=== PATIENT | female | born 1950 | race Caucasian/White ===

== ENCOUNTER → 2018-06-08 08:56 | Outpatient (CLI) | payer MEDICARE, OTHER, SELFPAY ==
[2018-06-08 12:24] LABS: ALB/GLOB Ratio 1.1 RATIO (0.9-2.4); AST(SGOT) 19 U/L (15-37); Alanine Aminotransfer ALT/SGPT 35 U/L (13-56); Albumin, Serum 3.6 g/dL (3.2-5.0); Alkaline Phosphatase 74 U/L (45-117); Anion Gap 9 (5-15); BUN 17 mg/dL (7-18); BUN/Creat Ratio 21.9 RATIO (10-20); Calcium,Total 8.5 mg/dL (8.5-10.1); Chloride 108 mmol/L (98-107); Creatinine, Serum 0.78 mg/dL (0.55-1.02); EST Glomerular Filtration Rate 79 mL/min (>60); Est Glom Filt Rate - Afr Amer 96 mL/min (>60); Globulin 3.3 g/dL (2.2-4.2); Glucose 96 mg/dL (74-106); Potassium 3.9 mmol/L (3.5-5.1); Protein, Total 6.9 g/dL (6.4-8.2); Sodium Level 142 mmol/L (136-145); Thyroid Stim Hormone (TSH) 4.14 uIU/mL (0.358-3.74)
== END ==
PROVIDERS: Family Provider Family Medicine; PCP Family Medicine; Visit Provider Family Medicine
DX: R73.01 Impaired fasting glucose (principal); G47.30 Sleep apnea, unspecified
CPT/HCPCS: 36415; 80053; 84443

== ENCOUNTER → 2018-06-15 15:07 | Outpatient (CLI) | payer MEDICARE, OTHER, SELFPAY ==
--- NOTE | 2018-06-15 15:12 | RAD_ITS ---
STUDY: X-RAY - LEFT SHOULDER REASON FOR EXAM: Female, 68 years old. Pain. TECHNIQUE: 5 view(s) of the shoulder. COMPARISON: None. FINDINGS: There is moderate degenerative arthrosis of the glenohumeral articulation. Normal acromioclavicular joint. Normal acromion. There are surgical anchors in the humeral head. Otherwise normal femoral head and visualized proximal humerus. The soft tissue structures are unremarkable. Normal visualized pulmonary apex. RAD/Shoulder min 2 Views IMPRESSION: Degenerative arthrosis. Previous surgery. No demonstrated fracture, dislocation, or destructive osseous lesion. Electronically Signed: Nicolás Verdin MD at 3:12 EDT , Service support ,
--- NOTE | 2018-06-15 15:12 | RAD_ITS ---
STUDY: X-RAY - RIGHT KNEE REASON FOR EXAM: Female, 68 years old. Pain. TECHNIQUE: 4 view(s) of the knee, including weightbearing AP and lateral views. COMPARISON: None. FINDINGS: Normal visualized distal femur. Normal visualized proximal tibia and fibula. Normal proximal tibiofibular articulation. There is severe degenerative arthrosis of the medial femorotibial compartment with severe joint space narrowing. There is mild degenerative arthrosis of the lateral femorotibial compartment. There is mild degenerative arthrosis of the patellofemoral articulation. The soft tissue structures are unremarkable. RAD/Knee 4 or More Views IMPRESSION: Degenerative arthrosis. No demonstrated fracture, dislocation, or destructive osseous lesion. Electronically Signed: Nicolás Verdin MD at 3:10 EDT , Service support ,
== END ==
PROVIDERS: Family Provider Family Medicine; PCP Family Medicine; Visit Provider Family Medicine
DX: M25.561 Pain in right knee (principal); M25.512 Pain in left shoulder
CPT/HCPCS: 73030; 73564

== ENCOUNTER → 2018-07-13 09:55 | Outpatient (CLI) | payer MEDICARE, OTHER, SELFPAY ==
[2018-07-13 12:29] LABS: Free T3 3.4 pg/mL (2.18-3.98); T4 Free Direct 0.99 ng/dL (0.76-1.46); Thyroid Stim Hormone (TSH) 3.23 uIU/mL (0.358-3.74)
== END ==
PROVIDERS: Family Provider Family Medicine; PCP Family Medicine; Visit Provider Family Medicine
DX: R94.6 Abnormal results of thyroid function studies (principal)
CPT/HCPCS: 36415; 84439; 84443; 84481

== ENCOUNTER → 2018-07-30 08:53 | Outpatient (CLI) | payer MEDICARE, OTHER, SELFPAY | PROVIDERS: Family Provider Family Medicine; PCP Family Medicine; Visit Provider Family Medicine | DX: I47.1 Supraventricular tachycardia (principal) | CPT/HCPCS: 93306; Q9957; A4216; C8929 ==

== ENCOUNTER 2018-08-26 09:30 | Outpatient (RCR) | payer MEDICARE, OTHER, SELFPAY ==
--- NOTE | 2018-08-11 11:05 | HP.PTEVAL_ITS ---
Patient's Visit Information PARVIZ FARNSWORTH is a 68 year old F referred to Physical Therapy by Pedro Simon with a diagnosis of R knee osteoarthritis/bursitis. Date of Evaluation: 07/29/18 Physical Therapist: Vinay Tatum - Visit Plan Frequency: 1x/Week Duration: 4-6 Weeks Plan: start with US to pes anserine region, quad stretching,progressing to RLE strengthening as tolerated. - Subjective Subjective: Pt reported to PT with R knee osteoarthritis. Pt reports an insidious onset of pain over a year ago. Pain is located on the anterior medial knee along the joint line. Pain worsens with increased activity (walking, ascending/decending stairs). Pt reports a constant 5/10 pain throughout the day with an increase to a 9/10 with high levels of activity. Pain has been managed through ice, rest, and Aleve PRN with little relief. Pain has limited pt's ability to perform tasks around the house specifically anything that involves bending down, squating, or picking things up off the floor. Pain has also interfered with pt's ability to sleep. Pt reports dificulty finding sleeping postion that is comfortable for both preexisting back and current knee pain. Prior to injury, pt was fairly active and would take frequent walks with their . Pt hopes to return to prior level of function and return to taking walks with their . - Pain Right Knee Pain Intensity (Out of 10): 2 Pain Intensity Range: 5, 9 Comment: medial aspect - Objective POSTURE: Pt. has increased knee valgus positioning, increased tibial IR. Pt. has normal EMMA and normal iliac crest heights. PALPATION: Pain upon palatpion of the anterior medial knee along joint line. NEURO: Normal sensation throughout, 2+ DTR bilaterally. ROM: limited knee right knee flexion 0-100 increased pain at end ranges of motions. MMT: RLE- ankle 5/5 throughout; knee extension - 3+/5, flexion 4/5; hip- flexion 4/5, abd 4/5 ext 4/5. LLE- 4+/5 throughout. GAIT: slight antalgic gait on the right. limited right knee extension during stance phase. slight right weight shift during right leg stance phase. STAIRS: step to pattern noted throughout with use of BHR. - Goals Goal 1:: Pt. to be I with HEP. Goal Time Frame: 4-6 Weeks Goal 2:: Pt. to have incerased R knee ROM to 0-0-110deg allowing for increased tolerance to all functional mobility. Goal Time Frame: 4-6 Weeks Goal 3:: Pt. to be able to walk throughout the grocery store with 0-2/10 pain in R knee. Goal Time Frame: 4-6 Weeks Goal 4:: Pt. to negotiate steps with 1 HR with reciprocal pattern with 0-2/10 pain in R knee. Goal Time Frame: 4-6 Weeks Goal 5:: Pt. to have icnreased RLE strength increased by 1/2 grade of all effected musculature allowing for increased ability to complete all functional mobility. - Rehabilitation Potential Physical Therapy Diagnosis: Pt. has signs and symptoms consistent with R knee OA with pes anserine bursitis. Pt. would benefit from PT to reduce symptoms, increase R knee ROM and strength in order to progress back to all functional mobility as tolerated. Rehabilitation Potential: Good - Anticipated Interventions Patient/Client Instruction: Educate patient on: Condition, Plan of Care, Risk Factors, Benefits of Fitness Program For the Purpose of:: To facilitate caregiver knowledge, To improve self management, To prevent re-injury, To improve ability to perform tasks related to life management, To improve tolerance to ADL's Therapeutic Exercise to Include: Strength training, Power training, Gait and locomotor training, Passive ROM, Active ROM For the Purpose of:: To decrease pain, To increase ROM, To improve muscle performance and motor function Cryotherapy (ice pack, ice massage): Yes Ultrasound (thermal/non thermal): Yes For the Purpose of:: To decrease pain, To decrease swelling/inflammation Thank you for the opportunity to evaluate your patient. For Medicare and Medicare HMO plans, please review the plan of care and approve it. It will need to be FAXED BACK to us at [phone] for Medicare purposes. Please let me know if there are questions or concerns regarding this plan of care. Physician Signature: Date:
--- NOTE | 2018-08-26 12:42 | HP.PTDCSUM ---
HP - PT D/C Summary It has been my pleasure to treat PARVIZ FARNSWORTH under orders from Pedro Simon, for the diagnosis of R knee osteoarthritis/bursitis for a total of 5 visit(s). Discharge Date: 08/26/18 Please see the following information for a summary of their discharge status. - Subjective Subjective: pt does not feel as if they are making much progress. Pt is wanted to schedule an appointment with physician to discuss posibility of injections. Pt. reports being slightly stronger, but continues to have increased pain in R knee with all functional/standing positioning. - Pain Right Knee Pain Intensity (Out of 10): 4 - Overall Improvement % Improvement: 25 - Objective Objective/Function: ROM- 0-0-102deg increased pain at end ranges. MMT: RLE ankle 5/5 throughout. Knee- flexion 4+/5, ext 4+/5 mild increase in symptoms. Hip- flexion- 4/5 mild increase NW, abd 4+/5 NE, ext 4+/5. GAIT: Pt. is able to ambulate without AD, but does have increased symptom to 5/10 with all R stance phases of gait and stairs. Pt. has slight increase in R lateral translation during stance phase on R side. sufficient strength but limited due to pain. - Goals Goal 1:: Pt. to be I with HEP. Goal Progress: Goal Met Goal 2:: Pt. to have incerased R knee ROM to 0-0-110deg allowing for increased tolerance to all functional mobility. Goal Progress: Progressing Goal 3:: Pt. to be able to walk throughout the grocery store with 0-2/10 pain in R knee. Goal Progress: Progressing Goal 4:: Pt. to negotiate steps with 1 HR with reciprocal pattern with 0-2/10 pain in R knee. Goal Progress: Not Progressing Goal 5:: Pt. to have icnreased RLE strength increased by 1/2 grade of all effected musculature allowing for increased ability to complete all functional mobility. Goal Progress: Progressing - Plan Plan: refered to physician for injections - D/C Information Discharge Comments: Pt. reports being a little bit stronger in her hip and knee, but has not noticed much change in pain. Pt. was treated with strengthening/ROM and modalities. Pt. had some relief with modalities, but not lasting. She has slight increase in ROM and strength, but contiunes to have increased difficulty with functional mobility and walking. Pt. was curious about having injections at this point in time. I recommend that she follow up with her primary care physician at this point in time to determine best course of action. If there are questions or concerns regarding this patient's physical therapy, please feel free to call me at [phone]. Thank you for the referral of this patient. Sincerely, Vinay Tatum
== END 2018-08-26 19:00 | disposition home or self-care (01) ==
LOC: PT 09:30
PROVIDERS: Family Provider Family Medicine; PCP Family Medicine; Visit Provider Family Medicine
DX: M17.11 Unilateral primary osteoarthritis, right knee (principal); M70.51 Other bursitis of knee, right knee
CPT/HCPCS: 97035; 97110; 97162

== ENCOUNTER → 2018-11-01 09:47 | Outpatient (CLI) | payer MEDICARE, OTHER, SELFPAY ==
[2018-11-01 12:19] LABS: Hematocrit 45.3 % (37-47); Hemoglobin 14.8 g/dl (12.0-15.0); Mean Corp Hgb Conc 32.7 g/gl (32-36); Mean Corpuscular Hgb 30.6 pg (27.0-32.0); Mean Corpuscular Volume 93.6 fL (81-99); Mean Platelet Vol. 9.9 fl (6.2-12.0); Platelet Count 236 K/mm3 (150-450); RBC Distribution Width SD 47.8 fl (35.1-43.9); Red Blood Count 4.84 M/mm3 (4.2-5.4); White Blood Count 8.2 K/mm3 (4.4-11.0)
[2018-11-01 12:41] LABS: Vitamin B12 860 pg/mL (211-911); Vitamin D,25 Hydroxy 27.5 ng/mL (29.95-100.01)
[2018-11-01 12:42] LABS: Scan Indicated on CBC? Y/N NO
[2018-11-01 12:49] LABS: Anion Gap 7 (5-15); BUN 19 mg/dL (7-18); BUN/Creat Ratio 26.8 RATIO (10-20); Calcium,Total 9.3 mg/dL (8.5-10.1); Chloride 107 mmol/L (98-107); Creatinine, Serum 0.71 mg/dL (0.55-1.02); EST Glomerular Filtration Rate 88 mL/min (>60); Est Glom Filt Rate - Afr Amer 106 mL/min (>60); Free T3 2.8 pg/mL (2.18-3.98); Glucose 88 mg/dL (74-106); Iron 108 ug/dL (50-170); Potassium 4.1 mmol/L (3.5-5.1); Sodium Level 139 mmol/L (136-145); T4 Free Direct 0.94 ng/dL (0.76-1.46); Thyroid Stim Hormone (TSH) 3.59 uIU/mL (0.358-3.74)
== END ==
PROVIDERS: Family Provider Family Medicine; PCP Family Medicine; Visit Provider Family Medicine
DX: R94.6 Abnormal results of thyroid function studies (principal); R53.83 Other fatigue
CPT/HCPCS: 36415; 80048; 82306; 82607; 83540; 84439; 84443; 84481; 85027

== ENCOUNTER → 2019-02-21 08:45 | Outpatient (CLI) | payer MEDICARE, BC, SELFPAY | PROVIDERS: Family Provider Family Medicine; PCP Family Medicine; Visit Provider Family Medicine | DX: R79.89 Other specified abnormal findings of blood chemistry (principal) | CPT/HCPCS: 36415; 82306 ==

== ENCOUNTER 2019-03-11 23:36 | Emergency (ER) | payer MEDICARE, BC, SELFPAY ==
[2019-03-11 23:39] VITALS: BP 164/86; PULSE 89; RESP 18; TEMP 36.8; O2SAT 95; BMI 42.4
[2019-03-12 01:30] LABS: Hematocrit 47.2 % (37-47); Hemoglobin 16.3 g/dl (12.0-15.0); Mean Corp Hgb Conc 34.5 g/gl (32-36); Mean Corpuscular Hgb 31.5 pg (27.0-32.0); Mean Corpuscular Volume 91.1 fL (81-99); RBC Distribution Width CV 13.6 % (11.6-14.6); RBC Distribution Width SD 45.4 fl (35.1-43.9); Red Blood Count 5.18 M/mm3 (4.2-5.4); White Blood Count 11.7 K/mm3 (4.4-11.0)
[2019-03-12 01:31] LABS: Absolute Neutrophil Count 7.8 X10^3/uL (2.0-7.7); Basophil# 0.05 X10^3/uL; Basophil% 0.4 % (0-1); Eosinophil# 0.42 X10^3/uL; Eosinophils% 3.6 % (0-5); Lymphocyte % 17.1 % (19-41); Mean Platelet Vol. 9.5 fl (6.2-12.0); Monocyte# 1.34 X10^3/uL; Monocyte% 11.5 % (0-10); Neutrophil # 7.84 X10^3/uL (2.7-7.7); Neutrophil % 67.1 % (47-70); POSITIVE COUNT NO; POSITIVE DIFFERENTIAL NO; POSITIVE MORPHOLOGY NO; Platelet Count 206 K/mm3 (150-450)
[2019-03-12 01:43] LABS: Anion Gap 8 (5-15); BUN 24 mg/dL (7-18); BUN/Creat Ratio 27.6 RATIO (10-20); Calcium,Total 9.3 mg/dL (8.5-10.1); Chloride 104 mmol/L (98-107); Creatinine, Serum 0.87 mg/dL (0.55-1.02); EST Glomerular Filtration Rate 69 mL/min (>60); Est Glom Filt Rate - Afr Amer 84 mL/min (>60); Estimated Creatinine Clearance 54.18 ml/min; Glucose 113 mg/dL (74-106); Potassium 3.7 mmol/L (3.5-5.1); Sodium Level 138 mmol/L (136-145)
[2019-03-12 01:49] LABS: D-Dimer Quantitative (DVT/PE) 2.48 FEU/ug/m (0.27-0.49)
--- NOTE | 2019-03-12 02:00 | VDLE_ITS ---
Reason For Study: LLE pain Procedure LEFT Exam performed in department. GSV is normal. The study was technically difficult. PTV is compressible. The exam was diagnostic. LT PerV is compressible. A preliminary report was called and/or faxed CFV, FV, Profunda V, POP V, T/P trunk are to ED and sent to PCP Dr. Simon. DILATED & NON-COMPRESSIBLE. Image #13 is the DEIV. Gastrocnemius V is compressible. DEIV demonstrates flow with color & pulsed doppler. Interpretation Summary Acute deep vein thrombosis is noted in the left common femoral vein. Acute deep vein thrombosis is noted in the left femoral vein. Acute deep vein thrombosis is noted in the left profunda femoris vein. Acute deep vein thrombosis is noted in the left popliteal vein. Acute deep vein thrombosis is noted in the left tibio-peroneal trunk. The left posterior tibial vein, peroneal vein, and gastrocnemius vein are patent and compressible. The left great saphenous vein is patent and compressible. The distal left external iliac vein is visualized, and appears to be patent. Ordering Physician: Bam Kelly Referring Physician: Pedro Simon Performed By: Asia Walker RDCS, RVT
--- NOTE | 2019-03-12 02:02 | ED.DCSUM_ITS ---
- ER Visit Summary Date of Service: 03/12/19 Chief Complaint: Left leg pain and swelling History of Present Illness: The patient is a 69 F who presents with left leg pain and swelling. She is concerned for possible DVT. She has a history of prior DVT after surgery and she was also on oral control at the time. She complains of swelling in the left leg for about 2 weeks. She recently saw her primary care physician. She was also complaining of some cramping pain and they thought it may be related to potassium. She states her pain extends from the calf to behind the knee and up to her thigh. This is worsened in the last 2 days. No fevers. No chest pain or shortness of breath. Physical Examination: Afebrile vitals unremarkable except blood pressure 164/86 Heart regular rate No respiratory distress Patient does have left calf tenderness she has 1+ edema she has easily palpable dorsalis pedis pulses normal sensation light touch brisk capillary refill no cyanosis or pallor Test Results: Labs notable for white count 11.7, hemoglobin 16.3. D-dimer elevated at 2.48. Emergency Department Course and Treatment: Given presentation, prior history of DVT, elevated d-dimer, patient was empirically treated for DVT with subcutaneous Lovenox. We will have her return tomorrow for definitive study as ultrasound is not available overnight. At this time she has no evidence of phlegmasia alba dolens or phlegmasia cerulea dolens. She does understand return for new or worsening symptoms and was discharged home. Treatment Plan: [] Disposition: Discharge Impression: Left leg pain, possible DVT This note was generated with [employer] dictation software. It may contain incorrect words, spelling, and punctuation that were not noted in review of the chart prior to signing ED Disposition - Plan for ED Patient: Referrals: Arslan Simon MD [Primary Care Provider] -
--- NOTE | 2019-03-12 02:03 | ED.DEP ---
ED Disposition - Plan for ED Patient: Instructions: ED DVT Referrals: Arslan Simon MD [Primary Care Provider] -
[2019-03-12] MEDS: Enoxaparin 120 MG/0.8 ML Syringe SC (02:18)
[2019-03-12 02:20] VITALS: BP 159/76; PULSE 83; RESP 16; O2SAT 95
== END 2019-03-12 02:21 | disposition home or self-care (01) ==
PROVIDERS: Emergency Provider Emergency Medicine; Family Provider Family Medicine; PCP Family Medicine
DX: M79.605 Pain in left leg (principal); I10 Essential (primary) hypertension; I82.412 Acute embolism and thrombosis of left femoral vein; Z86.718 Personal history of other venous thrombosis and embolism
CPT/HCPCS: 80048; 85025; 85379; 85610; 93971; 96372; 99281; 99283; A4216

== ENCOUNTER 2019-03-12 11:02 | Emergency (ER) | payer MEDICARE, BC, SELFPAY ==
[2019-03-11 23:39] VITALS: BMI 42.4
[2019-03-12 11:03] VITALS: BP 137/79; PULSE 79; RESP 16; TEMP 36.9; O2SAT 98; BMI 42.4
--- NOTE | 2019-03-12 11:18 | ED.VISSUMM ---
- ER Visit Summary Date of Service: 03/12/19 Chief Complaint: Left leg DVT History of Present Illness: The patient is a 69 F who came in this morning for an outpatient ultrasound. She was seen last night for left leg swelling. She was given a dose of Lovenox and came back today for her ultrasound. She has a history of a DVT 18 years ago. Her swelling is been ongoing for about 6 days. No chest pain or shortness of breath Physical Examination: Vitals are reviewed. Left leg exam reveals diffuse mild swelling. There is no erythema. She has 1+ DP pulses. She has full range of motion without any significant pain. Test Results: Outpatient Doppler report was reviewed. There is DVT of the femoral vein, common femoral vein, popliteal vein and the TP trunk Emergency Department Course and Treatment: Patient will be started on Eliquis. I spoke with Dr. Mera who is on-call for her PCP. He will make the PCP aware that we will be starting anticoagulation. Treatment Plan: [] Disposition: Discharge Impression: Left leg DVT This note was generated with [employer] dictation software. It may contain incorrect words, spelling, and punctuation that were not noted in review of the chart prior to signing ED Disposition - Plan for ED Patient: Referrals: Arslan Simon MD [Primary Care Provider] -
--- NOTE | 2019-03-12 11:19 | ED.DEP ---
ED Disposition - Plan for ED Patient: Disposition: Home or Assisted Living Instructions: ED DVT Prescriptions: Apixaban [Eliquis] 5 mg PO BID #74 tab Referrals: Arslan Simon MD [Primary Care Provider] -
[2019-03-12] MEDS: APIXABAN 5 MG TABLET 10 MG PO (11:57)
== END 2019-03-12 12:18 | disposition home or self-care (01) ==
LOC: ED 11:31
PROVIDERS: Emergency Provider Emergency Medicine; Family Provider Family Medicine; PCP Family Medicine
DX: I82.412 Acute embolism and thrombosis of left femoral vein (principal); Z86.718 Personal history of other venous thrombosis and embolism
CPT/HCPCS: 99283

== ENCOUNTER → 2019-03-12 | Outpatient (CLI) | payer MEDICARE, BC, SELFPAY ==
[2019-03-11 23:39] VITALS: BMI 42.4
== END | disposition home or self-care (01) ==
PROVIDERS: Family Provider Family Medicine; PCP Family Medicine; Visit Provider Emergency Medicine
DX: R69 Illness, unspecified (principal)

== ENCOUNTER → 2019-03-31 08:15 | Outpatient (CLI) | payer MEDICARE, BC, SELFPAY ==
[2019-03-12 11:03] VITALS: BMI 42.4
[2019-03-31 10:13] LABS: Anion Gap 7 (5-15); BUN 18 mg/dL (7-18); Calcium,Total 8.9 mg/dL (8.5-10.1); Chloride 104 mmol/L (98-107); Creatinine, Serum 0.78 mg/dL (0.55-1.02); EST Glomerular Filtration Rate 78 mL/min (>60); Est Glom Filt Rate - Afr Amer 94 mL/min (>60); Glucose 107 mg/dL (74-106); Potassium 3.9 mmol/L (3.5-5.1); Sodium Level 139 mmol/L (136-145)
== END ==
PROVIDERS: Family Provider Family Medicine; PCP Family Medicine; Referring Provider Family Medicine; Visit Provider Family Medicine
DX: I10 Essential (primary) hypertension (principal)
CPT/HCPCS: 36415; 80048

== ENCOUNTER → 2019-04-26 | Outpatient (CLI) | payer MEDICARE, BC, SELFPAY ==
[2019-04-26 10:23] LABS: Anion Gap 11 (5-15); BUN 18 mg/dL (7-18); BUN/Creat Ratio 20.8 RATIO (10-20); Calcium,Total 9.2 mg/dL (8.5-10.1); Chloride 107 mmol/L (98-107); Creatinine, Serum 0.86 mg/dL (0.55-1.02); EST Glomerular Filtration Rate 70 mL/min (>60); Est Glom Filt Rate - Afr Amer 84 mL/min (>60); Glucose 118 mg/dL (74-106); Potassium 3.9 mmol/L (3.5-5.1); Sodium Level 143 mmol/L (136-145)
== END | disposition home or self-care (01) ==
LOC: MFPLAB 08:51
PROVIDERS: Family Provider Family Medicine; PCP Family Medicine; Referring Provider Family Medicine; Visit Provider Family Medicine
DX: I10 Essential (primary) hypertension (principal)
CPT/HCPCS: 36415; 80048

== ENCOUNTER → 2019-08-16 | Outpatient (CLI) | payer MEDICARE, BC, SELFPAY ==
--- NOTE | 2019-08-16 08:39 | ECHOCS_ITS ---
Reason For Study: DYSPNEA Procedure This was a 2D Doppler, Color Flow transthoracic echocardiogram. The study was technically difficult. Contrast injection was performed. Exam performed in department. Left Ventricle Normal LV size. Left ventricular systolic function is normal. The estimated ejection fraction is 60 %. Diastolic function is indeterminate. No regional wall motion abnormalities noted. Right Ventricle Normal RV size. Normal systolic function. Atria The left atrium is mildly enlarged. Normal right atrium. No doppler evidence for ASD. Mitral Valve There is no mitral annular calcification. Normal mitral valve. Trivial mitral valve insufficiency. Tricuspid Valve Normal tricuspid valve. Trivial tricuspid valve insufficiency. Unable to estimate RV systolic pressure/pulmonary artery pressure due to technically difficult study. Aortic Valve Trisinus/trileaflet aortic valve. Normal aortic valve. Pulmonic Valve The pulmonic valve is not well visualized. Trivial pulmonic valve insufficiency. Great Vessels Normal sized aortic root. Pericardium/Pleural No pericardial effusion. Epicardial fat. Medication 22 gauge I.V. with prn adaptor inserted into right arm. Diluted definity 3.0ml given slow IV push to enhance endocardial definition. MMode/2D Measurements & Calculations LVIDd: 4.5 cm IVSd: 0.86 cm Ao root diam: 3.6 cm LVIDs: 3.3 cm LVPWd: 0.92 cm RVDd: 3.7 cm FS: 28.2 % LAV(MOD-bp): 56.9 ml LVAd ap4: 32.3 cm2 SV(MOD-sp4): 65.1 ml LAV(MOD-bp) Indexed: 26.5 ml/m2 EDV(MOD-sp4): 112.7 ml LAV(MOD-sp2): 56.7 ml EDV(sp4-el): 118.6 ml LAV(MOD-sp4): 54.1 ml LVAs ap4: 17.9 cm2 ESV(MOD-sp4): 47.6 ml ESV(sp4-el): 48.9 ml EF(MOD-sp4): 57.8 % EF(sp4-el): 58.8 % SV(sp4-el): 69.7 ml LA A4 area: 19.4 cm2 LA dimension(2D): 4.1 cm RA A4 area: 13.3 cm2 Time Measurements MV dec time: 0.20 sec Doppler Measurements & Calculations MV E max arcenio: 84.2 cm/sec Lat Peak E' Arcenio: 8.1 cm/sec Med Peak E' Arcenio: 4.8 cm/sec MV A max arcenio: 130.8 cm/sec E/E' lat: 10.4 E/E' med: 17.6 MV E/A: 0.64 Ao V2 max: 162.2 cm/sec LV V1 max: 137.9 cm/sec PA V2 max: 94.2 cm/sec Ao max P.5 mmHg LV V1 max P.6 mmHg Interpretation Summary The study was technically difficult. Contrast injection was performed. Left ventricular systolic function is normal. The estimated ejection fraction is 60 %. The left atrium is mildly enlarged. Trivial mitral valve insufficiency. Trivial tricuspid valve insufficiency. Trivial pulmonic valve insufficiency. Epicardial fat. Unable to estimate RV systolic pressure/pulmonary artery pressure due to technically difficult study. Diastolic function is indeterminate. Ordering Physician: Dionicio Sneed Referring Physician: FARNAZ PECK Performed By: Sherly Velázquez, TEENA, RVT
== END | disposition home or self-care (01) ==
LOC: CVS 08:38
PROVIDERS: Family Provider Family Medicine; PCP Family Medicine; Referring Provider Internal Medicine Pulmonary Disease; Visit Provider Internal Medicine Pulmonary Disease
DX: R06.00 Dyspnea, unspecified (principal)
CPT/HCPCS: 93306; Q9957; A4216; C8929

== ENCOUNTER → 2019-09-20 | Outpatient (CLI) | payer MEDICARE, BC, SELFPAY ==
--- NOTE | 2019-09-20 10:32 | RAD_ITS ---
STUDY: X-RAY CHEST REASON FOR EXAM: Female, 69 years old. Short of breath. TECHNIQUE: 2 view chest. COMPARISON: 02/27/2016 CTA chest. FINDINGS: No evidence of pneumonia, pulmonary edema, pneumothorax or pleural effusion. Cardiac silhouette, hilar and mediastinal contours with no acute findings. Atherosclerosis of the thoracic aorta. Degenerative osseous changes with no acute osseous abnormality. Orthopedic anchors left humeral head. RAD/Chest PA and Lateral IMPRESSION: No acute findings. Electronically Signed: Luciano Mitchell, at 18:50 EDT Tel , Service support ,
[2019-09-20 12:16] LABS: Absolute Lymphocyte Count 1.62 X10^3/uL (0.83-4.51); Absolute Neutrophil Count 4.7 X10^3/uL (2.0-7.7); Basophil# 0.08 X10^3/uL; Basophil% 1.1 % (0-1); Eosinophils% 2.7 % (0-5); Hematocrit 47.3 % (37-47); Hemoglobin 15.8 g/dL (12.0-15.0); Lymphocyte # 1.62 X10^3/ul (4.0); Lymphocyte % 21.8 % (19-41); Mean Corp Hgb Conc 33.4 g/dL (32-36); Mean Corpuscular Hgb 30.7 pg (27.0-32.0); Mean Platelet Vol. 9.7 fl (6.2-12.0); Monocyte# 0.78 X10^3/uL; Monocyte% 10.5 % (0-10); NRBC Flagged by Analyzer 0 % (0-5); Neutrophil # 4.72 X10^3/uL (2.7-7.7); Neutrophil % 63.6 % (47-70); Platelet Count 260 K/mm3 (150-450); RBC Distribution Width CV 13.2 % (11.6-14.6); RBC Distribution Width SD 44.6 fl (35.1-43.9); Red Blood Count 5.14 M/mm3 (4.2-5.4); White Blood Count 7.4 K/mm3 (4.4-11.0)
[2019-09-20 12:32] LABS: AST(SGOT) 13 U/L (15-37); Alanine Aminotransfer ALT/SGPT 32 U/L (13-56); Albumin, Serum 3.7 g/dL (3.2-5.0); Alkaline Phosphatase 74 U/L (45-117); Anion Gap 6 (5-15); BUN 18 mg/dL (7-18); BUN/Creat Ratio 21.6 RATIO (10-20); CRP 3.52 mg/L (0.0-3.0); Calcium,Total 9.4 mg/dL (8.5-10.1); Chloride 105 mmol/L (98-107); Creatinine, Serum 0.83 mg/dL (0.55-1.02); EST Glomerular Filtration Rate 73 mL/min (>60); Est Glom Filt Rate - Afr Amer 88 mL/min (>60); Ferritin 111 ng/mL (8-252); Globulin 3.6 g/dL (2.2-4.2); Glucose 90 mg/dL (74-106); Hemoglobin A1c 5.6 % (4.2-6.3); Iron 84 ug/dL (50-170); Potassium 3.9 mmol/L (3.5-5.1); Protein, Total 7.3 g/dL (6.4-8.2); Rheumatoid Factor < 10.0 IU/mL (<15); Sodium Level 138 mmol/L (136-145)
[2019-09-20 12:33] LABS: Vitamin B12 464 pg/mL (211-911); Vitamin D,25 Hydroxy 40.3 ng/mL (29.95-100.01)
[2019-09-21 21:18] LABS: ANTINUCLEAR ANTIBODIES DIRECT Negative (Negative)
[2019-09-22 16:07] LABS: PROEL- A/G Ratio 1.2 (0.7-1.7); PROEL- Albumin 3.5 g/dL (2.9-4.4); PROEL- Alpha-1 Globulin 0.3 g/dL (0.0-0.4); PROEL- Alpha-2 Globulin 0.8 g/dL (0.4-1.0); PROEL- Beta Globulin 1.2 g/dL (0.7-1.3); PROEL- Gamma Globulin 0.7 g/dL (0.4-1.8); PROEL- TOTAL PROTEIN 6.5 g/dL (6.0-8.5); PROELU- Albumin, Urine 21.5 % (.); PROELU- Alpha-1-Globulin,Ur 3.8 % (.); PROELU- Alpha-2-Globulin,Ur 19.2 % (.); PROELU- Beta Globulin, Ur 33.3 % (.); PROELU- Gamma Globulin, Ur 22.2 % (.); Total Protein, Ur 4.8 mg/dL (Not Estab.)
== END | disposition home or self-care (01) ==
LOC: MTRAD 10:29
PROVIDERS: Family Provider Family Medicine; PCP Family Medicine; Referring Provider Family Medicine; Visit Provider Family Medicine
DX: R06.02 Shortness of breath (principal); R73.01 Impaired fasting glucose; R53.83 Other fatigue; R79.89 Other specified abnormal findings of blood chemistry
CPT/HCPCS: 36415; 71046; 80053; 82306; 82607; 82728; 83036; 83540; 84165; 84166; 84443; 85025; 86038; 86140; 86431

== ENCOUNTER → 2020-07-09 08:17 | Outpatient (CLI) | payer MEDICARE, BC, SELFPAY ==
[2020-07-09 09:46] LABS: Hemoglobin 15.5 g/dL (12.0-15.0); Mean Corpuscular Hgb 30.7 pg (27.0-32.0); Mean Corpuscular Volume 93.1 fL (81-99); Platelet Count 273 K/mm3 (150-450); RBC Distribution Width CV 13.6 % (11.6-14.6); RBC Distribution Width SD 46.3 fl (35.1-43.9); Red Blood Count 5.05 M/mm3 (4.2-5.4); White Blood Count 6.4 K/mm3 (4.4-11.0)
[2020-07-09 10:16] LABS: International Normalized Ratio 1.8; Partial Thromboplast Time 38.3 Seconds (24.1-36.2); Prothrombin Time (Protime)PT. 20.1 SECONDS (11.7-14.9); Vitamin D,25 Hydroxy 51.9 ng/mL
[2020-07-09 10:34] LABS: AST(SGOT) 12 U/L (15-37); Alanine Aminotransfer ALT/SGPT 33 U/L (13-56); Albumin, Serum 3.6 g/dL (3.2-5.0); Alkaline Phosphatase 71 U/L (45-117); Anion Gap 9 (5-15); BUN 17 mg/dL (7-18); BUN/Creat Ratio 21.4 RATIO (10-20); Calcium,Total 8.7 mg/dL (8.5-10.1); Chloride 105 mmol/L (98-107); Cholesterol 149 mg/dL (200); Creatinine, Serum 0.79 mg/dL (0.55-1.02); EST Glomerular Filtration Rate 77 mL/min (>60); Est Glom Filt Rate - Afr Amer 93 mL/min (>60); Globulin 3.5 g/dL (2.2-4.2); Glucose 103 mg/dL (74-106); High Density Lipoprotein 53 mg/dL; Potassium 3.4 mmol/L (3.5-5.1); Protein, Total 7.1 g/dL (6.4-8.2); Sodium Level 139 mmol/L (136-145); Thyroid Stim Hormone (TSH) 3.96 uIU/mL (0.358-3.74); Triglycerides 92 mg/dL; Very Low Density Lipoprotein 18 mg/dL (5-40)
[2020-07-10 10:27] LABS: T4 Free Direct 1.14 ng/dL (0.76-1.46)
== END ==
PROVIDERS: PCP Family Medicine; Referring Provider Family Medicine; Visit Provider Family Medicine
DX: Z01.818 Encounter for other preprocedural examination (principal); R79.89 Other specified abnormal findings of blood chemistry; R73.01 Impaired fasting glucose; I10 Essential (primary) hypertension; M85.80 Other specified disorders of bone density and structure, unspecified site; M79.89 Other specified soft tissue disorders
CPT/HCPCS: 36415; 80053; 80061; 82306; 84439; 84443; 85027; 85610; 85730

== ENCOUNTER → 2020-07-20 12:57 | Outpatient (CLI) | payer MEDICARE, BC, SELFPAY ==
--- NOTE | 2020-07-20 13:02 | CT_ITS ---
STUDY: CT SCAN LOWER EXTREMITY RIGHT REASON FOR EXAM: Female, 70 years old. Right knee varus deformity, [facility] protocol. RADIATION DOSAGE (If Supplied By Facility): CTDIvol = ( 19.41 ) mGy, DLP = ( 1186.15 ) mGycm. Individualized dose optimization techniques were used for this CT.? TECHNIQUE: Multiple axial tomographic images of the right hip, knee and ankle joints were obtained. Coronal and sagittal reconstruction was obtained as well. COMPARISON: None. FINDINGS: The right hip joint is unremarkable. No significant abnormality is seen. Marked degree of joint space narrowing with degenerative spurring seen along the medial compartment of the knee joint. There is also evidence of degenerative spur formation in the anterior aspect of the femoral condyles. Mild degree of joint space narrowing involving the patellofemoral joint. There is evidence of mild sclerotic changes at the level of the medial and lateral femoral condyles. The ankle mortise is symmetrical. No significant abnormality is seen. CT/Extremity Lower without Contra IMPRESSION: Marked degree of osteoarthritis and joint space narrowing with degenerative spur formation along the medial compartment of the knee joint. Electronically Signed: Bashir Crenshaw, at 15:03 EDT , Service support ,
== END ==
PROVIDERS: PCP Family Medicine; Referring Provider Specialist; Visit Provider Specialist
DX: M21.161 Varus deformity, not elsewhere classified, right knee (principal)
CPT/HCPCS: 73700

== ENCOUNTER 2020-08-08 09:53 | Observation (INO) | payer MEDICARE, BC, SELFPAY ==
--- NOTE | 2020-07-20 23:50 | HP.PCM_ITS ---
History and Physical History and Physical [facility] Patient Name: Bessy Tracy : 1950 From: ISMAEL AGRAWAL PA-C DATE OF SURGERY: 08/08/2020 SCHEDULED PROCEDURE: right total knee arthroplasty HISTORY OF PRESENT ILLNESS: Preoperative history and physical exam was performed on July 20, 2020. This is a 70-year-old female who has been having ongoing pain for over 4 years with no known injury. Her right knee pain has been constant, aching, sharp, stabbing, sore. She has increased pain with stairs, walking, and driving. She has difficult time with activities of daily living including bathing, housework, shopping, and leisure activities such as playing with her grandkids and walking. She feels unsafe getting down on her knees and using ladders. Patient has attempted conservative measures consisting of corticosteroid injection with initial injections helping followed by minimal relief with injections. She has tried physical therapy with no relief in symptoms. She has tried Visco supplementation injections with no relief in symptoms. She has also attempted post acute care registered nurse with no relief in symptoms. She has been on oral medications consisting of Celebrex and exercise Tylenol with no relief in symptoms. Patient denies previous surgery on the right knee. She has attempted a brace with no relief in symptoms. Patient currently denies chest pain, shortness of breath, fevers chills, recent infections. She has medical history pertinent for sleep apnea, hypertension, previous history of blood clots which occurred in 2001 after a surgery and in 2019. She has been on Coumadin. We'll obtain surgical clearance from the primary care physician Dr. Rowan. At this time he is getting clearance to stop the Coumadin 5 days before surgery and he will be bridging with Lovenox 120 mg b.i.d. Lovenox will be stopped the night prior to the surgery and then restarted postoperatively with the Coumadin. He will recommend stopping the Lovenox once the INR is greater than 2. After failing conservative measures and discussing treatment options with Dr. Dat [place], the patient does wish to proceed with right total knee arthroplasty. She also has an adhesive allergy and we will avoid using any adhesive postoperatively. She also reports having a reaction from previous surgery at [facility] with absorbable sutures. REVIEW OF SYSTEMS: ROS: Const: Denies anorexia, change in appetite, fever, hard of hearing, vision problems and weight change. CV: Denies chest pain, heart murmur, irregular heartbeat and peripheral vascular disease. Resp: Denies asthma, cough, pneumonia, sleep apnea, SOB, tuberculosis and wheezing. GI: Denies constipation, diarrhea, difficulty swallowing, heartburn, nausea, bloody stools and vomiting. : Urinary: denies incontinence. Musculo: Reports trouble walking and weakness of the legs, but denies leg swelling, limp and weakness. Skin: Reports history of shingles, but denies Raynaud's and tattoo. Neuro: Reports numbness and tingling of the left hand and tremor but denies ambulatory dysfunction, dizziness and numbness/tingling. Psych: Denies anxiety, depression, insomnia, mental illness and stress. Sarmad/Lymph: Denies anemia, bleeding/bruising tendency and past transfusion. Reviewed, no changes. PAST MEDICAL HISTORY: PMH: Problem List: Obesity, Body mass index 40+ - severely obese, Acquired genu varum, Localized, primary osteoarthritis Medical Problems: Melanoma, Vocal Chord Disfunction, Superventricular Tachycardia, Diastolic Disfuntion, Blood Clots, Sleep Apnea, Degenerative Disc Disease, Osteopenia, Basal Cell Carcinoma Accidents: None Surgical Hx: Tonsillectomy, [place] Teeth, D & C, Tubal Ligation Shoulder Arthroscopy LT - ROTATOR CUFF SURGERY - DR BETANCUR @[facility] Lumbar Micro Surgery Bulging Disc - DR SANJUANA RICKETTS @ [facility] Moh's Surgery - SKIN CA @ [facility] Moh's Surgery - FOR MELANOMA Lumpectomy - (2010) BREAST Anesthesia Complications: Vomiting, Nausea, Hypotension, Trouble Waking Up Assistive Devices: Glasses, Cpap Reviewed and updated. SOCIAL HISTORY: SH: Marital: .Occupation: Retired.Work Status: Retired.Hand Dominance: Right- handed. Personal Habits: Cigarette Use: Never Smoked Cigarettes.Alcohol: Denies use.Drug Use: Denies Use.Enjoy Exercising: Exercises 1-3 X/Week. Reviewed, no changes. VITALS: Ht: 64 Wt: 247lb Wt k.039 BMI: 42.4 BP: 122/67 Pulse: 72 Resp: 16 T: 96.5 T: 35.8C ALLERGIES: Sulfa - Rash Atenolol Adhesives Disposable Stitches - chromic gut and monocryl MEDICATIONS: Biotin 1000 mcg 1po tid, Dilt-XR 120 mg 1po qday, Warfarin Sodium 4 mg 1 by mouth every day, Furosemide 20 mg 1 by mouth every day, Magnesium 200 mg 1po qday, Calcium + D 500-1000-40 MG-Unt-mcg 1po qday, Vitamin D3 1po qday PRE-OP EXAM: General appearance:NORMAL Other: Eyes: Conjunctivae and lids: NORMAL Pupils: ERR Ears, Nose, Mouth, and Throat: NORMAL Other: Inspection of lips, teeth and gums: NORMAL Other: Neck: Examination of neck: no masses noted. Respiratory: Assessment of respiratory effort: NORMAL Other: Auscultation of lungs: clear to auscultation no wheezes, rhonchi or rales. Cardiovascular: Auscultation of heart: regular rate and rhythm, no murmurs, gallops or rubs. Exam of carotid arteries: NORMAL Other: Gastrointestinal: Exam of abdomen: soft, nontender, nondistended bowel sounds present. PHYSICAL EXAMINATION: She walks with an antalgic gait. Patient's right knee is cool to touch without erythema or signs of infection. Varus deformity appreciated. Varus deformity is partially correctable. Range of motion: Lacks 10 of full extension to 140 flexion. Sensation intact to light touch. Neurovascularly intact. IMAGING STUDIES: X-rays of the right knee reveal joint space narrowing with varus alignment, subcondylar sclerosis, osteophyte formation consistent with severe stage IV osteoarthritis. IMPRESSION: 1. Severe right knee osteoarthritis 2. Hypertension 3. Sleep apnea 4. History of blood clots 2000 and 2019: Currently on Coumadin 5. Degenerative disc disease 6. History of basal cell carcinoma PLAN: Dr. Dat Cuba did discuss and review with the patient all treatment options including surgical versus nonsurgical options. Patient does wish to proceed with the above-stated procedure. Potential risks, benefits, and complications of the procedure were discussed in detail including but not limited to , infection, nerve and blood vessel damage, persistent pain, numbness, tingling, paresthesias, blood clot, pulmonary embolism, and requirement for possible further surgery. The patient expressed full understanding and has no further questions for the doctor. Patient does agree to proceed with the above-stated procedure and has signed the surgery consent form. We discussed the current risks associated with COVID 19. This does include the risk of exposure while in the hospital. Patient was reassured local hospitals have low infection rates and are taking all necessary precautions to avoid exposure to patients. In addition, we discussed strategies that can be used to help limit exposure including those that limit the patient's time in the ho spital. Also using strategies to limit the patient's need for continued inpatient services after being discharged from the hospital. Patient was notified that we will need to comply with any screening or testing the hospital wishes to perform or that surgery may be delayed for any positive results. This dictation was created using voice recognition software. Phonetic and/or grammatical errors may exist. ___ I have re-examined the patient. There are no clinical changes since date of exam. ___ See progress notes for changes. ___ Dictated on admission Date: Time: Signature:
[2020-08-02 09:34] LABS: Magnesium 2.5 mg/dL (1.6-2.6)
[2020-08-08] VITALS (11 sets, daily range): BP systolic 116–135; BP diastolic 48–77; PULSE 68–93; RESP 16–20; TEMP 36.1–36.8; O2SAT 93–100; BMI 42.0; BMI 42.1
--- NOTE | 2020-08-08 07:08 | RAD_ITS ---
STUDY: X-RAY - RIGHT KNEE REASON FOR EXAM: Female, 70 years old. POST OP. TECHNIQUE: 2 view(s) of the knee. COMPARISON: Comparison is made with prior study dated 06/15/2018. FINDINGS: Normal visualized distal femur. Normal visualized proximal tibia and fibula. Normal proximal tibiofibular articulation. The patient is status post total knee replacement. There is good alignment. Postoperative soft tissue changes. RAD/Knee 1 or 2 Views IMPRESSION: Status post total knee replacement. There is good alignment. Postoperative soft tissue changes. Electronically Signed: Bashir Crenshaw, at 15:02 EDT , Service support ,
[2020-08-08 08:45] LABS: Prothrombin Time Fingerstick 15.2 SEC (11.9-14.4)
[2020-08-08] MEDS: Lactated Ringers 1,000 ML 999 ML IV ×2 (09:15→12:40)
[2020-08-08] MEDS: Gabapentin 600 MG Tablet PO (09:48)
[2020-08-08] MEDS: Acetaminophen 500 MG Tablet 1000 MG PO ×2 (09:49→17:29)
[2020-08-08 10:41] LABS: Bedside Glucose 79 mg/dL (70-110)
[2020-08-08] MEDS: dexAMETHasone 10 MG/ML Vial IV (10:58)
--- NOTE | 2020-08-08 12:06 | PCM.OPRPT ---
Report of Operation Date of Procedure: 08/08/20 Pre-Operative Diagnosis: Right knee primary osteoarthritis Post-Operative Diagnosis: Right knee primary osteoarthritis Surgery/Procedure Performed:: Right minimally invasive robotic assisted total knee replacement Description of Surgical Findings:: Stable knee with good patella tracking servicenow administrator: Michael Drummond Type of Anesthesia:: Spinal Anesthesiologist: Luiz Cortes Special Medications: 2 g Ancef, 1 g TXA at incision, 1 g TXA closure, 10 mg Decadron, joint cocktail (5 mg Duramorph, 30 mL of 0.5% Ropivicaine, 1000 units of epinephrine, 30 mg of Toradol) Estimated Blood Loss (mL): 30 Fluids Replaced: 1500 mL crystalloid Description of Procedure: Implants used: 1. Lyndon size 3 triathlon cruciate retaining distal femoral press-fit component 2. [place]don size 4 press-fit tritanium tibial baseplate 3. [place] X3 9mm polyethylene 4. [place] X3 32mm asymmetric patella Brief history operative indications: 70-year-old F with history of right knee osteoarthritis with radiographic findings with loss of joint space, osteophyte formation and subchondral sclerosis. Failed conservative measures as mentioned in the H&P. Discussion of total knee arthroplasty as well as risk and benefits were discussed the patient including but not limited to blood loss, DVTs, PEs, neurovascular damage, general risk of anesthesia including loss of life, and stiffness or instability were discussed with patient. Patient demonstrated understanding and was able to sign informed consent. Procedure: On the date of procedure patient's right lower extremity was marked in the preoperative area. The patient was then taken back to the operating room where the patient was placed on the table in the supine position. All bony prominences were identified a well-padded. Anesthesia assumed control of the C-spine and airway and remained controlled throughout the remainder of the procedure. A tourniquet was placed on the right upper thigh and the leg was prepped in a sterile fashion. The surgeon then scrubbed at this time .Upon reentering the room right lower extremity was draped in a standard orthopedic fashion. A timeout was then called and everyone agreed upon the side, the site, the procedure to be performed, patient's identity and antibiotics given. Esmarch bandage was used to exsanguinate the extremity and the tourniquet was placed up to 250 mmHg with the knee in flexion. A midline skin incision was made and sharp dissection was taken down through skin subcutaneous tissue and fat. The standard medial parapatellar incision was made and the patella was subluxed laterally. An Appropriate deep MCL release was done and the fat pad was resected. Our attention was then directed to the patella. The patella was everted and a flat resection was made. The knee was then flexed up in 2 femoral pins were placed inside the incision and 2 tibial pins were placed outside the incision in the medial tibia bicortically. Once this was completed the 2 checkpoints in the femur and tibia were placed. Knee was then flexed up and the bony landmarks were registered. Once this was completed knee was taken through range of motion and manually stressed allowing us to a plan for an appropriate tibial cut. The robotic arm was brought into the field sterilely and checkpoint and saw were registered. Based on the patient's deformity the tibial cut was made 2 degrees varus. At this time the tensioner was then placed in the joint and ligament tension was checked at 90 degrees and full extension. Based on the patient's ligamentous tension appropriate adjustments were made to the operative plan and ligament releases were done. Once we were happy with our operative plan with balanced flexion and extension gaps our attention was directed to the femur. The robot was brought into the field sterilely and registered. Posterior condylar cuts, anterior chamfer cuts and anterior cuts were appropriately made for a size 3 femur. When these were completed the saws were switched out in the distal femoral and posterior chamfer cuts were made. Protecting the soft tissue throughout this time. A size 4 tibial base plate was selected. the knee was flexed to 90 degrees and the soft tissues and posterior osteophytes were removed from the joint. 40 cc of the periarticular injection was injected into the posterior medial corner of the joint. The appropriate trials were then placed on the femur and tibia. A trial polyethylene was trialed to ensure proper balancing and stability of the knee. The appropriate tibial internal rotation was then marked with a bovie. Our attention was then directed to the patella. The lug holes were drilled and the patella trial was placed. Patellar tracking was checked and deemed appropriate. Once we were happy lug holes were drilled for the femur and trial components were removed. the tibia was subluxed and pinned into place and the keel was punched and drilled appropriately. Final components were verified and opened, and cement was mixed in a vacuum. Neuro Kinetics Simplex cement was used. The wound was copiously irrigated with normal saline. When the cement was ready the components were impacted into place starting with the tibia, femur and finally cementing the patella. The trial poly component was placed and the knee was placed in full extension. All excess cement was removed in the process. Once the cement had cured the tracking, alignment and balance were verified and a size 9 mm CS polyethylene component was placed. Once the final components were placed an Irrisept lavage was performed and the wound was copiously irrigated with normal saline solution and the periarticular injection was given. The wound was closed in a layer mera fashion using #1 vicryl interrupted sutures for the arthrotomy, 2-0 interrupted Vicryl suture for the subcuticular layer and martha for final skin closure. A sterile compressive dressing was then placed. The patient was then awakened from anesthesia, transferred to the [facility] and transferred to the PACU for recovery. Post op plan DVT ppx: ASA 81mg BID, thigh high compression stockings Follow up: in office in 2 weeks for wound check PT: to start POD #0 at hospital, outpatient PT should be arranged. My physician cleaner assistant was a vital part of this case. He was important in appropriate retraction during the case, and protection of soft tissues during bony cuts. His intimate knowledge of the case and my steps aided in safe and expedient completion of the procedure as well as appropriate position of the leg during the case. He was also vital in assisting with closure under my direct supervision. Due to the complexity of this case robotic arm was used to assist in the surgery to improve accuracy and clinical outcomes. - Complications No intraoperative complications - Admit VTE Documentation VTE Present on Admission: No VTE Mechan Device Prophylaxis: SCD's, Thigh High SULLY Hose VTE Pharm Prophylaxis ordered?: Yes
[2020-08-08] MEDS: Scopolamine 1mg/72hr Patch 1 PATCH TD (13:07)
[2020-08-08] MEDS: Lactated Ringers 1,000 ML 125 ML IV (13:40)
--- NOTE | 2020-08-08 14:29 | PN_ITS ---
Subjective: Ms Tracy is a 70 yo female with a PMH of OA, Diastolic Dysfunction, AIDA, Melanoma, Basal Cell Carcinoma, SVT, H/O DVT, HTN, and MO who was admitted on 08/08/2020 for an elective R TKA. She had been having pain for over 4 yrs and the pain was constant. It had gotten so severe that she was unable to do many IADL's and she has now failed conservative mgt of steroid injections, PT, Visco injections, bracing and oral medications for pain. She is on Coumadin at baseline for he h/o DVT's and to be bridged with Lovenox. She currently is feeling well. Denies any complaints including pain. Had spinal anesthesia and a nerve block. Vitals/I&O's: Vital Signs Temp Pulse Resp BP Pulse Ox 97.3 F L 78 16 122/63 H 93 08/08/20 14:03 08/08/20 14:03 08/08/20 14:03 08/08/20 14:03 08/08/20 14:03 Oxygen Flow Rate (L/min) 6 Oxygen Delivery Method Room Air Weight: 111.2 kg Body Mass Index (BMI) 42.0 Intake and Output for Last 24 Hours 08/06/20 08/07/20 08/08/20 23:59 23:59 23:59 Intake Total 2341.5 / 2341.5 Balance 2341.5 / 2341.5 General: Alert, Oriented x3, Cooperative, No apparent distress, Well developed, Well nourished, - - Obese WF sitting on BSC, appears comfortable, okay with me examining her and nsg at bedside HEENT: Atraumatic, PERRLA, EOMI, Normocephalic, EAC Clear Oral: No Gingival or Mucosal Lesions/ Ulcerations, Dry Mucosa Neck: Supple, No JVD, Negative Carotid Bruits, No Nodes, Trachea Midline, Thyroid Normal Size and Texture Lungs: Clear to auscultation, No rhonchi, No wheeze, No rales Cardiovascular: Regular rate, Regular Rhythm, Normal S1, Normal S2, No murmurs, No Ectopic Activity, No rub noted, No Gallop Abdomen: Bowel Sounds Present, Soft, Non Tender, Non-Distended, No hernias noted Extremities: No clubbing, No cyanosis, Capillary Refill Less than 3 Seconds, Edema - trace, Peripheral Pulses Normal Skin: No rashes, No breakdown Musculoskeletal: No Muscle Wasting, Arthritic Changes Neurological: Cranial nerves II-XII grossly intact, Neuro grossly intact, Muscle tone normal, Coordination normal Psych/Mental Status: Normal Affect, Appropriate, Alert and oriented to time, place, person, mood and affect Laboratory Results 08/08/20 08:44: POC PT 15.2 H, INR 1.20 08/08/20 09:10: Free T4 1.10 08/08/20 09:37: POC Glucose 79 Current Medications Acetaminophen (Tylenol) 1,000 mg PO Q8H [facility] Calcium/Vitamin D (Os-Bruno 500mg + D) 1 tablet PO DAILY@1200 CED Cholecalciferol (Vitamin D (25mcg)) 2,000 unit PO DAILY [facility] Diltiazem HCl (Cardizem Cd) 120 mg PO DAILY [facility] Enteral Nutritional Formula (Ensure Surgery) 237 ml PO TIDCM [facility] Last Admin: 08/08/20 14:08 Dose: Not Given Documented by: Famotidine (Pepcid) 20 mg PO DAILY [facility] Furosemide (Lasix) 20 mg PO DAILY [facility] Lactated Ringer's () 1,000 mls @ 125 mls/hr IV .Q8H [facility] Stop: 08/08/20 18:29 Last Admin: 08/08/20 13:40 Dose: 125 mls/hr Documented by: Lactated Ringer's () 1,000 mls @ 125 mls/hr IV .Q8H [facility] Cefazolin Sodium () 1 gm in 50 mls @ 150 mls/hr IV Q8H [facility] Stop: 08/09/20 02:49 Sodium Chloride () 250 mls @ 15 mls/hr IV .[id number] PRN PRN Reason: Saline Flush Sodium Chloride () 250 mls @ 15 mls/hr IV .[id number] PRN PRN Reason: Additional IVPB Infusion Insulin Human Lispro (Humalog Kwikpen ([facility])) 1 - 6 unit SC Q4H PRN PRN; Protocol PRN Reason: BG>/= 180, SEE PROTOCOL Ketorolac Tromethamine (Toradol (Bkc)) 15 mg IV Q6H PRN PRN PRN Reason: Pain Score 1-5/10 Magnesium Chloride (Mag64) 128 mg PO DAILY [facility] Morphine Sulfate () 2 - 4 mg IV Q2H PRN PRN PRN Reason: Pain Score 6-10/10 Ondansetron HCl (Zofran) 4 mg IV Q8H PRN PRN PRN Reason: NAUSEA Oxycodone HCl (Oxyir) 5 - 10 mg PO Q4H PRN PRN PRN Reason: Pain Score 4-10/10 Promethazine HCl (Phenergan) 12.5 mg IM Q6H PRN PRN; Protocol PRN Reason: NAUSEA/VOMITING Scopolamine HBr (Transderm-Scop) 1 patch TD Q3D [facility] Stop: 08/08/20 16:01 Last Admin: 08/08/20 13:07 Dose: 1 patch Documented by: Senna/Docusate Sodium (Senokot-S, Ana-Colace) 2 tablet PO BID [facility] Sodium Chloride () 10 - 40 ml IV UD PRN PRN Reason: SALINE FLUSH Warfarin Sodium (Jantoven) 4 mg PO DAILY@1700 [facility] STROKE Vital Signs/Narrative: Vital Signs Temp Pulse Resp BP Pulse Ox 08/08/20 14:03 97.3 F L 78 16 122/63 H 93 08/08/20 13:44 97.1 F L 81 16 121/56 H 98 08/08/20 13:30 97 F L 89 17 126/54 H 100 08/08/20 13:15 96.9 F L 83 17 126/57 H 100 08/08/20 13:00 96.9 F L 86 18 132/48 H 100 08/08/20 12:47 89 18 125/62 H 100 08/08/20 12:40 96.9 F L 93 20 H 131/58 H 99 Medical Necessity - Tobacco Use Smoking Status: Never smoker Tobacco Use: Non-smoker Assessment/Plan POD #0 R TKA -WBAT -pain meds per ortho -bowel regimen -PT/OT -mgt per Ortho H/O DVT L LE -is on chronic coumadin but has been off and bridged with Lovenox -last dose of Lovenox was yesterday am -coumadin is ordered for tomorrow -d/w Dr. Cuba re: starting lovenox and he is fine from a surgical standpoint to start in the am -will start Lovenox 110 BID tomorrow am -would recommend 2 consecutive therapeutic INR's prior to d/c of lovenox HTN -continue Cardizem -continue lasix SVT -no current issues -continue CCB Diastolic Dysfunction -control BP and HR OA -as above H/O Skin Cancer -no currently issues MO -recommend wgt loss DVT prophylaxis -start therapeutic dose lovenox in the am -OAC in am Inpatient E&M: 64947 Subs Hosp L2
[2020-08-08] MEDS: Ensure Surgery 237 ML LIQUID PO (17:30)
[2020-08-08] MEDS: Lactated Ringers 1,000 ML 75 ML IV (17:30)
[2020-08-08] MEDS: Midazolam 2 MG/2 ML Syringe 4 MG IV (17:34)
[2020-08-08] MEDS: fentaNYL 100 MCG/2 ML Ampul IV (17:34)
[2020-08-08] MEDS: Cefazolin 1 GM/50 ML BAG IV (17:38)
--- NOTE | 2020-08-08 21:00 | NURSING ---
Pt's oxygen sats were dropping into the high 80's on room air. When I checked her pulse ox she was 90%. O2 @ 2L provided. Sats currently 92%.
[2020-08-08] MEDS: oxyCODONE 5 MG Tablet PO (21:38)
[2020-08-08] MEDS: Senna/Docusate Sodium 1 Tablet 2 TABLET PO (21:38)
[2020-08-09 02:00] VITALS: BP 132/71; PULSE 73; RESP 16; TEMP 36.5; O2SAT 97
[2020-08-09] MEDS: Cefazolin 1 GM/50 ML BAG IV (02:01)
[2020-08-09 02:03] VITALS: BMI 42.1
[2020-08-09] MEDS: Acetaminophen 500 MG Tablet 1000 MG PO ×2 (02:19→09:44)
[2020-08-09] MEDS: oxyCODONE 5 MG Tablet PO ×3 (05:27→11:22)
[2020-08-09] MEDS: Enoxaparin 120 MG/0.8 ML Syringe 110 MG SC (05:29)
[2020-08-09 05:31] VITALS: BMI 42.1
[2020-08-09 05:45] VITALS: BP 106/75; PULSE 75; RESP 16; TEMP 36.6; O2SAT 96
[2020-08-09 06:18] LABS: Hemoglobin 14.1 g/dL (12.0-15.0); Mean Corp Hgb Conc 33.6 g/dL (32-36); Mean Corpuscular Hgb 31.3 pg (27.0-32.0); Mean Corpuscular Volume 93.1 fL (81-99); Mean Platelet Vol. 9.8 fl (6.2-12.0); Platelet Count 244 K/mm3 (150-450); RBC Distribution Width CV 13.6 % (11.6-14.6); RBC Distribution Width SD 46.8 fl (35.1-43.9); Red Blood Count 4.51 M/mm3 (4.2-5.4); White Blood Count 15.9 K/mm3 (4.4-11.0)
[2020-08-09 06:40] LABS: Anion Gap 5 (5-15); BUN 14 mg/dL (7-18); BUN/Creat Ratio 20.1 RATIO (10-20); Calcium,Total 9.3 mg/dL (8.5-10.1); Chloride 107 mmol/L (98-107); EST Glomerular Filtration Rate 89 mL/min (>60); Est Glom Filt Rate - Afr Amer 107 mL/min (>60); Glucose 139 mg/dL (74-106); Potassium 4.2 mmol/L (3.5-5.1); Sodium Level 140 mmol/L (136-145)
--- NOTE | 2020-08-09 07:43 | PCM.PN.HOSP ---
Reason for Visit: Follow-up on right minimally invasive robotic assisted total knee replacement/history of recurrent left lower extremity DVT, on chronic anticoagulation Subjective: Shunt was seen and examined. Working with therapy. Her pain is fairly controlled. Denied any chest pain or dizziness or shortness of breath. Discussed with orthopedic surgery PA, patient will be discharged today. Recommended continuation of Lovenox and Coumadin bridging. INR today is 1.12. Objective: Physical exam: General: Alert, Oriented x3, Cooperative, No apparent distress, Well developed, Well nourished, morbidly obese HEENT: Atraumatic, PERRLA, EOMI, Normocephalic, EAC Clear Oral: No Gingival or Mucosal Lesions/ Ulcerations, Dry Mucosa Neck: Supple, No JVD, Negative Carotid Bruits, No Nodes, Trachea Midline, Thyroid Normal Size and Texture Lungs: Clear to auscultation, No rhonchi, No wheeze, No rales Cardiovascular: Regular rate, Regular Rhythm, Normal S1, Normal S2, No murmurs, No Ectopic Activity, No rub noted, No Gallop Abdomen: Bowel Sounds Present, Soft, Non Tender, Non-Distended, No hernias noted Extremities: No clubbing, No cyanosis, Capillary Refill Less than 3 Seconds, Edema - trace, Peripheral Pulses Normal Skin: No rashes, No breakdown Musculoskeletal: Dressing over the right anterior knee, slight swelling with old blood Neurological: Cranial nerves II-XII grossly intact, Neuro grossly intact, Muscle tone normal, Coordination normal Psych/Mental Status: Normal Affect, Appropriate, Alert and oriented to time, place, person, mood and affect Vitals/I&O's: Vital Signs Temp Pulse Resp BP Pulse Ox 97.8 F 75 16 106/75 96 08/09/20 05:45 08/09/20 05:45 08/09/20 05:45 08/09/20 05:45 08/09/20 05:45 Oxygen Flow Rate (L/min) 6 Oxygen Delivery Method Room Air Weight: 111.2 kg Body Mass Index (BMI) 42.0 Intake and Output for Last 24 Hours 08/07/20 08/08/20 08/09/20 23:59 23:59 23:59 Intake Total 3391.5 / 3391.5 1468.75 / 1468.75 Output Total 400 / 400 Balance 2991.5 / 2991.5 1468.75 / 1468.75 Laboratory Results 08/08/20 08:44: POC PT 15.2 H, INR 1.20 08/08/20 09:10: Free T4 1.10 08/08/20 09:37: POC Glucose 79 08/09/20 06:05: WBC 15.9 H, RBC 4.51, Hgb 14.1, Hct 42.0, MCV 93.1, MCH 31.3, MCHC 33.6, RDW Std Deviation 46.8 H, RDW Coeff of Gallo 13.6, Plt Count 244, MPV 9.8 08/09/20 06:05: Sodium 140, Potassium 4.2, Chloride 107, Carbon Dioxide 28.0, Anion Gap 5, BUN 14, Creatinine 0.70, Estim Creat Clear Calc 46.50, Est GFR (MDRD) Af Amer 107, Est GFR (MDRD) Non-Af 89, BUN/Creatinine Ratio 20.1 H, Glucose 139 H, Calcium 9.3 Current Medications Acetaminophen (Tylenol) 1,000 mg PO Q8H [facility] Last Admin: 08/09/20 02:19 Dose: 1,000 mg Documented by: Calcium/Vitamin D (Os-Bruno 500mg + D) 1 tablet PO DAILY@1200 [facility] Cholecalciferol (Vitamin D (25mcg)) 2,000 unit PO DAILY [facility] Diltiazem HCl (Cardizem Cd) 120 mg PO DAILY [facility] Enoxaparin Sodium (Lovenox) 110 mg SC Q12@0600,1800 [facility] Last Admin: 08/09/20 05:29 Dose: 110 mg Documented by: Enteral Nutritional Formula (Ensure Surgery) 237 ml PO TIDCM [facility] Last Admin: 08/08/20 17:30 Dose: 237 ml Documented by: Famotidine (Pepcid) 20 mg PO DAILY [facility] Furosemide (Lasix) 20 mg PO DAILY [facility] Last Admin: 08/08/20 17:28 Dose: Not Given Documented by: Sodium Chloride () 250 mls @ 15 mls/hr IV .[id number] PRN PRN Reason: Saline Flush Sodium Chloride () 250 mls @ 15 mls/hr IV .[id number] PRN PRN Reason: Additional IVPB Infusion Insulin Human Lispro (Humalog Michael (Bkc)) 1 - 6 unit SC Q4H PRN PRN; Protocol PRN Reason: BG>/= 180, SEE PROTOCOL Ketorolac Tromethamine (Toradol (Bkc)) 15 mg IV Q6H PRN PRN PRN Reason: Pain Score 1-5/10 Magnesium Chloride (Mag64) 128 mg PO DAILY [facility] Morphine Sulfate () 2 - 4 mg IV Q2H PRN PRN PRN Reason: Pain Score 6-10/10 Ondansetron HCl (Zofran) 4 mg IV Q8H PRN PRN PRN Reason: NAUSEA Oxycodone HCl (Oxyir) 5 - 10 mg PO Q4H PRN PRN PRN Reason: Pain Score 4-10/10 Last Admin: 08/09/20 07:13 Dose: 5 mg Documented by: Promethazine HCl (Phenergan) 12.5 mg IM Q6H PRN PRN; Protocol PRN Reason: NAUSEA/VOMITING Senna/Docusate Sodium (Senokot-S, Ana-Colace) 2 tablet PO BID [facility] Last Admin: 08/08/20 21:38 Dose: 2 tablet Documented by: Sodium Chloride () 10 - 40 ml IV UD PRN PRN Reason: SALINE FLUSH Warfarin Sodium (Jantoven) 4 mg PO DAILY@1700 [facility] STROKE Vital Signs/Narrative: Vital Signs Temp Pulse Resp BP Pulse Ox 08/09/20 05:45 97.8 F 75 16 106/75 96 Medical Necessity - Tobacco Use Smoking Status: Never smoker Tobacco Use: Non-smoker Assessment/Plan 1. Postop day #1 status post right minimally invasive robotic total knee replacement, pain is fairly controlled, Continue on pain regimen, follow-up on orthopedic, PT and OT recommendation 2. History of recurrent left lower extremity DVT, on chronic anticoagulation Restarted on Lovenox yesterday, INR today is 1.2 Patient will need to continue with Lovenox bridging with Coumadin -she states that Dr. Rowan is going to manage her subtherapeutic INR Discussed with orthopedic surgery, patient will need prescription for more Lovenox until she sees Dr. Rowan. Patient has enough warfarin at home -not make any changes to her dose. 3. Hypertension/history of SVT/chronic diastolic CHF, all remain stable in this admission, Continue on Cardizem, Lasix, oral magnesium 4. Morbid obesity, BMI 42.1, lifestyle recommendations recommended 5. DVT prophylaxis on therapeutic Lovenox Inpatient E&M: 99823 Subs Hosp L2
--- NOTE | 2020-08-09 09:31 | PCM.PN.ORT ---
Subjective: The patient was sitting in bedside chair upon examination. Patient denies any chest pain, shortness of breath, dizziness, lightheadedness, nausea or vomiting, or calf pain. Pain is controlled on medications. No adverse overnight events. Patient just finished physical therapy. She does have soreness in the knee but therapy states she did well. Patient is currently on Lovenox and Coumadin. She has history of previous DVTs. She has been managed by her primary care physician Dr. Rowan. Dr. Rowan was covering her perioperatively with Lovenox. She does have prescription for the Lovenox but states it runs out on Thursday. She has not getting there INR checked until Thursday. She needs a prescription for the Lovenox for Thursday. Objective: Vital signs stable and afebrile. Patient is able to plantarflex and dorsiflex actively. Sensation is intact to light touch to saphenous, sural, superficial and deep peroneal, and tibial distribution. Soft dressing with Hola wrap is intact with no breakthrough drainage. Patient has adhesive allergy and was not able to use the Mepilex dressing. Negative Homans bilaterally, negative signs and symptoms of DVT. - Physical Exam Vitals/I&O's: Vital Signs Temp Pulse Resp BP Pulse Ox 97.8 F 75 16 106/75 96 08/09/20 05:45 08/09/20 05:45 08/09/20 05:45 08/09/20 05:45 08/09/20 05:45 Oxygen Flow Rate (L/min) 6 Oxygen Delivery Method Room Air Weight: 111.2 kg Body Mass Index (BMI) 42.0 Intake and Output for Last 24 Hours 08/07/20 08/08/20 08/09/20 23:59 23:59 23:59 Intake Total 3391.5 / 3391.5 1468.75 / 1468.75 Output Total 400 / 400 Balance 2991.5 / 2991.5 1468.75 / 1468.75 General: Alert, Oriented x3, Cooperative, No apparent distress Laboratory Results 08/08/20 09:10: Free T4 1.10 08/08/20 09:37: POC Glucose 79 08/09/20 06:05: WBC 15.9 H, RBC 4.51, Hgb 14.1, Hct 42.0, MCV 93.1, MCH 31.3, MCHC 33.6, RDW Std Deviation 46.8 H, RDW Coeff of Gallo 13.6, Plt Count 244, MPV 9.8 08/09/20 06:05: Sodium 140, Potassium 4.2, Chloride 107, Carbon Dioxide 28.0, Anion Gap 5, BUN 14, Creatinine 0.70, Estim Creat Clear Calc 46.50, Est GFR (MDRD) Af Amer 107, Est GFR (MDRD) Non-Af 89, BUN/Creatinine Ratio 20.1 H, Glucose 139 H, Calcium 9.3 Current Medications Acetaminophen (Tylenol) 1,000 mg PO Q8H [facility] Last Admin: 08/09/20 02:19 Dose: 1,000 mg Documented by: Calcium/Vitamin D (Os-Bruno 500mg + D) 1 tablet PO DAILY@1200 [facility] Cholecalciferol (Vitamin D (25mcg)) 2,000 unit PO DAILY [facility] Diltiazem HCl (Cardizem Cd) 120 mg PO DAILY [facility] Enoxaparin Sodium (Lovenox) 110 mg SC Q12@0600,1800 [facility] Last Admin: 08/09/20 05:29 Dose: 110 mg Documented by: Enteral Nutritional Formula (Ensure Surgery) 237 ml PO TIDCM [facility] Last Admin: 08/08/20 17:30 Dose: 237 ml Documented by: Famotidine (Pepcid) 20 mg PO DAILY [facility] Furosemide (Lasix) 20 mg PO DAILY [facility] Last Admin: 08/08/20 17:28 Dose: Not Given Documented by: Sodium Chloride () 250 mls @ 15 mls/hr IV .[id number] PRN PRN Reason: Saline Flush Sodium Chloride () 250 mls @ 15 mls/hr IV .[id number] PRN PRN Reason: Additional IVPB Infusion Insulin Human Lispro (Humalog Kwikpen ([facility])) 1 - 6 unit SC Q4H PRN PRN; Protocol PRN Reason: BG>/= 180, SEE PROTOCOL Ketorolac Tromethamine (Toradol ([facility])) 15 mg IV Q6H PRN PRN PRN Reason: Pain Score 1-5/10 Magnesium Chloride (Mag64) 128 mg PO DAILY [facility] Morphine Sulfate () 2 - 4 mg IV Q2H PRN PRN PRN Reason: Pain Score 6-10/10 Ondansetron HCl (Zofran) 4 mg IV Q8H PRN PRN PRN Reason: NAUSEA Oxycodone HCl (Oxyir) 5 - 10 mg PO Q4H PRN PRN PRN Reason: Pain Score 4-10/10 Last Admin: 08/09/20 07:13 Dose: 5 mg Documented by: Promethazine HCl (Phenergan) 12.5 mg IM Q6H PRN PRN; Protocol PRN Reason: NAUSEA/VOMITING Senna/Docusate Sodium (Senokot-S, Ana-Colace) 2 tablet PO BID [facility] Last Admin: 08/08/20 21:38 Dose: 2 tablet Documented by: Sodium Chloride () 10 - 40 ml IV UD PRN PRN Reason: SALINE FLUSH Warfarin Sodium (Jantoven) 4 mg PO DAILY@1700 [facility] Medical Necessity - Tobacco Use Smoking Status: Never smoker Tobacco Use: Non-smoker Assessment/Plan 1. S/P right total knee arthroplasty POD #1 2. Continue Pain Medications: Tylenol and oxycodone 3. DVT Prophylaxis: Patient is resuming her Coumadin and is currently being bridged with Lovenox. Patient has enough Lovenox to get through to Thursday and will need additional prescription for Thursday. She follows with her primary care physician on Thursday with INR check. If INR is greater than 2 she will be able to stop her Lovenox. 4. PT/OT: Weightbearing as tolerated 5. H & H: 14.1/42.0, asymptomatic 6. Reactive leukocytosis: Currently 15.9, afebrile. Patient did receive Decadron intraoperatively 7. Continue postoperative medical management per medicine: Case was discussed and plan will be for discharge home today 8. Encouraged Incentive Spirometry 9. Disposition: Orthopedically stable, plan will be for discharge home today. Prescriptions will be E scribed to her primary pharmacy. Patient will follow-up per postop instructions. She does have outpatient physical therapy established. Patient was instructed that she has not to get the dressing wet for the first 5 days. After 5 days she can then remove the dressing and shower with only soap and water. No ointments, salves, Neosporin, or alcohol pads on the incision for 6 weeks. She can continue with ice and elevation for the swelling. I have reviewed the [place] Automated Rx Reporting System (OARRS) report for this patient for refill pattern and other prescriber involvement as part of the appropriate surveillance for the provision of acute and chronic controlled medications. The report was requested and reviewed on the date of this entry and was considered in the prescribing process.
[2020-08-09 09:33] VITALS: BP 140/73; PULSE 67; RESP 18; TEMP 36.6; O2SAT 96
--- NOTE | 2020-08-09 09:40 | DCINST_ITS ---
Discharge Diet: No Restrictions Discharge Activity: May Not Drive May shower in (days): 4 - Okay to shower and get incision wet on August 13, 2020 Ice area for (Minutes): 20 - every hour while awake. Weight Bearing Status: Weight bearing as tolerated Elevate: Operative Extremity Additional Activity Instructions:: Wear elastic stockings for 2 weeks after your surgery. Call your doctor if your incision/area has: Continuous Slow Oozing, Sudden Increased Bleeding, Increased Pain/ Swelling, Increased Redness, Foul Smelling Discharge Call your doctor if you observe: Fever of 101 or Higher, Coldness, Increased Pain, Numbness or Tingling, Change in Color, Calf discomfort, Uncontrolled pain Change Dressing in (Days):: 1 - and daily as needed. Remove Dressing in (days):: 4 - Okay to remove dressing on August 13, 2020 Additional Instructions: Follow orthopedic postop instructions Patient will follow treatment plan that was established by Dr. Rowan with regards to her perioperative DVT prophylaxis with Lovenox and Coumadin Allergies/Adverse Reactions: Allergies adhesive Allergy (Verified 08/08/20 09:22) Rash risedronate sodium [From Actonel] Allergy (Verified 08/08/20 09:22) Swelling SORE JOINTS AND MUSCLES Sulfa (Sulfonamide Antibiotics) Allergy (Verified 08/08/20 09:22) Other DISPOSABLE STITCHES Allergy (Uncoded 08/08/20 09:22) Rash Medications to take at Discharge Diltiazem HCl [Dilt-Xr] 120 mg PO DAILY 03/12/19 Biotin 5 mg PO DAILY 07/25/20 Calcium Carb/Vitamin D3/Vit K1 [Calcium + D Soft Chewable Tab] 1 ea PO DAILY 07/25/20 Cholecalciferol (Vitamin D3) [Vitamin D3] 2,000 unit PO DAILY 07/25/20 Furosemide [Lasix] 20 mg PO DAILY 07/25/20 Magnesium Oxide [Magnesium] 400 mg PO DAILY 07/25/20 Warfarin [Coumadin] 4 mg PO DAILY 07/25/20 Enoxaparin Sodium [Lovenox] 120 mg SQ BID 08/08/20 Acetaminophen [Tylenol] 1,000 mg PO TID #100 tab 08/09/20 Enoxaparin [Lovenox] 110 mg SUBCUT Q12@0600,1800 #2 syringe 08/09/20 Oxycodone [Oxyir] 5 - 10 mg PO Q4H PRN PRN 5 Days #60 tab 08/09/20 Senna/Docusate Sodium [Senokot-S] 2 tab PO BID #10 tab 08/09/20 The following prescriptions were given: Enoxaparin [Lovenox] 110 mg SUBCUT Q12@0600,1800 #2 syringe Transmission Status: Pending to [id number] Oxycodone [Oxyir] 5 - 10 mg PO Q4H PRN PRN 5 Days #60 tab PRN Reason: Pain Score 4-10 Transmission Status: Received by [id number] Senna/Docusate Sodium [Senokot-S] 2 tab PO BID #10 tab Transmission Status: Pending to [id number] Acetaminophen [Tylenol] 1,000 mg PO TID #100 tab Transmission Status: Pending to [id number] Primary Care Physician: Arslan Simon MD [Primary Care Provider] - Test Results: Test results from this visit will be discussed in further detail at your follow- up appointment, if applicable. Please Follow Up With: Physical Therapy When: 08/13/20 @ 10:00 am Please Follow Up With: Jeramy Munoz PA-C When: 08/22/20 @ 9:30 am
[2020-08-09] MEDS: Famotidine 20 MG Tablet PO (09:42)
[2020-08-09] MEDS: 0.9% Saline Lock 10 ML Syringe IV (09:42)
[2020-08-09] MEDS: Senna/Docusate Sodium 1 Tablet 2 TABLET PO (09:42)
[2020-08-09] MEDS: Ensure Surgery 237 ML LIQUID PO (09:42)
[2020-08-09] MEDS: Magnesium Chloride 64 MG Delay Rel.Tablet 128 MG PO (09:42)
[2020-08-09] MEDS: dilTIAZem CD 120 MG Capsule PO (09:43)
[2020-08-09] MEDS: Calcium Carb/Vitamin D 1 TABLET Tablet PO (09:43)
[2020-08-09] MEDS: Ketorolac 15 MG/ML Vial IV (09:43)
--- NOTE | 2020-08-09 10:40 | CASEMGMT ---
JAIMEE ALFORD Face to Face with patient for initial transition planning/care coordination assessment. RN PRASHANTH introduced self and role at [facility]. Patient sitting in chair, alert and oriented. Patient willing to participate in assessment and is able to answer all questions appropriately. Care providers, pharmacy, and demographics verified. Patient wishes to discharge home, and is setup with outpatient therapy at [facility]. Patient states he has no further needs or concerns at this time. CM to follow for discharge planning needs that may arise. PCP: Alfred Specialists: rosa [place]; Nedra, pulmonology Preferred Pharmacy: [facility] Insurance: [employer] Cathie Prescription Benefit: yes Living Will/HPOA: yes, daughter Alejandra Dickens LNOK: Living Arrangements: Patient lives with in a 1 story home with 2 step to enter the home. Patient states she was independent prior to surgery. Transportation: DME/HHC: Patient states she has raised toilet, cane, walker, wheelchair, and Cpap at home. Patient is scheduled for outpatient therapy at [facility] for Thursday. Disposition Plan: Patient to discharge home with outpatient therapy, family support, and follow-up plans in place. Simran CHAVEZ, RN, CM
--- NOTE | 2020-08-09 12:10 | CASEMGMT ---
JAIMEE ALFORD in to completed PARIKH for with patient. RN PRASHANTH explained PARIKH for to patient, patient voiced understanding. PARIKH form signed by patient and original filed on chart. Copy of signed form provided to patient. Patient had no further questions or concerns at this time.
--- NOTE | 2020-08-09 14:29 | PHA.DC.MC ---
Pharmacy Service has performed discharge medication reconciliation and counseling for this patient. The patient was counseled on the following discharge medications and changes in medications for homegoing were reviewed. 1. LOVENOX 2. OXYCODONE 3. SENNA/DOC 4. TYLENOL The Reason for Use, instructions for use, and potential side effects were reviewed for all new medications. The patient's questions regarding all of their medications were answered. The patient was able to verbally demonstrate an understanding of their discharge medications. Home Medications Diltiazem HCl [Dilt-Xr] 120 mg PO DAILY 03/12/19 Biotin 5 mg PO DAILY 07/25/20 Calcium Carb/Vitamin D3/Vit K1 [Calcium + D Soft Chewable Tab] 1 ea PO DAILY 07/25/20 Cholecalciferol (Vitamin D3) [Vitamin D3] 2,000 unit PO DAILY 07/25/20 Furosemide [Lasix] 20 mg PO DAILY 07/25/20 Magnesium Oxide [Magnesium] 400 mg PO DAILY 07/25/20 Warfarin [Coumadin] 4 mg PO DAILY 07/25/20 Enoxaparin Sodium [Lovenox] 120 mg SQ BID 08/08/20 Acetaminophen [Tylenol] 1,000 mg PO TID #100 tab 08/09/20 Enoxaparin [Lovenox] 110 mg SUBCUT Q12@0600,1800 #2 syringe 08/09/20 Oxycodone [Oxyir] 5 - 10 mg PO Q4H PRN PRN 5 Days #60 tab 08/09/20 Senna/Docusate Sodium [Senokot-S] 2 tab PO BID #10 tab 08/09/20 The patient's discharge medication list was reviewed for discrepancies and discrepancies were resolved.
== END 2020-08-09 14:05 | disposition home or self-care (01) ==
LOC: SDC 09:53 → MS3 09:53
PROVIDERS: Anesthesiology; Admitting Provider Specialist; PCP Family Medicine; Referring Provider Specialist; Visit Provider Internal Medicine
PROC: 0SRC0JZ Replacement of Right Knee Joint with Synthetic Substitute, Open Approach (ICD-10-PCS; CPT 27447; principal; 2020-08-08 10:00)
DX: M17.11 Unilateral primary osteoarthritis, right knee (principal); Z11.59 Encounter for screening for other viral diseases; G47.33 Obstructive sleep apnea (adult) (pediatric); I11.0 Hypertensive heart disease with heart failure; E66.01 Morbid (severe) obesity due to excess calories; I47.1 Supraventricular tachycardia; Z79.01 Long term (current) use of anticoagulants; Z86.718 Personal history of other venous thrombosis and embolism; Z79.899 Other long term (current) drug therapy; Z68.41 Body mass index [BMI] 40.0-44.9, adult
CPT/HCPCS: 01400; 27447; 64448; S2900; 36415; 36416; 73560; 80048; 82962; 83735; 84439; 85027; 85610; 87081; 87635; 96361; 96365; 96366; 96375; 97110; 97116; 97162; 97166; 97530; 99218; 99251; C1776; C9803; J7120; A4216; G0378; G0463; J2405; U0003

== ENCOUNTER → 2020-08-13 11:10 | Outpatient (CLI) | payer MEDICARE, BC, SELFPAY ==
[2020-08-08 14:03] VITALS: BMI 42.0
--- NOTE | 2020-08-13 11:14 | VDLE_ITS ---
Reason For Study: Pain right leg RIGHT GSV is normal. CFV is compressible, spontaneous, phasic, competent and demonstrates normal augmentation. FV is compressible, spontaneous, phasic, competent and demonstrates normal augmentation. POP V is compressible, spontaneous, phasic, competent and demonstrates normal augmentation. T/P Trunk is compressible. PTV is compressible. RT PerV is compressible. Procedure Exam performed in department. A preliminary report was called and/or faxed to Tammy. Interpretation Summary Deep veins of the right lower extremity are patent and compressible segmentally. There is no evidence of right lower extremity deep vein thrombosis. Valvular competence appears intact within the proximal deep venous system on the right . The right great saphenous vein appears patent and compressible segmentally. Ordering Physician: Jeramy Munoz Referring Physician: Pedro Simon MD Performed By: Simran Rosario RVT
== END ==
PROVIDERS: PCP Family Medicine; Referring Provider Physician Assistant Surgical; Visit Provider Physician Assistant Surgical
DX: M79.662 Pain in left lower leg (principal)
CPT/HCPCS: 93971

== ENCOUNTER → 2020-11-01 13:49 | Outpatient (CLI) | payer MEDICARE, BC, SELFPAY ==
[2020-08-08 14:03] VITALS: BMI 42.0
[2020-11-01 15:40] LABS: Absolute Lymphocyte Count 1.74 X10^3/uL (0.83-4.51); Basophil# 0.08 X10^3/uL; Basophil% 0.9 % (0-1); Eosinophil# 0.31 X10^3/uL; Eosinophils% 3.5 % (0-5); Hematocrit 46.4 % (37-47); Hemoglobin 14.7 g/dL (12.0-15.0); Lymphocyte # 1.74 X10^3/ul (4.0); Lymphocyte % 19.4 % (19-41); Mean Corp Hgb Conc 31.7 g/dL (32-36); Mean Corpuscular Hgb 29.1 pg (27.0-32.0); Mean Corpuscular Volume 91.9 fL (81-99); Mean Platelet Vol. 9.6 fl (6.2-12.0); Monocyte# 0.78 X10^3/uL; Monocyte% 8.7 % (0-10); NRBC Flagged by Analyzer 0 % (0-5); Neutrophil # 6.04 X10^3/uL (2.7-7.7); Neutrophil % 67.2 % (47-70); Platelet Count 311 K/mm3 (150-450); RBC Distribution Width CV 13.8 % (11.6-14.6); RBC Distribution Width SD 47.4 fl (35.1-43.9); Red Blood Count 5.05 M/mm3 (4.2-5.4)
[2020-11-01 15:59] LABS: Erythrocyte Sedimentation Rate 15 mm/hr (0-30)
== END ==
PROVIDERS: PCP Family Medicine; Referring Provider Specialist; Visit Provider Specialist
DX: Z96.651 Presence of right artificial knee joint (principal)
CPT/HCPCS: 36415; 85025; 85652; 86140

== ENCOUNTER → 2020-11-05 09:55 | Outpatient (CLI) | payer MEDICARE, BC, SELFPAY ==
[2020-08-08 14:03] VITALS: BMI 42.0
[2020-11-05 12:06] LABS: Synovial Fld Mononuclear WBC % 40.4 %; Synovial Fld Polynuclear WBC # 0.087 10^3/uL; Synovial Fld Polynuclear WBC % 59.6 %
[2020-11-05 12:12] LABS: AUTO B FLUID DILUENT BKGD CT WBC <0.1 RBC <0.01 (W<.1,R<.01); Appearance /Synovial Fluid Turbid (CLEAR); Color / Synovial Fluid Red (Pale Yellow)
[2020-11-05 12:24] LABS: Lymph 26 %; Monocyte /Synovial Fluid 4 %; Neutrophil 70 % (0-25)
[2020-11-06 12:55] LABS: Pathologist Comment Reviewed
== END ==
PROVIDERS: PCP Family Medicine; Referring Provider Specialist; Visit Provider Specialist
DX: Z96.651 Presence of right artificial knee joint (principal)
CPT/HCPCS: 87015; 87070; 87075; 87101; 87116; 87205; 87206; 89050; 89051

== ENCOUNTER → 2020-11-28 15:56 | Outpatient (CLI) | payer MEDICARE, BC, SELFPAY ==
[2020-08-08 14:03] VITALS: BMI 42.0
== END ==
PROVIDERS: PCP Family Medicine; Referring Provider Family Medicine; Visit Provider Family Medicine
DX: Z20.822 Contact with and (suspected) exposure to COVID-19 (principal)
CPT/HCPCS: 87635; U0005; U0003

== ENCOUNTER → 2020-12-19 08:30 | Outpatient (CLI) | payer MEDICARE, BC, SELFPAY ==
[2020-08-08 14:03] VITALS: BMI 42.0
[2020-12-19 11:23] LABS: T4 Free Direct 1.03 ng/dL (0.76-1.46); Thyroid Stim Hormone (TSH) 4.66 uIU/mL (0.358-3.74)
== END ==
PROVIDERS: PCP Family Medicine; Referring Provider Family Medicine; Visit Provider Family Medicine
DX: R79.89 Other specified abnormal findings of blood chemistry (principal); R53.81 Other malaise
CPT/HCPCS: 36415; 84439; 84443

== ENCOUNTER → 2021-02-28 10:20 | Outpatient (CLI) | payer MEDICARE, BC, SELFPAY ==
[2020-08-08 14:03] VITALS: BMI 42.0
[2021-02-28 12:41] LABS: T4 Free Direct 1.15 ng/dL (0.76-1.46)
== END ==
PROVIDERS: PCP Family Medicine; Referring Provider Family Medicine; Visit Provider Family Medicine
DX: I10 Essential (primary) hypertension (principal); R79.89 Other specified abnormal findings of blood chemistry
CPT/HCPCS: 36415; 84439; 84443

== ENCOUNTER → 2021-08-13 09:28 | Outpatient (CLI) | payer MEDICARE, BC, SELFPAY ==
[2021-08-13 12:44] LABS: Anion Gap 6 (5-15); BUN 17 mg/dL (7-18); BUN/Creat Ratio 26.8 RATIO (10-20); Calcium,Total 8.8 mg/dL (8.5-10.1); Chloride 106 mmol/L (98-107); Cholesterol 164 mg/dL (200); Creatinine, Serum 0.64 mg/dL (0.55-1.02); EST Glomerular Filtration Rate 99 mL/min (>60); Est Glom Filt Rate - Afr Amer 119 mL/min (>60); Glucose 94 mg/dL (74-106); High Density Lipoprotein 52 mg/dL; Sodium Level 138 mmol/L (136-145); Thyroid Stim Hormone (TSH) 1.48 uIU/mL (0.358-3.74); Triglycerides 104 mg/dL; Very Low Density Lipoprotein 21 mg/dL (5-40)
== END ==
PROVIDERS: PCP Family Medicine; Referring Provider Family Medicine; Visit Provider Family Medicine
DX: I10 Essential (primary) hypertension (principal); E03.9 Hypothyroidism, unspecified
CPT/HCPCS: 36415; 80048; 80061; 84443

== ENCOUNTER 2022-01-08 14:02 | Outpatient (CLI) | payer MEDICARE, BC, SELFPAY ==
[2022-01-08 19:03] LABS: ALB/GLOB Ratio 0.9 RATIO (0.9-2.4); AST(SGOT) 19 U/L (15-37); Alanine Aminotransfer ALT/SGPT 33 U/L (13-56); Albumin, Serum 3.3 g/dL (3.2-5.0); Alkaline Phosphatase 90 U/L (45-117); Anion Gap 8 (5-15); BUN 16 mg/dL (7-18); BUN/Creat Ratio 20.5 RATIO (10-20); Calcium,Total 8.6 mg/dL (8.5-10.1); Chloride 105 mmol/L (98-107); Creatinine, Serum 0.78 mg/dL (0.55-1.02); EST Glomerular Filtration Rate 78 mL/min (>60); Est Glom Filt Rate - Afr Amer 94 mL/min (>60); Free T3 2.6 pg/mL (2.18-3.98); Globulin 3.6 g/dL (2.2-4.2); Glucose 110 mg/dL (74-106); Potassium 3.5 mmol/L (3.5-5.1); Protein, Total 6.9 g/dL (6.4-8.2); Sodium Level 139 mmol/L (136-145); T4 Free Direct 1.06 ng/dL (0.76-1.46); Thyroid Stim Hormone (TSH) 1.85 uIU/mL (0.358-3.74)
== END 2022-01-08 23:59 | disposition home or self-care (01) ==
LOC: MFPLAB 14:08
PROVIDERS: PCP Family Medicine; Referring Provider Family Medicine; Visit Provider Family Medicine
DX: R53.83 Other fatigue (principal); I10 Essential (primary) hypertension; E03.9 Hypothyroidism, unspecified
CPT/HCPCS: 36415; 80053; 82533; 84439; 84443; 84481

== ENCOUNTER 2022-03-10 08:45 | Outpatient (CLI) | payer MEDICARE, BC, SELFPAY ==
[2022-03-10 12:41] LABS: T4 Free Direct 1.18 ng/dL (0.76-1.46); Thyroid Stim Hormone (TSH) 1.48 uIU/mL (0.358-3.74)
== END 2022-03-10 23:59 | disposition home or self-care (01) ==
LOC: MFPLAB 08:47
PROVIDERS: PCP Family Medicine; Visit Provider Family Medicine
DX: E03.9 Hypothyroidism, unspecified (principal)
CPT/HCPCS: 36415; 84439; 84443

== ENCOUNTER 2022-03-14 14:57 | Observation (INO) | payer MEDICARE, BC, SELFPAY ==
[2022-03-14] VITALS (9 sets, daily range): BP systolic 125–153; BP diastolic 77–101; PULSE 72–142; RESP 15–19; TEMP 36.3–36.7; O2SAT 93–97; BMI 43.2; BMI 42.3
--- NOTE | 2022-03-14 15:35 | EKG12_ITS ---
Test Reason : CHEST PAIN Blood Pressure : / mmHG Vent. Rate : 126 BPM Atrial Rate : 126 BPM P-R Int : 160 ms QRS Dur : 108 ms QT Int : 296 ms P-R-T Axes : 016 -54 067 degrees QTc Int : 428 ms Atrial fibrillation Left anterior fascicular block Left ventricular hypertrophy with repolarization abnormality Abnormal ECG Confirmed by HU SNOWDEN, TAMARA ([id number]), slot editor SPENSER HUNTER ([id number]) on 03/18/2022 9:06:22 AM Referred By: ADELA Confirmed By:TAMARA LUI MD
--- NOTE | 2022-03-14 15:38 | EDS_ITS ---
HPI History of Present Illness Chief Complaint: Chest Pain Informant: patient Onset/Context/Timing Onset: Today Activity at onset: gradual Timing: Continuous Quality: Positive for Dull, Pressure and Tightness Location: Substernal and Left Chest Worsened By: Nothing Relieved By: Nothing Associated Symptoms: Positive for Dyspnea, Lightheadedness and Palpitations; Negative for Nausea, Vomiting, Diaphoresis, Cough, Fever and Acid Reflux Narrative Narrative: Patient presents with chest pain and shortness of breath that began today. Patient states that it began this morning when she woke up. Patient states she took a nap and then woke up around 1330 and her pain was still there. Patient states it is gradually getting worse. Patient describes it as tightness and dull. Patient also states it feels like there is a pressure in her neck. Patient states nothing makes it better nothing makes it worse. Patient admits to some shortness of breath and lightheadedness with this. Patient also feels like her heart is racing. Patient denies any nausea or vomiting. Patient denies any diaphoresis. Patient denies any cough or fever. CVD Risk Factors: Negative for Hypertension, Diabetes, Hypercholesterolemia, Family History 1' </=55 and Smoking PE Risk Factors: Positive for Prior DVT or PE and Cancer; Negative for Recent Travel/Surgery and OCP + Smoking + >/=35 PFSH [facility] Medical History (Updated 03/14/22 @ 17:[address] Abrahan Mcdermott, ) Diastolic dysfunction H/O Mohs micrographic surgery for skin cancer SVT (supraventricular tachycardia) Home Medications diltiazem HCl [DILT-XR] 120 mg PO DAILY 03/12/19 [History Last Taken 08/08/20] biotin 5 mg PO DAILY 07/25/20 [History Last Taken Unknown] cholecalciferol (vitamin D3) 2,000 unit PO DAILY 07/25/20 [History Last Taken Unknown] furosemide 20 mg PO DAILY 07/25/20 [History Last Taken Unknown] magnesium oxide 250 mg PO DAILY 07/25/20 [History Last Taken Unknown] warfarin 4 mg PO DAILY 07/25/20 [History Last Taken 08/02/20] levothyroxine [Euthyrox] 75 mcg PO DAILY 03/14/22 [History Last Taken Unknown] Allergy/AdvReac Type Severity Reaction Status Date / Time adhesive Allergy Rash Verified 09/16/20 09:22 risedronate sodium Allergy Swelling Verified 08/08/20 09:22 [From Actonel] Sulfa (Sulfonamide Allergy Other Verified 08/08/20 09:22 Antibiotics) DISPOSABLE STITCHES Allergy Rash Uncoded 08/08/20 09:22 Family History other Surgical History (Updated 03/14/22 @ 17:38 by Johana Schuster NP, SHELLFISH MEAT SEPARATOR OPERATOR-C) History of arthroplasty of left shoulder History of right knee joint replacement Hx of tubal ligation S/P lumbar microdiscectomy S/P tonsillectomy Social History (Updated 03/14/22 @ 17:39 by Johana Schuster NP, SHELL[employer] MEAT SEPARATOR OPERATOR-C) household members: spouse Smoking Status: Never smoker alcohol intake: never substance use type: does not use ROS ROS ED Constitutional Constitutional ED: Denies chills or fever(s) Eyes Eyes: Denies blurry vision or change in vision ENT ENT ED: Denies rhinorrhea or sore throat Cardiovascular Cardiovascular: Reports as per HPI, chest pain, palpitations and racing heartbeat Respiratory/Chest Respiratory/Chest: Reports dyspnea; Denies cough Gastrointestinal Gastrointestinal: Denies abdominal pain, nausea or vomiting Genitourinary Genitourinary ED: Denies dysuria or hematuria Musculoskeletal Musculoskeletal: Reports back pain and neck pain Integumentary Denies abscess or rash Neurologic Neurologic: Reports headache(s); Denies weakness Allergic/Immunologic Allergic/Immunologic ED: Denies mouth swelling or urticaria EXAM Physical Exam Const Vital Signs: 03/14/22 14:59 03/14/22 15:22 03/14/22 15:41 Temperature 97.6 F L Temperature Source Oral Pulse Rate 142 H 80 Respiratory Rate 16 Respiratory Pattern Normal Blood Pressure 153/77 H 142/85 H Blood Pressure Mean 102 104 Pulse Ox 97 97 Oxygen Delivery Method Room Air Room Air 03/14/22 15:53 03/14/22 16:34 03/14/22 17:00 Temperature 97.8 F Temperature Source Temporal Pulse Rate 76 74 Respiratory Rate 18 18 Respiratory Pattern Blood Pressure 134/80 H 125/101 H Blood Pressure Mean 98 109 Pulse Ox 93 96 Oxygen Delivery Method Room Air Room Air Room Air Positive well nourished, well developed and obese General Appearance ED: well developed and NAD Nutritional Appearance: obese HEENT normocephalic and atraumatic Eyes PERRL and EOMs intact bilaterally Neck supple and no JVD Chest Wall palpation of chest normal Resp normal respiratory effort and clear to auscultation bilaterally Effort and Inspection: Negative for respiratory distress Cardio Rate: tachycardic Rhythm: abnormal rhythm irregularly irregular GI normal to inspection, nondistended, normoactive bowel sounds, soft to palpation, non-tender and non-distended Extremity normal to inspection General Extremety ED: Negative for edema or tenderness General Extremity: Negative for edema Neuro oriented x3, CN's II-XII intact bilaterally and no sensory deficits noted Sensorium / Orientation: awake and alert Motor Exam: strength 5/5 throughout Psych mental status grossly normal Heart Score History: Moderately Suspicious ECG: Normal Age: >/= 65 years Risk Factors: No Risk Factors Troponin: </= Normal Limit Score: 3 MDM MDM MDM Narrative Medical decision making narrative: Patient was given aspirin here. EKG was obtained. On my interpretation it shows atrial fibrillation with a rate of 126. QRS interval and QTc intervals were normal. There is left axis deviation at - 54. There are no prior EKGs available for comparison. CBC shows hemoglobin of 17.1 and hematocrit of 51.4. Platelets were normal. PT was 22.9 and INR was 2.1. PTT was 43.5. D-dimer was normal. Basic metabolic profile was essentially within normal limits. High-sensitivity troponin was 3. Portable 1 view chest x-ray was obtained. On my interpretation, lung ho are clear. There is normal cardiac silhouette. Bony thorax is normal. There is no acute process noted. Radiologist also interpreted the x-ray and agrees. Patient was initially ordered a Cardizem bolus. However, prior to receiving the Cardizem her rhythm returned to a normal sinus rhythm. Patient denies any symptoms on reevaluation. Case was discussed with the hospitalist. He will admit the patient for observation. Patient understood and was agreeable with the plan. All questions were answered. Lab Data Attestation: I reviewed the patient's lab results. Labs: Laboratory Results - last 24 hr 03/14/22 03/14/22 03/14/22 15:05 15:05 15:05 WBC 9.0 RBC 5.60 H Hgb 17.1 H Hct 51.4 H MCV 91.8 MCH 30.5 MCHC 33.3 RDW Std Deviation 46.1 H RDW Coeff of Gallo 13.5 Plt Count 275 MPV 10.0 Immature Gran % (Auto) 0.600 Neut % (Auto) 62.5 Lymph % (Auto) 23.4 Major % (Auto) 9.7 Eos % (Auto) 3.0 Baso % (Auto) 0.8 Absolute Neuts (auto) 5.6 Absolute Lymphs (auto) 2.10 Nucleated RBC % 0 Differential Comment SCANNED PT 22.9 H INR 2.1 APTT 43.5 H D-Dimer Quant (PE/DVT) < 0.27 L Sodium 141 Potassium 3.4 L Chloride 109 H Carbon Dioxide 27.0 Anion Gap 5 BUN 18 Creatinine 0.77 Estim Creat Clear Calc 45.20 Est GFR (MDRD) Af Amer 96 Est GFR (MDRD) Non-Af 79 BUN/Creatinine Ratio 23.5 H Glucose 121 H Calcium 9.7 Troponin I High Sens 03/14/22 15:05 WBC RBC Hgb Hct MCV MCH MCHC RDW Std Deviation RDW Coeff of Gallo Plt Count MPV Immature Gran % (Auto) Neut % (Auto) Lymph % (Auto) Major % (Auto) Eos % (Auto) Baso % (Auto) Absolute Neuts (auto) Absolute Lymphs (auto) Nucleated RBC % Differential Comment PT INR APTT D-Dimer Quant (PE/DVT) Sodium Potassium Chloride Carbon Dioxide Anion Gap BUN Creatinine Estim Creat Clear Calc Est GFR (MDRD) Af Amer Est GFR (MDRD) Non-Af BUN/Creatinine Ratio Glucose Calcium Troponin I High Sens 3 Radiography Chest X-Ray - ED: 1 View, Read by ED Physician, Read by Radiologist and No Acute Disease Diagnostic Testing: Clinical Impression(s) from Imaging Studies Chest X-Ray 03/14/22 16:02 IMPRESSION: There are no acute findings. Electronically Signed: Wisam Kohler MD at 16:33 EDT Reading Location ID and State: [facility] / [place] , Service support , EKG Initial EKG: Attestation: I personally reviewed and interpreted this EKG as follows: Interpretation: No Acute Injury Pattern and Atrial Fibrillation (126) Prior EKG tracings: not available for review Discharge Plan Triage Chief Complaint: Chest Pain ED Provider: Abrahan Mcdermott Dx/Rx/DC Orders Clinical Impression: Paroxysmal atrial fibrillation, Chest pain Prescriptions: No Action diltiazem HCl [DILT-XR] 120 capsule,ext.rel 24h degradable 120 mg PO DAILY RF: 0 warfarin 4 MG tablet 4 mg PO DAILY RF: 0 furosemide 20 MG tablet 20 mg PO DAILY RF: 0 biotin 5 MG tablet 5 mg PO DAILY RF: 0 cholecalciferol (vitamin D3) 2,000 UNIT capsule 2,000 unit PO DAILY RF: 0 magnesium oxide 400 MG tablet 250 mg PO DAILY RF: 0 levothyroxine [Euthyrox] 75 mcg tablet 75 mcg PO DAILY RF: 0 Primary Care Provider: Arslan Simon Referrals: Arslan Simon MD [Primary Care Provider] - Disposition Disposition: Acute Care Hospital [facility]
--- NOTE | 2022-03-14 16:02 | RAD_ITS ---
STUDY: XR Chest 1 View 03/14/2022 3:59 PM REASON FOR EXAM: Female, 72 years old. pt states SOB starting this morning. Chest pain radiating to shoulders. chest pain COMPARISON: 09/20/2019 TECHNIQUE: XR Chest 1 View FINDINGS: There is no demonstrated pleural abnormality. Normal heart size. Normal mediastinum. Normal ivon. Prominent appearing increased interstitial lung markings. Normal visualized pulmonary arteries. There is atherosclerotic calcification of the aortic arch with tortuosity. There are diffuse degenerative changes of the visualized thoracic spine. There is degenerative osteoarthritis of the bilateral shoulders. There is no demonstrated abnormality of the visualized soft tissue structures of the upper abdomen. RAD/Chest 1 View (Portable) IMPRESSION: There are no acute findings. Electronically Signed: Wisam Kohler MD at 16:33 EDT ,
[2022-03-14] MEDS: Aspirin 81 MG TAB.CHEW 324 MG PO (16:04)
[2022-03-14 16:06] LABS: Absolute Neutrophil Count 5.6 X10^3/uL (2.0-7.7); Basophil# 0.07 X10^3/uL; Basophil% 0.8 % (0-1); Differential Comment SCANNED; Eosinophil# 0.27 X10^3/uL; Hematocrit 51.4 % (37-47); Hemoglobin 17.1 g/dL (12.0-15.0); Lymphocyte % 23.4 % (19-41); Mean Corp Hgb Conc 33.3 g/dL (32-36); Mean Corpuscular Hgb 30.5 pg (27.0-32.0); Mean Corpuscular Volume 91.8 fL (81-99); Monocyte# 0.87 X10^3/uL; Monocyte% 9.7 % (0-10); NRBC Flagged by Analyzer 0 % (0-5); Neutrophil # 5.61 X10^3/uL (2.7-7.7); Neutrophil % 62.5 % (47-70); Platelet Count 275 K/mm3 (150-450); RBC Distribution Width CV 13.5 % (11.6-14.6); RBC Distribution Width SD 46.1 fl (35.1-43.9)
[2022-03-14 16:19] LABS: Anion Gap 5 (5-15); BUN 18 mg/dL (7-18); BUN/Creat Ratio 23.5 RATIO (10-20); Calcium,Total 9.7 mg/dL (8.5-10.1); Chloride 109 mmol/L (98-107); Creatinine, Serum 0.77 mg/dL (0.55-1.02); EST Glomerular Filtration Rate 79 mL/min (>60); Est Glom Filt Rate - Afr Amer 96 mL/min (>60); Glucose 121 mg/dL (74-106); Potassium 3.4 mmol/L (3.5-5.1); Sodium Level 141 mmol/L (136-145)
[2022-03-14 16:28] LABS: Troponin-I HS (w/2H Reflex) 3 pg/mL (3.0-54.0)
[2022-03-14 17:06] LABS: International Normalized Ratio 2.1; Prothrombin Time (Protime)PT. 22.9 SECONDS (11.7-14.9)
[2022-03-14 17:07] LABS: Partial Thromboplast Time 43.5 Seconds (24.1-36.2)
[2022-03-14 17:17] LABS: D-Dimer Quantitative (DVT/PE) < 0.27 FEU/ug/m (0.27-0.49)
--- NOTE | 2022-03-14 17:33 | PCM.HP.STD ---
Documented by User: Johana Schuster NP, MEDICAL AUTHORIZATION SPECIALIST-C 03/14/22 17:48 HPI - General HPI Narrative PARVIZ FARNSWORTH, is a 72 F who presents to the emergency room due to chest pain with shortness of breath and palpitations. Patient states this began this afternoon while she was laying down taking a nap. She states chest pain radiated to back across to her shoulder blades and she describes heart pounding and shortness of breath. She states her symptoms lasted about an hour. She states she has had shorter episodes of the symptoms in the past. Her symptoms have since resolved. She states she was diagnosed with SVT in the past and is on Cardizem. She denies history of A. fib. Denies known underlying heart disease. 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 [facility] Medical History (Updated 03/14/22 @ 17:[address] Abrahan Mcdermott, DO) Diastolic dysfunction H/O Mohs micrographic surgery for skin cancer SVT (supraventricular tachycardia) Home Medications diltiazem HCl [DILT-XR] 120 mg PO DAILY 03/12/19 [History Last Taken 03/14/22] biotin 5 mg PO DAILY 07/25/20 [History Last Taken 03/14/22] cholecalciferol (vitamin D3) 2,000 unit PO DAILY 07/25/20 [History Last Taken 03/14/22] furosemide 20 mg PO DAILY 07/25/20 [History Last Taken 03/14/22] magnesium oxide 250 mg PO DAILY 07/25/20 [History Last Taken 03/14/22] warfarin 4 mg PO DAILY 07/25/20 [History Last Taken 03/14/22] levothyroxine [Euthyrox] 75 mcg PO DAILY 03/14/22 [History Last Taken 03/14/22] Allergy/AdvReac Type Severity Reaction Status Date / Time adhesive Allergy Rash Verified 08/08/20 09:22 risedronate sodium Allergy Swelling Verified 08/08/20 09:22 [From Actonel] Sulfa (Sulfonamide Allergy Other Verified 08/08/20 09:22 Antibiotics) DISPOSABLE STITCHES Allergy Rash Uncoded 08/08/20 09:22 Family History other other (Denies maternal and paternal cardiac history.) Surgical History (Updated 03/14/22 @ 17:38 by Johana Schuster MEDICAL AUTHORIZATION SPECIALIST, MEDICAL AUTHORIZATION SPECIALIST-C) History of arthroplasty of left shoulder History of right knee joint replacement Hx of tubal ligation S/P lumbar microdiscectomy S/P tonsillectomy Social History (Updated 03/14/22 @ 17:39 by Johana Schuster NP, MEDICAL AUTHORIZATION SPECIALIST-C) household members: spouse Smoking Status: Never smoker alcohol intake: never substance use type: does not use ROS Constitutional Constitutional: Denies change in weight, chills, fatigue, fever(s) or weakness Cardiovascular Cardiovascular: Reports chest pain and palpitations; Denies edema, lightheadedness or syncope Respiratory/Chest Respiratory/Chest: Reports shortness of breath at rest; Denies cough, productive cough or wheezing Gastrointestinal Gastrointestinal: Denies abdominal pain, constipation, diarrhea, nausea or vomiting Genitourinary Genitourinary: Denies burning urination, difficulty urinating, dysuria, hematuria, urinary frequency, urinary incontinence or urinary urgency Musculoskeletal Musculoskeletal: Denies back pain, joint pain or muscle weakness Integumentary Integumentary: Denies erythema, lesions, rash or wounds Neurologic Neurologic: Denies abnormal speech, confusion, dizziness, focal weakness, numbness, paresthesias, seizure-like activity or syncope Psychiatric Psychiatric: Denies anxiety or depression Hematologic/Lymphatic Hematologic/Lymphatic: Denies anemia, easy bleeding or easy bruising Allergic/Immunologic Allergic/Immunologic: Denies hives or asthma Vital Signs Vital Signs Vital Signs: 03/14/22 14:59 03/14/22 15:22 03/14/22 15:41 Temperature 97.6 F L Temperature Source Oral Pulse Rate 142 H 80 Respiratory Rate 16 Respiratory Pattern Normal Blood Pressure 153/77 H 142/85 H Blood Pressure Mean 102 104 Pulse Ox 97 97 Oxygen Delivery Method Room Air Room Air 03/14/22 15:53 03/14/22 16:34 Temperature Temperature Source Pulse Rate 76 Respiratory Rate 18 Respiratory Pattern Blood Pressure 134/80 H Blood Pressure Mean 98 Pulse Ox 93 Oxygen Delivery Method Room Air Room Air Weight Weight: 251 lb 8.759 oz Body Mass Index (BMI) 43.2 Physical Exam Const alert, oriented x3 and no apparent distress Orientation / Consciousness: awake, oriented to person, oriented to place and oriented to time HEENT normocephalic and moist oral mucous membranes Eyes PERRL, EOMs intact bilaterally and conjunctivae normal Neck no lymphadenopathy Resp normal respiratory effort and clear to auscultation bilaterally Cardio regular rate, regular rhythm and no murmurs Cardio Narrative: Upon exam, converted to sinus rhythm Peripheral Pulses: pulses 2+ throughout GI normal to inspection, nondistended, normoactive bowel sounds, non-tender and non-distended Extremity normal to inspection Skin no rashes or lesions noted Lesions: no lesions Rashes: no rashes Trauma: no lacerations or abrasions Neuro CN's II-XII intact bilaterally, no focal motor deficits, no sensory deficits noted and deep tendon reflexes 2+ bilaterally Psych mental status grossly normal and affect normal Results Lab / Micro Data Result Diagrams: 03/14/22 15:05 03/14/22 15:05 Labs: Laboratory Results - last 24 hr 03/14/22 15:05: WBC 9.0, RBC 5.60 H, Hgb 17.1 H, Hct 51.4 H, MCV 91.8, MCH 30.5, MCHC 33.3, RDW Std Deviation 46.1 H, RDW Coeff of Gallo 13.5, Plt Count 275, MPV 10.0, Immature Gran % (Auto) 0.600, Neut % (Auto) 62.5, Lymph % (Auto) 23.4, [place] % (Auto) 9.7, Eos % (Auto) 3.0, Baso % (Auto) 0.8, Absolute Neuts (auto) 5.6, Absolute Lymphs (auto) 2.10, Nucleated RBC % 0, Differential Comment SCANNED 03/14/22 15:05: PT 22.9 H, INR 2.1, APTT 43.5 H, D-Dimer Quant (PE/DVT) < 0.27 L 03/14/22 15:05: Sodium 141, Potassium 3.4 L, Chloride 109 H, Carbon Dioxide 27.0, Anion Gap 5, BUN 18, Creatinine 0.77, Estim Creat Clear Calc 45.20, Est GFR (MDRD) Af Amer 96, Est GFR (MDRD) Non-Af 79, BUN/Creatinine Ratio 23.5 H, Glucose 121 H, Calcium 9.7 03/14/22 15:05: Troponin I High Sens 3 Radiology Impression Chest X-Ray 03/14/22 16:02 IMPRESSION: There are no acute findings. Electronically Signed: Wisam Kohler MD at 16:33 EDT , Assessment & Plan Assessment/Plan (1) Atrial fibrillation: PLAN: 1. New onset atrial fibrillation-converted in ED without intervention. Initial troponin negative. Recent TSH normal. Check mag. On Cardizem for history of SVT and Coumadin for history of DVT. Continue current medications. May need adjustment of Cardizem dosing or addition of metoprolol pending further telemetry monitoring. Plan for stress test and echo in a.m. 2. Chest pain-likely secondary to #1. Stress test in a.m. EKG without acute ST-T changes. 3. Mild hypokalemia-replace per protocol, trend BMP. 4. History of SVT-on Cardizem. Previous 30-day event monitor. 5. 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 6. Hypertension-stable, continue current regimen. 7. Chronic diastolic dysfunction-continue home Lasix regimen. 8. Osteoarthritis-as needed pain regimen. 9. AIDA-continue home CPAP regimen. 10. Hypothyroidism-continue Synthroid regimen. Recent TSH/free T4 normal. 11. History of basal cell carcinoma and melanoma-status post Mohs surgery. DVT prophylaxis-Coumadin This patient was seen by LAVON Wayne under the supervision of Dr. Perez. Time spent examining patient, reviewing data and subsequent management of care: 16 minutes Documented by User: Dr. Jack Perez DO 03/14/22 18:34 [facility] Medical History (Updated 03/14/22 @ 17:[address] Abrahan Mcdermott DO) Diastolic dysfunction H/O Mohs micrographic surgery for skin cancer SVT (supraventricular tachycardia) Home Medications diltiazem HCl [DILT-XR] 120 mg PO DAILY 03/12/19 [History Last Taken 03/14/22] biotin 5 mg PO DAILY 07/25/20 [History Last Taken 03/14/22] cholecalciferol (vitamin D3) 2,000 unit PO DAILY 07/25/20 [History Last Taken 03/14/22] furosemide 20 mg PO DAILY 07/25/20 [History Last Taken 03/14/22] magnesium oxide 250 mg PO DAILY 07/25/20 [History Last Taken 03/14/22] warfarin 4 mg PO DAILY 07/25/20 [History Last Taken 03/14/22] levothyroxine [Euthyrox] 75 mcg PO DAILY 03/14/22 [History Last Taken 03/14/22] Allergy/AdvReac Type Severity Reaction Status Date / Time adhesive Allergy Rash Verified 08/08/20 09:22 risedronate sodium Allergy Swelling Verified 08/08/20 09:22 [From Actonel] Sulfa (Sulfonamide Allergy Other Verified 08/08/20 09:22 Antibiotics) DISPOSABLE STITCHES Allergy Rash Uncoded 08/08/20 09:22 Family History other Surgical History (Updated 03/14/22 @ 17:38 by Johana Schuster MEDICAL AUTHORIZATION SPECIALIST, MEDICAL AUTHORIZATION SPECIALIST-C) History of arthroplasty of left shoulder History of right knee joint replacement Hx of tubal ligation S/P lumbar microdiscectomy S/P tonsillectomy Social History (Updated 03/14/22 @ 17:39 by Johana Schuster MEDICAL AUTHORIZATION SPECIALIST, MEDICAL AUTHORIZATION SPECIALIST-C) household members: spouse Smoking Status: Never smoker alcohol intake: never substance use type: does not use Results Lab / Micro Data Result Diagrams: 03/14/22 15:05 03/14/22 15:05 Charges/Coding Addendum Addendum: Patient was seen and examined today independently of Johana Schuster, she came to the ER today with complaints of chest pain which started approximately 1:30 PM this afternoon when she was lying down for a nap. Patient states that she felt her heart rate was also elevated. Evaluation in the emergency room initially showed that the patient was in atrial fibrillation, before the patient could be given any medication to lower her heart rate, it was noted that the patient's heart rate had declined on its own-subsequent to this-patient converted to normal sinus rhythm. Initial EKG showed atrial fibrillation with no acute injury pattern-rate was 126. Patient states that she has had episodes before where she is felt her heart rate was irregular the last episode was several days ago. Patient has a history of an echocardiogram done in 2019 and a stress test here that was done in 2014. Patient also had an outpatient Holter monitor done in 2016 which showed episodes of SVT and PACs. On examination she appeared in good health and spirits, she does not appear to be in any distress. Vital signs as documented. Skin warm and dry and without overt rashes. Neck without JVD, thyroid appears normal, trachea is midline, neck is supple. Lungs clear, normal air movement was noted. Heart exam notable for regular rhythm, normal sounds and absence of murmurs, rubs or gallops. Abdomen unremarkable and without evidence of organomegaly, masses, or abdominal aortic enlargement, bowel sounds are present in all 4 quadrants, no abdominal tenderness was noted. Extremities nonedematous, no cyanosis was noted, no clubbing was noted. Neuro: Cranial nerves II through XII are grossly intact, no focal motor deficits were noted, sensation to light touch and pinprick is intact, motor exam 5/5 throughout. Psych: Patient is alert and oriented x3, she does not appear anxious or depressed, she does not appear agitated. Labs obtained showed a normal white blood cell count, hemoglobin was 17.1, chemistry profile showed a potassium of 3.4, D-dimer was below 0.27, INR was 2.1, and troponin was 3. Patient's chest x-ray showed no acute findings. Impression: #1 chest pain-etiology unclear, it is possible it was secondary to atrial fibrillation, patient will be placed in observation status on PCU, cardiac enzymes will be cycled, if these remain normal, patient will undergo a treadmill nuclear stress test tomorrow. Patient will also have an echocardiogram performed. Patient will be monitored on telemetry #2 paroxysmal atrial fibrillation-patient is in normal sinus rhythm at this time with a controlled heart rate, she takes time-released Cardizem at home, this will be continued, patient is also on Coumadin due to a past history of multiple VTE's, her INR today was 2.1. Echocardiogram will be performed on the patient tomorrow. #3 use of chronic [id number] will remain on her home Coumadin dosage #4 hypothyroidism-patient is on Synthroid, this will be continued #5 morbid obesity-complicates care, prognosis, and recovery #6 hypokalemia-patient takes furosemide at home, it is probably secondary to this medication, patient will be given oral potassium and BMP will be rechecked tomorrow #7 history of cardiac arrhythmias #8 essential hypertension-patient is currently on diltiazem and furosemide #9 obstructive sleep apnea-patient's will bring in her CPAP machine from home for use in the hospital I have reviewed Johana Schuster's history and physical including her medical assessment and plan of care and with the above additions endorse it. Total clinical time spent by myself addressing the patient's medical issues, reviewing the patient's medical data, and collaborating with the patient's care team: 54 minutes Visit Charges OBSV E&M: [id number] Initial observation care L3
[2022-03-14 18:01] LABS: Reflex Troponin-HS? (from REC) Y
[2022-03-14 18:30] LABS: Troponin-I HS 6 pg/mL (3.0-54.0)
[2022-03-14] MEDS: Potassium Chloride Oral Tablet 20 MEQ PO (19:45)
[2022-03-14 22:06] LABS: Troponin-I HS 8 pg/mL (3.0-54.0)
[2022-03-15 00:47] VITALS: BP 124/71; PULSE 70; RESP 18; TEMP 36.5; O2SAT 95
[2022-03-15 02:59] VITALS: PULSE 61
--- NOTE | 2022-03-15 05:55 | ECHOCS_ITS ---
Reason For Study: A. fib/flutter Procedure This was a 2D Doppler, Color Flow transthoracic echocardiogram. The study was technically difficult. Exam performed in department. Left Ventricle Normal left ventricle. The estimated ejection fraction is 55-60 %. Right Ventricle Normal right ventricle. Normal systolic function. Mitral Valve The mitral valve is structurally normal. No prolapse or stenosis seen. Trivial mitral valve insufficiency. Tricuspid Valve Normal tricuspid valve. Unable to estimate RV systolic pressure due to insufficient tricuspid regurgitant envelope. Aortic Valve Normal aortic valve. No aortic valve insufficiency. Pulmonic Valve The pulmonic valve is not well visualized. Great Vessels Normal aortic root. Pericardium/Pleural No pericardial effusion. Medication Diluted definity 2ml given slow IV push to enhance endocardial definition. MMode/2D Measurements & Calculations LVIDd: 5.4 cm IVSd: 1.3 cm Ao root diam: 3.6 cm LVIDs: 3.5 cm LVPWd: 1.00 cm RVDd: 3.1 cm FS: 35.7 % LAV(MOD-bp): 36.5 ml LVAd ap4: 27.7 cm2 LVAd ap2: 25.6 cm2 LAV(MOD-bp) Indexed: 17.1 ml/m2 LVLd ap4: 7.0 cm LVLd ap2: 6.6 cm LAV(MOD-sp2): 28.1 ml EDV(MOD-sp4): 90.0 ml EDV(MOD-sp2): 81.6 ml LAV(MOD-sp4): 41.6 ml EDV(sp4-el): 93.4 ml EDV(sp2-el): 84.2 ml LVAs ap4: 13.9 cm2 LVAs ap2: 13.4 cm2 LVLs ap4: 5.4 cm LVLs ap2: 5.4 cm ESV(MOD-sp4): 30.0 ml ESV(MOD-sp2): 26.5 ml ESV(sp4-el): 30.2 ml ESV(sp2-el): 28.3 ml EF(MOD-sp4): 66.7 % EF(MOD-sp2): 67.5 % EF(sp4-el): 67.7 % SV(MOD-sp4): 60.0 ml SV(MOD-sp2): 55.1 ml SV(sp4-el): 63.2 ml LA dimension(2D): 3.0 cm LA A4 area: 15.5 cm2 RA A4 area: 11.9 cm2 Doppler Measurements & Calculations MV E max arcenio: 49.7 cm/sec Lat Peak E' Arcenio: 4.8 cm/sec Med Peak E' Arcenio: 3.4 cm/sec MV A max arcenio: 107.4 cm/sec E/E' lat: 10.4 E/E' med: 14.5 MV E/A: 0.46 Ao V2 max: 153.2 cm/sec LV V1 max: 141.2 cm/sec PA V2 max: 97.3 cm/sec Ao max P.4 mmHg LV V1 max P.0 mmHg ECHO/Echo Complete W/ Contrast Interpretation Summary The estimated ejection fraction is 55-60 %. Normal LV systolic function No changes from previous echo 07/2019 Ordering Physician: Jack Perez Referring Physician: Pedro Simon MD Performed By: Shayla Perez RDCS
--- NOTE | 2022-03-15 05:55 | EKG12_ITS ---
Test Reason : AM EKG Blood Pressure : / mmHG Vent. Rate : 063 BPM Atrial Rate : 063 BPM P-R Int : 174 ms QRS Dur : 110 ms QT Int : 432 ms P-R-T Axes : 032 -49 -12 degrees QTc Int : 442 ms Normal sinus rhythm Left anterior fascicular block Septal OH, age undetermined, cannot be excluded Abnormal ECG Confirmed by HU SNOWDEN, TAMARA ([id number]), commercial production editor SPENSER HUNTER ([id number]) on 03/18/2022 11:18:41 AM Referred By: BRENNA Confirmed By:TAMARA LUI MD
[2022-03-15 06:27] VITALS: BP 128/76; PULSE 62; RESP 18; TEMP 36.4; O2SAT 92
[2022-03-15] MEDS: Levothyroxine 75 MCG Tablet PO (06:32)
[2022-03-15] MEDS: 0.9% Saline Lock 10 ML Syringe IV (06:47)
[2022-03-15 06:58] LABS: Anion Gap 7 (5-15); BUN 20 mg/dL (7-18); BUN/Creat Ratio 28.8 RATIO (10-20); Calcium,Total 8.5 mg/dL (8.5-10.1); Chloride 109 mmol/L (98-107); Creatinine, Serum 0.69 mg/dL (0.55-1.02); EST Glomerular Filtration Rate 89 mL/min (>60); Est Glom Filt Rate - Afr Amer 107 mL/min (>60); Glucose 107 mg/dL (74-106); Potassium 3.8 mmol/L (3.5-5.1); Sodium Level 140 mmol/L (136-145)
[2022-03-15 07:05] VITALS: PULSE 68
[2022-03-15 09:56] LABS: Hemoglobin A1c 5.6 % (3.8-5.6)
[2022-03-15 10:57] VITALS: BP 136/87; PULSE 84; RESP 18; TEMP 36.6; O2SAT 92
[2022-03-15] MEDS: Magnesium Chloride 64 MG Delay Rel.Tablet 128 MG PO (11:00)
[2022-03-15] MEDS: dilTIAZem CD 120 MG Capsule PO (11:00)
[2022-03-15] MEDS: Furosemide 20 MG Tablet PO (11:00)
--- NOTE | 2022-03-15 13:02 | PCM.DC ---
Discharge Instructions Diet Discharge Diet: Low fat / Low cholesterol Activity Discharge Activity: Return to Normal Activity Dressing / Incision Call your doctor if you observe: Shortness of breath, Dizziness, Fainting spells, Chest pain and Increased palpitations (irregular heartbeat) Follow Up Care Test Results: Test results from this visit will be discussed in further detail at your follow-up appointment, if applicable. Discharge Plan Admission Admit Date/Time: 03/14/22 17:56 Primary Reason for Your Visit: A.fib, chest pain Attending Provider: Alden Grande Primary Care Provider: Arslan Simon Discharge Orders/Prescriptions Prescriptions: New metoprolol succinate 25 mg tablet extended release 24 hr 25 mg PO DAILY Qty: 30 RF: 0 Continued diltiazem HCl [DILT-XR] 120 capsule,ext.rel 24h degradable 120 mg PO DAILY RF: 0 warfarin 4 MG tablet 4 mg PO DAILY RF: 0 furosemide 20 MG tablet 20 mg PO DAILY RF: 0 biotin 5 MG tablet 5 mg PO DAILY RF: 0 cholecalciferol (vitamin D3) 2,000 UNIT capsule 2,000 unit PO DAILY RF: 0 magnesium oxide 400 MG tablet 250 mg PO DAILY RF: 0 levothyroxine [Euthyrox] 75 mcg tablet 75 mcg PO DAILY RF: 0 Referrals / Follow Up: Arslan Simon MD [Primary Care Provider] - In 1 Week Disposition Disposition (needs filled in before D/C Order can be placed): Home, Self Care
--- NOTE | 2022-03-15 13:06 | DS.PCM_ITS ---
Documented by User: Johana Schuster NP, [employer] 03/15/22 13:40 Providers Date of Admission: 03/14/22 Date of Discharge: 03/15/22 Primary Care Physician: Dr. Arslan Simon MD Reason For Visit: CHEST PAIN Diagnosis Discharge Diagnosis (1) Atrial fibrillation: Status: Deleted Code(s): I48.91 - Unspecified atrial fibrillation Medications at Discharge Home Medications diltiazem HCl [DILT-XR] 120 mg PO DAILY 03/12/19 biotin 5 mg PO DAILY 07/25/20 cholecalciferol (vitamin D3) 2,000 unit PO DAILY 07/25/20 furosemide 20 mg PO DAILY 07/25/20 magnesium oxide 250 mg PO DAILY 07/25/20 warfarin 4 mg PO DAILY 07/25/20 levothyroxine [Euthyrox] 75 mcg PO DAILY 03/14/22 metoprolol succinate 25 mg PO DAILY #30 tab 03/15/22 Hospital Course Operations None Procedures 2-D Echocardiogram and Stress test Summary of Care Provided Hospital Course: Patient is a 72-year-old female admitted 03/14/2022 due to chest pain. 1. New onset atrial fibrillation-converted in ED without intervention. Troponin negative. Recent TSH normal. On Cardizem for history of SVT and Coumadin for history of DVT. Stress test without ischemia. Echocardiogram with EF 55 to 60%. Patient states home Cardizem was increased to 180 mg in the past by PCP and she was unable to tolerate it, she is unsure what exactly happened. She states she has had shorter episodes of palpitations and chest pain prior to this and thinks she may have been in A. fib before presenting episode. Hesitant to increase Cardizem dosing as she reports prior concern with increased dose. Initiated on metoprolol succinate 25 mg daily. Continue home Coumadin regimen. INR therapeutic. Follow-up with PCP in 1 week. 2. Chest pain-likely secondary to #1. Stress test without evidence of ischemia. 3. Mild hypokalemia-replace per protocol, resolved. 4. History of SVT-on Cardizem. Previous 30-day event monitor. 5. 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 6. Hypertension-stable, continue current regimen. 7. Chronic diastolic dysfunction-continue home Lasix regimen. 8. Osteoarthritis-as needed pain regimen. 9. AIDA-continue home CPAP regimen. 10. Hypothyroidism-continue Synthroid regimen. Recent TSH/free T4 normal. 11. History of basal cell carcinoma and melanoma-status post Mohs surgery. Physical Exam Const alert, oriented x3 and no apparent distress Orientation / Consciousness: awake, oriented to person, oriented to place and oriented to time HEENT normocephalic and moist oral mucous membranes Eyes PERRL, EOMs intact bilaterally and conjunctivae normal Neck no lymphadenopathy Resp normal respiratory effort and clear to auscultation bilaterally Cardio regular rate, regular rhythm and no murmurs Cardio Narrative: Upon exam, converted to sinus rhythm Peripheral Pulses: pulses 2+ throughout GI normal to inspection, nondistended, normoactive bowel sounds, non-tender and non-distended Extremity normal to inspection Skin no rashes or lesions noted Lesions: no lesions Rashes: no rashes Trauma: no lacerations or abrasions Neuro CN's II-XII intact bilaterally, no focal motor deficits, no sensory deficits noted and deep tendon reflexes 2+ bilaterally Psych mental status grossly normal and affect normal Patient seen and examined prior to discharge. Physical assessment as noted above. Patient is stable for discharge with follow up recommendations as noted above. This patient was seen by LAVON Wayne under the supervision of Dr. Grande. Time spent examining patient, reviewing data and subsequent management of care: 15 minutes Weight / BMI Weight Weight: 246 lb 4.101 oz Body Mass Index (BMI) 42.3 ABG / Lab / Microbiology Data Result Diagrams: 03/14/22 15:05 03/15/22 05:20 Laboratory: Laboratory Results - last 24 hr 03/14/22 15:05: WBC 9.0, RBC 5.60 H, Hgb 17.1 H, Hct 51.4 H, MCV 91.8, MCH 30.5, MCHC 33.3, RDW Std Deviation 46.1 H, RDW Coeff of Gallo 13.5, Plt Count 275, MPV 10.0, Immature Gran % (Auto) 0.600, Neut % (Auto) 62.5, Lymph % (Auto) 23.4, Dane % (Auto) 9.7, Eos % (Auto) 3.0, Baso % (Auto) 0.8, Absolute Neuts (auto) 5.6, Absolute Lymphs (auto) 2.10, Nucleated RBC % 0, Differential Comment SCANNED 04/22/22 15:05: PT 22.9 H, INR 2.1, APTT 43.5 H, D-Dimer Quant (PE/DVT) < 0.27 L 03/14/22 15:05: Sodium 141, Potassium 3.4 L, Chloride 109 H, Carbon Dioxide 27.0, Anion Gap 5, BUN 18, Creatinine 0.77, Estim Creat Clear Calc 45.20, Est GFR (MDRD) Af Amer 96, Est GFR (MDRD) Non-Af 79, BUN/Creatinine Ratio 23.5 H, Glucose 121 H, Calcium 9.7 03/14/22 15:05: Troponin I High Sens 3 03/14/22 15:52: Hemoglobin A1c 5.6 03/14/22 17:25: Troponin I High Sens 6 03/14/22 21:30: Troponin I High Sens 8 03/15/22 05:20: Sodium 140, Potassium 3.8, Chloride 109 H, Carbon Dioxide 24.0, Anion Gap 7, BUN 20 H, Creatinine 0.69, Estim Creat Clear Calc 45.20, Est GFR (MDRD) Af Amer 107, Est GFR (MDRD) Non-Af 89, BUN/Creatinine Ratio 28.8 H, Glucose 107 H, Calcium 8.5 Radiography Diagnostic Testing: Radiology Impression Chest X-Ray 03/14/22 16:02 IMPRESSION: There are no acute findings. Electronically Signed: Wisam Kohler MD at 16:33 EDT Reading Location ID and State: [facility] / [place] , Service support , D/C Instructions Discharge Diet: Low fat / Low cholesterol Call your doctor if you observe: Shortness of breath, Dizziness, Fainting spells, Chest pain and Increased palpitations (irregular heartbeat) Meaningful Use Info Meaningful Use Diagnoses (Choose all that apply): None applicable Discharge Plan Admission Admit Date/Time: 03/14/22 17:56 Primary Reason for Your Visit: A.fib, chest pain Attending Provider: Alden Grande Primary Care Provider: Arslan Simon Discharge Orders/Prescriptions Prescriptions: New metoprolol succinate 25 mg tablet extended release 24 hr 25 mg PO DAILY Qty: 30 RF: 0 Continued diltiazem HCl [DILT-XR] 120 capsule,ext.rel 24h degradable 120 mg PO DAILY RF: 0 warfarin 4 MG tablet 4 mg PO DAILY RF: 0 furosemide 20 MG tablet 20 mg PO DAILY RF: 0 biotin 5 MG tablet 5 mg PO DAILY RF: 0 cholecalciferol (vitamin D3) 2,000 UNIT capsule 2,000 unit PO DAILY RF: 0 magnesium oxide 400 MG tablet 250 mg PO DAILY RF: 0 levothyroxine [Euthyrox] 75 mcg tablet 75 mcg PO DAILY RF: 0 Referrals / Follow Up: Arslan Simon MD [Primary Care Provider] - In 1 Week Disposition Disposition (needs filled in before D/C Order can be placed): Home, Self Care Documented by User: Dr. Alden Grande MD 03/15/22 14:12 Providers Date of Admission: 03/14/22 Reason For Visit: CHEST PAIN Medications at Discharge Home Medications diltiazem HCl [DILT-XR] 120 mg PO DAILY 03/12/19 biotin 5 mg PO DAILY 07/25/20 cholecalciferol (vitamin D3) 2,000 unit PO DAILY 07/25/20 furosemide 20 mg PO DAILY 07/25/20 magnesium oxide 250 mg PO DAILY 07/25/20 warfarin 4 mg PO DAILY 07/25/20 levothyroxine [Euthyrox] 75 mcg PO DAILY 03/14/22 metoprolol succinate 25 mg PO DAILY #30 tab 03/15/22 Hospital Course Summary of Care Provided Hospital Course: This patient was seen in conjunction with [employer], Johana. I have independently interviewed and examined the patient and reviewed pertinent history, examination findings, laboratory and plan of management. I have reviewed the note and agree with the documented findings with the few additional points. In brief, patient is 72-year-old female admitted through ER for shortness of breath and chest pain. Please see H&P for details. She has history of SVT in the past and is on Cardizem. She had been evaluated with event monitor for A. fib and was negative. She also has history of recurrent DVT on chronic warfarin therapy. Her further hospital course as follows 1. New onset atrial fibrillation: Patient was converted to sinus rhythm in ED. Serial troponins negative. Recent TSH normal. Patient had treadmill nuclear stress test did not show ischemia. 2D echo was done EF 55 to 60%. Patient is on Cardizem CD 120 mg daily an effort to increase to 180 mg resulted in intolerance. Therefore started on metoprolol succinate 25 mg daily. Continue warfarin. 2. Atypical chest pain most likely due to A. fib with RVR/pounding sensation. Rest as mentioned above Multiple other comorbidities include history of SVT, recurrent DVT on warfarin, INR therapeutic. Hypertension, chronic HFpEF/diastolic heart failure, degenerative joint disease, obstructive sleep apnea on CPAP, hypothyroidism and basal cell carcinoma and melanoma status post surgery. Discharge medication reconciliation done. Discharge follow-up instructions completed. Discharge process discussed with the patient and all questions were answered to patient's satisfaction. Total time spent, exact 35 minutes on discharge meds reconciliation, examination, coordination of care with nurses and ancillary staff, review of imaging and blood test and discussion with the patient on follow-up instructions. I have discussed my assessment with [employer] and orders have been reviewed. Physical Exam Narrative Seen and examined. Patient does not have chest pain. She did well with the stress test. No acute events during the stress test. General: Alert, Oriented x3, Cooperative HEENT: Atraumatic, PERRLA, EOMI, Normocephalic Oral: No Gingival or Mucosal Lesions/ Ulcerations Neck: Supple, No JVD, Negative Carotid Bruits Lungs: Air entry diminished in bilateral lung bases. No crepitation/rhonchi Cardiovascular: Regular rate, Regular Rhythm, Normal S1, Normal S2, No murmurs Abdomen: Bowel Sounds Present, Soft, Non Tender, Non-Distended : No renal angle tenderness. No suprapubic tenderness. Extremities: No edema, Capillary Refill Less than 3 Seconds Skin: No rashes, No breakdown Musculoskeletal: No Tenderness to Palpation of Joints or Extremities Neurological: Cranial nerves II-XII grossly intact, DTR 2+/4 and Symmetrical, Neuro grossly intact Psych/Mental Status: Normal Affect, Appropriate ABG / Lab / Microbiology Data Result Diagrams: 03/14/22 15:03/15/22 05:20 Discharge Plan Admission Admit Date/Time: 03/14/22 17:56 Primary Reason for Your Visit: A.fib, chest pain Attending Provider: Alden Grande Primary Care Provider: Arslan Simon Discharge Orders/Prescriptions Prescriptions: New metoprolol succinate 25 mg tablet extended release 24 hr 25 mg PO DAILY Qty: 30 RF: 0 Continued diltiazem HCl [DILT-XR] 120 capsule,ext.rel 24h degradable 120 mg PO DAILY RF: 0 warfarin 4 MG tablet 4 mg PO DAILY RF: 0 furosemide 20 MG tablet 20 mg PO DAILY RF: 0 biotin 5 MG tablet 5 mg PO DAILY RF: 0 cholecalciferol (vitamin D3) 2,000 UNIT capsule 2,000 unit PO DAILY RF: 0 magnesium oxide 400 MG tablet 250 mg PO DAILY RF: 0 levothyroxine [Euthyrox] 75 mcg tablet 75 mcg PO DAILY RF: 0 Referrals / Follow Up: Arslan Simon MD [Primary Care Provider] - In 1 Week Disposition Disposition (needs filled in before D/C Order can be placed): Home, Self Care Charges/Coding Visit Charges OBSV E&M: 38667 Observation care discharge
--- NOTE | 2022-03-15 13:47 | STRESSREP ---
Stress Test Report Treadmill sestamibi myocardial perfusion stress test. Indication; 72-year-old female who presented to the ER with symptoms of shortness of breath and chest pain associated with palpitation and evidently symptoms have been while she was laying down taking a nap also she described heart pounding at rest. Patient had history of SVT and has been on Cardizem also patient had history of recurrent DVT and has been on chronic anticoagulation with Coumadin History of hypertension, chronic diastolic dysfunction Stress protocol: Resting EKG demonstrates. Normal sinus rhythm. Patient exercised according to standard Hernandez protocol, for a total of 5 minutes 20 seconds Her resting heart rate was 71 bpm this jaimie to a maximum heart rate of 129 bpm this value represented 86% of the maximal age-predicted heart rate. Resting blood pressure 144/73 mmHg At the end of the stress her blood pressure was 169/77 mmHg Her exercise test was terminated due to symptoms of fatigue, and the patient achieved a target heart rate Myocardial perfusion protocol. 14.5 mCi ]of Technetium 99m Sestamibi was injected at rest. Following maximal stress patient was given 44.6 mCi ]of Technetium 99m sestamibi was injected. Stress images were obtained stress and rest images were reconstructed and compared in the short axis vertical and horizontal long axis. Gated images were also obtained Perfusion SPECT analysis: Review of the images demonstrate normal uptake of sestamibi at rest, post stress images demonstrate similar uptake of sestamibi to the resting images, homogeneous tracer uptake With no evidence of reversible myocardial ischemia. Gated SPECT analysis: The gated ejection fraction is 66% Normal wall motion normal LV systolic function Conclusion: Negative treadmill sestamibi myocardial perfusion study for reversible myocardial ischemia Normal LV systolic function Recommendation; Correlate with clinical presentation and plan for follow-up with cardiology. Quincy Cortes MD,FACC,[facility]
--- NOTE | 2022-03-15 14:30 | NURSING ---
Reviewed charting with Herbert Martínez RN
== END 2022-03-15 13:05 | disposition home or self-care (01) ==
LOC: ED 18:12 → PCU 18:25
PROVIDERS: Nurse Practitioner Family; Admitting Provider Internal Medicine; Emergency Provider Emergency Medicine; PCP Family Medicine; Visit Provider Internal Medicine
DX: I48.0 Paroxysmal atrial fibrillation (principal); I11.0 Hypertensive heart disease with heart failure; I50.32 Chronic diastolic (congestive) heart failure; G47.33 Obstructive sleep apnea (adult) (pediatric); E87.6 Hypokalemia; E03.9 Hypothyroidism, unspecified; Z79.01 Long term (current) use of anticoagulants; M19.90 Unspecified osteoarthritis, unspecified site; Z79.890 Hormone replacement therapy; Z79.899 Other long term (current) drug therapy; Z86.718 Personal history of other venous thrombosis and embolism
CPT/HCPCS: 36415; 71045; 78452; 80048; 83036; 84484; 85025; 85379; 85610; 85730; 93005; 93017; 93306; 99218; 99285; A9500; Q9957; A4216; C8929; G0378

== ENCOUNTER → 2022-07-03 | Outpatient (CLI) | payer MEDICARE, BC, SELFPAY ==
[2022-07-03 12:09] LABS: Absolute Neutrophil Count 5.1 X10^3/uL (2.0-7.7); Basophil# 0.07 X10^3/uL; Basophil% 0.9 % (0-1); Eosinophil# 0.25 X10^3/uL; Eosinophils% 3.2 % (0-5); Hematocrit 48.2 % (37-47); Hemoglobin 15.9 g/dL (12.0-15.0); Lymphocyte % 20.2 % (19-41); Mean Corpuscular Hgb 30.6 pg (27.0-32.0); Mean Corpuscular Volume 92.7 fL (81-99); Monocyte# 0.83 X10^3/uL; Monocyte% 10.5 % (0-10); NRBC Flagged by Analyzer 0 % (0-5); Neutrophil # 5.13 X10^3/uL (2.7-7.7); Neutrophil % 64.8 % (47-70); Platelet Count 257 K/mm3 (150-450); RBC Distribution Width CV 13.7 % (11.6-14.6); RBC Distribution Width SD 46.7 fl (35.1-43.9); White Blood Count 7.9 K/mm3 (4.4-11.0)
[2022-07-03 12:17] LABS: Anion Gap 6 (5-15); BUN 18 mg/dL (7-18); BUN/Creat Ratio 23.3 RATIO (10-20); Chloride 108 mmol/L (98-107); Creatinine, Serum 0.77 mg/dL (0.55-1.02); EST Glomerular Filtration Rate 78 mL/min (>60); Est Glom Filt Rate - Afr Amer 95 mL/min (>60); Glucose 107 mg/dL (74-106); Potassium 3.7 mmol/L (3.5-5.1); Sodium Level 140 mmol/L (136-145)
[2022-07-08 11:32] LABS: Thyroid Stim Hormone (TSH) 1.27 uIU/mL (0.358-3.74)
== END | disposition home or self-care (01) ==
LOC: MTLAB 09:49
PROVIDERS: PCP Family Medicine; Referring Provider Specialist; Visit Provider Specialist
DX: Z01.818 Encounter for other preprocedural examination (principal); E03.9 Hypothyroidism, unspecified
CPT/HCPCS: 36415; 80048; 84443; 85025

== ENCOUNTER → 2022-08-26 | Outpatient (CLI) | payer MEDICARE, BC, SELFPAY ==
--- NOTE | 2022-08-26 07:42 | CT_ITS ---
STUDY: CT CHEST WITHOUT CONTRAST REASON FOR EXAM: Female, 72 years old. HYPOXEMIA. PLEASE COMPARE TO 02/27/16 CTA CHEST RADIATION DOSAGE (If Supplied By Facility): CTDIvol = ( 17.63 ) mGy, DLP = ( 665.08 ) mGycm TECHNIQUE: Transaxial imaging was performed without the administration of intravenous contrast material. Multiplanar coronal and sagittal images were reformatted. Individualized dose optimization techniques were used for this CT. COMPARISON: Comparison is made with prior examination 02/27/2016. FINDINGS: CHEST Stable 2 mm noncalcified nodule in the peripheral lateral aspect of the right lower lobe anteriorly as seen on axial image #82. Stable minimal linear scarring at the right lung base. Minimal degree of bronchiectasis. There is no demonstrated pleural abnormality. Normal heart and pericardium. Normal mediastinum. Normal hilar regions. Normal unenhanced pulmonary arteries. There is atherosclerotic calcification of the aortic arch. Normal osseous structures. There is no demonstrated abnormality of the visualized upper abdomen. CT/Chest without Contrast IMPRESSION: Stable examination. Electronically Signed: Bashir Crenshaw MD at 15:35 EDT ,
== END | disposition home or self-care (01) ==
LOC: CT 07:41
PROVIDERS: PCP Family Medicine; Referring Provider Internal Medicine Pulmonary Disease; Visit Provider Internal Medicine Pulmonary Disease
DX: R09.02 Hypoxemia (principal)
CPT/HCPCS: 71250

== ENCOUNTER → 2023-03-16 | Outpatient (CLI) | payer MEDICARE, BC, SELFPAY ==
[2023-03-16 17:58] LABS: Absolute Lymphocyte Count 1.94 X10^3/uL (0.83-4.51); Absolute Neutrophil Count 6.3 X10^3/uL (2.0-7.7); Basophil# 0.08 X10^3/uL; Basophil% 0.8 % (0-1); Eosinophil# 0.36 X10^3/uL; Eosinophils% 3.7 % (0-5); Hematocrit 48.7 % (37-47); Hemoglobin 16.2 g/dL (12.0-15.0); Lymphocyte # 1.94 X10^3/ul (0.83-4.51); Lymphocyte % 20.1 % (19-41); Mean Corp Hgb Conc 33.3 g/dL (32-36); Mean Corpuscular Hgb 30.8 pg (27.0-32.0); Mean Corpuscular Volume 92.6 fL (81-99); Monocyte# 0.94 X10^3/uL; Monocyte% 9.7 % (0-10); NRBC Flagged by Analyzer 0 % (0-5); Neutrophil # 6.29 X10^3/uL (2.7-7.7); Neutrophil % 65.3 % (47-70); Platelet Count 265 K/mm3 (150-450); RBC Distribution Width CV 13.4 % (11.6-14.6); RBC Distribution Width SD 45.7 fl (35.1-43.9); Red Blood Count 5.26 M/mm3 (4.2-5.4); White Blood Count 9.7 K/mm3 (4.4-11.0)
[2023-03-16 18:41] LABS: BNP,B-Type NATRIURETIC PEPTIDE 29.7 pg/mL (0-100)
[2023-03-16 18:54] LABS: ALB/GLOB Ratio 0.8 RATIO (0.9-2.4); AST(SGOT) 16 U/L (15-37); Alanine Aminotransfer ALT/SGPT 30 U/L (13-56); Albumin, Serum 3.5 g/dL (3.2-5.0); Alkaline Phosphatase 85 U/L (45-117); Anion Gap 6 (5-15); BUN 21 mg/dL (7-18); BUN/Creat Ratio 28.2 RATIO (10-20); Calcium,Total 9.4 mg/dL (8.5-10.1); Chloride 105 mmol/L (98-107); Creatinine, Serum 0.74 mg/dL (0.55-1.02); EST Glomerular Filtration Rate 82 mL/min (>60); Est Glom Filt Rate - Afr Amer 99 mL/min (>60); Free T3 2.6 pg/mL (2.18-3.98); Globulin 4.2 g/dL (2.2-4.2); Glucose 120 mg/dL (74-106); Potassium 3.7 mmol/L (3.5-5.1); Protein, Total 7.7 g/dL (6.4-8.2); Sodium Level 134 mmol/L (136-145); T4 Free Direct 1.16 ng/dL (0.76-1.46); Thyroid Stim Hormone (TSH) 1.38 uIU/mL (0.358-3.74)
== END | disposition home or self-care (01) ==
LOC: MFPLAB 14:45
PROVIDERS: PCP Family Medicine; Visit Provider Family Medicine
DX: R06.02 Shortness of breath (principal); E04.1 Nontoxic single thyroid nodule
CPT/HCPCS: 36415; 80053; 83880; 84439; 84443; 84481; 85025

== ENCOUNTER → 2023-03-18 | Outpatient (CLI) | payer MEDICARE, BC, SELFPAY ==
[2023-03-23 14:08] LABS: Erythropoietin 13.8 mIU/mL (2.6-18.5)
== END | disposition home or self-care (01) ==
LOC: MFPLAB 08:39
PROVIDERS: PCP Family Medicine; Visit Provider Family Medicine
DX: D58.2 Other hemoglobinopathies (principal)
CPT/HCPCS: 36415; 81270; 82668

== ENCOUNTER → 2023-03-19 | Outpatient (CLI) | payer MEDICARE, BC, SELFPAY ==
--- NOTE | 2023-03-19 12:08 | US_ITS ---
STUDY: THYROID ULTRASOUND REASON FOR EXAM: Female, 73 years old. Thyroid nodules. TECHNIQUE: Ultrasound evaluation of the thyroid was performed with real-time and static joseph-scale imaging. COMPARISON: None. FINDINGS: RIGHT LOBE: The right lobe of the thyroid gland measures 4.3 cm x 1.5 cm x 1.8 cm. There is a homogeneous echotexture. Multiple small cystic nodules with the septations are seen. There is also evidence of a 6 mm x 5 mm x 6 mm cystic/solid nodule in the midportion of the lobe. LEFT LOBE: The left lobe of the thyroid gland measures 5 cm x 2.5 cm x 2.7 cm. There is a homogeneous echotexture. There is a dominant 2 cm x 1.9 signed by 1.8 cm complex solid and cystic nodule in the mid lower portion of the left lobe. There is also evidence of a 1.3 cm x 1.2 cm x 1 cm septated complex cystic nodule adjacent to this. Intranodularpresentation is seen. Biopsy recommended. ISTHMUS: The isthmus measures 4.2 mm. The regional lymph nodes are normal. US/Thyroid IMPRESSION: Complex nodules in the left lobe of the thyroid as described. Tissue diagnosis is recommended. Electronically Signed: Bashir Crenshaw MD at 13:50 EDT ,
== END | disposition home or self-care (01) ==
LOC: US 12:08
PROVIDERS: PCP Family Medicine; Referring Provider Family Medicine; Visit Provider Family Medicine
DX: E04.1 Nontoxic single thyroid nodule (principal)
CPT/HCPCS: 76536

== ENCOUNTER → 2023-04-10 | Outpatient (CLI) | payer MEDICARE, BC, SELFPAY ==
[2023-04-10 13:35] LABS: INR Fingerstick 1.5; Prothrombin Time Fingerstick 17.1 SEC (11.7-14.9)
--- NOTE | 2023-04-10 15:00 | FLU_PTH ---
PATIENT: PARVIZ FARNSWORTH LOC: [facility] U#:[id number] AGE/SX: 73/F ROOM: RE04/10/[address]: Dr. Mikhail Cardenas MD : 1950 BED: DIS: 04/10/2023 SPEC #: [id number] RECD: 04/10/23 15:42 STATUS: JOSE A TALAT #: [id number] CLAUDIA: 04/10/23 15:[address]: Mikhail Cardenas DEPT: CYTOLOGY RECD BY: Jenny Shanks ENTERED: 04/13/23 08:16 SP TYPE: Fluid OTHR DR: Dr. Pedro Simon MD Tissues: A - Thyroid gland, NOS B - Thyroid gland, NOS C - Thyroid gland, NOS D - Thyroid gland, NOS Procedures: Special Stain Group II Surgery Specimen Level IV Cytospin Fluid Cytology Other HEADER OPERATION: Fine needle aspiration, left mid inferior thyroid nodules PRE-OP DIAGNOSIS: Thyroid nodules TISSUE SUBMITTED: A - Left mid thyroid nodule fluid, B - Left mid thyroid nodule x4 slides, C - Left inferior thyroid nodule fluid, D - Left inferior thyroid nodule x4 slides DIAGNOSIS CYTOLOGY A. 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 Adequate for evaluation. See comment. B. 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 Adequate for evaluation. See comment. C. Left inferior thyroid nodule fluid, fine needle aspiration (cytospin and cell block): Consistent with benign follicular/colloid nodule with cystic changes (Edison Category II). Adequate for evaluation. See comment. D. Left inferior thyroid nodule, fine needle aspiration (smears): Consistent with benign follicular/colloid nodule with cystic changes (Edison Category II). Adequate for evaluation. See comment. SJ:rg 04/14/2023 COMMENT Correlation with clinical, radiologic findings and appropriate follow up are necessary. The Edison System for thyroid diagnostic categorization was used in the evaluation of this case. CYTOLOGY STUDY Slides are reviewed. CYTOLOGY GROSS A - Received is 15 ml of red cloudy fluid labeled with the patient's name and and designated per the requisition as left mid thyroid nodule. Submitted for cytology preparation including cell block. B - Received are four smears labeled with the patient's name and designated per the requisition as left mid thyroid nodule. Submitted for staining. C - Received is 20 ml of red cloudy fluid labeled with the patient's name and and designated per the requisition as left inferior thyroid nodule. Submitted for cytology preparation including cell block. D - Received are four smears labeled with the patient's name and designated per the requisition as left inferior thyroid nodule. Submitted for staining. / zhang 04/13/2023 TC:5 CPT: 80170 x4, 37436 x2
== END | disposition home or self-care (01) ==
PROVIDERS: PCP Family Medicine; Referring Provider Surgery; Visit Provider Surgery
DX: E04.2 Nontoxic multinodular goiter (principal); I47.1 Supraventricular tachycardia
CPT/HCPCS: 36416; 85610; 88108; 88161; 88305; 88313

== ENCOUNTER → 2023-07-17 | Outpatient (CLI) | payer MEDICARE, BC, SELFPAY ==
--- NOTE | 2023-07-17 10:06 | RAD_ITS ---
EXAMINATION: Fluoroscopic esophagram INDICATION: DYSPHAGIA EXAMINATION/TECHNIQUE: Thick and thin barium oral contrast , barium tablet, and gas bubbles were administered to the patient. Total Fluoroscopic Time: 11 seconds AND number of Fluoroscopic Images: 5 spot images and 2 cine clips COMPARISON: None. FINDINGS: No masses or strictures are identified. There is no hiatal hernia. Normal mucosal pattern. Normal motility. The barium pill passes normally into the stomach. No reflux is elicited. RAD/Esophagus Dual Contrast IMPRESSION: Normal esophagram. Electronically Signed: Wero Oden DO at 12:01 EDT ,
== END | disposition home or self-care (01) ==
LOC: RAD 09:53
PROVIDERS: PCP Family Medicine; Referring Provider Family Medicine; Visit Provider Family Medicine
DX: R13.10 Dysphagia, unspecified (principal)
CPT/HCPCS: 74221

== ENCOUNTER → 2023-11-04 | Outpatient (CLI) | payer MEDICARE, BC, SELFPAY ==
--- NOTE | 2023-11-04 17:02 | RAD_ITS ---
STUDY: X-RAY CHEST REASON FOR EXAM: Female, 73 years old. cough and supraclavicualr fullness. TECHNIQUE: PA and lateral views of the chest. COMPARISON: 03/14/2022 FINDINGS: The lungs are clear and expanded. There is no demonstrated pleural abnormality. Normal size heart. Normal mediastinum and ivon. Normal visualized pulmonary arteries. There is atherosclerotic tortuosity of the aortic arch and descending thoracic aorta. Normal visualized thoracic spine. Surgical anchors left humeral head consistent with prior rotator cuff repair. There is no demonstrated abnormality of the visualized soft tissue structures of the upper abdomen. RAD/Chest PA and Lateral IMPRESSION: No active disease. Electronically Signed: Samuel Newman MD at 22:47 EST ,
[2023-11-04 18:05] LABS: Erythrocyte Sedimentation Rate 19 mm/hr (0-30)
[2023-11-04 18:07] LABS: Absolute Lymphocyte Count 2.15 X10^3/uL (0.83-4.51); Absolute Neutrophil Count 5.2 X10^3/uL (2.0-7.7); Basophil# 0.13 X10^3/uL; Basophil% 1.5 % (0-1); Eosinophil# 0.39 X10^3/uL; Eosinophils% 4.4 % (0-5); Hematocrit 49.2 % (37-47); Hemoglobin 16.1 g/dL (12.0-15.0); Lymphocyte # 2.15 X10^3/ul (0.83-4.51); Lymphocyte % 24.4 % (19-41); Mean Corp Hgb Conc 32.7 g/dL (32-36); Mean Corpuscular Hgb 30.4 pg (27.0-32.0); Mean Platelet Vol. 9.9 fl (6.2-12.0); Monocyte# 0.91 X10^3/uL; Monocyte% 10.3 % (0-10); NRBC Flagged by Analyzer 0 % (0-5); Neutrophil % 58.9 % (47-70); Platelet Count 269 K/mm3 (150-450); RBC Distribution Width CV 13.3 % (11.6-14.6); RBC Distribution Width SD 45.6 fl (35.1-43.9); Red Blood Count 5.29 M/mm3 (4.2-5.4); White Blood Count 8.8 K/mm3 (4.4-11.0)
[2023-11-04 18:15] LABS: Anion Gap 7 (5-15); BUN 18 mg/dL (7-18); BUN/Creat Ratio 21.6 RATIO (10-20); Calcium,Total 9.1 mg/dL (8.5-10.1); Chloride 106 mmol/L (98-107); Cholesterol 161 mg/dL (200); Creatinine, Serum 0.84 mg/dL (0.55-1.02); EST Glomerular Filtration Rate 71 mL/min (>60); Est Glom Filt Rate - Afr Amer 86 mL/min (>60); Glucose 96 mg/dL (74-106); High Density Lipoprotein 54 mg/dL; Potassium 3.8 mmol/L (3.5-5.1); Sodium Level 139 mmol/L (136-145); Thyroid Stim Hormone (TSH) 1.29 uIU/mL (0.358-3.74); Triglycerides 108 mg/dL; Very Low Density Lipoprotein 22 mg/dL (5-40)
== END | disposition home or self-care (01) ==
LOC: MTLAB 16:58
PROVIDERS: PCP Family Medicine; Referring Provider Family Medicine; Visit Provider Family Medicine
DX: R59.0 Localized enlarged lymph nodes (principal); E03.9 Hypothyroidism, unspecified; I10 Essential (primary) hypertension
CPT/HCPCS: 36415; 71046; 80048; 80061; 84443; 85025; 85652

== ENCOUNTER → 2023-11-17 | Outpatient (CLI) | payer MEDICARE, BC, SELFPAY ==
--- NOTE | 2023-11-17 07:41 | CT_ITS ---
INDICATION: lump on right supraclavicular area (focus on right supraclavicular EXAMINATION: CT CHEST WITH CONTRAST - CT Chest W/ Contrast Injection TECHNIQUE: Helically acquired images were obtained of the chest following IV contrast. A radiation dose optimization technique was used for this scan. IV Contrast dosage and agent: 100 cc of Isovue-[id number]. RADIATION DOSAGE (If Supplied By Facility): CTDIvol = ( 19.57 ) mGy, DLP = ( 714.86 ) mGycm COMPARISON: Prior study dated: 08/26/2022. FINDINGS: LUNGS, PLEURA AND LARGE AIRWAYS: Stable 2 mm right lower lobe nodule seen on image 83 series 4 unchanged. Hypoventilatory changes in the lower lungs. No focal consolidation is seen. No pleural effusion or thickening. No pneumothorax. THYROID: 7 mm left lobe thyroid nodule. HEART AND PERICARDIUM: Heart size is normal. No pericardial effusion. No definite coronary calcifications. VESSELS: Atherosclerotic calcifications of the aortic arch and tortuosity of the descending thoracic aorta. No aortic dissection. No obvious central pulmonary embolism although this study was not performed with the pulmonary embolism protocol. MEDIASTINUM AND SAVANNAH: No mediastinal or hilar adenopathy. Esophagus is unremarkable. No hiatal hernia. UPPER ABDOMEN: No acute pathology. BONES: No suspicious lytic or blastic abnormality. Degenerative changes of both shoulders. CT/Chest WITH Contrast IMPRESSION: 1. Stable small right lower lobe nodule for which no further follow-up exam is needed other than routine annual screening. 2. Hypoventilatory and mild chronic changes in the lung bases. 3. Otherwise no mass, adenopathy or focal acute pulmonary infiltrate. Electronically Signed: Neil Mcgowan MD at 9:37 EST ,
== END | disposition home or self-care (01) ==
LOC: CT 07:41
PROVIDERS: PCP Family Medicine; Referring Provider Family Medicine; Visit Provider Family Medicine
DX: R22.2 Localized swelling, mass and lump, trunk (principal)
CPT/HCPCS: 71260; Q9967; A4216

== ENCOUNTER → 2023-12-10 | Outpatient (CLI) | payer MEDICARE, BC, SELFPAY ==
--- NOTE | 2023-12-10 09:06 | BD_ITS ---
STUDY: DUAL ENERGY X-RAY ABSORPTIOMETRY / DXA REASON FOR EXAM: Female, 73 years old. [id number] TECHNIQUE: Bone Mineral Density (BMD) measurements of lumbar spine and bilateral hips were obtained. COMPARISON: Comparison is made with prior study dated May 15, 2010. FINDINGS: Lumbar Spine (L1-L4): g/cm2 (0.843) / T-score (-2.0) / Z-score (0.3) Findings are suggestive of osteopenia with a moderate fracture risk. Left Femur Total: g/cm2 (0.885) / T-score (-0.5) / Z-score (1.1) Left Femoral Neck: g/cm2 (0.746) / T-score (-0.9) / Z-score (1.0) Right Femur Total: g/cm2 (0.890) / T-score (-0.4) / Z-score (1.2) Right Femoral Neck: g/cm2 (0.709) / T-score (-1.3) / Z-score (0.6) The T-Scores on the most recent prior examination were: Lumbar Spine (L1-L4): There has been worsening of bone density since the previous examination. Left Femur Total: which represents a worsening of 2.9%. Right Femur Total: which represents a worsening of 10.5%. BD/Dexa Bone Density Study IMPRESSION: The patient is considered osteopenic as outlined below according to World [employer] (WHO) criteria with a moderate fracture risk. There has been worsening of bone density since the previous examination. Reference Information: The T-score is the number of standard deviations above or below the standard which is normal for young adults at their peak bone mineral density. The World Health Organization (WHO) interprets the T-scores as follows: Above -1 Normal bone density Between -1 and -2.5 Osteopenia Equal to / or below -2.5 Osteoporosis As a practical clinical guideline, osteopenia may be graded as follows: Mild -1 through -1.5 Moderate -1.6 through -2.0 Severe -2.1 through -2.4 The Z-score is the number of standard deviations above or below age-matched controls. A Z-score of less than -1.5 would be considered abnormal. References: 1. NIH Osteoporosis and Related Bone Diseases www osteo.org 2. International Society for Clinical Densitometry www iscd.org 3. National Osteoporosis Foundation www nof.org Electronically Signed: Bashir Crenshaw MD at 8:56 EST ,
--- OUTSIDE RECORDS SUMMARY | 2023-12-10 09:11 | XMS RPT_ITS | CCD ---
Author Name Unknown Address [address] [place] [address] Organization [facility] Care Team Providers Care Ophthalmic Assistant Name Role Phone Alfred SNOWDEN, Pedro Bose Primary Care Provider ALFRED SNOWDEN, DR OSEI Primary Care Physician RAMANDEEP SNOWDEN, DR FLORENTINO Attending Shahbaz Jama MD, DR OSEI Primary Care Luis SABILLON MD, DR FLORENTINO Attending Shahbaz Jama MD, DR OSEI Primary Care Luis SABILLON MD, DR FLORENTINO Attending Shahbaz Jama MD, DR OSEI Primary Care Luis ricci Allergies Allergy Classification Reported Allergen(s) Allergy Type Date of Onset Reaction(s) Facility (2 sources) Adhesive agent Drug Intolerance 4 Rash, Itching [facility] Work Phone: (2 sources) Risedronate Drug Allergy 9 Other: See Comments [facility] (5 sources) Sulfonamides (Antibiotic); Translations: [sulfa drugs] Propensity to adverse reactions 6 Rash [facility] Work Phone: (3 sources) Adhesive bandage Propensity to adverse reactions to substance skin irritation [facility] (3 sources) Risedronate; Translations: [risedronate] Drug Allergy Muscle pain (finding) [facility] Medications Current Medications Medication Drug Class(es) Dates Sig (Normalized) Sig (Original) Biotin (5 sources) Start: 02-04-2023 biotin Oral, q Day, 0 Refill(s) Start Date: 02/04/23 Status: Ordered Completed/Discontinued Medications Medication Drug Class(es) Dates Sig (Normalized) Sig (Original) Calcium Carbonate / vitamin D3 (2 sources) CALCIUM CARBONATE/VITAMIN D3 (VITAMIN D-3 ORAL) Take by mouth. 0 Active Problems Active Problems Problem Classification Problem Date Documented Date Episodic/Chronic Cardiac dysrhythmias (10 sources) Supraventricular tachycardia; Translations: [Supraventricular tachycardia] Onset: 09-23-2016 09-23-2016 Chronic Congestive heart failure; nonhypertensive (5 sources) Chronic diastolic heart failure; Translations: [Chronic diastolic (congestive) heart failure] 02-04-2023 Chronic Essential hypertension (5 sources) Hypertensive disorder; Translations: [Essential (primary) hypertension] Onset: 03-19-2020 02-17-2022 Chronic Hypertension with complications and secondary hypertension (2 sources) Hypertensive heart failure; Translations: [Hypertensive heart disease with heart failure] Chronic Osteoarthritis (2 sources) Arthritis of knee; Translations: [Unilateral primary osteoarthritis, unspecified knee] Onset: 03-19-2020 02-17-2022 Chronic Other and ill-defined heart disease (2 sources) Diastolic dysfunction; Translations: [Other ill-defined heart diseases] Onset: 09-23-2016 09-23-2016 Chronic Other lower respiratory disease (3 sources) Dyspnea 02-04-2023 Episodic Other nutritional; endocrine; and metabolic disorders (2 sources) Obesity; Translations: [Obesity, unspecified] Onset: 03-19-2020 02-17-2022 Chronic Other screening for suspected conditions (not mental disorders or infectious disease) (2 sources) Patient encounter status; Translations: [Encounter for screening mammogram for malignant neoplasm of breast] Episodic Past or Other Problems Problem Classification Problem Date Documented Da te Episodic/Chronic Genitourinary symptoms and ill-defined conditions (2 sources) Hematuria of undiagnosed cause; Translations: [Hematuria, unspecified] Onset: 05-23-2013 05-23-2013 Episodic Other bone disease and musculoskeletal deformities (2 sources) Osteopenia; Translations: [Other specified disorders of bone density and structure, unspecified site] Onset: 04-28-2012 04-28-2012 Episodic Results Test Name Value Interpretation Reference Range Facil ity Vital Signs Date Time Vital Sign Value Performing Clinician Maria Elena morales 02-17-2022 08:37-0400 Body height 163.8 cm Alice Lofton MD Work Phone: [facility] 02-17-2022 08:37-0400 Body weight 112.95 kg Alice Lofton MD Work Phone: [facility] 02-17-2022 08:37-0400 Diastolic blood pressure 82 mm[Hg] Alice Lofton MD Work Phone: [facility] 02-17-2022 08:37-0400 Systolic blood pressure 138 mm[Hg] Alice Lofton MD Work Phone: [facility] Encounters Encounter Date Encounter Type Care Provider Facility Start: 08-21-2023 End: 08-22-[address] CHADD SABILLON MD Facility:B Start: 08-21-2023 End: 08-21-[address] CHADD SABILLON MD [facility] Start: 02-23-2023 End: 02-24-[address] CHADD SABILLON MD Facility:[facility] Start: 02-23-2023 End: 02-23-[address] CHADD SABILLON MD [facility] Start: 02-10-2023 End: 02-11-[address] CHADD SABILLON MD Facility:[facility] Start: 02-10-2023 End: 02-10-[address] CHADD SABILLON MD [facility] Start: 02-17-2022 End: 02-17-2022 Subsequent hospital visit by physician Screen Mammo [facility] Mammogram Procedures Date Procedure Procedure Detail Performing Clinician Start: 02-10-[address] DAY SABILLON MD Plan of Treatment Date Care Activity Detail Author Start: 02-17-2023 Mammography MAMMOGRAM [facility] Start: 08-25-2022 Colonoscopy COLONOSCOPY [facility] Start: 08-25-2022 COLORECTAL CANCER SCREENING COLORECTAL CANCER SCREENING [facility] Start: 11-23-2021 ADVANCE DIRECTIVE DISCUSSION ADVANCE DIRECTIVE DISCUSSION [facility] Start: 09-03-2018 DIABETES SCREEN DIABETES SCREEN [facility] Start: 01-19-2018 SHINGRIX VACCINE (3 of 3) SHINGRIX VACCINE (3 of 3) [facility] Start: 04-28-2017 LIPID SCREEN LIPID SCREEN [facility] Start: 02-15-1997 COLOGUARD (FIT-DNA) COLOGUARD (FIT-DNA) [facility] Start: 02-15-[address] COLONOGRAPHY [facility] Start: 02-15-1997 FECAL OCCULT BLOOD FECAL OCCULT BLOOD [facility] Start: 02-15-1997 SIGMOIDOSCOPY SIGMOIDOSCOPY [facility] Start: 02-15-1971 Urine microalbumin profile DTAP,TDAP,TD (1 - Tdap) [facility] Start: 02-15-1970 ANNUAL PCP TEAM CHRONIC DISEASE VISIT ANNUAL PCP TEAM CHRONIC DISEASE VISIT [facility] Start: 02-15-1970 BP CONTROLLED (<130/80) BP CONTROLLED (<130/80) [facility] Start: 02-15-1970 HEPATITIS C SCREENING HEPATITIS C SCREENING [facility] Start: 1964 Adult depression screening assessment DEPRESSION SCREENING [facility] End: 03-19-2023 COLLEEN SCREENING W [facility]ACHI COLLEEN SCREENING [facility] Radiology Routine Encounter for gynecological examination (general) (routine) without abnormal findings Encounter for screening mammogram for breast cancer 1 Occurrences starting 02/17/2022 until 03/19/[address] [facility] Work Phone: Immunizations Immunization Date Immunization Notes Care Provider Adelina vazquez 02-20-2021 COVID-19, mRNA, LNP- S, PF, 100 mcg or 50 mcg dose; Translations: [Moderna COVID-19 Vaccine] DR CHADD SABILLON MD [facility] 01-23-2021 COVID-19, mRNA, LNP- S, PF, 100 mcg or 50 mcg dose; Translations: [Moderna COVID-19 Vaccine] DR CHADD SABILLON MD [facility] 08-17-2020 influenza, injectabl e, quadrivalent, contains preservative Alice Lofton MD Work Phone: [facility] 09-20-2019 influenza, seasonal, injectable Alice Lofton MD Work Phone: [facility] 09-13-2018 influenza, seasonal, injectable Alice Lofton MD Work Phone: [facility] 06-15-2018 pneumococcal polysaccharide vaccine, 23 valent Alice Lofton MD Work Phone: [facility] 06-10-2017 pneumococcal conjuga te vaccine, 13 valent Alice Lofton MD Work Phone: [facility] 04-21-2014 zoster vaccine, live Alice Lofton MD Work Phone: [facility] Payers Date Payer Category Payer Unknown [id number] 2023 Medicare [id number] 2018 Unknown ISABELLE W[place] DICARE SUPPLE[place] [id number] 2018-Present [phone] [address] [place] [address] Indemnity [id number] 2017 Medicare MEDICARE MEDICAR E A AND B [id number] 2017-Present [phone] [address] [address] [place] [address] Medicare 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 Author Type: Technologist Type: Progress Notes Filed: 02/17/2022 9:08 AM Note Text: Radiology Service Progress Note PATIENT NAME: Parviz Tracy DATE OF SERVICE: February 17, 2022 TIME: 9:08 AM PATIENT IDENTITY VERIFICATION COMPLETED USING TWO (2) IDENTIFIERS: Name and Date of confirmed by patient verbally. FALL SCREENING: Has the patient had 2 falls in the last year or 1 fall with injury or currently using an Ambulatory Assistive Device (Walker, Cane, Wheelchair, Crutches, etc.)? No PATIENT GENDER DATA: Female. status: : No status: NO. PATIENT RELEVANT IMPLANT DATA REVIEWED: Not Applicable RADIOLOGY DEPARTMENT: Mammography PERIPHERAL IV DATA: Not applicable SIGNED BY: RT Tangela(R) February 17, 2022 9:08 AM [facility] 02-17-2022 Note HNO ID: [id number] Author: Alice Lofton MD Service: ? Author Type: Physician Type: Progress Notes Filed: 02/17/2022 8:55 AM Note Text: Parviz is a 72 year old who presents for an annual gynecologic exam without complaints. Postmenopausal: yes HRT use: No. Last Pap: 12/22/2017 normal HPV: 12/17/2017 negative History of abnormal pap: No Last mammogram: 2021 today Sexually active: occas., no change in partners OB History T2 L2 SAB0 IAB1 Ectopic0 Multiple0 Live Births0 Comment: NORMAL VAGINAL DELIVERY X2. Senior Research Engineer History LMP: Postmenopausal Age at Menarche: Age at First : Age at Menopause: Senior Research Engineer History Comments: Sexual Activity: Yes; Male Contraception: No contraception data on record PAST MEDICAL HISTORY Diagnosis Date - Backache, unspecified - Benign shuddering attacks - Carpal tunnel syndrome - Diastolic dysfunction - DVT of leg (deep venous thrombosis) ([facility]) 02/2019 - Insomnia - Melanoma of right upper arm ([facility]) 01/2020 - Osteopenia - Other malignant neoplasm of skin, site unspecified Non-melanoma skin cancer; basal cell carcinoma - Other specified disorders of rotator cuff syndrome of shoulder and allied disorders TEAR - Phlebitis and thrombophlebitis of unspecified site - Restless legs syndrome (RLS) - Severe sleep apnea - Squamous cell carcinoma, arm 09/2020 - Supraventricular tachycardia (HCC) - Vocal cord dysfunction PAST SURGICAL HISTORY Procedure Laterality Date - BREAST BIOPSY 12/24/2010 - COLONOSCOPY FLX DX W/COLLJ SPEC WHEN PFRMD 03/23/2012 Colonoscopy - Dr. Hill - DILATION AND CURETTAGE DXAND/THER NONOBSTETRIC Dilation AND curettage, X-2 - MOHS MICROGRAPHIC H/N/H/F/G EACH ADDL STAGE On left side of face- right arm - OPEN REPAIR OF ROTATOR CUFF ACUTE Rotator cuff repair - PAST SURGICAL HISTORY OF [place] teeth extracted - PAST SURGICAL HISTORY OF 08/23/2006 Back Surgery, Disc - REMV CATARACT EXTRACAP,INSERT LENS Bilateral - SALPINGECTOMY BILATERAL, PARTIAL - TONSILLECTOMY PRIMARY/SECONDARY - TOTAL KNEE REPLACEMENT Right 08/08/2020 FAMILY HISTORY Problem Relation Age of Onset - Arthritis Mother - Osteoporosis Mother - Blindness Mother glaucoma - Prostate Cancer Father - Colon Cancer Father small cell - other (polycythemia) Sister - other (oral cancer) Brother toungue - Osteoporosis Maternal Grandmother - Cancer Paternal Grandmother SKIN CANCER ON BACK - Hypertension Other STRONG FAMILY HISTORY - other (HEART DISEASE) Other STRONG FAMILY HISTORY - Diabetes Other STRONG FAMILY HISTORY, Maternal - other (Blood Clots) Other Maternal side of family SOCIAL HISTORY Social History Tobacco Use - Smoking status: Never Smoker - Smokeless tobacco: Never Used Vaping Use - Vaping Use: Never used Substance Use Topics - Alcohol use: No - Drug use: No REVIEW OF SYSTEMS Abdomen: No abdominal pain, nausea, vomiting, diarrhea, or constipation. No bloating, early satiety, indigestion, or increased flatulence. Bladder: some frequency, no dysuria Breast: No breast lumps, nipple d/c, overlying skin changes, redness or skin retraction Allergies and current medication updated:Yes EXAM: Ht 5' 4.5 (1.64m) Wt 249 lb (112.9kg) BMI 42.10 kg/(m2). GENERAL: pleasant, female in no apparent distress HEENT: Normocephalic, atraumatic, mucus membranes moist and no lesions NECK: Supple, full range of motion, no adenopathy and thyroid normal DERMATOLOGY: Normal, without lesions, non-icteric and non-hirsute BREAST: soft, non-tender, symmetric, no dominant mass, normal nipple-areolar complex, no lymphadenopathy and no nipple discharge CHEST: Normal inspiratory effort ABDOMEN: soft, non-tender and no masses PELVIC: external genitalia normal, normal Bartholin's glands, urethra, [employer]'s glands, no vulvar lesions, no cervical lesions, physiologic discharge present, normal appearing perineal body and perianal region, widened introitus, flattened vaginal epithelium, moderate rectocele, grade 1 cystocele BIMANUAL: uterus normal size, shape and consistency, no adnexal masses and non-tender RECTOVAGINAL: deferred. NEURO: alert and oriented x3,exam grossly non-focal EXTREMITIES: normal ASSESSMENT/PLAN: 1) Health maintenance: Pap done with HPV. Mammogram ordered Colon cancer screenin 2) Follow up one year or sooner as needed Alice Lofton MD [facility] 02-17-2022 History of Present illness Narrative Radiology Service Progress Note PATIENT NAME: Parviz Tracy DATE OF SERVICE: February 17, 2022 TIME: 9:08 AM PATIENT IDENTITY VERIFICATION COMPLETED USING TWO (2) IDENTIFIERS: Name and Date of confirmed by patient verbally. FALL SCREENING: Has the patient had 2 falls in the last year or 1 fall with injury or currently using an Ambulatory Assistive Device (Walker, Cane, Wheelchair, Crutches, etc.)? No PATIENT GENDER DATA: Female. status: : No status: NO. PATIENT RELEVANT IMPLANT DATA REVIEWED: Not Applicable RADIOLOGY DEPARTMENT: Mammography PERIPHERAL IV DATA: Not applicable SIGNED BY: RT Tangela(R) February 17, 2022 9:08 AM documented in this encounter [facility] 02-17-2022 History of Present illness Narrative Parviz is a 72 year old who presents for an annual gynecologic exam without complaints. Postmenopausal: yes HRT use: No. Last Pap: 12/22/2017 normal HPV: 12/17/2017 negative History of abnormal pap: No Last mammogram: 2021 today Sexually active: occas., no change in partners OB History T2 L2 SAB0 IAB1 Ectopic0 Multiple0 Live Births0 Comment: NORMAL VAGINAL DELIVERY X2. Senior Research Engineer History LMP: Postmenopausal Age at Menarche: Age at First : Age at Menopause: Senior Research Engineer History Comments: Sexual Activity: Yes; Male Contraception: No contraception data on record PAST MEDICAL HISTORY Diagnosis Date Backache, unspecified Benign shuddering attacks Carpal tunnel syndrome Diastolic dysfunction DVT of leg (deep venous thrombosis) (HCC) 02/2019 Insomnia Melanoma of right upper arm (HCC) 01/2020 Osteopenia Other malignant neoplasm of skin, site unspecified Non-melanoma skin cancer; basal cell carcinoma Other specified disorders of rotator cuff syndrome of shoulder and allied disorders TEAR Phlebitis and thrombophlebitis of unspecified site Restless legs syndrome (RLS) Severe sleep apnea Squamous cell carcinoma, arm 09/2020 Supraventricular tachycardia (HCC) Vocal cord dysfunction PAST SURGICAL HISTORY Procedure Laterality Date BREAST BIOPSY 12/24/2010 COLONOSCOPY FLX DX W/COLLJ SPEC WHEN PFRMD 03/23/2012 Colonoscopy - Dr. Hill DILATION & CURETTAGE DX&/THER NONOBSTETRIC Dilation & curettage, X-2 MOHS MICROGRAPHIC H/N/H/F/G EACH ADDL STAGE On left side of face- right arm OPEN REPAIR OF ROTATOR CUFF ACUTE Rotator cuff repair PAST SURGICAL HISTORY OF [place] teeth extracted PAST SURGICAL HISTORY OF 08/23/2006 Back Surgery, Disc REMV CATARACT EXTRACAP,INSERT LENS Bilateral SALPINGECTOMY BILATERAL, PARTIAL TONSILLECTOMY PRIMARY/SECONDARY <AGE 12 TOTAL KNEE REPLACEMENT Right 08/08/2020 FAMILY HISTORY Problem Relation Age of Onset Arthritis Mother Osteoporosis Mother Blindness Mother glaucoma Prostate Cancer Father Colon Cancer Father small cell other (polycythemia) Sister other (oral cancer) Brother toungue Osteoporosis Maternal Grandmother Cancer Paternal Grandmother SKIN CANCER ON BACK Hypertension Other STRONG FAMILY HISTORY other (HEART DISEASE) Other STRONG FAMILY HISTORY Diabetes Other STRONG FAMILY HISTORY, Maternal other (Blood Clots) Other Maternal side of family SOCIAL HISTORY Social History Tobacco Use Smoking status: Never Smoker Smokeless tobacco: Never Used Vaping Use Vaping Use: Never used Substance Use Topics Alcohol use: No Drug use: No REVIEW OF SYSTEMS Abdomen: No abdominal pain, nausea, vomiting, diarrhea, or constipation. No bloating, early satiety, indigestion, or increased flatulence. Bladder: some frequency, no dysuria Breast: No breast lumps, nipple d/c, overlying skin changes, redness or skin retraction Allergies and current medication updated:Yes EXAM: Ht 5' 4.5 (1.64m) Wt 249 lb (112.9kg) BMI 42.10 kg/(m^2). GENERAL: pleasant, female in no apparent distress HEENT: Normocephalic, atraumatic, mucus membranes moist and no lesions NECK: Supple, full range of motion, no adenopathy and thyroid normal DERMATOLOGY: Normal, without lesions, non-icteric and non-hirsute BREAST: soft, non-tender, symmetric, no dominant mass, normal nipple-areolar complex, no lymphadenopathy and no nipple discharge CHEST: Normal inspiratory effort ABDOMEN: soft, non-tender and no masses PELVIC: external genitalia normal, normal Bartholin's glands, urethra, [employer]'s glands, no vulvar lesions, no cervical lesions, physiologic discharge present, normal appearing perineal body and perianal region, widened introitus, flattened vaginal epithelium, moderate rectocele, grade 1 cystocele BIMANUAL: uterus normal size, shape and consistency, no adnexal masses and non-tender RECTOVAGINAL: deferred. NEURO: alert and oriented x3,exam grossly non-focal EXTREMITIES: normal ASSESSMENT/PLAN: 1) Health maintenance: Pap done with HPV. Mammogram ordered Colon cancer screenin 2) Follow up one year or sooner as needed Alice Lofton MD documented in this encounter [facility] 08-04-2021 Note HNO ID: [id number] Author: Virgil Johnson APRN.OUTSIDE [employer]ICAL SALES REPRESENTATIVE Service: ? Author Type: Nurse Practitioner Type: Progress Notes Filed: 08/04/2021 9:18 AM Note Text: Subjective HPI Patient presents to urgent care with chief complaint of upper respiratory tract like infection. Duration of symptoms 5 days. Associated symptoms sore throat, nasal congestion, nasal discharge and nonproductive cough. Patient states she does have transient body aches and watery eyes upon arising. Did use Mucinex for symptom management. Patient states recent sick contacts with similar signs and symptoms. Patient denies any productive, fever, chest pain, shortness of breath, pleuritic pain, rash, abdominal pain, nausea, vomiting or change in bowel or bladder habit. Past medical history prescription medication use allergies reviewed .Patient presents with: Cough: with sore throat, watery eyes, congestion AND bodyaches x 5 days PAST MEDICAL HISTORY Diagnosis Date - Backache, unspecified - Benign shuddering attacks - Carpal tunnel syndrome - Diastolic dysfunction - DVT of leg (deep venous thrombosis) ([facility]) 02/2019 - Insomnia - Melanoma of right upper arm ([facility]) 01/2020 - Osteopenia - Other malignant neoplasm of skin, site unspecified Non-melanoma skin cancer; basal cell carcinoma - Other specified disorders of rotator cuff syndrome of shoulder and allied disorders TEAR - Phlebitis and thrombophlebitis of unspecified site - Restless legs syndrome (RLS) - Severe sleep apnea - Squamous cell carcinoma, arm 09/2020 - Supraventricular tachycardia (HCC) - Vocal cord dysfunction PAST SURGICAL HISTORY Procedure Laterality Date - BREAST BIOPSY 12/24/2010 - COLONOSCOP W/ OR W/O [facility] SPEC 03/23/2012 Colonoscopy - Dr. Hill - DANNV, DIAG AND/OR THERAPEUTIC Dilation AND curettage, X-2 - MOHS, ADDL STAGE, HEAD/NECK/HAND/FEET/GENTIAL On left side of face- right arm - PAST SURGICAL HISTORY OF [place] teeth extracted - PAST SURGICAL HISTORY OF 08/23/2006 Back Surgery, Disc - REMOVAL OF TONSILS,<12 Y/O - REPAIR ROTATOR CUFF,ACUTE Rotator cuff repair - SALPINGECTOMY BILATERAL, PARTIAL - TOTAL KNEE REPLACEMENT Right 08/08/2020 ALLERGIES Actonel [Risedronate Sodium], Adhesive, and Sulfa (Sulfonamide Antibiotics) MEDICATIONS levothyroxine (SYNTHROID) 50 mcg tablet Take 50 mcg by mouth once daily. furosemide (LASIX) 20 mg tablet Take 20 mg by mouth every morning. warfarin (COUMADIN) 4 mg tablet Take 4 mg by mouth once daily. DILT-XR 120 mg 24 hr capsule Take 120 mg by mouth once daily. cholecalciferol, vitamin D3, (VITAMIN D3 ORAL) Take 2,000 Units by mouth once daily. CALCIUM CARBONATE/VITAMIN D3 (VITAMIN D-3 ORAL) Take by mouth. BIOTIN ORAL Take 1,000 mg by mouth once daily. metoprolol tartrate, short acting, (LOPRESSOR) 50 mg tablet lisinopril (ZESTRIL, PRINIVIL) 20 mg tablet Take 20 mg by mouth once daily. MAGNESIUM CITRATE ORAL Take by mouth. FAMILY HISTORY Problem Relation Age of Onset - Arthritis Mother - Osteoporosis Mother - Blindness Mother glaucoma - Prostate Cancer Father - Colon Cancer Father small cell - other (polycythemia) Sister - Cancer Paternal Grandmother SKIN CANCER ON BACK - Hypertension Other STRONG FAMILY HISTORY - other (HEART DISEASE) Other STRONG FAMILY HISTORY - Diabetes Other STRONG FAMILY HISTORY, Maternal - Osteoporosis Maternal Grandmother - other (Blood Clots) Other Maternal side of family Social History Tobacco Use - Smoking status: Never Smoker - Smokeless tobacco: Never Used Vaping Use - Vaping Use: Never used Substance Use Topics - Alcohol use: No - Drug use: No BP 124/74 Pulse 78 Temp 36.9 ?C (98.5 ?F) (Left Tympanic) Resp 16 Wt 112.6 kg (248 lb 3.2 oz) SpO2 95% BMI 41.95 kg/m? Review of Systems Constitutional: Positive for malaise/fatigue. Negative for chills and fever. HENT: Positive for congestion and sore throat. Negative for ear discharge, ear pain and sinus pain. Eyes: Negative for blurred vision, pain, discharge and redness. Respiratory: Positive for cough. Negative for sputum production, shortness of breath, wheezing and stridor. Cardiovascular: Negative for chest pain. Gastrointestinal: Negative for abdominal pain, diarrhea, nausea and vomiting. Musculoskeletal: Negative for myalgias. Skin: Negative for itching and rash. Neurological: Negative for dizziness and headaches. Objective Physical Exam Constitutional: General: She is not in acute distress. Appearance: She is not diaphoretic. HENT: Head: Normocephalic. Nose: Congestion present. Mouth/Throat: Mouth: Mucous membranes are moist. Pharynx: Oropharynx is clear. No oropharyngeal exudate or posterior oropharyngeal erythema. Eyes: Conjunctiva/sclera: Conjunctivae normal. Pupils: Pupils are equal, round, and reactive to light. Cardiovascular: Rate and Rhythm: Normal rate and regular rhythm. H (more content not included)... [facility] 03-04-2021 Note HNO ID: [id number] Author: Jackelyn Calvillo (Tech) Service: ? Author Type: Cook Fry Type: Progress Notes Filed: 03/04/2021 9:46 AM Note Text: Radiology Service Progress Note PATIENT NAME: Parviz Tracy DATE OF SERVICE: March 04, 2021 TIME: 9:22 AM PATIENT IDENTITY VERIFICATION COMPLETED USING TWO (2) IDENTIFIERS: Name and Date of confirmed by patient verbally. FALL SCREENING: Has the patient had 2 falls in the last year or 1 fall with injury or currently using an Ambulatory Assistive Device (Walker, Cane, Wheelchair, Crutches, etc.)? No PATIENT GENDER DATA: Female. status: : No status: NO. PATIENT RELEVANT IMPLANT DATA REVIEWED: Not Applicable RADIOLOGY DEPARTMENT: Bone Density PERIPHERAL IV DATA: Not applicable SIGNED BY: Jackelyn Calvillo March 04, 2021 9:22 AM [facility] documented as of this encounter (statuses as of 02/17/2022) [facility]06[facility] History of Past illness Narrative* Problem Noted Date Resolved Date Open wound(s) (multiple) of unspecified site(s), without mention of complication 05/12/2007 04/28/2012 BCC///MALIG NEOPLASM SKIN FACE NEC 04/21/2007 09/03/2015 Other acne 04/21/2007 09/03/2015 Sebaceous cyst 04/21/2007 09/03/2015 Neoplasm of uncertain behavior of skin 7 04/28/2012 Benign neoplasm of skin of o ther and unspecified parts of face 03/18/2007 09/03/2015 SOLAR LENGINES/DYSCHROMIA OTHER 03/18/2007 09/03/2015 Other chronic dermatitis due to solar radiation 03/18/2007 09/03/2015 documented as of this encounter (statuses as of 02/18/2022) [facility] Future Scheduled Tests Laboratory* Basic Metabolic Panel 02/25/23 * Lipid Profile 02/25/23 * N-Terminal proBNP 02/25/23 [facility] Evaluation note* Diagnosis Encounter for gynecological examination (general) (routine) without abnormal findings Encounter for screening mammogram for breast cancer documented in this encounter [facility] Diagnosis Encounter for gynecological examination (general) (routine) without abnormal findings Encounter for screening mammogram for breast cancer documented in this encounter [facility] course Narrative No data available for this section [facility] Hospital Discharge instructions No data available for this section [facility] Note* CHADD SABILLON MD: SIGN, VERIFY Event Display: Echocardiogram Complete w/Strain (AOH) Authored Date: [facility] Progress note No data available for this section [facility] Reason for referral (narrative)* Diagnostic Procedure Only (Routine) - Pending Review Specialty Diagnoses / Procedures Referred By Contac t Referred To Contact [facility] Diagnoses Encounter for gynecological examination (general) (routine) without abnormal findings Encounter for screening mammogram for breast cancer Procedures COLLEEN SCREENING W MALACHI SCREENING DIGITAL BREAST TOMOSYNTHESIS BI SCREENING MAMMOGRAPHY BI 2-VIEW BREAST INC CAD Alice Lofton MD [address] [place] [id number] [facility] [address] [place] [id number] Referral ID Status Reason Start Date Expiration Date Visits Requested Visits Authorized [id number] Pending Review Auto-Generat ed Referral 02/17/2022 03/19/2023 1 1 [facility] Summary Purpose Family History No Family History Records Found No data available for this section No Family History Records Found Advance Directives No Advanced Directives Records FoundNo Advanced Directives Records Found Additional Source Comments Source Comments (unrecognize d section and content) In the event this informatio n is protected by the Federal Confidentiality of Alcohol and Drug Abuse Patient Records regulations: The Federal rules restrict any use of the information to criminally investigate or prosecute any alcohol or drug abuse patient.[facility] the event this information is protected by the Federal Confidentiality of Alcohol and Drug Abuse Patient Records regulations: The Federal rules restrict any use of the information to criminally investigate or prosecute any alcohol or drug abuse patient.[facility] Care Teams (unrecognized sec tion and content) Ophthalmic Assistant Relationship Specialty Start Date End Date Pedro Simon MD [address] [place] [id number] PCP - General Family Practice 11/27/10 INFORMATION SOURCE (unrecogn ized section and content) DATE CREATED AUTHOR AUTHOR'S ORGANIZ ATION 08/28/2023 On license of [facility] ([place]) FOR RECORDS PERTAINING TO PATIENTS WHO ARE OR HAVE BEEN ENROLLED IN A CHEMICAL DEPENDENCY/SUBSTANCEABUSE PROGRAM, SOME INFORMATION MAY BE OMITTED. This clinical summary was aggregated from multiple sources. Caution should be exercised in using it in the provision of clinical care. This summary normalizes information from multiple sources, and as a consequence, information in this document may materially change the coding, format and clinical context of patient data. In addition, data may be omitted in some cases. CLINICAL DECISIONS SHOULD BE BASED ON THE PRIMARY CLINICAL RECORDS. [facility]. provides no warranty or guarantee of the accuracy or completeness of information in this document.
== END | disposition home or self-care (01) ==
LOC: OPBD 09:02
PROVIDERS: PCP Family Medicine; Referring Provider Family Medicine; Visit Provider Family Medicine
DX: Z78.0 Asymptomatic menopausal state (principal)
CPT/HCPCS: 77080

== ENCOUNTER → 2024-02-19 | Outpatient (CLI) | payer MEDICARE, BC, SELFPAY ==
--- NOTE | 2024-02-19 07:57 | CT_ITS ---
STUDY: CT RIGHT SHOULDER WITHOUT CONTRAST REASON FOR EXAM: Female, 74 years old. Preoperative evaluation for shoulder replacement. RADIATION DOSAGE (If Supplied By Facility): CTDIvol = ( 33.59 ) mGy, DLP = ( 699.84 ) mGycm TECHNIQUE: Contiguous axial images of the right upper extremity/shoulder were obtained without contrast. Coronal and sagittal reconstruction and bone and soft tissue algorithm images were provided for interpretation.. Individualized dose optimization techniques were used for this CT. COMPARISON: None. FINDINGS: Osteopenia. Moderate to severe arthrosis of the glenohumeral joint with marked osteophyte formation. Multiple intra-articular osteochondral bodies within the glenohumeral joint and within the axillary pouch, the largest of which measures 11 mm in diameter. Mild arthrosis of the AC joint. Normal visualized muscles and soft tissue structures. CT/Extremity Upper without Contra IMPRESSION: Osteopenia with moderate to severe arthrosis of the glenohumeral joint. Mild arthrosis of the AC joint. Multiple intra-articular osteochondral bodies in the glenohumeral joint. No acute abnormality. Electronically Signed: Owen Acosta MD at 10:26 EDT ,
== END | disposition home or self-care (01) ==
LOC: CT 07:53
PROVIDERS: PCP Family Medicine; Visit Provider Specialist
DX: M19.011 Primary osteoarthritis, right shoulder (principal)
CPT/HCPCS: 73200

== ENCOUNTER → 2024-02-24 | Outpatient (CLI) | payer MEDICARE, BC, SELFPAY ==
--- NOTE | 2024-02-24 09:11 | US_ITS ---
STUDY: THYROID ULTRASOUND REASON FOR EXAM: Female, 74 years old. History of thyroid nodules. TECHNIQUE: Ultrasound evaluation of the thyroid was performed with real-time and static joseph-scale imaging. COMPARISON: Comparison is made with prior study dated March 19, 2023. FINDINGS: RIGHT LOBE: The right lobe of the thyroid gland measures 4.4 cm x 1.9 cm x 1.7. cm. There is a homogeneous echotexture. Once again, there are multiple small cystic nodules with septations. The largest nodule measures 5 mm x 4 mm x 4 mm. This has decreased slightly in size. LEFT LOBE: The left lobe of the thyroid gland measures 4.1 cm x 1.5 cm x 1.9 cm. There is a heterogeneous echotexture. 3 nodules are seen. There is a complex nodule measuring 1.3 cm x 1.2 cm x 1 cm in the mid to lower portion of the left lobe. This has decreased in size. There is also evidence of a septated complex nodule in the midportion. This is unchanged. ISTHMUS: The isthmus measures 3 mm. The regional lymph nodes are normal. US/Thyroid IMPRESSION: Essentially stable examination. Electronically Signed: Bashir Crenshaw MD at 14:36 EDT ,
== END | disposition home or self-care (01) ==
LOC: US 09:11
PROVIDERS: PCP Family Medicine; Referring Provider Surgery; Visit Provider Surgery
DX: E04.2 Nontoxic multinodular goiter (principal)
CPT/HCPCS: 76536

== ENCOUNTER 2024-03-16 14:45 | Observation (INO) | payer MEDICARE, BC, SELFPAY ==
--- NOTE | 2024-02-19 07:54 | EKG12_ITS ---
Test Reason : PREOP Blood Pressure : / mmHG Vent. Rate : 061 BPM Atrial Rate : 061 BPM P-R Int : 166 ms QRS Dur : 120 ms QT Int : 436 ms P-R-T Axes : 021 -49 008 degrees QTc Int : 438 ms Normal sinus rhythm Left anterior fascicular block Left ventricular hypertrophy with QRS widening Abnormal ECG Confirmed by SHAYNE SNOWDEN, MARY ([id number]), school photograph editor SPENSER HUNTER ([id number]) on 02/19/2024 1:01:06 PM Referred By: ESPERANZA Confirmed By:MARY BELLA MD
[2024-02-19 08:51] LABS: Hematocrit 47.7 % (37-47); Hemoglobin 15.7 g/dL (12.0-15.0); Mean Corp Hgb Conc 32.9 g/dL (32-36); Mean Corpuscular Hgb 30.4 pg (27.0-32.0); Mean Corpuscular Volume 92.3 fL (81-99); Mean Platelet Vol. 9.6 fl (6.2-12.0); Platelet Count 249 K/mm3 (150-450); RBC Distribution Width CV 13.6 % (11.6-14.6); RBC Distribution Width SD 46.5 fl (35.1-43.9); Red Blood Count 5.17 M/mm3 (4.2-5.4); White Blood Count 7.6 K/mm3 (4.4-11.0)
[2024-02-19 09:18] LABS: Albumin, Serum 3.5 g/dL (3.2-5.0); Anion Gap 5 (5-15); BUN 16 mg/dL (7-18); BUN/Creat Ratio 17.3 RATIO (10-20); Calcium,Total 9.2 mg/dL (8.5-10.1); Chloride 108 mmol/L (98-107); Creatinine, Serum 0.92 mg/dL (0.55-1.02); EST Glomerular Filtration Rate 64 mL/min (>60); Est Glom Filt Rate - Afr Amer 77 mL/min (>60); Glucose 93 mg/dL (74-106); Potassium 3.9 mmol/L (3.5-5.1); Sodium Level 140 mmol/L (136-145)
[2024-02-19 09:35] LABS: Magnesium 2.4 mg/dL (1.6-2.6); Thyroid Stim Hormone (TSH) 1.54 uIU/mL (0.358-3.74)
--- NOTE | 2024-03-07 12:57 | PCM.HP.BLA ---
History and Physical History and Physical? Patient Name: Bessy Tracy : 1950 From:? ISMAEL AGRAWAL PA-C? DATE OF PRE-OPERATIVE EXAM: 03/07/2024 DATE OF SURGERY:? 03/16/2024 SCHEDULED PROCEDURE:? Reverse right total shoulder arthroplasty HISTORY OF PRESENT ILLNESS: Preoperative history and physical exam was performed on March 07, 2024.? This is a 74-year-old female who has been having ongoing bilateral shoulder pain for over 6 years.? She was being treated conservatively.? She is right-hand dominant.? Her pain is diffusely throughout the right shoulder.? She has difficulty with activities of daily living that require any overhead use or reaching behind her body.? She has difficulty getting dressed and undressing herself due to the pain.? Also difficulty with regular hygiene activities such as washing her hair.? 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 There is been no trauma or injury.? She has attempted previous conservative measures including Tylenol, carpal take care, and massive therapy.? She denies any numbness and tingling in the bilateral upper extremities.? Patient has medical history pertinent for supraventricular tachycardia, history of multiple blood clots in the past currently on Coumadin, sleep apnea, degenerative disc disease, history of atrial fibrillation, hypothyroid, congestive heart failure, macular degeneration.? She denies any recent chest pain, shortness of breath, fevers chills or recent infections.? After failing conservative measures and discussing all treatment options with Dr. Dat [place], the patient does wish to proceed with a right reverse total shoulder arthroplasty.? We have obtain surgical clearance from the primary care provider Dr. Simon and gis specialist Dr. Brand. REVIEW OF SYSTEMS: Review Of Systems: Constitutional: Reports difficulty sleeping, but denies anorexia, change in appetite, fever and weight change. Cardiovasular: Denies chest pain, heart murmur, irregular heartbeat and peripheral vascular disease. Respiratory: Reports sleep apnea and shortness of breath, but denies asthma, cough, pneumonia, tuberculosis and wheezing. Gastrointestinal: Reports diarrhea, but denies constipation, heartburn, nausea, rectal itching, bloody stools and vomiting. Genitourinary: Denies incontinence. Musculoskeletal: Reports trouble walking and weakness, but denies leg swelling and pain. Skin: Reports history of shingles, but denies Raynaud's and tattoo. Neurological: Reports numbness/tingling and tremor but denies ambulatory dysfunction and dizziness. Psychiatric: Reports insomnia, but denies anxiety, depression, mental illness and stress. Hematologic/Lymphatic: Denies anemia, bleeding/bruising tendency and past transfusion. Reviewed, no changes. PAST MEDICAL HISTORY: Advance Care Plan: Other Directive, living will Effective Date: 12/13/2020 Other Directive, POA Effective Date: 08/22/2022 Past Medical History: Medical Problems: Melanoma, Vocal Chord Disfunction, Superventricular Tachycardia, Diastolic Disfuntion, Blood Clots Sleep Apnea - Central? Degenerative Disc Disease, Osteopenia, Basal Cell Carcinoma Covid-19 Vaccine - 01/23/21 & 02/20/21 Hypothyroidism, Afib, Squamous Cell Carcenoma, Alopecia, Gum Disease, Congestive Heart Failure (CHF), Dry macular degeneration Accidents: None Surgical Hx: Tonsillectomy, [place] Teeth, D & C, Tubal Ligation Shoulder Arthroscopy LT - ROTATOR CUFF SURGERY - DR BETANCUR @[facility] Lumbar Micro Surgery? Bulging Disc - DR SANJUANA RICKETTS @ [facility] Moh's Surgery - FOR BASAL CELL, SKIN CA @ [facility] Moh's Surgery - FOR MELANOMA (TWICE) Lumpectomy - (2010) RT BREAST RT TKR - (08/08/2020) SAW @ [facility] Cataracts - BILAT Left Carpal Tunnel Release - (07/25/2022) SAW @ [facility] Right Carpal Tunnel Release - (08/08/2022) DR. CUBA @ [facility] Biopsy on thyroid - (04/05/2023) [facility] Anesthesia Complications: Vomiting, Nausea, Hypotension, Trouble Waking Up Assistive Devices: Cpap Reviewed, no changes. SOCIAL HISTORY: Social History: Marital: .Occupation: Retired.Work Status: Retired.Hand Dominance: Right-handed. Personal Habits:? Cigarette Use: Never Smoked Cigarettes.Smokeless Tobacco: Never Used Smokeless Tobacco.E-Cigarette Use: Never used.Alcohol: Denies use.Drug Use: Denies Use.Enjoy Exercising: Exercises 1-3 x/month. Reviewed, no changes. VITALS: Ht: 64.1 Wt: 249lb Wt k.946 BMI: 42.6 BP: 118/72 Pulse: 70 Resp: 15 T: 97.2 T: 36.2C Pain Level: 7 O2SatR: 95 ALLERGIES: Sulfa - Rash Atenolol Adhesives Disposable Stitches - chromic gut and monocryl? MEDICATIONS: Amoxicillin 500 mg 4 tablets one hour prior to procedure, Biotin 5000 mcg 1po tid, Warfarin Sodium 4 mg 1 by mouth every day, Furosemide 20 mg 1po bid, Magnesium 250 mg 1po qday, Vitamin D3? 1po qday, Diltiazem HCL 120 mg 1-2 day, Metoprolol Succinate ER 25 mg 1 by mouth every day, Euthyrox 75 mcg 1 by mouth every day, Clobetasol Propionate 0.05 % apply twice daily for up to 2 weeks to the affected areas on the ... (refer to, Calcium + D? 1po qday, Probiotic? 1po qday, Spironolactone 25 mg 1 by mouth every day PRE-OP EXAM:? General appearance:NORMAL? ? ? Other: Eyes: Conjunctivae and lids: NORMAL? Pupils: ERR Ears, Nose, Mouth, and Throat: NORMAL? Other: Inspection of lips, teeth and gums: NORMAL? ?Other: Neck: Examination of neck: no masses noted. Respiratory: Assessment of respiratory effort: NORMAL? ?Other: ?Auscultation of lungs: clear to auscultation no wheezes, rhonchi or rales. Cardiovascular:? Auscultation of heart: regular rate and rhythm, no murmurs, gallops or rubs. PHYSICAL EXAMINATION: On exam of the right shoulder she has tenderness to palpation over the anterior and lateral shoulder.? She has difficulty reaching behind her body with internal rotation to right buttock, Rotation 40, and Forward Elevation Actively 90.? She Has Pain Associated with All Range Of Motion.? Sensation Intact to Light Touch. IMAGING STUDIES: Previous x-rays of the right shoulder reveal severe [id number]-[id number] glenohumeral joint space narrowing, subchondral sclerosis, osteophyte formation consistent with severe stage IV glenohumeral osteoarthritis. IMPRESSION: 1.? Severe right shoulder glenohumeral osteoarthritis 2.? Congestive heart failure 3.? Sleep apnea 4.? History of DVTs: Currently on Coumadin 5.? History of melanoma 6.? Vocal cord dysfunction 7.? Supraventricular tachycardia 8.? Degenerative disc disease 9.? Hypothyroidism 10.? Macular degeneration 11.? Morbid obesity with BMI 42.6 PLAN: Dr. Dat Cuba did discuss and review with the patient all treatment options including surgical versus nonsurgical options.? Patient does wish to proceed with the above-stated procedure.? Potential risks, benefits, and complications of the procedure were discussed in detail including but not limited to , infection, nerve and blood vessel damage, persistent pain, numbness, tingling, paresthesias, blood clot, pulmonary embolism, and requirement for possible further surgery.? The patient expressed full understanding and has no further questions for the doctor.? Patient does agree to proceed with the above-stated procedure and has signed the surgery consent form. POST-OP MEDICATION PLAN: Pain Medications: Postoperative pain regimen will be initiated by Dr. Dat Cuba in the hospital.? She has been instructed by the primary care provider and gis specialist to stop the Coumadin 5 days prior to surgery.? This will be resumed on postoperative day #1.? I also advised the patient that she must have planned set forth with her primary care physician for INR checks postoperatively. DVT Prophylaxis: Patient will resume Coumadin postoperatively on day 1 This dictation was created using voice recognition software. Phonetic and/or grammatical errors may exist. ___? I have re-examined the patient.? There are no clinical changes since date of exam. ___? See progress notes for changes. ___? Dictated on admission Date: ? ? ?Time: Signature:
[2024-03-16] VITALS (15 sets, daily range): BP systolic 86–130; BP diastolic 45–78; PULSE 62–79; RESP 16–18; TEMP 36.1–37; O2SAT 92–96; BMI 42.7
--- NOTE | 2024-03-16 | SHO_PTH ---
PATIENT: PARVIZ FARNSWORTH LOC: MS3 U#:[id number] AGE/SX: 74/F ROOM: [facility] RE03/16/[address]: Dr. Dat Cuba MD : 1950 BED: 1 DIS: 03/17/2024 SPEC #: [id number] RECD: 03/16/24 16:22 STATUS: JOSE A RERosalba #: [id number] CLAUDIA: 03/16/24 00:[address]: Dat Cuba DEPT: SURGICAL PATHOLOGY RECD BY: Johann Musa ENTERED: 03/17/24 13:29 SP TYPE: HUMERUS OTHR DR: MD Dr. Abrahan Fritz DO Dr. Kathryn Lee, DO Tissues: Humerus, NOS Procedures: Decalcification bone/plaque Surgery Specimen Level IV HEADER OPERATION: ERAS, reverse right total shoulder arthroplasty PRE-OP DIAGNOSIS: Severe right shoulder glenohumeral osteoarthritis TISSUE SUBMITTED: Right humeral head MICROSCOPIC DIAGNOSIS Bone and tissue of right shoulder, total shoulder replacement: Severe degenerative joint disease. AM: 03/23/2024 MICROSCOPIC DESCRIPTION Slides are reviewed. GROSS DESCRIPTION Received is one container labeled with the patient's name and designated bone and soft tissue. The specimen consists of a humeral head measuring 5.5 x 5.0 x 2.5 cm. The articular surface shows areas of erosion and osteophyte formation. Soft tissue predominantly consists of fibrocartilaginous tissue and measures in aggregate 6.0 x 2.0 x 0.5cm. Director Agricultural Services sections are submitted in two cassettes as follows: 1 - soft tissue, 2 - humeral head after decalcification. / SJ: 03/17/24 TC:5 [facility]: [id number], [id number]
[2024-03-16 08:55] LABS: Prothrombin Time Fingerstick 21.3 SEC (11.7-14.9)
[2024-03-16 09:33] LABS: International Normalized Ratio 1.1; Prothrombin Time (Protime)PT. 14.3 SECONDS (11.7-14.9)
[2024-03-16] MEDS: Vancomycin HCl 1,750 MG in 0.9% Normal Saline (500mL Bag) 500 ML 167 MG IV (09:39)
[2024-03-16] MEDS: Magnesium 1 GM over 15 mins IV (09:39)
[2024-03-16] MEDS: Lactated Ringers 1,000 ML 999 ML IV (09:40)
[2024-03-16 09:47] LABS: Bedside Glucose 76 mg/dL (74-106)
[2024-03-16] MEDS: Gabapentin 600 MG Tablet PO (10:04)
[2024-03-16] MEDS: Acetaminophen 500 MG Tablet 1000 MG PO ×2 (10:05→22:18)
[2024-03-16] MEDS: Cefazolin 2 GM in 0.9% Normal Saline (100mL Bag) 100 ML IV (12:14)
[2024-03-16] MEDS: dexAMETHasone 10 MG/ML Vial IV (12:16)
[2024-03-16] MEDS: TRANEXAMIC ACID 2,000 MG, 0.9% Normal Saline (100mL Bag) 100 ML OPERA.SITE (13:07)
--- NOTE | 2024-03-16 13:07 | OP.PCM_ITS ---
Report of Operation Date of Procedure: 03/16/24 Pre-Operative Diagnosis: Right shoulder osteoarthritis, rotator cuff dysfunction Post-Operative Diagnosis: Right shoulder osteoarthritis, rotator cuff dysfunction Surgery/Procedure Performed:: Right reverse total shoulder replacement Description of Surgical Findings:: Stable shoulder Surgeon: Dat Cuba respiratory therapy instructor: Jeramy Munoz Type of Anesthesia: General Anesthesiologist: Kervin Padilla Special Medications: 2 g Ancef, 1 g TXA at incision, 1 g TXA closure, 10 mg Decadron, joint cocktail (5 mg Duramorph, 30 mL of 0.5% Ropivicaine, 1000 units of epinephrine, 30 mg of Toradol) Estimated Blood Loss (mL): 200 Fluids Replaced: 1200 Description of Procedure: Components used 1. Tornier 25 mm +3 mm glenoid baseplate 2. Tornier perform 36 mm Glenosphere 3. Tornier 36mm, 0mm humeral liner 4. Tornier perform reverse TSA humeral stem primary press-fit 2+ size Brief history/Operative indications: 74 yo F with history of R shoulder pain and cuff tear arthropathy. Patient failed conservative measures as mentioned in the H&P. After discussion of risk and benefits of reverse total shoulder replacement including but not limited to blood loss, DVTs, PEs, nerve vessel damage, infection, general risk of anesthesia including loss of life, instability and stiffness patient demonstrating understanding wish to proceed was able to sign informed consent. Medical clearance was obtained. Procedure: On the date of the procedure, patient's R upper extremity was marked in the preoperative area. Patient was taken back to the operating room where they were placed on the table in the supine position. Anesthesia assumed control of the C-spine and airway, then administered anesthetic. All bony prominences were identified well-padded, the head was secured and the patient was placed in the beachchair position at about 35? inclination. Anesthesia remained in control of the C-spine airway throughout the remainder of the procedure. Patient was then appropriately fastened to the table and the R upper extremity was prepped in a sterile fashion. The surgeons then scrubbed. Upon reentering the room, the R upper extremity was draped in a sterile fashion and the incision was marked out. Timeout was called, everyone agreed upon the side, the site, the procedure to be performed, patient identity and antibiotics given. Incision was taken down through skin and subcutaneous tissue, fat down to fascia. The stripe of the deltopectoral interval and cephalic vein were identified and blunt dissection was used to retract the deltoid. The cephalic vein was retracted laterally. Clavipectoral fascia was then incised and a cobra retractor was placed in the wound. The proximal one third of the pectoralis major insertion was released. Pectoralis tendon insertion was used to tenodesed the biceps tendon which was identified in the bicipital groove. Tenodesis was done with #1 Vicryl. Proximally we followed the biceps tendon after transecting it into the rotator interval. The rotator interval was split and the arm was externally rotated. The split was 1 cm medial to the bicipital groove. Subscapularis tendon was released. We released down the anterior portion of the humeral head and a hart elevator was used to release the inferior portion of the humeral head. The arm was externally rotated and the shoulder was dislocated. The humeral head was then cut at its natural retroversion. Once his humeral head cut was made humerus was retracted out of the way and the glenoid was exposed. After exposing the glenoid, the labrum and the remaining proximal biceps were debrided. At this time we are able to view the entire outer edge of the glenoid. A central pin was placed we sequentially reamed over this central pin to 25mm. Once this was completed the central screw was measured and found to be. The glenoid baseplate was screwed into place. Wound was closely irrigated out with normal saline we then drilled sequentially for 2 screws. Screws were placed superiorly and inferiorly and tightened down the screws. Once the screws were appropriately tightened into place the glenoid baseplate was compressed against the exposed subchondral bone. A 36mm glenosphere was impacted into place engaging the Casillas taper. Attention was then turned towards the humerus. The humerus was again externally rotated exposing the proximal portion of the humerus. Central canal finder was then used to open up the canal. We reamed to a 2mm reamer. We then broached to a 2+ stem. We trialed the 0mm liner. We obtained an adequate reduction at this time with a nice stable shoulder. Good internal rotation to the gluteus, forward elevation to 140?, external rotation to 20?. Final components were then assembled on the back table, trials were removed and the wound was copiously irrigated with normal saline after dislocating the shoulder. Once the final components were assembled they were impacted into place. Shoulder was then reduced and found to be stable with good range of motion. Subscapularis tendon was repaired with #2 FiberWire. The wound was with chlorhexidine solution then copiously irrigated out with a 1 L normal saline lavage. The deltopectoral fascia was then closed using #1 Vicryl skin was closed using 2-0 Vicryl interrupted sutures and final skin closure was done with 3-0 Monocryl. Steri- Strips are placed for final skin closure. Sterile dressing was placed patient was then placed in a sling and awakened by anesthesia. Patient was then transferred to the PACU for recovery. Postoperative plan: Patient will be admitted to the hospital overnight. They will get physical therapy starting in 2 weeks with normal postoperative regimen. Patient will be placed on [] for DVT prophylaxis. The first postoperative appointment will be in 2 weeks for wound check and initiation of phase 1 physical therapy. Patiently placed on doxycycline postoperatively due to BMI greater than 40 but less than 45. During the course of the procedure the physician manufacturing assistant played a vital role. His intimate knowledge of my steps in the procedure aided in safe and expedient completion of the procedure. The PA played a vital rolls in positioning particularly in obtaining the appropriate beach chair position and securing the patient's body and head to the table. The PA was also vital in the retraction of soft tissues during the exposure and especially the glenoid work as this is a vital part of the procedure to prevent neurovascular damage. the PA was also vital and protecting soft tissues during times of bony cuts and reaming. He also played a vital role in closure with my direct supervision. The PA was also important during reduction and dislocation of the joint and trials intraoperatively. Complications No intraoperative complications Admit VTE Documentation VTE Present on Admission: No VTE Mechan Device Prophylaxis: SCD's VTE Pharm Prophylaxis ordered?: Yes
[2024-03-16] MEDS: Lactated Ringers 1,000 ML 125 ML IV (14:00)
--- NOTE | 2024-03-16 14:30 | RAD_ITS ---
STUDY: X-RAY - RIGHT SHOULDER REASON FOR EXAM: Female, 74 years old. Post op -- AP and Lateral X-Ray of operative shoulder in PACU TECHNIQUE: 2 view(s) of the shoulder. COMPARISON: None. FINDINGS: The patient is status post right reverse shoulder replacement. There is good alignment. Postoperative soft tissue changes. RAD/Shoulder min 2 Views IMPRESSION: The patient is status post reverse shoulder replacement. There is good alignment. Postoperative soft tissue changes. Electronically Signed: Bashir Crenshaw MD at 14:44 EDT ,
--- NOTE | 2024-03-16 16:28 | SUR.PHASEI ---
delay in transport to the [facility] / [facility] 3 due pt on bedside commode for extended period of time.
[2024-03-16] MEDS: Aspirin 81 MG TAB.CHEW PO (16:50)
--- NOTE | 2024-03-16 17:19 | PCM.PN.HOSP ---
Reason for Visit Reason for Visit: Diagnoses Primary osteoarthritis, right shoulder (03/16/24) Encounter for other preprocedural examination (03/16/24) longterm (current) use of anticoagulants (03/16/24) Other buttermaker continuous churn (current) drug therapy (03/16/24) Subjective Subjective Consult requested by Dr. Cuba for postoperative medical management. Patient feeling slightly groggy today but otherwise okay. Denies any significant pain in her right arm at present. Objective Data Objective Data Vital Signs: Vital Signs Temp Pulse Resp BP Pulse Ox O2 Del Method O2 Flow Rate 36.3 C L 68 18 130/68 H 96 Nasal Cannula 4 03/16/24 16:24 03/16/24 16:24 03/16/24 16:24 03/16/24 16:24 03/16/24 16:24 03/16/24 16:24 03/16/24 16:24 Oxygen Flow Rate (L/min) 4 Oxygen Delivery Method Nasal Cannula Weight: 112.9 kg Body Mass Index (BMI) 42.7 Intake & Output: Intake and Output for Last 24 Hours 03/14/24 03/15/24 03/16/24 23:59 23:59 23:59 Intake Total 2134.08 / 2134.08 Balance 2134.08 / 2134.08 Lab / Micro Data 02/19/24 08:35 02/19/24 08:35 Labs: Laboratory Results - last 24 hr 03/16/24 08:53: POC PT 21.3 H, INR 2.0 03/16/24 09:17: PT 14.3, INR 1.1 03/16/24 09:24: POC Glucose 76 Micro: Microbiology 02/19/24 08:35 Swab (Method) Nasal Screen MRSA/MSSA - Final Radiography Diagnostic Testing: Radiology Impression Shoulder X-Ray 03/16/24 14:30 IMPRESSION: The patient is status post reverse shoulder replacement. There is good alignment. Postoperative soft tissue changes. Electronically Signed: Bashir Crenshaw MD at 14:44 EDT , Physical Exam Const alert and no apparent distress HEENT head/scalp atraumatic and moist oral mucous membranes Resp normal respiratory effort, no retractions, no use of accessory muscles and clear to auscultation bilaterally Cardio regular rate, regular rhythm, S1 normal heart sound and S2 normal heart sound Extremity Extremity Narrative: Right arm in immobilizer. Assessment & Plan Assessment/Plan (1) Atrial fibrillation: PLAN: Plan Atrial fibrillation Currently rate controlled Continue with diltiazem and warfarin Monitor INR Status post right reverse total shoulder replacement Management per orthopedics On VTE prophylaxis with aspirin twice daily. Would discontinue that once the INR is therapeutic at 2 or greater. Hypothyroidism: Continue with levothyroxine Thank you for the consult. The hospitalist service will follow along during the hospitalization. Charges/Coding Visit Charges Inpatient E&M: 71815 Subs Hosp L2
[2024-03-16] MEDS: Ondansetron 4 MG/2 ML Vial IV (20:46)
[2024-03-16] MEDS: 0.9% Saline Lock 10 ML Syringe IV (20:46)
[2024-03-16] MEDS: Cefazolin 1 GM/50 ML BAG IV (20:51)
[2024-03-16] MEDS: Doxycycline 100 MG CAPSULE PO (22:18)
[2024-03-16] MEDS: Senna/Docusate Sodium 1 Tablet 2 TABLET PO (22:18)
[2024-03-17] VITALS (7 sets, daily range): BP systolic 113–129; BP diastolic 67–91; PULSE 60–75; RESP 16–18; TEMP 36.2–36.6; O2SAT 94–100
[2024-03-17] MEDS: Levothyroxine 75 MCG Tablet PO (04:17)
[2024-03-17] MEDS: Cefazolin 1 GM/50 ML BAG IV (04:17)
[2024-03-17] MEDS: 0.9% Saline Lock 10 ML Syringe IV (05:10)
[2024-03-17] MEDS: Acetaminophen 500 MG Tablet 1000 MG PO (05:10)
[2024-03-17] MEDS: oxyCODONE 5 MG Tablet PO ×2 (06:45→11:25)
[2024-03-17 07:25] LABS: Hemoglobin 15.6 g/dL (12.0-15.0); Mean Corp Hgb Conc 33.2 g/dL (32-36); Mean Corpuscular Hgb 30.8 pg (27.0-32.0); Mean Corpuscular Volume 92.7 fL (81-99); Mean Platelet Vol. 9.7 fl (6.2-12.0); Platelet Count 263 K/mm3 (150-450); RBC Distribution Width CV 14.1 % (11.6-14.6); RBC Distribution Width SD 47.8 fl (35.1-43.9); Red Blood Count 5.07 M/mm3 (4.2-5.4); White Blood Count 15.2 K/mm3 (4.4-11.0)
[2024-03-17 07:37] LABS: Anion Gap 8 (5-15); BUN 11 mg/dL (7-18); BUN/Creat Ratio 14.2 RATIO (10-20); Chloride 106 mmol/L (98-107); Creatinine, Serum 0.78 mg/dL (0.55-1.02); EST Glomerular Filtration Rate 78 mL/min (>60); Est Glom Filt Rate - Afr Amer 94 mL/min (>60); Estimated Creatinine Clearance 78.25 ml/min; Glucose 139 mg/dL (74-106); Potassium 3.7 mmol/L (3.5-5.1); Sodium Level 139 mmol/L (136-145)
[2024-03-17 08:09] LABS: International Normalized Ratio 1.2; Prothrombin Time (Protime)PT. 14.9 SECONDS (11.7-14.9)
[2024-03-17] MEDS: Famotidine 20 MG Tablet PO (08:26)
[2024-03-17] MEDS: Calcium Carb/Vitamin D 1 TABLET Tablet PO (08:27)
[2024-03-17] MEDS: Lactobacillis Acidophilus 1 CAP PO (08:27)
[2024-03-17] MEDS: Magnesium Chloride 64 MG Delay Rel.Tablet 128 MG PO (08:27)
[2024-03-17] MEDS: Senna/Docusate Sodium 1 Tablet 2 TABLET PO (08:27)
[2024-03-17] MEDS: Cholecalciferol (VIT D3) 25 MCG TABLET (1,000 UNITS) PO (08:27)
[2024-03-17] MEDS: Glycerin/Hypromellose/PEG400 15 ml Bottle 1 DRP EACH EYE (08:28)
[2024-03-17] MEDS: dilTIAZem CD 120 MG Capsule PO (09:33)
[2024-03-17] MEDS: Doxycycline 100 MG CAPSULE PO (09:33)
[2024-03-17] MEDS: Metoprolol(XL)Succ 25 MG Tablet PO (09:33)
--- NOTE | 2024-03-17 09:33 | PCM.PN.ORT ---
Subjective Subjective The patient was sitting in bedside chair eating upon examination. Patient denies any chest pain, shortness of breath, dizziness, lightheadedness, nausea or vomiting, or calf pain. Patient states she struggled yesterday with just not feeling well and pain. She feels the block is worn off. Medications are helpful. Patient does have sleep apnea which she uses a CPAP. She is currently on room air. She has been working on the incentive spirometer. She denies any numbness and tingling in the right upper extremity. Therapy has already worked with patient today. She is wishing to go home today. Objective Data Objective Data Vital Signs: Vital Signs Temp Pulse Resp BP Pulse Ox O2 Del Method O2 Flow Rate 97.9 F 75 18 129/76 H 97 Room Air 4 03/17/24 09:13 03/17/24 09:13 03/17/24 09:13 03/17/24 09:13 03/17/24 09:13 03/17/24 09:13 03/17/24 08:07 Oxygen Flow Rate (L/min) 4 Oxygen Delivery Method Room Air Weight: 112.9 kg Body Mass Index (BMI) 42.7 Intake & Output: Intake and Output for Last 24 Hours 03/15/24 03/16/24 03/17/24 23:59 23:59 23:59 Intake Total 2184.08 / 2184.08 50 / 50 Output Total 1000 / 1000 Balance 2184.08 / 2184.08 -950 / -950 Lab / Micro Data 03/17/24 05:51 03/17/24 05:51 Labs: Laboratory Results - last 24 hr 03/16/24 09:17: PT 14.3, INR 1.1 03/16/24 09:24: POC Glucose 76 03/17/24 05:51: WBC 15.2 H, RBC 5.07, Hgb 15.6 H, Hct 47.0, MCV 92.7, MCH 30.8, MCHC 33.2, RDW Std Deviation 47.8 H, RDW Coeff of Gallo 14.1, Plt Count 263, MPV 9.7, PT 14.9, INR 1.2, Sodium 139, Potassium 3.7, Chloride 106, Carbon Dioxide 25.0, Anion Gap 8, BUN 11, Creatinine 0.78, Estim Creat Clear Calc 78.25, Est GFR (MDRD) Af Amer 94, Est GFR (MDRD) Non-Af 78, BUN/Creatinine Ratio 14.2, Glucose 139 H, Calcium 9.0 Micro: Microbiology 02/19/24 08:35 Swab (Method) Nasal Screen MRSA/MSSA - Final Radiography Diagnostic Testing: Radiology Impression Shoulder X-Ray 03/16/24 14:30 IMPRESSION: The patient is status post reverse shoulder replacement. There is good alignment. Postoperative soft tissue changes. Electronically Signed: Bashir Crenshaw MD at 14:44 EDT , Physical Exam Narrative Vital signs stable, afebrile Dressing is clean, dry, intact Ultra-sling fitting appropriately Sensation intact to axillary, radial, median, and ulnar distribution Motor intact to AIN, PIN, and ulnar nerve Const alert, oriented x3 and no apparent distress Assessment & Plan Assessment/Plan (1) Status post reverse total arthroplasty of right shoulder: PLAN: 1. S/P right reverse total shoulder arthroplasty POD #1 2. Continue Pain Medications: Tylenol and oxycodone. We are unable to use nonsteroidal anti-inflammatories due to Coumadin treatment 3. DVT Prophylaxis: Patient will resume her Coumadin today. 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 Patient was advised to make sure she is reaching out with her primary care provider who is managing so that she can get appropriate postoperative INR checks. She is advised to contact our office if having any complications with the right upper extremity. 4. PT/OT: Continue with UltraSling at all times except to come out for range of motion exercises of the elbow and pendulum exercise 3 times daily. No range of motion of the postoperative shoulder until outpatient physical therapy begins. Outpatient physical therapy will begin 2 weeks postoperatively after follow-up with [facility] with x-rays and incision check. 5. H & H: 15.6/47.0, asymptomatic. Stable and no need for further treatment. Patient is asymptomatic 6. Reactive leukocytosis: 15.2, Afebrile. Patient did receive Decadron intraoperatively. No clinical signs of infection. 7. Currently on doxycycline for 2 weeks postoperatively due to elevated BMI greater than 40.0. I discussed with the patient potential side effects of doxycycline including sensitivity to the sunlight and increased risk of skin burn. Recommend patient take appropriate precautions. Also recommend patient to take probiotic while on the antibiotic. Patient voiced understanding agreement. 8. Continue postoperative medical management per medicine: Case was discussed with medicine 9. Encouraged Incentive Spirometry: Patient does have history of sleep apnea and uses CPAP. Encouraged that she is using this postoperatively every night. Also recommended the incentive spirometer every hour while awake. 10. Disposition: Plan will be for discharge home today. Patient appears to be orthopedically stable and labs appropriate for discharge. Her pain has been controlled on medications. She would like her prescriptions E scribed to [facility]. We discussed all medications in great detail. She will follow-up per postoperative instructions. We did discuss her postoperative dressing in which she will remove 5 days postoperatively. She does have some tape allergy and if there are any complications from the dressing or Steri-Strips she will contact her office immediately. I have reviewed the [place] Automated Rx Reporting System (OARRS) report for this patient for refill pattern and other prescriber involvement as part of the appropriate surveillance for the provision of acute and chronic controlled medications. The report was requested and reviewed on the date of this entry and was considered in the prescribing process. This dictation was created using voice recognition software. Phonetic and/or grammatical errors may exist.
--- NOTE | 2024-03-17 09:43 | DCINST_ITS ---
Discharge Instructions Diet Discharge Diet: No restrictions Activity Discharge Activity: May Not Drive (No driving for 6 weeks postoperatively. Must also be off all narcotics at 6 weeks for driving.) May shower in (days): 1 (Dressing must be intact to skin. Turn dressing away from water.) Ice area for (Minutes): 20 (Every 1-2 hours while awake. Please place barrier between skin and ice pack.) Weight Bearing Status: No weight bearing (Postoperative upper extremity) Additional Activity Instructions:: Continue with UltraSling at all times. Please come out of UltraSling 3 times daily working on elbow range of motion and pendulum exercises. No range of motion of postoperative shoulder. Will begin outpatient physical therapy after 2-week scheduled follow-up. Dressing / Incision Call your doctor if your incision/area has: Continuous Slow Oozing, Sudden Increased Bleeding, Increased Pain/ Swelling, Increased Redness and Foul Smelling Discharge Call your doctor if you observe: Fever of 101 or Higher, Shortness of breath, Chest pain and Uncontrolled pain Remove Dressing in: 4 days (Okay to remove dressing on March 21, 2024) Additional Dressing/Incision Instructions:: Follow [facility] Post-op Instructions. Once postoperative dressing has been removed only use gentle soap and water over the incision. Do not use any ointments, Neosporin, salves, alcohol pads over the incision for 6 weeks postoperatively. Do not submerge underwater for 6 weeks postoperatively. Do NOT use alcohol with narcotic pain medication. Do NOT make important decisions while taking narcotic medication. If you have problems with taking your medication (rash, itching, nausea, etc.) call the office at once. Follow Up Care Test Results: Test results from this visit will be discussed in further detail at your follow- up appointment, if applicable. Discharge Plan Admission Admit Date/Time: 03/16/24 14:45 Attending Provider: Dat Cuba Primary Care Provider: Pedro Simon Consulting Providers: Abrhaan Silver; Saritha Sandoval Discharge Orders/Prescriptions Prescriptions: New acetaminophen 500 mg Tablet 1,000 mg PO TID Qty: 0 0RF Rx Instructions: Do not take more than 3000 mg Tylenol in a 24-hour period. doxycycline monohydrate 100 mg Capsule 100 mg PO BID 14 Days Qty: 28 0RF Rx Instructions: Take for 2 weeks postoperatively oxycodone 5 mg Tablet 5 - 10 mg PO Q4H PRN PRN (Reason: as needed or pain) 7 Days Qty: 42 0RF sennosides-docusate sodium [Stool Softener-Stimulant Laxat] 8.6-50 mg Tablet 2 tab PO BID 3 Days Qty: 12 0RF Rx Instructions: Take until first bowel movement, then as needed Continued L.acid,para-B.bifidum-S.therm 8 billion cell capsule 1 cap PO DAILY diltiazem HCl [DILT-XR] 120 capsule,ext.rel 24h degradable 120 mg PO DAILY warfarin 4 MG tablet 4 mg PO DAILY furosemide 20 MG tablet 40 mg PO DAILY biotin 5 MG tablet 5 mg PO DAILY cholecalciferol (vitamin D3) 2,000 UNIT capsule 1,000 unit PO DAILY magnesium oxide 400 MG tablet 250 mg PO DAILY levothyroxine [Euthyrox] 75 mcg tablet 75 mcg PO DAILY Patient Comments: TAKE 1 TABLET BY MOUTH ONCE DAILY metoprolol succinate 25 mg tablet extended release 24 hr 25 mg PO DAILY Qty: 30 0RF spironolactone 25 mg tablet 25 mg PO DAILY clobetasol 0.05 % solution 1 applic TOPICAL MOFR Patient Comments: APPLY TO THE SCALP ONCE DAILY FOR 3 WEEKS, THEN TWICE WEEKLY NEEDED FOR MAINTENANCE calcium carbonate-vitamin D3 [Calcium 600 + D(3)] 600 mg-5 mcg (200 unit) tablet 1 tab PO DAILY carboxymethylcellulose sodium [Lubricant Eye Drops] 0.5 % drops 1 drp EACH EYE DAILY Eye Multivitamin 2,148 mcg-113 mg-45 mg-17.4mg tablet 1 tab PO BID Rx Instructions: administer with AM and PM meals Other Ambulatory Orders: 12 Lead EKG (Routine) Timeframe: 20240219 Location: None Selected Ordered By: Dr. Dat Cuba Referrals / Follow Up: Physical,Therapy [Other] - 03/31/24 9:00 am Pedro Simon MD [Primary Care Provider] - Jeramy Munoz PA-C [Med Staff - [facility] Practice Prof] - 04/01/24 9:00 am Disposition Disposition (needs filled in before D/C Order can be placed): Home, Self Care
--- NOTE | 2024-03-17 12:32 | CASEMGMT ---
Met with?pt and her to complete PARIKH form. PARIKH form explained to both who voiced understanding and signed form. Original form placed in pt?s chart and copy provided to?patient. Areli Nguyen, Discharge Planning Asst
--- NOTE | 2024-03-17 12:34 | CASEMGMT ---
JAIMEE ALFORD Assessment Face to Face with patient for initial transition planning/care coordination assessment. JAIMEE ALFORD introduced self and role at [facility], pt voices understanding. Pt is A&Ox4 and is resting comfortably in bed and is calm. Care providers, pharmacy, and demographics verified. Admitting dx: Rt Total Shoulder PCP: Alfred Specialists: Chauncey Sneed, Cardio at [place] Preferred Pharmacy: [facility] During this stay. Prescriptions already picked up by the pt Insurance: [employer] A/B, BUX Prescription Benefit: Yes LNOK: Owen Tracy (H), margo Dickens (ORLY) Living Arrangements: Pt lives with her in a single story home with a BM with HR with 2 steps to enter with HR ADLs/IADLs: Ind Transportation: Self, DME: CPAP at night with no additional oxygen. WW and cane but does not normally need to use. Walk in shower with chair. BP Cuff. HHC/SNF: Denies history or needs Pt?s goal: Home with OP therapy Plan: OT is recommending OP Therapy. At this time, the pt states that she already has an appt set up through [facility] in 2 weeks and is to be seen by Dr. Cuba's PA. Pt denies needing an Rx for this. Pt denies further concerns or needs at this time. Juice Garcia RN, CM
== END 2024-03-17 13:36 | disposition home or self-care (01) ==
LOC: SDC 14:46 → MS3 14:46
PROVIDERS: Anesthesiology; Admitting Provider Specialist; PCP Family Medicine; Referring Provider Specialist; Visit Provider Specialist
PROC: (CPT 23472; principal; 2024-03-16 10:45)
DX: M19.011 Primary osteoarthritis, right shoulder (principal); I50.9 Heart failure, unspecified; I48.91 Unspecified atrial fibrillation; Z68.41 Body mass index [BMI] 40.0-44.9, adult; E66.01 Morbid (severe) obesity due to excess calories; M85.80 Other specified disorders of bone density and structure, unspecified site; E03.9 Hypothyroidism, unspecified; I47.10 Supraventricular tachycardia, unspecified; G47.30 Sleep apnea, unspecified; H35.30 Unspecified macular degeneration; Z85.820 Personal history of malignant melanoma of skin; M75.101 Unspecified rotator cuff tear or rupture of right shoulder, not specified as traumatic; Z79.899 Other long term (current) drug therapy; Z79.01 Long term (current) use of anticoagulants; Z86.718 Personal history of other venous thrombosis and embolism
CPT/HCPCS: 23472; 01638; 64415; 36415; 36416; 73030; 73200; 80048; 82040; 82962; 83735; 84443; 85027; 85610; 87081; 88305; 88311; 93005; 94668; 94762; 96365; 96366; 96375; 97167; 99221; C1776; J7040; J7120; A4216; G0378; J2405; J3475

== ENCOUNTER → 2024-05-14 | Outpatient (CLI) | payer MEDICARE, BC, SELFPAY ==
[2024-05-14 08:37] LABS: International Normalized Ratio 1.8
== END | disposition home or self-care (01) ==
LOC: LAB 06:56
PROVIDERS: PCP Family Medicine; Referring Provider Nurse Practitioner Family; Visit Provider Nurse Practitioner Family
DX: Z79.01 Long term (current) use of anticoagulants (principal)
CPT/HCPCS: 36415; 85610

== ENCOUNTER → 2025-01-04 | Outpatient (CLI) | payer MEDICARE, BC, SELFPAY ==
--- NOTE | 2025-01-04 11:20 | RAD_ITS ---
PROCEDURE: CHEST PA AND LATERAL REASON FOR EXAM: Cough. TECHNIQUE: Frontal and lateral views of the chest. COMPARISON: CT dated 11/17/2023. FINDINGS: The heart size is normal. Aortic calcifications are noted. No acute consolidation, pleural effusion or pneumothorax. Status post right total shoulder replacement and left rotator cuff repair. RAD/Chest PA and Lateral IMPRESSION: No acute consolidation, pleural effusion or pneumothorax. Reading Location: [id number]
== END | disposition home or self-care (01) ==
LOC: MTRAD 11:20
PROVIDERS: PCP Family Medicine; Referring Provider Family Medicine; Visit Provider Family Medicine
DX: R05.9 Cough, unspecified (principal)
CPT/HCPCS: 71046

== ENCOUNTER → 2025-01-05 | Outpatient (CLI) | payer MEDICARE, BC, SELFPAY ==
[2025-01-05 10:48] LABS: Hematocrit 49.7 % (37-47); Hemoglobin 16.6 g/dL (12.0-15.0); Mean Corp Hgb Conc 33.4 g/dL (32-36); Mean Corpuscular Hgb 31.1 pg (27.0-32.0); Mean Corpuscular Volume 93.2 fL (81-99); Mean Platelet Vol. 9.9 fl (6.2-12.0); Platelet Count 244 K/mm3 (150-450); RBC Distribution Width SD 47.9 fl (35.1-43.9); Red Blood Count 5.33 M/mm3 (4.2-5.4)
[2025-01-05 11:03] LABS: BNP,B-Type NATRIURETIC PEPTIDE 33.3 pg/mL (0-100)
[2025-01-05 11:40] LABS: AST(SGOT) 20 U/L (15-37); Alanine Aminotransfer ALT/SGPT 32 U/L (13-56); Albumin, Serum 3.5 g/dL (3.2-5.0); Alkaline Phosphatase 84 U/L (45-117); Anion Gap 7 (5-15); BUN 16 mg/dL (7-18); BUN/Creat Ratio 19.8 RATIO (10-20); Calcium,Total 9.1 mg/dL (8.5-10.1); Chloride 106 mmol/L (98-107); Cholesterol 134 mg/dL (200); Creatinine, Serum 0.81 mg/dL (0.55-1.02); EST Glomerular Filtration Rate 74 mL/min (>60); Est Glom Filt Rate - Afr Amer 90 mL/min (>60); Globulin 3.5 g/dL (2.2-4.2); Glucose 105 mg/dL (74-106); High Density Lipoprotein 51 mg/dL; Potassium 4.6 mmol/L (3.5-5.1); Sodium Level 138 mmol/L (136-145); Triglycerides 90 mg/dL; Very Low Density Lipoprotein 18 mg/dL (5-40)
== END | disposition home or self-care (01) ==
LOC: MFPLAB 08:58
PROVIDERS: PCP Family Medicine; Referring Provider Family Medicine; Visit Provider Family Medicine
DX: I50.30 Unspecified diastolic (congestive) heart failure (principal); I48.91 Unspecified atrial fibrillation; D58.2 Other hemoglobinopathies
CPT/HCPCS: 36415; 80053; 80061; 83880; 84443; 85027

== ENCOUNTER → 2025-02-13 | Outpatient (CLI) | payer MEDICARE, BC, SELFPAY ==
--- NOTE | 2025-02-13 09:55 | ECHOCS_ITS ---
Reason For Study Reason For Study: DYSPNEA Procedure This was a 2D Doppler, Color Flow transthoracic echocardiogram. The study was technically difficult. Due to body habitus. Contrast injection was performed. Exam performed in department. Left Ventricle Normal LV size. Left ventricular systolic function is normal. The left ventricular ejection fraction is 65 %. No regional wall motion abnormalities noted. Right Ventricle Normal RV size. Normal systolic function. Atria Normal left atrium. Normal right atrium. Mitral Valve Normal mitral valve. Tricuspid Valve Normal tricuspid valve. Aortic Valve Trisinus/trileaflet aortic valve. Mild focal aortic valve calcification. Pulmonic Valve The pulmonic valve is not well visualized. Great Vessels Normal aortic root. The pulmonary artery is normal size. Normal inferior vena cava. Pericardium/Pleural No pericardial effusion. Medication 22 gauge I.V. with prn adaptor inserted into right arm. Diluted definity 4.0ml given slow IV push to enhance endocardial definition. MMode/2D Measurements & Calculations LVIDd: 4.7 cm IVSd: 0.86 cm Ao root diam: 3.6 cm LVIDs: 3.0 cm LVPWd: 0.88 cm RVDd: 3.2 cm FS: 34.8 % LAV(MOD-bp): 46.9 ml LVAd ap4: 29.8 cm2 LVAd ap2: 21.1 cm2 LAV(MOD-bp) Indexed: 21.8 ml/m2 LVLd ap4: 7.3 cm LVLd ap2: 6.4 cm LAV(MOD-sp2): 41.8 ml EDV(MOD-sp4): 101.6 ml EDV(MOD-sp2): 55.7 ml LAV(MOD-sp4): 49.0 ml EDV(sp4-el): 103.9 ml EDV(sp2-el): 58.5 ml LVAs ap4: 14.6 cm2 LVAs ap2: 13.2 cm2 LVLs ap4: 5.5 cm LVLs ap2: 5.6 cm ESV(MOD-sp4): 32.5 ml ESV(MOD-sp2): 25.3 ml ESV(sp4-el): 32.8 ml ESV(sp2-el): 26.3 ml EF(MOD-sp4): 68.0 % EF(MOD-sp2): 54.6 % EF(sp4-el): 68.4 % SV(MOD-sp4): 69.0 ml SV(MOD-sp2): 30.4 ml SV(sp4-el): 71.0 ml SI(MOD-sp4): 32.0 ml/m2 SI(MOD-sp2): 14.1 ml/m2 LA A4 area: 17.3 cm2 LA dimension(2D): 4.0 cm RA A4 area: 17.1 cm2 TAPSE: 2.4 cm Time Measurements MV dec time: 0.32 sec Doppler Measurements & Calculations MV E max arcenio: 74.9 cm/sec Lat Peak E' Arcenio: 6.9 cm/sec Med Peak E' Arcenio: 5.8 cm/sec MV A max arcenio: 114.9 cm/sec E/E' lat: 10.9 E/E' med: 12.9 MV E/A: 0.65 MV dec slope: 236.0 cm/sec2 Ao V2 max: 145.4 cm/sec LV V1 max: 135.1 cm/sec Ao max P.5 mmHg LV V1 max P.3 mmHg Ao V2 mean: 97.9 cm/sec LV V1 mean P.8 mmHg Ao mean P.3 mmHg LV V1 mean: 90.2 cm/sec Ao V2 VTI: 29.4 cm LV V1 VTI: 28.3 cm AV (velocity ratio): 0.96 PA V2 max: 112.0 cm/sec PA V2 mean: 79.6 cm/sec ECHO/Echo Complete W/ Contrast Interpretation Summary Normal LV size. Left ventricular systolic function is normal. The left ventricular ejection fraction is 65 %. Contrast injection was performed. Ordering Physician: Pedro Simon Referring Physician: Pedro Simon Performed By: Asia Walker RDCS, RVT
== END | disposition home or self-care (01) ==
LOC: CVS 09:53
PROVIDERS: PCP Family Medicine; Referring Provider Family Medicine; Visit Provider Family Medicine
DX: R06.00 Dyspnea, unspecified (principal)
CPT/HCPCS: 93306; Q9957; A4216; C8929

== ENCOUNTER → 2025-02-22 | Outpatient (CLI) | payer MEDICARE, BC, SELFPAY ==
--- NOTE | 2025-02-22 11:42 | US_ITS ---
PROCEDURE: THYROID 02/22/2025 REASON FOR EXAM: 75-year-old female, THYROID ONE YEAR F/U TECHNIQUE: Thyroid ultrasound COMPARISON: Thyroid ultrasound 02/24/2024. FINDINGS: Right thyroid lobe measures 4.3 x 1.7 x 1.5 cm. Left thyroid lobe measures 3.9 x 1.6 x 1.9 cm. Isthmus thickness is0.3 cm. Thyroid Size: Normal Background Echotexture: Homogeneous Thyroid Nodules: Benign colloid cysts within the bilateral thyroid lobes. Other: Normal lymph node measured within the left mid neck, which is normal in size and demonstrates normal hilar and cortical structure. US/Thyroid IMPRESSION: No suspicious thyroid nodules. Further dedicated follow-up is not indicated by ACR TI-RADS criteria. Reading Location: [id number]
== END | disposition home or self-care (01) ==
PROVIDERS: PCP Family Medicine; Referring Provider Surgery; Visit Provider Surgery
DX: E04.2 Nontoxic multinodular goiter (principal)
CPT/HCPCS: 76536

== ENCOUNTER → 2025-04-11 | Outpatient (CLI) | payer MEDICARE, BC, SELFPAY ==
--- NOTE | 2025-04-11 17:46 | STRESSREP ---
Stress Test Report Pharmacologic myocardial perfusion stress test. 75-year-old lady with a history of shortness of breath Resting EKG demonstrates sinus rhythm with a rate of 61 bpm. Resting blood pressure is 122/78 mmHg. 0.4 mg of regadenoson was infused per usual protocol followed by rapid intravenous saline flush injection. Continuous EKG monitoring was performed. The maximum heart rate was 90 bpm which was 61% of max impacted heart rate the maximum workload was 1 metabolic equivalent. At rest there were no ST or T wave changes noted to suggest ischemia and at peak infusion nonspecific ST changes were noted which did not meet the criteria for ischemia. No clinical angina is noted. The final blood pressure was 114/75 mmHg. Myocardial perfusion protocol. 14.2 mCi of technetium 99m sestamibi was injected at rest. 0.4 mg of regadenoson was infused per usual protocol. At peak infusion 45 mCi of technetium 99m sestamibi was injected stress images were obtained stress and rest images were reconstructed and compared in the short axis vertical long and horizontal long axis. Gated images were also obtained. Perfusion SPECT analysis: Review of the stress images demonstrate normal uptake of tracer noted in all areas of the myocardium. The resting images similar demonstrated normal uptake of tracer noted in all areas of the myocardium. No areas of reversibility are noted to suggest ischemia and no previous infarct is noted. Gated SPECT analysis: The gated ejection fraction is 76%. Conclusion: Normal pharmacologic myocardial perfusion stress test. Preserved ejection fraction.
== END | disposition home or self-care (01) ==
LOC: CVS 06:24
PROVIDERS: PCP Family Medicine; Referring Provider Nurse Practitioner Family; Visit Provider Nurse Practitioner Family
DX: R06.02 Shortness of breath (principal); I50.30 Unspecified diastolic (congestive) heart failure; I11.0 Hypertensive heart disease with heart failure; I48.0 Paroxysmal atrial fibrillation; G47.33 Obstructive sleep apnea (adult) (pediatric)
CPT/HCPCS: 78452; 93017; A9500; A4216; J2785

== ENCOUNTER → 2025-06-08 | Outpatient (CLI) | payer MEDICARE, BC, SELFPAY ==
[2025-06-08 17:03] LABS: Hematocrit 48.0 % (37-47); Hemoglobin 16.8 g/dL (12.0-15.0); Immature Granulocytes Count 0.030 X10^3/uL (0.0-0.0); Immature Reticulocyte Fraction 5.50 % (3.00-15.90); Mean Corp Hgb Conc 35.0 g/dL (32-36); Mean Corpuscular Volume 90.2 fL (81-99); Mean Platelet Vol. 9.7 fl (6.2-12.0); NRBC Flagged by Analyzer 0 % (0-5); Platelet Count 229 K/mm3 (150-450); RBC Distribution Width CV 14.1 % (11.6-14.6); RBC Distribution Width SD 46.8 fl (35.1-43.9); Red Blood Count 5.32 M/mm3 (4.2-5.4); Reticulocyte Count 1.51 % (0.5-1.5); White Blood Count 8.8 K/mm3 (4.4-11.0)
[2025-06-08 17:20] LABS: Prothrombin Time (Protime)PT. 13.7 SECONDS (11.7-14.9)
[2025-06-08 17:21] LABS: Partial Thromboplast Time 27.8 Seconds (24.1-36.2)
[2025-06-08 17:35] LABS: Carboxyhemoglobin Order ORDER TUBE
[2025-06-08 17:43] LABS: D-Dimer Quantitative (DVT/PE) 0.27 FEU/ug/m (0.27-0.49)
[2025-06-08 17:45] LABS: AST(SGOT) 22 U/L (<=31); Alanine Aminotransfer ALT/SGPT 31 U/L (<=34); Albumin, Serum 4.3 g/dL (3.4-4.8); Alkaline Phosphatase 85 U/L (35-104); Anion Gap 14 (5-15); BUN 19 mg/dL (4-19); BUN/Creat Ratio 23.2 RATIO (10-20); Calcium,Total 9.6 mg/dL (7.6-11.0); Carbon Dioxide 20.9 mmol/L (21.0-32.0); Chloride 105 mmol/L (98-108); Globulin 2.8 g/dL (2.2-4.2); Glucose 103 mg/dL (70-99); Potassium 3.9 mmol/L (3.3-5.1)
[2025-06-08 17:53] LABS: Ferritin 155 ng/mL (22-378)
[2025-06-08 17:54] LABS: LDH 175 U/L (84-246)
[2025-06-08 19:12] LABS: CRP 4.24 mg/L (0.0-3.0); Iron 91 ug/dL (50-170); Iron Binding Capacity,Total 353 ug/dL (250-450); Iron Binding Capacity,Unsat 262 ug/dL (228-428)
[2025-06-14 09:59] LABS: Carboxyhemoglobin Frac (CO) 3.0 % (0.0-1.5)
== END | disposition home or self-care (01) ==
LOC: LAB 16:32
PROVIDERS: PCP Family Medicine; Referring Provider Internal Medicine Medical Oncology; Visit Provider Internal Medicine Medical Oncology
DX: D75.1 Secondary polycythemia (principal); Z79.01 Long term (current) use of anticoagulants
CPT/HCPCS: 36415; 80053; 82375; 82668; 82728; 83540; 83550; 83615; 85025; 85045; 85379; 85610; 85652; 85730; 86140

== ENCOUNTER → 2025-06-16 | Outpatient (CLI) | payer MEDICARE, BC, SELFPAY ==
--- NOTE | 2025-06-16 07:32 | US_ITS ---
PROCEDURE: ABDOMEN COMPLETE 06/16/2025 REASON FOR EXAM: POLYCYTHEMIA TECHNIQUE: ABDOMEN COMPLETE COMPARISON: No FINDINGS: The liver is normal in size but there is hepatic steatosis and heterogeneous echotexture, correlate for medical liver disease... There is a 2.3 cm cyst.. There is cholelithiasis without wall thickening, pericholecystic fluid, or localized pain.. 6 mm CBD. Hepatopetal portal flow. Normal size spleen. Normal visible pancreas. The right kidney measures 12 cm in length without hydronephrosis. Left kidney measures 12 cm in length without hydronephrosis. There is a 2 cm simple cyst. The visible aorta is unremarkable. US/Abdomen Complete IMPRESSION: Cholelithiasis without specific ultrasound evidence of cholecystitis. Spleen is normal in size. Possible medical liver disease. Reading Location: [id number] [id number]
--- OUTSIDE RECORDS SUMMARY | 2025-06-16 07:40 | XMS RPT_ITS | CCD ---
Author Organization [facility] Care Team Providers Care Lens Cleaner Name Role Phone Farnaz Simon MD Primary Care Provider Dr. Arslan Simon Primary Care Provider [phone] Dr. Quincy Cortes Attending Provider Dr. Abrahan Mcdermott Emergency Provider Dr. Jack Perez Admit Provider Dr. Alden Grande Other Provider Landen RESTAURANT SHIFT SUPERVISOR, RESTAURANT SHIFT SUPERVISOR-C Johana Attending Provider Dr. Arslan Simon Primary Care Provider Dr. Casper Perez Attending Provider [phone] Jack Perez Referring Provider Dr. Alden Grande Attending Provider ALFRED SNOWDEN, DR OSEI Primary Care Physician Dr. Arslan Simon Primary Care Provider [phone] Dr. Arslan Simon Referring Provider Dr. Mikhail Cardenas Attending Provider Farnaz Simon MD Primary Care Provider Dr. Arslan Simon Primary Care Provider Dr. Ritesh Meraz Attending Provider Dr. Dat Mata Referring Provider Dr. Farnaz Simon Primary Care Provider [phone] DR FARNAZ SIMON MD Primary Care Luis BRAND MD, DR FLORENTINO Attending Shahbaz Jacobo MD, DR FLORENTINO Attending Shahbaz Jama MD, DR OSEI Primary Care Dr. Mikhail Mancilla Attending Provider Dr. Mikhail Cardenas Referring Provider Dr. Dat Mata Admit Provider Dr. Dat Mata Other Provider Dr. Abrahan Silver Attending Provider Alfred SNOWDEN, Farnaz Bose Primary Care Provider ROBERT GARSIA Referring Unavailable FARNAZ SIMON Primary Care UnavailROBERT Longo Referring Unavailable ROBERT GARSIA Attending Unavailable [facility]ARNAZ SIMON [facility] Dr. Osei Primary Care Provider Dr. Farnaz Simon MD Attending Provider [phone] Alfred SNOWDEN, Dr. Osei Referring Provider [phone] Ritseh Meraz MD Attending Provider Ronald SNOWDEN, Dr. Elizondo Attending Provider Ronald SNOWDEN, Dr. Elizondo Referring Provider ALFRED SNOWDEN, DR OSEI Primary Care Luis ricci FISH INSPECTOR LINE-ECOLOGY TEACHER, SINDI Attending Dr. Farnaz Mondragon MD Primary Care Provider Dr. Farnaz Simon MD Attending Provider Alfred SNOWDEN, Dr. Osei Referring Provider [phone] Fish RESTAURANT SHIFT SUPERVISOR-C, Sindi Attending Provider [phone] Fish RESTAURANT SHIFT SUPERVISOR-C, Sindi Referring Provider Fish RESTAURANT SHIFT SUPERVISOR-C, Sindi Other Provider Angel SNOWDEN, Dr. Grant Attending Provider Angel SNOWDEN, Dr. Grant Referring Provider Alfred SNOWDEN, Dr. Osei Primary Care Provider Kt SNOWDEN, Dr. Awad Attending Provider Dr. Farnaz Simon MD Referring Provider [phone] Farnaz Simon [facility] Care Unavailable Prah, Rudy Attending Unavailable Farnaz Simon Referring [facility]available [facility] Unavailable Mikhail Cardenas Attending Unavailable Yazmintz, Mikhail Referring Unavailable [facility] Unavailable Kt, Ritesh Attending Unavailable Alfred, [facility] Unavailable Fish RESTAURANT SHIFT SUPERVISOR, Sindi Consulting Unavailable Fish RESTAURANT SHIFT SUPERVISOR, Sindi Referring Unavailable Ritesh Meraz Attending Unavailable Prah, Rudy Referring Unavailable Prah, Rudy Attending Unavailable [place] Unavailable Fish RESTAURANT SHIFT SUPERVISOR, Sindi Attending Unavailable Fish RESTAURANT SHIFT SUPERVISOR, Sindi Referring Unavailable Prah, Rudy Referring Unavailable Prah, Rudy Attending Unavailable Alfred, [facility] Primary Care Unavailable Prah, Rudy Referring Unavailable Prah, Rudy Attending Unavailable Alfred, [facility] Primary Care Unavailable Angel, Rudy Attending Unavailable Farnaz Simon Referring [facility]available [facility] Alfred, [facility] Primary Care Unavailable Farnaz Simon Attending Unavailable Farnaz Simon Referring [facility] Unavailable Farnaz Simon Attending Unavailable Farnaz Simon Referring [facility]available [facility] Unavailable Farnaz Simon Attending Unavailable Farnaz Simon Referring Unavailable Allergies Allergy Classification Reported Allergen(s) Allergy Type Date of Onset Reaction(s) Facility (20 sources) Adhesive agent; Translations: [ADHESIVE] Drug Intolerance 4 Rash, Itching [facility] Work Phone: (20 sources) Risedronate; Translations: [RISEDRONATE SODIUM] Drug Allergy 9 Other: See Comments [facility] Comment on above: SORE JOINTS AND MUSC LES (15 sources) Sulfonamides (Antibiotic); Translations: [sulfa drugs] Propensity to adverse reactions 6 Rash [facility] Work Phone: (20 sources) DISPOSABLE STITCHES; Translations: [DISPOSABLE STITCHES] Allergy to substance 0 Rash [facility] (5 sources) Adhesive bandage Propensity to adverse reactions to substance skin irritation [facility] (5 sources) Risedronate; Translations: [risedronate] Drug Allergy Muscle pain (finding) [facility] (16 sources) Sulfonamides (Antibiotic) Allergy to substance 0 Other [facility] (2 sources) Sulfonamide; Translations: [sulfa drugs] Drug allergy rash [facility] (3 sources) Atenolol Drug Allergy 5 NEEDS FOLLOW-UP [facility] (3 sources) egg extract Drug Allergy 5 Rash [facility] (1 source) Atenolol Drug Allergy 5 [facility] (1 source) egg extract Drug Allergy 5 [facility] (1 source) Risedronate Drug Allergy 5 [facility] (1 source) Sulfonamides (Antibiotic) Drug allergy (disorder) 5 [facility] Medications Current Medications Medication Drug Class(es) Dates Sig (Normalized) Sig (Original) apixaban 5 mg oral tablet (8 sources) Factor Xa Inhibitor Start: 05-08-2025 take 1 tablet by mouth twice daily Apixaban (Eliquis) 5 mg tablet Active 5 mg PO TWICE A DAY May 08, 2025 12:00am Start: 05-13-2024 take 1 tablet by lucie th every twelve hours ELIQUIS 5 mg tab(s) Take 1 tablet by mouth every 12 hours. 08/01/2024 Active ascorbic acid 113 mg / beta carotene 7160 mg / cuprous oxide 0.4 mg / dl-alpha tocopheryl acetate 100 unt / zinc oxide 17.4 mg oral tablet (9 sources) Vitamin C Start: 02-17-2024 Vitamins A,C,E -Zinc-Copper (Eye Multivitamin) 2,148 mcg-113 mg-45 mg-17.4mg tablet Active 1 {tbl} PO TWICE A DAY February 17, 2024 12:00am administer with AM and PM meals Biotin (20 sources) Start: 02-04-2023 biotin Oral, q Day, 0 Refill(s) Start Date: 02/04/23 Status: Ordered Repeat number: 1 Start: 02-04-2023 biotin Oral, q Day, 0 Refill(s) Start Date: 02/04/23 Status: Ordered Start: 08-04-2021 take 1000 mg by mouth once mayco ly BIOTIN ORAL Take 1,000 mg by mouth once daily. 08/04/2021 Active Start: 08-04-2021 take 1000 mg by mouth once mayco ly BIOTIN ORAL Take 1,000 mg by mouth once daily. 0 08/04/2021 Active Start: 07-25-2020 take 1 tablet by lucie th once daily Biotin 5 MG tablet Active 5 mg PO DAILY July 25, 2020 12:00am hair loss Comment on above: Take 1,000 mg by lucie th once daily. calcium carbonate 1500 mg / cholecalciferol 200 unt oral tablet (9 sources) Vitamin D Start: 02-17-2024 Calcium Carbonate-Vitamin D3 (Calcium 600 + D(3)) 600 mg-5 mcg (200 unit) tablet Active 1 {tbl} PO DAILY February 17, 2024 12:00am Calcium Carbonate / vitamin D3 (7 sources) CALCIUM CARBONATE/VITAMIN D3 (VITAMIN D-3 ORAL) Take by mouth. Active CALCIUM CARBONAT E/VITAMIN D3 (VITAMIN D-3 ORAL) Take by mouth. 0 Active Comment on above: Take by mouth. calcium-vitamin D extended release (5 sources) Start: 02-04-2023 calcium-vitami n D extended release Oral, qAM, 0 Refill(s) Start Date: 02/04/23 Status: Ordered Repeat number: 1 Start: 02-04-2023 calcium-vitami n D extended release Oral, qAM, 0 Refill(s) Start Date: 02/04/23 Status: Ordered cholecalciferol 0.05 mg oral capsule (20 sources) Vitamin D Start: 05-08-2025 take 1 capsule by mouth once daily Cholecalciferol (Vitamin D3) 50 mcg (2,000 unit) capsule Active 2000 U PO DAILY May 08, 2025 9:26am supplement Start: 07-25-2020 End: 05-08-2025 Cholecalciferol (Vitamin D3) 2,000 UNIT capsule Discontinued 1000 U PO DAILY July 25, 2020 12:00am May 08, 2025 9:30am supplement Start: 07-25-2020 take 1000 [IU] by mo uth once daily Cholecalciferol (Vitamin D3) Active 1000 UNIT PO DAILY July 25, 2020 12:00am Start: 07-25-2020 take 2000 [IU] by [facility] once daily Cholecalciferol (Vitamin D3) Active 2000 UNIT PO DAILY July 24, 2020 11:00pm cholecalciferol, vitamin D3, (VITAMIN D3 ORAL) (7 sources) take 2000 [IU] by mouth once daily cholecalciferol, vitamin D3, (VITAMIN D3 ORAL) Take 2,000 Units by mouth once daily. Active take 2000 [IU] by mouth once mayco ly cholecalciferol, vitamin D3, (VITAMIN D3 ORAL) Take 2,000 Units by mouth once daily. 0 Active Comment on above: Take 2,000 Units by mouth once daily. clobetasol propionate 0.5 mg/ml topical solution (14 sources) Corticosteroid Start: 02-26-2024 Clobetasol Propionate (TEMOVATE) 0.05 % external solution APPLY TO THE SCALP ONCE DAILY FOR 3 WEEKS, THEN TWICE WEEKLY NEEDED FOR MAINTENANCE 02/26/2024 Active Start: 02-26-2024 clobetasol 0.0 5% topical solution APPLY TO THE SCALP ONCE DAILY FOR 3 WEEKS, THEN TWICE WEEKLY NEEDED FOR MAINTENANCE Start Date: 02/26/24 Status: Ordered Repeat number: 1 Start: 02-17-2024 Clobetasol 0.0 5 % solution Active 1 NMA TOPICAL MOFR February 17, 2024 12:00am Start: 02-17-2024 Clobetasol Act jer[place]o 1 APPLIC TOPICAL MOFR February 17, 2024 12:00am cycloSPORINE 0.5 mg/ml ophthalmic suspension (3 sources) Calcineurin Inhibitor Immunosuppressant Start: 05-08-2025 Cyclosporine (Restasis) 0.05 % dropperette Active 1 NMA OPHTHALMIC May 08, 2025 12:00am cycloSPORINE-chondr oitin sulfate A (CYCLOSPORINE IN KLARITY) 0.1-0.25 % ophthalmic drops (3 sources) cycloSPORINE-cho n droitin sulfate A (CYCLOSPORINE IN KLARITY) 0.1-0.25 % ophthalmic drops 1 Drop. Active 24 hr dilTIAZem hydrochloride 120 mg extended release oral capsule (20 sources) Calcium Channel Latoya Start: 02-04-2023 take 1 capsule by mouth every hour, then take 1 capsule by mouth once daily Dilt-XR 120 mg/24 hours oral capsule, extended release Dose : 120 mg = 1 cap(s), Oral, qDay, # 90 cap(s), 0 Refill(s) Start Date: 02/04/23 Status: Ordered Quantity: 90.0 Unit: cap(s) Repeat number: 1 Start: 03-12-2019 take 1 capsule by [facility] once daily Diltiazem Hcl (Dilt-Xr) 120 capsule,ext.rel 24h degradable Active 120 mg PO DAILY March 12, 2019 12:00am BP Comment on above: Take 120 mg by mouth once daily. empagliflozin 10 mg oral tablet (5 sources) Sodium-Glucose Cotransporter 2 Inhibitor Start: 05-13-20 take 1 tablet by mouth once daily in the morning JARDIANCE 10 mg tablet Take 10 mg by mouth every morning. 08/01/2024 Active furosemide 40 mg oral tablet (20 sources) Loop Diuretic Start: 05-08-20 take 1 tablet by mouth once daily Furosemide 40 mg tablet Active 40 mg PO DAILY May 08, 2025 12:00am Start: 04-29-2024 furosemide 40 mg oral tablet Dose : 40 mg = 1 tab(s), Oral, qDay, # 90 tab(s), 3 Refill(s), Pharmacy: [id number], 162.6, cm, 02/26/24 11:52:00 EDT, Height, kg, 02/26/24 11:52:00 EDT, Dosing Weight Start Date: 04/29/24 Status: Ordered Quantity: 90.0 Unit: tab(s) Repeat number: 4 Start: 07-31-2023 furosemide 40 mg oral tablet Dose : 40 mg = 1 tab(s), Oral, qDay, # 30 tab(s), 6 Refill(s), Pharmacy: [id number], 162.6, cm, 07/31/23 9:32:00 EDT, Height, kg, 07/31/23 9:32:00 EDT, Dosing Weight Start Date: 07/31/23 Status: Ordered Start: 07-25-2020 take 40 mg by mouth once daily Furosemide Active 40 MG PO DAILY July 25, 2020 12:00am Start: 12-23-2019 End: 05-08-2025 take 2 tablets by mouth once daily Furosemide 20 MG tablet Discontinued 40 mg PO DAILY July 25, 2020 12:00am May 08, 2025 9:30am fluid retention Start: 12-23-2019 take 1 tablet by lucie th once daily in the morning furosemide (LASIX) 20 mg tablet Take 20 mg by mouth every morning. 0 12/23/2019 Active Comment on above: Take 20 mg by mouth every morning. ICaps AREDS 2 oral capsule (2 sources) Start: 02-26-2024 take 1 capsule by mouth twice daily ICaps AREDS 2 oral capsule Dose = 1 cap(s), Oral, BID, # 60 cap(s), 0 Refill(s) Start Date: 02/26/24 Status: Ordered Quantity: 60.0 Unit: cap(s) Repeat number: 1 Start: 02-26-2024 take 1 capsule by mo uth twice daily ICaps AREDS 2 oral capsule Dose = 1 cap(s), Oral, BID, # 60 cap(s), 0 Refill(s) Start Date: 02/26/24 Status: Ordered L.Acid,Para-B.Bifidum-S.Ther m (1 source) Start: 03-02-2024 take 1 capsule by mouth once daily L.Acid,Para-B.Bifidum-S.Therm Active 1 CAP PO DAILY March 02, 2024 12:00am levothyroxine sodium 0.075 m g oral tablet (20 sources) l- yr ox in e Start: 02-04-2023 levothyroxine 75 mcg (0.075 mg) oral tablet Dose : 75 mcg = 1 tab(s), Oral, qDayAC, # 90 tab(s), 0 Refill(s) Start Date: 02/04/23 Status: Ordered Quantity: 90.0 Unit: tab(s) Repeat number: 1 Start: 02-03-2022 take 1 tablet by lucie th once daily Levothyroxine (Euthyrox) 75 mcg tablet Active 75 ug PO DAILY March 14, 2022 12:00am thyroid Start: 01-19-2021 End: 02-17-2022 take 1 tablet by mouth once daily levothyroxine (SYNTHROID) 50 mcg tablet Take 50 mcg by mouth once daily. 0 01/19/2021 02/17/2022 Discontinued (Other) Comment on above: Take 50 mcg by mouth once daily. Take 75 mcg by mouth once daily. lisinopril 20 mg oral tablet (1 source) Angiotensin Converting Enzyme Inhibitor Start: 9 End: 2 take 1 tablet by mouth once daily lisinopril (ZESTRIL, PRINIVIL) 20 mg tablet Take 20 mg by mouth once daily. 4 12/14/2018 02/17/2022 Discontinued (Other) Comment on above: Take 20 mg by mouth once daily. magnesium citrate (7 sources) MAGNESIUM CITRAT E ORAL Take by mouth. Active MAGNESIUM CITRAT E ORAL Take by mouth. 0 Active Comment on above: Take by mouth. Magnesium Gluconate 12.5 mg magne- sium (250 mg) tablet (3 sources) Start: 05-08-2025 take 1 tablet by mouth once daily Magnesium Gluconate 12.5 mg magne- sium (250 mg) tablet Active 12.5 mg PO daily May 08, 2025 12:00am magnesium oxide 250 mg oral tablet (20 sources) Start: 02-04-2023 take 1 mg by mouth once daily Magnesium 250 mg tablet mg = tab(s), Oral, qDay, 0 Refill(s) Start Date: 02/04/23 Status: Ordered Repeat number: 1 Start: 07-25-2020 End: 05-08-2025 Magnesium Oxide 400 MG table t Discontinued 250 mg PO DAILY July 25, 2020 12:00am May 08, 2025 9:28am supplement Start: 07-25-2020 take 250 mg by mouth once daily Magnesium Oxide Active 250 MG PO DAILY July 25, 2020 12:00am 24 hr metoprolol succinate 25 mg extended release oral tablet (20 sources) beta-Adrenergic Latoya Start: 09-17-2024 take 1 tablet by mouth every hour metoprolol succinate ER (TOPROL XL) 25 mg 24 hr tablet Take 1 tablet by mouth every afternoon. 09/17/2024 Active Start: 02-04-2023 Metoprolol Tar trate 25 mg oral tablet Dose : 25 mg = 1 tab(s), Oral, Daily, as needed for palpitations, # 30 tab(s), 6 Refill(s), Pharmacy: [id number], 162.6, cm, 02/04/23 10:36:00 EDT, Height Start Date: 02/04/23 Status: Ordered Quantity: 30.0 Unit: tab(s) Repeat number: 7 Start: 03-15-2022 take 1 tablet by lucie th once daily Metoprolol Succinate 25 mg tablet extended release 24 hr Active 25 mg PO DAILY 30 March 15, 2022 12:00am Start: 02-09-2021 End: 02-17-2022 metoprolol tartrate, short a cting, (LOPRESSOR) 50 mg tablet Probiotic (5 sources) Start: 02-04-2023 Probiotic 0 Re fill(s) Start Date: 02/04/23 Status: Ordered Repeat number: 1 Start: 02-04-2023 Probiotic 0 Re fill(s) Start Date: 02/04/23 Status: Ordered spironolactone 25 mg oral tablet (17 sources) Aldosterone Antagonist Start: 02-04-2023 take 1 tablet by mouth once daily Spironolactone 25 mg tablet Active 25 mg PO DAILY February 17, 2024 12:00am vit C/E/cuperic/zinc/lut ein (PRESERVISION LUTEIN ORAL) (3 sources) vit C/E/cuperic/zinc/lut ein (PRESERVISION LUTEIN ORAL) Take by mouth. Active Vitamin D3 (5 sources) Start: 02-04-2023 Vitamin D3 qDay, 0 Refill(s) Start Date: 02/04/23 Status: Ordered Repeat number: 1 Start: 02-04-2023 Vitamin D3 qDa y, 0 Refill(s) Start Date: 02/04/23 Status: Ordered Completed/Discontinued Medications Medication Drug Class(es) Dates Sig (Normalized) Sig (Original) acetaminophen 500 mg oral tablet (6 sources) Start: 03-17-2024 End: 05-08-2025 Acetaminophen 500 mg Tablet Discontinued 1000 mg PO THREE TIMES A DAY 0 March 17, 2024 12:00am May 08, 2025 9:30am Do not take more than 3000 mg Tylenol in a 24-hour period. Start: 03-17-2024 take 3000 mg by mout h three times daily Acetaminophen Active 1000 MG PO THREE TIMES A DAY March 17, 2024 12:00am Do not take more than 3000 mg Tylenol in a 24-hour period. carboxymethylcellulose sodium 5 mg/ml ophthalmic solution (9 sources) Start: 02-17-2024 End: 05-08-2025 take 0.5 drop(s) into the eye(s) once daily Carboxymethylcellulose Sodium (Lubricant Eye Drops) 0.5 % drops Discontinued 1 NMA EACH EYE DAILY February 17, 2024 12:00am May 08, 2025 9:30am Start: 02-17-2024 take 0.5 drop(s) int o the eye(s) once daily Carboxymethylcellulose Sodium (Lubricant Eye Drops) 0.5 % drops Active 1 DRP EACH EYE DAILY February 17, 2024 12:00am docusate sodium 50 mg / sennosides, fpc 8.6 mg oral tablet (6 sources) Start: 03-17-2024 End: 05-08-2025 Sennosides-Docusate Sodium (Stool Softener-Stimulant Laxat) 8.6-50 mg Tablet Discontinued 2 {tbl} PO TWICE A DAY 12 3 0 March 17, 2024 12:00am May 08, 2025 9:29am Take until first bowel movement, then as needed doxycycline monohydrate 100 mg oral capsule (6 sources) Tetracyclin e-class Drug Start: 03-17-2024 End: 05-08-2025 take 1 capsule by mouth twice daily Doxycycline Monohydrate 100 mg Capsule Discontinued 100 mg PO TWICE A DAY 28 14 0 March 17, 2024 12:00am May 08, 2025 9:30am Take for 2 weeks postoperatively L.Acid,Para-B.Bifi dum-S.Therm 8 billion cell capsule (5 sources) Start: 03-02-2024 End: 05-08-2025 take 8 capsules by mouth once daily L.Acid,Para-B.Bifidum-S.T herm 8 billion cell capsule Discontinued 1 NMA PO DAILY March 02, 2024 12:00am May 08, 2025 9:29am Start: 03-02-2024 take 8 capsules by mouth once daily L.Acid,Para-B.Bifidum-S.Therm 8 billion cell capsule Active 1 NMA PO DAILY March 02, 2024 12:00am oxyCODONE hydrochloride 5 mg oral tablet (20 sources) Opioid Agonist Start: 03-17-2024 End: 05-08-2025 take 5-10 mg by mouth every four hours as needed for pain Oxycodone 5 mg Tablet Discontinued 5 - 10 mg PO EVERY 4 HOURS NEEDED as needed for as needed or pain 42 7 0 March 17, 2024 May 08, 2025 9:29am 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 Problems Active Problems Problem Classification Problem Date Documented Date Episodic/Chronic Cardiac dysrhythmias (20 sources) Supraventricular tachycardia; Translations: [Supraventricular tachycardia] Onset: 6 09-23-2016 Chronic Congestive heart failure; nonhypertensive (7 sources) Chronic diastolic heart failure; Translations: [Chronic diastolic (congestive) heart failure] Onset: 5 02-04-2023 Chronic Deficiency and other anemia (3 sources) Increased hemoglobin; Translations: [Other hemoglobinopathies] 05-08-2025 Chronic Deficiency and other anemia (1 source) Other hemoglobinopathies; Translations: [Other hemoglobinopathies] Onset: 5 Chronic Essential hypertension (15 sources) Hypertensive disorder; Translations: [Essential (primary) hypertension] Onset: 0 02-17-2022 Chronic Hypertension with complications and secondary hypertension (2 sources) Hypertensive heart failure; Translations: [Hypertensive heart disease with heart failure] Chronic Nonspecific chest pain (20 sources) Chest pain; Translations: [Chest pain, unspecified] Episodic Osteoarthritis (7 sources) Arthritis of knee; Translations: [Unilateral primary osteoarthritis, unspecified knee] Onset: 0 02-17-2022 Chronic Other aftercare (1 source) shelter (current) use of anticoagulants; Translations: [shelter (current) use of anticoagulants] Onset: 5 Episodic Other and ill-defined heart disease (7 sources) Diastolic dysfunction; Translations: [Other ill-defined heart diseases] Onset: 6 09-23-2016 Chronic Other connective tissue disease (6 sources) History of reverse prosthetic total arthroplasty of right shoulder; Translations: [Presence of right artificial shoulder joint] 03-17-2024 Chronic Other connective tissue disease (1 source) Presence of right artificial shoulder joint; Translations: [Shoulder joint replacement] 03-17-2024 Chronic Other connective tissue disease (3 sources) Hand pain; Translations: [Pain in right hand] 05-08-2025 Episodic Other hematologic conditions (8 sources) Erythrocytosis; Translations: [Secondary polycythemia] 05-18-2025 Episodic Comment on above: JAK2 V617 F is negat jericho.Discussed causes of polycythemia, other mutations that can cause polycythemia, carbon monoxide exposure. Patient wants to proceed with with further workup. JAK2 V617 F is negat jericho, JAK2 exon 12-15 negative, MPL negative.High Carboxyhemoglobin level. Other hematologic conditions (2 sources) Secondary polycythemia; Translations: [Secondary polycythemia] Onset: 5 Episodic Other lower respiratory disease (5 sources) Dyspnea 02-04-2023 Episodic Other lower respiratory disease (2 sources) Shortness of breath; Translations: [Shortness of breath] Onset: 5 Episodic Other nutritional; endocrine; and metabolic disorders (7 sources) Obesity; Translations: [Obesity, unspecified] Onset: 0 02-17-2022 Chronic Other screening for suspected conditions (not mental disorders or infectious disease) (6 sources) Patient encounter status; Translations: [Encounter for screening mammogram for malignant neoplasm of breast] Onset: 5 Episodic Thyroid disorders (18 sources) Multinodular goiter; Translations: [Nontoxic multinodular goiter] Onset: 5 04-10-2023 Chronic Comment on above: Patient is now a 74- year-old female, who remains euthyroid from an endocrine standpoint (last thyroid function testing end of last month), who presents for thyroid nodule surveillance. She previously underwent biopsy in 2022 for left-sided thyroid nodules that were both [place] 2 on final cytopathology. Today she denies development of any new compressive symptoms and her exam is largely unremarkable. I did review with her the results of her thyroid ultrasound which actually showed some significant change in size of her left thyroid lobe but this was a decrease. Her previous dominant solid/cystic nodule on the left appears to have lost significant cystic component such that the overall lobe dimensions were down 9 mm, 10 mm, and 6 mm for the 3 dimensions. Further, radiology now characterize patient's left thyroid nodule as 2 distinct nodules each measuring 1.3 cm in greatest dimension. Given their persistent cystic composition and well-demarcated borders these remain low risk TI-RADS 1-3 lesions. Yet given the significant variability from last year to this year I would like an additional thyroid ultrasound in 1 year. If this remains stable or improved we will then plan for a final 1 in 2 years. 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 due to chronic exposure to nonionizing radiation] Onset: 03-18-2007 Resolved: 09-03-2015 09-03-2015 Episodic Genitourinary symptoms and ill-defined conditions (7 sources) Hematuria of undiagnosed cause; Translations: [Hematuria, unspecified] Onset: 05-23-2013 05-23-2013 Episodic Neoplasms of unspecified nature or uncertain behavior (3 sources) Neoplasm of uncertain behavior of skin; Translations: [Neoplasm of uncertain behavior of skin] Onset: 03-18-2007 Resolved: 04-28-2012 04-28-2012 Episodic Other and unspecified benign neoplasm (3 sources) Benign neoplasm of skin of face; Translations: [Other benign neoplasm of skin of unspecified part of face] Onset: 03-18-2007 Resolved: 09-03-2015 09-03-2015 Episodic Other bone disease and musculoskeletal deformities (7 sources) Osteopenia; Translations: [Other specified disorders of bone density and structure, unspecified site] Onset: 04-28-2012 04-28-2012 Episodic Other injuries and conditions due to external causes (3 sources) Open wound; Translations: [Other injury of unspecified body region, initial encounter] Onset: 05-12-2007 Resolved: 04-28-2012 04-28-2012 Episodic Other lower respiratory disease (1 source) Dyspnea, unspecified; Translations: [Dyspnea, unspecified] Onset: 02-18-2025 Episodic Other non-epithelial cancer of skin (3 sources) Malignant neoplasm of skin of face; Translations: [Other and unspecified malignant neoplasm of skin of other and unspecified parts of face] Onset: 04-21-2007 Resolved: 09-03-2015 09-03-2015 Episodic Other skin disorders (3 sources) Disorder of skin pigmentation; Translations: [Disorder of pigmentation, unspecified] Onset: 03-18-2007 Resolved: 09-03-2015 09-03-2015 Episodic Other skin disorders (3 sources) Acne; Translations: [Other acne] Onset: 04-21-2007 Resolved: 09-03-2015 09-03-2015 Episodic Other skin disorders (3 sources) Sebaceous cyst of skin; Translations: [Sebaceous cyst] Onset: 04-21-2007 Resolved: 09-03-2015 09-03-2015 Episodic Results Test Name Value Interpretation Reference Range Facility L511.0135on 06-14-2025 COHb 3.0 High 0.0-1.5 [facility] Comment on above: Order Comment: INCOR RECTLY ENTERED Result Comment: INCO RRECTLY ENTERED Performed By: #### L 503.6030, L511.0135, L101.9900, L100.0100, L501.6710, L9999.0020, L500.4050, L3100.1350, L100.9950 ####[facility] [address] [place], [address] Erythropoietinon 06-12-2025 ERYTHROPOIETIN 12.8 mIU/mL Normal 2.6-18.5 [facility] Comment on above: Result Comment: [employer] DxI 800 Immunoassay System Values obtained with different assay methods or kits cannot be used interchangeably. Results cannot be interpreted as absolute evidence of the presence or absence of malignant disease. Performed at: [address], [place], [place] [id number] Train Conductor: Glenn Martínez PhD, Phone: [phone] Performed By: #### L 503.6030, L511.0135, L101.9900, L100.0100, L501.6710, L9999.0020, L500.4050, L3100.1350, L100.9950 ####[facility] [address] [place], [address] Absolute lymphocyte countOrd ered By: Rudy Ortiz on 06-08-2025 Lymphocytes Auto (Unsp spec) [#/Vol] 1.63 10*3/uL 0.83-4.51 [facility] Absolute neutrophil countOrd ered By: Rudy Ortiz on 06-08-2025 Neutrophils (Bld) [#/Vol] 5.8 10*3/uL 2.0-7.7 [facility] Activated partial thrombopla stin time (aPTT) in platelet poor plasma by coagulation aOrdered By: Rudy Ortiz on 06-08-2025 aPTT Coag (PPP) [Time] 27.8 s 24.1-36.2 [facility] Anion gap in Serum or Plasma Ordered By: Rudy Ortiz on 06-08-2025 Anion gap [Moles/Vol] 14 mmol/L 5-15 [facility] Automated lymphocyte count a s percentage of total leukocytesOrdered By: Rudy Ortiz on 06-08-2025 Lymphocytes/100 WBC Auto (Unsp spec) 18.5 % Low 19-41 [facility] BUN/creatinine ratioOrdered By: Rudy Ortiz on 06-08-2025 Urea nitrogen/Creatinine [Mass ratio] 23.2 mg/mg High 10-20 [facility] Basophil percentageOrdered B y: Rudy Ortiz on 06-08-2025 Basophils/100 WBC (Bld) 0.9 % 0-1 [facility] Bilirubin, totalOrdered By: Rudy Ortiz on 06-08-2025 Bilirubin [Mass/Vol] 0.29 mg/dL 0.00-1.30 [facility] Blood carboxyhemoglobin natalio urement (mass/volume)Ordered By: Rudy Ortiz on 06-08-2025 Carboxyhemoglobin (Bld) [Mass/Vol] 3.0 % High 0.0-1.5 [facility] CBC W/Diff, Automatedon 07-11 29-2024 Absolute Lymph 1.63 X10 3/uL Normal 0.83-4.51 [facility] Comment on above: Performed By: #### L 503.6030, L511.0135, L101.9900, L100.0100, L501.6710, L9999.0020, L500.4050, L3100.1350, L100.9950 ####[facility] [address] [place], [address] Absolute Neut 5.8 X10 3/uL Normal 2.0-7.7 [facility] Comment on above: Performed By: #### L 503.6030, L511.0135, L101.9900, L100.0100, L501.6710, L9999.0020, L500.4050, L3100.1350, L100.9950 ####[facility] [address] [place], [place], [phone] Basophils/100 WBC (Bld) 0.9 % Normal 0-1 [facility] Comment on above: Performed By: #### L 503.6030, L511.0135, L101.9900, L100.0100, L501.6710, L9999.0020, L500.4050, L3100.1350, L100.9950 ####[facility] [address] [place], [address] Eosinophils/100 WBC (Bld) 2.7 % Normal 0-5 [facility] Comment on above: Performed By: #### L 503.6030, L511.0135, L101.9900, L100.0100, L501.6710, L9999.0020, L500.4050, L3100.1350, L100.9950 ####[facility] [address] [place], [place], [phone] Erythrocyte distribution width (RBC) [Ratio] 14.1 % Normal 11.6-14.6 [facility] Comment on above: Performed By: #### L 503.6030, L511.0135, L101.9900, L100.0100, L501.6710, L9999.0020, L500.4050, L3100.1350, L100.9950 ####[facility] [address] [place], [place], [phone] Hematocrit (Bld) [Volume fraction] 48.0 % High 37-47 [facility] Comment on above: Performed By: #### L 503.6030, L511.0135, L101.9900, L100.0100, L501.6710, L9999.0020, L500.4050, L3100.1350, L100.9950 ####[facility] [address] [facility] [place], [place], [phone]) Hemoglobin (Bld) [Mass/Vol] 16.8 g/dL High 12.0-15.0 [facility] Comment on above: Performed By: #### L 503.6030, L511.0135, L101.9900, L100.0100, L501.6710, L9999.0020, L500.4050, L3100.1350, L100.9950 ####[facility] [address] [facility] [place], [place], [phone] IG% 0.300 Normal 0.0-0.9 [facility] Comment on above: Result Comment: IG% - Immature Granulocytes (promyelocytes, myelocytes and metamyelocytes) > 1% indicates that a LEFT SHIFT is Present. Performed By: #### L 503.6030, L511.0135, L101.9900, L100.0100, L501.6710, L9999.0020, L500.4050, L3100.1350, L100.9950 ####[facility] [address] [place], [phone]) Lymphocytes/100 WBC (Bld) 18.5 % Low 19-41 [facility] Comment on above: Performed By: #### L 503.6030, L511.0135, L101.9900, L100.0100, L501.6710, L9999.0020, L500.4050, L3100.1350, L100.9950 ####[facility] [address] [place], [address] MCH (RBC) [Entitic mass] 31.6 pg Normal 27.0-32.0 [facility] Comment on above: Performed By: #### L 503.6030, L511.0135, L101.9900, L100.0100, L501.6710, L9999.0020, L500.4050, L3100.1350, L100.9950 ####[facility] [address] [place], [address] MCHC (RBC) [Mass/Vol] 35.0 g/dL Normal 32-36 [facility] Comment on above: Performed By: #### L 503.6030, L511.0135, L101.9900, L100.0100, L501.6710, L9999.0020, L500.4050, L3100.1350, L100.9950 ####[facility] [address] [place], [address] MCV (RBC) [Entitic vol] 90.2 fL Normal 81-99 [facility] Comment on above: Performed By: #### L 503.6030, L511.0135, L101.9900, L100.0100, L501.6710, L9999.0020, L500.4050, L3100.1350, L100.9950 ####[facility] [address] [place], [address] Monocytes/100 WBC (Bld) 11.1 % High 0-10 [facility] Comment on above: Performed By: #### L 503.6030, L511.0135, L101.9900, L100.0100, L501.6710, L9999.0020, L500.4050, L3100.1350, L100.9950 ####[facility] [address] [place], [address] Neutrophils/100 WBC (Bld) 66.5 % Normal 47-70 [facility] Comment on above: Performed By: #### L 503.6030, L511.0135, L101.9900, L100.0100, L501.6710, L9999.0020, L500.4050, L3100.1350, L100.9950 ####[facility] [address] [facility] [place], [address] Nucleated RBC (Bld) [#/Vol] 0 10*3/uL Normal 0-5 [facility] Comment on above: Performed By: #### L 503.6030, L511.0135, L101.9900, L100.0100, L501.6710, L9999.0020, L500.4050, L3100.1350, L100.9950 ####[facility] [address] [facility] [place], [address] Platelet mean volume (Bld) [Entitic vol] 9.7 fL Normal 6.2-12.0 [facility] Comment on above: Performed By: #### L 503.6030, L511.0135, L101.9900, L100.0100, L501.6710, L9999.0020, L500.4050, L3100.1350, L100.9950 ####[facility] [address] [facility] [place], [address] Platelets (Bld) [#/Vol] 229 10*3/uL Normal 150-450 [facility] Comment on above: Performed By: #### L 503.6030, L511.0135, L101.9900, L100.0100, L501.6710, L9999.0020, L500.4050, L3100.1350, L100.9950 ####[facility] [address] [place], [address] RBC (Bld) [#/Vol] 5.32 10*6/uL Normal 4.2-5.4 [facility] Comment on above: Performed By: #### L 503.6030, L511.0135, L101.9900, L100.0100, L501.6710, L9999.0020, L500.4050, L3100.1350, L100.9950 ####[facility] [address] [place], [address] RDW SD 46.8 fl High 35.1-43.9 [facility] Comment on above: Performed By: #### L 503.6030, L511.0135, L101.9900, L100.0100, L501.6710, L9999.0020, L500.4050, L3100.1350, L100.9950 ####[facility] [address] [place], [address] WBC (Bld) [#/Vol] 8.8 10*3/uL Normal 4.4-11.0 [facility] Comment on above: Performed By: #### L 503.6030, L511.0135, L101.9900, L100.0100, L501.6710, L9999.0020, L500.4050, L3100.1350, L100.9950 ####[facility] [address] [place], [address] CRPon 06-08-2025 C-REACTIVE PROT 4.24 mg/L High 0.0-3.0 [facility] Comment on above: Performed By: #### L 503.6030, L511.0135, L101.9900, L100.0100, L501.6710, L9999.0020, L500.4050, L3100.1350, L100.9950 ####[facility] [address] [place], [address] Carbon dioxide, total [Moles /volume] in Central venous bloodOrdered By: Rudy Ortiz on 06-08-2025 CO2 [Moles/Vol] 20.9 mmol/L Low 21.0-32.0 [facility] Chloride assayOrdered By: Sailaja Ortiz on 06-08-2025 Chloride [Moles/Vol] 105 mmol/L 98-108 [facility] Comprehensive Metabolic Prof ilon 06-08-2025 Albumin [Mass/Vol] 4.3 g/dL Normal 3.4-4.8 [facility] Comment on above: Performed By: #### L 503.6030, L511.0135, L101.9900, L100.0100, L501.6710, L9999.0020, L500.4050, L3100.1350, L100.9950 ####[facility] [address] [place], [address] Albumin/Globulin [Mass ratio] 1.6 {ratio} Normal 0.9-2.4 [facility] Comment on above: Performed By: #### L 503.6030, L511.0135, L101.9900, L100.0100, L501.6710, L9999.0020, L500.4050, L3100.1350, L100.9950 ####[facility] [address] [place], [address] ALK PHOS 85 U/L Normal 35-104 [facility] Comment on above: Performed By: #### L 503.6030, L511.0135, L101.9900, L100.0100, L501.6710, L9999.0020, L500.4050, L3100.1350, L100.9950 ####[facility] [address] [place], [address] ALT [Catalytic activity/Vol] 31 U/L Normal <=34 [facility] Comment on above: Performed By: #### L 503.6030, L511.0135, L101.9900, L100.0100, L501.6710, L9999.0020, L500.4050, L3100.1350, L100.9950 ####[facility] [address] [place], [address] AST [Catalytic activity/Vol] 22 U/L Normal <=31 [facility] Comment on above: Performed By: #### L 503.6030, L511.0135, L101.9900, L100.0100, L501.6710, L9999.0020, L500.4050, L3100.1350, L100.9950 ####[facility] [address] [place], [place], [phone] Bilirubin [Mass/Vol] 0.29 mg/dL Normal 0.00-1.30 [facility] Comment on above: Performed By: #### L 503.6030, L511.0135, L101.9900, L100.0100, L501.6710, L9999.0020, L500.4050, L3100.1350, L100.9950 ####[facility] [address] [place], [place], [phone] BUN/CRE 23.2 RATIO High 10-20 [facility] Comment on above: Performed By: #### L 503.6030, L511.0135, L101.9900, L100.0100, L501.6710, L9999.0020, L500.4050, L3100.1350, L100.9950 ####[facility] [address] [place], [place], [phone] Calcium [Mass/Vol] 9.6 mg/dL Normal 7.6-11.0 [facility] Comment on above: Performed By: #### L 503.6030, L511.0135, L101.9900, L100.0100, L501.6710, L9999.0020, L500.4050, L3100.1350, L100.9950 ####[facility] [address] [place], [address] Chloride [Moles/Vol] 105 mmol/L Normal 98-108 [facility] Comment on above: Performed By: #### L 503.6030, L511.0135, L101.9900, L100.0100, L501.6710, L9999.0020, L500.4050, L3100.1350, L100.9950 ####[facility] [address] [place], [address] CO2 [Moles/Vol] 20.9 mmol/L Low 21.0-32.0 [facility] Comment on above: Performed By: #### L 503.6030, L511.0135, L101.9900, L100.0100, L501.6710, L9999.0020, L500.4050, L3100.1350, L100.9950 ####[facility] [address] [place], [address] Creatinine [Mass/Vol] 0.81 mg/dL Normal 0.70-1.20 [facility] Comment on above: Performed By: #### L 503.6030, L511.0135, L101.9900, L100.0100, L501.6710, L9999.0020, L500.4050, L3100.1350, L100.9950 ####[facility] [address] [place], [address] GAP 14 Normal 5-15 [facility] Comment on above: Performed By: #### L 503.6030, L511.0135, L101.9900, L100.0100, L501.6710, L9999.0020, L500.4050, L3100.1350, L100.9950 ####[facility] [address] [place], [address] GFR/1.73 sq M.predicted among non-blacks MDRD (S/P/Bld) [Vol rate/Area] 77 mL/min/{1.73_m2} Normal >60 [facility] Comment on above: Result Comment: mL/m in/1.73m2 CKD-EPI Creatinine Equation (2020) Performed By: #### L 503.6030, L511.0135, L101.9900, L100.0100, L501.6710, L9999.0020, L500.4050, L3100.1350, L100.9950 ####[facility] [address] [place], [address] Globulin (S) [Mass/Vol] 2.8 g/dL Normal 2.2-4.2 [facility] Comment on above: Performed By: #### L 503.6030, L511.0135, L101.9900, L100.0100, L501.6710, L9999.0020, L500.4050, L3100.1350, L100.9950 ####[facility] [address] [place], [address] Glucose [Mass/Vol] 103 mg/dL High 70-99 [facility] Comment on above: Performed By: #### L 503.6030, L511.0135, L101.9900, L100.0100, L501.6710, L9999.0020, L500.4050, L3100.1350, L100.9950 ####[facility] [address] [place], [address] Potassium [Moles/Vol] 3.9 mmol/L Normal 3.3-5.1 [facility] Comment on above: Performed By: #### L 503.6030, L511.0135, L101.9900, L100.0100, L501.6710, L9999.0020, L500.4050, L3100.1350, L100.9950 ####[facility] [address] [place], [address] Sodium [Moles/Vol] 139 mmol/L Normal 133-145 [facility] Comment on above: Performed By: #### L 503.6030, L511.0135, L101.9900, L100.0100, L501.6710, L9999.0020, L500.4050, L3100.1350, L100.9950 ####[facility] [address] [place], [address] T PROT 7.1 g/dL Normal 5.9-8.4 [facility] Comment on above: Performed By: #### L 503.6030, L511.0135, L101.9900, L100.0100, L501.6710, L9999.0020, L500.4050, L3100.1350, L100.9950 ####[facility] [address] [place], [address] Urea nitrogen [Mass/Vol] 19 mg/dL Normal 4-19 [facility] Comment on above: Performed By: #### L 503.6030, L511.0135, L101.9900, L100.0100, L501.6710, L9999.0020, L500.4050, L3100.1350, L100.9950 ####[facility] [address] [place], [place], [phone] D-Dimer Quantitative (DVT/PE )on 06-08-2025 D-DIMER QUANT 0.27 FEU/ug/m Normal 0.27-0.49 [facility] Comment on above: Result Comment: NORM AL D-Dimer level (<0.50) indicates no DVT or PE. Performed By: #### L 504.2610, L500.4050, L100.0100 #### [facility] [address] [place], [place], [phone] Eosinophil percentageOrdered By: Rudy Ortiz on 06-08-2025 Eosinophils/100 WBC (Bld) 2.7 % 0-5 [facility] Erythrocyte Sed Rateon 06-08 SED RATE 13 mm/hr Normal 0-30 [facility] Comment on above: Performed By: #### L 503.6030, L511.0135, L101.9900, L100.0100, L501.6710, L9999.0020, L500.4050, L3100.1350, L100.9950 ####[facility] [address] [place], [place], [phone] Erythrocyte distribution wid th ratioOrdered By: Rudy Ortiz on 06-08-2025 Erythrocyte distribution width (RBC) [Ratio] 14.1 % 11.6-14.6 [facility] Erythrocyte distribution wid th standard deviationOrdered By: [facility] on [facility]-2025 Erythrocyte distribution width (RBC) [Ratio] 46.8 fl High 35.1-43.9 [facility] Erythrocyte sedimentation ra teOrdered By: Rudy Ortiz on 06-08-2025 ESR (Bld) [Velocity] 13 mm/h 0-30 [facility] Ferritinon 06-08-2025 Ferritin [Mass/Vol] 155 ng/mL Normal 22-378 [facility] Comment on above: Performed By: #### L 504.2610, L500.4050, L100.0100 #### [facility] [address] [place], [address] Glomerular filtration rate ( GFR) estimation/1.73 sq m using serum, plasma, or whole bOrdered By: Rudy Ortiz on 06-08-2025 GFR/1.73 sq M.predicted among non-blacks MDRD (S/P/Bld) [Vol rate/Area] 77 mL/min/{1.73_m2} >60 [facility] Comment on above: mL/min/1.73m2 CKD-EP I Creatinine Equation (2020) Hematocrit Auto (Bld) [Volum e fraction]Ordered By: Rudy Angel on 06-08-2025 Hematocrit (Bld) [Volume fraction] 48.0 % High 37-47 [facility] Hemoglobin measurementOrdere d By: Rudy Ortiz on 06-08-2025 Hemoglobin (Bld) [Mass/Vol] 16.8 g/dL High 12.0-15.0 [facility] Immature granulocytes/100 WB C Auto (Bld)Ordered By: Rudy Ortiz on 06-08-2025 Immature granulocytes/100 WBC (Bld) 0.300 % 0.0-0.9 [facility] Comment on above: IG% - Immature Granu locytes (promyelocytes, myelocytes and metamyelocytes) > 1% indicates that a LEFT SHIFT is Present. International normalized rat io (INR) calculationOrdered By: Rudy Ortiz on 06-08-2025 INR Coag (Bld) [Relative time] 1.0 {INR} [facility] Iron measurement (mass/mass) Ordered By: Rudy Ortiz on 06-08-2025 Iron (Unsp spec) [Mass/Mass] 91 ug/dL 50-170 [facility] Iron+Iron Binding Capacityon 06-08-2025 Iron [Mass/Vol] 91 ug/dL Normal 50-170 [facility] Comment on above: Performed By: #### L 503.6030, L511.0135, L101.9900, L100.0100, L501.6710, L9999.0020, L500.4050, L3100.1350, L100.9950 ####[facility] [address] [place], [place], [id number] IRON SATURATION 26.0 Normal 13-59 [facility] Comment on above: Performed By: #### L 503.6030, L511.0135, L101.9900, L100.0100, L501.6710, L9999.0020, L500.4050, L3100.1350, L100.9950 ####[facility] [address] [place], [address] TIBC 353 ug/dL Normal 250-450 [facility] Comment on above: Performed By: #### L 503.6030, L511.0135, L101.9900, L100.0100, L501.6710, L9999.0020, L500.4050, L3100.1350, L100.9950 ####[facility] [address] [place], [address] UIBC 262 ug/dL Normal 228-428 [facility] Comment on above: Performed By: #### L 503.6030, L511.0135, L101.9900, L100.0100, L501.6710, L9999.0020, L500.4050, L3100.1350, L100.9950 ####[facility] [address] [place], [address] L9999.0020on 06-08-2025 COHb Order ORDER TUBE Normal [facility] Comment on above: Performed By: #### L 503.6030, L511.0135, L101.9900, L100.0100, L501.6710, L9999.0020, L500.4050, L3100.1350, L100.9950 ####[facility] [address] [place], [address] LDHon 06-08-2025 LDH 175 U/L Normal 84-246 [facility] Comment on above: Order Comment: 1 Result Comment: Hemo lysis present, Results??could be affected. ?? Performed By: #### L 504.2610, L500.4050, L100.0100 #### [facility] [address] [place], [address] Laboratory - Chemistry and C hemistry - challengeOrdered By: Rudy Ortiz on 06-08-2025 AST [Catalytic activity/Vol] 22 U/L <32 [facility] - Specimen inform ationOrdered By: Rudy Ortiz on 06-08-2025 Number of specimens obtained (Unsp spec) [#] ORDER TUBE [facility] Lactate dehydrogenase (LDH) measurementOrdered By: Rudy Ortiz on 06-08-2025 LDH [Catalytic activity/Vol] 175 U/L 84-246 [facility] Comment on above: Hemolysis present, R esults could be affected. MCV (mean corpuscular volume ) determinationOrdered By: Rudy Ortiz on 06-08-2025 MCV (RBC) [Entitic vol] 90.2 fL 81-99 [facility] Mean corpuscular hemoglobin (MCH) determinationOrdered By: Rudy Ortiz on 06-08-2025 MCH (RBC) [Entitic mass] 31.6 pg 27.0-32.0 [facility] Mean corpuscular hemoglobin concentration (MCHC) determinationOrdered By: Rudy Ortiz on 06-08-2025 MCHC (RBC) [Mass/Vol] 35.0 g/dL 32-36 [facility] Mean platelet volume determi nationOrdered By: Rudy Ortiz on 06-08-2025 Platelet mean volume (Bld) [Entitic vol] 9.7 fL 6.2-12.0 [facility] Monocyte percentageOrdered B y: Rudy Ortiz on 06-08-2025 Monocytes/100 WBC (Bld) 11.1 % High 0-10 [facility] Neutrophil percentageOrdered By: Rudy Ortiz on 06-08-2025 Neutrophils/100 WBC (Bld) 66.5 % 47-70 [facility] No Panel InformationOrdered By: Rudy Ortiz on 06-08-2025 Unsaturated Iron Binding Capacity 262 ug/dL 228-428 [facility] Nucleated red blood cell per centageOrdered By: Rudy Ortiz on 06-08-2025 Nucleated RBC/100 WBC (Bld) [Ratio] 0 % 0-5 [facility] Oncology Visit Reporton 05-23 Oncology Visit Report [facility] [address] [place] [address] OFFICE VISIT Date of Service: 06/08/25 1521 MR#: [id number] Acct: [id number] Name: PARVIZ TRACY Rep #: [id number] : 1950 From: Rudy Ortiz MD Age/Sex: 75/F Location: [facility] [place] Status: Signed HPI Subjective Date of Service 06/08/25 Chief Complaint Referred for evaluation of polycythemia. History of Present Illness 75-year-old woman has had mild polycythemia since 2014. She had JAK2 V6 17F done on 03/18/2023 which was negative. Erythropoietin level at that time was 13.8. Recently hemoglobin has been persistently above normal so referred for further evaluation. She denied smoking, drinking alcohol. Had JAK2 with reflex, MPL done and comes for follow up. [facility] Medical History Hypertension Hand pain, right Elevated hemoglobin Atrial fibrillation Wears glasses Thyroid disease Arthritis DVT (deep venous thrombosis) Restless legs Non-smoker CPAP (continuous positive airway pressure) dependence Sleep apnea Shortness of breath on exertion History of edema History of CHF (congestive heart failure) History of stress test History of echocardiogram Cardiology follow-up encounter History of atrial fibrillation Cataract (lens) fragments in eye following cataract surgery, bilateral Cancer Atrial fibrillation with rapid ventricular response (03/14/22) Hypothyroidism H/O Mohs micrographic surgery for skin cancer Diastolic dysfunction SVT (supraventricular tachycardia) Surgical History History of bilateral carpal tunnel release History of right breast biopsy ( 2010) History of D C History of wisdom tooth extraction Hx of tubal ligation History of arthroplasty of left shoulder S/P lumbar microdiscectomy S/P tonsillectomy History of right knee joint replacement Social History household members: spouse current occupational status: retired Smoking Status: Never smoker alcohol intake: never substance use type: does not use Intake Vital Signs 05/18/25 15:35 06/08/25 15:23 Height 5 ft 4 in 5 ft 4 in Weight: 115.354 kg 115.666 kg BMI 43.6 43.7 BP 131/85 H 145/83 H Blood Pressure Location Rt brachial Rt radial Position Sitting Sitting Respiration 15 18 Pulse 71 62 Pulse Source Monitor Monitor Temp 95.3 F L 98.4 F Temperature Source Temporal Artery Temporal Artery Pulse Oximetry (%) 95 93 Oxygen Delivery Method room air room air Intake Accompanied by: Self Is patient in pain?: No Allergies adhesive Allergy (Verified 06/08/25 15:30) Rash atenolol Allergy (Verified 06/08/25 15:30) NEEDS FOLLOW-UP egg Allergy (Verified 06/08/25 15:30) Rash risedronate sodium (From Actonel) Allergy (Verified 06/08/25 15:30) Swelling Sulfa (Sulfonamide Antibiotics) Allergy (Verified 06/08/25 15:30) Other DISPOSABLE STITCHES Allergy (Uncoded 06/08/25 15:30) Rash Medications ???Medication ???Instructions ???Recorded ???Confirmed ???Type diltiazem HCl 120 mg 120 mg PO DAILY BP 03/12/19 History capsule,extended release 24 hr, controlled (DILT-XR) biotin 5 mg tablet 5 mg PO DAILY hair loss 07/25/20 0 06/08/25 History levothyroxine 75 mcg tablet 75 mcg PO DAILY thyroid 03/14/22 0 06/08/25 History (Euthyrox) metoprolol succinate 25 mg 25 mg PO DAILY #30 tabs 03/15/22 0 06/08/25 Rx tablet,extended release 24 hr calcium 600 mg (as 1 tab PO DAILY 02/17/24 06/08/25 H istory carbonate)-vitamin D3 5 mcg (200 unit) tablet (Calcium 600 + D(3)) clobetasol 0.05 % scalp solution 1 applic topical MOFR 02/17/24 History spironolactone 25 mg tablet 25 mg PO DAILY 02/17/24 06/08/25 H istory vitamins A,C,U-gkpl-zltrgo 2,148 1 tab PO BID 02/17/24 06/08/25 His tory mcg-113 mg-45 mg-17.4 mg tablet (Eye Multivitamin) apixaban 5 mg tablet (Eliquis) 5 mg PO BID 05/08/25 06/08/25 Hist ory cholecalciferol (vitamin D3) 50 2,000 unit PO DAILY supplement 06/08/25 History mcg (2,000 unit) capsule cyclosporine 0.05 % eye drops in a 1 drp ophthalmic (eye) 05/08/25 06/08/25 History dropperette (Restasis) furosemide 40 mg tablet 40 mg PO DAILY 05/08/25 06/08/25 H istory magnesium gluconate 12.5 mg 12.5 mg PO QDAY 05/08/25 06/08/25 History magnesium (250 mg) tablet Have you fallen in the past year?: No Central Venous Access Central Venous Access: No Coding Level of Care Code Off vis,est,level 3 Exam Problem Focused Diagnoses Polycythemia D75.1 Assessment and Plan Assessment and Plan (1) Polycythemia: Status: Chronic Comment: JAK2 V617 F is negative, JAK2 exon 1 (more content not included)... Normal [facility] Partial Thromboplast Timeon 06-08-2025 aPTT Coag (Bld) [Time] 27.8 s Normal 24.1-36.2 [facility] Comment on above: Performed By: #### L 504.2610, L500.4050, L100.0100 #### [facility] [address] [place], [address] Platelet countOrdered By: Sailaja Ortiz on 06-08-2025 Platelets (Bld) [#/Vol] 229 10*3/uL 150-450 [facility] Potassium measurement (mass/ volume)Ordered By: Rudy Ortiz on 06-08-2025 Potassium (Unsp spec) [Mass/Vol] 3.9 mmol/L 3.3-5.1 [facility] Prothrombin Time w/INRon INR Coag (PPP) [Relative time] 1.0 {INR} Normal [facility] Comment on above: Performed By: #### L 504.2610, L500.4050, L100.0100 #### [facility] [address] [place], [address] PT Coag (PPP) [Time] 13.7 s Normal 11.7-14.9 [facility] Comment on above: Performed By: #### L 504.2610, L500.4050, L100.0100 #### [facility] [address] [place], [place], [id number] Prothrombin timeOrdered By: Rudy Ortiz on 06-08-2025 PT Coag (PPP) [Time] 13.7 s 11.7-14.9 [facility] RBC Auto (Bld) [#/Vol]Ordere d By: Rudy Ortiz on 06-08-2025 RBC (Bld) [#/Vol] 5.32 10*6/uL 4.2-5.4 [facility] Retic Panelon 06-08-2025 IM RET FRACTION 5.50 Normal 3.00-15.90 [facility] Comment on above: Performed By: #### L 503.6030, L511.0135, L101.9900, L100.0100, L501.6710, L9999.0020, L500.4050, L3100.1350, L100.9950 ####[facility] [address] [place], [place], [id number] RET-HE 33.1 pg Normal 30-35 [facility] Comment on above: Performed By: #### L 503.6030, L511.0135, L101.9900, L100.0100, L501.6710, L9999.0020, L500.4050, L3100.1350, L100.9950 ####[facility] [address] [place], [place], [id number] Retic Count 1.51 High 0.5-1.5 [facility] Comment on above: Performed By: #### L 503.6030, L511.0135, L101.9900, L100.0100, L501.6710, L9999.0020, L500.4050, L3100.1350, L100.9950 ####[facility] [address] [place], [place], [id number] Reticulocyte hemoglobin equi valent (RET-He) measurementOrdered By: Rudy Ortiz on 06-08-2025 Hemoglobin (Reticulocytes) [Entitic mass] 33.1 pg 30-35 [facility] Reticulocytes Auto (Bld) [#/ Vol]Ordered By: Rudy Ortiz on 06-08-2025 Reticulocytes/100 RBC (Bld) 1.51 % High 0.5-1.5 [facility] Serum creatinine measurement (mass/volume)Ordered By: Rudy Ortiz on 06-08-2025 Creatinine [Mass/Vol] 0.81 mg/dL 0.70-1.20 [facility] Serum globulin measurementOr dered By: Rudy Ortiz on 06-08-2025 Globulin (S) [Mass/Vol] 2.8 g/dL 2.2-4.2 [facility] Serum glucose measurement (m ass/volume)Ordered By: Rudy Ortiz on 06-08-2025 Glucose [Mass/Vol] 103 mg/dL High 70-99 [facility] Serum or plasma C reactive p rotein measurement (mass/volume)Ordered By: Rudy Ortiz on 06-08-2025 CRP [Mass/Vol] 4.24 mg/L High 0.0-3.0 [facility] Serum or plasma alanine patel otransferase (ALT) measurementOrdered By: Rudy Ortiz on 06-08-2025 ALT [Catalytic activity/Vol] 31 U/L <35 [facility] Serum or plasma albumin natalio urement (mass/volume)Ordered By: Rudy Ortiz on 06-08-2025 Albumin [Mass/Vol] 4.3 g/dL 3.4-4.8 [facility] Serum or plasma albumin/glob ulin mass ratioOrdered By: Rudy Ortiz on 06-08-2025 Albumin/Globulin [Mass ratio] 1.6 {ratio} 0.9-2.4 [facility] Serum or plasma alkaline angela sphatase measurementOrdered By: Rudy Ortiz on 06-08-2025 ALP [Catalytic activity/Vol] 85 U/L 35-104 [facility] Serum or plasma calcium natalio urement (mass/volume)Ordered By: Rudy Ortiz on 06-08-2025 Calcium [Mass/Vol] 9.6 mg/dL 7.6-11.0 [facility] Serum or plasma erythropoiet in (EPO) measurement (units/volume)Ordered By: Rudy Ortiz on 06-08-2025 Erythropoietin (EPO) Qn 12.8 mIU/mL 2.6-18.5 [facility] Comment on above: Gilson Nanalysis UniC el DxI 800 Immunoassay SystemValues obtained with different assay methods or kits cannotbe used interchangeably. Results cannot be interpreted asabsolute evidence of the presence or absence of malignantdisease.Performed at: [address] [id number] Director: Glenn Martínez PhD, Phone: [phone] Serum or plasma ferritin jhon surement (mass/volume)Ordered By: Rudy Ortiz on 06-08-2025 Ferritin [Mass/Vol] 155 ng/mL 22-378 [facility] Serum or plasma iron saturat ion measurement (mass fraction)Ordered By: Rudy Ortiz on 06-08-2025 Iron saturation [Mass fraction] 26.0 % 13-59 [facility] Serum or plasma urea nitroge n measurement (mass/volume)Ordered By: Rudy Ortiz on 06-08-2025 Urea nitrogen [Mass/Vol] 19 mg/dL 4-19 [facility] Sodium levelOrdered By: Rahul Ortiz on 06-08-2025 Sodium [Moles/Vol] 139 mmol/L 133-145 [facility] Total proteinOrdered By: Mango Ortiz on 06-08-2025 Protein [Mass/Vol] 7.1 g/dL 5.9-8.4 [facility] White blood cell (WBC) count Ordered By: Rudy Ortiz on 06-08-2025 WBC (Bld) [#/Vol] 8.8 10*3/uL 4.4-11.0 [facility] Blood carboxyhemoglobin natalio urement (mass/volume)Ordered By: Rudy Ortiz on 06-03-2025 Carboxyhemoglobin (Bld) [Mass/Vol] 2.4 % High 0.0-1.5 [facility] L511.0135on 06-03-2025 COHb 2.4 High 0.0-1.5 [facility] Comment on above: Order Comment: enter ed incorrectly Result Comment: ente red incorrectly Performed By: #### L 504.2610, L500.4050, L100.0100 #### [facility] [address] [place], [address] L3410.9992on 05-29-2025 [facility] COMMENT Normal . [facility] Comment on above: Order Comment: [id number] 0JAK2 V671F W REFLEX-LAV WB-RMT Result Comment: Test Ordered: [id number] JAK2 V617F, reflex to E12-15 Test(s) [id number] V617F Result was developed and its performance characteristics determined by [facility]. It has not been cleared or approved by the Food and Drug Administration. Specimen Type Comment: HOLDEN Reference Range: . NOT PROVIDED JAK2 V617F Result Comment HOLDEN Reference Range: . NEGATIVE The JAK2 V617F mutation is not detected in the provided specimen of this individual. Results should be interpreted in conjunction with clinical and other laboratory findings for the most accurate interpretation. Reflex Comment HOLDEN Reference Range: . Reflex to JAK2 Exon 12-15 Mutation Analysis is indicated. E12-15 Result Comment HLODEN Reference Range: . NEGATIVE JAK2 mutations were not detected in exons 12, 13, 14 and 15. The G to T nucleotide change encoding the V617F mutation was not detected. This result does not rule out the presence of JAK2 mutation at a level below the detection sensitivity of this assay, the presence of other mutations outside the analyzed region of the JAK2 gene, or the presence of a myeloproliferative or other neoplasm. Result must be correlated with other clinical data for the most accurate diagnosis. V617F Rfx E12-15 Background Comment TG Reference Range: . Molecular testing of blood or bone marrow is useful in the evaluation of suspected myeloproliferative neoplasms (MPN). This test will assess for the JAK2 V617F (exon 14) mutation first and will reflex JAK2 exon 12 to 15 mutation analysis if the JAK2 V617F mutation is negative. The JAK2 (Janus kinase 2) gene encodes for a non- receptor protein tyrosine kinase that activates cytokine and growth factor signaling. The V617F (c.1849 G>T) mutation results in constitutive activation of JAK2 and downstream STAT5 and ERK signaling. The V617F mutation is observed in approximately 95% of polycythemia vera (PV), 60% of essential thrombocythemia (ET) and primary myelofibrosismia (PMF). It is also infrequently present (3-5%) in myelodysplastic syndrome, chronic myelomonocytic leukemia, and other atypical chronic myeloid disorders. A small percentage of JAK2 mutation positive patients (3.3%) contain other non-V617F mutations within exons 12 to 15. In particular, mutations in exon 12 of JAK2 have been described in approximately 3% of patients with PV. JAK2 mutation allele burden correlates with clinical phenotype, with low levels of mutant allele characterized by thrombocytosis, intermediate levels with erythrocytosis, and high mutant allele burden correlating with enhanced myelopoiesis of the BM, leukocytosis, increasing spleen size, and circulating IZ94-iocgitue cells. Limitations This assay has a sensitivity of approximately 1% VAF for JAK2 V617F, and 2.5% VAF for other mutations in JAK2 exons 12 to 15. Deletions in JAK2 up to 6 bp and insertions up to 34 bp have been detected in validation studies. Method Comment Reference Range: . Amplicon-based next generation sequencing. References Comment Reference Range: . Libertad N, Yoandy Y, Noreen H, Pepper S. Detection of mutations in JAK2 exons 12-15 by [place] sequencing. Int J Lab Hematol. 2016 Dec;38(1):34-41. doi: 10.1111/ijlh.85983. Epub 2014Aug 03. PMID: 14969108. Duaneer DA, Orgaryi A, Mehrdadermichelle R, Art J, Domi MJ, Amada Kim MM, Ashley CD, Marisol M, Franchesca JW. The 2016 revision to the World Health Organization classification of myeloid neoplasms and acute leukemia. Blood. 2016 April 10;127(20):2391-405. doi: 10.1182/ukrhm-5832-60-372402. Epub 2016 Mar 03. PMID: 24676895. Nadine W, Emily H, Zach X, Jordi CH, Zach HILL, Richard S, Salinas M. Mutation profile of JAK2 transcripts in patients with chronic myeloproliferative neoplasias. J Mol Diagn. 2009 Nov;11(1):49-53.doi: 10.2353/jmoldx.2009.672549. Epub 2007Nov 03. PMID: 11133629; PMCID: [id number]. NCCN Clinical Practice Guidelines in Oncology (NCCN Guidelines) Myeloproliferative Neoplasms Version 3.2021 - July 03, 2022. Mendez LUNA, manuscript editor. WHO classification of Tumours of Haematopoietic and Lymphoid Tissues. 4th edn. Guerra, Payton: International Agency for Research on Cancer; 2017. Dianne Ames. Primary myelofibrosis: 2020 update on diagnosis, risk-stratification and management. Am J Hematol. 2020;96(1):145-162. doi: 10.1002/ajh.89198. Ep2019Oct 24. PMID: 81102671. Lashawn W, Shannan Chua. Genetic basis and molecular pathophysiology of classical myeloproliferative neoplasms. Blood. 2017 Dec 9;129(6):667-679. doi: 10.1182/gaewq-7375-97-279931. Epub 2015Nov 18. PMID: 83232642. Director Review Comment Reference Range: . Thomas Gilmore, PhD, [facility] Director, Molecular Oncology [facility] [place] [address] Performed at: [facility] [address] [place], [place] [id number] Lab D (more content not included)... Performed By: #### L 504.2610, L500.4050, L100.0100 #### [facility] [address] [place], [address] L3410.9994on 05-25-2025 [facility]. 2 COMMENT Normal . [facility] Comment on above: Order Comment: [id number] 0MPL - LAV WB - RMT Result Comment: Test Ordered: [id number] MPL Mutation Analysis MPL Mutation Analysis Result: Comment HOLDEN Reference Range: . No MPL mutation was identified in the provided specimen of this individual. Results should be interpreted in conjunction with clinical and other laboratory findings for the most accurate interpretation. Background: Comment HOLDEN Reference Range: . MPL (myeloproliferative leukemia virus oncogene homology) belongs to the hematopoietin superfamily and enables its ligand thrombopoietin to facilitate both global hematopoiesis and megakaryocyte growth and differentiation. MPL W515 mutations are present in patients with primary myelofibrosis (PMF) and essential thrombocythemia (ET) at a frequency of approximately 5% and 1% respectively. The S505 mutation is detected in patients with hereditary thrombocythemia. Methodology: Comment Reference Range: . Genomic DNA was purified from the provided specimen. MPL gene region covering the S505N and W515L/K mutations were subjected to PCR amplification and bi-directional sequencing in duplicate to identify sequence variations. This assay has a sensitivity to detect approximately 20-25% population of cells containing the MPL mutations in a background of non-mutant cells. This assay will not detect the mutation below the sensitivity of this assay. Molecular- based testing is highly accurate, but as in any laboratory test, rare diagnostic errors may occur. References: Comment Reference Range: . 1. Shikha PALMA et al. (2006). HEI916 mutations in myeloproliferative and other myeloid disorders: a study of 1182 patients. Blood 108:5190-2802. 2. Sofia Dempsey and Wei MILLS. (2008). JAK2 and MPL mutations in myeloproliferative neoplasms: discovery and science. Leukemia 22:2395-8440. 3. Riley GOODSON et al. (2009). 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 Haematologica 94(10):1368- 1374. Director Review: Comment Reference Range: . Isamar Gilmore, PhD, [facility] Director, Molecular On[facility] [place] [address] This test was developed and its performance characteristics determined by [facility]. It has not been cleared or approved by the Food and Drug Administration. Performed at: [facility] - [facility] [address] [place], [place] [id number] Train Conductor: Jez Nazario [facility], Phone: [phone] Performed at: - [facility] [address] [place], [place] [id number] Train Conductor: Jez Nazario [facility], Phone: [phone] Performed at: [address] [id number] Train Conductor: Glenn Martínez PhD, Phone: [phone] Performed By: #### L 504.0190, L500.4050, L100.0100 #### [facility] [address] [place] [address]. [place], [address] Erythropoietinon 05-22-2025 ERYTHROPOIETIN 14.0 mIU/mL Normal 2.6-18.5 [facility] Comment on above: Result Comment: WriteOn UniCel DxI 800 Immunoassay System Values obtained with different assay methods or kits cannot be used interchangeably. Results cannot be interpreted as absolute evidence of the presence or absence of malignant disease. Performed at: [facility] [address] [id number] Train Conductor: Glenn Martínez PhD, Phone: [phone] Performed By: #### L 504.2895, L541.5970, L100.0100 #### [facility] [address] [place], [address] Absolute lymphocyte countOrd ered By: Rudy Ortiz on 05-18-2025 Lymphocytes Auto (Unsp spec) [#/Vol] 1.81 10*3/uL 0.83-4.51 [facility] Absolute neutrophil countOrd ered By: [facility] Neutrophils (Bld) [#/Vol] 5.5 10*3/uL 2.0-7.7 [facility] Anion gap in Serum or Plasma Ordered By: Rudy Ortiz on 05-18-2025 Anion gap [Moles/Vol] 14 mmol/L 5-15 [facility] Automated lymphocyte count a s percentage of total leukocytesOrdered By: Rudy Ortiz on 05-18-2025 Lymphocytes/100 WBC Auto (Unsp spec) 21.0 % 19-41 [facility] BUN/creatinine ratioOrdered By: Rudy Veronica on 05-18-2025 Urea nitrogen/Creatinine [Mass ratio] 25.2 mg/mg High 10-20 [facility] Basophil percentageOrdered B y: Rudy Ortiz on 05-18-2025 Basophils/100 WBC (Bld) 0.8 % 0-1 [facility] Bilirubin, totalOrdered By: [facility] on 05-18-2025 Bilirubin [Mass/Vol] 0.44 mg/dL 0.00-1.30 [facility] Blood carboxyhemoglobin natalio urement (mass/volume)Ordered By: Rudy Ortiz on 05-18-2025 Carboxyhemoglobin (Bld) [Mass/Vol] 2.4 % High 0.0-1.5 [facility] CBC W/Diff, Automatedon 06-2 Absolute Lymph 1.81 X10 3/uL Normal 0.83-4.51 [facility] Comment on above: Performed By: #### L 504.2610, L500.4050, L100.0100 #### [facility] [address] [place], [address] Absolute Neut 5.5 X10 3/uL Normal 2.0-7.7 [facility] Comment on above: Performed By: #### L 504.2610, L500.4050, L100.0100 #### [facility] [address] [place], [address] Basophils/100 WBC (Bld) 0.8 % Normal 0-1 [facility] Comment on above: Performed By: #### L 504.2610, L500.4050, L100.0100 #### [facility] [address] [place], [address] Eosinophils/100 WBC (Bld) 3.6 % Normal 0-5 [facility] Comment on above: Performed By: #### L 504.2610, L500.4050, L100.0100 #### [facility] [address] [place], [address] Erythrocyte distribution width (RBC) [Ratio] 13.8 % Normal 11.6-14.6 [facility] Comment on above: Performed By: #### L 504.2610, L500.4050, L100.0100 #### [facility] [address] [place], [address] Hematocrit (Bld) [Volume fraction] 49.0 % High 37-47 [facility] Comment on above: Performed By: #### L 504.2610, L500.4050, L100.0100 #### [facility] [address] [place], [address] Hemoglobin (Bld) [Mass/Vol] 16.8 g/dL High 12.0-15.0 [facility] Comment on above: Performed By: #### L 504.2610, L500.4050, L100.0100 #### [facility] [address] [place], [address] IG% 0.200 Normal 0.0-0.9 [facility] Comment on above: Result Comment: IG% - Immature Granulocytes (promyelocytes, myelocytes and metamyelocytes) > 1% indicates that a LEFT SHIFT is Present. Performed By: #### L 504.2610, L500.4050, L100.0100 #### [facility] [address] [place], [address] Lymphocytes/100 WBC (Bld) 21.0 % Normal 19-41 [facility] Comment on above: Performed By: #### L 504.2610, L500.4050, L100.0100 #### [facility] [address] [place], [address] MCH (RBC) [Entitic mass] 31.2 pg Normal 27.0-32.0 [facility] Comment on above: Performed By: #### L 504.2610, L500.4050, L100.0100 #### [facility] [address] [place], [address] MCHC (RBC) [Mass/Vol] 34.3 g/dL Normal 32-36 [facility] Comment on above: Performed By: #### L 504.2610, L500.4050, L100.0100 #### [facility] [address] [place], [address] MCV (RBC) [Entitic vol] 90.9 fL Normal 81-99 [facility] Comment on above: Performed By: #### L 504.2610, L500.4050, L100.0100 #### [facility] [address] [place], [address] Monocytes/100 WBC (Bld) 10.2 % High 0-10 [facility] Comment on above: Performed By: #### L 504.2610, L500.4050, L100.0100 #### [facility] [address] [place], [address] Neutrophils/100 WBC (Bld) 64.2 % Normal 47-70 [facility] Comment on above: Performed By: #### L 504.2610, L500.4050, L100.0100 #### [facility] [address] [place], [address] Nucleated RBC (Bld) [#/Vol] 0 10*3/uL Normal 0-5 [facility] Comment on above: Performed By: #### L 504.2610, L500.4050, L100.0100 #### [facility] [address] [place], [address] Platelet mean volume (Bld) [Entitic vol] 9.5 fL Normal 6.2-12.0 [facility] Comment on above: Performed By: #### L 504.2610, L500.4050, L100.0100 #### [facility] [address] [place], [address] Platelets (Bld) [#/Vol] 247 10*3/uL Normal 150-450 [facility] Comment on above: Performed By: #### L 504.2610, L500.4050, L100.0100 #### [facility] [address] [place], [address] RBC (Bld) [#/Vol] 5.39 10*6/uL Normal 4.2-5.4 [facility] Comment on above: Performed By: #### L 504.2610, L500.4050, L100.0100 #### [facility] [address] [place], [address] RDW SD 46.5 fl High 35.1-43.9 [facility] Comment on above: Performed By: #### L 504.2610, L500.4050, L100.0100 #### [facility] [address] [place], [address] WBC (Bld) [#/Vol] 8.6 10*3/uL Normal 4.4-11.0 [facility] Comment on above: Performed By: #### L 504.2610, L500.4050, L100.0100 #### [facility] [address] [place], [address] Carbon dioxide, total [Moles /volume] in Central venous bloodOrdered By: Rudy Ortiz on 05-18-2025 CO2 [Moles/Vol] 20.3 mmol/L Low 21.0-32.0 [facility] Chloride assayOrdered By: Sailaja Ortiz on 05-18-2025 Chloride [Moles/Vol] 104 mmol/L 98-108 [facility] Comprehensive Metabolic Prof ilon 05-18-2025 Albumin [Mass/Vol] 4.3 g/dL Normal 3.4-4.8 [facility] Comment on above: Performed By: #### L 504.2610, L500.4050, L100.0100 #### [facility] [address] [place], [address] Albumin/Globulin [Mass ratio] 1.6 {ratio} Normal 0.9-2.4 [facility] Comment on above: Performed By: #### L 504.2610, L500.4050, L100.0100 #### [facility] [address] [place], [address] ALK PHOS 86 U/L Normal 35-104 [facility] Comment on above: Performed By: #### L 504.2610, L500.4050, L100.0100 #### [facility] [address] [place], [address] ALT [Catalytic activity/Vol] 26 U/L Normal <=34 [facility] Comment on above: Performed By: #### L 504.2610, L500.4050, L100.0100 #### [facility] [address] [place], [address] AST [Catalytic activity/Vol] 21 U/L Normal <=31 [facility] Comment on above: Performed By: #### L 504.2610, L500.4050, L100.0100 #### [facility] [address] [place], [address] Bilirubin [Mass/Vol] 0.44 mg/dL Normal 0.00-1.30 [facility] Comment on above: Performed By: #### L 504.2610, L500.4050, L100.0100 #### [facility] [address] [place], [address] BUN/CRE 25.2 RATIO High 10-20 [facility] Comment on above: Performed By: #### L 504.2610, L500.4050, L100.0100 #### [facility] [address] [place], [address] Calcium [Mass/Vol] 9.7 mg/dL Normal 7.6-11.0 [facility] Comment on above: Performed By: #### L 504.2610, L500.4050, L100.0100 #### [facility] [address] [place], [address] Chloride [Moles/Vol] 104 mmol/L Normal 98-108 [facility] Comment on above: Performed By: #### L 504.2610, L500.4050, L100.0100 #### [facility] [address] [place], [address] CO2 [Moles/Vol] 20.3 mmol/L Low 21.0-32.0 [facility] Comment on above: Performed By: #### L 504.2610, L500.4050, L100.0100 #### [facility] [address] [place], [address] Creatinine [Mass/Vol] 0.78 mg/dL Normal 0.70-1.20 [facility] Comment on above: Performed By: #### L 504.2610, L500.4050, L100.0100 #### [facility] [address] [place], [address] GAP 14 Normal 5-15 [facility] Comment on above: Performed By: #### L 504.2610, L500.4050, L100.0100 #### [facility] [address] [place], [address] GFR/1.73 sq M.predicted among non-blacks MDRD (S/P/Bld) [Vol rate/Area] 81 mL/min/{1.73_m2} Normal >60 [facility] Comment on above: Result Comment: mL/m in/1.73m2 CKD-EPI Creatinine Equation (2020) Performed By: #### L 504.2610, L500.4050, L100.0100 #### [facility] [address] [place], [address] Globulin (S) [Mass/Vol] 2.8 g/dL Normal 2.2-4.2 [facility] Comment on above: Performed By: #### L 504.2610, L500.4050, L100.0100 #### [facility] [address] [place], [address] Glucose [Mass/Vol] 108 mg/dL High 70-99 [facility] Comment on above: Performed By: #### L 504.2610, L500.4050, L100.0100 #### [facility] [address] [place], [address] Potassium [Moles/Vol] 4.1 mmol/L Normal 3.3-5.1 [facility] Comment on above: Performed By: #### L 504.2610, L500.4050, L100.0100 #### [facility] [address] [place], [address] Sodium [Moles/Vol] 138 mmol/L Normal 133-145 [facility] Comment on above: Performed By: #### L 504.2610, L500.4050, L100.0100 #### [facility] [address] [place], [address] T PROT 7.0 g/dL Normal 5.9-8.4 [facility] Comment on above: Performed By: #### L 504.2610, L500.4050, L100.0100 #### [facility] [address] [place], [address] Urea nitrogen [Mass/Vol] 20 mg/dL High 4-19 [facility] Comment on above: Performed By: #### L 504.2610, L500.4050, L100.0100 #### [facility] [address] [place], [address] Eosinophil percentageOrdered By: Rudy Ortiz on 05-18-2025 Eosinophils/100 WBC (Bld) 3.6 % 0-5 [facility] Erythrocyte distribution wid th ratioOrdered By: Rudy Ortiz on 05-18-2025 Erythrocyte distribution width (RBC) [Ratio] 13.8 % 11.6-14.6 [facility] Erythrocyte distribution wid th standard deviationOrdered By: Rduy Ortiz on 05-18-2025 Erythrocyte distribution width (RBC) [Ratio] 46.5 fl High 35.1-43.9 [facility] Glomerular filtration rate ( GFR) estimation/1.73 sq m using serum, plasma, or whole bOrdered By: Rudy Ortiz on 05-18-2025 GFR/1.73 sq M.predicted among non-blacks MDRD (S/P/Bld) [Vol rate/Area] 81 mL/min/{1.73_m2} >60 [facility] Comment on above: mL/min/1.73m2 CKD-EP I Creatinine Equation (2020) Hematocrit Auto (Bld) [Volum e fraction]Ordered By: Rudy Ortiz on 05-18-2025 Hematocrit (Bld) [Volume fraction] 49.0 % High 37-47 [facility] Hemoglobin measurementOrdere d By: Rudy Ortiz on 05-18-2025 Hemoglobin (Bld) [Mass/Vol] 16.8 g/dL High 12.0-15.0 [facility] Immature granulocytes/100 WB C Auto (Bld)Ordered By: Rudy Ortiz on 05-18-2025 Immature granulocytes/100 WBC (Bld) 0.200 % 0.0-0.9 [facility] Comment on above: IG% - Immature Granu locytes (promyelocytes, myelocytes and metamyelocytes) > 1% indicates that a LEFT SHIFT is Present. L9999.0020on 05-18-2025 COHb Order 2.4 Normal [facility] Comment on above: Result Comment: AMENDED REPORT 05/18/25 0384 COHb Order previously reported as: ORDER TUBE Performed By: #### L 3100.1350, L511.0135, L9999.0020 ####[facility] [address] [place], [address] LDHon 05-18-2025 LDH 166 U/L Normal 84-246 [facility] Comment on above: Order Comment: 1 Performed By: #### L 504.2610, L500.4050, L100.0100 #### [facility] [address] [place], [address] Laboratory - Chemistry and C hemistry - challengeOrdered By: Rudy Ortiz on 05-18-2025 AST [Catalytic activity/Vol] 21 U/L <32 [facility] - Specimen inform ationOrdered By: Rudy Ortiz on 05-18-2025 Number of specimens obtained (Unsp spec) [#] 2.4 [facility] Comment on above: Previous reported re sult: ORDER TUBE Edited by: VITOR on 05/18/25:175 AMENDED REPORT 05/18/251753 COHb Order previously reported as: ORDER TUBE Lactate dehydrogenase (LDH) measurementOrdered By: Rudy Ortiz on 05-18-2025 LDH [Catalytic activity/Vol] 166 U/L 84-246 [facility] MCV (mean corpuscular volume ) determinationOrdered By: Rudy Ortiz on 05-18-2025 MCV (RBC) [Entitic vol] 90.9 fL 81-99 [facility] Mean corpuscular hemoglobin (MCH) determinationOrdered By: Rudy Ortiz on 05-18-2025 MCH (RBC) [Entitic mass] 31.2 pg 27.0-32.0 [facility] Mean corpuscular hemoglobin concentration (MCHC) determinationOrdered By: Rudy Ortiz on 05-18-2025 MCHC (RBC) [Mass/Vol] 34.3 g/dL 32-36 [facility] Mean platelet volume determi nationOrdered By: Rudy Ortiz on 05-18-2025 Platelet mean volume (Bld) [Entitic vol] 9.5 fL 6.2-12.0 [facility] Monocyte percentageOrdered B y: Rudy Ortiz on 05-18-2025 Monocytes/100 WBC (Bld) 10.2 % High 0-10 [facility] Neutrophil percentageOrdered By: Rudy Ortiz on 05-18-2025 Neutrophils/100 WBC (Bld) 64.2 % 47-70 [facility] Nucleated red blood cell per centageOrdered By: Rudy Ortiz on 05-18-2025 Nucleated RBC/100 WBC (Bld) [Ratio] 0 % 0-5 [facility] Oncology Visit Reporton 04-24 Oncology Visit Report [facility] [place] [address] OFFICE VISIT Date of Service: 05/18/25 1535 MR#: [id number] Acct: [id number] Name: PARVIZ TRACY Rep #: [id number] : 1950 From: Rudy Ortiz MD Age/Sex: 75/F Location: [facility] [place] Status: Signed HPI Subjective Date of Service 05/18/25 Chief Complaint Referred for evaluation of polycythemia. History of Present Illness 75-year-old woman has had mild polycythemia since 2014. She had JAK2 V6 17F done on 03/18/2023 which was negative. Erythropoietin level at that time was 13.8. Recently hemoglobin has been persistently above normal so referred for further evaluation. She denies smoking, drinking alcohol. [facility] Medical History Hypertension Hand pain, right Elevated hemoglobin Atrial fibrillation Wears glasses Thyroid disease Arthritis DVT (deep venous thrombosis) Restless legs Non-smoker CPAP (continuous positive airway pressure) dependence Sleep apnea Shortness of breath on exertion History of edema History of CHF (congestive heart failure) History of stress test History of echocardiogram Cardiology follow-up encounter History of atrial fibrillation Cataract (lens) fragments in eye following cataract surgery, bilateral Cancer Atrial fibrillation with rapid ventricular response (03/14/22) Hypothyroidism H/O Mohs micrographic surgery for skin cancer Diastolic dysfunction SVT (supraventricular tachycardia) Surgical History History of bilateral carpal tunnel release History of right breast biopsy ( 2010) History of D C History of wisdom tooth extraction Hx of tubal ligation History of arthroplasty of left shoulder S/P lumbar microdiscectomy S/P tonsillectomy History of right knee joint replacement Social History household members: spouse current occupational status: retired Smoking Status: Never smoker alcohol intake: never substance use type: does not use ROS Constitutional Constitutional: Reports systems reviewed and no addt'l complaints, except as documented Eyes Eyes: Reports systems reviewed and no addt'l complaints, except as documented ENT HEENT: Reports systems reviewed and no addt'l complaints, except as documented Cardiovascular Cardiovascular: Reports systems reviewed and no addt'l complaints, except as documented Respiratory/Chest Respiratory/Chest: Reports systems reviewed and no addt'l complaints, except as documented Gastrointestinal Gastrointestinal: Reports systems reviewed and no addt'l complaints, except as documented Genitourinary Genitourinary: Reports systems reviewed and no addt'l complaints, except as documented Musculoskeletal Musculoskeletal: Reports systems reviewed and no addt'l complaints, except as documented Integumentary Integumentary: Reports systems reviewed and no addt'l complaints, except as documented Neurologic Neurologic: Reports systems reviewed and no addt'l complaints, except as documented Psychiatric Psychiatric: Reports systems reviewed and no addt'l complaints, except as documented Endocrine Endocrinology: Reports systems reviewed and no addt'l complaints, except as documented Hematologic/Lymphatic Hematologic/Lymphatic: Reports systems reviewed and no addt'l complaints, except as documented Allergic/Immunologic Allergic/Immunologic: Reports systems reviewed and no addt'l complaints, except as documented Intake Vital Signs 03/16/24 17:24 05/18/25 15:35 Height 5 ft 4 in 5 ft 4 in Weight: 115.354 kg BMI 43.6 BP 131/85 H Blood Pressure Location Rt brachial Position Sitting Respiration 15 Pulse 71 Pulse Source Monitor Temp 95.3 F L Temperature Source Temporal Artery Pulse Oximetry (%) 95 Oxygen Delivery Method room air Intake Accompanied by: Self Is patient in pain?: No Allergies adhesive Allergy (Verified 05/18/25 15:41) Rash atenolol Allergy (Verified 05/18/25 15:41) NEEDS FOLLOW-UP egg Allergy (Verified 05/18/25 15:41) Rash risedronate sodium (From Actonel) Allergy (Verified 05/18/25 15:41) Swelling Sulfa (Sulfonamide Antibiotics) Allergy (Verified 05/18/25 15:41) Other DISPOSABLE STITCHES Allergy (Uncoded 05/18/25 15:41) Rash Medications ???Medication ???Instructions ???Recorded ???Confirmed ???Type diltiazem HCl 120 mg 120 mg PO DAILY BP 03/12/19 History capsule,extended release 24 hr, controlled (DILT-XR) biotin 5 mg tablet 5 mg PO DAILY hair loss 07/25/20 0 05/18/25 History levothyroxine 75 mcg tablet 75 mcg PO DAILY thyroid 03/14/22 0 05/18/25 History (Euthyrox) metoprolol succinate 25 mg 25 mg PO DAILY #30 tabs 03/15/22 0 05/18/25 Rx (more content not included)... Normal [facility] Platelet countOrdered By: Sailaja Ortiz on 05-18-2025 Platelets (Bld) [#/Vol] 247 10*3/uL 150-450 [facility] Potassium measurement (mass/ volume)Ordered By: Rudy Ortiz on 05-18-2025 Potassium (Unsp spec) [Mass/Vol] 4.1 mmol/L 3.3-5.1 [facility] RBC Auto (Bld) [#/Vol]Ordere d By: Rudy Ortiz on 05-18-2025 RBC (Bld) [#/Vol] 5.39 10*6/uL 4.2-5.4 [facility] Serum creatinine measurement (mass/volume)Ordered By: Rudy Ortiz on 05-18-2025 Creatinine [Mass/Vol] 0.78 mg/dL 0.70-1.20 [facility] Serum globulin measurementOr dered By: Rudy Ortiz on 05-18-2025 Globulin (S) [Mass/Vol] 2.8 g/dL 2.2-4.2 [facility] Serum glucose measurement (m ass/volume)Ordered By: Rudy Ortiz on 05-18-2025 Glucose [Mass/Vol] 108 mg/dL High 70-99 [facility] Serum or plasma alanine patel otransferase (ALT) measurementOrdered By: Rudy Ortiz on 05-18-2025 ALT [Catalytic activity/Vol] 26 U/L <35 [facility] Serum or plasma albumin natalio urement (mass/volume)Ordered By: Rudy Ortiz on 05-18-2025 Albumin [Mass/Vol] 4.3 g/dL 3.4-4.8 [facility] Serum or plasma albumin/glob ulin mass ratioOrdered By: Rudy Ortiz on 05-18-2025 Albumin/Globulin [Mass ratio] 1.6 {ratio} 0.9-2.4 [facility] Serum or plasma alkaline angela sphatase measurementOrdered By: Rudy Ortiz on 05-18-2025 ALP [Catalytic activity/Vol] 86 U/L 35-104 [facility] Serum or plasma calcium natalio urement (mass/volume)Ordered By: Rudy Ortiz on 05-18-2025 Calcium [Mass/Vol] 9.7 mg/dL 7.6-11.0 [facility] Serum or plasma erythropoiet in (EPO) measurement (units/volume)Ordered By: Rudy Ortiz on 05-18-2025 Erythropoietin (EPO) Qn 14.0 mIU/mL 2.6-18.5 [facility] Comment on above: Gilson Nanalysis UniC el DxI 800 Immunoassay SystemValues obtained with different assay methods or kits cannotbe used interchangeably. Results cannot be interpreted asabsolute evidence of the presence or absence of malignantdisease.Performed at: [facility] [email or web address] [id number] Director: Glenn Martínez PhD, Phone: [phone] Serum or plasma urea nitroge n measurement (mass/volume)Ordered By: Rudy Ortiz on 05-18-2025 Urea nitrogen [Mass/Vol] 20 mg/dL High 4-19 [facility] Sodium levelOrdered By: Rahul Ortiz on 05-18-2025 Sodium [Moles/Vol] 138 mmol/L 133-145 [facility] Total proteinOrdered By: Mango Ortiz on 05-18-2025 Protein [Mass/Vol] 7.0 g/dL 5.9-8.4 [facility] White blood cell (WBC) count Ordered By: Rudy Ortiz on 05-18-2025 WBC (Bld) [#/Vol] 8.6 10*3/uL 4.4-11.0 [facility] Stress Reporton 04-11-2025 Stress Report [facility] [address] [place] [address] MR#: [id number] Acct: [id number] Name: PARVIZ TRACY Rep #: [id number] : 1950 75 From: Ritesh Meraz MD Primary Care: Dr. Farnaz Simon MD Status: REG CLI Referring Dr: Sindi Roa [employer] SUPERVISOR [employer] SUPERVISOR-C Sex: F C Stress Test Report Pharmacologic myocardial perfusion stress test. 75-year-old lady with a history of shortness of breath Resting EKG demonstrates sinus rhythm with a rate of 61 bpm. Resting blood pressure is 122/78 mmHg. 0.4 mg of regadenoson was infused per usual protocol followed by rapid intravenous saline flush injection. Continuous EKG monitoring was performed. The maximum heart rate was 90 bpm which was 61% of max impacted heart rate the maximum workload was 1 metabolic equivalent. At rest there were no ST or T wave changes noted to suggest ischemia and at peak infusion nonspecific ST changes were noted which did not meet the criteria for ischemia. No clinical angina is noted. The final blood pressure was 114/75 mmHg. Myocardial perfusion protocol. 14.2 mCi of technetium 99m sestamibi was injected at rest. 0.4 mg of regadenoson was infused per usual protocol. At peak infusion 45 mCi of technetium 99m sestamibi was injected stress images were obtained stress and rest images were reconstructed and compared in the short axis vertical long and horizontal long axis. Gated images were also obtained. Perfusion SPECT analysis: Review of the stress images demonstrate normal uptake of tracer noted in all areas of the myocardium. The resting images similar demonstrated normal uptake of tracer noted in all areas of the myocardium. No areas of reversibility are noted to suggest ischemia and no previous infarct is noted. Gated SPECT analysis: The gated ejection fraction is 76%. Conclusion: Normal pharmacologic myocardial perfusion stress test. Preserved ejection fraction. 04/11/251746 Date Ritesh Meraz MD CC: LAVON Roa; Dr. Farnaz Simon MD Date Dictated: 04/11/251745 Date Transcribed: 04/11/251745 Precipitator: CO Signed Normal [facility] .Auto Diffon 03-20-2025 Basophil, Absolute 0.1 10 3/mcL Normal 0.0-0.3 [facility] Comment on above: Performed By: #### P BNP, ADIFF, CBC, GFR, LIPID, CMP, TSH, ANEU #### [facility] [address] [place], [place] [address] Basophils/100 WBC (Bld) 1.0 % Normal 0.0-2.5 [facility] Comment on above: Performed By: #### P BNP, ADIFF, CBC, GFR, LIPID, CMP, TSH, ANEU #### [address] [address] Eosinophil, Absolute 0.3 10 3/mcL Normal 0.0-0.7 [facility] Comment on above: Performed By: #### P BNP, ADIFF, CBC, GFR, LIPID, CMP, TSH, ANEU #### [address] [address] Eosinophils/100 WBC (Bld) 3.0 % Normal 0.0-6.0 [facility] Comment on above: Performed By: #### P BNP, ADIFF, CBC, GFR, LIPID, CMP, TSH, ANEU #### [address] [address] Lymphocyte, Absolute 1.7 10 3/mcL Normal 0.9-4.3 [facility] Comment on above: Performed By: #### P BNP, ADIFF, CBC, GFR, LIPID, CMP, TSH, ANEU #### [address] [address] Lymphocytes/100 WBC (Bld) 19.4 % Low 20.0-40.0 [facility] Comment on above: Performed By: #### P BNP, ADIFF, CBC, GFR, LIPID, CMP, TSH, ANEU #### [address] [address] Monocyte, Absolute 0.9 10 3/mcL Normal 0.1-1.4 [facility] Comment on above: Performed By: #### P BNP, ADIFF, CBC, GFR, LIPID, CMP, TSH, ANEU #### [address] [address] Monocytes/100 WBC (Bld) 10.0 % Normal 2.0-13.0 [facility] Comment on above: Performed By: #### P BNP, ADIFF, CBC, GFR, LIPID, CMP, TSH, ANEU #### [address] [address] Neutrophils/100 WBC (Bld) 66.6 % Normal 50.0-75.0 [facility] Comment on above: Performed By: #### P BNP, ADIFF, CBC, GFR, LIPID, CMP, TSH, ANEU #### [address] [address] .GFRon 03-20-2025 Estimated Glomerular Filtration Rate 79 ml/min/1.73sqm Normal [facility] Comment on above: Result Comment: Stages of Chronic Kidney Disease (CKD) Stage Description eGFR(ml/min/1.73 sq.m.) CKD 1 Normal kidney function or >=90 normal kindney function with possible kidney damage (ex. Proteinuria) CKD 2 Kidney damage with mild loss 60-89 of kidney function CKD 3a Mild to moderate loss of kidney 45-59 function CKD 3b Moderate to severe loss of 30-44 of kindey function CKD 4 Severe loss of kidney function 15-29 CKD 5 Kidney failure <15 Note: (go live 2024) the eGFR calculation was updated to the 2020 CKD-EPI creatinine equation without a race factor to calculate the eGFR results. Performed By: #### P BNP, ADIFF, CBC, GFR, LIPID, CMP, TSH, ANEU #### [address] [address] .NEUABSon 03-20-2025 Neutrophil, Absolute 5.9 10 3/mcL Normal 2.3-8.1 [facility] Comment on above: Performed By: #### P BNP, ADIFF, CBC, GFR, LIPID, CMP, TSH, ANEU #### [address] [address] CBCon 03-20-2025 Erythrocyte distribution width (RBC) [Ratio] 14.3 % Normal 11.5-15.5 [facility] Comment on above: Performed By: #### P BNP, ADIFF, CBC, GFR, LIPID, CMP, TSH, ANEU #### [address] [address] Hematocrit (Bld) [Volume fraction] 50.0 % High 34.0-46.0 [facility] Comment on above: Performed By: #### P BNP, ADIFF, CBC, GFR, LIPID, CMP, TSH, ANEU #### [address] [address] Hgb 17.0 G/dL High 12.0-16.0 [facility] Comment on above: Performed By: #### P BNP, ADIFF, CBC, GFR, LIPID, CMP, TSH, ANEU #### [address] [address] MCH (RBC) [Entitic mass] 31.3 pg Normal 27.0-33.0 [facility] Comment on above: Performed By: #### P BNP, ADIFF, CBC, GFR, LIPID, CMP, TSH, ANEU #### [address] [address] MCHC 34.0 G/dL Normal 32.0-36.0 [facility] Comment on above: Performed By: #### P BNP, ADIFF, CBC, GFR, LIPID, CMP, TSH, ANEU #### [address] [address] MCV (RBC) [Entitic vol] 92.0 fL Normal 80.0-99.0 [facility] Comment on above: Performed By: #### P BNP, ADIFF, CBC, GFR, LIPID, CMP, TSH, ANEU #### [address] [address] Platelet 237 10 3/mcL Normal 150-450 [facility] Comment on above: Performed By: #### P BNP, ADIFF, CBC, GFR, LIPID, CMP, TSH, ANEU #### [address] [address] Platelet mean volume (Bld) [Entitic vol] 7.7 fL Normal 6.6-10.5 [facility] Comment on above: Performed By: #### P BNP, ADIFF, CBC, GFR, LIPID, CMP, TSH, ANEU #### [address] [address] RBC 5.43 10 6/mcL High 4.10-5.30 [facility] Comment on above: Performed By: #### P BNP, ADIFF, CBC, GFR, LIPID, CMP, TSH, ANEU #### [address] [address] WBC 8.9 10 3/mcL Normal 4.5-10.8 [facility] Comment on above: Performed By: #### P BNP, ADIFF, CBC, GFR, LIPID, CMP, TSH, ANEU #### [address] [address] CMPon 03-20-2025 Albumin Level 3.8 G/dL Normal 3.4-4.8 [facility] Comment on above: Performed By: #### P BNP, ADIFF, CBC, GFR, LIPID, CMP, TSH, ANEU #### [address] [address] Albumin/Globulin [Mass ratio] 1.1 {ratio} Normal 1.1-2.5 [facility] Comment on above: Performed By: #### P BNP, ADIFF, CBC, GFR, LIPID, CMP, TSH, ANEU #### [address] [address] ALP [Catalytic activity/Vol] 98 U/L Normal 40-135 [facility] Comment on above: Performed By: #### P BNP, ADIFF, CBC, GFR, LIPID, CMP, TSH, ANEU #### [address] [address] ALT [Catalytic activity/Vol] 35 U/L Normal 14-59 [facility] Comment on above: Performed By: #### P BNP, ADIFF, CBC, GFR, LIPID, CMP, TSH, ANEU #### [address] [address] AST [Catalytic activity/Vol] 15 U/L Normal 10-40 [facility] Comment on above: Performed By: #### P BNP, ADIFF, CBC, GFR, LIPID, CMP, TSH, ANEU #### [address] [address] Bili Total 0.6 mg/dL Normal 0.2-1.0 [facility] Comment on above: Result Comment: Use of this assay is not recommended for patients undergoing treatment with eltrombopag due to the potential for falsely elevated results. Performed By: #### P BNP, ADIFF, CBC, GFR, LIPID, CMP, TSH, ANEU #### [place] [address] BUN/Creatinine Ratio 20 ratio Normal 7-27 [facility] Comment on above: Performed By: #### P BNP, ADIFF, CBC, GFR, LIPID, CMP, TSH, ANEU #### [place] [address] Calcium [Mass/Vol] 9.4 mg/dL Normal 8.4-10.2 [facility] Comment on above: Performed By: #### P BNP, ADIFF, CBC, GFR, LIPID, CMP, TSH, ANEU #### [place] [address] Chloride [Moles/Vol] 105 mmol/L Normal 98-107 [facility] Comment on above: Performed By: #### P BNP, ADIFF, CBC, GFR, LIPID, CMP, TSH, ANEU #### [place] [address] CO2 [Moles/Vol] 30 mmol/L Normal 23-31 [facility] Comment on above: Performed By: #### P BNP, ADIFF, CBC, GFR, LIPID, CMP, TSH, ANEU #### [place] [address] Creatinine [Mass/Vol] 0.79 mg/dL Normal 0.51-0.95 [facility] Comment on above: Performed By: #### P BNP, ADIFF, CBC, GFR, LIPID, CMP, TSH, ANEU #### [place] [address] Electrolyte Balance 5.0 mEq/L Normal 4.0-15.0 [facility] Comment on above: Performed By: #### P BNP, ADIFF, CBC, GFR, LIPID, CMP, TSH, ANEU #### [place] [address] Globulin 3.5 G/dL Normal 2.7-4.4 [facility] [facility] Comment on above: Performed By: #### P BNP, ADIFF, CBC, GFR, LIPID, CMP, TSH, ANEU #### [address] [address] Glucose [Mass/Vol] 91 mg/dL Normal 83-110 [facility] Comment on above: Performed By: #### P BNP, ADIFF, CBC, GFR, LIPID, CMP, TSH, ANEU #### [address] [address] Potassium [Moles/Vol] 4.5 mmol/L Normal 3.5-5.1 [facility] Comment on above: Performed By: #### P BNP, ADIFF, CBC, GFR, LIPID, CMP, TSH, ANEU #### [address] [address] Sodium [Moles/Vol] 140 mmol/L Normal 136-145 [facility] Comment on above: Performed By: #### P BNP, ADIFF, CBC, GFR, LIPID, CMP, TSH, ANEU #### [address] [address] Total Protein 7.3 G/dL Normal 6.4-8.2 [facility] Comment on above: Performed By: #### P BNP, ADIFF, CBC, GFR, LIPID, CMP, TSH, ANEU #### [address] [address] Urea nitrogen [Mass/Vol] 16 mg/dL Normal 7-18 [facility] Comment on above: Performed By: #### P BNP, ADIFF, CBC, GFR, LIPID, CMP, TSH, ANEU #### [address] [address] LABORATORYOrdered By: SYSTEM SYSTEM on 03-20-2025 Albumin BCP dye [Mass/Vol] 3.8 G/dL Normal 3.4 - 4.8 G/dL AO ADM SS Albumin/Globulin [Mass ratio] 1.1 {ratio} Normal 1.1 - 2.5 ratio AO ADM SS ALP [Catalytic activity/Vol] 98 U/L Normal 40 - 135 U/L AO ADM SS ALT With P-5'-P [Catalytic activity/Vol] 35 U/L Normal 14 - 59 U/L AO ADM SS AST With P-5'-P [Catalytic activity/Vol] 15 U/L Normal 10 - 40 U/L AO ADM SS Basophils (Bld) [#/Vol] 0.1 103/mcL Normal 0.0 - 0.3 10^3/mcL AO Workflow SS Basophils/100 WBC (Bld) 1.0 % Normal 0.0 - 2.5 % AO Workflow SS Bilirubin [Mass/Vol] 0.6 mg/dL Normal 0.2 - 1 .0 mg/dL AO ADM SS Comment on above: Interpretive Data: U se of this assay is not recommended for patients undergoing treatment with eltrombopag due to the potential for falsely elevated results. Calcium [Mass/Vol] 9.4 mg/dL Normal 8.4 - 10. 2 mg/dL AO ADM SS Chloride [Moles/Vol] 105 mmol/L Normal 98 - 10 7 mmol/L AO ADM SS CO2 [Moles/Vol] 30 mmol/L Normal 23 - 31 mmol/L AO ADM SS Creatinine [Mass/Vol] 0.79 mg/dL Normal 0.51 - 0.95 mg/dL AO ADM SS Electrolyte Balance 5.0 mEq/L Normal 4.0 - 15 .0 mEq/L AO ADM SS Eosinophil, Absolute 0.3 103/mcL Normal 0.0 - 0 .7 10^3/mcL AO Workflow SS Eosinophils/100 WBC (Bld) 3.0 % Normal 0.0 - 6.0 % AO Workflow SS Erythrocyte distribution width (RBC) [Ratio] 14.3 % Normal 11.5 - 15.5 % AO Workflow SS Estimated Glomerular Filtration Rate 79 ml/min/1.73sqm Invalid Interpretation Code AO Chemistry S Comment on above: Interpretive Data: Stages of Chronic Kidney Disease (CKD) Stage Description eGFR(ml/min/1.73 sq.m.) CKD 1 Normal kidney function or >=90 normal kindney function with possible kidney damage (ex. Proteinuria) CKD 2 Kidney damage with mild loss 60-89 of kidney function CKD 3a Mild to moderate loss of kidney 45-59 function CKD 3b Moderate to severe loss of 30-44 of kindey function CKD 4 Severe loss of kidney function 15-29 CKD 5 Kidney failure <15 Note: (go live 2024) the eGFR calculation was updated to the 2020 CKD-EPI creatinine equation without a race factor to calculate the eGFR results. Globulin 3.5 G/dL Normal 2.7 - 4.4 G/dL AO ADM SS Glucose [Mass/Vol] 91 mg/dL Normal 83 - 110 mg/dL AO ADM SS Hematocrit (Bld) [Volume fraction] 50.0 % High 34.0 - 46.0 % AO Workflow SS Hemoglobin (Bld) [Mass/Vol] 17.0 G/dL High 12.0 - 16.0 G/dL AO Workflow SS Lymphocytes (Bld) [#/Vol] 1.7 103/mcL Normal 0.9 - 4.3 10^3/mcL AO Workflow SS Lymphocytes/100 WBC (Bld) 19.4 % Low 20.0 - 40.0 % AO Workflow SS MCH (RBC) [Entitic mass] 31.3 pg Normal 27.0 - 33.0 pg AO Workflow SS MCHC 34.0 G/dL Normal 32.0 - 36.0 G/dL AO Workflow SS MCV (RBC) [Entitic vol] 92.0 fL Normal 80.0 - 99.0 fL AO Workflow SS Monocytes (Bld) [#/Vol] 0.9 103/mcL Normal 0.1 - 1.4 10^3/mcL AO Workflow SS Monocytes/100 WBC (Bld) 10.0 % Normal 2.0 - 13.0 % AO Workflow SS Natriuretic peptide.B prohormone N-Terminal [Mass/Vol] 105 pg/mL Normal 0 - 125 pg/mL AO ADM SS Comment on above: Interpretive Data: N T-proBNP results of less than 300 pg/mL effectively rules out acute congestive heart failure with 99% negative predictive value. Neutrophils (Bld) [#/Vol] 5.9 103/mcL Normal 2.3 - 8.1 10^3/mcL AO Workflow SS Neutrophils/100 WBC (Bld) 66.6 % Normal 50.0 - 75.0 % AO Workflow SS Platelet mean volume (Bld) [Entitic vol] 7.7 fL Normal 6.6 - 10.5 fL AO Workflow SS Platelets (Bld) [#/Vol] 237 103/mcL Normal 150 - 450 10^3/mcL AO Workflow SS Potassium [Moles/Vol] 4.5 mmol/L Normal 3.5 - 5.1 mmol/L AO ADM SS Protein [Mass/Vol] 7.3 G/dL Normal 6.4 - 8.2 G/dL AO ADM SS RBC (Bld) [#/Vol] 5.43 106/mcL High 4.10 - 5.30 10^6/mcL AO Workflow SS Sodium [Moles/Vol] 140 mmol/L Normal 136 - 145 mmol/L AO ADM SS TSH Qn 1.51 m[IU]/L Normal 0.36 - 3.74 mcIU/mL AO ADM SS Urea nitrogen [Mass/Vol] 16 mg/dL Normal 7 - 18 mg/dL AO ADM SS Urea nitrogen/Creatinine [Mass ratio] 20 ratio Normal 7 - 27 ratio AO ADM SS WBC (Bld) [#/Vol] 8.9 103/mcL Normal 4.5 - 10.8 10^3/mcL AO Workflow SS LABORATORYOrdered By: James Jacinto on 03-20-2025 Cholesterol [Mass/Vol] 161 mg/dL Normal 0 - 2 00 mg/dL AO ADM SS Comment on above: Interpretive Data: C holesterol Reference Interval: Less than 200 Desirable 200-239 Borderline high risk 240 and above High risk Cholesterol in HDL [Mass/Vol] 50 mg/dL Normal 40 - 60 mg/dL AO ADM SS Cholesterol in LDL [Mass/Vol] 84 mg/dL Normal 0 - 130 mg/dL AO ADM SS Triglyceride [Mass/Vol] 135 mg/dL Normal 0 - 150 mg/dL AO ADM SS Comment on above: Interpretive Data: T riglyceride Reference Interval: Less than 150 Normal 150-199 Borderline high risk 200-499 High risk 500 or higher Very high risk LIPIDon 03-20-2025 Cholesterol [Mass/Vol] 161 mg/dL Normal 0-200 [facility] Comment on above: Result Comment: Chol esterol Reference Interval: Less than 200 Desirable 200-239 Borderline high risk 240 and above High risk Performed By: #### P BNP, ADIFF, CBC, GFR, LIPID, CMP, TSH, ANEU #### [address] [place], [place] [address] Cholesterol in HDL [Mass/Vol] 50 mg/dL Normal 40-60 [facility] Comment on above: Performed By: #### P BNP, ADIFF, CBC, GFR, LIPID, CMP, TSH, ANEU #### [address] [address] Cholesterol in LDL [Mass/Vol] 84 mg/dL Normal 0-130 [facility] Comment on above: Performed By: #### P BNP, ADIFF, CBC, GFR, LIPID, CMP, TSH, ANEU #### [address] [address] Triglyceride [Mass/Vol] 135 mg/dL Normal 0-150 [facility] Comment on above: Result Comment: Trig lyceride Reference Interval: Less than 150 Normal 150-199 Borderline high risk 200-499 High risk 500 or higher Very high risk Performed By: #### P BNP, ADIFF, CBC, GFR, LIPID, CMP, TSH, ANEU #### [address] [address] PBNPon 03-20-2025 Natriuretic peptide B (Bld) [Mass/Vol] 105 pg/mL Normal 0-125 [facility] Comment on above: Result Comment: NT-p roBNP results of less than 300 pg/mL effectively rules out acute congestive heart failure with 99% negative predictive value. Performed By: #### P BNP, ADIFF, CBC, GFR, LIPID, CMP, TSH, ANEU #### [address] [address] TSHon 03-20-2025 TSH Qn 1.51 m[IU]/L Normal 0.36-3.74 [facility] Comment on above: Performed By: #### P BNP, ADIFF, CBC, GFR, LIPID, CMP, TSH, ANEU #### [address] [address] Thyroidon 02-22-2025 Thyroid [facility] Imaging Services [address] [place] [id number] Thyroid MR#: [id number] Acct: [id number] Name: JAVADPARVIZ SUE Rep #: [id number] : 1950 F 75 From: Mirlande Donald nd, MD PCP: Dr. Farnaz Simon MD Status: REG CLI Study: Thyroid Date of Exam: 02/22/25 Exam# [id number] Ordering Dr: Mikhail Cardenas MD PROCEDURE: THYROID 02/22/2025 REASON FOR EXAM: 75-year-old female, THYROID ONE YEAR F/U TECHNIQUE: Thyroid ultrasound COMPARISON: Thyroid ultrasound 02/24/2024. FINDINGS: Right thyroid lobe measures 4.3 x 1.7 x 1.5 cm. Left thyroid lobe measures 3.9 x 1.6 x 1.9 cm. Isthmus thickness is0.3 cm. Thyroid Size: Normal Background Echotexture: Homogeneous Thyroid Nodules: Benign colloid cysts within the bilateral thyroid lobes. Other: Normal lymph node measured within the left mid neck, which is normal in size and demonstrates normal hilar and cortical structure. US/Thyroid IMPRESSION: No suspicious thyroid nodules. Further dedicated follow-up is not indicated by ACR TI-RADS criteria. Reading Location: [facility] CC: Dr. Farnaz Simon MD; Dr. Mikhail Cardenas MD Precipitator: Signed Normal [facility] Echo Complete W/ Contraston 02-13-2025 Echo Complete W/ Contrast [facility] [address] [place] [address] Echo Complete W/ Contrast 02/13/25 1002 MR#: [id number] Acct: [id number] Name: PARVIZ TRACY Rep #: [id number] : 1950 74 From: Ritesh Meraz MD Attending Dr: Dr. Farnaz Simon MD Status: REG CLI Ordering Dr: Farnaz Simon MD Date: 02/13/25 Location: [facility] Sex: F C Admitted: Reason For Study Reason For Study: DYSPNEA Procedure This was a 2D Doppler, Color Flow transthoracic echocardiogram. The study was technically difficult. Due to body habitus. Contrast injection was performed. Exam performed in department. Left Ventricle Normal LV size. Left ventricular systolic function is normal. The left ventricular ejection fraction is 65 %. No regional wall motion abnormalities noted. Right Ventricle Normal RV size. Normal systolic function. Atria Normal left atrium. Normal right atrium. Mitral Valve Normal mitral valve. Tricuspid Valve Normal tricuspid valve. Aortic Valve Trisinus/trileaflet aortic valve. Mild focal aortic valve calcification. Pulmonic Valve The pulmonic valve is not well visualized. Great Vessels Normal aortic root. The pulmonary artery is normal size. Normal inferior vena cava. Pericardium/Pleural No pericardial effusion. Medication 22 gauge I.V. with prn adaptor inserted into right arm. Diluted definity 4.0ml given slow IV push to enhance endocardial definition. MMode/2D Measurements Calculations LVIDd: 4.7 cm IVSd: 0.86 cm Ao root diam: 3.6 cm LVIDs: 3.0 cm LVPWd: 0.88 cm RVDd: 3.2 cm FS: 34.8 % LAV(MOD-bp): 46.9 ml LVAd ap4: 29.8 cm2 LVAd ap2: 21.1 cm2 LAV(MOD-bp) Indexed: 21.8 ml/m2 LVLd ap4: 7.3 cm LVLd ap2: 6.4 cm LAV(MOD-sp2): 41.8 ml EDV(MOD-sp4): 101.6 ml EDV(MOD-sp2): 55.7 ml LAV(MOD-sp4): 49.0 ml EDV(sp4-el): 103.9 ml EDV(sp2-el): 58.5 ml LVAs ap4: 14.6 cm2 LVAs ap2: 13.2 cm2 LVLs ap4: 5.5 cm LVLs ap2: 5.6 cm ESV(MOD-sp4): 32.5 ml ESV(MOD-sp2): 25.3 ml ESV(sp4-el): 32.8 ml ESV(sp2-el): 26.3 ml EF(MOD-sp4): 68.0 % EF(MOD-sp2): 54.6 % EF(sp4-el): 68.4 % SV(MOD-sp4): 69.0 ml SV(MOD-sp2): 30.4 ml SV(sp4-el): 71.0 ml SI(MOD-sp4): 32.0 ml/m2 SI(MOD-sp2): 14.1 ml/m2 LA A4 area: 17.3 cm2 LA dimension(2D): 4.0 cm RA A4 area: 17.1 cm2 TAPSE: 2.4 cm Time Measurements MV dec time: 0.32 sec Doppler Measurements Calculations MV E max arlet: 74.9 cm/sec Lat Peak E' Arlet: 6.9 cm/sec Med Peak E' Arlet: 5.8 cm/sec MV A max arlet: 114.9 cm/sec E/E' lat: 10.9 E/E' med: 12.9 MV E/A: 0.65 MV dec slope: 236.0 cm/sec2 Ao V2 max: 145.4 cm/sec LV V1 max: 135.1 cm/sec Ao max P.5 mmHg LV V1 max P.3 mmHg Ao V2 mean: 97.9 cm/sec LV V1 mean P.8 mmHg Ao mean P.3 mmHg LV V1 mean: 90.2 cm/sec Ao V2 VTI: 29.4 cm LV V1 VTI: 28.3 cm AV (velocity ratio): 0.96 PA V2 max: 112.0 cm/sec PA V2 mean: 79.6 cm/sec ECHO/Echo Complete W/ Contrast Interpretation Summary Normal LV size. Left ventricular systolic function is normal. The left ventricular ejection fraction is 65 %. Contrast injection was performed. Ordering Physician: Farnaz Simon Referring Physician: Farnaz Simon Performed By: Asia Walker RDCS, RVT 02/13/25 1444 Date Ritesh Meraz MD CC: Dr. Farnaz Simon MD Date Dictated: 02/13/25 1002 Date Transcribed: 02/13/251443 Precipitator: Signed Normal [facility] Echocardiogram study reportO rdered By: Ritesh Meraz on 02-13-2025 Study report [facility] [address] [place] [address] Echo Complete W/ Contrast 02/13/25 1002 MR#: [id number] Acct: [id number] Name: PARVIZ TRACY Rep #:[id number] : 1950 74 From: Ritesh Hatch Attending Dr: Dr. Farnaz Simon MD Status: REG CLI Ordering Dr: Farnaz Simon MD Neto e: 02/13/25 Location: [facility] Sex: F C Admitted: Reason For Study Reason For Study: DYSPNEA Procedure This was a 2D Doppler, Color Flow transthoracic echocardiogram. The study was technically difficult. Due to body habitus. Contrast injection was performed. Exam performed in department. Left Ventricle Normal LV size. Left ventricular systolic function is normal. The left ventricular ejection fraction is 65 %. No regional wall motion abnormalities noted. Right Ventricle Normal RV size. Normal systolic function. Atria Normal left atrium. Normal right atrium. Mitral Valve Normal mitral valve. Tricuspid Valve Normal tricuspid valve. Aortic Valve Trisinus/trileaflet aortic valve. Mild focal aortic valve calcification. Pulmonic Valve The pulmonic valve is not well visualized. Great Vessels Normal aortic root. The pulmonary artery is normal size. Normal inferior vena cava. Pericardium/Pleural No pericardial effusion. Medication 22 gauge I.V. with prn adaptor inserted into right arm. Diluted definity 4.0ml given slow IV push to enhance endocardial definition. MMode/2D Measurements & Calculations LVIDd: 4.7 cm IVSd: 0.86 cm Ao root diam: 3.6 cm LVIDs: 3.0 cm LVPWd: 0.88 cm RVDd: 3.2 cm FS: 34.8 % LAV(MOD-bp): 46.9 ml LVAd ap4: 29.8 cm2 LVAd ap2: 21.1 cm2 LAV(MOD-bp) Indexed: 21.8 ml/m2 LVLd ap4: 7.3 cm LVLd ap2: 6.4 cm LAV(MOD-sp2): 41.8 ml EDV(MOD-sp4): 101.6 ml EDV(MOD-sp2): 55.7 ml LAV(MOD-sp4): 49.0 ml EDV(sp4-el): 103.9 ml EDV(sp2-el): 58.5 ml LVAs ap4: 14.6 cm2 LVAs ap2: 13.2 cm2 LVLs ap4: 5.5 cm LVLs ap2: 5.6 cm ESV(MOD-sp4): 32.5 ml ESV(MOD-sp2): 25.3 ml ESV(sp4-el): 32.8 ml ESV(sp2-el): 26.3 ml EF(MOD-sp4): 68.0 % EF(MOD-sp2): 54.6 % EF(sp4-el): 68.4 % SV(MOD-sp4): 69.0 ml SV(MOD-sp2): 30.4 ml SV(sp4-el): 71.0 ml SI(MOD-sp4): 32.0 ml/m2 SI(MOD-sp2): 14.1 ml/m2 LA A4 area: 17.3 cm2 LA dimension(2D): 4.0 cm RA A4 area: 17.1 cm2 TAPSE: 2.4 cm Time Measurements MV dec time: 0.32 sec Doppler Measurements & Calculations MV E max arlet: 74.9 cm/sec Lat Peak E' Arlet: 6.9 cm/sec Med Peak E' Arlet: 5.8 cm/sec MV A max arlet: 114.9 cm/sec E/E' lat: 10.9 E/E' med: 12.9 MV E/A: 0.65 MV dec slope: 236.0 cm/sec2 Ao V2 max: 145.4 cm/sec LV V1 max: 135.1 cm/sec Ao max P.5 mmHg LV V1 max P.3 mmHg Ao V2 mean: 97.9 cm/sec LV V1 mean P.8 mmHg Ao mean P.3 mmHg LV V1 mean: 90.2 cm/sec Ao V2 VTI: 29.4 cm LV V1 VTI: 28.3 cm AV (velocity ratio): 0.96 PA V2 max: 112.0 cm/sec PA V2 mean: 79.6 cm/sec ECHO/Echo Complete W/ Contrast Interpretation Summary Normal LV size. Left ventricular systolic function is normal. The left ventricular ejection fraction is 65 %. Contrast injection was performed. Ordering Physician: Farnaz Simon Referring Physician: Farnaz Simon Performed By: Asia Walker, TEENA, RVT 02/13/25 1444 Date _ Ritesh Meraz MD CC: Dr. Farnaz Simon MD ~ Date Dictated: 02/13/25 1002 Date Transcribed: 02/13/25 1444 Precipitator: Signed [facility] Work Phone: Albumin to globulin ratioOrd ered By: Farnaz Simon on 01-05-2025 Albumin/Globulin [Mass ratio] 1.0 {ratio} 0.9-2.4 [facility] BNP (brain natriuretic pepti de measurement)Ordered By: Farnaz Simon on 01-05-2025 Natriuretic peptide B (Bld) [Mass/Vol] 33.3 pg/mL 0-100 [facility] BNP,B-Type NATRIURETIC PEPTI [place] 01-05-2025 Natriuretic peptide B (Bld) [Mass/Vol] 33.3 pg/mL Normal 0-100 [facility] Comment on above: Performed By: #### L 503.6620 #### [facility] [address] [place], [place], [id number] Bilirubin, totalOrdered By: Farnaz Simon on 01-05-2025 Bilirubin [Mass/Vol] 0.60 mg/dL 0.20-1.00 [facility] Comment on above: For patients on eltr ombopag therapy, use of Dimension Lindsay TBIL is not recommended. Blood urea nitrogen (BUN)/cr eatinine ratioOrdered By: Farnaz Simon on 01-05-2025 Urea nitrogen/Creatinine [Mass ratio] 19.8 mg/mg 10-20 [facility] CBC-Complete Blood Cnt No Di ffon 01-05-2025 Erythrocyte distribution width (RBC) [Ratio] 14.0 % Normal 11.6-14.6 [facility] Comment on above: Order Comment: Order Date: 01/04/25 Order Info: [id number] - CBC Performed By: #### L 501.9520, L500.4100, L500.4050, L100.0500 #### [facility] [address] [place], [address] ( Hematocrit (Bld) [Volume fraction] 49.7 % High 37-47 [facility] Comment on above: Order Comment: Order Date: 01/04/25 Order Info: [id number] - CBC Performed By: #### L 501.9520, L500.4100, L500.4050, L100.0500 #### [facility] [address] [place], [address] Hemoglobin (Bld) [Mass/Vol] 16.6 g/dL High 12.0-15.0 [facility] Comment on above: Order Comment: Order Date: 01/04/25 Order Info: [id number] - CBC Performed By: #### L 501.9520, L500.4100, L500.4050, L100.0500 #### [facility] [address] [place], [address] MCH (RBC) [Entitic mass] 31.1 pg Normal 27.0-32.0 [facility] Comment on above: Order Comment: Order Date: 01/04/25 Order Info: [id number] - CBC Performed By: #### L 501.9520, L500.4100, L500.4050, L100.0500 #### [facility] [address] [place], [address] MCHC (RBC) [Mass/Vol] 33.4 g/dL Normal 32-36 [facility] Comment on above: Order Comment: Order Date: 01/04/25 Order Info: [id number] - CBC Performed By: #### L 501.9520, L500.4100, L500.4050, L100.0500 #### [facility] [address] [place], [address] MCV (RBC) [Entitic vol] 93.2 fL Normal 81-99 [facility] Comment on above: Order Comment: Order Date: 01/04/25 Order Info: [id number] - CBC Performed By: #### L 501.9520, L500.4100, L500.4050, L100.0500 #### [facility] [address] [place], [address] Platelet mean volume (Bld) [Entitic vol] 9.9 fL Normal 6.2-12.0 [facility] Comment on above: Order Comment: Order Date: 01/04/25 Order Info: [id number] - CBC Performed By: #### L 501.9520, L500.4100, L500.4050, L100.0500 #### [facility] [address] [place], [address] Platelets (Bld) [#/Vol] 244 10*3/uL Normal 150-450 [facility] Comment on above: Order Comment: Order Date: 01/04/25 Order Info: [id number] - CBC Performed By: #### L 501.9520, L500.4100, L500.4050, L100.0500 #### [facility] [address] [place], [address] RBC (Bld) [#/Vol] 5.33 10*6/uL Normal 4.2-5.4 [facility] Comment on above: Order Comment: Order Date: 01/04/25 Order Info: [id number] - CBC Performed By: #### L 501.9520, L500.4100, L500.4050, L100.0500 #### [facility] [address] [place], [address] RDW SD 47.9 fl High 35.1-43.9 [facility] Comment on above: Order Comment: Order Date: 01/04/25 Order Info: [id number] - CBC Performed By: #### L 501.9520, L500.4100, L500.4050, L100.0500 #### [facility] [address] [place], [address] WBC (Bld) [#/Vol] 8.0 10*3/uL Normal 4.4-11.0 [facility] Comment on above: Order Comment: Order Date: 01/04/25 Order Info: [id number] - CBC Performed By: #### L 501.9520, L500.4100, L500.4050, L100.0500 #### [facility] [address] [place], [address] Carbon dioxide measurementOr dered By: Farnaz Simon on 01-05-2025 CO2 [Moles/Vol] 25.0 mmol/L 21.0-32.0 [facility] Chloride measurementOrdered By: Farnaz Simon on 01-05-2025 Chloride [Moles/Vol] 106 mmol/L 98-107 [facility] Metabolic Prof ilon 01-05-2025 Albumin [Mass/Vol] 3.5 g/dL Normal 3.2-5.0 [facility] Comment on above: Order Comment: Order Date: 01/04/25 Order Info: [id number]- - CMP Order Info: - LIPID Order Info: [id number] - TSH Performed By: #### L 501.9520, L500.4100, L500.4050, L100.0500 #### [facility] [address] [place], [address] Albumin/Globulin [Mass ratio] 1.0 {ratio} Normal 0.9-2.4 [facility] Comment on above: Order Comment: Order Date: 01/04/25 Order Info: [id number] - CMP Order Info: - LIPID Order Info: [id number] - TSH Performed By: #### L 501.9520, L500.4100, L500.4050, L100.0500 #### [facility] [address] [place], [address] ALK P 84 U/L Normal 45-117 [facility] Comment on above: Order Comment: Order Date: 01/04/25 Order Info: [id number] - CMP Order Info: - LIPID Order Info: [id number] - TSH Performed By: #### L 501.9520, L500.4100, L500.4050, L100.0500 #### [facility] [address] [place], [address] ALT [Catalytic activity/Vol] 32 U/L Normal 13-56 [facility] Comment on above: Order Comment: Order Date: 01/04/25 Order Info: [id number] - CMP Order Info: - LIPID Order Info: [id number] - TSH Performed By: #### L 501.9520, L500.4100, L500.4050, L100.0500 #### [facility] [address] [place], [address] AST [Catalytic activity/Vol] 20 U/L Normal 15-37 [facility] Comment on above: Order Comment: Order Date: 01/04/25 Order Info: [id number]- - CMP Order Info: - LIPID Order Info: [id number] - TSH Performed By: #### L 501.9520, L500.4100, L500.4050, L100.0500 #### [facility] [address] [place], [address] Bilirubin [Mass/Vol] 0.60 mg/dL Normal 0.20-1.00 [facility] Comment on above: Order Comment: Order Date: 01/04/25 Order Info: [id number] - CMP Order Info: - LIPID Order Info: [id number] - TSH Result Comment: For patients on eltrombopag therapy, use of Dimension Lindsay TBIL is not recommended. Performed By: #### L 501.9520, L500.4100, L500.4050, L100.0500 #### [facility] [address] [place], [address] BUN/CRE 19.8 RATIO Normal 10-20 [facility] Comment on above: Order Comment: Order Date: 01/04/25 Order Info: [id number] - CMP Order Info: - LIPID Order Info: [id number] - TSH Performed By: #### L 501.9520, L500.4100, L500.4050, L100.0500 #### [facility] [address] [place], [address] CA,Total 9.1 mg/dL Normal 8.5-10.1 [facility] Comment on above: Order Comment: Order Date: 01/04/25 Order Info: [id number]- - CMP Order Info: - LIPID Order Info: [id number] - TSH Performed By: #### L 501.9520, L500.4100, L500.4050, L100.0500 #### [facility] [address] [place], [address] Chloride [Moles/Vol] 106 mmol/L Normal 98-107 [facility] Comment on above: Order Comment: Order Date: 01/04/25 Order Info: [id number] - CMP Order Info: [id number] - LIPID Order Info: [id number] - TSH Performed By: #### L 501.9520, L500.4100, L500.4050, L100.0500 #### [facility] [address] [place], [address] CO2 [Moles/Vol] 25.0 mmol/L Normal 21.0-32.0 [facility] Comment on above: Order Comment: Order Date: 01/04/25 Order Info: [id number]- - CMP Order Info: [id number] - LIPID Order Info: [id number] - TSH Performed By: #### L 501.9520, L500.4100, L500.4050, L100.0500 #### [facility] [address] [place], [address] Creatinine [Mass/Vol] 0.81 mg/dL Normal 0.55-1.02 [facility] Comment on above: Order Comment: Order Date: 01/04/25 Order Info: [id number]- - CMP Order Info: [id number] - LIPID Order Info: [id number] - TSH Result Comment: The validity of the calculated GFR GFRAA in patients over 70 years has not been determined. Clinical correlation is essential. Performed By: #### L 501.9520, L500.4100, L500.4050, L100.0500 #### [facility] [address] [place], [address] EST GFR - AA 90 mL/min Normal >60 [facility] Comment on above: Order Comment: Order Date: 01/04/25 Order Info: [id number]- - CMP Order Info: - LIPID Order Info: [id number] - TSH Result Comment: Afri can [place] GFR Calc Performed By: #### L 501.9520, L500.4100, L500.4050, L100.0500 #### [facility] [address] [place], [address] GAP 7 Normal 5-15 [facility] Comment on above: Order Comment: Order Date: 01/04/25 Order Info: [id number] - CMP Order Info: - LIPID Order Info: [id number] - TSH Performed By: #### L 501.9520, L500.4100, L500.4050, L100.0500 #### [facility] [address] [place], [address] GFR/1.73 sq M.predicted among non-blacks MDRD (S/P/Bld) [Vol rate/Area] 74 mL/min/{1.73_m2} Normal >60 [facility] Comment on above: Order Comment: Order Date: 01/04/25 Order Info: [id number] - CMP Order Info: - LIPID Order Info: [id number] - TSH Result Comment: Non- GFR Calc Performed By: #### L 501.9520, L500.4100, L500.4050, L100.0500 #### [facility] [address] [place], [address] Globulin (S) [Mass/Vol] 3.5 g/dL Normal 2.2-4.2 [facility] Comment on above: Order Comment: Order Date: 01/04/25 Order Info: [id number] - CMP Order Info: - LIPID Order Info: [id number] - TSH Performed By: #### L 501.9520, L500.4100, L500.4050, L100.0500 #### [facility] [address] [place], [address] Glucose [Mass/Vol] 105 mg/dL Normal 74-106 [facility] Comment on above: Order Comment: Order Date: 01/04/25 Order Info: [id number] - CMP Order Info: - LIPID Order Info: [id number] - TSH Result Comment: Fast ing Glucose result from 100 to 125 mg/dL suggests IMPAIRED HOMEOSTASIS per A.D.A. criteria. Performed By: #### L 501.9520, L500.4100, L500.4050, L100.0500 #### [facility] [address] [place], [address] Potassium [Moles/Vol] 4.6 mmol/L Normal 3.5-5.1 [facility] Comment on above: Order Comment: Order Date: 01/04/25 Order Info: [id number] - CMP Order Info: - LIPID Order Info: [id number] - TSH Performed By: #### L 501.9520, L500.4100, L500.4050, L100.0500 #### [facility] [address] [place], [address] Sodium [Moles/Vol] 138 mmol/L Normal 136-145 [facility] Comment on above: Order Comment: Order Date: 01/04/25 Order Info: [id number] - CMP Order Info: - LIPID Order Info: [id number] - TSH Performed By: #### L 501.9520, L500.4100, L500.4050, L100.0500 #### [facility] [address] [place], [address] T PROT 7.0 g/dL Normal 6.4-8.2 [facility] Comment on above: Order Comment: Order Date: 01/04/25 Order Info: [id number] - CMP Order Info: - LIPID Order Info: [id number] - TSH Performed By: #### L 501.9520, L500.4100, L500.4050, L100.0500 #### [facility] [address] [place], [place], [address] Urea nitrogen [Mass/Vol] 16 mg/dL Normal 7-18 [facility] Comment on above: Order Comment: Order Date: 01/04/25 Order Info: [id number] - CMP Order Info: [id number] - LIPID Order Info: [id number] - TSH Performed By: #### L 501.9520, L500.4100, L500.4050, L100.0500 #### [facility] [address] [place], [address] Erythrocyte distribution wid th ratioOrdered By: Farnaz Simon on 01-05-2025 Erythrocyte distribution width (RBC) [Ratio] 14.0 % 11.6-14.6 [facility] Erythrocyte distribution wid th standard deviationOrdered By: Farnaz Simon on 01-05-2025 Erythrocyte distribution width (RBC) [Entitic vol] 47.9 fL High 35.1-43.9 [facility] Estimated glomerular filtrat ion rate (GFR) AmericanOrdered By: Farnaz Simon on 01-05-2025 Estimated GFR (MDRD) Amer 90 mL/min >60 [facility] Comment on above: GFR Calc Glomerular filtration rate ( GFR) estimationOrdered By: Farnaz Simon on 01-05-2025 Estimated GFR (MDRD) Non-Af Amer 74 mL/min >60 [facility] Comment on above: Non- GFR Calc Glucose measurementOrdered B y: Farnaz Simon on 01-05-2025 Glucose [Mass/Vol] 105 mg/dL 74-106 [facility] Comment on above: Fasting Glucose resu lt from 100 to 125 mg/dL suggests IMPAIRED HOMEOSTASIS per A.D.A. criteria. Hematocrit Auto (Bld) [Volum e fraction]Ordered By: Farnaz Simon on 01-05-2025 Hematocrit (Bld) [Volume fraction] 49.7 % High 37-47 [facility] Hemoglobin measurementOrdere d By: Farnaz Simon on 01-05-2025 Hemoglobin (Bld) [Mass/Vol] 16.6 g/dL High 12.0-15.0 [facility] High density lipoprotein (HD L) measurementOrdered By: Farnaz Simon on 01-05-2025 Cholesterol in HDL [Mass/Vol] 51 mg/dL >40 [facility] Comment on above: The drugs N-Acetylcy steine and Metamizole may falsely depress this assay. Reference Range HDL <40 mg/dL Low HDL Cholesterol HDL >or= 60 mg/dL High HDL Cholesterol Laboratory - Chemistry and C hemistry - challengeOrdered By: Farnaz Simon on 01-05-2025 AST [Catalytic activity/Vol] 20 U/L 15-37 [facility] Lipid Profileon 01-05-2025 Cholesterol [Mass/Vol] 134 mg/dL Normal 200 [facility] Comment on above: Order Comment: Order Date: 01/04/25 Order Info: [id number] - CMP Order Info: [id number] - LIPID Order Info: [id number] - TSH Result Comment: <200 mg/dL Desirable 200-240 mg/dL Borderline >240 mg/dL High Risk Performed By: #### L 501.9520, L500.4100, L500.4050, L100.0500 #### [facility] [address] [place], [address] Cholesterol in HDL [Mass/Vol] 51 mg/dL Normal [facility] Comment on above: Order Comment: Order Date: 01/04/25 Order Info: [id number] - CMP Order Info: [id number] - LIPID Order Info: [id number] - TSH Result Comment: The drugs N-Acetylcysteine and Metamizole may falsely depress this assay. Reference Range HDL <40 mg/dL Low HDL Cholesterol HDL >or= 60 mg/dL High HDL Cholesterol Performed By: #### L 501.9520, L500.4100, L500.4050, L100.0500 #### [facility] [address] [place], [address] Cholesterol in LDL [Mass/Vol] 65 mg/dL Normal 0-130 [facility] Comment on above: Order Comment: Order Date: 01/04/25 Order Info: [id number] - CMP Order Info: [id number] - LIPID Order Info: [id number] - TSH Performed By: #### L 501.9520, L500.4100, L500.4050, L100.0500 #### [facility] [address] [place], [place], [id number] Cholesterol in VLDL [Mass/Vol] 18 mg/dL Normal 5-40 [facility] Comment on above: Order Comment: Order Date: 01/04/25 Order Info: [id number] - CMP Order Info: [id number] - LIPID Order Info: [id number] - TSH Performed By: #### L 501.9520, L500.4100, L500.4050, L100.0500 #### [facility] [address] [place], [place], [id number] Triglyceride [Mass/Vol] 90 mg/dL Normal [facility] Comment on above: Order Comment: Order Date: 01/04/25 Order Info: [id number] - CMP Order Info: [id number] - LIPID Order Info: [id number] - TSH Result Comment: The drugs N-Acetylcysteine and Metamizole may falsely depress this assay. Serum Triglycerides Reference Interval Normal <150 mg/dL Borderline high 150 - 199 mg/dL High 200 - 499 mg/dL Very High > or = 500 mg/dL Performed By: #### L 501.9520, L500.4100, L500.4050, L100.0500 #### [facility] [address] [place], [place], [id number] Low density lipoprotein (LDL ) cholesterol measurementOrdered By: Farnaz Simon on 01-05-2025 Cholesterol in LDL [Mass/Vol] 65 mg/dL 0-130 [facility] MCV (mean corpuscular volume ) determinationOrdered By: Farnaz Simon on 01-05-2025 MCV (RBC) [Entitic vol] 93.2 fL 81-99 [facility] Mean corpuscular hemoglobin (MCH) determinationOrdered By: Farnaz Simon on 01-05-2025 MCH (RBC) [Entitic mass] 31.1 pg 27.0-32.0 [facility] Mean corpuscular hemoglobin concentration (MCHC) determinationOrdered By: Farnaz Simon on 01-05-2025 MCHC (RBC) [Mass/Vol] 33.4 g/dL 32-36 [facility] Mean platelet volume determi nationOrdered By: Farnaz Simon on 01-05-2025 Platelet mean volume (Bld) [Entitic vol] 9.9 fL 6.2-12.0 [facility] Platelet countOrdered By: Danyell Simon on 01-05-2025 Platelets (Bld) [#/Vol] 244 10*3/uL 150-450 [facility] Potassium measurementOrdered By: Farnaz Siomn on 01-05-2025 Potassium [Moles/Vol] 4.6 mmol/L 3.5-5.1 [facility] RBC Auto (Bld) [#/Vol]Ordere d By: Farnaz Simon on 01-05-2025 RBC (Bld) [#/Vol] 5.33 10*6/uL 4.2-5.4 [facility] Serum anion gap measurementO rdered By: Farnaz Simon on 01-05-2025 Anion gap [Moles/Vol] 7 mmol/L 5-15 [facility] Serum globulin measurementOr dered By: Farnaz Simon on 01-05-2025 Globulin (S) [Mass/Vol] 3.5 g/dL 2.2-4.2 [facility] Serum or plasma alanine patel otransferase (ALT) measurementOrdered By: Farnaz Simon on 01-05-2025 ALT [Catalytic activity/Vol] 32 U/L 13-56 [facility] Serum or plasma albumin natalio urement (mass/volume)Ordered By: Farnaz Simon on 01-05-2025 Albumin [Mass/Vol] 3.5 g/dL 3.2-5.0 [facility] Serum or plasma alkaline angela sphatase measurementOrdered By: Farnaz Simon on 01-05-2025 ALP [Catalytic activity/Vol] 84 U/L 45-117 [facility] Serum or plasma calcium natalio urement (mass/volume)Ordered By: Farnaz Simon on 01-05-2025 Calcium [Mass/Vol] 9.1 mg/dL 8.5-10.1 [facility] Serum or plasma cholesterol measurement (mass/volume)Ordered By: Farnaz Simon on 01-05-2025 Cholesterol [Mass/Vol] 134 mg/dL <200 [facility] Comment on above: <200 mg/dL Desirable 200-240 mg/dL Borderline >240 mg/dL High Risk Serum or plasma creatinine m easurement (mass/volume)Ordered By: Farnaz Simon on 01-05-2025 Creatinine [Mass/Vol] 0.81 mg/dL 0.55-1.02 [facility] Comment on above: The validity of the calculated GFR & GFRAA in patients over 70 years has not been determined. Clinical correlation is essential. Serum or plasma urea nitroge n measurement (mass/volume)Ordered By: Farnaz Simon on 01-05-2025 Urea nitrogen [Mass/Vol] 16 mg/dL 7-18 [facility] Sodium levelOrdered By: Jackie Simon on 01-05-2025 Sodium [Moles/Vol] 138 mmol/L 136-145 [facility] TSH QnOrdered By: Arslan Simon on 01-05-2025 Thyroid Stimulating Hormone (TSH) 1.600 uIU/mL 0.358-3.74 0 [facility] Thyroid Stim Hormone (TSH)on 01-05-2025 TSH 1.600 uIU/mL Normal 0.358-3.74 0 [facility] Comment on above: Order Comment: Order Date: 01/04/25 Order Info: [id number] - CMP Order Info: [id number] - LIPID Order Info: [id number] - TSH Performed By: #### L 501.9554, L500.4100, L500.4050, L100.0500 #### [facility] [address] [place], [address] Total proteinOrdered By: Adelina Simon on 01-05-2025 Protein [Mass/Vol] 7.0 g/dL 6.4-8.2 [facility] Triglycerides measurementOrd ered By: Farnaz Simon on 01-05-2025 Triglyceride [Mass/Vol] 90 mg/dL <199 [facility] Comment on above: The drugs N-Acetylcy steine and Metamizole may falsely depress this assay.Serum Triglycerides Reference Interval Normal <150 mg/dL Borderline high 150 - 199 mg/dL High 200 - 499 mg/dL Very High > or = 500 mg/dL Very low density lipoprotein (VLDL) cholesterol measurementOrdered By: Farnaz Simon on 01-05-2025 VLDL Cholesterol 18 mg/dL 5-40 [facility] White blood cell (WBC) count Ordered By: Farnaz Simon on 01-05-2025 WBC (Bld) [#/Vol] 8.0 10*3/uL 4.4-11.0 [facility] Chest PA and Lateralon 01-04 Chest PA and Lateral [facility] [address] [place], [place] [address] Chest PA and Lateral MR#: [id number] Acct: [id number] Name: PARVIZ TRACY Rep #: [id number] : 1950 F 74 From: Wisam medley MD PCP: Dr. Farnaz Simon MD Status: REG CLI Study: Chest PA and Lateral Date of Exam: 01/04/25 Exam# [id number] Ordering Dr: Farnaz Simon PROCEDURE: CHEST PA AND LATERAL REASON FOR EXAM: Cough. TECHNIQUE: Frontal and lateral views of the chest. COMPARISON: CT dated 11/17/2023. FINDINGS: The heart size is normal. Aortic calcifications are noted. No acute consolidation, pleural effusion or pneumothorax. Status post right total shoulder replacement and left rotator cuff repair. RAD/Chest PA and Lateral IMPRESSION: No acute consolidation, pleural effusion or pneumothorax. Reading Location: [id number] CC: Dr. Farnaz Simon MD Precipitator: Signed Normal [facility] COLLEEN SCREENING W TOMOon 01-02 COLLEEN SCREENING W MALACHI * * *Final Report* * * DATE OF EXAM: Jan 02 2025 10:05AM WRW [id number] - COLLEEN SCREENING W MALACHI / PROCEDURE REASON: multiple diagnoses * * * * Physician Interpretation * * * * RESULT: [facility] [address] [place] [address] #[id number] - COLLEEN SCREENING W MALACHI HISTORY: 74 year-old patient seen for screening and is asymptomatic in both breasts. Patient states no personal history of breast cancer. Patient states no personal history of ovarian cancer. COMPARISON STUDIES: The present examination has been compared to prior imaging studies dated 01/23/2020 (mammogram), 02/11/2021 (mammogram), 02/17/2022 (mammogram) and 12/31/2023 (mammogram). MAMMOGRAM TECHNIQUE: The study was acquired using full field digital technology and interpreted from soft copy. Digital Breast Tomosynthesis (DBT) images were obtained and used to assist in the interpretation of this examination. MAMMOGRAM FINDINGS: There are scattered areas of fibroglandular density. Finding 1: There are post-operative changes in the right breast. Finding 2: There is a biopsy marker in the left breast. The study is limited in positioning due to the patient's limited mobility. No suspicious masses, calcifications or other abnormalities are seen in either breast. IMPRESSION: There is no mammographic evidence of malignancy. Routine screening mammogram is recommended. Annual mammogram will be due in 1 year. BI-RADS Category 2: Benign RISK: Based on the Tyrer-Cuzick (TC) risk assessment model, this patient has a 3.6% lifetime risk of developing breast cancer, meaning they are at average risk for developing breast cancer. However, this is only an estimate based on available history provided on the patient's questionnaire. We encourage all patients to talk with their providers about these results, further recommendations for managing breast health, and appropriate supplemental screening options if the patient has dense breast tissue. Interpreting Radiologist: Leander Sheridan M.D. Electronically signed on: 01/03/2025 Precipitator: GINNY Transcribe Date/Time: Jan 02 2025 9:19A Dictated by: LEANDER SHERIDAN MD This examination was interpreted and the report reviewed and electronically signed by: LEANDER SHERIDNA MD on Jan 03 2025 7:51AM EST [id number] Normal [facility] CNOVon 10-19-2024 CNOV Office Visit (OBGYWM ) PARVIZ TRACY ([id number]) 1950 F Date Time Provider Department 10/19/24 8:40 AM RBOERT GARSIA OBGYWM During your visit today, we recorded the following information about you: Blood pressure Weight Height 128/82 113.4 kg 1.632 m Robert Garsia MD 10/19/2024 9:20 AM Signed Parviz is a 74 year old who presents for an annual gynecologic exam without complaints. Postmenopausal: yes OB History T2 L2 SAB0 IAB1 Ectopic0 Multiple0 Live Births0 Comment: NORMAL VAGINAL DELIVERY X2. 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 Hill DILATION AND CURETTAGE DXAND/THER NONOBSTETRIC Dilation AND curettage, X-2 MOHS MICROGRAPHIC H/N/H/F/G EACH ADDL STAGE On left side of face- right arm OPEN REPAIR OF ROTATOR CUFF ACUTE Rotator cuff repair PAST SURGICAL HISTORY OF [place] teeth extracted PAST SURGICAL HISTORY OF 08/23/2006 Back Surgery, Disc REMV CATARACT EXTRACAP,INSERT LENS Bilateral GAYLA RECONST SHOULDER JOINT Right SALPINGECTOMY BILATERAL, PARTIAL TONSILLECTOMY PRIMARY/SECONDARY TOTAL KNEE REPLACEMENT Right 08/08/2020 FAMILY HISTORY Problem Relation Age of Onset Arthritis Mother Osteoporosis Mother Blindness Mother glaucoma Prostate Cancer Father Colon Cancer Father small cell other (polycythemia) Sister other (oral cancer) Brother toungue Parkinson?s Disease Brother Osteoporosis Maternal Grandmother Cancer Paternal Grandmother SKIN CANCER ON BACK Hypertension Other STRONG FAMILY HISTORY other (HEART DISEASE) Other STRONG FAMILY HISTORY Diabetes Other STRONG FAMILY HISTORY, Maternal other (Blood Clots) Other Maternal side of family SOCIAL HISTORY Social History Tobacco Use Smoking status: Never Smokeless tobacco: Never Vaping Use Vaping status: Never Used Substance Use Topics Alcohol use: No Drug use: No REVIEW OF SYSTEMS Abdomen: No abdominal pain, nausea, vomiting, diarrhea, or constipation. No bloating, early satiety, indigestion, or increased flatulence. Bladder: No dysuria, gross hematuria, urinary frequency, urinary urgency, or incontinence Breast: No breast lumps, nipple d/c, overlying skin changes, redness or skin retraction Allergies and current medication updated:Yes SENSITIVE EXAM: The sensitive examination was discussed with the Patient or Patient's Authorized Adult Manager. As applicable, any other physician, advance practice provider, medical student, or other health professional student that will be observing or involved in the sensitive examination for educational or training purposes was discussed with the Patient or Authorized Adult Manager. The Patient or Authorized Adult Manager has agreed to proceed with the sensitive examination. (Sensitive examination includes inspection and/or palpation of the breasts, pelvis, prostate and anorectal regions). EXAM: BP 128/82 Ht 5' 4.25 (1.63m) Wt 250 lb (113.4kg) BMI 42.58 kg/(m2). GENERAL: pleasant, female in no apparent distress BREAST: soft, non-tender, symmetric, no dominant mass, normal nipple-areolar complex, no lymphadenopathy, and no nipple discharge CHEST: Normal inspiratory effort ABDOMEN: soft, non-tender, and no masses PELVIC: external genitalia normal, normal Bartholin's glands, urethra, [place]'s glands, no vulvar lesions, no cervical lesions, good vaginal support, physiologic discharge present, normal appearing perineal body and perianal region BIMANUAL: uterus normal size, shape and consistency, no adnexal masses, and non-tender RECTOVAGINAL: deferred. NEURO: alert and oriented x3,exam grossly non-focal EXTREMITIES: normal ASSESSMENT/PLAN: 1) Health maintenance: Pap/HPV screening no longer needed Mammogram ordered Colon cancer screening: up to date with screening 2) Follow (more content not included)... Normal [facility] [place] Basophil percentageOrdered B y: Dat Mata on 03-17-2024 Chloride [Moles/Vol] 106 mmol/L 98-107 [facility] Glucose [Mass/Vol] 139 mg/dL 74-106 [facility] Comment on above: Fasting Glucose resu lt greater than or equal to 126 mg/dL suggests DIABETES MELLITUS per A.D.A. criteria. Hemoglobin (Bld) [Mass/Vol] 15.6 g/dL 12.0-15.0 [facility] Potassium [Moles/Vol] 3.7 mmol/L 3.5-5.1 [facility] Sodium [Moles/Vol] 139 mmol/L 136-145 [facility] WBC (Bld) [#/Vol] 15.2 10*3/uL 4.4-11.0 [facility] Determination of erythrocyte mean corpuscular volume (MCV)Ordered By: Dat Mata on 03-17-2024 MCV (RBC) [Entitic vol] 92.7 fL 81-99 [facility] Erythrocyte distribution wid th ratioOrdered By: Dat Mata on 03-17-2024 Erythrocyte distribution width (RBC) [Ratio] 14.1 % 11.6-14.6 [facility] Erythrocyte distribution wid th standard deviationOrdered By: Dat Mata on 03-17-2024 Erythrocyte distribution width (RBC) [Entitic vol] 47.8 fL 35.1-43.9 [facility] Hematocrit Auto (Bld) [Volum e fraction]Ordered By: Dat Mata on 03-17-2024 Hematocrit (Bld) [Volume fraction] 47.0 % 37-47 [facility] - Chemistry and C hemistry - challengeOrdered By: Dat Mata on 03-17-2024 CO2 [Moles/Vol] 25.0 mmol/L 21.0-32.0 [facility] Urea nitrogen/Creatinine [Mass ratio] 14.2 mg/mg 10-20 [facility] - CoagulationOrde red By: Abrahan Silver on 03-17-2024 INR Coag (Bld) [Relative time] 1.2 {INR} [facility] PT Coag (PPP) [Time] 14.9 s 11.7-14.9 [facility] - Hematology and Cell countsOrdered By: Dat Mata on 03-17-2024 MCH (RBC) [Entitic mass] 30.8 pg 27.0-32.0 [facility] MCHC (RBC) [Mass/Vol] 33.2 g/dL 32-36 [facility] Platelet mean volume (Bld) [Entitic vol] 9.7 fL 6.2-12.0 [facility] Platelets (Bld) [#/Vol] 263 10*3/uL 150-450 [facility] No Panel InformationOrdered By: Dat Mata on 03-17-2024 Estimated Creatinine Clearance Calc 78.25 ml/min [facility] Estimated GFR (MDRD) Amer 94 mL/min >60 [facility] Comment on above: GFR Calc Estimated GFR (MDRD) Non-Af Amer 78 mL/min >60 [facility] Comment on above: Non- GFR Calc RBC Auto (Bld) [#/Vol]Ordere d By: Dat Mata on 03-17-2024 RBC (Bld) [#/Vol] 5.07 10*6/uL 4.2-5.4 [facility] Serum or plasma calcium natalio urement (mass/volume)Ordered By: Dat Mata on 03-17-2024 Calcium [Mass/Vol] 9.0 mg/dL 8.5-10.1 [facility] Serum or plasma creatinine m easurement (mass/volume)Ordered By: Dat Mata on 03-17-2024 Creatinine [Mass/Vol] 0.78 mg/dL 0.55-1.02 [facility] Comment on above: The validity of the calculated GFR & GFRAA in patients over 70 years has not been determined. Clinical correlation is essential. Serum or plasma urea nitroge n measurement (mass/volume)Ordered By: Dat Mata on 03-17-2024 Urea nitrogen [Mass/Vol] 11 mg/dL 7-18 [facility] Thin prep Papanicolaou smear with manual screeningOrdered By: Dat Mata on 03-17-2024 Thin prep Papanicolaou smear with manual screening 8 5-15 [facility] Thin prep Papanicolaou smear with manual screeningOrdered By: Dat Mata on 03-16-2024 Thin prep Papanicolaou smear with manual screening 76 mg/dL 74-106 [facility] Comment on above: MANAGEMENT OF PATIEN T CARE PER NURSING PROTOCOL Whole blood prothrombin time Ordered By: Dat Mata on 03-16-2024 PT Coag (Bld) [Time] 21.3 s 11.7-14.9 [facility] .GFRon 03-14-2024 GFR 85 ml/min/1.73sqm Normal [facility] ([place]) Comment on above: Result Comment: GFR Population mean for , Non- Americans Ages 20-29 = 116 mL/min/1.73 sq.m. Ages 30-39 = 107 mL/min/1.73 sq.m. Ages 40-49 = 99 mL/min/1.73 sq.m. Ages 50-59 = 93 mL/min/1.73 sq.m. Ages 60-69 = 85 mL/min/1.73 sq.m. Ages 70+ = 75 mL/min/1.73 sq.m. Chronic Kidney Disease: Less than 60 mL/min/1.73 square meters End Stage Renal Disease: Less than 15 mL/min/1.73 square meters Performed By: #### G FR, PBNP, BMP #### [place] [id number] GFR Non- 71 ml/min/1.73sqm Normal [facility] ([place]) Comment on above: Result Comment: GFR Population mean for , Non- Americans Ages 20-29 = 116 mL/min/1.73 sq.m. Ages 30-39 = 107 mL/min/1.73 sq.m. Ages 40-49 = 99 mL/min/1.73 sq.m. Ages 50-59 = 93 mL/min/1.73 sq.m. Ages 60-69 = 85 mL/min/1.73 sq.m. Ages 70+ = 75 mL/min/1.73 sq.m. Chronic Kidney Disease: Less than 60 mL/min/1.73 square meters End Stage Renal Disease: Less than 15 mL/min/1.73 square meters Performed By: #### THERESA PIPER BMP #### [address] [address] BMPon 03-14-2024 BUN/Creatinine Ratio 32 ratio High 7-27 [facility] ([place]) Comment on above: Performed By: #### THERESA PIPER BMP #### [address] [address] Calcium [Mass/Vol] 8.9 mg/dL Normal 8.4-10.2 [facility] ([place]) Comment on above: Performed By: #### THERESA PIPER BMP #### [address] [address] Chloride [Moles/Vol] 103 mmol/L Normal 98-107 [facility] ([place]) Comment on above: Performed By: #### THERESA PIPER BMP #### [address] [address] CO2 [Moles/Vol] 28 mmol/L Normal 23-31 [facility] ([place]) Comment on above: Performed By: #### THERESA PIPER, BMP #### [address] [address] Creatinine [Mass/Vol] 0.80 mg/dL Normal 0.55-1.02 Replaced by [facility] ([place]) Comment on above: Performed By: #### THERESA PIPER, BMP #### [address] [address] Electrolyte Balance 9.0 mEq/L Normal 4.0-15.0 [facility] ([place]) Comment on above: Performed By: #### THERESA PIPER, BMP #### [address] [address] Glucose [Mass/Vol] 95 mg/dL Normal 83-110 [facility] ([place]) Comment on above: Performed By: #### G THERESA BLANCO, BMP #### [address] [address] Potassium [Moles/Vol] 4.3 mmol/L Normal 3.5-5.1 Replaced by [facility] ([place]) Comment on above: Performed By: #### G , THERESA, BMP #### [address] [address] Sodium [Moles/Vol] 140 mmol/L Normal 136-145 [facility] ([place]) Comment on above: Performed By: #### G THERESA BLANCO, BMP #### [address] [address] Urea nitrogen [Mass/Vol] 26 mg/dL High 7-18 [facility] ([place]) Comment on above: Performed By: #### G THERESA BLANCO, BMP #### [address] [address] LABORATORYOrdered By: SYSTEM SYSTEM on 03-14-2024 Calcium [Mass/Vol] 8.9 mg/dL Normal 8.4 - 10. 2 mg/dL AO ADM SS Chloride [Moles/Vol] 103 mmol/L Normal 98 - 10 7 mmol/L AO ADM SS CO2 [Moles/Vol] 28 mmol/L Normal 23 - 31 mmol/L AO ADM SS Creatinine [Mass/Vol] 0.80 mg/dL Normal 0.55 - 1.02 mg/dL AO ADM SS Electrolyte Balance 9.0 mEq/L Normal 4.0 - 15 .0 mEq/L AO ADM SS GFR/1.73 sq M.predicted among blacks MDRD (S/P/Bld) [Vol rate/Area] 85 ml/min/1.73sqm Invalid Interpretation Code AO Chemistry S Comment on above: Interpretive Data: GFR Population mean for , Non- Americans Ages 20-29 = 116 mL/min/1.73 sq.m. Ages 30-39 = 107 mL/min/1.73 sq.m. Ages 40-49 = 99 mL/min/1.73 sq.m. Ages 50-59 = 93 mL/min/1.73 sq.m. Ages 60-69 = 85 mL/min/1.73 sq.m. Ages 70+ = 75 mL/min/1.73 sq.m. Chronic Kidney Disease: Less than 60 mL/min/1.73 square meters End Stage Renal Disease: Less than 15 mL/min/1.73 square meters GFR/1.73 sq M.predicted among non-blacks MDRD (S/P/Bld) [Vol rate/Area] 71 ml/min/1.73sqm Invalid Interpretation Code AO Chemistry S Comment on above: Interpretive Data: GFR Population mean for , Non- Americans Ages 20-29 = 116 mL/min/1.73 sq.m. Ages 30-39 = 107 mL/min/1.73 sq.m. Ages 40-49 = 99 mL/min/1.73 sq.m. Ages 50-59 = 93 mL/min/1.73 sq.m. Ages 60-69 = 85 mL/min/1.73 sq.m. Ages 70+ = 75 mL/min/1.73 sq.m. Chronic Kidney Disease: Less than 60 mL/min/1.73 square meters End Stage Renal Disease: Less than 15 mL/min/1.73 square meters Glucose [Mass/Vol] 95 mg/dL Normal 83 - 110 mg/dL AO ADM SS Natriuretic peptide.B prohormone N-Terminal [Mass/Vol] 108 pg/mL Normal 0 - 125 pg/mL AO ADM SS Comment on above: Interpretive Data: N T-proBNP results of less than 300 pg/mL effectively rules out acute congestive heart failure with 99% negative predictive value. Potassium [Moles/Vol] 4.3 mmol/L Normal 3.5 - 5.1 mmol/L AO ADM SS Sodium [Moles/Vol] 140 mmol/L Normal 136 - 145 mmol/L AO ADM SS Urea nitrogen [Mass/Vol] 26 mg/dL High 7 - 18 mg/dL AO ADM SS Urea nitrogen/Creatinine [Mass ratio] 32 ratio High 7 - 27 ratio AO ADM SS PBNPon 03-14-2024 Natriuretic peptide B (Bld) [Mass/Vol] 108 pg/mL Normal 0-125 [facility] ([place]) Comment on above: Result Comment: NT-p roBNP results of less than 300 pg/mL effectively rules out acute congestive heart failure with 99% negative predictive value. Performed By: #### G FR, PBNP, BMP #### [address] [place], [place] [address] Basophil percentageOrdered B y: Dat Mata on 02-19-2024 Chloride [Moles/Vol] 108 mmol/L 98-107 [facility] Glucose [Mass/Vol] 93 mg/dL 74-106 [facility] Potassium [Moles/Vol] 3.9 mmol/L 3.5-5.1 [facility] Sodium [Moles/Vol] 140 mmol/L 136-145 [facility] Basophil percentageOrdered B y: Luiz Cortes on 02-19-2024 Hemoglobin (Bld) [Mass/Vol] 15.7 g/dL 12.0-15.0 [facility] WBC (Bld) [#/Vol] 7.6 10*3/uL 4.4-11.0 [facility] Determination of erythrocyte mean corpuscular volume (MCV)Ordered By: Luiz Cortes on 02-19-2024 MCV (RBC) [Entitic vol] 92.3 fL 81-99 [facility] Erythrocyte distribution wid th ratioOrdered By: [facility] on 02-19-2024 Erythrocyte distribution width (RBC) [Ratio] 13.6 % 11.6-14.6 [facility] Erythrocyte distribution wid th standard deviationOrdered By: [facility] on 02-19-2024 Erythrocyte distribution width (RBC) [Entitic vol] 46.5 fL 35.1-43.9 [facility] Hematocrit Auto (Bld) [Volum e fraction]Ordered By: Luiz [facility] on 02-19-2024 Hematocrit (Bld) [Volume fraction] 47.7 % 37-47 [facility] Laboratory - Chemistry and C hemistry - challengeOrdered By: Dat Mata on 02-19-2024 CO2 [Moles/Vol] 27.0 mmol/L 21.0-32.0 [facility] Urea nitrogen/Creatinine [Mass ratio] 17.3 mg/mg 10-20 [facility] Laboratory - Chemistry and C hemistry - challengeOrdered By: Luiz Cortes on 02-19-2024 Magnesium [Mass/Vol] 2.4 mg/dL 1.6-2.6 [facility] Laboratory - Hematology and Cell countsOrdered By: Luiz Cortes on 02-19-2024 MCH (RBC) [Entitic mass] 30.4 pg 27.0-32.0 [facility] MCHC (RBC) [Mass/Vol] 32.9 g/dL 32-36 [facility] Platelet mean volume (Bld) [Entitic vol] 9.6 fL 6.2-12.0 [facility] Platelets (Bld) [#/Vol] 249 10*3/uL 150-450 [facility] No Panel InformationOrdered By: Dat Mata on 02-19-2024 Estimated GFR (MDRD) Amer 77 mL/min >60 [facility] Comment on above: GFR Calc Estimated GFR (MDRD) Non-Af Amer 64 mL/min >60 [facility] Comment on above: Non- GFR Calc Nasal Screen MRSA/MSSA [facility] RBC Auto (Bld) [#/Vol]Ordere d By: Luiz Cortes on 02-19-2024 RBC (Bld) [#/Vol] 5.17 10*6/uL 4.2-5.4 [facility] Serum or plasma calcium natalio urement (mass/volume)Ordered By: Dat Mata on 02-19-2024 Calcium [Mass/Vol] 9.2 mg/dL 8.5-10.1 [facility] Serum or plasma creatinine m easurement (mass/volume)Ordered By: Dat Mata on 02-19-2024 Creatinine [Mass/Vol] 0.92 mg/dL 0.55-1.02 [facility] Comment on above: The validity of the calculated GFR & GFRAA in patients over 70 years has not been determined. Clinical correlation is essential. Serum or plasma thyroid stim ulating hormone (TSH) measurement (units/volume)Ordered By: Luiz Cortes on 02-19-2024 TSH Qn 1.54 uIU/mL 0.358-3.74 [facility] Serum or plasma urea nitroge n measurement (mass/volume)Ordered By: Dat Mata on 02-19-2024 Urea nitrogen [Mass/Vol] 16 mg/dL 7-18 [facility] Thin prep Papanicolaou smear with manual screeningOrdered By: Dat Mata on 02-19-2024 Thin prep Papanicolaou smear with manual screening 3.5 g/dL 3.2-5.0 [facility] Thin prep Papanicolaou smear with manual screening 5 5-15 [facility] Absolute lymphocyte countOrd ered By: Arslan Simon on 11-04-2023 Lymphocytes Auto (Unsp spec) [#/Vol] 2.15 10*3/uL 0.83-4.51 [facility] Basophil percentageOrdered B y: Arslan Simon on 11-04-2023 Basophils/100 WBC (Bld) 1.5 % 0-1 [facility] Chloride [Moles/Vol] 106 mmol/L 98-107 [facility] Cholesterol [Mass/Vol] 161 mg/dL <200 [facility] Comment on above: <200 mg/dL Desirable 200-240 mg/dL Borderline >240 mg/dL High Risk Eosinophils/100 WBC (Bld) 4.4 % 0-5 [facility] Glucose [Mass/Vol] 96 mg/dL 74-106 [facility] Neutrophils (Bld) [#/Vol] 5.2 10*3/uL 2.0-7.7 [facility] Neutrophils/100 WBC (Bld) 58.9 % 47-70 [facility] Potassium [Moles/Vol] 3.8 mmol/L 3.5-5.1 [facility] Comment on above: Slight Hemolysis, Re sult may be falsely increased. Sodium [Moles/Vol] 139 mmol/L 136-145 [facility] Triglyceride [Mass/Vol] 108 mg/dL <199 [facility] Comment on above: The drugs N-Acetylcy steine and Metamizole may falsely depress this assay.Serum Triglycerides Reference Interval Normal <150 mg/dL Borderline high 150 - 199 mg/dL High 200 - 499 mg/dL Very High > or = 500 mg/dL WBC (Bld) [#/Vol] 8.8 10*3/uL 4.4-11.0 [facility] Blood erythrocytes count (nu mber/volume)Ordered By: Arslan Simon on 11-04-2023 RBC (Bld) [#/Vol] 5.29 10*6/uL 4.2-5.4 [facility] Blood hemoglobin measurement (mass/volume)Ordered By: Arslan Simon on 11-04-2023 Hemoglobin (Bld) [Mass/Vol] 16.1 g/dL 12.0-15.0 [facility] Blood lymphocytes/100 leukoc ytesOrdered By: Arslan Simon on 11-04-2023 Lymphocytes/100 WBC (Bld) 24.4 % 19-41 [facility] Blood monocytes/100 leukocyt esOrdered By: Arslan Simon on 11-04-2023 Monocytes/100 WBC (Bld) 10.3 % 0-10 [facility] Blood platelet mean volumeOr dered By: Arslan Simon on 11-04-2023 Platelet mean volume (Bld) [Entitic vol] 9.9 fL 6.2-12.0 [facility] Determination of erythrocyte mean corpuscular volume (MCV)Ordered By: Arslan Simon on 11-04-2023 MCV (RBC) [Entitic vol] 93.0 fL 81-99 [facility] Erythrocyte sedimentation ra teOrdered By: Arslan Simon on 11-04-2023 ESR (Bld) [Velocity] 19 mm/h 0-30 [facility] Hematocrit Auto (Bld) [Volum e fraction]Ordered By: Arslan Simon on 11-04-2023 Hematocrit (Bld) [Volume fraction] 49.2 % 37-47 [facility] Laboratory - Chemistry and C hemistry - challengeOrdered By: Arslan Simon on 11-04-2023 CO2 [Moles/Vol] 26.0 mmol/L 21.0-32.0 [facility] Urea nitrogen/Creatinine [Mass ratio] 21.6 mg/mg 10-20 [facility] Laboratory - Hematology and Cell countsOrdered By: Arslan Simon on 11-04-2023 Erythrocyte distribution width (RBC) [Entitic vol] 45.6 fL 35.1-43.9 [facility] Erythrocyte distribution width (RBC) [Ratio] 13.3 % 11.6-14.6 [facility] Immature granulocytes/100 WBC (Bld) 0.500 % 0.0-0.9 [facility] Comment on above: IG% - Immature Granu locytes (promyelocytes, myelocytes and metamyelocytes) > 1% indicates that a LEFT SHIFT is Present. MCH (RBC) [Entitic mass] 30.4 pg 27.0-32.0 [facility] Nucleated RBC/100 WBC (Bld) [Ratio] 0 % 0-5 [facility] MCHC Auto (RBC) [Mass/Vol]Or dered By: Arslan iSmon on 11-04-2023 MCHC (RBC) [Mass/Vol] 32.7 g/dL 32-36 [facility] No Panel InformationOrdered By: Arslan Simon on 11-04-2023 Estimated GFR (MDRD) Amer 86 mL/min >60 [facility] Comment on above: GFR Calc Estimated GFR (MDRD) Non-Af Amer 71 mL/min >60 [facility] Comment on above: Non- GFR Calc Thyroid Stimulating Hormone (TSH) 1.29 uIU/mL 0.358-3.74 [facility] Platelets bldOrdered By: Adelina Simon on 11-04-2023 Platelets (Bld) [#/Vol] 269 10*3/uL 150-450 [facility] Serum or plasma calcium natalio urement (mass/volume)Ordered By: Arslan Simon on 11-04-2023 Calcium [Mass/Vol] 9.1 mg/dL 8.5-10.1 [facility] Serum or plasma cholesterol in HDL measurement (mass/volume)Ordered By: Arslan Simon on 11-04-2023 Cholesterol in HDL [Mass/Vol] 54 mg/dL >40 [facility] Comment on above: The drugs N-Acetylcy steine and Metamizole may falsely depress this assay. Reference Range HDL <40 mg/dL Low HDL Cholesterol HDL >or= 60 mg/dL High HDL Cholesterol Serum or plasma cholesterol in VLDL measurement (mass/volume)Ordered By: Arslan Simon on 11-04-2023 Cholesterol in VLDL [Mass/Vol] 22 mg/dL 5-40 [facility] Serum or plasma creatinine m easurement (mass/volume)Ordered By: Arslan Simon on 11-04-2023 Creatinine [Mass/Vol] 0.84 mg/dL 0.55-1.02 [facility] Comment on above: The validity of the calculated GFR & GFRAA in patients over 70 years has not been determined. Clinical correlation is essential. Serum or plasma low density lipoprotein (LDL) cholesterol measurement (mass/volume)Ordered By: Arslan Simon on 11-04-2023 Cholesterol in LDL [Mass/Vol] 85 mg/dL 0-130 [facility] Serum or plasma urea nitroge n measurement (mass/volume)Ordered By: Arslan Simon on 11-04-2023 Urea nitrogen [Mass/Vol] 18 mg/dL 7-18 [facility] Thin prep Papanicolaou smear with manual screeningOrdered By: Arslan Simon on 11-04-2023 Thin prep Papanicolaou smear with manual screening 7 5-15 [facility] .GFRon 08-21-2023 GFR 77 ml/min/1.73sqm Normal [facility] ([place]) Comment on above: Result Comment: GFR Population mean for , Non- Americans Ages 20-29 = 116 mL/min/1.73 sq.m. Ages 30-39 = 107 mL/min/1.73 sq.m. Ages 40-49 = 99 mL/min/1.73 sq.m. Ages 50-59 = 93 mL/min/1.73 sq.m. Ages 60-69 = 85 mL/min/1.73 sq.m. Ages 70+ = 75 mL/min/1.73 sq.m. Chronic Kidney Disease: Less than 60 mL/min/1.73 square meters End Stage Renal Disease: Less than 15 mL/min/1.73 square meters Performed By: #### B MP, PBJOSE, GFR #### [place] [address] [address] GFR Non- 63 ml/min/1.73sqm Normal [facility] ([place]) Comment on above: Result Comment: GFR Population mean for , Non- Americans Ages 20-29 = 116 mL/min/1.73 sq.m. Ages 30-39 = 107 mL/min/1.73 sq.m. Ages 40-49 = 99 mL/min/1.73 sq.m. Ages 50-59 = 93 mL/min/1.73 sq.m. Ages 60-69 = 85 mL/min/1.73 sq.m. Ages 70+ = 75 mL/min/1.73 sq.m. Chronic Kidney Disease: Less than 60 mL/min/1.73 square meters End Stage Renal Disease: Less than 15 mL/min/1.73 square meters Performed By: #### B MP, PBNP, GFR #### [address] [address] BMPon 08-21-2023 BUN/Creatinine Ratio 24 ratio Normal 7-27 [facility] ([place]) Comment on above: Performed By: #### B MP, PBNP, GFR #### [address] [address] Calcium [Mass/Vol] 9.2 mg/dL Normal 8.4-10.2 [facility] ([place]) Comment on above: Performed By: #### B MP, PBNP, GFR #### [address] [address] Chloride [Moles/Vol] 103 mmol/L Normal 98-107 [facility] ([place]) Comment on above: Performed By: #### B MP, PBNP, GFR #### [address] [address] CO2 [Moles/Vol] 27 mmol/L Normal 23-31 [facility] ([place]) Comment on above: Performed By: #### B MP, PBNP, GFR #### [address] [address] Creatinine [Mass/Vol] 0.88 mg/dL Normal 0.55-1.02 Replaced by [facility] ([place]) Comment on above: Performed By: #### B MP, PBNP, GFR #### [address] [address] Electrolyte Balance 8.0 mEq/L Normal 4.0-15.0 [facility] ([place]) Comment on above: Performed By: #### B MP, PBNP, GFR #### [address] [address] Glucose [Mass/Vol] 109 mg/dL Normal 83-110 [facility] ([place]) Comment on above: Performed By: #### B MP, PBNP, GFR #### [address] [address] Potassium [Moles/Vol] 4.3 mmol/L Normal 3.5-5.1 Replaced by [facility] ([place]) Comment on above: Performed By: #### B MP, PBNP, GFR #### [address] [address] Sodium [Moles/Vol] 138 mmol/L Normal 136-145 [facility] ([place]) Comment on above: Performed By: #### B MP, PBNP, GFR #### [address] [address] Urea nitrogen [Mass/Vol] 21 mg/dL High 7-18 [facility] ([place]) Comment on above: Performed By: #### B MP, PBNP, GFR #### [address] [address] LABORATORYOrdered By: SYSTEM SYSTEM on 08-21-2023 Calcium [Mass/Vol] 9.2 mg/dL Invalid Interpretation Code 8.4 - 10.2 mg/dL AO ADM SS Chloride [Moles/Vol] 103 mmol/L Invalid Interpretation Code 98 - 107 mmol/L AO ADM SS CO2 [Moles/Vol] 27 mmol/L Invalid Interpretation Code 23 - 31 mmol/L AO ADM SS Creatinine [Mass/Vol] 0.88 mg/dL Invalid Interpretation Code 0.55 - 1.02 mg/dL AO ADM SS Electrolyte Balance 8.0 mEq/L Invalid Interpretation Code 4.0 - 15.0 mEq/L AO ADM SS GFR/1.73 sq M.predicted among blacks MDRD (S/P/Bld) [Vol rate/Area] 77 ml/min/1.73sqm Invalid Interpretation Code AO Chemistry S Comment on above: Interpretive Data: GFR Population mean for , Non- Americans Ages 20-29 = 116 mL/min/1.73 sq.m. Ages 30-39 = 107 mL/min/1.73 sq.m. Ages 40-49 = 99 mL/min/1.73 sq.m. Ages 50-59 = 93 mL/min/1.73 sq.m. Ages 60-69 = 85 mL/min/1.73 sq.m. Ages 70+ = 75 mL/min/1.73 sq.m. Chronic Kidney Disease: Less than 60 mL/min/1.73 square meters End Stage Renal Disease: Less than 15 mL/min/1.73 square meters GFR/1.73 sq M.predicted among non-blacks MDRD (S/P/Bld) [Vol rate/Area] 63 ml/min/1.73sqm Invalid Interpretation Code AO Chemistry S Comment on above: Interpretive Data: GFR Population mean for , Non- Americans Ages 20-29 = 116 mL/min/1.73 sq.m. Ages 30-39 = 107 mL/min/1.73 sq.m. Ages 40-49 = 99 mL/min/1.73 sq.m. Ages 50-59 = 93 mL/min/1.73 sq.m. Ages 60-69 = 85 mL/min/1.73 sq.m. Ages 70+ = 75 mL/min/1.73 sq.m. Chronic Kidney Disease: Less than 60 mL/min/1.73 square meters End Stage Renal Disease: Less than 15 mL/min/1.73 square meters Glucose [Mass/Vol] 109 mg/dL Invalid Interpretation Code 83 - 110 mg/dL AO ADM SS Natriuretic peptide.B prohormone N-Terminal [Mass/Vol] 123 pg/mL Invalid Interpretation Code 0 - 125 pg/mL AO ADM SS Comment on above: Interpretive Data: N T-proBNP results of less than 300 pg/mL effectively rules out acute congestive heart failure with 99% negative predictive value. Potassium [Moles/Vol] 4.3 mmol/L Invalid Interpretation Code 3.5 - 5.1 mmol/L AO ADM SS Sodium [Moles/Vol] 138 mmol/L Invalid Interpretation Code 136 - 145 mmol/L AO ADM SS Urea nitrogen [Mass/Vol] 21 mg/dL Invalid Interpretation Code 7 - 18 mg/dL AO ADM SS Urea nitrogen/Creatinine [Mass ratio] 24 ratio Invalid Interpretation Code 7 - 27 ratio AO ADM SS PBNPon 08-21-2023 Natriuretic peptide B (Bld) [Mass/Vol] 123 pg/mL Normal 0-125 [facility] ([place]) Comment on above: Result Comment: NT-p roBNP results of less than 300 pg/mL effectively rules out acute congestive heart failure with 99% negative predictive value. Performed By: #### B MP, PBNP, GFR #### [facility] [address] [place], [place] [address] Laboratory - CoagulationOrde red By: Dr. Cardenas on 04-10-2023 INR Coag (Bld) [Relative time] 1.5 {INR} [facility] Comment on above: Critical Value > 4.0 Whole blood prothrombin time Ordered By: Dr. Cardenas on 04-10-2023 PT Coag (Bld) [Time] 17.1 s 11.7-14.9 [facility] JAK2 V617F mutation detectio nOrdered By: Dr. Simon on 03-18-2023 JAK2 gene p.[id number] Molgen Ql (Bld/Tiss) Comment . [facility] Comment on above: Result: NEGATIVE for the JAK2 V617F mutation.Interpretation: The G to T nucleotide change encoding [id number] mutation was not detected. This result does not ruleout the presence of the JAK2 mutation at a level below thesensitivity of detection of this assay, or the presence ofother mutations within JAK2 not detected by this assay.This result does not rule out a diagnosis of polycythemiavera, essential thrombocythemia or idiopathicmyelofibrosis as the V617F mutation is not detected inall patients with these disorders. No Panel InformationOrdered By: Dr. Simon on 03-18-2023 JAK2 Mutation Comment . [facility] Comment on above: Isamar Gilmore, PhD, FACM GDirector, Molecular OncologyLabco Center for Molecular Biology and PathologyResReading, [place] [phone] test was developed and its performance characteristicsdetermined by [employer]. It has not been cleared orapproved by the Food and Drug Administration. JAK2 V617F Reviewed By Comment . [facility] Comment on above: JAK2 is a cytoplasmi c tyrosine kinase with a hart role insignal transduction from multiple hematopoietic growthfactor receptors. A point mutation within exon 14 of theJAK2 gene (C3431H) encoding a valine to phenylalaninesubstitution at position 617 of the JAK2 protein (V617F)has been identified in most patients with polycythemiavera, and in about half of those with either essentialthrombocythemia or idiopathic myelofibrosis. The V617F hasalso been detected, although infrequently, in other myeloiddisorders such as chronic myelomonocytic leukemia andchronic neutrophilic luekemia. V617F is an acquiredmutation that alters a highly conserved valine present inthe negative regulatory JH2 domain of the JAK2 proteinand is predicted to dysregulate kinase activity.Methodology:Total genomic DNA was extracted and subjected to TaqManreal-time PCR amplification/detection. Two amplificationproducts per sample were monitored by real-time PCR usingprimers/probes specific to JAK2 wild type (WT) and CHC1ymajvg V617F. The NationalField Absolute Quantitation softwarewill compare the patient specimen valuse to the standardcurves and generate percent values for wild type andmutant type. In vitro studies have indicated that thisassay has an analytical sensitivity of 1%.References:Sukumar EJ, Roberto LM, Taran PJ, et al. Acquiredmutation of the tyrosine kinase JAK2 in humanmyeloproliferative disorders. Lancet. 2005 Feb 08;365(0603):5509-7776. Moises Reese V, Amada Levine KHUSHI. Aunique clonal JAK2 mutation leading to constitutivesignaling causes polycythaemia vera. Nature. 2005 Mar 20;884(6918):6144-7621.Shannan R, Bay F, Elisha , et al. A [id number] mutation of JAK2 in myeloproliferative disorders.N Engl J Med. 2005 Mar 20; 35217):9293-5259. Serum or plasma erythropoiet in (EPO) measurement (units/volume)Ordered By: Dr. Simon on 03-18-2023 Erythropoietin (EPO) Qn 13.8 mIU/mL 2.6-18.5 [facility] Comment on above: [facility] DxI 800 Immunoassay SystemValues obtained with different assay methods or kits cannotbe used interchangeably. Results cannot be interpreted asabsolute evidence of the presence or absence of malignantdisease.Performed at: [place] - [facility] [id number] [facility], [place], [place] [id number] Director: Jez Nazario [facility], Phone: [phone] at: [place] - [facility] [id number], [place], [place] [id number] Director: Jez Nazario [facility], Phone: [phone] at: - [facility] [address] [id number] Director: Glenn Martínez PhD, Phone: [phone] Absolute lymphocyte countOrd ered By: Dr. Simon on 03-16-2023 Lymphocytes Auto (Unsp spec) [#/Vol] 1.94 10*3/uL 0.83-4.51 [facility] Basophil percentageOrdered B y: Dr. Simon on 03-16-2023 Basophils/100 WBC (Bld) 0.8 % 0-1 [facility] Bilirubin [Mass/Vol] 0.40 mg/dL 0.20-1.00 [facility] Comment on above: For patients on eltr ombopag therapy, use of Dimension Lindsay TBIL is not recommended. Chloride [Moles/Vol] 105 mmol/L 98-107 [facility] Eosinophils/100 WBC (Bld) 3.7 % 0-5 [facility] Glucose [Mass/Vol] 120 mg/dL 74-106 [facility] Comment on above: Fasting Glucose resu lt from 100 to 125 mg/dL suggests IMPAIRED HOMEOSTASIS per A.D.A. criteria. Neutrophils (Bld) [#/Vol] 6.3 10*3/uL 2.0-7.7 [facility] Neutrophils/100 WBC (Bld) 65.3 % 47-70 [facility] Potassium [Moles/Vol] 3.7 mmol/L 3.5-5.1 [facility] Protein [Mass/Vol] 7.7 g/dL 6.4-8.2 [facility] Sodium [Moles/Vol] 134 mmol/L 136-145 [facility] WBC (Bld) [#/Vol] 9.7 10*3/uL 4.4-11.0 [facility] Blood erythrocytes count (nu mber/volume)Ordered By: Dr. Simon on 03-16-2023 RBC (Bld) [#/Vol] 5.26 10*6/uL 4.2-5.4 [facility] Blood hemoglobin measurement (mass/volume)Ordered By: Dr. Simon on 03-16-2023 Hemoglobin (Bld) [Mass/Vol] 16.2 g/dL 12.0-15.0 [facility] Blood lymphocytes/100 leukoc ytesOrdered By: Dr. Simon on 03-16-2023 Lymphocytes/100 WBC (Bld) 20.1 % 19-41 [facility] Blood monocytes/100 leukocyt esOrdered By: Dr. Simon on 03-16-2023 Monocytes/100 WBC (Bld) 9.7 % 0-10 [facility] Blood platelet mean volumeOr dered By: Dr. Simon on 03-16-2023 Platelet mean volume (Bld) [Entitic vol] 10.0 fL 6.2-12.0 [facility] Determination of erythrocyte mean corpuscular volume (MCV)Ordered By: Dr. Simon on 03-16-2023 MCV (RBC) [Entitic vol] 92.6 fL 81-99 [facility] Hematocrit Auto (Bld) [Volum e fraction]Ordered By: Dr. Simon on 03-16-2023 Hematocrit (Bld) [Volume fraction] 48.7 % 37-47 [facility] Laboratory - Chemistry and C hemistry - challengeOrdered By: Dr. Simon on 03-16-2023 ALP [Catalytic activity/Vol] 85 U/L 45-117 [facility] ALT [Catalytic activity/Vol] 30 U/L 13-56 [facility] CO2 [Moles/Vol] 23.0 mmol/L 21.0-32.0 [facility] Free T4 [Mass/Vol] 1.16 ng/dL 0.76-1.46 [facility] Globulin (S) [Mass/Vol] 4.2 g/dL 2.2-4.2 [facility] Natriuretic peptide B (Bld) [Mass/Vol] 29.7 pg/mL 0-100 [facility] Urea nitrogen/Creatinine [Mass ratio] 28.2 mg/mg 10-20 [facility] Laboratory - Hematology and Cell countsOrdered By: Dr. Simon on 03-16-2023 Erythrocyte distribution width (RBC) [Entitic vol] 45.7 fL 35.1-43.9 [facility] Erythrocyte distribution width (RBC) [Ratio] 13.4 % 11.6-14.6 [facility] Immature granulocytes/100 WBC (Bld) 0.400 % 0.0-0.9 [facility] Comment on above: IG% - Immature Granu locytes (promyelocytes, myelocytes and metamyelocytes) > 1% indicates that a LEFT SHIFT is Present. MCH (RBC) [Entitic mass] 30.8 pg 27.0-32.0 [facility] Nucleated RBC/100 WBC (Bld) [Ratio] 0 % 0-5 [facility] MCHC Auto (RBC) [Mass/Vol]Or dered By: Dr. Simon on 03-16-2023 MCHC (RBC) [Mass/Vol] 33.3 g/dL 32-36 [facility] No Panel InformationOrdered By: Dr. Simon on 03-16-2023 Estimated GFR (MDRD) Amer 99 mL/min >60 [facility] Comment on above: GFR Calc Estimated GFR (MDRD) Non-Af Amer 82 mL/min >60 [facility] Comment on above: Non- GFR Calc Free Triiodothyronine (T3) pg/dL 2.6 pg/mL 2.18-3.98 [facility] Thyroid Stimulating Hormone (TSH) 1.38 uIU/mL 0.358-3.74 [facility] Platelets bldOrdered By: Dr. Simon on 03-16-2023 Platelets (Bld) [#/Vol] 265 10*3/uL 150-450 [facility] Serum or plasma albumin natalio urement (mass/volume)Ordered By: Dr. Simon on 03-16-2023 Albumin [Mass/Vol] 3.5 g/dL 3.2-5.0 [facility] Serum or plasma albumin/glob ulin mass ratioOrdered By: Dr. Simon on 03-16-2023 Albumin/Globulin [Mass ratio] 0.8 {ratio} 0.9-2.4 [facility] Serum or plasma calcium natalio urement (mass/volume)Ordered By: Dr. Simon on 03-16-2023 Calcium [Mass/Vol] 9.4 mg/dL 8.5-10.1 [facility] Serum or plasma creatinine m easurement (mass/volume)Ordered By: Dr. Simon on 03-16-2023 Creatinine [Mass/Vol] 0.74 mg/dL 0.55-1.02 [facility] Comment on above: The validity of the calculated GFR & GFRAA in patients over 70 years has not been determined. Clinical correlation is essential. Serum or plasma urea nitroge n measurement (mass/volume)Ordered By: Dr. Simon on 03-16-2023 Urea nitrogen [Mass/Vol] 21 mg/dL 7-18 [facility] Thin prep Papanicolaou smear with manual screeningOrdered By: Dr. Simon on 03-16-2023 Thin prep Papanicolaou smear with manual screening 16 U/L 15-37 [facility] Thin prep Papanicolaou smear with manual screening 6 5-15 [facility] LABORATORYOrdered By: SYSTEM SYSTEM on 02-23-2023 Calcium [Mass/Vol] 8.8 mg/dL Invalid Interpretation Code 8.4 - 10.2 mg/dL AO ADM SS Chloride [Moles/Vol] 106 mmol/L Invalid Interpretation Code 98 - 107 mmol/L AO ADM SS CO2 [Moles/Vol] 28 mmol/L Invalid Interpretation Code 23 - 31 mmol/L AO ADM SS Creatinine [Mass/Vol] 0.82 mg/dL Invalid Interpretation Code 0.55 - 1.02 mg/dL AO ADM SS Electrolyte Balance 9.0 mEq/L Invalid Interpretation Code 4.0 - 15.0 mEq/L AO ADM SS GFR 83 ml/min/1.73sqm Invalid Interpretation Code AO Chemistry S GFR Non- 69 ml/min/1.73sqm Invalid Interpretation Code AO Chemistry S Glucose [Mass/Vol] 96 mg/dL Invalid Interpretation Code 83 - 110 mg/dL AO ADM SS Natriuretic peptide.B prohormone N-Terminal [Mass/Vol] 137 pg/mL Invalid Interpretation Code 0 - 125 pg/mL AO ADM SS Potassium [Moles/Vol] 4.6 mmol/L Invalid Interpretation Code 3.5 - 5.1 mmol/L AO ADM SS Sodium [Moles/Vol] 143 mmol/L Invalid Interpretation Code 136 - 145 mmol/L AO ADM SS Urea nitrogen [Mass/Vol] 16 mg/dL Invalid Interpretation Code 7 - 18 mg/dL AO ADM SS Urea nitrogen/Creatinine [Mass ratio] 20 ratio Invalid Interpretation Code 7 - 27 ratio AO ADM SS LABORATORYOrdered By: Rosenda Chávez on 02-23-2023 Cholesterol [Mass/Vol] 166 mg/dL Invalid Interpretation Code 0 - 200 mg/dL AO ADM SS Cholesterol in HDL [Mass/Vol] 52 mg/dL Invalid Interpretation Code 40 - 60 mg/dL AO ADM SS Cholesterol in LDL [Mass/Vol] 95 mg/dL Invalid Interpretation Code 0 - 130 mg/dL AO ADM SS Triglyceride [Mass/Vol] 94 mg/dL Invalid Interpretation Code 0 - 150 mg/dL AO ADM SS Absolute lymphocyte counton 07-03-2022 Lymphocytes Auto (Unsp spec) [#/Vol] 1.60 10*3/uL 0.83-4.51 [facility] Work Phone: Basophil percentageon 2021 Basophils/100 WBC (Bld) 0.9 % 0-1 [facility] Work Phone: Chloride [Moles/Vol] 108 mmol/L 98-107 [facility] Work Phone: Eosinophils/100 WBC (Bld) 3.2 % 0-5 [facility] Work Phone: Glucose [Mass/Vol] 107 mg/dL 74-106 [facility] Work Phone: Comment on above: Fasting Glucose resu lt from 100 to 125 mg/dL suggests IMPAIRED HOMEOSTASIS per A.D.A. criteria. Neutrophils (Bld) [#/Vol] 5.1 10*3/uL 2.0-7.7 [facility] Work Phone: Neutrophils/100 WBC (Bld) 64.8 % 47-70 [facility] Work Phone: Potassium [Moles/Vol] 3.7 mmol/L 3.5-5.1 [facility] Work Phone: Sodium [Moles/Vol] 140 mmol/L 136-145 [facility] Work Phone: WBC (Bld) [#/Vol] 7.9 10*3/uL 4.4-11.0 [facility] Work Phone: Blood erythrocytes count (nu mber/volume)on 07-03-2022 RBC (Bld) [#/Vol] 5.20 10*6/uL 4.2-5.4 [facility] Work Phone: Blood hemoglobin measurement (mass/volume)on 07-03-2022 Hemoglobin (Bld) [Mass/Vol] 15.9 g/dL 12.0-15.0 [facility] Work Phone: Blood lymphocytes/100 leukoc yteson 07-03-2022 Lymphocytes/100 WBC (Bld) 20.2 % 19-41 [facility] Work Phone: Blood monocytes/100 leukocyt eson 07-03-2022 Monocytes/100 WBC (Bld) 10.5 % 0-10 [facility] Work Phone: Blood platelet mean volumeon 07-03-2022 Platelet mean volume (Bld) [Entitic vol] 10.0 fL 6.2-12.0 [facility] Work Phone: Determination of erythrocyte mean corpuscular volume (MCV)on 07-03-2022 MCV (RBC) [Entitic vol] 92.7 fL 81-99 [facility] Work Phone: Hematocrit Auto (Bld) [Volum e fraction]on 07-03-2022 Hematocrit (Bld) [Volume fraction] 48.2 % 37-47 [facility] Work Phone: Laboratory - Chemistry and C hemistry - challengeon 07-03-2022 CO2 [Moles/Vol] 26.0 mmol/L 21.0-32.0 [facility] Work Phone: Urea nitrogen/Creatinine [Mass ratio] 23.3 mg/mg 10-20 [facility] Work Phone: Laboratory - Hematology and Cell countson 07-03-2022 Erythrocyte distribution width (RBC) [Entitic vol] 46.7 fL 35.1-43.9 [facility] Work Phone: Erythrocyte distribution width (RBC) [Ratio] 13.7 % 11.6-14.6 [facility] Work Phone: Immature granulocytes/100 WBC (Bld) 0.400 % 0.0-0.9 [facility] Work Phone: Comment on above: IG% - Immature Granu locytes (promyelocytes, myelocytes and metamyelocytes) > 1% indicates that a LEFT SHIFT is Present. MCH (RBC) [Entitic mass] 30.6 pg 27.0-32.0 [facility] Work Phone: Nucleated RBC/100 WBC (Bld) [Ratio] 0 % 0-5 [facility] Work Phone: MCHC Auto (RBC) [Mass/Vol]on 07-03-2022 MCHC (RBC) [Mass/Vol] 33.0 g/dL 32-36 [facility] Work Phone: No Panel Informationon 07-03 Estimated GFR (MDRD) Amer 95 mL/min >60 [facility] Work Phone: Comment on above: GFR Calc Estimated GFR (MDRD) Non-Af Amer 78 mL/min >60 [facility] Work Phone: Comment on above: Non- GFR Calc Thyroid Stimulating Hormone (TSH) 1.27 uIU/mL 0.358-3.74 [facility] Work Phone: Platelets bldon 07-03-2022 Platelets (Bld) [#/Vol] 257 10*3/uL 150-450 [facility] Work Phone: Serum or plasma calcium natalio urement (mass/volume)on 07-03-2022 Calcium [Mass/Vol] 9.0 mg/dL 8.5-10.1 [facility] Work Phone: [phone] Serum or plasma creatinine m easurement (mass/volume)on 07-03-2022 Creatinine [Mass/Vol] 0.77 mg/dL 0.55-1.02 [facility] Work Phone: Comment on above: The validity of the calculated GFR & GFRAA in patients over 70 years has not been determined. Clinical correlation is essential. Serum or plasma urea nitroge n measurement (mass/volume)on 07-03-2022 Urea nitrogen [Mass/Vol] 18 mg/dL 7-18 [facility] Work Phone: Thin prep Papanicolaou smear with manual screeningon 07-03-2022 Thin prep Papanicolaou smear with manual screening 6 5-15 [facility] Work Phone: Basophil percentageon 2021 Chloride [Moles/Vol] 109 mmol/L 98-107 [facility] Work Phone: Glucose [Mass/Vol] 107 mg/dL 74-106 [facility] Work Phone: Comment on above: Fasting Glucose resu lt from 100 to 125 mg/dL suggests IMPAIRED HOMEOSTASIS per A.D.A. criteria. Potassium [Moles/Vol] 3.8 mmol/L 3.5-5.1 [facility] Work Phone: Sodium [Moles/Vol] 140 mmol/L 136-145 [facility] Work Phone: Laboratory - Chemistry and C hemistry - challengeon 03-15-2022 CO2 [Moles/Vol] 24.0 mmol/L 21.0-32.0 [facility] Work Phone: Urea nitrogen/Creatinine [Mass ratio] 28.8 mg/mg 10-20 [facility] Work Phone: No Panel Informationon 03-15 Estimated Creatinine Clearance Calc 45.20 ml/min [facility] Work Phone: Estimated GFR (MDRD) Amer 107 mL/min >60 [facility] Work Phone: Comment on above: GFR Calc Estimated GFR (MDRD) Non-Af Amer 89 mL/min >60 [facility] Work Phone: Comment on above: Non- GFR Calc Serum or plasma calcium natalio urement (mass/volume)on 03-15-2022 Calcium [Mass/Vol] 8.5 mg/dL 8.5-10.1 [facility] Work Phone: Serum or plasma creatinine m easurement (mass/volume)on 03-15-2022 Creatinine [Mass/Vol] 0.69 mg/dL 0.55-1.02 [facility] Work Phone: Comment on above: The validity of the calculated GFR & GFRAA in patients over 70 years has not been determined. Clinical correlation is essential. Serum or plasma urea nitroge n measurement (mass/volume)on 03-15-2022 Urea nitrogen [Mass/Vol] 20 mg/dL 7-18 [facility] Work Phone: Thin prep Papanicolaou smear with manual screeningon 03-15-2022 Thin prep Papanicolaou smear with manual screening 7 5-15 [facility] Work Phone: Absolute lymphocyte counton 03-14-2022 Lymphocytes Auto (Unsp spec) [#/Vol] 2.10 10*3/uL 0.83-4.51 [facility] Work Phone: Basophil percentageon 2021 Basophils/100 WBC (Bld) 0.8 % 0-1 [facility] Work Phone: Chloride [Moles/Vol] 109 mmol/L 98-107 [facility] Work Phone: Eosinophils/100 WBC (Bld) 3.0 % 0-5 [facility] Work Phone: Glucose [Mass/Vol] 121 mg/dL 74-106 [facility] Work Phone: Comment on above: Fasting Glucose resu lt from 100 to 125 mg/dL suggests IMPAIRED HOMEOSTASIS per A.D.A. criteria. Neutrophils (Bld) [#/Vol] 5.6 10*3/uL 2.0-7.7 [facility] Work Phone: Neutrophils/100 WBC (Bld) 62.5 % 47-70 [facility] Work Phone: Potassium [Moles/Vol] 3.4 mmol/L 3.5-5.1 [facility] Work Phone: Sodium [Moles/Vol] 141 mmol/L 136-145 [facility] Work Phone: WBC (Bld) [#/Vol] 9.0 10*3/uL 4.4-11.0 [facility] Work Phone: [phone] Blood erythrocytes count (nu mber/volume)on 03-14-2022 RBC (Bld) [#/Vol] 5.60 10*6/uL 4.2-5.4 [facility] Work Phone: Blood hemoglobin measurement (mass/volume)on 03-14-2022 Hemoglobin (Bld) [Mass/Vol] 17.1 g/dL 12.0-15.0 [facility] Work Phone: Blood lymphocytes/100 leukoc yteson 03-14-2022 Lymphocytes/100 WBC (Bld) 23.4 % 19-41 [facility] Work Phone: Blood manual differential co mment interpretation (narrative result)on 03-14-2022 Manual differential comment Ricardo (Bld) [Interp] SCANNED [facility] Work Phone: Comment on above: LYMPHOCYTOSIS NOTED Blood monocytes/100 leukocyt eson 03-14-2022 Monocytes/100 WBC (Bld) 9.7 % 0-10 [facility] Work Phone: Blood platelet mean volumeon 03-14-2022 Platelet mean volume (Bld) [Entitic vol] 10.0 fL 6.2-12.0 [facility] Work Phone: Determination of erythrocyte mean corpuscular volume (MCV)on 03-14-2022 MCV (RBC) [Entitic vol] 91.8 fL 81-99 [facility] Work Phone: Hematocrit Auto (Bld) [Volum e fraction]on 03-14-2022 Hematocrit (Bld) [Volume fraction] 51.4 % 37-47 [facility] Work Phone: INR in Blood by Coagulation assayon 03-14-2022 INR Coag (Bld) [Relative time] 2.1 {INR} [facility] Work Phone: Laboratory - Chemistry and C hemistry - challengeon 03-14-2022 CO2 [Moles/Vol] 27.0 mmol/L 21.0-32.0 [facility] Work Phone: Urea nitrogen/Creatinine [Mass ratio] 23.5 mg/mg 10-20 [facility] Work Phone: Laboratory - Coagulationon 0 03-14-2022 aPTT Coag (Bld) [Time] 43.5 s 24.1-36.2 [facility] Work Phone: PT Coag (PPP) [Time] 22.9 s 11.7-14.9 [facility] Work Phone: Laboratory - Hematology and Cell countson 03-14-2022 Erythrocyte distribution width (RBC) [Entitic vol] 46.1 fL 35.1-43.9 [facility] Work Phone: Erythrocyte distribution width (RBC) [Ratio] 13.5 % 11.6-14.6 [facility] Work Phone: Immature granulocytes/100 WBC (Bld) 0.600 % 0.0-0.9 [facility] Work Phone: [phone] Comment on above: IG% - Immature Granu locytes (promyelocytes, myelocytes and metamyelocytes) > 1% indicates that a LEFT SHIFT is Present. MCH (RBC) [Entitic mass] 30.5 pg 27.0-32.0 [facility] Work Phone: Nucleated RBC/100 WBC (Bld) [Ratio] 0 % 0-5 [facility] Work Phone: MCHC Auto (RBC) [Mass/Vol]on 03-14-2022 MCHC (RBC) [Mass/Vol] 33.3 g/dL 32-36 [facility] Work Phone: No Panel Informationon 03-14 Troponin I High Sensitivity 8 pg/mL 3.0-54.0 [facility] Work Phone: Comment on above: Please Note: New Ana t Units and Gender Specific Reference Ranges. For more information see Policy Stat Procedure Lindsay High Sensitivity Troponin (TNIH) and attachments. D-Dimer Quantitative (PE/DVT) < 0.27 FEU/ug/m 0.27-0.49 [facility] Work Phone: Comment on above: NORMAL D-Dimer level (<0.50) indicates no DVT or PE. Estimated Creatinine Clearance Calc 45.20 ml/min [facility] Work Phone: Estimated GFR (MDRD) Amer 96 mL/min >60 [facility] Work Phone: Comment on above: GFR Calc Estimated GFR (MDRD) Non-Af Amer 79 mL/min >60 [facility] Work Phone: Comment on above: Non- GFR Calc Troponin I High Sensitivity 3 pg/mL 3.0-54.0 [facility] Work Phone: Comment on above: Please Note: New Ana t Units and Gender Specific Reference Ranges. For more information see Policy Stat Procedure Lindsay High Sensitivity Troponin (TNIH) and attachments. Platelets bldon 03-14-2022 Platelets (Bld) [#/Vol] 275 10*3/uL 150-450 [facility] Work Phone: Serum or plasma calcium natalio urement (mass/volume)on 03-14-2022 Calcium [Mass/Vol] 9.7 mg/dL 8.5-10.1 [facility] Work Phone: Serum or plasma creatinine m easurement (mass/volume)on 03-14-2022 Creatinine [Mass/Vol] 0.77 mg/dL 0.55-1.02 [facility] Work Phone: Comment on above: The validity of the calculated GFR & GFRAA in patients over 70 years has not been determined. Clinical correlation is essential. Serum or plasma urea nitroge n measurement (mass/volume)on 03-14-2022 Urea nitrogen [Mass/Vol] 18 mg/dL 7-18 [facility] Work Phone: Thin prep Papanicolaou smear with manual screeningon 03-14-2022 Thin prep Papanicolaou smear with manual screening 5 5-15 [facility] Work Phone: Whole blood hemoglobin A1c/t otal hemoglobin ratio (mass fraction)on 03-14-2022 HbA1c (Bld) [Mass fraction] 5.6 % 3.8-5.6 [facility] Work Phone: Comment on above: Normal < 5.7 % Predi abetic 5.7 - 6.4 % Diabetic >or= 6.5 % Please note range changes. Laboratory - Chemistry and C hemistry - challengeon 03-10-2022 Free T4 [Mass/Vol] 1.18 ng/dL 0.76-1.46 [facility] Work Phone: No Panel Informationon 03-10 Thyroid Stimulating Hormone (TSH) 1.48 uIU/mL 0.358-3.74 [facility] Work Phone: COLLEEN SCREENING W TOMOon 02-17 [facility] Basophil percentageon 2021 Bilirubin [Mass/Vol] 0.30 mg/dL 0.20-1.00 [facility] Work Phone: Comment on above: For patients on eltr ombopag therapy, use of Dimension Lindsay TBIL is not recommended. Chloride [Moles/Vol] 105 mmol/L 98-107 [facility] Work Phone: Glucose [Mass/Vol] 110 mg/dL 74-106 [facility] Work Phone: Comment on above: Fasting Glucose resu lt from 100 to 125 mg/dL suggests IMPAIRED HOMEOSTASIS per A.D.A. criteria. Potassium [Moles/Vol] 3.5 mmol/L 3.5-5.1 [facility] Work Phone: Protein [Mass/Vol] 6.9 g/dL 6.4-8.2 [facility] Work Phone: Sodium [Moles/Vol] 139 mmol/L 136-145 [facility] Work Phone: Laboratory - Chemistry and C hemistry - challengeon 01-08-2022 ALP [Catalytic activity/Vol] 90 U/L 45-117 [facility] Work Phone: ALT [Catalytic activity/Vol] 33 U/L 13-56 [facility] Work Phone: CO2 [Moles/Vol] 26.0 mmol/L 21.0-32.0 [facility] Work Phone: Free T4 [Mass/Vol] 1.06 ng/dL 0.76-1.46 [facility] Work Phone: Globulin (S) [Mass/Vol] 3.6 g/dL 2.2-4.2 [facility] Work Phone: Urea nitrogen/Creatinine [Mass ratio] 20.5 mg/mg 10-20 [facility] Work Phone: No Panel Informationon 01-08 Estimated GFR (MDRD) Amer 94 mL/min >60 [facility] Work Phone: Comment on above: GFR Calc Estimated GFR (MDRD) Non-Af Amer 78 mL/min >60 [facility] Work Phone: Comment on above: Non- GFR Calc Free Triiodothyronine (T3) pg/dL 2.6 pg/mL 2.18-3.98 [facility] Work Phone: Thyroid Stimulating Hormone (TSH) 1.85 uIU/mL 0.358-3.74 [facility] Work Phone: Serum or plasma albumin natalio urement (mass/volume)on 01-08-2022 Albumin [Mass/Vol] 3.3 g/dL 3.2-5.0 [facility] Work Phone: Serum or plasma albumin/glob ulin mass ratioon 01-08-2022 Albumin/Globulin [Mass ratio] 0.9 {ratio} 0.9-2.4 [facility] Work Phone: Serum or plasma calcium natalio urement (mass/volume)on 01-08-2022 Calcium [Mass/Vol] 8.6 mg/dL 8.5-10.1 [facility] Work Phone: Serum or plasma cortisol jhon surement (mass/volume)on 01-08-2022 Cortisol [Mass/Vol] 14.40 ug/dL 3.44-22.45 [facility] Work Phone: Comment on above: Adult (AM) 5.27 - 22 .45 ug/dL Adult (PM) 3.44 - 16.76 ug/dLPlease note revised CORTISOL reference range effective 2020. Serum or plasma creatinine m easurement (mass/volume)on 01-08-2022 Creatinine [Mass/Vol] 0.78 mg/dL 0.55-1.02 [facility] Work Phone: Comment on above: The validity of the calculated GFR & GFRAA in patients over 70 years has not been determined. Clinical correlation is essential. Serum or plasma urea nitroge n measurement (mass/volume)on 01-08-2022 Urea nitrogen [Mass/Vol] 16 mg/dL 7-18 [facility] Work Phone: Thin prep Papanicolaou smear with manual screeningon 01-08-2022 Thin prep Papanicolaou smear with manual screening 19 U/L 15-37 [facility] Work Phone: Thin prep Papanicolaou smear with manual screening 8 5-15 [facility] Work Phone: Vital Signs Date Time Vital Sign Value Performing Clinician Maria Elena morales 06-08-2025 15:23-0400 Body height 162.[address] Farnaz Simon MD Work Phone: [phone] [address] 06-08-2025 15:23-0400 Body mass index (BMI) [Ratio] 43.7 kg/m2 Dr. Farnaz Simon MD Work Phone: 0([phone] [place] [address] 06-08-2025 15:23-0400 Body temperature 98.4 [degF] Dr. Farnaz Simon MD Work Phone: [phone])[phone] [place] [address] 06-08-2025 15:23-0400 Body weight 115.[address] Farnaz Simon MD Work Phone: [phone] [place] [address] 06-08-2025 15:23-0400 Diastolic blood pressure 83 mm[Hg] Dr. Farnaz Simon MD Work Phone: [phone])[phone] [place] [address] 06-08-2025 15:23-0400 Heart rate 62 /min Dr. Farnaz Simon MD Work Phone: [phone] [place] [address] 06-08-2025 15:23-0400 Respiratory rate 18 /min Dr. Farnaz Simon MD Work Phone: [phone] [place] [address] 06-08-2025 15:23-0400 SaO2% (BldA) [Mass fraction] 93 % Dr. Farnaz Simon MD Work Phone: [phone] [place] [address] 06-08-2025 15:23-0400 Systolic blood pressure 145 mm[Hg] Dr. Farnaz Simon MD Work Phone: [phone] [place] [address] 05-18-2025 15:35-0400 Body height 162.[address] Farnaz Simon MD Work Phone: [phone] [place] [address] 05-18-2025 15:35-0400 Body mass index (BMI) [Ratio] 43.6 kg/m2 Dr. Farnaz Simon MD Work Phone: [phone] [place] [address] 05-18-2025 15:35-0400 Body temperature 95.3 [degF] Dr. Farnaz Simon MD Work Phone: [phone] [place] [address] 05-18-2025 15:35-0400 Body weight 115.[address] Farnaz Simon MD Work Phone: [facility] 05-18-2025 15:35-0400 Diastolic blood pressure 85 mm[Hg] Dr. Farnaz Simon MD Work Phone: [facility] 05-18-2025 15:35-0400 Heart rate 71 /min Dr. Farnaz Simon MD Work Phone: [facility] 05-18-2025 15:35-0400 Respiratory rate 15 /min Dr. Farnaz Simon MD Work Phone: [facility] 05-18-2025 15:35-0400 SaO2% (BldA) [Mass fraction] 95 % Dr. Farnaz Simon MD Work Phone: [facility] 05-18-2025 15:35-0400 Systolic blood pressure 131 mm[Hg] Dr. Farnaz Simon MD Work Phone: [facility] 10-19-2024 08:49-0500 Body height 163.2 cm Robert Garsia MD Work Phone: [facility] 10-19-2024 08:49-0500 Body mass index (BMI) [Ratio] 42.58 kg/m2 Robert Garsia MD Work Phone: [facility] 10-19-2024 08:49-0500 Body weight 113.4 kg Robert Garsia MD Work Phone: [facility] 10-19-2024 08:49-0500 Diastolic blood pressure 82 mm[Hg] Robert Garsia MD Work Phone: [facility] 10-19-2024 08:49-0500 Systolic blood pressure 128 mm[Hg] Robert Garsia MD Work Phone: [facility] 03-17-2024 13:19-0400 Body temperature 97.9 [degF] Dr. Farnaz Simon Work Phone: [facility] 03-17-2024 13:19-0400 Diastolic blood pressure 91 mm[Hg] Dr. Farnaz Simon Work Phone: [facility] 03-17-2024 13:19-0400 Heart rate 67 /min Dr. Farnaz Simon Work Phone: [facility] 03-17-2024 13:19-0400 Respiratory rate 16 /min Dr. Farnaz Simon Work Phone: [facility] 03-17-2024 13:19-0400 SaO2% (BldA) [Mass fraction] 100 % Dr. Farnaz Simon Work Phone: [facility] 03-17-2024 13:19-0400 Systolic blood pressure 129 mm[Hg] Dr. Farnaz Simon Work Phone: [facility] 03-17-2024 08:07-0400 Inhaled oxygen flow rate 4 L/min Dr. Farnaz Simon Work Phone: [facility] 03-16-2024 17:24-0400 Body height 162.[address] Farnaz Simon Work Phone: [facility] 03-16-2024 16:24-0400 Body mass index (BMI) [Ratio] 42.7 kg/m2 Dr. Farnaz Simon Work Phone: [facility] 03-16-2024 16:24-0400 Body weight 112.[address] Farnaz Simon Work Phone: [facility] 04-10-2023 13:56-0400 Body height 162.[address] Arslan Simon Work Phone: [facility] 04-10-2023 13:56-0400 Body mass index (BMI) [Ratio] 43.1 kg/m2 Dr. Arslan Simon Work Phone: [facility] 04-10-2023 13:56-0400 Body temperature 97.3 [degF] Dr. Arslan Simon Work Phone: [facility] 04-10-2023 13:56-0400 Body weight 114.[address] Arslan Simon Work Phone: [facility] 04-10-2023 13:56-0400 Diastolic blood pressure 84 mm[Hg] Dr. Arslan Simon Work Phone: [facility] 04-10-2023 13:56-0400 Heart rate 66 /min Dr. Arslan Siomn Work Phone: [facility] 04-10-2023 13:56-0400 Respiratory rate 18 /min Dr. Arslan Simon Work Phone: [facility] 04-10-2023 13:56-0400 SaO2% (BldA) [Mass fraction] 95 % Dr. Arslan Simon Work Phone: [facility] 04-10-2023 13:56-0400 Systolic blood pressure 148 mm[Hg] Dr. Arslan Simon Work Phone: [facility] 03-15-2022 10:57-0400 Body temperature 97.9 [degF] Dr. Arslan Simon Work Phone: [facility] Work Phone: 03-15-2022 10:57-0400 Diastolic blood pressure 87 mm[Hg] Dr. Arslan Simon Work Phone: [facility] Work Phone: 03-15-2022 10:57-0400 Heart rate 84 /min Dr. Arslan Simon Work Phone: [facility] Work Phone: 03-15-2022 10:57-0400 Respiratory rate 18 /min Dr. Arslan Simon Work Phone: [facility] Work Phone: 03-15-2022 10:57-0400 SaO2% (BldA) [Mass fraction] 92 % Dr. Arslan Simon Work Phone: [facility] Work Phone: 03-15-2022 10:57-0400 Systolic blood pressure 136 mm[Hg] Dr. Arslan Simon Work Phone: [facility] Work Phone: 03-14-2022 18:36-0400 Body height 162.[address] Arslan Simon Work Phone: [facility] Work Phone: 03-14-2022 18:36-0400 Body mass index (BMI) [Ratio] 42.3 kg/m2 Dr. Arslan Simon Work Phone: [facility] Work Phone: 03-14-2022 18:36-0400 Body weight 111.[address] Arslan Simon Work Phone: [facility] Work Phone: 03-14-2022 18:14-0400 Body temperature 97.3 [degF] [facility] Work Phone: 03-14-2022 18:14-0400 Diastolic blood pressure 92 mm[Hg] [facility] Work Phone: 03-14-2022 18:14-0400 Heart rate 72 /min [facility] Work Phone: 03-14-2022 18:14-0400 Respiratory rate 15 /min [facility] Work Phone: 03-14-2022 18:14-0400 Systolic blood pressure 132 mm[Hg] [facility] Work Phone: 03-14-2022 18:05-0400 SaO2% (BldA) [Mass fraction] 96 % [facility] Work Phone: 03-14-2022 14:59-0400 Body height 162.56 cm [facility] Work Phone: 03-14-2022 14:59-0400 Body mass index (BMI) [Ratio] 43.2 kg/m2 [facility] Work Phone: 03-14-2022 14:59-0400 Body weight 114.1 kg [facility] Work Phone: 02-17-2022 08:37-0400 Body height 163.8 cm Robert Garsia MD Work Phone: [facility] 02-17-2022 08:37-0400 Body weight 112.95 kg Robert Garsia MD Work Phone: [facility] 02-17-2022 08:37-0400 Diastolic blood pressure 82 mm[Hg] Robert Garsia MD Work Phone: [facility] 02-17-2022 08:37-0400 Systolic blood pressure 138 mm[Hg] Robert Garsia MD Work Phone: [facility] Encounters Encounter Date Encounter Type Care Provider Facility Start: 06-16-2025 ambulatory [facility] Facility:[facility] Start: 06-08-2025 End: 06-08-[address] Farnaz Simon MD Work Phone: -Laboratory Start: 06-08-2025 End: 06-08-[address] Rudy Ortiz MD -Laboratory Work Phone: Start: 06-08-2025 End: 06-08-[address] Rudy Ortiz MD -[facility] Work Phone: Start: 06-08-2025 End: 06-08-[address] Farnaz Simon MD Work Phone: -[facility] Start: 06-08-2025 End: 06-08-2025 ambulatory [facility] Facility:[facility] Start: 05-18-[address] Rudy Ortiz MD -[facility] Start: 05-18-2025 End: 05-18-[address] Rudy Ortiz MD -[facility] Work Phone: Start: 05-18-2025 End: 05-18-[address] Farnaz Simon MD Work Phone: [facility] Work Phone: Start: 04-11-2025 ambulatory Farnaz Simon Faci lity:[facility] Start: 04-11-2025 Non-patient / Non-visit [facility]. Awad Of deanna [facility] Start: 04-11-2025 End: 04-11-2025 Patient encounter procedure Sindi Crispin RESTAURANT SHIFT SUPERVISOR-C -Cardiovascular Services Work Phone: Start: 04-11-2025 End: 04-11-2025 ambulatory Farnaz Simon Facility:[facility] Start: 03-20-2025 End: 03-20-[address] FARNAZ SIMON MD Facility:[facility] Start: 03-20-2025 End: 03-20-2025 Patient encounter procedure SINDI CRISPIN INSPECTOR LINE-ECOLOGY TEACHER [facility] Start: 02-22-2025 End: 02-22-[address] Farnaz Simon MD Work Phone: [facility] Work Phone: Start: 02-22-2025 End: 02-22-[address] Mikhail Cardenas MD -Ultrasound, [facility] Work Phone: Start: 02-22-2025 End: 02-22-2025 ambulatory Farnaz Simon Facility:[facility] Start: 02-13-2025 Non-patient / Non-visit Dr. Awad Of deanna [facility] Start: 02-13-2025 End: 02-13-[address] Farnaz Simon MD Work Phone: [facility] Work Phone: Start: 02-13-2025 End: 02-13-[address] Farnaz Simon MD -Cardiovascular Services Work Phone: Start: 02-13-2025 End: 02-13-2025 ambulatory Farnaz Simon Facility:[facility] Start: 01-05-2025 End: 01-05-[address] Farnaz Simon MD -Laboratory, [facility] Start: 01-05-2025 End: 01-05-2025 ambulatory Farnaz Simon Facility:[facility] Start: 01-04-2025 End: 01-04-[address] Farnaz Simon MD -Radiology, [place] Work Phone: Start: 01-04-2025 End: 01-04-2025 ambulatory Farnaz Simon Facility:[facility] Start: 01-03-2025 End: 03-05-2025 Follow-up encounter Lalo King MD Work Phone: OB/Gynecology Start: 01-02-2025 End: 01-02-2025 ambulatory ROBERT GARSIA Facility:[facility] Start: 01-02-2025 Encounter for gynecological examination (general) (routine) without abnormal findings ROBERT GARSIA [facility] Start: 01-02-2025 End: 01-02-2025 Patient encounter status Screen [facility] Start: 01-02-2025 End: 01-02-2025 Subsequent hospital visit by physician Screen Mammo [facility] Mammogram Comment on above: Encounter for gyneco logical examination (general) (routine) without abnormal findings [Z01.419] Start: 10-19-2024 End: 10-19-2024 ambulatory ROBERT GARSIA Facility:[facility] Start: 10-19-2024 End: 10-19-2024 Patient encounter procedure Robert Garsia MD Work Phone: OB/Gynecology Comment on above: Encounter for gyneco logical examination (general) (routine) without abnormal findings (Primary Dx); Encounter for screening mammogram for breast cancer Start: 10-19-2024 End: 10-19-2024 Patient encounter status Robert Garsia MD Work Phone: [facility] Start: 03-16-2024 Non-patient / Non-visit Dr. Danyell Simon Work Phone: [facility] Work Phone: Start: 03-16-2024 End: 03-17-2024 Evaluation and management of inpatient Dr. Farnaz Simon Work Phone: [facility]-Medical Surgical 3 Work Phone: Start: 03-16-2024 End: 03-17-[address] Farnaz Simon Work Phone: [facility] Work Phone: Start: 03-14-2024 End: 03-15-[address] CHADD BRAND MD Facility:B Start: 03-14-2024 End: 03-14-[address] CHADD BRAND MD [facility] Start: 03-02-2024 End: 03-02-[address] Farnaz Simon Work Phone: [facility] Work Phone: Start: 02-24-2024 End: 02-24-[address] Farnaz Simon Work Phone: [facility] Work Phone: Start: 02-24-2024 End: 02-24-[address] Arslan Simon Work Phone: [facility], [facility] Work Phone: Start: 02-19-2024 End: 02-19-2024 Non-patient / Non-visit Dr. Arslan Simon Work Phone: [facility] Work Phone: Start: 02-19-2024 End: 02-19-[address] Arslan Simon Work Phone: [facility]-Cat Scan, [facility] Work Phone: Start: 02-19-2024 End: 02-19-2024 Admission to same day surgery center Dr. Arslan Simon Work Phone: [facility]-Surgical Day Care Start: 02-19-2024 End: 02-19-[address] Arslan Simon Work Phone: [facility] Work Phone: Start: 01-01-2024 Documentation procedure Mammog indigo Coordinator [facility] Start: 01-01-2024 Letter encounter Mammography Coordinator [facility] Department Start: 12-31-2023 End: 12-31-2023 Subsequent hospital visit by physician Screen Mammo [facility] Wstr Mammogram Comment on above: Encounter for screen ing mammogram for malignant neoplasm of breast [Z12.31] Start: 12-10-2023 End: 12-10-2023 ambulatory [facility] Work Phone: Start: 12-10-2023 End: 12-10-2023 Patient encounter procedure [facility]-Outpatient Bone Densitometry Work Phone: Start: 11-17-2023 End: 11-17-2023 ambulatory [facility] Work Phone: Start: 11-17-2023 End: 11-17-2023 Patient encounter procedure [facility]-Cat Scan, [facility] Work Phone: Start: 11-04-2023 End: 11-04-2023 ambulatory [facility] Work Phone: Start: 11-04-2023 End: 11-04-2023 Patient encounter procedure [facility]-Laboratory, [place] Work Phone: Start: 08-21-2023 End: 08-22-[address] FARNAZ SIMON MD Facility:B Start: 08-21-2023 End: 08-21-[address] CHADD BRAND MD [facility] Start: 07-17-2023 End: 07-17-[address] Arslan Simon Work Phone: [facility] Work Phone: Start: 07-17-2023 End: 07-17-[address] Arslan Simon Work Phone: [facility], [facility] Work Phone: Start: 04-10-2023 End: 04-10-[address] Arslan Simon Work Phone: [facility] Work Phone: Start: 04-10-2023 End: 04-10-[address] Arslan Simon Work Phone: [facility] Start: 03-19-2023 End: 03-19-2023 ambulatory [facility] Work Phone: Start: 03-19-2023 End: 03-19-2023 Patient encounter procedure [facility], [facility] Start: 03-18-2023 End: 03-18-2023 Patient encounter procedure [facility] Start: 03-16-2023 End: 03-16-2023 ambulatory [facility] Work Phone: Start: 03-16-2023 End: 03-16-2023 Patient encounter procedure [facility] Start: 02-23-2023 End: 02-23-[address] CHADD BRAND MD [facility] Start: 02-10-2023 End: 02-10-[address] CHADD BRAND MD [facility] Start: 07-03-2022 End: 07-03-[address] Arslan Simon Work Phone: [facility] Start: 03-15-2022 Non-patient / Non-visit Dr. Danyell Simon Work Phone: [facility] Inpatient Physicians Start: 03-15-2022 Non-patient / Non-visit Dr. Danyell Simon Work Phone: [facility] Start: 03-15-2022 Non-patient / Non-visit Dr. Danyell Simon Work Phone: [facility] Start: 03-14-2022 End: 03-15-2022 Evaluation and management of inpatient [facility]-Progressive Care Unit Start: 03-10-2022 End: 03-10-2022 Patient encounter procedure [facility] Start: 02-17-2022 End: 02-17-2022 Subsequent [facility] visit [facility] Comment on above: Encounter for gyneco logical examination (general) (routine) without abnormal findings [Z01.419] Start: 02-17-2022 End: 02-17-2022 Patient encounter procedure Robert Garsia MD Work Phone: OB/Gynecology Comment on above: Encounter for gyneco logical examination (general) (routine) without abnormal findings; Encounter for screening mammogram for breast cancer Start: 02-17-2022 End: 02-17-2022 Patient encounter status Robert Garsia MD Work Phone: OB/Gynecology Start: 01-08-2022 End: 01-08-2022 Patient encounter procedure [facility] Procedures Date Procedure Procedure Detail Performing Clinician Start: 06-08-2025 D-dimer assay, quantitative Dr. Vannesa Simon MD Work Phone: Comment on above: NORMAL D-Dimer level (<0.50) indicates n o DVT or PE. Start: 06-08-[address] Esa Simon MD Work Phone: Start: 06-08-2025 Total iron binding capacity measurement Dr. Farnaz Simon MD Work Phone: Start: 05-18-[address] Farnaz Simon MD Work Phone: Comment on above: Test Ordered: [id number] JAK2 V617F, reflex to [id number](s) [id number] V617F Resultwas developed and its performance characteristicsdetermined by [employer]. It has not been cleared or approvedby the Food and Drug Administration.Specimen Type Comment: HOLDEN Reference Range: .NOT PROVIDEDJAK2 V617F Result Comment HOLDEN Reference Range: .NEGATIVEThe JAK2 V617F mutation is not detected in the providedspecimen of this individual. Results should be interpretedin conjunction with clinical and other laboratory findingsfor the most accurate interpretation.Reflex Comment HOLDEN Reference Range: .Reflex to JAK2 Exon 12-15 Mutation Analysis is indicated.E12-15 Result Comment HOLDEN Reference Range: .NEGATIVE JAK2 mutations were not detected in exons 12, 13, 14and 15. The G to T nucleotide change encoding the L377Nzdniipml was not detected. This result does not rule outthe presence of JAK2 mutation at a level below thedetection sensitivity of this assay, the presence of othermutations outside the analyzed region of the JAK2 gene, orthe presence of a myeloproliferative or other neoplasm.Result must be correlated with other clinical data for themost accurate diagnosis.V617F Rfx E12-15 Background Comment TG Reference Range: . Molecular testing of blood or bone marrow is useful inthe evaluation of suspected myeloproliferative neoplasms(MPN). This test will assess for the JAK2 V617F (exon 14)mutation first and will reflex JAK2 exon 12 to 15 mutationanalysis if the JAK2 V617F mutation is negative. The JAK2 (Janus kinase 2) gene encodes for a non-receptor protein tyrosine kinase that activates cytokineand growth factor signaling. The V617F (c.1849 G>T)mutation results in constitutive activation of JAK2 anddownstream STAT5 and ERK signaling. The V617F mutation isobserved in approximately 95% of polycythemia vera (PV),60% of essential thrombocythemia (ET) and primarymyelofibrosismia (PMF). It is also infrequently present(3-5%) in myelodysplastic syndrome, chronicmyelomonocytic leukemia, and other atypical chronic myeloiddisorders. A small percentage of JAK2 mutation positivepatients (3.3%) contain other non-V617F mutations withinexons 12 to 15. In particular, mutations in exon 12 of MKY7dcvs been described in approximately 3% of patients withPV. JAK2 mutation allele burden correlates with clinicalphenotype, with low levels of mutant allelecharacterized by thrombocytosis, intermediate levels witherythrocytosis, and high mutant allele burden correlatingwith enhanced myelopoiesis of the BM, leukocytosis,increasing spleen size, and circulating YC38-qhwafifralxud. Limitations This assay has a sensitivity of approximately 1% VAFfor JAK2 V617F, and 2.5% VAF for other mutations in OIY1jdkul 12 to 15. Deletions in JAK2 up to 6 bp and insertionsup to 34 bp have been detected in validation studies.Method Comment Reference Range: .Amplicon-based next generation sequencing.References Comment Reference Range: .Libertad N, Aldulcei Y, Abalaleah H, Pepper S. Detection ofmutations in JAK2 exons 12-15 by [place] sequencing. Int JLab Hematol. 2016 Dec;38(1):34-41. doi: 10.1111/ijlh.26334.Epub 2014Aug 03. PMID: 11512800.Nicky DA, Chago A, Go R, Art J, Domi MJ, Juan Carlos MM, Ashley CD, Marisol M, Franchesca JW. The 2016revision to the World Health Organization classification ofmyeloid neoplasms and acute leukemia. Blood. 2016 ;127(20):2391-405. doi: 10.1182/odoxi-7348-88-762999.Epub 2016 Mar 03. PMID: 65951616.Nadine W, Emily H, Zach X, Jordi CH, Zach HILL, Salinas Moran. Mutation profile of JAK2 transcripts inpatients with chronic myeloproliferative neoplasias. J MolDiagn. 2008;11(1):49-53.doi:10.2353/jmoldx.2009.326386. Epub 2007Nov 03. PMID:12438742; PMCID: [id number].NCCN Clinical Practice Guidelines in Oncology (NCCNGuidelines) Myeloproliferative Neoplasms Version 3.2021 -July 03, 2022.Mendez LUNA, manuscript editor. WHO classification of Tumours ofHaematopoietic and Lymphoid Tissues. 4th edn. Guerra,[place]: International Agency for Research on Cancer; 2017.Dianne Ames. Primary myelofibrosis: 2020 update on diagnosis,risk-stratification and management. Am J Hematol. ;96(1):145-162. doi: 10.1002/ajh.68172. Ep2019. PMID: 57082024.Shannan Mckoy. Genetic basis and molecularpathophysiology of classical myeloproliferativeneoplasms. Blood. 2016 9;129(6):667-679. doi:10.1182/tdovk-3669-67-728024. Ep2015Nov 18. PMID:34700569.Director Review Comment Reference Range: .Thomas Gilmore, PhD, [facility] Director, Molecular Oncology [facility] [place] [address] Performed at: [facility] [id number] [place], [place] [id number] Director: Jez Nazario [facility], Phone: [phone] at: [facility] [id number] [place], [place] [id number] Director: Jez Nazario [facility], Phone: [phone] at: [address] [id number] Director: Glenn Martínez PhD, Phone: [phone] Test Ordered: [id number] MPL Mutation AnalysisMPL Mutation Analysis Result: Comment Reference Range: .No MPL mutation was identified in the provided specimen ofthis individual. Results should be interpreted inconjunction with clinical and other laboratory findings forthe most accurate interpretation.Background: Comment Reference Range: .MPL (myeloproliferative leukemia virus oncogene homology)belongs to the hematopoietin superfamily and enables itsligand thrombopoietin to facilitate both globalhematopoiesis and megakaryocyte growth and differentiation.MPL W515 mutations are present in patients with primarymyelofibrosis (PMF) and essential thrombocythemia (ET) at afrequency of approximately 5% and 1% respectively. HjpF442 mutation is detected in patients with hereditarythrombocythemia.Methodology: Comment Reference Range: .Genomic DNA was purified from the provided specimen. MPLgene region covering the S505N and W515L/K mutations weresubjected to PCR amplification and bi-directionalsequencing in duplicate to identify sequence variations.This assay has a sensitivity to detect approximately 20-25%population of cells containing the MPL mutations in abackground of non-mutant cells. This assay will not detectthe mutation below the sensitivity of this assay. Molecular-based testing is highly accurate, but as in any laboratorytest, rare diagnostic errors may occur.References: Comment HOLDEN Reference Range: .1. Shikha PALMA et al. (2006). UPK023 mutations in myeloproliferative and other myeloid disorders: a study of 1182 patients. Blood 108:2977-8785.2. Sofia Dempsey and Wei MILLS. (2008). JAK2 and MPL mutations in myeloproliferative neoplasms: discovery and science. Leukemia 22:6054-3711.3. Riley GOODSON et al. (2009). 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 Haematologica 94(10):1368- 1374.Director Review: Comment Reference Range: .Isamar Gilmore, PhD, FACMGDirector, Molecular OncologyEncompass Health [facility] Center for Molecular Biology and PathologyResReading, [place] [phone] test was developed and its performance characteristicsdetermined by [facility]. It has not been cleared orapproved by the Food and Drug Administration.Performed at: [facility] [id number] [place], [place] [id number] Director: Jez Nazario [facility], Phone: [phone] at: [facility] [id number] [place], [place] [id number] Director: Jez Nazario [facility], Phone: [phone] at: [address] [id number] Director: Glenn Martínez PhD, Phone: [phone] Start: 04-11-2025 Cardiovascular stress test using pharmacologic stress agent Dr. Farnaz Simon MD Work Phone: Start: 02-22-2025 US scan of thyroid Dr. Farnaz Simon MD Work Phone: Start: 01-04-2025 X-ray of chest, PA and lateral views Dr. Farnaz Simon MD Work Phone: Start: 03-16-2024 Plain X-ray of shoulder Dr. Farnaz Simon Work Phone: Start: 03-16-2024 Reverse prosthetic total arthroplasty of right shoulder Dr. Farnaz Simon Work Phone: Start: 02-24-2024 US scan of thyroid Dr. Arslan Simon Work Phone: Start: 02-19-2024 Nasal Screen MRSA/MSSA Dr. Arslan Simon Work Phone: Start: 02-19-2024 CT of upper limb without contrast Dr. Danyell Simon Work Phone: Start: 12-10-2023 Dual energy X-ray absorptiometry Start: 11-17-2023 CT of thorax with contrast Start: 11-04-2023 Plain chest X-ray Start: 07-17-[address] Arslan Simon Work Phone: Start: 03-19-2023 US scan of thyroid Start: 02-10-[address] CHADD BRAND MD Comment on above: 1. Procedure narrative: Transthoracic ec hocardiography was performed. Image quality was poor. 2. Left ventricle: Not well visualized. The cavity size is normal. Wall thickness is moderately to severely increased. Poor images, wall thickness might be overestimated Strain Value is Normal Systolic function is normal. The estimated ejection fraction is 60-65%. Wall motion is normal; there are no regional wall motion abnormalities. 3. Ventricular septum: Thickness is increased. 4. Aortic valve: Thickening, consistent with sclerosis. 5. Right ventricle: Not well visualized. 6. Right atrium: The estimated right atrial pressure is 3 mm Hg. Recommendations: Strain pattern does not correspond to amyloid Start: 08-26-[address] CHADD BRAND MD Start: 03-15-2022 Radionuclide imaging of perfusion of myocardium under exercise stress Dr. Arslan Simon Work Phone: Start: 03-15-[address] CHADD KOENIG MD Start: 03-15-[address] CHADD BRAND MD Comment on above: EF 55-60% Start: 03-14-2022 Plain chest X-ray Start: 02-17-2022 COLLEEN SCREENING W MALACHI Robert Garsia MD Work Phone: Start: 02-17-2022 Mammography Robert Garsia MD Work Phone: Start: 08-25-2017 Colonoscopy Robert Garsia MD Work Phone: Start: 04-28-2012 Lipid 1996 panel - Serum or Plasma Screen Wstr Plan of Treatment Date Care Activity Detail Author Start: 01-02-2026 Screening for malignant neoplasm of breast Mammogram Screening [facility] Start: 05-18-2025 Erythropoietin (EPO) [Units/volume] in Serum or Plasma [facility] Start: 05-18-2025 Procedure [facility] Start: 05-18-2025 [facility] Start: 01-02-2025 End: 01-02-2025 Patient encounter procedure 01/02/2025 9:30 AM EST Appointment Mammogram [address] [place] [address] Encounter for screening mammogram for breast cancer [Z12.31] Mammogram Comment on above: Encounter for screening mammogram for br east cancer [Z12.31] Start: 12-31-2024 Screening for malignant neoplasm of breast Mammogram Screening [facility] Start: 11-23-2024 Advance Directive Discussion Advance Directive Discussion [facility] Start: 07-24-2024 Covid-19 Vaccine ( season) Covid-19 Vaccine ( season) [facility] Start: 03-17-2024 Patient discharge [facility] Start: 03-16-2024 Oxygen therapy [facility] Start: 03-16-2024 Application of intermittent pneumatic compression device [facility] Start: 03-16-2024 Following clinical pathway protocol [facility] Start: 03-16-2024 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, Reverse (Right) [facility] Start: 03-16-2024 Ambulation therapy management [facility] Start: 03-16-2024 Application of device [facility] Start: 03-16-2024 Assessment of risk of venous thromboembolism [facility] Start: 03-16-2024 Catheterization of vein [facility] Start: 03-16-2024 Following clinical pathway protocol [facility] Start: 03-16-2024 Incentive spirometry [facility] Start: 03-16-2024 Introduction of urinary catheter [facility] Start: 03-16-2024 Measuring intake and output [facility] Start: 03-16-2024 Neurovascular assessment [facility] Start: 03-16-2024 Patient education [facility] Start: 03-16-2024 Procedure discontinued [facility] Start: 03-16-2024 Provision of activity privileges [facility] Start: 03-16-2024 Recommendation to continue with treatment [facility] Start: 03-16-2024 Referral to occupational therapist [facility] Start: 03-16-2024 Vital signs measurements [facility] Start: 03-16-2024 Wound care [facility] Start: 03-16-2024 [facility] Start: 03-16-2024 Admission procedure [facility] Start: 03-16-2024 Consultation [facility] Start: 03-16-2024 Medication education [facility] Start: 02-24-2024 US scan of thyroid Thyroid [facility] Start: 11-23-2023 Advance Directive Discussion Advance Directive Discussion [facility] Start: 11-23-2023 Depression Assessment Depression Assessment [facility] Start: 07-24-2023 Covid-19 Vaccine () Covid-19 Vaccine () [facility] Start: 03-19-2023 US scan of thyroid Thyroid [facility] Start: 03-18-2023 [facility] Start: 02-17-2023 Mammography MAMMOGRAM [facility] Start: 02-17-2023 Screening for malignant neoplasm of breast Mammogram Screening [facility] Start: 08-25-2022 Colonoscopy COLONOSCOPY [facility] Start: 08-25-2022 COLORECTAL CANCER SCREENING COLORECTAL CANCER SCREENING [facility] Start: 08-25-2022 Screening for malignant neoplasm of colon [facility] Start: 03-15-2022 Patient discharge [facility] Work Phone: Start: 03-14-2022 Ambulation without limitation [facility] Work Phone: Start: 03-14-2022 Assessment of risk of venous thromboembolism [facility] Work Phone: Start: 03-14-2022 Catheterization of vein [facility] Work Phone: Start: 03-14-2022 Insertion of catheter into peripheral vein [facility] Work Phone: Start: 03-14-2022 Measuring intake and output [facility] Work Phone: Start: 03-14-2022 Providing care according to standard [facility] Work Phone: Start: 03-14-2022 [facility] Work Phone: Start: 03-14-2022 End: 03-14-2022 Following clinical pathway protocol [facility] Work Phone: Start: 03-14-2022 Admission procedure [facility] Work Phone: Start: 11-23-2021 ADVANCE DIRECTIVE DISCUSSION ADVANCE DIRECTIVE DISCUSSION [facility] Start: 09-03-2018 DIABETES SCREEN DIABETES SCREEN [facility] Start: 09-03-2018 Diabetes Screening Diabetes Screening [facility] Start: 01-19-2018 SHINGRIX VACCINE (3 of 3) SHINGRIX VACCINE (3 of 3) [facility] Start: 04-28-2017 Lipid panel Lipid Screening [facility] Start: 04-28-2017 LIPID SCREEN LIPID SCREEN [facility] Start: 2012 RSV Vaccine (1 - 1-dose 60+ series) RSV Vaccine (1 - 1-dose 60+ series) [facility] Start: 2012 RSV Vaccine (1 - Risk 60-74 years 1-dose series) RSV Vaccine (1 - Risk 60-74 years 1-dose series) [facility] Start: 02-15-1997 COLOGUARD (FIT-DNA) COLOGUARD (FIT-DNA) [facility] Start: 02-15-[address] COLONOGRAPHY [facility] Start: 02-15-1997 FECAL OCCULT BLOOD FECAL OCCULT BLOOD [facility] Start: 02-15-1997 Screening for malignant neoplasm of colon [facility] Start: 02-15-1997 SIGMOIDOSCOPY SIGMOIDOSCOPY [facility] Start: 02-15-1971 Urine microalbumin profile [facility] Start: 02-15-1970 ANNUAL PCP TEAM CHRONIC DISEASE VISIT ANNUAL PCP TEAM CHRONIC DISEASE VISIT [facility] Start: 02-15-1970 Anxiety Screening Anxiety Screening [facility] Start: 02-15-1970 BP CONTROLLED (<130/80) BP CONTROLLED (<130/80) [facility] Start: 02-15-1970 Depression Screening Depression Screening [facility] Start: 02-15-1970 HEPATITIS C SCREENING HEPATITIS C SCREENING [facility] Start: 02-15-1970 Hepatitis C screening Hepatitis C Screening [facility] Start: 1964 Adult depression screening assessment DEPRESSION SCREENING [facility] C reactive protein [Mass/volume] in Serum or Plasma [facility] CBC W Auto Different ial panel - Blood [facility] Comprehensive metabo lic 2000 panel - Serum or Plasma [facility] CT Abdomen [facility] D-dimer assay, quantitative [facility] DBT Breast - bilater al screening COLLEEN SCREENING [facility] Routine Encounter for screening mammogram for malignant neoplasm of breast 12/31/2023 9:57 AM EST [facility] Work Phone: End: 11-18-2025 DBT Breast - bilateral screening COLLEEN SCREENING [facility] Routine Encounter for gynecological examination (general) (routine) without abnormal findings Encounter for screening mammogram for breast cancer 1 Occurrences starting 10/19/2024 until 11/18/2025 [facility] Work Phone: Comment on above: 1 Occurrences starting 10/19/2024 until 11/18/2025 DBT Breast - bilater al screening COLLEEN SCREENING [facility] Routine Encounter for gynecological examination (general) (routine) without abnormal findings Encounter for screening mammogram for breast cancer 01/02/2025 10:05 AM EST [facility] Work Phone: Electrocardiographic procedure [facility] Erythrocyte sediment ation rate [facility] Erythropoietin (EPO) [Units/volume] in Serum or Plasma [facility] Erythropoietin (EPO) [Units/volume] in Serum or Plasma [facility] Ferritin [Mass/volum e] in Serum or Plasma [facility] Iron and Iron bindin g capacity panel - Serum or Plasma [facility] JAK2 gene [id number] [Presence] in Blood or Tissue by Molecular genetics method [facility] Lactate dehydrogenas e measurement [facility] End: 03-19-2023 COLLEEN SCREENING [facility] OCLLEEN SCREENING [facility] Routine Encounter for gynecological examination (general) (routine) without abnormal findings Encounter for screening mammogram for breast cancer 1 Occurrences starting 02/17/2022 until 03/19/2023 [facility] Work Phone: Comment on above: 1 Occurrences starting 02/17/2022 until 03/19/2023 Partial thromboplast in time, activated [facility] Patient referral [facility] Work Phone: Prothrombin time [facility] Reticulocyte count [facility] [place] Thyroid gland [facility] XR Chest PA and Lateral [facility] Immunizations Immunization Date Immunization Notes Care Provider Fa cility 02-20-2021 COVID-19, mRNA, LNP- S, PF, 100 mcg or 50 mcg dose; Translations: [Moderna COVID-19 Vaccine] DR CHADD BRAND MD [facility] 01-23-2021 COVID-19, mRNA, LNP- S, PF, 100 mcg or 50 mcg dose; Translations: [Moderna COVID-19 Vaccine] DR CHADD BRAND MD [facility] 08-17-2020 influenza, injectabl e, quadrivalent, contains preservative Robert Garsia MD Work Phone: [facility] 09-20-2019 influenza, seasonal, injectable Robert Garsia MD Work Phone: [facility] 09-13-2018 influenza, seasonal, injectable Robert Garsia MD Work Phone: [facility] 06-15-2018 pneumococcal polysaccharide vaccine, 23 valent Robert Garsia MD Work Phone: [facility] 06-10-2017 pneumococcal conjuga te vaccine, 13 valent Robert Garsia MD Work Phone: [facility] 04-21-2014 zoster vaccine, live Robert Garsia MD Work Phone: [facility] Payers Date Payer Category Payer Self-pay [id number] 2018 [facility] ANTHEM ME DICARE SUPPLEMENT [id number] 2018 Unknown ANTHEM ANTHEM ME DICARE SUPPLEMENT [id number] 2018-Present [phone] [address] [place] [address] Indemnity [id number] 2018 Unknown [id number] 2018 Unknown [id number] 2017 Medicare MEDICARE MEDICAR E A AND B [id number] 2017-Present [phone] [place] [address] Medicare [id number] 2017 Unknown [id number] 2017 Medicare [id number] 2017 Medicare [id number] 1950 Unknown [id number]. 627 1950 Unknown [id number]. 627 1950 Unknown [id number]. 627 Unknown [id number]. 462 Unknown [id number]. 462 Unknown [id number] 2.16.840.1.357267.3.579.2. 462 Unknown [id number] 2.16.840.1.026563.3.579.2. 462 Unknown [id number] 2.16.840.1.927266.3.579.2. 462 Unknown [id number] 2.16.840.1.985565.3.579.2. 462 Unknown [id number] 2.16.840.1.935288.3.579.2. 462 Unknown [id number] 2.16.840.1.372585.3.579.2. 462 Unknown [id number] [id number]. 462 Unknown [id number] 2.16.840.1.186565.3.579.2. 462 Unknown [id number]. 462 Unknown [id number]. 462 Social History Date Type Detail Facility Start: 02-03-2023 End: 05-08-2025 Tobacco smoking status NHIS Never smoked tobacco [facility] Work Phone: Start: 02-17-2022 End: 10-19-2024 Alcohol intake Current non-drinker of alcohol (finding) [facility] Start: 1950 Sex Assigned At Not on file [facility] Start: 02-07-2022 End: 02-17-2022 Exposure to SARS-CoV-2 (event) Not sure [facility] Start: 03-14-2022 End: 03-02-2024 Tobacco smoking status NHIS Unknown if ever smoked [facility] Start: 07-25-2020 Non-smoker [facility] Start: 1950 Sex Assigned At Female A [facility] Start: 05-23-2013 End: 10-19-2024 Tobacco use and exposure Smokeless tobacco non-user [facility] Start: 02-17-2022 End: 12-31-2023 History of Social function [facility] Start: 02-17-2022 End: 12-31-2023 Tobacco use panel [facility] National Score (1-10 0), lower number is lower risk 58 [facility] Start: 01-22-2021 End: 02-18-2025 Sex Female (finding) [facility] Sexual Orientation Kileydavie moiseada [facility] Medical Equipment Procedure Code Equipment Code Equipment Origin al Text Equipment Identifier Dates Asymmetric Patella FDA Start: 08-08-2020 CEMENT,BONE ORIANA H 1/2 BATCH FDA Start: 08-08-2020 Cruciate Retaini ng Femoral FDA Start: 08-08-2020 Tibial Bearing Insert FDA Sta rt: 08-08-2020 Tibial Component FDA Start: 08-08-2020 Asymmetric Patella FDA Start: 08-08-2020 CEMENT,BONE ORIANA H 1/2 BATCH FDA Start: 08-08-2020 Cruciate Retaini ng Femoral FDA Start: 08-08-2020 Tibial Bearing Insert FDA Sta rt: 08-08-2020 Tibial Component FDA Start: 08-08-2020 Asymmetric Patella FDA Start: 08-08-2020 CEMENT,BONE ORIANA H 1/2 BATCH FDA Start: 08-08-2020 Cruciate Retaini ng Femoral FDA Start: 08-08-2020 Tibial Bearing Insert FDA Sta rt: 08-08-2020 Tibial Component FDA Start: 08-08-2020 Asymmetric Patella FDA Start: 08-08-2020 CEMENT,BONE ORIANA H 1/2 BATCH FDA Start: 08-08-2020 Cruciate Retaini ng Femoral FDA Start: 08-08-2020 Tibial Bearing Insert FDA Sta rt: 08-08-2020 Tibial Component FDA Start: 08-08-2020 Asymmetric Patella FDA Start: 08-08-2020 CEMENT,BONE ORIANA H 1/2 BATCH FDA Start: 08-08-2020 Cruciate Retaini ng Femoral FDA Start: 08-08-2020 Tibial Bearing Insert FDA Sta rt: 08-08-2020 Tibial Component FDA Start: 08-08-2020 Asymmetric Patella FDA Start: 08-08-2020 CEMENT,BONE ORIANA H 1/2 BATCH FDA Start: 08-08-2020 Cruciate Retaini ng Femoral FDA Start: 08-08-2020 Tibial Bearing Insert FDA Sta rt: 08-08-2020 Tibial Component FDA Start: 08-08-2020 Asymmetric Patella FDA Start: 08-08-2020 CEMENT,BONE ORIANA H 1/2 BATCH FDA Start: 08-08-2020 Cruciate Retaini ng Femoral FDA Start: 08-08-2020 Tibial Bearing Insert FDA Sta rt: 08-08-2020 Tibial Component FDA Start: 08-08-2020 Asymmetric Patella FDA Start: 08-08-2020 CEMENT,BONE ORIANA H 1/2 BATCH FDA Start: 08-08-2020 Cruciate Retaini ng Femoral FDA Start: 08-08-2020 Tibial Bearing Insert FDA Sta rt: 08-08-2020 Tibial Component FDA Start: 08-08-2020 Asymmetric Patella FDA Start: 08-08-2020 CEMENT,BONE ORIANA H 1/2 BATCH FDA Start: 08-08-2020 Cruciate Retaini ng Femoral FDA Start: 08-08-2020 Tibial Bearing Insert FDA Sta rt: 08-08-2020 Tibial Component FDA Start: 08-08-2020 Asymmetric Patella FDA Start: 08-08-2020 CEMENT,BONE ORIANA H 1/2 BATCH FDA Start: 08-08-2020 Cruciate Retaini ng Femoral FDA Start: 08-08-2020 Tibial Bearing Insert FDA Sta rt: 08-08-2020 Tibial Component FDA Start: 08-08-2020 Asymmetric Patella FDA Start: 08-08-2020 CEMENT,BONE ORIANA H 1/2 BATCH FDA Start: 08-08-2020 Cruciate Retaini ng Femoral FDA Start: 08-08-2020 Tibial Bearing Insert FDA Sta rt: 08-08-2020 Tibial Component FDA Start: 08-08-2020 Asymmetric Patella FDA Start: 08-08-2020 CEMENT,BONE ORIANA H 1/2 BATCH FDA Start: 08-08-2020 Cruciate Retaini ng Femoral FDA Start: 08-08-2020 Tibial Bearing Insert FDA Sta rt: 08-08-2020 Tibial Component FDA Start: 08-08-2020 Asymmetric Patella FDA Start: 08-08-2020 CEMENT,BONE ORIANA H 1/2 BATCH FDA Start: 08-08-2020 Cruciate Retaini ng Femoral FDA Start: 08-08-2020 Tibial Bearing Insert FDA Sta rt: 08-08-2020 Tibial Component FDA Start: 08-08-2020 Asymmetric Patella FDA Start: 08-08-2020 CEMENT,BONE ORIANA H 1/2 BATCH FDA Start: 08-08-2020 Cruciate Retaini ng Femoral FDA Start: 08-08-2020 Tibial Bearing Insert FDA Sta rt: 08-08-2020 Tibial Component FDA Start: 08-08-2020 Asymmetric Patella FDA Start: 08-08-2020 CEMENT,BONE ORIANA H 1/2 BATCH FDA Start: 08-08-2020 Cruciate Retaini ng Femoral FDA Start: 08-08-2020 Tibial Bearing Insert FDA Sta rt: 08-08-2020 Tibial Component FDA Start: 08-08-2020 CENTRAL SCREW FDA Start: 03-16-2024 PERIPHERAL SCREW FDA Start: 03-16-2024 PERIPHERAL SCREW FDA Start: 03-16-2024 Polyethylene rev erse shoulder prosthesis cup [id number] FDA Start: 03-16-2024 Coated shoulder humeral stem prosthesis [id number] FDA Start: 03-16-2024 Reverse shoulder prosthesis head [id number] FDA Start: 03-16-2024 Reverse shoulder prosthesis base plate [id number] FDA Start: 03-16-2024 Asymmetric Patella FDA Start: 08-08-2020 CEMENT,BONE ORIANA H 1/2 BATCH FDA Start: 08-08-2020 Cruciate Retaini ng Femoral FDA Start: 08-08-2020 Tibial Bearing Insert FDA Sta rt: 08-08-2020 Tibial Component FDA Start: 08-08-2020 CENTRAL SCREW FDA Start: 03-16-2024 PERIPHERAL SCREW FDA Start: 03-16-2024 PERIPHERAL SCREW FDA Start: 03-16-2024 Asymmetric Patella FDA Start: 08-08-2020 CEMENT,BONE ORIANA H 1/2 BATCH FDA Start: 08-08-2020 Cruciate Retaini ng Femoral FDA Start: 08-08-2020 Tibial Bearing Insert FDA Sta rt: 08-08-2020 Tibial Component FDA Start: 08-08-2020 CENTRAL SCREW FDA Start: 03-16-2024 PERIPHERAL SCREW FDA Start: 03-16-2024 PERIPHERAL SCREW FDA Start: 03-16-2024 Asymmetric Patella FDA Start: 08-08-2020 CEMENT,BONE ORIANA H 1/2 BATCH FDA Start: 08-08-2020 Cruciate Retaini ng Femoral FDA Start: 08-08-2020 Tibial Bearing Insert FDA Sta rt: 08-08-2020 Tibial Component FDA Start: 08-08-2020 CENTRAL SCREW FDA Start: 03-16-2024 PERIPHERAL SCREW FDA Start: 03-16-2024 PERIPHERAL SCREW FDA Start: 03-16-2024 Asymmetric Patella FDA Start: 08-08-2020 CEMENT,BONE ORIANA H 1/2 BATCH FDA Start: 08-08-2020 Cruciate Retaini ng Femoral FDA Start: 08-08-2020 Tibial Bearing Insert FDA Sta rt: 08-08-2020 Tibial Component FDA Start: 08-08-2020 CENTRAL SCREW FDA Start: 03-16-2024 PERIPHERAL SCREW FDA Start: 03-16-2024 PERIPHERAL SCREW FDA Start: 03-16-2024 Asymmetric Patella FDA Start: 08-08-2020 CEMENT,BONE ORIANA H 1/2 BATCH FDA Start: 08-08-2020 Cruciate Retaini ng Femoral FDA Start: 08-08-2020 Tibial Bearing Insert FDA Sta rt: 08-08-2020 Tibial Component FDA Start: 08-08-2020 CENTRAL SCREW FDA Start: 03-16-2024 PERIPHERAL SCREW FDA Start: 03-16-2024 PERIPHERAL SCREW FDA Start: 03-16-2024 Goals Date Patient Goal Desired Activity /State Functional Status Date Assessment Result Facility 03-17-2024 Functional status Chair [facility] Work Phone: 03-15-2022 [facility] Work Phone: 08-31-2014 Are you deaf, or do you have serious difficulty hearing No 08/31/2014 10:12 AM Jessica Bryan MA No [facility] 08-31-2014 Are you blind, or do you have serious difficulty seeing, even when wearing glasses No 08/31/2014 10:12 AM Jessica Bryan MA No [facility] 08-31-2014 Do you have serious difficulty walking or climbing stairs No 08/31/2014 10:12 AM Jessica Bryan MA No [facility] 08-31-2014 Do you have difficul ty dressing or bathing No 08/31/2014 10:12 AM Jessica Bryan MA [facility] 08-31-2014 Because of a physica l, mental, or emotional condition, do you have difficulty doing errands alone such as visiting a physician's office or shopping No 08/31/2014 10:12 AM Jessica Bryan MA [facility] Mental Status Date Assessment Result Facility 03-17-2024 Cognitive function Voice/Name [facility] Work Phone: 03-15-2022 Cognitive function Voice/Name [facility] Work Phone: 03-14-2022 Cognitive function Voice/Name [facility] Work Phone: 08-31-2014 Because of a physica l, mental, or emotional condition, do you have serious difficulty concentrating, remembering, or making decisions No 08/31/2014 10:12 AM Jessica Bryan MA [facility] Clinical Notes 05-12-2007 to 06-08-2025 Note Date & Type Note Facility 06-08-2025 Progress note [facility] 06-08-2025 Progress note Note Date/Time June 08, 2025 4:10pm [facility] [address] [place] [address] OFFICE VISIT Date of Service: 06/08/25 1521 MR#: [id number] Acct: [id number] Name: PARVIZ TRACY Rep #: [id number] : 1950 From: Rudy Ortiz MD Age/Sex: 75/F Location: [facility] Status: Signed HPI Subjective Date of Service 06/08/25 Chief Complaint Referred for evaluation of polycythemia. History of Present Illness 75-year-old woman has had mild polycythemia since 2014. She had JAK2 V6 17F done on 03/18/2023 which was negative. Erythropoietin level at that time was 13.8. Recently hemoglobin has been persistently above normal so referred for further evaluation. She denied smoking, drinking alcohol. Had JAK2 with reflex, MPL done and comes for follow up. [facility] Medical History Hypertension Hand pain, right Elevated hemoglobin Atrial fibrillation Wears glasses Thyroid disease Arthritis DVT (deep venous thrombosis) Restless legs Non-smoker CPAP (continuous positive airway pressure) dependence Sleep apnea Shortness of breath on exertion History of edema History of CHF (congestive heart failure) History of stress test History of echocardiogram Cardiology follow-up encounter History of atrial fibrillation Cataract (lens) fragments in eye following cataract surgery, bilateral Cancer Atrial fibrillation with rapid ventricular response (03/14/22) Hypothyroidism H/O Mohs micrographic surgery for skin cancer Diastolic dysfunction SVT (supraventricular tachycardia) Surgical History History of bilateral carpal tunnel release History of right breast biopsy (~2010) History of D&C History of wisdom tooth extraction Hx of tubal ligation History of arthroplasty of left shoulder S/P lumbar microdiscectomy S/P tonsillectomy History of right knee joint replacement Social History household members: spouse current occupational status: retired Smoking Status: Never smoker alcohol intake: never substance use type: does not use Intake Vital Signs 05/18/25 15:35 06/08/25 15:23 Height 5 ft 4 in 5 ft 4 in Weight: 115.354 kg 115.666 kg BMI 43.6 43.7 BP 131/85 H 145/83 H Blood Pressure Location Rt brachial Rt radial Position Sitting Sitting Respiration 15 18 Pulse 71 62 Pulse Source Monitor Monitor Temp 95.3 F L 98.4 F Temperature Source Temporal Artery Temporal Artery Pulse Oximetry (%) 95 93 Oxygen Delivery Method room air room air Intake Accompanied by: Self Is patient in pain?: No Allergies adhesive Allergy (Verified 06/08/25 15:30) Rash atenolol Allergy (Verified 06/08/25 15:30) NEEDS FOLLOW-UP egg Allergy (Verified 06/08/25 15:30) Rash risedronate sodium (From Actonel) Allergy (Verified 06/08/25 15:30) Swelling Sulfa (Sulfonamide Antibiotics) Allergy (Verified 06/08/25 15:30) Other DISPOSABLE STITCHES Allergy (Uncoded 06/08/25 15:30) Rash Medications ?Medication ?Instructions ?Recorded ?Confirmed ?Type diltiazem HCl 120 mg 120 mg PO DAILY BP 03/12/19 06/08/25 History capsule,extended release 24 hr, controlled (DILT-XR) biotin 5 mg tablet 5 mg PO DAILY hair loss 01/1206/08/25 History levothyroxine 75 mcg tablet 75 mcg PO DAILY thyroid 06/08/25 History (Euthyrox) metoprolol succinate 25 mg 25 mg PO DAILY #30 tabs 06/08/25 Rx tablet,extended release 24 hr calcium 600 mg (as 1 tab PO DAILY 02/17/2405/23 History carbonate)-vitamin D3 5 mcg (200 unit) tablet (Calcium 600 + D(3)) clobetasol 0.05 % scalp solution 1 applic topical MOFR 02/17/24 06/08/25 History spironolactone 25 mg tablet 25 mg PO DAILY 02/17/24 History vitamins A,C,P-tyxt-pptpyn 2,148 1 tab PO BID 02/17/24 06/08/25 History mcg-113 mg-45 mg-17.4 mg tablet (Eye Multivitamin) apixaban 5 mg tablet (Eliquis) 5 mg PO BID 05/08/25 History cholecalciferol (vitamin D3) 50 2,000 unit PO DAILY damon pplement 05/08/25 06/08/25 History mcg (2,000 unit) capsule cyclosporine 0.05 % eye drops in a 1 drp ophthalmic (e ye) 05/08/25 06/08/25 History dropperette (Restasis) furosemide 40 mg tablet 40 mg PO DAILY 05/08/2505/23 History magnesium gluconate 12.5 mg 12.5 mg PO QDAY 05/08/25 0 06/08/25 History magnesium (250 mg) tablet Have you fallen in the past year?: No Central Venous Access Central Venous Access: No Coding Level of Care Code Off vis,est,level 3 Exam Problem Focused Diagnoses Polycythemia D75.1 Assessment and Plan Assessment and Plan (1) Polycythemia: Status: Chronic Comment: JAK2 V617 F is negative, JAK2 exon 12-15 negative, MPL negative. High Carboxyhemoglobin level. Plan: To repeat CBC, CMP, LDH, carboxyhemoglobin level, check iron profile. To obtain US abdomen, CXR. RTC 1 week. Plan Details Follow Up: 1 Week Clinical Quality Measures Falls Risk Screening/Assistive Devices Have you fallen in the past year?: No 06/08/25 1610 <Electronically signed by Rudy Hatch> Date _ [facility] Ortiz MD [facility] Signature: Date (if applicable) CC: Dr. Farnaz Simon MD ~ [facility] Work Phone: 1(963) 561-585006-26-2025 Evaluation note* Diagnosis Onset Date Resolution Status Admit Date Polycythemia chronic May 18, 2 025 3:27pm Polycythemia chronic June 08, 2 025 3:06pm [facility] Work Phone: 1([phone]) 344-767006-26-2025 Progress [facility] [address] [place] [address] OFFICE VISIT Date of Service: 05/18/25 1535 MR#: [id number] Acct: [id number] Name: PARVIZ TRACY Rep #: [id number] : 1950 From: Rudy Ortiz MD Age/Sex: 75/F Location: [facility] [place] Status: Signed HPI Subjective Date of Service 05/18/25 Chief Complaint Referred for evaluation of polycythemia. History of Present Illness 75-year-old woman has had mild polycythemia since 2014. She had JAK2 V6 17F done on 03/18/2023 whichwas negative. Erythropoietin level at that time was 13.8. Recently hemoglobin has been persistentlyabove normal so referred for further evaluation. She denies smoking, drinking alcohol. [facility] Medical History Hypertension Hand pain, right Elevated hemoglobin Atrial fibrillation Wears glasses Thyroid disease Arthritis DVT (deep venous thrombosis) Restless legs Non-smoker CPAP (continuous positive airway pressure) dependence Sleep apnea Shortness of breath on exertion History of edema History of CHF (congestive heart failure) History of stress test History of echocardiogram Cardiology follow-up encounter History of atrial fibrillation Cataract (lens) fragments in eye following cataract surgery, bilateral Cancer Atrial fibrillation with rapid ventricular response (03/14/22) Hypothyroidism H/O Mohs micrographic surgery for skin cancer Diastolic dysfunction SVT (supraventricular tachycardia) Surgical History History of bilateral carpal tunnel release History of right breast biopsy (~2010) History of D&C History of wisdom tooth extraction Hx of tubal ligation History of arthroplasty of left shoulder S/P lumbar microdiscectomy S/P tonsillectomy History of right knee joint replacement Social History household members: spouse current occupational status: retired Smoking Status: Never smoker alcohol intake: never substance use type: does not use ROS Constitutional Constitutional: Reports systems reviewed and no addt'l complaints, except as documented Eyes Eyes: Reports systems reviewed and no addt'l complaints, except as documented ENT HEENT: Reports systems reviewed and no addt'l complaints, except as documented Cardiovascular Cardiovascular: Reports systems reviewed and no addt'l complaints, except as documented Respiratory/Chest Respiratory/Chest: Reports systems reviewed and no addt'l complaints, except as documented Gastrointestinal Gastrointestinal: Reports systems reviewed and no addt'l complaints, except as documented Genitourinary Genitourinary: Reports systems reviewed and no addt'l complaints, except as documented Musculoskeletal Musculoskeletal: Reports systems reviewed and no addt'l complaints, except as documented Integumentary Integumentary: Reports systems reviewed and no addt'l complaints, except as documented Neurologic Neurologic: Reports systems reviewed and no addt'l complaints, except as documented Psychiatric Psychiatric: Reports systems reviewed and no addt'l complaints, except as documented Endocrine Endocrinology: Reports systems reviewed and no addt'l complaints, except as documented Hematologic/Lymphatic Hematologic/Lymphatic: Reports systems reviewed and no addt'l complaints, exceptas documented Allergic/Immunologic Allergic/Immunologic: Reports systems reviewed and no addt'l complaints, except as documented Intake Vital Signs 03/16/24 17:24 05/18/25 15:35 Height 5 ft 4 in 5 ft 4 in Weight: 115.354 kg BMI 43.6 BP 131/85 H Blood Pressure Location Rt brachial Position Sitting Respiration 15 Pulse 71 Pulse Source Monitor Temp 95.3 F L Temperature Source Temporal Artery Pulse Oximetry (%) 95 Oxygen Delivery Method room air Intake Accompanied by: Self Is patient in pain?: No Allergies adhesive Allergy (Verified 05/18/25 15:41) Rash atenolol Allergy (Verified 05/18/25 15:41) NEEDS FOLLOW-UP egg Allergy (Verified 05/18/25 15:41) Rash risedronate sodium (From Actonel) Allergy (Verified 05/18/25 15:41) Swelling Sulfa (Sulfonamide Antibiotics) Allergy (Verified 05/18/25 15:41) Other DISPOSABLE STITCHES Allergy (Uncoded 05/18/25 15:41) Rash Medications ?Medication ?Instructions ?Recorded ?Confirmed ?Type diltiazem HCl 120 mg 120 mg PO DAILY BP 03/12/19 05/18/25 History capsule,extended release 24 hr, controlled (DILT-XR) biotin 5 mg tablet 5 mg PO DAILY hair loss 01/1205/18/25 History levothyroxine 75 mcg tablet 75 mcg PO DAILY thyroid 05/18/25 History (Euthyrox) metoprolol succinate 25 mg 25 mg PO DAILY #30 tabs 05/18/25 Rx tablet,extended release 24 hr calcium 600 mg (as 1 tab PO DAILY 02/17/2404/24 History carbonate)-vitamin D3 5 mcg (200 unit) tablet (Calcium 600 + D(3)) clobetasol 0.05 % scalp solution 1 applic topical MOFR 02/17/24 05/18/25 History spironolactone 25 mg tablet 25 mg PO DAILY 02/17/24 History vitamins A,C,D-dwtl-vtcalb 2,148 1 tab PO BID 02/17/24 05/18/25 History mcg-113 mg-45 mg-17.4 mg tablet (Eye Multivitamin) apixaban 5 mg tablet (Eliquis) 5 mg PO BID 05/08/25 History cholecalciferol (vitamin D3) 50 2,000 unit PO DAILY damon pplement 05/08/25 05/18/25 History mcg (2,000 unit) capsule cyclosporine 0.05 % eye drops in a 1 drp ophthalmic (e ye) 05/08/25 05/18/25 History dropperette (Restasis) furosemide 40 mg tablet 40 mg PO DAILY 05/08/2504/24 History magnesium gluconate 12.5 mg 12.5 mg PO QDAY 05/08/25 0 05/18/25 History magnesium (250 mg) tablet Have you fallen in the past year?: No Central Venous Access Central Venous Access: No Exam Physical Exam Const alert, oriented x3 and no apparent distress HEENT normocephalic, external ears normal and external nose normal Eyes PERRL, EOMs intact bilaterally, conjunctivae normal and no scleral icterus Neck supple Lymph Lymphatic: no lymphadenopathy noted Resp normal respiratory effort and clear to auscultation bilaterally Cardio regular rate, regular rhythm, S1 normal heart sound, S2 normal heart sound and no murmurs GI normal to inspection, nondistended, normoactive bowel sounds no CVA tenderness Back/Spine thoracic and lumbar spine normal to inspection Extremity no clubbing, cyanosis or edema Skin no rashes or lesions noted Neuro oriented x3, CN's II-XII intact bilaterally, moves all extremities and no focal motor deficits Psych mental status grossly normal Coding Level of Care Code Off vis,new,level 3 Exam Problem Focused Diagnoses Polycythemia D75.1 Assessment and Plan Assessment and Plan (1) Polycythemia: Status: Chronic Comment: JAK2 V617 F is negative. Discussed causes of polycythemia, other mutations that can cause polycythemia, carbon monoxide exposure. Patient wants to proceed with with further workup. Plan: To obtain CBC, CMP, LDH, JAK2 exon 12-15, MPL mutation. RTC 3 weeks. Orders: Orders CBC W/Diff, Automated Today D75.1 - Secondary polycythemia Comprehensive Metabolic Profil Today D75.1 - Secondary polycythemia Erythropoietin Today D75.1 - Secondary polycythemia LDH Today D75.1 - Secondary polycythemia Carboxyhemoglobin Order Today D75.1 - Secondary polycythemia [facility] Misc. Today D75.1 - Secondary polycythemia [facility] Misc. 2 Today D75.1 - Secondary polycythemia Plan Details Follow Up: 3 Weeks Clinical Quality Measures Falls Risk Screening/Assistive Devices Have you fallen in the past year?: No 05/18/25 1648 D> Date _ Rudy Ortiz MD Cosigner Signature: Date (if applicable) CC: Dr. Farnaz Simon MD ~ [facility]06-26-2025 Progress note Author Rudy Ortiz [facility] Note Date/Time May 18, 2025 4:48 pm [facility] [address] [address] OFFICE VISIT Date of Service: 05/18/25 1535 MR#: [id number] Acct: [id number] Name: PARVIZ TRACY Rep #: [id number] : 1950 From: Rudy Ortiz MD Age/Sex: 75/F Location: [facility] [place] Status: Signed HPI Subjective Date of Service 05/18/25 Chief Complaint Referred for evaluation of polycythemia. History of Present Illness 75-year-old woman has had mild polycythemia since 2014. She had JAK2 V6 17F done on 03/18/2023 which was negative. Erythropoietin level at that time was 13.8. Recently hemoglobin has been persistently above normal so referred for further evaluation. She denies smoking, drinking alcohol. [facility] Medical History Hypertension Hand pain, right Elevated hemoglobin Atrial fibrillation Wears glasses Thyroid disease Arthritis DVT (deep venous thrombosis) Restless legs Non-smoker CPAP (continuous positive airway pressure) dependence Sleep apnea Shortness of breath on exertion History of edema History of CHF (congestive heart failure) History of stress test History of echocardiogram Cardiology follow-up encounter History of atrial fibrillation Cataract (lens) fragments in eye following cataract surgery, bilateral Cancer Atrial fibrillation with rapid ventricular response (03/14/22) Hypothyroidism H/O Mohs micrographic surgery for skin cancer Diastolic dysfunction SVT (supraventricular tachycardia) Surgical History History of bilateral carpal tunnel release History of right breast biopsy (~2010) History of D&C History of wisdom tooth extraction Hx of tubal ligation History of arthroplasty of left shoulder S/P lumbar microdiscectomy S/P tonsillectomy History of right knee joint replacement Social History household members: spouse current occupational status: retired Smoking Status: Never smoker alcohol intake: never substance use type: does not use ROS Constitutional Constitutional: Reports systems reviewed and no addt'l complaints, except as documented Eyes Eyes: Reports systems reviewed and no addt'l complaints, except as documented ENT HEENT: Reports systems reviewed and no addt'l complaints, except as documented Cardiovascular Cardiovascular: Reports systems reviewed and no addt'l complaints, except as documented Respiratory/Chest Respiratory/Chest: Reports systems reviewed and no addt'l complaints, except as documented Gastrointestinal Gastrointestinal: Reports systems reviewed and no addt'l complaints, except as documented Genitourinary Genitourinary: Reports systems reviewed and no addt'l complaints, except as documented Musculoskeletal Musculoskeletal: Reports systems reviewed and no addt'l complaints, except as documented Integumentary Integumentary: Reports systems reviewed and no addt'l complaints, except as documented Neurologic Neurologic: Reports systems reviewed and no addt'l complaints, except as documented Psychiatric Psychiatric: Reports systems reviewed and no addt'l complaints, except as documented Endocrine Endocrinology: Reports systems reviewed and no addt'l complaints, except as documented Hematologic/Lymphatic Hematologic/Lymphatic: Reports systems reviewed and no addt'l complaints, exceptas documented Allergic/Immunologic Allergic/Immunologic: Reports systems reviewed and no addt'l complaints, except as documented Intake Vital Signs 03/16/24 17:24 05/18/25 15:35 Height 5 ft 4 in 5 ft 4 in Weight: 115.354 kg BMI 43.6 BP 131/85 H Blood Pressure Location Rt brachial Position Sitting Respiration 15 Pulse 71 Pulse Source Monitor Temp 95.3 F L Temperature Source Temporal Artery Pulse Oximetry (%) 95 Oxygen Delivery Method room air Intake Accompanied by: Self Is patient in pain?: No Allergies adhesive Allergy (Verified 05/18/25 15:41) Rash atenolol Allergy (Verified 05/18/25 15:41) NEEDS FOLLOW-UP egg Allergy (Verified 05/18/25 15:41) Rash risedronate sodium (From Actonel) Allergy (Verified 05/18/25 15:41) Swelling Sulfa (Sulfonamide Antibiotics) Allergy (Verified 05/18/25 15:41) Other DISPOSABLE STITCHES Allergy (Uncoded 05/18/25 15:41) Rash Medications ?Medication ?Instructions ?Recorded ?Confirmed ?Type diltiazem HCl 120 mg 120 mg PO DAILY BP 03/12/19 05/18/25 History capsule,extended release 24 hr, controlled (DILT-XR) biotin 5 mg tablet 5 mg PO DAILY hair loss 01/1205/18/25 History levothyroxine 75 mcg tablet 75 mcg PO DAILY thyroid 05/18/25 History (Euthyrox) metoprolol succinate 25 mg 25 mg PO DAILY #30 tabs 05/18/25 Rx tablet,extended release 24 hr calcium 600 mg (as 1 tab PO DAILY 02/17/2404/24 History carbonate)-vitamin D3 5 mcg (200 unit) tablet (Calcium 600 + D(3)) clobetasol 0.05 % scalp solution 1 applic topical MOFR 02/17/24 05/18/25 History spironolactone 25 mg tablet 25 mg PO DAILY 02/17/24 History vitamins A,C,W-rdhm-qgbkcy 2,148 1 tab PO BID 02/17/24 05/18/25 History mcg-113 mg-45 mg-17.4 mg tablet (Eye Multivitamin) apixaban 5 mg tablet (Eliquis) 5 mg PO BID 05/08/25 History cholecalciferol (vitamin D3) 50 2,000 unit PO DAILY damon pplement 05/08/25 05/18/25 History mcg (2,000 unit) capsule cyclosporine 0.05 % eye drops in a 1 drp ophthalmic (e ye) 05/08/25 05/18/25 History dropperette (Restasis) furosemide 40 mg tablet 40 mg PO DAILY 05/08/2504/24 History magnesium gluconate 12.5 mg 12.5 mg PO QDAY 05/08/25 0 05/18/25 History magnesium (250 mg) tablet Have you fallen in the past year?: No Central Venous Access Central Venous Access: No Exam Physical Exam Const alert, oriented x3 and no apparent distress HEENT normocephalic, external ears normal and external nose normal Eyes PERRL, EOMs intact bilaterally, conjunctivae normal and no scleral icterus Neck supple Lymph Lymphatic: no lymphadenopathy noted Resp normal respiratory effort and clear to auscultation bilaterally Cardio regular rate, regular rhythm, S1 normal heart sound, S2 normal heart sound and no murmurs GI normal to inspection, nondistended, normoactive bowel sounds no CVA tenderness Back/Spine thoracic and lumbar spine normal to inspection Extremity no clubbing, cyanosis or edema Skin no rashes or lesions noted Neuro oriented x3, CN's II-XII intact bilaterally, moves all extremities and no focal motor deficits Psych mental status grossly normal Coding Level of Care Code Off vis,new,level 3 Exam Problem Focused Diagnoses Polycythemia D75.1 Assessment and Plan Assessment and Plan (1) Polycythemia: Status: Chronic Comment: JAK2 V617 F is negative. Discussed causes of polycythemia, other mutations that can cause polycythemia, carbon monoxide exposure. Patient wants to proceed with with further workup. Plan: To obtain CBC, CMP, LDH, JAK2 exon 12-15, MPL mutation. RTC 3 weeks. Orders: Orders CBC W/Diff, Automated Today D75.1 - Secondary polycythemia Comprehensive Metabolic Profil Today D75.1 - Secondary polycythemia Erythropoietin Today D75.1 - Secondary polycythemia LDH Today D75.1 - Secondary polycythemia Carboxyhemoglobin Order Today D75.1 - Secondary polycythemia [facility] Misc. Today D75.1 - Secondary polycythemia [facility] Misc. 2 Today D75.1 - Secondary polycythemia Plan Details Follow Up: 3 Weeks Clinical Quality Measures Falls Risk Screening/Assistive Devices Have you fallen in the past year?: No 05/18/25 1648 <Electronically signed by Rudy Hatch> Date _ Rudy Ortiz MD Cosigner Signature: Date (if applicable) CC: Dr. Farnaz Simon MD ~ [facility] Work Phone: 1(445) 586-829404-03-2025 Radiology Diagnostic study note [facility] Services [address] [place], [place] [address] Thyroid MR#: [id number] Acct: [id number] Name: PARVIZ TRACY Rep #: [id number] : 1950 F 75 From: Kimmie Sanchez MD PCP: Dr. Farnaz Simon MD Status: REG CLI Study:Thyroid Date of Exam: 02/22/25 Exam# [id number] Ordering Dr: Karis Cardenas MD PROCEDURE: THYROID 02/22/2025 REASON FOR EXAM: 75-year-old female, THYROID ONE YEAR F/U TECHNIQUE: Thyroid ultrasound COMPARISON: Thyroid ultrasound 02/24/2024. FINDINGS: Right thyroid lobe measures 4.3 x 1.7 x 1.5 cm. Left thyroid lobe measures 3.9 x 1.6 x 1.9 cm. Isthmus thickness is0.3 cm. Thyroid Size: Normal Background Echotexture: Homogeneous Thyroid Nodules: Benign colloid cysts within the bilateral thyroid lobes. Other: Normal lymph node measured within the left mid neck, which is normal in size and demonstrates normal hilar and cortical structure. US/Thyroid IMPRESSION: No suspicious thyroid nodules. Further dedicated follow-up is not indicated by ACR TI-RADS criteria. Reading Location: [facility] CC: Dr. Farnaz Simon MD; Dr. Mikhail Cardenas MD ~ Precipitator: Signed [facility]02-10-2025 History of Present illness Narrative* Ginette Saleh Mammo Tech - 01/02/2025 9:30 AM EST Radiology Service Progress Note PATIENT NAME: Parviz Tracy DATE OF SERVICE: January 02, 2025 TIME: 9:25 AM PATIENT IDENTITY VERIFICATION COMPLETED USING TWO (2) IDENTIFIERS: Name and Date of confirmedby patient verbally. FALL SCREENING: Has the patient had 2 falls in the last year or 1 fall with injury or currently using an Ambulatory Assistive Device (Walker, Cane, Wheelchair, Crutches, etc.)? No PATIENT GENDER DATA: Assigned female at . status: : No status:NO. PATIENT RELEVANT IMPLANT DATA REVIEWED: Not Applicable PATIENT PRESENTS WITH AN IMPLANTABLE OR ATTACHED CUTTING MACHINE FIXER: No RADIOLOGY DEPARTMENT: Mammography PERIPHERAL IV DATA: Not applicable SIGNED BY: Sonal Mar January 02, 2025 9:25 AM documented in this [facility]The [facility]02-[facility]-2025 NoteHNO ID: [id number] Author: GINETTE SALEH Mammo Tech Service: ? Author Type: Yarn Man Type: Progress Notes Filed: 01/02/2025 09:25 Note Text: Radiology Service Progress Note PATIENT NAME: Parviz Tracy DATE OF SERVICE: January 02, 2025 TIME: 9:25 AM PATIENT IDENTITY VERIFICATION COMPLETED USING TWO (2) IDENTIFIERS: Name and Date of confirmed by patient verbally. FALL SCREENING: Has the patient had 2 falls in the last year or 1 fall with injury or currently using an Ambulatory Assistive Device (Walker, Cane, Wheelchair, Crutches, etc.)? No PATIENT GENDER DATA: Assigned female at . status: : No status: NO. PATIENT RELEVANT IMPLANT DATA REVIEWED: Not Applicable PATIENT PRESENTS WITH AN IMPLANTABLE OR ATTACHED CUTTING MACHINE FIXER: No RADIOLOGY DEPARTMENT: Mammography PERIPHERAL IV DATA: Not applicable SIGNED BY: Ginette Saleh [employer] January 02, 2025 9:25 [facility]11-27-2024 NoteHNO ID: [id number] Author: ROBERT GARSIA MD Service: ? Author Type: Physician Type: Progress Notes Filed: 10/19/2024 09:20 Note Text: Parviz is a 74 year old who presents for an annual gynecologic exam without complaints. Postmenopausal: yes OB History T2 L2 SAB0 IAB1 Ectopic0 Multiple0 Live Births0 Comment: NORMAL VAGINAL DELIVERY X2. 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 Hill DILATION AND CURETTAGE DXAND/THER NONOBSTETRIC Dilation AND curettage, X-2 MOHS MICROGRAPHIC H/N/H/F/G EACH ADDL STAGE On left side of face- right arm OPEN REPAIR OF ROTATOR CUFF ACUTE Rotator cuff repair PAST SURGICAL HISTORY OF [place] teeth extracted PAST SURGICAL HISTORY OF 08/23/2006 Back Surgery, Disc REMV CATARACT EXTRACAP,INSERT LENS Bilateral GAYLA RECONST SHOULDER JOINT Right SALPINGECTOMY BILATERAL, PARTIAL TONSILLECTOMY PRIMARY/SECONDARY TOTAL KNEE REPLACEMENT Right 08/08/2020 FAMILY HISTORY Problem Relation Age of Onset Arthritis Mother Osteoporosis Mother Blindness Mother glaucoma Prostate Cancer Father Colon Cancer Father small cell other (polycythemia) Sister other (oral cancer) Brother toungue Parkinson?s Disease Brother Osteoporosis Maternal Grandmother Cancer Paternal Grandmother SKIN CANCER ON BACK Hypertension Other STRONG FAMILY HISTORY other (HEART DISEASE) Other STRONG FAMILY HISTORY Diabetes Other STRONG FAMILY HISTORY, Maternal other (Blood Clots) Other Maternal side of family SOCIAL HISTORY Social History Tobacco Use Smoking status: Never Smokeless tobacco: Never Vaping Use Vaping status: Never Used Substance Use Topics Alcohol use: No Drug use: No REVIEW OF SYSTEMS Abdomen: No abdominal pain, nausea, vomiting, diarrhea, or constipation. No bloating, early satiety, indigestion, or increased flatulence. Bladder: No dysuria, gross hematuria, urinary frequency, urinary urgency, or incontinence Breast: No breast lumps, nipple d/c, overlying skin changes, redness or skin retraction Allergies and current medication updated:Yes SENSITIVE EXAM: The sensitive examination was discussed with the Patient or Patient's Authorized Adult Manager. As applicable, any other physician, advance practice provider, medical student, or other health professional student that will be observing or involved in the sensitive examination for educational or training purposes was discussed with the Patient or Authorized Adult Manager. The Patient or Authorized Adult Manager has agreed to proceed with the sensitive examination. (Sensitive examination includes inspection and/or palpation of the breasts, pelvis, prostate and anorectal regions). EXAM: BP 128/82 Ht 5' 4.25 (1.63m) Wt 250 lb (113.4kg) BMI 42.58 kg/(m2). GENERAL: pleasant, female in no apparent distress BREAST: soft, non-tender, symmetric, no dominant mass, normal nipple-areolar complex, no lymphadenopathy, and no nipple discharge CHEST: Normal inspiratory effort ABDOMEN: soft, non-tender, and no masses PELVIC: external genitalia normal, normal Bartholin's glands, urethra, [place]'s glands, no vulvar lesions, no cervical lesions, good vaginal support, physiologic discharge present, normal appearing perineal body and perianal region BIMANUAL: uterus normal size, shape and consistency, no adnexal masses, and non-tender RECTOVAGINAL: deferred. NEURO: alert and oriented x3,exam grossly non-focal EXTREMITIES: normal ASSESSMENT/PLAN: 1) Health maintenance: Pap/HPV screening no longer needed Mammogram ordered Colon cancer screening: up to date with screening 2) Follow up one year or sooner as needed Robert Garsia [facility]11-27-2024 History of Present illness Narrative* Robert Garsia MD - 10/19/2024 8:36 AM EST Parviz is a 74 year old who presents for an annual gynecologic exam without complaints. Postmenopausal: yes OB History T2 L2 SAB0 IAB1 Ectopic0 Multiple0 Live Births0 Comment: NORMAL VAGINAL DELIVERY X2. Rotary Drill Operator History LMP: Postmenopausal Age at Menarche: Age at First : Age at Menopause: Rotary Drill Operator History Comments: Sexual Activity: Yes; Male Contraception: No contraception data on record PAST MEDICAL HISTORY Diagnosis Date A-fib (HCC) Backache, unspecified Benign shuddering attacks Carpal tunnel syndrome Diastolic dysfunction DVT of leg (deep venous thrombosis) (HCC) 02/2019 Heart failure (HCC) Insomnia Macular degeneration Melanoma of right upper arm (HCC) 01/2020 [...] Rotator cuff repair PAST SURGICAL HISTORY OF [place] teeth extracted PAST SURGICAL HISTORY OF 08/23/2006 Back Surgery, Disc REMV CATARACT EXTRACAP,INSERT LENS Bilateral GAYLA RECONST SHOULDER JOINT Right SALPINGECTOMY BILATERAL, PARTIAL TONSILLECTOMY PRIMARY/SECONDARY <AGE 12 TOTAL KNEE REPLACEMENT Right 08/08/2020 FAMILY HISTORY Problem Relation Age of Onset Arthritis Mother Osteoporosis Mother Blindness Mother glaucoma Prostate Cancer Father Colon Cancer Father small cell other (polycythemia) Sister other (oral cancer) Brother toungue Parkinson s Disease Brother Osteoporosis Maternal Grandmother Cancer Paternal Grandmother SKIN CANCER ON BACK Hypertension Other STRONG FAMILY HISTORY other (HEART DISEASE) Other STRONG FAMILY HISTORY Diabetes Other STRONG FAMILY HISTORY, Maternal other (Blood Clots) Other Maternal side of family SOCIAL HISTORY Social History Tobacco Use Smoking status: Never Smokeless tobacco: Never Vaping Use Vaping status: Never Used Substance Use Topics Alcohol use: No Drug use: No REVIEW OF SYSTEMS Abdomen: No abdominal pain, nausea, vomiting, diarrhea, or constipation. No bloating, early satiety, indigestion, or increased flatulence. Bladder: No dysuria, gross hematuria, urinary frequency, urinary urgency, or incontinence Breast: No breast lumps, nipple d/c, overlying skin changes, redness or skin retraction Allergies and current medication updated:Yes SENSITIVE EXAM: The sensitive examination was discussed with the Patient or Patient's Authorized Adult Manager. As applicable, any other physician, advance practice provider, medical student, or other health professional student that will be observing or involved in the sensitive examination for educational or training purposes was discussed with the Patient or Authorized Adult Manager. The Patient or Authorized Adult Manager has agreed to proceed with the sensitive examination. (Sensitive examination includes inspection and/or palpation of the breasts, pelvis, prostate and anorectal regions). EXAM: BP 128/82 Ht 5' 4.25 (1.63m) Wt 250 lb (113.4kg) BMI 42.58 kg/(m^2). GENERAL: pleasant, female in no apparent distress BREAST: soft, non-tender, symmetric, no dominant mass, normal nipple-areolar complex, no lymphadenopathy, and no nipple discharge CHEST: Normal inspiratory effort ABDOMEN: soft, non-tender, and no masses PELVIC: external genitalia normal, normal Bartholin's glands, urethra, [place]'s glands, no vulvar lesions, no cervical lesions, good vaginal support, physiologic discharge present, normal appearing perineal body and perianal region BIMANUAL: uterus normal size, shape and consistency, no adnexal masses, and non-tender RECTOVAGINAL: deferred. NEURO: alert and oriented x3,exam grossly non-focal EXTREMITIES: normal ASSESSMENT/PLAN: 1) Health maintenance: Pap/HPV screening no longer needed Mammogram ordered Colon cancer screening: up to date with screening 2) Follow up one year or sooner as needed Robert Garsia MD [facility] Discharge summary Author Jeramy Agrawal [facility] March 17, 2024 9:50am Note Date/Time March 17, 2024 9:4 4am [facility] [place] [facility] Medical Records Department [address] [place] [address] Instructions for Home/Discharge Instructions 03/17/24 0943 MR#: [id number] Acct: [id number] Name: PARVIZ TRACY Rep #:[id number] : 1950 74 From: Jeramy PRITCHARD PA-C PCP: Dr. Farnaz Simon MD Status :ADM DANA Discharge Instructions Diet Discharge Diet: No restrictions Activity Discharge Activity: May Not Drive (No driving for 6 weeks postoperatively. Mustalso be off all narcotics at 6 weeks for driving.) May shower in (days): 1 (Dressing must be intact to skin. Turn dressing away from water.) Ice area for (Minutes): 20 (Every 1-2 hours while awake. Please place barrier between skin and ice pack.) Weight Bearing Status: No weight bearing (Postoperative upper extremity) Additional Activity Instructions:: Continue with UltraSling at all times. Please come out of UltraSling 3 times daily working on elbow range of motion andpendulum exercises. No range of motion of postoperative shoulder. Will begin outpatient physical therapy after 2-week scheduled follow-up. Dressing / Incision Call your doctor if your incision/area has: Continuous Slow Oozing, Sudden Increased Bleeding, Increased Pain/ Swelling, Increased Redness and Foul Smelling Discharge Call your doctor if you observe: Fever of 101 or Higher, Shortness of breath, Chest pain and Uncontrolled pain Remove Dressing in: 4 days (Okay to remove dressing on March 21, 2024) Additional Dressing/Incision Instructions:: Follow [facility] Post-op Instructions. Once postoperative dressing has been removed only use gentle soap and water overthe incision. Do not use any ointments, Neosporin, salves, alcohol pads over the incision for 6 weeks postoperatively. Do not submerge underwater for 6 weeks postoperatively. Do NOT use alcohol with narcotic pain medication. Do NOT make important decisions while taking narcotic medication. If you have problems with taking your medication (rash, itching, nausea, etc.) call the office at once. Follow Up Care Test Results: Test results from this visit will be discussed in further detail at your follow- up appointment, if applicable. Discharge Plan Admission Admit Date/Time: 03/16/24 14:45 Attending Provider: Dat Mata Primary Care Provider: Farnaz Simon Consulting Providers: Abrahan Silver; Saritha Sandoval Discharge Orders/Prescriptions Prescriptions: New acetaminophen 500 mg Tablet 1,000 mg PO TID Qty: 0 0RF Rx Instructions: Do not take more than 3000 mg Tylenol in a 24-hour period. doxycycline monohydrate 100 mg Capsule 100 mg PO BID 14 Days Qty: 28 0RF Rx Instructions: Take for 2 weeks postoperatively oxycodone 5 mg Tablet 5 - 10 mg PO Q4H PRN PRN (Reason: as needed or pain) 7 Days Qty: 42 0RF sennosides-docusate sodium [Stool Softener-Stimulant Laxat] 8.6-50 mg Tablet 2 tab PO BID 3 Days Qty: 12 0RF Rx Instructions: Take until first bowel movement, then as needed Continued L.acid,para-B.bifidum-S.therm 8 billion cell capsule 1 cap PO DAILY diltiazem HCl [DILT-XR] 120 capsule,ext.rel 24h degradable 120 mg PO DAILY warfarin 4 MG tablet 4 mg PO DAILY furosemide 20 MG tablet 40 mg PO DAILY biotin 5 MG tablet 5 mg PO DAILY cholecalciferol (vitamin D3) 2,000 UNIT capsule 1,000 unit PO DAILY magnesium oxide 400 MG tablet 250 mg PO DAILY levothyroxine [Euthyrox] 75 mcg tablet 75 mcg PO DAILY Patient Comments: TAKE 1 TABLET BY MOUTH ONCE DAILY metoprolol succinate 25 mg tablet extended release 24 hr 25 mg PO DAILY Qty: 30 0RF spironolactone 25 mg tablet 25 mg PO DAILY clobetasol 0.05 % solution 1 applic TOPICAL MOFR Patient Comments: APPLY TO THE SCALP ONCE DAILY FOR 3 WEEKS, THEN TWICE WEEKLY NEEDED FOR MAINTENANCE calcium carbonate-vitamin D3 [Calcium 600 + D(3)] 600 mg-5 mcg (200 unit) tablet 1 tab PO DAILY carboxymethylcellulose sodium [Lubricant Eye Drops] 0.5 % drops 1 drp EACH EYE DAILY Eye Multivitamin 2,148 mcg-113 mg-45 mg-17.4mg tablet 1 tab PO BID Rx Instructions: administer with AM and PM meals Other Ambulatory Orders: 12 Lead EKG (Routine) Timeframe: 20240219 Location: None Selected Ordered By: Dr. Dat Mata Referrals / Follow Up: Physical,Therapy [Other] - 03/31/24 9:00 am Farnaz Simon MD [Primary Care Provider] - Jeramy Agrawal PA-C [Med Staff - [facility]] - 04/01/24 9:00 am Disposition Disposition (needs filled in before D/C Order can be placed): Home, Self Care 03/17/24 0950<Electronically signed by Jeramy PRITCHARD PA-C>Jeramy PRITCHARD PA-C CC: Dr. Farnaz Simon MD; Dr. Abrahan Silver DO; Dr. Saritha Sandoval DO ~ Signed [facility] Work Phone: 1(761) 989-341404-25-2024 Progress note Author Jeramy [facility] March 17, 2024 9:43am Note Date/Time March 17, 2024 9:[address] [facility] Medical Records Department [address] [place] [id number] Progress Note - Orthopedic 03/17/24932 MR#: [id number] Acct: [id number] Name: PARVIZ TRACY Rep #:[id number] : 1950 74 From: Jeramy PRITCHARD PA-C PCP: Dr. Farnaz Simon MD Status :ADM DANA Location: MS3 RL003-4 Subjective Subjective The patient was sitting in bedside chair eating upon examination. Patient denies any chest pain, shortness of breath, dizziness, lightheadedness, nausea or vomiting, or calf pain. Patient states she struggled yesterday with just notfeeling well and pain. She feels the block is worn off. Medications are helpful. Patient does have sleep apnea which she uses a CPAP. She is currentlyon room air. She has been working on the incentive spirometer. She denies any numbness and tingling in the right upper extremity. Therapy has already worked with patient today. She is wishing to go home today. Objective Data Objective Data Vital Signs: Vital Signs Temp Pulse Resp BP Pulse Ox O2 Del Method O2 Flow Rate 97.9 F 75 18 129/76 H 97 Room Air 4 03/17/24 09:13 03/17/24 09:13 03/17/24 09:13 03/17/24 09:13 03/17/24 09:13 03/17/24 09:13 03/17/24 08:07 Oxygen Flow Rate (L/min) 4 Oxygen Delivery Method Room Air Weight: 112.9 kg Body Mass Index (BMI) 42.7 Intake & Output: Intake and Output for Last 24 Hours 03/15/24 03/16/24 03/17/24 23:59 23:59 23:59 Intake Total 2184.08 / 2184.08 50 / 50 Output Total 1000 / 1000 Balance 2184.08 / 2184.08 -950 / -950 Lab / Micro Data 03/17/24 05:51 03/17/24 05:51 Labs: Laboratory Results - last 24 hr 03/16/24 09:17: PT 14.3, INR 1.1 03/16/24 09:24: POC Glucose 76 03/17/24 05:51: WBC 15.2 H, RBC 5.07, Hgb 15.6 H, Hct 47.0, MCV 92.7, MCH 30.8, MCHC 33.2, RDW Std Deviation 47.8 H, RDW Coeff of Gallo 14.1, Plt Count 263, MPV 9.7, PT 14.9, INR 1.2, Sodium 139, Potassium 3.7, Chloride 106, Carbon Dioxide 25.0, Anion Gap 8, BUN 11, Creatinine 0.78, Estim Creat Clear Calc 78.25, Est GFR (MDRD) Af Amer 94, Est GFR (MDRD) Non-Af 78, BUN/Creatinine Ratio 14.2, Glucose 139 H, Calcium 9.0 Micro: Microbiology 02/19/24 08:35 Swab (Method) Nasal Screen MRSA/MSSA - Final Radiography Diagnostic Testing: Radiology Impression Shoulder X-Ray 03/16/24 14:30 IMPRESSION: The patient is status post reverse shoulder replacement. There is good alignment. Postoperative soft tissue changes. Electronically Signed: Bashir Crenshaw MD at 14:44 EDT , Physical Exam Narrative Vital signs stable, afebrile Dressing is clean, dry, intact Ultra-sling fitting appropriately Sensation intact to axillary, radial, median, and ulnar distribution Motor intact to AIN, PIN, and ulnar nerve Const alert, oriented x3 and no apparent distress Assessment & Plan Assessment/Plan (1) Status post reverse total arthroplasty of right shoulder: PLAN: 1. S/P right reverse total shoulder arthroplasty POD #1 2. Continue Pain Medications: Tylenol and oxycodone. We are unable to use nonsteroidal anti-inflammatories due to Coumadin treatment 3. DVT Prophylaxis: Patient will resume her Coumadin today. She is on Coumadindue to history of DVTs. Patient was advised to make sure she is reaching out with her primary care provider who is managing so that she can get appropriate postoperative INR checks. She is advised to contact our office if having any complications with the right upper extremity. 4. PT/OT: Continue with UltraSling at all times except to come out for range ofmotion exercises of the elbow and pendulum exercise 3 times daily. No range of motion of the postoperative shoulder until outpatient physical therapy begins. Outpatient physical therapy will begin 2 weeks postoperatively after follow-up with [facility] with x-rays and incision check. 5. H & H: 15.6/47.0, asymptomatic. Stable and no need for further treatment. Patient is asymptomatic 6. Reactive leukocytosis: 15.2, Afebrile. Patient did receive Decadron intraoperatively. No clinical signs of infection. 7. Currently on doxycycline for 2 weeks postoperatively due to elevated BMI greater than 40.0. I discussed with the patient potential side effects of doxycycline including sensitivity to the sunlight and increased risk of skin burn. Recommend patient take appropriate precautions. Also recommend patient to take probiotic while on the antibiotic. Patient voiced understanding agreement. 8. Continue postoperative medical management per medicine: Case was discussed with medicine 9. Encouraged Incentive Spirometry: Patient does have history of sleep apnea and uses CPAP. Encouraged that she is using this postoperatively every night. Also recommended the incentive spirometer every hour while awake. 10. Disposition: Plan will be for discharge home today. Patient appears to be orthopedically stable and labs appropriate for discharge. Her pain has been controlled on medications. She would like her prescriptions E scribed to [facility]. We discussed all medications in great detail. She will follow-up per postoperative instructions. We did discuss her postoperativedressing in which she will remove 5 days postoperatively. She does have some tape allergy and if there are any complications from the dressing or Steri-Strips she will contact her office immediately. I have reviewed the [place] Automated Rx Reporting System (OARRS) report for this patient for refill pattern and other prescriber involvement as part of the appropriate surveillance for the provision of acute and chronic controlled medications. The report was requested and reviewed on the date of this entry and was considered in the prescribing process. This dictation was created using voice recognition software. Phonetic and/or grammatical errors may exist. 03/17/24 0943 <Electronically signed by Jeramy PRITCHARD PA-C> Cosigner Signature (if applicable): CC: ~ Signed [facility] Work Phone: 1(377) 127-661304-24-2024 Progress note Author Abrahan Silver [facility] March 16, 2024 5:23pm Note Date/Time March 16, 2024 5:2 3pm [facility] Medical Records Department [address] [place] [id number] Progress Note - Hospitalist 03/16/24 1719 MR#: [id number] Acct: [id number] Name: PARVIZ TRACY Rep #:[id number] : 1950 74 From: Abrahan Silver DO PCP: Dr. Farnaz Simon MD Status :ADM DANA Location: [facility]-0 Reason for Visit Reason for Visit: Diagnoses Primary osteoarthritis, right shoulder (03/16/24) Encounter for other preprocedural examination (03/16/24) long term care administrator (current) use of anticoagulants (03/16/24) Other intermediate accountant (current) drug therapy (03/16/24) Subjective Subjective Consult requested by Dr. Mata for postoperative medical management. Patient feeling slightly groggy today but otherwise okay. Denies any significant pain in her right arm at present. Objective Data Objective Data Vital Signs: Vital Signs Temp Pulse Resp BP Pulse Ox O2 Del Method O2 Flow Rate 36.3 C L 68 18 130/68 H 96 Nasal Cannula 4 03/16/24 16:24 03/16/24 16:24 03/16/24 16:24 03/16/24 16:24 03/16/24 16:24 03/16/24 16:24 03/16/24 16:24 Oxygen Flow Rate (L/min) 4 Oxygen Delivery Method Nasal Cannula Weight: 112.9 kg Body Mass Index (BMI) 42.7 Intake & Output: Intake and Output for Last 24 Hours 03/14/24 03/15/24 03/16/24 23:59 23:59 23:59 Intake Total 2134.08 / 2134.08 Balance 2134.08 / 2134.08 Lab / Micro Data 02/19/24 08:35 02/19/24 08:35 Labs: Laboratory Results - last 24 hr 03/16/24 08:53: POC PT 21.3 H, INR 2.0 03/16/24 09:17: PT 14.3, INR 1.1 03/16/24 09:24: POC Glucose 76 Micro: Microbiology 02/19/24 08:35 Swab (Method) Nasal Screen MRSA/MSSA - Final Radiography Diagnostic Testing: Radiology Impression Shoulder X-Ray 03/16/24 14:30 IMPRESSION: The patient is status post reverse shoulder replacement. There is good alignment. Postoperative soft tissue changes. Electronically Signed: Bashir Crenshaw MD at 14:44 EDT , Physical Exam Const alert and no apparent distress HEENT head/scalp atraumatic and moist oral mucous membranes Resp normal respiratory effort, no retractions, no use of accessory muscles and clearto auscultation bilaterally Cardio regular rate, regular rhythm, S1 normal heart sound and S2 normal heart sound Extremity Extremity Narrative: Right arm in immobilizer. Assessment & Plan Assessment/Plan (1) Atrial fibrillation: PLAN: Plan Atrial fibrillation * Currently rate controlled * Continue with diltiazem and warfarin * Monitor INR Status post right reverse total shoulder replacement * Management per orthopedics * On VTE prophylaxis with aspirin twice daily. Would discontinue that once the INR is therapeutic at 2 or greater. Hypothyroidism: Continue with levothyroxine Thank you for the consult. The hospitalist service will follow along during thehospitalization. Charges/Coding Visit Charges Inpatient E&M: 56999 Subs Hosp L2 03/16/24 1723 <Electronically signed by Abrahan Silver DO> Cosigner Signature (if applicable): CC: ~ Signed [facility] Work Phone: 1(825) 877-907004-24-2024 History and physical note Author Dat Mata [facility] March 16, 2024 11:20am Note Date/Time March 07, 2024 12: 58pm [facility] [place] [facility] Medical Records Department [address] [place] [address] History & Physical Exam 03/07/24 1257 MR#: [id number] Acct: [id number] Name: PARVIZ TRACY Rep #:[id number] : 1950 74 From: Jeramy PRITCHARD PA-C PCP: Dr. Farnaz Simon MD Status :[facility] Location: [place] [address] History and Physical History and Physical? Patient Name: Parviz Tracy : 1950 From:? JERAMY AGRAWAL PA-C? DATE OF PRE-OPERATIVE EXAM: 03/07/2024 DATE OF SURGERY:? 03/16/2024 SCHEDULED PROCEDURE:? Reverse right total shoulder arthroplasty HISTORY OF PRESENT ILLNESS: Preoperative history and physical exam was performed on March 07, 2024.? This kobe 74-year-old female who has been having ongoing bilateral shoulder pain for over 6 years.? She was being treated conservatively.? She is right-hand dominant.? Her pain is diffusely throughout the right shoulder.? She has difficulty with activities of daily living that require any overhead use or reaching behind her body.? She has difficulty getting dressed and undressing herself due to the pain.? Also difficulty with regular hygiene activities such as washing her hair.? 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 There is been no trauma or injury.? She has attempted previous conservative measures including Tylenol, carpal take care, and massive therapy.? She denies any numbness and tingling in the bilateral upper extremities.? Patient has medical history pertinent for supraventricular tachycardia, history of multiple blood clots in the past currently on Coumadin, sleep apnea, degenerative disc disease, history of atrial fibrillation, hypothyroid, congestive heart failure, macular degeneration.? She denies any recent chest pain, shortness of breath, fevers chills or recent infections.? After failing conservative measures and discussing all treatment options with Dr. Dat Mata, the patient does wish to proceed with a right reverse total shoulder arthroplasty.? We have obtain surgical clearance from the primary care provider Dr. Simon and brim ironer hand Dr. Brand. REVIEW OF SYSTEMS: Review Of Systems: Constitutional: Reports difficulty sleeping, but denies anorexia, change in appetite, fever and weight change. Cardiovasular: Denies chest pain, heart murmur, irregular heartbeat and peripheral vascular disease. Respiratory: Reports sleep apnea and shortness of breath, but denies asthma, cough, pneumonia, tuberculosis and wheezing. Gastrointestinal: Reports diarrhea, but denies constipation, heartburn, nausea, rectal itching, bloody stools and vomiting. Genitourinary: Denies incontinence. Musculoskeletal: Reports trouble walking and weakness, but denies leg swelling and pain. Skin: Reports history of shingles, but denies Raynaud's and tattoo. Neurological: Reports numbness/tingling and tremor but denies ambulatory dysfunction and dizziness. Psychiatric: Reports insomnia, but denies anxiety, depression, mental illness and stress. Hematologic/Lymphatic: Denies anemia, bleeding/bruising tendency and past transfusion. Reviewed, no changes. PAST MEDICAL HISTORY: Advance Care Plan: Other Directive, living will Effective Date: 12/13/2020 Other Directive, POA Effective Date: 08/22/2022 Past Medical History: Medical Problems: Melanoma, Vocal Chord Disfunction, Superventricular Tachycardia, Diastolic Disfuntion, Blood Clots Sleep Apnea - Central? Degenerative Disc Disease, Osteopenia, Basal Cell Carcinoma Covid-19 Vaccine - 01/23/21 & 02/20/21 Hypothyroidism, Afib, Squamous Cell Carcenoma, Alopecia, Gum Disease, CongestiveHeart Failure (CHF), Dry macular degeneration Accidents: None Surgical Hx: Tonsillectomy, [place] Teeth, D & C, Tubal Ligation Shoulder Arthroscopy LT - ROTATOR CUFF SURGERY - DR BETANCUR @[facility] Lumbar Micro Surgery? Bulging Disc - DR ROBERTO RICKETTS @ [facility] Moh's Surgery - FOR BASAL CELL, SKIN CA @ [facility] Moh's Surgery - FOR MELANOMA (TWICE) Lumpectomy - (2010) RT BREAST RT TKR - (08/08/2020) SAW @ [facility] Cataracts - BILAT Left Carpal Tunnel Release - (07/25/2022) SAW @ [facility] Right Carpal Tunnel Release - (08/08/2022) DR. MATA @ [facility] Biopsy on thyroid - (04/05/2023) [facility] Anesthesia Complications: Vomiting, Nausea, Hypotension, Trouble Waking Up Assistive Devices: Cpap Reviewed, no changes. SOCIAL HISTORY: Social History: Marital: .Occupation: Retired.Work Status: Retired.Hand Dominance: Right-handed. Personal Habits:? Cigarette Use: Never Smoked Cigarettes.Smokeless Tobacco: Never Used Smokeless Tobacco.E-Cigarette Use: Never used.Alcohol: Denies use.Drug Use: Denies Use.Enjoy Exercising: Exercises 1-3 x/month. Reviewed, no changes. VITALS: Ht: 64.1 Wt: 249lb Wt k.946 BMI: 42.6 BP: 118/72 Pulse: 70 Resp: 15 T: 97.2 T: 36.2C Pain Level: 7 O2SatR: 95 ALLERGIES: Sulfa - Rash Atenolol Adhesives Disposable Stitches - chromic gut and monocryl? MEDICATIONS: Amoxicillin 500 mg 4 tablets one hour prior to procedure, Biotin 5000 mcg 1po tid, Warfarin Sodium 4 mg 1 by mouth every day, Furosemide 20 mg 1po bid, Magnesium 250 mg 1po qday, Vitamin D3? 1po qday, Diltiazem HCL 120 mg 1-2 day, Metoprolol Succinate ER 25 mg 1 by mouth every day, Euthyrox 75 mcg 1 by mouth every day, Clobetasol Propionate 0.05 % apply twice daily for up to 2 weeks to the affected areas on the ... (refer to, Calcium + D? 1po qday, Probiotic? 1po qday, Spironolactone 25 mg 1 by mouth every day PRE-OP EXAM:? General appearance:NORMAL? ? ? Other: Eyes: Conjunctivae and lids: NORMAL? Pupils: ERR Ears, Nose, Mouth, and Throat: NORMAL? Other: Inspection of lips, teeth and gums: NORMAL? ?Other: Neck: Examination of neck: no masses noted. Respiratory: Assessment of respiratory effort: NORMAL? ?Other: ?Auscultation of lungs: clear to auscultation no wheezes, rhonchi or rales. Cardiovascular:? Auscultation of heart: regular rate and rhythm, no murmurs, gallops or rubs. PHYSICAL EXAMINATION: On exam of the right shoulder she has tenderness to palpation over the anterior and lateral shoulder.? She has difficulty reaching behind her body with internalrotation to right buttock, Rotation 40, and Forward Elevation Actively 90.? She Has Pain Associated with All Range Of Motion.? Sensation Intact to Light Touch. IMAGING STUDIES: Previous x-rays of the right shoulder reveal severe [id number] glenohumeral joint space narrowing, subchondral sclerosis, osteophyte formation consistent with severe stage IV glenohumeral osteoarthritis. IMPRESSION: 1.? Severe right shoulder glenohumeral osteoarthritis 2.? Congestive heart failure 3.? Sleep apnea 4.? History of DVTs: Currently on Coumadin 5.? History of melanoma 6.? Vocal cord dysfunction 7.? Supraventricular tachycardia 8.? Degenerative disc disease 9.? Hypothyroidism 10.? Macular degeneration 11.? Morbid obesity with BMI 42.6 PLAN: Dr. Dat Mata did discuss and review with the patient all treatment options including surgical versus nonsurgical options.? Patient does wish to proceed with the above-stated procedure.? Potential risks, benefits, and complications of the procedure were discussed in detail including but not limited to , infection, nerve and blood vessel damage, persistent pain, numbness, tingling, paresthesias, blood clot, pulmonary embolism, and requirement for possible further surgery.? The patient expressed full understanding and has no further questions for the doctor.? Patient does agree to proceed with the above-stated procedure and has signed the surgery consent form. POST-OP MEDICATION PLAN: Pain Medications: Postoperative pain regimen will be initiated by Dr. Dat Mata in the hospital.? She has been instructed by the primary care provider and brim ironer hand to stop the Coumadin 5 days prior to surgery.? This will be resumed on postoperative day #1.? I also advised the patient that she must have planned set forth with her primary care physician for INR checks postoperatively. DVT Prophylaxis: Patient will resume Coumadin postoperatively on day 1 This dictation was created using voice recognition software. Phonetic and/or grammatical errors may exist. ___? I have re-examined the patient.? There are no clinical changes since date of exam. ___? See progress notes for changes. ___? Dictated on admission Date: ? ? ?Time: Signature: 03/07/24 1258 <Electronically signed by Jeramy PRITCHARD PA-C> Cosigner Signature (if applicable): CC: KIRSTIE Agrawal; Dr. Farnaz Simon MD; Dr. Dat Mata MD~ Signed ADDENDUM by Dr. Dat Mata MD on 03/16/24 at 1120 Addendum I have examined the patient the following changes are noted: INR today 1.1. Will proceed with surgery. 03/16/24 1120<Electronically signed by Dat Mata MD> Cosigner Signature (if applicable): cc: KIRSTIE Agrawal; Dr. Farnaz Simon MD; Dr. Dat Mata MD ~* Signed [facility] Work Phone: [phone]) 522-578704-24-2024 Procedure [facility] 01-01-2024 Miscellaneous Notes* Letter - Coordinator, Mammography - 01/01/2024 7:44 AM EST January 01, 2024 PID: [id number] Parviz Tracy [address] [place] [id number] Dear Ms. Tracy, We are pleased to inform you that the results of your recent breast imaging exam on 12/31/2023 are normal. Early detection of cancer is very important. We also understand recommendations regarding breast cancer screening are controversial. Please discuss with your primary care provider which strategy is best for you and whether a mammogram is right for you. Your imaging studies and report will be kept on file at [facility] as part of your permanent medical record and are available for your continuing care. Thank you for allowing us to help in meeting your health care needs. Sincerely, Dr. Maier Interpreting Radiologist [facility] (Normal over 40) [facility] History of Present illness Narrative* Ginette Saleh Mammo Jackelyn - 12/31/2023 9:30 AM EST Radiology Service Progress Note PATIENT NAME: Parviz Tracy DATE OF SERVICE: December 31, 2023 TIME: 9:29 AM PATIENT IDENTITY VERIFICATION COMPLETED USING TWO (2) IDENTIFIERS: Name and Date of confirmedby patient verbally. FALL SCREENING: Has the patient had 2 falls in the last year or 1 fall with injury or currently using an Ambulatory Assistive Device (Walker, Cane, Wheelchair, Crutches, etc.)? No PATIENT GENDER DATA: Female. status: : No status: NO. PATIENT RELEVANT IMPLANT DATA REVIEWED: Not Applicable PATIENT PRESENTS WITH AN IMPLANTABLE OR ATTACHED CUTTING MACHINE FIXER: No RADIOLOGY DEPARTMENT: Mammography PERIPHERAL IV DATA: Not applicable SIGNED BY: Soledad Maro Jackelyn December 31, 2023 9:29 AM documented in this encounterThe [facility]03-28-[facility]22 History of Present illness Narrative* Sarah Antonio, RT(R) - 02/17/2022 9:10 AM EDT Radiology Service Progress Note PATIENT NAME: Parviz Tracy DATE OF SERVICE: February 17, 2022 TIME: 9:08 AM PATIENT IDENTITY VERIFICATION COMPLETED USING TWO (2) IDENTIFIERS: Name and Date of confirmedby patient verbally. FALL SCREENING: Has the patient [...] 17, 2022 9:08 AM documented in this encounterThe [facility] History of Present illness Narrative* Robert Garsia MD - 02/17/2022 8:36 AM EDT Parviz is a 72 year old who presents for an annual gynecologic exam without complaints. Postmenopausal: yes HRT use: No. Last Pap: 12/22/2017 normal HPV: 12/17/2017 negative History of abnormal pap: No Last mammogram: 2021 today Sexually active: occas., no change in partners OB History T2 L2 SAB0 IAB1 Ectopic0 Multiple0 Live Births0 Comment: NORMAL VAGINAL DELIVERY X2. Rotary Drill Operator History LMP: Postmenopausal Age at Menarche: Age at First : Age at Menopause: Rotary Drill Operator History Comments: Sexual Activity: Yes; Male Contraception: [...] Rotator cuff repair PAST SURGICAL HISTORY OF [place] teeth extracted PAST SURGICAL HISTORY OF 08/23/2006 [...] external genitalia normal, normal Bartholin's glands, urethra, [place]'s glands, no vulvar lesions, no cervical lesions, [...] up one year or sooner as needed Robert Garsia MD documented in this encounterThe [facility] History of Past illness Narrative* Problem Noted [...] of this encounter (statuses as of 02/17/2022) [facility] History of Past illness Narrative* Problem Noted [...] of this encounter (statuses as of 02/18/2022) [facility] History of Past illness Narrative* Problem Noted Date Diagnosed Date Resolved Date Open wound(s) (multiple) of unspecified site(s), without mention of complication 05/12/2007 04/28/2012 BCC///MALIG NEOPLASM SKIN FACE NEC 04/21/2007 09/03/2015 Other acne 04/21/2007 09/03/2015 Sebaceous cyst 04/21/2007 09/03/2015 Neoplasm of uncertain behavior of skin 03/18/2007 04/28/2012 Benign neoplasm of skin of o ther and unspecified parts of face 03/18/2007 09/03/2015 SOLAR LENGINES/DYSCHROMIA OTHER 03/18/2007 09/03/2015 Other chronic dermatitis due to solar radiation 03/18/2007 09/03/2015 documented as of this encounter (statuses as of 01/01/2024) [facility] History of Past illness Narrative* Problem Noted Date Diagnosed Date Resolved Date Open wound(s) (multiple) of unspecified site(s), without mention of complication 05/12/2007 04/28/2012 BCC///MALIG NEOPLASM SKIN FACE NEC 04/21/2007 09/03/2015 Other acne 04/21/2007 09/03/2015 Sebaceous cyst 04/21/2007 09/03/2015 Neoplasm of uncertain behavior of skin 03/18/2007 04/28/2012 Benign neoplasm of skin of o ther and unspecified parts of face 03/18/2007 09/03/2015 SOLAR LENGINES/DYSCHROMIA OTHER 03/18/2007 09/03/2015 Other chronic dermatitis due to solar radiation 03/18/2007 09/03/2015 documented as of this encounter (statuses as of 01/05/2024) [facility] Future Scheduled Tests Laboratory* Basic Metabolic Panel 02/25/23 * Lipid Profile 02/25/23 * N-Terminal proBNP 02/25/23 [facility] Evaluation + Plan note Future Appointments Appointment Date:04/26/2025 10:30:00 AM Scheduled Provider:SINDI ROA Location:[facility] PERSON Appointment Type:CV OV Future Scheduled Tests Radiology* NM Myocardial Spect Rest/Stress 03/20/25 [facility] Evaluation note* Diagnosis Encounter for gynecological examination (general) (routine) without abnormal findings Encounter for screening mammogram for breast cancer [facility]* Diagnosis Encounter for gynecological examination (general) (routine) without abnormal findings Encounter for screening mammogram for breast cancer documented [facility] this encounter [facility]* Diagnosis Onset Date Resolution Status Atrial fibrillation acute Chest pain acute Paroxysmal atrial fibrillation acute [facility] Work Phone: Evaluation note* Diagnosis Onset Date Resolution Status Chest pain acute [facility] Work Phone: Evaluation note* Diagnosis Onset Date Resolution Status Chest pain resolved [facility] Work Phone: Evaluation noteNo assessment information available [facility] Work Phone: Evaluation note* Diagnosis Onset Date Resolution Status Multiple thyroid nodules acu te [facility] Work Phone: Evaluation note* Diagnosis Encounter for screening mammogram for malignant neoplasm of breast Other screening mammogram documented in this encounter [facility] note* Diagnosis Onset Date Resolution Status Multiple thyroid nodules acu te Atrial fibrillation acute 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 [facility] Work Phone: Evaluation note* Diagnosis Encounter for gynecological examination (general) (routine) without abnormal findings- Primary Encounter for screening mammogram for breast cancer documented in this encounter [facility] note* Diagnosis Encounter for gynecological examination (general) (routine) without abnormal findings Encounter for screening mammogram for breast cancer documented in this encounter [facility] note* Diagnosis Onset Date Resolution Status Admit Date Polycythemia chronic May 18 025 3:27pm [facility] Work Phone: Hospital course Narrative No data available for this section [facility] Hospital Discharge instructions No data available for this section [facility] Note* CHADD BRAND MD: SIGN, VERIFY Event Display: Echocardiogram Complete w/Strain (AOH) Authored Date: [id number] [facility] Progress note No data available for this section [facility] Reason for referral (narrative)* Diagnostic Procedure Only (Routine) - Pending Review Specialty Diagnoses / Procedures Referred By Aj street Referred To Contact [facility] Diagnoses Encounter for gynecological examination (general) (routine) without abnormal findings Encounter for screening mammogram for breast cancer Procedures COLLEEN SCREENING W MALACHI SCREENING DIGITAL BREAST TOMOSYNTHESIS BI SCREENING MAMMOGRAPHY BI 2-VIEW BREAST INC Robert Buckley MD [address] [place] [address] [facility] [address] [place], [place] [phone] Referral ID Status Reason Start Date Expiration Date Visits Requested Visits Authorized [id number] Pending Review Auto-Generat ed Referral 02/17/2022 03/19/2023 1 1 [facility] (narrative)* Diagnostic Procedure Only (Routine) - Authorized Specialty Diagnoses / Procedures Referred By Aj street Referred To Contact [facility] Diagnoses Encounter for gynecological examination (general) (routine) without abnormal findings Encounter for screening mammogram for breast cancer Procedures COLLEEN SCREENING W MALACHI SCREENING DIGITAL BREAST TOMOSYNTHESIS BI SCREENING MAMMOGRAPHY BI 2-VIEW BREAST INC Robert Buckley MD [address] [place] [address] [facility] [address] [place] [phone] Referral ID Status Reason Start Date Expiration Date Visits Requested Visits Authorized [id number] Authorized Auto-Generat ed Referral 11/18/2025 1 1 [facility] for referral (narrative)No reason for referral information [facility]WA[facility] Work Phone: Reason for visit Narrative* Diagnostic Procedure Only (Routine) - Closed Specialty Diagnoses / Procedures Referred By Aj street Referred To Contact [facility] Diagnoses Encounter for screening mammogram for malignant neoplasm of breast Procedures COLLEEN SCREENING W MALACHI SCREENING DIGITAL BREAST TOMOSYNTHESIS BI SCREENING MAMMOGRAPHY BI 2-VIEW BREAST INC Robert Buckley MD [address] [place] [address] [facility] [address] [place] [address] Referral ID Status Reason Start Date Expiration Date V isits Requested Visits Authorized [id number] Closed Auto-Generate d Referral 12/17/2023 01/15/2025 1 1 [facility]* Diagnostic Procedure Only (Routine) - Closed Specialty Diagnoses / Procedures Referred By Aj t Referred To Contact [facility] Diagnoses Encounter for gynecological examination (general) (routine) without abnormal findings Encounter for screening mammogram for breast cancer Procedures COLLEEN SCREENING W MALACHI SCREENING DIGITAL BREAST TOMOSYNTHESIS BI SCREENING MAMMOGRAPHY BI 2-VIEW BREAST INC Robert Buckley MD [address] [place] [address] Phone: tel: fax: [facility] [address] [place] [address] Referral ID Status Reason Start Date Expiration Date V isits Requested Visits Authorized [id number] Closed Auto-Generate d Referral 10/19/2024 11/18/2025 1 1 [facility] Chief Complaint and Reason for Visit Chief Complaint CHEST PAIN Reason for Visit Atrial fibrillation Chest pain Paroxysmal atrial fibrillation Chief Complaint CHEST PAIN Reason for Visit Chest pain Chief Complaint CHEST PAIN CHEST PAIN Reason for Visit Chest pain Chief Complaint CHEST PAIN CHEST PAIN CHEST PAIN PRE-OP Reason for Visit Chest pain Chief Complaint NODULE Chief Complaint NODULE INT LABS THYROID NODULE Reason for Visit Multiple thyroid nod ules Chief Complaint INT LABS THYROID NODULE DYSPHAGIA Reason for Visit Multiple thyroid nod ules Chief Complaint DYSPHAGIA EORDER Chief Complaint EORDER LOCALIZED SWELLING Chief Complaint EORDER LOCALIZED SWELLING AGE RELATED OSTEOPOROSIS Chief Complaint EORDER LOCALIZED SWELLING AGE RELATED OSTEOPOROSIS REVERSE RIGHT TOTAL SHOULDER ARTHRO OSTEOARTHRITIS RIGHT SHOULDER *TORNAJ PROTOCOL* PREOP MULTIPLE THYROID NODULES Chief Complaint 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 *TORNAJ PROTOCOL* PREOP MULTIPLE THYROID NODULES Yearly f/u discuss results thyroid US 02/23 [facility] REVERSE RIGHT TOTAL SHOULDER ARTHRO REVERSE RIGHT TOTAL SHOULDER ARTHRO Reason for Visit Multiple thyroid nod ules Atrial fibrillation Status post reverse total arthroplasty of right shoulder Chief Complaint Admit Date cough January 04, 2025 11:19am DYSPNEA February 13, 2025 9:5 0am Chief Complaint Admit Date cough January 04, 2025 11:19am DYSPNEA February 13, 2025 9:5 0am F/U THYROID NODULES February 22, 2025 11:3 9am Chief Complaint Admit Date DYSPNEA February 13, 2025 9:5 0am F/U THYROID NODULES February 22, 2025 11:3 9am SOB April 11, 2025 6:24a m Shortness of breath April 11, 2025 5:46p m POLYCYTHEMIA May 18, 2025 3:27 pm MED ONC May 18, 2025 3:46 pm Reason for Visit Admit Date Polycythemia May 18, 2025 3:27 pm Chief Complaint Admit Date DYSPNEA February 13, 2025 9:5 0am F/U THYROID NODULES February 22, 2025 11:3 9am SOB April 11, 2025 6:24a m Shortness of breath April 11, 2025 5:46p m POLYCYTHEMIA May 18, 2025 3:27 pm MED ONC May 18, 2025 3:46 pm [facility] June 08, 2025 3:06 pm Reason for Visit Admit Date Polycythemia May 18, 2025 3:27 pm Polycythemia June 08, 2025 3:06 pm Chief Complaint Admit Date F/U THYROID NODULES February 22, 2025 11:3 9am SOB April 11, 2025 6:24a m Shortness of breath April 11, 2025 5:46p m POLYCYTHEMIA May 18, 2025 3:27 pm MED ONC May 18, 2025 3:46 pm [facility] June 08, 2025 3:06 pm E-ORDER June 08, 2025 4:30 pm Advance Directives No Advanced Directives Records Found Advance Directive Response Recorded Date/ Time Living Will Yes March 14, 2022 3:22pm Power of Handkerchief Presser Yes March 14 3:22pm Advance Directive Response Recorded Date/ Time Living Will Yes March 14, 2022 6:38pm Power of Handkerchief Presser Yes March 14 6:38pm Advance Directive Response Recorded Date/ Time Name of Medical Power of Handkerchief Presser Alejandra Cash March 14, 2022 6:38pm Living Will Yes March 14, 2022 6:38pm Power of Handkerchief Presser Yes March 14 6:38pm Advance Directive Response Recorded Date/ Time Living Will Yes March 14, 2022 5:38pm Power of Handkerchief Presser Yes March 14 5:38pm Advance Directive Response Recorded Date/ Time Name of Medical Power of Handkerchief Presser ON FILE February 17, 2024 2:20pm Living Will Yes February 17, 2024 2:20pm Power of Handkerchief Presser Yes February 16 2:20pm Advance Directive Response Recorded Date/ Time Name of Medical Power of Handkerchief Presser ON FILE March 16, 2024 4:24pm Living Will Yes March 16, 2024 4:24pm Power of Handkerchief Presser Yes March 16 4:24pm Advance Directive Response Recorded Date/ Time Living Will Yes February 17, 2024 2:20pm Do you have a Healthcare Power of Handkerchief Presser? Yes February 17, 2024 2:20pm Summary Purpose Family History No Family History Records Found Additional Source Comments Source Comments (unrecognize d section and content) In the event this informatio n is protected by the Federal Confidentiality of Alcohol and Drug Abuse Patient Records regulations: The Federal rules restrict any use of the information to criminally investigate or prosecute any alcohol or drug abuse patient.[facility] the event this information is protected by the Federal Confidentiality of Alcohol and Drug Abuse Patient Records regulations: The Federal rules restrict any use of the information to criminally investigate or prosecute any alcohol or drug abuse patient.[facility] SystemIn the event this information is protected by the Federal Confidentiality of Alcohol and Drug Abuse Patient Records regulations: The Federal rules restrict any use of the information to criminally investigate or prosecute any alcohol or drug abuse patient.[facility] the event this information is protected by the Federal Confidentiality of Alcohol and Drug Abuse Patient Records regulations: The Federal rules restrict any use of the information to criminally investigate or prosecute any alcohol or drug abuse patient.[facility] the event this information is protected by the Federal Confidentiality of Alcohol and Drug Abuse Patient Records regulations: The Federal rules restrict any use of the information to criminally investigate or prosecute any alcohol or drug abuse patient.[facility] the event this information is protected by the Federal Confidentiality of Alcohol and Drug Abuse Patient Records regulations: The Federal rules restrict any use of the information to criminally investigate or prosecute any alcohol or drug abuse patient.[facility] the event this information is protected by the Federal Confidentiality of Alcohol and Drug Abuse Patient Records regulations: The Federal rules restrict any use of the information to criminally investigate or prosecute any alcohol or drug abuse patient.[facility] Care Teams (unrecognized sec tion and content) Lens Cleaner Relationship Specialty Start Date End Date Farnaz Simon MD [address] [place], [place] [address] [place], [place] [id number] PCP - General Family Practice 11/27/10 Lens Cleaner Relationship Specialty Start Date End Date Farnaz Simon MD [address] [place], [place] [address]ED[place], [place] [id number] PCP - General Family Practice 11/27/10 Team Status: Active Member Role Status Dates Dr. Arslan Simon MD Family Provider Active Dr. Arslan Simon MD Primary Care Provider Activ e Team Status: Active Member Role Status Dates Dr. Arslan Simon MD Primary Care Provider, Attending Provider, Referring Provider Active Team Status: Inactive Member Role Status Dates Dr. Arslan Simon MD Primary Care Provider, Atte nding Provider Active Team Status: Active Member Role Status Dates Dr. Arslan Simon MD Primary Care Provider, Atte nding Provider Active Team Status: Inactive Member Role Status Dates Dr. Arslan Simon MD Primary Care Provider, Attending Provider, Referring Provider Active Team Status: Inactive Member Role Status Dates Dr. Arslan Simon MD Primary Care Provider, Refe rring Provider Active Dr. Mikhail Cardenas MD Attending Provider Active Team Status: Inactive Member Role Status Dates Dr. Arslan Simon MD Primary Care Provider Activ e Dr. Mikhail Cardenas MD Attending Provider, Referring P jim Active Lens Cleaner Relationship Specialty Start Date End Date Farnaz Simon [place] [address] PCP - General Family Medicine 11/27/10 Lens Cleaner Relationship Specialty Start Date End Date Farnaz Simon MD [address] [place] [address] PCP - General Family Medicine 11/27/10 Team Status: Active Member Role Status Dates Dr. Arslan Simon MD Primary Care Provider Activ e Dr. Ritesh Meraz MD Attending Provider Active Dr. Dat Mata MD Referring Provider Active Team Status: Active Member Role Status Dates Dr. Arslan Simon MD Primary Care Provider Activ e Dr. Mikhail Cardenas MD Attending Provider, Referring P rovider Active Team Status: Inactive Member Role Status Dates Dr. Arslan Simon MD Primary Care Provider Activ e Dr. Dat Mata MD Attending Provider Active Team Status: Active Member Role Status Dates Dr. Arslan Simon MD Primary Care Provider Activ e Dr. Dat Mata MD Attending Provider Active Team Status: Active Member Role Status Dates Dr. Farnaz Simon MD Family Provider Active Dr. Farnaz Simon MD Primary Care Provider Acti ve Team Status: Active Member Role Status Dates Dr. Farnaz Simon MD Primary Care Provider Acti ve Dr. Ritesh Meraz MD Attending Provider Active Dr. Dat Mata MD Referring Provider Active Team Status: Inactive Member Role Status Dates Dr. Farnaz Simon MD Primary Care Provider Acti ve Dr. Mikhail Cardenas MD Attending Provider, Referring P rovider Active Team Status: Inactive Member Role Status Dates Dr. Farnaz Simon MD Primary Care Provider, Attending Provider, Referring Provider Active Team Status: Inactive Member Role Status Dates Dr. Farnaz Simon MD Primary Care Provider Acti ve Dr. Dat Mata MD Attending Provider Active Team Status: Active Member Role Status Dates Dr. Farnaz Simon MD Primary Care Provider Acti ve Dr. Dat Mata MD Admit Provider, R eferring Provider, Other Provider Active Dr. Abrahan Silver DO Attending Provider Active Team Status: Inactive Member Role Status Dates Dr. Farnaz Simon MD Primary Care Provider Acti ve Dr. Dat Mata MD Admit Provider, A ttending Provider, Referring Provider Active Dr. Abrahan Silver , DO Other Provider Active Dr. Saritha Sandoval , DO Other Provider Active Lens Cleaner Relationship Specialty Start Date End Date Farnaz Simon MD [address] [facility] [address] PCP - General Family Medicine 11/27/10 Lens Cleaner Relationship Specialty Start Date End Date Farnaz Simon MD [address] [facility]], [place] [address] PCP - General [facility] Medicine 11/27/10 Team Status: Active Member Role Status Dates Dr. Farnaz Simon MD Primary Care Provider Acti ve Team Status: Inactive Member Role Status Dates Dr. Farnaz Simon MD Primary Care Provider Acti ve Start: January 04, 2025 End: January 04, 2025 Dr. Farnaz Simon MD Attending Provider Active Start: January 04, 2025 End: January 04, 2025 Dr. Farnaz Simon MD Referring Provider Active Start: January 04, 2025 End: January 04, 2025 Team Status: Inactive Member Role Status Dates Dr. Farnaz Simon MD Primary Care Provider Acti ve Start: January 05, 2025 End: January 05, 2025 Dr. Farnaz Simon MD Attending Provider Active Start: January 05, 2025 End: January 05, 2025 Dr. Farnaz Simon MD Referring Provider Active Start: January 05, 2025 End: January 05, 2025 Team Status: Inactive Member Role Status Dates Dr. Farnaz Simon MD Primary Care Provider Acti ve Start: February 13, 2025 End: February 13, 2025 Dr. Farnaz Simon MD Attending Provider Active Start: February 13, 2025 End: February 13, 2025 Dr. Farnaz Simon MD Referring Provider Active Start: February 13, 2025 End: February 13, 2025 Team Status: Active Member Role Status Dates Dr. Farnaz Simon MD Primary Care Provider Acti ve Start: February 13, 2025 Dr. Ritesh Meraz MD Attending Provider Active S tart: February 13, 2025 Team Status: Inactive Member Role Status Dates Dr. Farnaz Simon MD Primary Care Provider Acti ve Start: February 22, 2025 End: February 22, 2025 Dr. Mikhail Cardenas MD Attending Provider Active Start: February 22, 2025 End: February 22, 2025 Dr. Mikhail Cardenas MD Referring Provider Active Start: February 22, 2025 End: February 22, 2025 Lens Cleaner Relationship Specialty Start Date End Date Farnaz Simon MD [address] [place] [id number] PCP - General Family Medicine 11/27/10 Team Status: Inactive Member Role Status Dates Dr. Farnaz Simon MD Primary Care Provider Acti ve Start: April 11, 2025 End: April 11, 2025 Sindi Crispin RESTAURANT SHIFT SUPERVISOR, RESTAURANT SHIFT SUPERVISOR-C Attending Provider Active Start: April 11, 2025 End: April 11, 2025 Sindi Fish RESTAURANT SHIFT SUPERVISOR, RESTAURANT SHIFT SUPERVISOR-C Referring Provider Active Start: April 11, 2025 End: April 11, 2025 Team Status: Active Member Role Status Dates Dr. Farnaz Simon MD Primary Care Provider Acti ve Start: April 11, 2025 Sindi Crispin RESTAURANT SHIFT SUPERVISOR, RESTAURANT SHIFT SUPERVISOR-C Referring Provider Active Start: April 11, 2025 Sindi Crispin RESTAURANT SHIFT SUPERVISOR, RESTAURANT SHIFT SUPERVISOR-C Other Provider Active Star t: April 11, 2025 Dr. Ritesh Meraz MD Attending Provider Active S tart: April 11, 2025 Team Status: Inactive Member Role Status Dates Dr. Farnaz Simon MD Primary Care Provider Acti ve Start: May 18, 2025 End: May 18, 2025 Dr. Farnaz Simon MD Referring Provider Active Start: May 18, 2025 End: May 18, 2025 Dr. Rudy Ortiz MD Attending Provider Active S tart: May 18, 2025 End: May 18, 2025 Team Status: Active Member Role Status Dates Dr. Farnaz Simon MD Primary Care Provider Acti ve Start: May 18, 2025 Dr. Rudy Ortiz MD Attending Provider Active S tart: May 18, 2025 Dr. Rudy Ortiz MD Referring Provider Active S tart: May 18, 2025 Team Status: Active Member Role/Relationship Status Dates Dr. Farnaz Simon MD Primary Care Provider Acti ve Team Status: Inactive Member Role/Relationship Status Dates Dr. Farnaz Simon MD Primary Care Provider Acti ve Start: February 13, 2025 End: February 13, 2025 Dr. Farnaz Simon MD Attending Provider Active Start: February 13, 2025 End: February 13, 2025 Dr. Farnaz Simon MD Referring Provider Active Start: February 13, 2025 End: February 13, 2025 Team Status: Active Member Role/Relationship Status Dates Dr. Farnaz Simon MD Primary Care Provider Acti ve Start: February 13, 2025 Dr. Ritesh Meraz MD Attending Provider Active S tart: February 13, 2025 Team Status: Inactive Member Role/Relationship Status Dates Dr. Farnaz Simon MD Primary Care Provider Acti ve Start: February 22, 2025 End: February 22, 2025 Dr. Mikhail Cardenas MD Attending Provider Active Start: February 22, 2025 End: February 22, 2025 Dr. Mikhail Cardenas MD Referring Provider Active Start: February 22, 2025 End: February 22, 2025 Team Status: Inactive Member Role/Relationship Status Dates Dr. Farnaz Simon MD Primary Care Provider Acti ve Start: April 11, 2025 End: April 11, 2025 Sindi Roa [employer] SUPERVISOR, [employer] SUPERVISOR-C Attending Provider Active Start: April 11, 2025 End: April 11, 2025 Sindi Crispin [employer] SUPERVISOR, [employer] SUPERVISOR-C Referring Provider Active Start: April 11, 2025 End: April 11, 2025 Team Status: Active Member Role/Relationship Status Dates Dr. Farnaz Simon MD Primary Care Provider Acti ve Start: April 11, 2025 Sindi Roa [employer] SH[employer] SUPERVISOR, [employer]ANT SHIFT SUPERVISOR-C Referring Provider Active Start: April 11, 2025 Sindi Roa [employer] SHIFT SUPERVISOR, [employer] SUPERVISOR-C Other Provider Active Star t: April 11, 2025 Dr. Ritesh Meraz MD Attending Provider Active S tart: April 11, 2025 Team Status: Inactive Member Role/Relationship Status Dates Dr. Farnaz Simon MD Primary Care Provider Acti ve Start: May 18, 2025 End: May 18, 2025 Dr. Farnaz Simon MD Referring Provider Active Start: May 18, 2025 End: May 18, 2025 Dr. Rudy Ortiz MD Attending Provider Active S tart: May 18, 2025 End: May 18, 2025 Team Status: Active Member Role/Relationship Status Dates Dr. Farnaz Simon MD Primary Care Provider Acti ve Start: May 18, 2025 Dr. Rudy Ortiz MD Attending Provider Active S tart: May 18, 2025 Dr. Rudy Ortiz MD Referring Provider Active S tart: May 18, 2025 Team Status: Inactive Member Role/Relationship Status Dates Dr. Farnaz Simon MD Primary Care Provider Acti ve Start: June 08, 2025 End: June 08, 2025 Dr. Farnaz Simon MD Referring Provider Active Start: June 08, 2025 End: June 08, 2025 Dr. Rudy Ortiz MD Attending Provider Active S tart: June 08, 2025 End: June 08, 2025 Team Status: Inactive Member Role/Relationship Status Dates Dr. Farnaz Simon MD Primary Care Provider Acti ve Start: February 22, 2025 End: February 22, 2025 Dr. Mikhail Cardenas MD Attending Provider Active Start: February 22, 2025 End: February 22, 2025 Dr. Mikhail Cardenas MD Referring Provider Active Start: February 22, 2025 End: February 22, 2025 Team Status: Inactive Member Role/Relationship Status Dates Dr. Farnaz Simon MD Primary Care Provider Acti ve Start: April 11, 2025 End: April 11, 2025 Sindi Roa [employer] SH[employer] SUPERVISOR, [employer]ANT SHIFT SUPERVISOR-C Attending Provider Active Start: April 11, 2025 End: April 11, 2025 Sindi Crispin [employer] SH[employer] SUPERVISOR, [employer] SHIFT SUPERVISOR-C Referring Provider Active Start: April 11, 2025 End: April 11, 2025 Team Status: Active Member Role/Relationship Status Dates Dr. Farnaz Simon MD Primary Care Provider Acti ve Start: April 11, 2025 Sindi Roa [employer] SHIFT SUPERVISOR, RESTA[employer]ANT SHIFT SUPERVISOR-C Referring Provider Active Start: April 11, 2025 Sindi Roa [employer]ANT SHIFT SUPERVISOR, [employer]ANT SHIFT SUPERVISOR-C Other Provider Active Star t: April 11, 2025 Dr. Ritesh Meraz MD Attending Provider Active S tart: April 11, 2025 Team Status: Inactive Member Role/Relationship Status Dates Dr. Farnaz Simon MD Primary Care Provider Acti ve Start: May 18, 2025 End: May 18, 2025 Dr. Farnaz Simon MD Referring Provider Active Start: May 18, 2025 End: May 18, 2025 Dr. Rudy Ortiz MD Attending Provider Active S tart: May 18, 2025 End: May 18, 2025 Team Status: Active Member Role/Relationship Status Dates Dr. Farnaz Simon MD Primary Care Provider Acti ve Start: May 18, 2025 Dr. Rudy Ortiz MD Attending Provider Active S tart: May 18, 2025 Dr. Rudy Ortiz MD Referring Provider Active S tart: May 18, 2025 Team Status: Inactive Member Role/Relationship Status Dates Dr. Farnaz Simon MD Primary Care Provider Acti ve Start: June 08, 2025 End: June 08, 2025 Dr. Farnaz Simon MD Referring Provider Active Start: June 08, 2025 End: June 08, 2025 Dr. Rudy Ortiz MD Attending Provider Active S tart: June 08, 2025 End: June 08, 2025 Team Status: Inactive Member Role/Relationship Status Dates Dr. Farnaz Simon MD Primary Care Provider Acti ve Start: June 08, 2025 End: June 08, 2025 Dr. Rudy Ortzi MD Attending Provider Active S tart: June 08, 2025 End: June 08, 2025 Dr. Rudy Ortiz MD Referring Provider Active S tart: June 08, 2025 End: June 08, 2025 Goals (unrecognized section and content) Goals may be documented in a n alternate sectionGoals may be documented in an alternate sectionGoals may be documented in an alternate section No data available for this section No data available for this sectionGoals may be documented in an alternate sectionGoals may be documented in an alternate sectionGoals may be documented in an alternate sectionGoals may be documented in an alternate section No data available for this sectionGoals may be documented in an alternate sectionGoals may be documented in an alternate sectionGoals may be documented in an alternate sectionGoals may be documented in an alternate sectionGoals may be documented in an alternate sectionGoals may be documented in an alternate section No data available for this sectionGoals may be documented in an alternate sectionGoals may be documented in an alternate section No data available for this sectionGoals may be documented in an alternate sectionGoals may be documented in an alternate sectionGoals may be documented in an alternate section INFORMATION SOURCE (unrecogn ized section and content) DATE CREATED AUTHOR 03/15/2024 [facility] ([place]) DATE CREATED AUTHOR AUTHOR'S ORGANIZ ATION 01/03/2025 [facility] DATE CREATED AUTHOR AUTHOR'S ORGANIZ ATION 03/21/2025 [facility] DATE CREATED AUTHOR AUTHOR'S ORGANIZ ATION 06/15/2025 [facility] Reason for Visit (unrecogniz ed section and content) Reason Comments Yearly Exam FOR RECORDS PERTAINING TO PATIENTS WHO ARE [...] BE BASED ON THE PRIMARY CLINICAL RECORDS. Framed Data [facility]. provides no warranty or guarantee of the accuracy or completeness of information in this document.
--- NOTE | 2025-06-16 08:36 | RAD_ITS ---
PROCEDURE: CHEST PA AND LATERAL 06/16/2025 REASON FOR EXAM: POLYCYTHEMIA/THYROID NODULES TECHNIQUE: CHEST PA AND LATERAL COMPARISON: 01/04/2025 FINDINGS: Mild pulmonary vascular congestion. No focal consolidation. No pleural effusion or pneumothorax. Cardiac silhouette is within normal limits. Calcified aortic arch. Right shoulder prosthesis. No acute fractures. RAD/Chest PA and Lateral IMPRESSION: Mild pulmonary vascular congestion. No focal consolidation. Reading Location: [id number]
== END | disposition home or self-care (01) ==
PROVIDERS: PCP Family Medicine; Referring Provider Internal Medicine Medical Oncology; Visit Provider Internal Medicine Medical Oncology
DX: D75.1 Secondary polycythemia (principal); E04.2 Nontoxic multinodular goiter
CPT/HCPCS: 71046; 76700

== ENCOUNTER 2025-07-01 03:29 | Emergency (ER) | payer MEDICARE, BC, SELFPAY ==
[2025-07-01] VITALS (14 sets, daily range): BP systolic 116–174; BP diastolic 59–83; PULSE 65–77; RESP 13–29; TEMP 36.7–36.9; O2SAT 92–96; BMI 44.6
--- NOTE | 2025-07-01 03:45 | EKG12_ITS ---
Test Reason : CHEST PAIN Blood Pressure : */* mmHG Vent. Rate : 69 BPM Atrial Rate : 69 BPM P-R Int : 178 ms QRS Dur : 116 ms QT Int : 406 ms P-R-T Axes : 26 -48 6 degrees QTcB Int : 435 ms Normal sinus rhythm Left anterior fascicular block Left ventricular hypertrophy with QRS widening ( R in aVL , [place] product ) Confirmed by SHAYNE SNOWDEN, MARY ([id number]), news copy editor HANH ZAFAR ([id number]) on 07/03/2025 1:09:36 PM Referred By: ASHLYN Confirmed By: MARY BELLA MD
[2025-07-01 03:59] LABS: Hematocrit 47.7 % (37-47); Hemoglobin 16.2 g/dL (12.0-15.0); Immature Granulocytes Count 0.030 X10^3/uL (0.0-0.0); Mean Corp Hgb Conc 34.0 g/dL (32-36); Mean Corpuscular Volume 91.7 fL (81-99); Mean Platelet Vol. 9.5 fl (6.2-12.0); NRBC Flagged by Analyzer 0 % (0-5); Platelet Count 231 K/mm3 (150-450); RBC Distribution Width CV 13.8 % (11.6-14.6); RBC Distribution Width SD 46.7 fl (35.1-43.9); Red Blood Count 5.20 M/mm3 (4.2-5.4); White Blood Count 8.7 K/mm3 (4.4-11.0)
--- NOTE | 2025-07-01 04:00 | RAD_ITS ---
PROCEDURE: CHEST PA AND LATERAL 07/01/2025 REASON FOR EXAM: CHEST PAIN TECHNIQUE: CHEST PA AND LATERAL COMPARISON: 06/16/2025 FINDINGS: Normal heart size. Replaced right shoulder joint. Status post left-sided shoulder surgery. Well inflated lungs. No consolidation, effusion, or pneumothorax. RAD/Chest PA and Lateral IMPRESSION: No acute chest findings. Reading Location: [place] [id number]
[2025-07-01] MEDS: 0.9% Normal Saline (1000mL) 1,000 ML 999 ML IV (04:09)
--- OUTSIDE RECORDS SUMMARY | 2025-07-01 04:24 | XMS RPT_ITS | CCD ---
Author Organization [facility] Care Team Providers Care Back Tufter Name Role Phone Farnaz Simon MD Primary Care Provider Dr. Arslan Simon Primary Care Provider [phone] Dr. Quincy Cortes Attending Provider Dr. Abrahan Mcdermott Emergency Provider Dr. Jack Perez Admit Provider Dr. Alden Grande Other Provider Landen BACKHOE OPERATOR, BACKHOE OPERATOR-C Johana Attending Provider Dr. Arslan Simon Primary Care Provider Dr. Casper Perez Attending Provider [phone] Jack Perez Referring Provider Dr. Alden Grande Attending Provider DR FARNAZ SIMON MD Primary Care Physician Dr. Arslan Simon Primary Care Provider Dr. Arslan Simon Referring Provider Dr. Mikhail Cardenas Attending Provider Farnaz Simon MD Primary Care Provider Dr. Arslan Simon Primary Care Provider [phone] Dr. Ritesh Meraz Attending Provider Dr. Dat Mata Referring Provider Dr. Farnaz Simon Primary Care Provider [phone] DR FARNAZ SIMON MD Primary Care Luis [...] GARSIA Referring Unavailable [facility]NAZ SIMON [facility] Referring Unavailable ROBERT GARSIA Attending Unavailable FARNAZ SIMON [facility] silva Simon MD, Dr. Osei Primary Care Provider Alfred SNOWDEN, Dr. Osei Attending Provider Alfred SNOWDEN, Dr. Osei Referring Provider Kt SNOWDEN, Dr. Awad Attending Provider Ronald SNOWDEN, Dr. Elizondo Attending Provider Ronald SNWODEN, Dr. Elizondo Referring Provider ALFRED SNOWDEN, DR OSEI [facility] Luis ricci FISH WIRELESS OPERATOR-MULTI SHARE PROGRAM COORDINATOR, SINDI Attending Dr. Farnaz Mondragon MD Primary Care Provider Dr. Farnaz Simon MD Attending Provider Alfred SNOWDEN, Dr. Osei Referring Provider Fish BACKHOE OPERATOR-C, Sindi Attending Provider Fish BACKHOE OPERATOR-C, Sindi Referring Provider Fish BACKHOE OPERATOR-C, Sindi Other Provider [phone] Anegl SNOWDEN, Dr. Grant Attending Provider Dr. Rudy Ortiz MD Referring Provider [phone] Alfred SNOWDEN, Dr. Osei Primary Care Provider Kt SNOWDEN, Dr. Awad Attending Provider [phone] Dr. Farnaz Simon MD Ref[facility] Care Unavailable [facility], Farnaz Referring Unavailable Prah, Rudy Attending Unavailable Ranfort worth, Ventress Primary Care Unavailable Fish BACKHOE OPERATOR, Sindi Referring Unavailable Fish BACKHOE OPERATOR, Sindi Attending [facility] Prah, Rudy Attending Unavailable Prah, Rudy Referring Unavailable Ranney, Ventress Primary Care Unavailable Prah, Rudy Attending Unavailable Prah, Rudy Referring Unavailable Prah, Rudy Attending Unavailable [facility] Care Unavailable Prah, Rudy Referring Unavailable Ranney, Farnaz Referring Unavailable Prah, Rudy Attending Unavailable [facility], [facility] Care Unavailable [facility], [facility] Care Unavailable [facility], Farnaz Referring Unavailable Prah, Rudy Attending Unavailable [facility], [facility] Care Unavailable Ritesh Meraz Attending Unavailable [place] worth, [place] Primary Care Unavailable Ritesh Meraz Attending Unavailable Fish BACKHOE OPERATOR, Sindi Referring Unavailable Fish BACKHOE OPERATOR, Sindi Consulting Unavailable [facility], [place] Primary Care Unavailable Mikhail Cardenas Referring Unavailable Mikhail Cardenas Attending [facility]available [facility] Unavailable Alfred, Farnaz Referring Unavailable Alfred, Farnaz Attending Unavailable [facility] Care Unavailable [facility], Farnaz Referring Unavailable Alfred, Farnaz Attending [facility]available [facility] Care Unavailable Alfred, Farnaz Referring Unavailable Farnaz Simon Attending Unavailable Allergies Allergy Classification Reported Allergen(s) Allergy Type Date of Onset Reaction(s) Facility (20 sources) Adhesive agent; Translations: [ADHESIVE] Drug Intolerance 4 Rash, Itching [facility] Work Phone: (20 sources) Risedronate; Translations: [RISEDRONATE SODIUM] Drug Allergy 9 Other: See Comments [facility] Comment on above: SORE JOINTS AND MUSC LES (15 sources) Sulfonamides (Antibiotic); Translations: [sulfa drugs] Propensity to adverse reactions 6 Rash [facility] Work Phone: (20 sources) DISPOSABLE STITCHES; Translations: [DISPOSABLE STITCHES] Allergy to substance 0 Rash [facility] (5 sources) Adhesive bandage Propensity to adverse reactions to substance skin irritation [facility] CV (5 sources) Risedronate; Translations: [risedronate] Drug Allergy Muscle pain (finding) [facility] CV (18 sources) Sulfonamides (Antibiotic) Allergy to substance 0 Other [facility] (2 sources) Sulfonamide; Translations: [sulfa drugs] Drug allergy rash [facility] CV (5 sources) Atenolol Drug Allergy 5 NEEDS FOLLOW-UP [facility] (5 sources) egg extract Drug Allergy 5 Rash [facility] (1 source) Atenolol Drug Allergy 5 [facility] Repository (1 source) egg extract Drug Allergy 5 [facility] (1 source) Risedronate Drug Allergy 5 [facility] (1 source) Sulfonamides (Antibiotic) Drug allergy (disorder) 5 [facility] Medications Current Medications Medication Drug Class(es) Dates Sig (Normalized) Sig (Original) apixaban 5 mg oral tablet (10 sources) Factor Xa Inhibitor Start: 05-08-2025 take 1 tablet by mouth twice daily Apixaban (Eliquis) 5 mg tablet Active 5 mg PO TWICE A DAY May 08, 2025 12:00am Start: 05-13-2024 take 1 tablet by lucie every twelve hours ELIQUIS 5 mg tab(s) Take 1 tablet by mouth every 12 hours. 08/01/2024 Active ascorbic acid 113 mg / beta carotene 7160 mg / cuprous oxide 0.4 mg / dl-alpha tocopheryl acetate 100 unt / zinc oxide 17.4 mg oral tablet (11 sources) Vitamin C Start: 02-17-2024 Vitamins A,C,E [...] mg / cholecalciferol 200 unt oral tablet (11 sources) Vitamin D Start: 02-17-2024 Calcium Carbonate-Vitamin [...] Start: 07-25-2020 take 1000 [IU] by mo ut once daily Cholecalciferol (Vitamin D3) Active 1000 UNIT PO DAILY July 25, 2020 12:00am Start: 07-25-2020 take 2000 [IU] by mo [facility] once daily Cholecalciferol (Vitamin D3) Active 2000 [...] daily. clobetasol propionate 0.5 mg/ml topical solution (16 sources) Corticosteroid Start: 02-26-2024 Clobetasol Propionate (TEMOVATE) [...] 2024 12:00am cycloSPORINE 0.5 mg/ml ophthalmic suspension (5 sources) Calcineurin Inhibitor Immunosuppressant Start: 05-08-2025 Cyclosporine [...] 1 Start: 03-12-2019 take 1 capsule by [facility] once daily Diltiazem Hcl (Dilt-Xr) 120 capsule,ext.rel [...] qDay, # 90 tab(s), 3 Refill(s), Pharmacy: [id number], 162.6, cm, 02/26/24 11:52:00 EDT, Height, kg, 02/26/24 11:52:00 EDT, Dosing Weight Start Date: 04/29/24 Status: Ordered Quantity: 90.0 Unit: tab(s) Repeat number: 4 Start: 07-31-2023 furosemide 40 mg oral tablet Dose : 40 mg = 1 tab(s), Oral, qDay, # 30 tab(s), 6 Refill(s), Pharmacy: [id number], 162.6, cm, 07/31/23 9:32:00 EDT, [...] Start: 02-26-2024 take 1 capsule by mo [facility] twice daily ICaps AREDS 2 oral capsule [...] 12.5 mg magne- sium (250 mg) tablet (5 sources) Start: 05-08-2025 take 1 tablet by [...] palpitations, # 30 tab(s), 6 Refill(s), Pharmacy: [id number], 162.6, cm, 02/04/23 10:36:00 EDT, [...] Status: Ordered spironolactone 25 mg oral tablet (19 sources) Aldosterone Antagonist Start: 02-04-2023 take 1 [...] Sig (Original) acetaminophen 500 mg oral tablet (8 sources) Start: 03-17-2024 End: 05-08-2025 Acetaminophen 500 [...] period. carboxymethylcellulose sodium 5 mg/ml ophthalmic solution (11 sources) Start: 02-17-2024 End: 05-08-2025 take 0.5 [...] 12:00am docusate sodium 50 mg / sennosides, penitent[facility] 8.6 mg oral tablet (8 sources) Start: 03-17-2024 End: 05-08-2025 Sennosides-Docusate Sodium (Stool Softener-Stimulant Laxat) 8.6-50 mg Tablet Discontinued 2 {tbl} PO TWICE A DAY 12 3 0 March 17, 2024 12:00am May 08, 2025 9:29am Take until first bowel movement, then as needed doxycycline monohydrate 100 mg oral capsule (8 sources) Tetracyclin e-class Drug Start: 03-17-2024 End: 05-08-2025 take 1 capsule by mouth twice daily Doxycycline Monohydrate 100 mg Capsule Discontinued 100 mg PO TWICE A DAY 28 14 0 March 17, 2024 12:00am May 08, 2025 9:30am Take for 2 weeks postoperatively L.Acid,Para-B.Bifi dum-S.Therm 8 billion cell capsule (7 sources) Start: 03-02-2024 End: 05-08-2025 take 8 [...] 5 02-04-2023 Chronic Deficiency and other anemia (5 sources) Increased hemoglobin; Translations: [Other hemoglobinopathies] 05-08-2025 Chronic Deficiency and other anemia (1 source) Other hemoglobinopathies; Translations: [Other hemoglobinopathies] Onset: 5 Chronic Essential hypertension (17 sources) Hypertensive disorder; Translations: [Essential (primary) hypertension] Onset: 0 02-17-2022 Chronic Hypertension with complications and secondary hypertension (2 sources) Hypertensive heart failure; Translations: [Hypertensive heart disease with heart failure] Chronic Nonspecific chest pain (20 sources) Chest pain; Translations: [Chest pain, unspecified] Episodic Osteoarthritis (7 sources) Arthritis of knee; Translations: [Unilateral primary osteoarthritis, unspecified knee] Onset: 0 02-17-2022 Chronic Other aftercare (1 source) intermediate designer (current) use of anticoagulants; Translations: [intermediate designer (current) use of anticoagulants] Onset: 5 Episodic Other and ill-defined heart disease (7 sources) Diastolic dysfunction; Translations: [Other ill-defined heart diseases] Onset: 6 09-23-2016 Chronic Other connective tissue disease (8 sources) History of reverse prosthetic total arthroplasty of right shoulder; Translations: [Presence of right artificial shoulder joint] 03-17-2024 Chronic Other connective tissue disease (1 source) Presence of right artificial shoulder joint; Translations: [Shoulder joint replacement] 03-17-2024 Chronic Other connective tissue disease (5 sources) Hand pain; Translations: [Pain in right hand] 05-08-2025 Episodic Other hematologic conditions (14 sources) Erythrocytosis; Translations: [Secondary polycythemia] 05-18-2025 Episodic [...] of breast] Onset: 5 Episodic Thyroid disorders (20 sources) Multinodular goiter; Translations: [Nontoxic multinodular goiter] Onset: 5 04-10-2023 Chronic Comment on above: Patient is now a 74- year-old female, who remains euthyroid from an endocrine standpoint (last thyroid function testing end of last month), who presents for thyroid nodule surveillance. She previously underwent biopsy in 2022 for left-sided thyroid nodules that were both [place] 2 on final cytopathology. Today she denies [...] source) Cough, unspecified; Translations: [Cough, unspecified] Onset: 5 Past or Other Problems Problem Classification Problem [...] Test Name Value Interpretation Reference Range Facility Oncology Visit Reporton 05-25 Oncology Visit Report [facility] [address] [place] [address] OFFICE VISIT Date of Service: 06/22/25 1637 MR#: [id number] Acct: [id number] Name: PARVIZ TRACY Rep #: [id number] : 1950 From: Rudy Ortiz MD Age/Sex: 75/F [place] [facility] [place]: Signed HPI Subjective Date of Service 06/22/25 Chief Complaint F/u for evaluation of polycythemia. History of Present Illness 75-year-old woman has had mild polycythemia since 2014. She had JAK2 V6 17F done on 03/18/2023 which was negative. Erythropoietin level at that time was 13.8. Recently hemoglobin has been persistently above normal so referred for further evaluation. She denied smoking, drinking alcohol. Had JAK2 with reflex, MPL done on 05/18/2025 which negative. and comes for follow up. [facility] Medical History Hypertension Hand pain, right [...] Diastolic dysfunction SVT (supraventricular tachycardia) Surgical History Squamous cell carcinoma of left lower leg History of bilateral carpal tunnel release History [...] type: does not use Intake Vital Signs 06/08/25 15:23 06/22/25 16:38 Height 5 ft 4 in 5 ft 4 in Weight: 115.212 kg BMI 43.6 BP 136/85 H Blood Pressure Location Lt radial Position Sitting Respiration 18 Pulse 68 Pulse Source Monitor Temp 98.4 F Temperature Source Temporal Artery Pulse Oximetry (%) 92 Oxygen Delivery Method room air Intake Accompanied by: Self Is patient in pain?: No Allergies adhesive Allergy (Verified 06/22/25 16:39) Rash atenolol Allergy (Verified 06/22/25 16:39) NEEDS FOLLOW-UP egg Allergy (Verified 06/22/25 16:39) Rash risedronate sodium (From Actonel) Allergy (Verified 06/22/25 16:39) Swelling Sulfa (Sulfonamide Antibiotics) Allergy (Verified 06/22/25 16:39) Other DISPOSABLE STITCHES Allergy (Uncoded 06/22/25 16:39) Rash Medications ???Medication ???Instructions ???Recorded ???Confirmed ???Type diltiazem HCl 120 mg 120 mg PO DAILY BP 03/12/19 History capsule,extended release 24 hr, controlled (DILT-XR) biotin 5 mg tablet 5 mg PO DAILY hair loss 07/25/20 0 06/22/25 History levothyroxine 75 mcg tablet 75 mcg PO DAILY thyroid 03/14/22 0 06/22/25 History (Euthyrox) metoprolol succinate 25 mg 25 mg PO DAILY #30 tabs 03/15/22 0 06/22/25 Rx tablet,extended release 24 hr calcium 600 mg (as 1 tab PO DAILY 02/17/24 06/22/25 H istory carbonate)-vitamin D3 5 mcg (200 unit) tablet (Calcium 600 + D(3)) clobetasol 0.05 % scalp solution 1 applic topical MOFR 02/17/24 History spironolactone 25 mg tablet 25 mg PO DAILY 02/17/24 06/22/25 H istory vitamins A,C,P-fczl-jxjjjq 2,148 1 tab PO BID 02/17/24 06/22/25 His tory mcg-113 mg-45 mg-17.4 mg tablet (Eye Multivitamin) apixaban 5 mg tablet (Eliquis) 5 mg PO BID 05/08/25 06/22/25 Hist ory cholecalciferol (vitamin D3) 50 2,000 unit PO DAILY supplement 06/22/25 History mcg (2,000 unit) capsule cyclosporine 0.05 % eye drops in a 1 drp ophthalmic (eye) 05/08/25 06/22/25 History dropperette (Restasis) furosemide 40 mg tablet 40 mg PO DAILY 05/08/25 06/22/25 H istory magnesium gluconate 12.5 mg 12.5 mg PO QDAY 05/08/25 06/22/25 History magnesium (250 mg) tablet Have you fallen in the past year?: No Central Venous Access Central Venous Access: No Laboratory Tests 06/08/25 16:35 WBC 8.8 Hgb 16.8 H Hct 48.0 H Plt Count 229 Absolute Neuts (auto) 5.8 Retic Count 1.51 H VBG Carboxyhemoglobin 3.0 H Sodium 139 Potassium 3.9 Chloride 105 Carbon Dioxide 20.9 L BU (more content not included)... Normal [facility] Abdomen Completeon Abdomen Complete [facility] [address] [place], [place] [id number] Abdomen Complete MR#: [id number] Acct: [id number] Name: PARVIZ TRACY Rep #: [id number] : 1950 F 75 From: Jeff Champion MD PCP: Dr. Farnaz Simon MD Status: REG CLI Study: Abdomen Complete Date of Exam: 06/16/25 Exam# [id number] Ordering Dr: Rudy Ortiz MD PROCEDURE: ABDOMEN COMPLETE 06/16/2025 REASON FOR EXAM: POLYCYTHEMIA TECHNIQUE: ABDOMEN COMPLETE COMPARISON: No FINDINGS: The liver is normal in size but there is hepatic steatosis and heterogeneous echotexture, correlate for medical liver disease... There is a 2.3 cm cyst.. There is cholelithiasis without wall thickening, pericholecystic fluid, or localized pain.. 6 mm CBD. Hepatopetal portal flow. Normal size spleen. Normal visible pancreas. The right kidney measures 12 cm in length without hydronephrosis. Left kidney measures 12 cm in length without hydronephrosis. There is a 2 cm simple cyst. The visible aorta is unremarkable. US/Abdomen Complete IMPRESSION: Cholelithiasis without specific ultrasound evidence of cholecystitis. Spleen is normal in size. Possible medical liver disease. Reading Location: [place] [address] CC: Dr. Farnaz Simon MD; Dr. Rudy Ortiz MD Dining Car Waiter/Waitress: Signed Normal [facility] Chest PA and Lateralon 06-16 Chest PA and Lateral [facility] Imaging [facility] [address] [place] [address] Chest PA and Lateral MR#: [id number] Acct: [id number] Name: PARVIZ TRACY Rep #: [id number] : 1950 F 75 From: Darya Hatch PCP: Dr. Farnaz Simon MD Status: REG CLI Study: Chest PA and Lateral Date of Exam: 06/16/25 Exam# [id number] Ordering Dr: Rudy Ortiz MD PROCEDURE: CHEST PA AND LATERAL 06/16/2025 REASON FOR EXAM: POLYCYTHEMIA/THYROID NODULES TECHNIQUE: CHEST PA AND LATERAL COMPARISON: 01/04/2025 FINDINGS: Mild pulmonary vascular congestion. No focal consolidation. No pleural effusion or pneumothorax. Cardiac silhouette is within normal limits. Calcified aortic arch. Right shoulder prosthesis. No acute fractures. RAD/Chest PA and Lateral IMPRESSION: Mild pulmonary vascular congestion. No focal consolidation. Reading Location: [facility] CC: Dr. Farnaz Simon MD; Dr. Rudy Ortiz MD Dining Car Waiter/Waitress: Signed Normal [facility] L511.0135on 06-14-2025 COHb 3.0 High 0.0-1.5 [facility] Comment on above: Order Comment: INCOR RECTLY ENTERED Result Comment: INCO RRECTLY ENTERED Performed By: #### L 300.4310, L300.8000, L504.2610, L300.3900, L503.6550 #### [facility] [address] [place], [address] Erythropoietinon 06-12-2025 ERYTHROPOIETIN 12.8 mIU/mL Normal 2.6-18.5 [facility] Comment on above: Result Comment: Organic To Go UniCel DxI 800 Immunoassay System Values obtained with different assay methods or kits cannot be used interchangeably. Results cannot be interpreted as absolute evidence of the presence or absence of malignant disease. Performed at: [address] [id number] Pet Technologist: Glenn Martínez PhD, Phone: [phone] Performed By: #### L 300.4310, L300.8000, L504.2610, L300.3900, L503.6550 #### [facility] [address] [place], [address] Absolute lymphocyte countOrd ered By: Rudy Ortiz on 06-08-2025 Lymphocytes Auto (Unsp spec) [#/Vol] 1.63 10*3/uL 0.83-4.51 [facility] Absolute neutrophil countOrd ered By: Rudy Veronicamontse on 06-08-2025 Neutrophils (Bld) [#/Vol] 5.8 10*3/uL 2.0-7.7 [facility] Activated partial thrombopla stin time (aPTT) in platelet poor plasma by coagulation aOrdered By: Rudy Veronicamontse on 06-08-2025 aPTT Coag (PPP) [Time] 27.8 s 24.1-36.2 [facility] Anion gap in Serum or Plasma Ordered By: Rudy [facility] on 06-08-2025 Anion gap [Moles/Vol] 14 mmol/L 5-15 [facility] Automated lymphocyte count a s percentage of total leukocytesOrdered By: Rudy Ortiz on 06-08-2025 Lymphocytes/100 WBC Auto (Unsp spec) 18.5 % Low 19-41 [facility] BUN/creatinine ratioOrdered By: [facility] on 06-08-2025 Urea nitrogen/Creatinine [Mass ratio] 23.2 mg/mg High 10-20 [facility] Basophil percentageOrdered B y: Rudy [facility] on 06-08-2025 Basophils/100 WBC (Bld) 0.9 % 0-1 [facility] Bilirubin, totalOrdered By: [facility] on 06-08-2025 Bilirubin [Mass/Vol] 0.29 mg/dL 0.00-1.30 [facility] Blood carboxyhemoglobin natalio urement (mass/volume)Ordered By: Rudy [facility] on 06-08-2025 Carboxyhemoglobin (Bld) [Mass/Vol] 3.0 % High 0.0-1.5 [facility] CBC W/Diff, Automatedon 05-23 Absolute Lymph 1.63 X10 3/uL Normal 0.83-4.51 [facility] Comment on above: Performed By: #### L 300.4310, L300.8000, L504.2610, L300.3900, L503.6550 #### [facility] [place] [address], [address] Absolute Neut 5.8 X10 3/uL Normal 2.0-7.7 [facility] Comment on above: Performed By: #### L 300.4310, L300.8000, L504.2610, L300.3900, L503.6550 #### [facility] [address] [place], [address] Basophils/100 WBC (Bld) 0.9 % Normal 0-1 [facility] Comment on above: Performed By: #### L 300.4310, L300.8000, L504.2610, L300.3900, L503.6550 #### [facility] [address] [place], [address] Eosinophils/100 WBC (Bld) 2.7 % Normal 0-5 [facility] Comment on above: Performed By: #### L 300.4310, L300.8000, L504.2610, L300.3900, L503.6550 #### [facility] [address] [place], [address] Erythrocyte distribution width (RBC) [Ratio] 14.1 % Normal 11.6-14.6 [facility] Comment on above: Performed By: #### L 300.4310, L300.8000, L504.2610, L300.3900, L503.6550 #### [facility] [address] [place], [address] Hematocrit (Bld) [Volume fraction] 48.0 % High 37-47 [facility] Comment on above: Performed By: #### L 300.4310, L300.8000, L504.2610, L300.3900, L503.6550 #### [facility] [address] [place], [address] Hemoglobin (Bld) [Mass/Vol] 16.8 g/dL High 12.0-15.0 [facility] Comment on above: Performed By: #### L 300.4310, L300.8000, L504.2610, L300.3900, L503.6550 #### [facility] [address] [place], [address] IG% 0.300 Normal 0.0-0.9 [facility] Comment on above: Result Comment: IG% - Immature Granulocytes (promyelocytes, myelocytes and metamyelocytes) > 1% indicates that a LEFT SHIFT is Present. Performed By: #### L 300.4310, L300.8000, L504.2610, L300.3900, L503.6550 #### [facility] [address] [place], [address] Lymphocytes/100 WBC (Bld) 18.5 % Low 19-41 [facility] Comment on above: Performed By: #### L 300.4310, L300.8000, L504.2610, L300.3900, L503.6550 #### [facility] [address] [place], [address] MCH (RBC) [Entitic mass] 31.6 pg Normal 27.0-32.0 [facility] Comment on above: Performed By: #### L 300.4310, L300.8000, L504.2610, L300.3900, L503.6550 #### [facility] [address] [place], [address] MCHC (RBC) [Mass/Vol] 35.0 g/dL Normal 32-36 [facility] Comment on above: Performed By: #### L 300.4310, L300.8000, L504.2610, L300.3900, L503.6550 #### [facility] [address] [place], [address] MCV (RBC) [Entitic vol] 90.2 fL Normal 81-99 [facility] Comment on above: Performed By: #### L 300.4310, L300.8000, L504.2610, L300.3900, L503.6550 #### [facility] [address] [place], [address] Monocytes/100 WBC (Bld) 11.1 % High 0-10 [facility] Comment on above: Performed By: #### L 300.4310, L300.8000, L504.2610, L300.3900, L503.6550 #### [facility] [address] [place], [address] Neutrophils/100 WBC (Bld) 66.5 % Normal 47-70 [facility] Comment on above: Performed By: #### L 300.4310, L300.8000, L504.2610, L300.3900, L503.6550 #### [facility] [address] [place], [address] Nucleated RBC (Bld) [#/Vol] 0 10*3/uL Normal 0-5 [facility] Comment on above: Performed By: #### L 300.4310, L300.8000, L504.2610, L300.3900, L503.6550 #### [facility] [address] [place], [address] Platelet mean volume (Bld) [Entitic vol] 9.7 fL Normal 6.2-12.0 [facility] Comment on above: Performed By: #### L 300.4310, L300.8000, L504.2610, L300.3900, L503.6550 #### [facility] [address] [place], [address] Platelets (Bld) [#/Vol] 229 10*3/uL Normal 150-450 [facility] Comment on above: Performed By: #### L 300.4310, L300.8000, L504.2610, L300.3900, L503.6550 #### [facility] [address] [place], [address] RBC (Bld) [#/Vol] 5.32 10*6/uL Normal 4.2-5.4 [facility] Comment on above: Performed By: #### L 300.4310, L300.8000, L504.2610, L300.3900, L503.6550 #### [facility] [address] [place], [address] RDW SD 46.8 fl High 35.1-43.9 [facility] Comment on above: Performed By: #### L 300.4310, L300.8000, L504.2610, L300.3900, L503.6550 #### [facility] [address] [place], [address] WBC (Bld) [#/Vol] 8.8 10*3/uL Normal 4.4-11.0 [facility] Comment on above: Performed By: #### L 300.4310, L300.8000, L504.2610, L300.3900, L503.6550 #### [facility] [address] [place], [address] CRPon 06-08-2025 C-REACTIVE PROT 4.24 mg/L High 0.0-3.0 [facility] Comment on above: Performed By: #### L 300.4310, L300.8000, L504.2610, L300.3900, L503.6550 #### [facility] [address] [place], [address] Carbon dioxide, total [Moles /volume] in Central venous bloodOrdered By: Rudy Ortiz on 06-08-2025 CO2 [Moles/Vol] 20.9 mmol/L Low 21.0-32.0 [facility] Chloride assayOrdered By: Sailaja Ortiz on 06-08-2025 Chloride [Moles/Vol] 105 mmol/L 98-108 [facility] Comprehensive Metabolic Prof ilon 06-08-2025 Albumin [Mass/Vol] 4.3 g/dL Normal 3.4-4.8 [facility] Comment on above: Performed By: #### L 300.4310, L300.8000, L504.2610, L300.3900, L503.6550 #### [facility] [address] [place], [address] Albumin/Globulin [Mass ratio] 1.6 {ratio} Normal 0.9-2.4 [facility] Comment on above: Performed By: #### L 300.4310, L300.8000, L504.2610, L300.3900, L503.6550 #### [facility] [address] [place], [address] ALK PHOS 85 U/L Normal 35-104 [facility] Comment on above: Performed By: #### L 300.4310, L300.8000, L504.2610, L300.3900, L503.6550 #### [facility] [address] [place], [address] ALT [Catalytic activity/Vol] 31 U/L Normal <=34 [facility] Comment on above: Performed By: #### L 300.4310, L300.8000, L504.2610, L300.3900, L503.6550 #### [facility] [address] [place], [address] AST [Catalytic activity/Vol] 22 U/L Normal <=31 [facility] Comment on above: Performed By: #### L 300.4310, L300.8000, L504.2610, L300.3900, L503.6550 #### [facility] [address] [place], [address] Bilirubin [Mass/Vol] 0.29 mg/dL Normal 0.00-1.30 [facility] Comment on above: Performed By: #### L 300.4310, L300.8000, L504.2610, L300.3900, L503.6550 #### [facility] [address] [place], [address] BUN/CRE 23.2 RATIO High 10-20 [facility] Comment on above: Performed By: #### L 300.4310, L300.8000, L504.2610, L300.3900, L503.6550 #### [facility] [address] [place], [address] Calcium [Mass/Vol] 9.6 mg/dL Normal 7.6-11.0 [facility] Comment on above: Performed By: #### L 300.4310, L300.8000, L504.2610, L300.3900, L503.6550 #### [facility] [address] [place], [address] Chloride [Moles/Vol] 105 mmol/L Normal 98-108 [facility] Comment on above: Performed By: #### L 300.4310, L300.8000, L504.2610, L300.3900, L503.6550 #### [facility] [address] [place], [address] CO2 [Moles/Vol] 20.9 mmol/L Low 21.0-32.0 [facility] Comment on above: Performed By: #### L 300.4310, L300.8000, L504.2610, L300.3900, L503.6550 #### [facility] [address] [place], [address] Creatinine [Mass/Vol] 0.81 mg/dL Normal 0.70-1.20 [facility] Comment on above: Performed By: #### L 300.4310, L300.8000, L504.2610, L300.3900, L503.6550 #### [facility] [address] [place], [address] GAP 14 Normal 5-15 [facility] Comment on above: Performed By: #### L 300.4310, L300.8000, L504.2610, L300.3900, L503.6550 #### [facility] [address] [place], [address] GFR/1.73 sq M.predicted among non-blacks MDRD (S/P/Bld) [Vol rate/Area] 77 mL/min/{1.73_m2} Normal >60 [facility] Comment on above: Result Comment: mL/m in/1.73m2 CKD-EPI Creatinine Equation (2020) Performed By: #### L 300.4310, L300.8000, L504.2610, L300.3900, L503.6550 #### [facility] [address] [place], [address] Globulin (S) [Mass/Vol] 2.8 g/dL Normal 2.2-4.2 [facility] Comment on above: Performed By: #### L 300.4310, L300.8000, L504.2610, L300.3900, L503.6550 #### [facility] [address] [place], [address] Glucose [Mass/Vol] 103 mg/dL High 70-99 [facility] Comment on above: Performed By: #### L 300.4310, L300.8000, L504.2610, L300.3900, L503.6550 #### [facility] [address] [place], [address] Potassium [Moles/Vol] 3.9 mmol/L Normal 3.3-5.1 [facility] Comment on above: Performed By: #### L 300.4310, L300.8000, L504.2610, L300.3900, L503.6550 #### [facility] [address] [place], [address] Sodium [Moles/Vol] 139 mmol/L Normal 133-145 [facility] Comment on above: Performed By: #### L 300.4310, L300.8000, L504.2610, L300.3900, L503.6550 #### [facility] [address] [place], [address] T PROT 7.1 g/dL Normal 5.9-8.4 [facility] Comment on above: Performed By: #### L 300.4310, L300.8000, L504.2610, L300.3900, L503.6550 #### [facility] [address] [place], [address] Urea nitrogen [Mass/Vol] 19 mg/dL Normal 4-19 [facility] Comment on above: Performed By: #### L 300.4310, L300.8000, L504.2610, L300.3900, L503.6550 #### [facility] [address] [place], [address] D-Dimer Quantitative (DVT/PE )on 06-08-2025 D-DIMER QUANT 0.27 FEU/ug/m Normal 0.27-0.49 [facility] Comment on above: Result Comment: NORM AL D-Dimer level (<0.50) indicates no DVT or PE. Performed By: #### L 300.4310, L300.8000, L504.2610, L300.3900, L503.6550 #### [facility] [address] [place], [address] Eosinophil percentageOrdered By: Rudy Ortiz on 06-08-2025 Eosinophils/100 WBC (Bld) 2.7 % 0-5 [facility] Erythrocyte Sed Rateon 06-08 SED RATE 13 mm/hr Normal 0-30 [facility] Comment on above: Performed By: #### L 3410.9992 #### [facility] [address] [place], [place], [address] Erythrocyte distribution wid th ratioOrdered By: Rudy Ortiz on 06-08-2025 Erythrocyte distribution width (RBC) [Ratio] 14.1 % 11.6-14.6 [facility] Erythrocyte distribution wid th standard deviationOrdered By: Rudy Ortiz on 06-08-2025 Erythrocyte distribution width (RBC) [Ratio] 46.8 fl High 35.1-43.9 [facility] Erythrocyte sedimentation ra teOrdered By: Rudy Ortiz on 06-08-2025 ESR (Bld) [Velocity] 13 mm/h 0-30 [facility] Ferritinon 06-08-2025 Ferritin [Mass/Vol] 155 ng/mL Normal 22-378 [facility] Comment on above: Performed By: #### L 300.4310, L300.8000, L504.2610, L300.3900, L503.6550 #### [facility] [address] [place], [place], [address] Glomerular filtration rate ( GFR) estimation/1.73 sq m using serum, plasma, or whole bOrdered By: [facility] on 06-08-2025 GFR/1.73 sq M.predicted among non-blacks MDRD (S/P/Bld) [Vol rate/Area] 77 mL/min/{1.73_m2} >60 [facility] Comment on above: mL/min/1.73m2 CKD-EP I Creatinine Equation (2020) Hematocrit Auto (Bld) [Volum e fraction]Ordered By: Rudy Ortiz on 06-08-2025 Hematocrit (Bld) [Volume fraction] 48.0 % High 37-47 [facility] Hemoglobin measurementOrdere d By: Rudy Ortiz on 06-08-2025 Hemoglobin (Bld) [Mass/Vol] 16.8 g/dL High 12.0-15.0 [facility] Immature granulocytes/100 WB C Auto (Bld)Ordered By: Rudy Ortiz on 06-08-2025 Immature granulocytes/100 WBC (Bld) 0.300 % 0.0-0.9 [facility] Comment on above: IG% - Immature Granu locytes (promyelocytes, myelocytes and metamyelocytes) > 1% indicates that a LEFT SHIFT is Present. International normalized rat io (INR) calculationOrdered By: Rudy Angel on 06-08-2025 INR Coag (Bld) [Relative time] 1.0 {INR} [facility] Iron measurement (mass/mass) Ordered By: Rudy Ortiz on 06-08-2025 Iron (Unsp spec) [Mass/Mass] 91 ug/dL 50-170 [facility] Iron+Iron Binding Capacityon 06-08-2025 Iron [Mass/Vol] 91 ug/dL Normal 50-170 [facility] Comment on above: Performed By: #### L 300.4310, L300.8000, L504.2610, L300.3900, L503.6550 #### [facility] [address] [place], [address] IRON SATURATION 26.0 Normal 13-59 [facility] Comment on above: Performed By: #### L 300.4310, L300.8000, L504.2610, L300.3900, L503.6550 #### [facility] [address] [place], [address] TIBC 353 ug/dL Normal 250-450 [facility] Comment on above: Performed By: #### L 300.4310, L300.8000, L504.2610, L300.3900, L503.6550 #### [facility] [address] [place], [address] UIBC 262 ug/dL Normal 228-428 [facility] Comment on above: Performed By: #### L 300.4310, L300.8000, L504.2610, L300.3900, L503.6550 #### [facility] [address] [facility] [address] L9999.0020on 06-08-2025 COHb Order ORDER TUBE Normal [facility] Comment on above: Performed By: #### L 300.4310, L300.8000, L504.2610, L300.3900, L503.6550 #### [facility] [address] [place], [address] LDHon 06-08-2025 LDH 175 U/L Normal 84-246 [facility] Comment on above: Order Comment: 1 Result Comment: Hemo lysis present, Results??could be affected. ?? Performed By: #### L 300.4310, L300.8000, L504.2610, L300.3900, L503.6550 #### [facility] [address] [place], [address] Laboratory - Chemistry and C hemistry - challengeOrdered By: Rudy Ortiz on 06-08-2025 AST [Catalytic activity/Vol] 22 U/L <32 [facility] - Specimen inform ationOrdered By: Rudy Ortiz on 06-08-2025 Number of specimens obtained (Unsp spec) [#] ORDER TUBE [facility] Lactate dehydrogenase (LDH) measurementOrdered By: Rudy Ortiz on 06-08-2025 LDH [Catalytic activity/Vol] 175 U/L 84-246 [facility] Comment on above: Hemolysis present, R esults could be affected. MCV (mean corpuscular volume ) determinationOrdered By: Rudy Ortiz on 06-08-2025 MCV (RBC) [Entitic vol] 90.2 fL 81-99 [facility] Mean corpuscular hemoglobin (MCH) determinationOrdered By: Rudy Ortiz on 06-08-2025 MCH (RBC) [Entitic mass] 31.6 pg 27.0-32.0 [facility] Mean corpuscular hemoglobin concentration (MCHC) determinationOrdered By: Rudy Ortiz on 06-08-2025 MCHC (RBC) [Mass/Vol] 35.0 g/dL 32-36 [facility] Mean platelet volume determi nationOrdered By: Rudy Ortiz on 06-08-2025 Platelet mean volume (Bld) [Entitic vol] 9.7 fL 6.2-12.0 [facility] Monocyte percentageOrdered B y: Rudy Ortiz on 06-08-2025 Monocytes/100 WBC (Bld) 11.1 % High 0-10 [facility] Neutrophil percentageOrdered By: Rudy Ortiz on 06-08-2025 Neutrophils/100 WBC (Bld) 66.5 % 47-70 [facility] No Panel InformationOrdered By: Rudy Ortiz on 06-08-2025 Unsaturated Iron Binding Capacity 262 ug/dL 228-428 [facility] Nucleated red blood cell per centageOrdered By: Rudy Ortiz on 06-08-2025 Nucleated RBC/100 WBC (Bld) [Ratio] 0 % 0-5 [facility] Oncology Visit Reporton 05-23 Oncology Visit Report [facility] [address] [place] [address] OFFICE VISIT Date of Service: 06/08/25 1521 MR#: [id number] Acct: [id number] Name: PARVIZ TRACY Rep #: [id number] 4 : 1950 From: Rudy Ortiz MD Age/Sex: 75/F [place] [facility] [place]: Signed HPI Subjective Date of Service [...] MPL done and comes for follow up. [facility] Medical History Hypertension Hand pain, right [...] PO DAILY 02/17/24 06/08/25 H istory vitamins A,C,I-xijk-accezf 2,148 1 tab PO BID 02/17/24 06/08/25 [...] exon 1 (more content not included)... Normal [facility] Partial Thromboplast Timeon 06-08-2025 aPTT Coag (Bld) [Time] 27.8 s Normal 24.1-36.2 [facility] Comment on above: Performed By: #### L 300.4310, L300.8000, L504.2610, L300.3900, L503.6550 #### [facility] [address] [place], [address] Platelet countOrdered By: Sailaja Ortiz on 06-08-2025 Platelets (Bld) [#/Vol] 229 10*3/uL 150-450 [facility] Potassium measurement (mass/ volume)Ordered By: Rudy Ortiz on 06-08-2025 Potassium (Unsp spec) [Mass/Vol] 3.9 mmol/L 3.3-5.1 [facility] Prothrombin Time w/INRon INR Coag (PPP) [Relative time] 1.0 {INR} Normal [facility] Comment on above: Performed By: #### L 300.4310, L300.8000, L504.2610, L300.3900, L503.6550 #### [facility] [address] [place], [address] PT Coag (PPP) [Time] 13.7 s Normal 11.7-14.9 [facility] Comment on above: Performed By: #### L 300.4310, L300.8000, L504.2610, L300.3900, L503.6550 #### [facility] [address] [place], [address] Prothrombin timeOrdered By: Rudy Ortiz on 06-08-2025 PT Coag (PPP) [Time] 13.7 s 11.7-14.9 [facility] RBC Auto (Bld) [#/Vol]Ordere d By: Rudy Ortiz on 06-08-2025 RBC (Bld) [#/Vol] 5.32 10*6/uL 4.2-5.4 [facility] Retic Panelon 06-08-2025 IM RET FRACTION 5.50 Normal 3.00-15.90 [facility] Comment on above: Performed By: #### L 300.4310, L300.8000, L504.2610, L300.3900, L503.6550 #### [facility] [address] [place], [address] RET-HE 33.1 pg Normal 30-35 [facility] Comment on above: Performed By: #### L 300.4310, L300.8000, L504.2610, L300.3900, L503.6550 #### [facility] [address] [place], [address] Retic Count 1.51 High 0.5-1.5 [facility] Comment on above: Performed By: #### L 300.4310, L300.8000, L504.2610, L300.3900, L503.6550 #### [facility] [address] [place], [address] Reticulocyte hemoglobin equi valent (RET-He) measurementOrdered By: Rudy Ortiz on 06-08-2025 Hemoglobin (Reticulocytes) [Entitic mass] 33.1 pg 30-35 [facility] Reticulocytes Auto (Bld) [#/ Vol]Ordered By: uRdy Ortiz on 06-08-2025 Reticulocytes/100 RBC (Bld) 1.51 % High 0.5-1.5 [facility] Serum creatinine measurement (mass/volume)Ordered By: Rudy Ortiz on 06-08-2025 Creatinine [Mass/Vol] 0.81 mg/dL 0.70-1.20 [facility] Serum globulin measurementOr dered By: Rudy Ortiz on 06-08-2025 Globulin (S) [Mass/Vol] 2.8 g/dL 2.2-4.2 [facility] Serum glucose measurement (m ass/volume)Ordered By: Rudy Ortiz on 06-08-2025 Glucose [Mass/Vol] 103 mg/dL High 70-99 [facility] Serum or plasma C reactive p rotein measurement (mass/volume)Ordered By: Rudy Ortiz on 06-08-2025 CRP [Mass/Vol] 4.24 mg/L High 0.0-3.0 [facility] Serum or plasma alanine patel otransferase (ALT) measurementOrdered By: Rudy Ortiz on 06-08-2025 ALT [Catalytic activity/Vol] 31 U/L <35 [facility] Serum or plasma albumin natalio urement (mass/volume)Ordered By: Rudy Ortiz on 06-08-2025 Albumin [Mass/Vol] 4.3 g/dL 3.4-4.8 [facility] Serum or plasma albumin/glob ulin mass ratioOrdered By: Rudy Ortiz on 06-08-2025 Albumin/Globulin [Mass ratio] 1.6 {ratio} 0.9-2.4 [facility] Serum or plasma alkaline angela sphatase measurementOrdered By: Rudy Ortiz on 06-08-2025 ALP [Catalytic activity/Vol] 85 U/L 35-104 [facility] Serum or plasma calcium natalio urement (mass/volume)Ordered By: Rudy Ortiz on 06-08-2025 Calcium [Mass/Vol] 9.6 mg/dL 7.6-11.0 [facility] Serum or plasma erythropoiet in (EPO) measurement (units/volume)Ordered By: Rudy Ortiz on 06-08-2025 Erythropoietin (EPO) Qn 12.8 mIU/mL 2.6-18.5 [facility] Comment on above: [employer] DxI 800 Immunoassay SystemValues obtained with different assay methods or kits cannotbe used interchangeably. Results cannot be interpreted asabsolute evidence of the presence or absence of malignantdisease.Performed at: [employer] [id number] Director: Glenn Martínez PhD, Phone: [phone] Serum or plasma ferritin jhon surement (mass/volume)Ordered By: Rudy Ortiz on 06-08-2025 Ferritin [Mass/Vol] 155 ng/mL 22-378 [facility] Serum or plasma iron saturat ion measurement (mass fraction)Ordered By: Rudy Ortiz on 06-08-2025 Iron saturation [Mass fraction] 26.0 % 13-59 [facility] Serum or plasma urea nitroge n measurement (mass/volume)Ordered By: Rudy Ortiz on 06-08-2025 Urea nitrogen [Mass/Vol] 19 mg/dL 4-19 [facility] Sodium levelOrdered By: Rahul Ortiz on 06-08-2025 Sodium [Moles/Vol] 139 mmol/L 133-145 [facility] Total proteinOrdered By: Mango Ortiz on 06-08-2025 Protein [Mass/Vol] 7.1 g/dL 5.9-8.4 [facility] White blood cell (WBC) count Ordered By: Rudy Ortiz on 06-08-2025 WBC (Bld) [#/Vol] 8.8 10*3/uL 4.4-11.0 [facility] Blood carboxyhemoglobin natalio urement (mass/volume)Ordered By: Rudy Ortiz on 06-03-2025 Carboxyhemoglobin (Bld) [Mass/Vol] 2.4 % High 0.0-1.5 [facility] L511.0135on 06-03-2025 COHb 2.4 High 0.0-1.5 [facility] Comment on above: Order Comment: [id number] 0 JAK2 V671F W REFLEX-LAV WB-RMT Result Comment: ente red incorrectly Performed By: #### L 3410.9992 #### [facility] [address] [place], [address] L3410.9992on 05-29-2025 [facility] Misc. COMMENT Normal . [facility] Comment on above: Order Comment: [id number] 0 JAK2 V671F W REFLEX-LAV WB-RMT Result Comment: Test Ordered: [id number] JAK2 V617F, reflex to E12-15 Test(s) 537853-[id number] V617F Result was developed and its performance [...] Mutation Analysis is indicated. E12-15 Result Comment HOLDEN Reference Range: . NEGATIVE JAK2 mutations were [...] BM, leukocytosis, increasing spleen size, and circulating MT49-wniooqlb cells. Limitations This assay has a sensitivity of approximately 1% VAF for JAK2 V617F, and 2.5% VAF for other mutations in JAK2 exons 12 to 15. Deletions in JAK2 up to 6 bp and insertions up to 34 bp have been detected in validation studies. Method Comment Reference Range: . Amplicon-based next generation sequencing. References Comment Reference Range: . Zoshrojas N, Aldulcei Y, Abalkhjake H, Pepper S. Detection of mutations in JAK2 exons 12-15 by [place] sequencing. Int J Lab Hematol. 2016 Dec;38(1):34-41. doi: 10.1111/ijlh.76127. Epub 2014Aug 03. PMID: 78640305. Nicky DA, Chago A, Go R, Art J, Domi MJ, Amada Kim MM, Ashley CD, Marisol M, Franchesca JW. The 2016 revision to the World Health Organization classification of myeloid neoplasms and acute leukemia. Blood. 2016 April 10;127(20):2391-405. doi: 10.1182/gblwe-4235-32-527684. Epub 2015Mar 03. PMID: 71414680. Nadine W, Emily H, Zach X, Jordi CH, Zach HILL, Richard S, [place] Albright. Mutation profile of JAK2 transcripts in patients with chronic myeloproliferative neoplasias. J Mol Diagn. 2008;11(1):49-53.doi: 10.2353/jmoldx.2009.201364. Epub 2007Nov 03. PMID: 90692153; PMCID: DTH9766812. NCCN Clinical Practice Guidelines in Oncology (NCCN Guidelines) Myeloproliferative Neoplasms Version 3.2021 - July 03, 2022. Mendez SH, scientific publications editor. WHO classification of Tumours of Haematopoietic and Lymphoid Tissues. 4th edn. Guerra, [place]: International Agency for Research on Cancer; 2017. Dianne Ames. Primary myelofibrosis: 2020 update on diagnosis, risk-stratification and management. Am J Hematol. 2020;96(1):145-162. doi: 10.1002/ajh.92679. Epub 2019Oct 24. PMID: 94082682. Crissyinchenker W, Shannan R. Genetic basis and molecular pathophysiology of classical myeloproliferative neoplasms. Blood. 2017 Dec 9;129(6):667-679. doi: 10.1182/nazgv-9116-91-511188. Epub 2015Nov 18. PMID: 94262812. Director Review Comment Reference Range: . Thomas Gilmore, PhD, [facility] Director, Molecular Oncology [facility] [place] [address] Performed at: [facility] [address] [facility], [place] [id number] Lab D (more content not included)... Performed By: #### L 3410.9992 #### [facility] [address] [place], [address] L3410.9994on 05-25-2025 [facility] Misc. 2 COMMENT Normal . [facility] Comment on above: Order Comment: [id number] 0 JAK2 V671F W REFLEX-LAV WB-RMT Result Comment: Test Ordered: [id number] MPL Mutation Analysis MPL Mutation Analysis Result: [...] rare diagnostic errors may occur. References: Comment HOLDEN Reference Range: . 1. Shikha PALMA, et al. (2006). FPR301 mutations in myeloproliferative and other myeloid disorders: a study of 1182 patients. Blood 108:6574-1841. 2. Sofia Dempsey and Wei MILLS. (2008). JAK2 and MPL mutations in myeloproliferative neoplasms: discovery and science. Leukemia 22:1642-2497. 3. Riley GOODSON et al. (2009). Evidence for a auctioneer tobacco effect of the MPL-S505N mutation in eight [place] pedigrees with hereditary thrombocythemia. Haematologica 94(10):1368- 1374. Director Review: Comment HOLDEN Reference Range: . Isamar Gilmore, PhD, [facility] Director, Molecular Oncology [facility] [place] [address] This test was developed and its performance characteristics determined by [facility]. It has not been cleared or approved by the Food and Drug Administration. Performed at: [facility] [address] [facility], [facility] [[email or web address] [place] [id number] Pet Technologist: Jez Nazario [facility], Phone: [phone] Performed at: [facility] [address] [facility] [place] [id number] Pet Technologist: Jez Nazario [facility], Phone: [phone] Performed at: [address] [id number] Pet Technologist: Glenn Martínez PhD, Phone: [phone] Performed By: #### L 3410.9992 #### [facility] [address] [facility], [address] Erythropoietinon 05-22-2025 ERYTHROPOIETIN 14.0 mIU/mL Normal 2.6-18.5 [facility] Comment on above: Result Comment: [employer] DxI 800 Immunoassay System Values obtained with different assay methods or kits cannot be used interchangeably. Results cannot be interpreted as absolute evidence of the presence or absence of malignant disease. Performed at: [address] [id number] Pet Technologist: Glenn Martínez PhD, Phone: [phone] Performed By: #### L 3410.9992 #### [facility] [address] [facility] [place], [address] Absolute lymphocyte countOrd ered By: Rudy Ortiz on 05-18-2025 Lymphocytes Auto (Unsp spec) [#/Vol] 1.81 10*3/uL 0.83-4.51 [facility] Absolute neutrophil countOrd ered By: Rudy Ortiz on 05-18-2025 Neutrophils (Bld) [#/Vol] 5.5 10*3/uL 2.0-7.7 [facility] Anion gap in Serum or Plasma Ordered By: Rudy Ortiz on 05-18-2025 Anion gap [Moles/Vol] 14 mmol/L 5-15 [facility] Automated lymphocyte count a s percentage of total leukocytesOrdered By: Rudy Ortiz on 05-18-2025 Lymphocytes/100 WBC Auto (Unsp spec) 21.0 % 19-41 [facility] BUN/creatinine ratioOrdered By: Rudy Ortiz on 05-18-2025 Urea nitrogen/Creatinine [Mass ratio] 25.2 mg/mg High 10-20 [facility] Basophil percentageOrdered B y: Rudy Ortiz on 05-18-2025 Basophils/100 WBC (Bld) 0.8 % 0-1 [facility] Bilirubin, totalOrdered By: Rudy Ortiz on 05-18-2025 Bilirubin [Mass/Vol] 0.44 mg/dL 0.00-1.30 [facility] Blood carboxyhemoglobin natalio urement (mass/volume)Ordered By: Rudy Ortiz on 05-18-2025 Carboxyhemoglobin (Bld) [Mass/Vol] 2.4 % High 0.0-1.5 [facility] CBC W/Diff, Automatedon 04-24 Absolute Lymph 1.81 X10 3/uL Normal 0.83-4.51 [facility] Comment on above: Performed By: #### L 504.2610, L500.4050, L100.0100 #### [facility] [address] [place], [address] Absolute Neut 5.5 X10 3/uL Normal 2.0-7.7 [facility] Comment on above: Performed By: #### L 504.2610, L500.4050, L100.0100 #### [facility] [address] [place], [address] Basophils/100 WBC (Bld) 0.8 % Normal 0-1 [facility] Comment on above: Performed By: #### L 504.2610, L500.4050, L100.0100 #### [facility] [address] [place], [address] Eosinophils/100 WBC (Bld) 3.6 % Normal 0-5 [facility] Comment on above: Performed By: #### L 504.2610, L500.4050, L100.0100 #### [facility] [address] [place], [address] Erythrocyte distribution width (RBC) [Ratio] 13.8 % Normal 11.6-14.6 [facility] Comment on above: Performed By: #### L 504.2610, L500.4050, L100.0100 #### [facility] [address] [place], [address] Hematocrit (Bld) [Volume fraction] 49.0 % High 37-47 [facility] Comment on above: Performed By: #### L 504.2610, L500.4050, L100.0100 #### [facility] [address] [place], [address] Hemoglobin (Bld) [Mass/Vol] 16.8 g/dL High 12.0-15.0 [facility] Comment on above: Performed By: #### L 504.2610, L500.4050, L100.0100 #### [facility] [address] [place], [address] IG% 0.200 Normal 0.0-0.9 [facility] Comment on above: Result Comment: IG% - Immature Granulocytes (promyelocytes, myelocytes and metamyelocytes) > 1% indicates that a LEFT SHIFT is Present. Performed By: #### L 504.2610, L500.4050, L100.0100 #### [facility] [address] [place], [address] Lymphocytes/100 WBC (Bld) 21.0 % Normal 19-41 [facility] Comment on above: Performed By: #### L 504.2610, L500.4050, L100.0100 #### [facility] [address] [place], [address] MCH (RBC) [Entitic mass] 31.2 pg Normal 27.0-32.0 [facility] Comment on above: Performed By: #### L 504.2610, L500.4050, L100.0100 #### [facility] [address] [place], [address] MCHC (RBC) [Mass/Vol] 34.3 g/dL Normal 32-36 [facility] Comment on above: Performed By: #### L 504.2610, L500.4050, L100.0100 #### [facility] [address] [place], [address] MCV (RBC) [Entitic vol] 90.9 fL Normal 81-99 [facility] Comment on above: Performed By: #### L 504.2610, L500.4050, L100.0100 #### [facility] [address] [place], [address] Monocytes/100 WBC (Bld) 10.2 % High 0-10 [facility] Comment on above: Performed By: #### L 504.2610, L500.4050, L100.0100 #### [facility] [address] [place], [address] Neutrophils/100 WBC (Bld) 64.2 % Normal 47-70 [facility] Comment on above: Performed By: #### L 504.2610, L500.4050, L100.0100 #### [facility] [address] [place], [address] Nucleated RBC (Bld) [#/Vol] 0 10*3/uL Normal 0-5 [facility] Comment on above: Performed By: #### L 504.2610, L500.4050, L100.0100 #### [facility] [address] [place], [address] Platelet mean volume (Bld) [Entitic vol] 9.5 fL Normal 6.2-12.0 [facility] Comment on above: Performed By: #### L 504.2610, L500.4050, L100.0100 #### [facility] [address] [place], [address] Platelets (Bld) [#/Vol] 247 10*3/uL Normal 150-450 [facility] Comment on above: Performed By: #### L 504.2610, L500.4050, L100.0100 #### [facility] [address] [place], [address] RBC (Bld) [#/Vol] 5.39 10*6/uL Normal 4.2-5.4 [facility] Comment on above: Performed By: #### L 504.2610, L500.4050, L100.0100 #### [facility] [address] [place], [address] RDW SD 46.5 fl High 35.1-43.9 [facility] Comment on above: Performed By: #### L 504.2610, L500.4050, L100.0100 #### [facility] [address] [place], [address] WBC (Bld) [#/Vol] 8.6 10*3/uL Normal 4.4-11.0 [facility] Comment on above: Performed By: #### L 504.2610, L500.4050, L100.0100 #### [facility] [address] [place], [address] Carbon dioxide, total [Moles /volume] in Central venous bloodOrdered By: Rudy Ortiz on 05-18-2025 CO2 [Moles/Vol] 20.3 mmol/L Low 21.0-32.0 [facility] Chloride assayOrdered By: Sailaja Ortiz on 05-18-2025 Chloride [Moles/Vol] 104 mmol/L 98-108 [facility] Comprehensive Metabolic Prof ilon 05-18-2025 Albumin [Mass/Vol] 4.3 g/dL Normal 3.4-4.8 [facility] Comment on above: Performed By: #### L 504.2610, L500.4050, L100.0100 #### [facility] [address] [place], [address] Albumin/Globulin [Mass ratio] 1.6 {ratio} Normal 0.9-2.4 [facility] Comment on above: Performed By: #### L 504.2610, L500.4050, L100.0100 #### [facility] [address] [place], [address] ALK PHOS 86 U/L Normal 35-104 [facility] Comment on above: Performed By: #### L 504.2610, L500.4050, L100.0100 #### [facility] [address] [place], [address] ALT [Catalytic activity/Vol] 26 U/L Normal <=34 [facility] Comment on above: Performed By: #### L 504.2610, L500.4050, L100.0100 #### [facility] [address] [place], [address] AST [Catalytic activity/Vol] 21 U/L Normal <=31 [facility] Comment on above: Performed By: #### L 504.2610, L500.4050, L100.0100 #### [facility] [address] [place], [address] Bilirubin [Mass/Vol] 0.44 mg/dL Normal 0.00-1.30 [facility] Comment on above: Performed By: #### L 504.2610, L500.4050, L100.0100 #### [facility] [address] [place], [address] BUN/CRE 25.2 RATIO High 10-20 [facility] Comment on above: Performed By: #### L 504.2610, L500.4050, L100.0100 #### [facility] [address] [place], [address] Calcium [Mass/Vol] 9.7 mg/dL Normal 7.6-11.0 [facility] Comment on above: Performed By: #### L 504.2610, L500.4050, L100.0100 #### [facility] [address] [place], [address] Chloride [Moles/Vol] 104 mmol/L Normal 98-108 [facility] Comment on above: Performed By: #### L 504.2610, L500.4050, L100.0100 #### [facility] [address] [place], [address] CO2 [Moles/Vol] 20.3 mmol/L Low 21.0-32.0 [facility] Comment on above: Performed By: #### L 504.2610, L500.4050, L100.0100 #### [facility] [address] [place], [address] Creatinine [Mass/Vol] 0.78 mg/dL Normal 0.70-1.20 [facility] Comment on above: Performed By: #### L 504.2610, L500.4050, L100.0100 #### [facility] [address] [place], [address] GAP 14 Normal 5-15 [facility] Comment on above: Performed By: #### L 504.2610, L500.4050, L100.0100 #### [facility] [address] [place], [address] GFR/1.73 sq M.predicted among non-blacks MDRD (S/P/Bld) [Vol rate/Area] 81 mL/min/{1.73_m2} Normal >60 [facility] Comment on above: Result Comment: mL/m in/1.73m2 CKD-EPI Creatinine Equation (2020) Performed By: #### L 504.2610, L500.4050, L100.0100 #### [facility] [address] [place], [address] Globulin (S) [Mass/Vol] 2.8 g/dL Normal 2.2-4.2 [facility] Comment on above: Performed By: #### L 504.2610, L500.4050, L100.0100 #### [facility] [address] [place], [address] Glucose [Mass/Vol] 108 mg/dL High 70-99 [facility] Comment on above: Performed By: #### L 504.2610, L500.4050, L100.0100 #### [facility] [address] [place], [address] Potassium [Moles/Vol] 4.1 mmol/L Normal 3.3-5.1 [facility] Comment on above: Performed By: #### L 504.2610, L500.4050, L100.0100 #### [facility] [address] [place], [address] Sodium [Moles/Vol] 138 mmol/L Normal 133-145 [facility] Comment on above: Performed By: #### L 504.2610, L500.4050, L100.0100 #### [facility] [address] [place], [address] T PROT 7.0 g/dL Normal 5.9-8.4 [facility] Comment on above: Performed By: #### L 504.2610, L500.4050, L100.0100 #### [facility] [address] [place], [address] Urea nitrogen [Mass/Vol] 20 mg/dL High 4-19 [facility] Comment on above: Performed By: #### L 504.2610, L500.4050, L100.0100 #### [facility] [address] [place], [address] Eosinophil percentageOrdered By: [facility] on 05-18-2025 Eosinophils/100 WBC (Bld) 3.6 % 0-5 [facility] Erythrocyte distribution wid th ratioOrdered By: [facility] on 05-18-2025 Erythrocyte distribution width (RBC) [Ratio] 13.8 % 11.6-14.6 [facility] Erythrocyte distribution wid th standard deviationOrdered By: [facility] on 05-18-2025 Erythrocyte distribution width (RBC) [Ratio] 46.5 fl High 35.1-43.9 [facility] Glomerular filtration rate ( GFR) estimation/1.73 sq m using serum, plasma, or whole bOrdered By: [facility] on 05-18-2025 GFR/1.73 sq M.predicted among non-blacks MDRD (S/P/Bld) [Vol rate/Area] 81 mL/min/{1.73_m2} >60 [facility] Comment on above: mL/min/1.73m2 CKD-EP I Creatinine Equation (2020) Hematocrit Auto (Bld) [Volum e fraction]Ordered By: [facility] on 05-18-2025 Hematocrit (Bld) [Volume fraction] 49.0 % High 37-47 [facility] Hemoglobin measurementOrdere d By: [facility] on 05-18-2025 Hemoglobin (Bld) [Mass/Vol] 16.8 g/dL High 12.0-15.0 [facility] Immature granulocytes/100 WB C Auto (Bld)Ordered By: [facility] on 05-18-2025 Immature granulocytes/100 WBC (Bld) 0.200 % 0.0-0.9 [facility] Comment on above: IG% - Immature Granu locytes (promyelocytes, myelocytes and metamyelocytes) > 1% indicates that a LEFT SHIFT is Present. L9999.0020on 05-18-2025 COHb Order 2.4 Normal [facility] Comment on above: Result Comment: AMENDED REPORT 05/18/25 9490 COHb Order previously reported as: ORDER TUBE Performed By: #### L 3410.9992 #### [facility] [address] [place], [address] LDHon 05-18-2025 LDH 166 U/L Normal 84-246 [facility] Comment on above: Order Comment: 1 Performed By: #### L 504.2610, L500.4050, L100.0100 #### [facility] [address] [place], [address] Laboratory - Chemistry and C hemistry - challengeOrdered By: Rudy Ortiz on 05-18-2025 AST [Catalytic activity/Vol] 21 U/L <32 [facility] Laboratory - Specimen inform ationOrdered By: Rudy Ortiz on 05-18-2025 Number of specimens obtained (Unsp spec) [#] 2.4 [facility] Comment on above: Previous reported re sult: ORDER TUBE Edited by: VITOR on 05/18/25:1754 AMENDED REPORT 05/18/25 175 COHb Order previously reported as: ORDER TUBE Lactate dehydrogenase (LDH) measurementOrdered By: Rudy Ortiz on 05-18-2025 LDH [Catalytic activity/Vol] 166 U/L 84-246 [facility] MCV (mean corpuscular volume ) determinationOrdered By: Rudy Ortiz on 05-18-2025 MCV (RBC) [Entitic vol] 90.9 fL 81-99 [facility] Mean corpuscular hemoglobin (MCH) determinationOrdered By: Rudy Ortiz on 05-18-2025 MCH (RBC) [Entitic mass] 31.2 pg 27.0-32.0 [facility] Mean corpuscular hemoglobin concentration (MCHC) determinationOrdered By: Rudy Ortiz on 05-18-2025 MCHC (RBC) [Mass/Vol] 34.3 g/dL 32-36 [facility] Mean platelet volume determi nationOrdered By: Rudy Ortzi on 05-18-2025 Platelet mean volume (Bld) [Entitic vol] 9.5 fL 6.2-12.0 [facility] Monocyte percentageOrdered B y: Rudy Ortiz on 05-18-2025 Monocytes/100 WBC (Bld) 10.2 % High 0-10 [facility] Neutrophil percentageOrdered By: Rudy Ortiz on 05-18-2025 Neutrophils/100 WBC (Bld) 64.2 % 47-70 [facility] Nucleated red blood cell per centageOrdered By: Rudy Ortiz on 05-18-2025 Nucleated RBC/100 WBC (Bld) [Ratio] 0 % 0-5 [facility] Oncology Visit Reporton 04-24 Oncology Visit Report [facility] [place] [address] [place] [address] OFFICE VISIT Date of Service: 05/18/25 1535 MR#: [id number] Acct: [id number] Name: PARVIZ TRACY Rep #: [id number] : 1950 From: Rudy Ortiz MD Age/Sex: 75/F [place] [facility] [place] Status: Signed HPI Subjective Date of Service 05/18/25 Chief Complaint Referred for evaluation of polycythemia. History of Present Illness 75-year-old woman has had mild polycythemia since 2014. She had JAK2 V6 17F done on 03/18/2023 which was negative. Erythropoietin level at that time was 13.8. Recently hemoglobin has been persistently above normal so referred for further evaluation. She denies smoking, drinking alcohol. [facility] Medical History Hypertension Hand pain, right [...] 05/18/25 Rx (more content not included)... Normal [facility] Platelet countOrdered By: Sailaja Ortiz on 05-18-2025 Platelets (Bld) [#/Vol] 247 10*3/uL 150-450 [facility] Potassium measurement (mass/ volume)Ordered By: Rudy Ortiz on 05-18-2025 Potassium (Unsp spec) [Mass/Vol] 4.1 mmol/L 3.3-5.1 [facility] RBC Auto (Bld) [#/Vol]Ordere d By: Rudy Ortiz on 05-18-2025 RBC (Bld) [#/Vol] 5.39 10*6/uL 4.2-5.4 [facility] Serum creatinine measurement (mass/volume)Ordered By: Rudy Ortiz on 05-18-2025 Creatinine [Mass/Vol] 0.78 mg/dL 0.70-1.20 [facility] Serum globulin measurementOr dered By: Rudy Ortiz on 05-18-2025 Globulin (S) [Mass/Vol] 2.8 g/dL 2.2-4.2 [facility] Serum glucose measurement (m ass/volume)Ordered By: Rudy Ortiz on 05-18-2025 Glucose [Mass/Vol] 108 mg/dL High 70-99 [facility] Serum or plasma alanine patel otransferase (ALT) measurementOrdered By: Rudy Ortiz on 05-18-2025 ALT [Catalytic activity/Vol] 26 U/L <35 [facility] Serum or plasma albumin natalio urement (mass/volume)Ordered By: Rudy Ortiz on 05-18-2025 Albumin [Mass/Vol] 4.3 g/dL 3.4-4.8 [facility] Serum or plasma albumin/glob ulin mass ratioOrdered By: Rudy Ortiz on 05-18-2025 Albumin/Globulin [Mass ratio] 1.6 {ratio} 0.9-2.4 [facility] Serum or plasma alkaline angela sphatase measurementOrdered By: Rudy Ortiz on 05-18-2025 ALP [Catalytic activity/Vol] 86 U/L 35-104 [facility] Serum or plasma calcium natalio urement (mass/volume)Ordered By: Rudy Ortiz on 05-18-2025 Calcium [Mass/Vol] 9.7 mg/dL 7.6-11.0 [facility] Serum or plasma erythropoiet in (EPO) measurement (units/volume)Ordered By: Rudy Ortiz on 05-18-2025 Erythropoietin (EPO) Qn 14.0 mIU/mL 2.6-18.5 [facility] Comment on above: [place] DxI 800 Immunoassay SystemValues obtained with different assay methods or kits cannotbe used interchangeably. Results cannot be interpreted asabsolute evidence of the presence or absence of malignantdisease.Performed at: [facility] [place] [id number] Director: Glenn Martínez PhD, Phone: [phone] Serum or plasma urea nitroge n measurement (mass/volume)Ordered By: Rudy Ortiz on 05-18-2025 Urea nitrogen [Mass/Vol] 20 mg/dL High 4-19 [facility] Sodium levelOrdered By: Rahul Ortiz on 05-18-2025 Sodium [Moles/Vol] 138 mmol/L 133-145 [facility] Total proteinOrdered By: Mango Ortiz on 05-18-2025 Protein [Mass/Vol] 7.0 g/dL 5.9-8.4 [facility] White blood cell (WBC) count Ordered By: Rudy Ortiz on 05-18-2025 WBC (Bld) [#/Vol] 8.6 10*3/uL 4.4-11.0 [facility] Stress Reporton 04-11-2025 Stress Report [facility] [address] [place] [address] MR#: [id number] Acct: [id number] Name: PARVIZ TRACY Rep #: [id number] : 1950 75 From: Ritesh Meraz MD Primary Care: Dr. Farnaz Simon MD Status: REG CLI Referring Dr: Sindi Roa NP BACKHOE OPERATOR-C Sex: F C Stress Test Report Pharmacologic [...] fraction. 04/11/251746 Date Ritesh Meraz MD CC: BACKHOE OPERATOR-C Sindi Roa; Dr. Farnaz Simon MD Date Dictated: 04/11/251745 Date Transcribed: 04/11/251745 Dining Car Waiter/Waitress: [place] Signed Normal [facility] .Auto Diffon 03-20-2025 Basophil, Absolute 0.1 10 3/mcL Normal 0.0-0.3 [facility] Comment on above: Performed By: #### P BNP, ADIFF, CBC, GFR, LIPID, CMP, TSH, ANEU #### [address] [address] Basophils/100 WBC (Bld) 1.0 % Normal 0.0-2.[address] [facility] Comment on above: Performed By: #### P BNP, ADIFF, CBC, GFR, LIPID, CMP, TSH, ANEU #### [address] [address] Eosinophil, Absolute 0.3 10 3/mcL Normal 0.0-0.7 [facility] Comment on above: Performed By: #### P BNP, ADIFF, CBC, GFR, LIPID, CMP, TSH, ANEU #### [address] [address] Eosinophils/100 WBC (Bld) 3.0 % Normal 0.0-6.[address] [facility] Comment on above: Performed By: #### P BNP, ADIFF, CBC, GFR, LIPID, CMP, TSH, ANEU #### [address] [address] Lymphocyte, Absolute 1.7 10 3/mcL Normal 0.9-4.3 [facility] Comment on above: Performed By: #### P BNP, ADIFF, CBC, GFR, LIPID, CMP, TSH, ANEU #### [address] [address] Lymphocytes/100 WBC (Bld) 19.4 % Low 20.0-40.[address] [facility] Comment on above: Performed By: #### P BNP, ADIFF, CBC, GFR, LIPID, CMP, TSH, ANEU #### [address] [address] Monocyte, Absolute 0.9 10 3/mcL Normal 0.1-1.4 [facility] Comment on above: Performed By: #### P BNP, ADIFF, CBC, GFR, LIPID, CMP, TSH, ANEU #### [address] [address] Monocytes/100 WBC (Bld) 10.0 % Normal 2.0-13.[address] [facility] Comment on above: Performed By: #### P BNP, ADIFF, CBC, GFR, LIPID, CMP, TSH, ANEU #### [address] [address] Neutrophils/100 WBC (Bld) 66.6 % Normal 50.0-75.[address] [facility] Comment on above: Performed By: #### P BNP, ADIFF, CBC, GFR, LIPID, CMP, TSH, ANEU #### [address] [address] .GFRon 03-20-2025 Estimated Glomerular Filtration Rate 79 ml/min/1.73sqm Normal [facility] Comment on above: Result Comment: Stages of [...] CBC, GFR, LIPID, CMP, TSH, ANEU #### [address] [address] .NEUABSon 03-20-2025 Neutrophil, Absolute 5.9 10 3/mcL Normal 2.3-8.1 [facility] Comment on above: Performed By: #### P BNP, ADIFF, CBC, GFR, LIPID, CMP, TSH, ANEU #### [address] [address] CBCon 03-20-2025 Erythrocyte distribution width (RBC) [Ratio] 14.3 % Normal 11.5-15.[address] [facility] Comment on above: Performed By: #### P BNP, ADIFF, CBC, GFR, LIPID, CMP, TSH, ANEU #### [place] [address] Hematocrit (Bld) [Volume fraction] 50.0 % High 34.0-46.[address] [facility] Comment on above: Performed By: #### P BNP, ADIFF, CBC, GFR, LIPID, CMP, TSH, ANEU #### [place] [address] Hgb 17.0 G/dL High 12.0-16.[address] [facility] Comment on above: Performed By: #### P BNP, ADIFF, CBC, GFR, LIPID, CMP, TSH, ANEU #### [place] [address] MCH (RBC) [Entitic mass] 31.3 pg Normal 27.0-33.[address] [facility] Comment on above: Performed By: #### P BNP, ADIFF, CBC, GFR, LIPID, CMP, TSH, ANEU #### [place] [address] MCHC 34.0 G/dL Normal 32.0-36.[address] [facility] Comment on above: Performed By: #### P BNP, ADIFF, CBC, GFR, LIPID, CMP, TSH, ANEU #### [place] [address] MCV (RBC) [Entitic vol] 92.0 fL Normal 80.0-99.[address] [facility] Comment on above: Performed By: #### P BNP, ADIFF, CBC, GFR, LIPID, CMP, TSH, ANEU #### [place] [address] Platelet 237 10 3/mcL Normal 150-[address] [facility] Comment on above: Performed By: #### P BNP, ADIFF, CBC, GFR, LIPID, CMP, TSH, ANEU #### [place] [address] Platelet mean volume (Bld) [Entitic vol] 7.7 fL Normal 6.6-10.[address] [facility] Comment on above: Performed By: #### P BNP, ADIFF, CBC, GFR, LIPID, CMP, TSH, ANEU #### [address] [address] RBC 5.43 10 6/mcL High 4.10-5.[address] [facility] Comment on above: Performed By: #### P BNP, ADIFF, CBC, GFR, LIPID, CMP, TSH, ANEU #### [address] [address] WBC 8.9 10 3/mcL Normal 4.5-10.[address] [facility] Comment on above: Performed By: #### P BNP, ADIFF, CBC, GFR, LIPID, CMP, TSH, ANEU #### [place] [id number] CMPon 03-20-2025 Albumin Level 3.8 G/dL Normal 3.4-4.[address] [facility] Comment on above: Performed By: #### P BNP, ADIFF, CBC, GFR, LIPID, CMP, TSH, ANEU #### [address] [address] Albumin/Globulin [Mass ratio] 1.1 {ratio} Normal 1.1-2.[address] [facility] Comment on above: Performed By: #### P BNP, ADIFF, CBC, GFR, LIPID, CMP, TSH, ANEU #### [address] [address] ALP [Catalytic activity/Vol] 98 U/L Normal 40-[address] [facility] Comment on above: Performed By: #### P BNP, ADIFF, CBC, GFR, LIPID, CMP, TSH, ANEU #### [address] [address] ALT [Catalytic activity/Vol] 35 U/L Normal 14-[address] [facility] Comment on above: Performed By: #### P BNP, ADIFF, CBC, GFR, LIPID, CMP, TSH, ANEU #### [address] [address] AST [Catalytic activity/Vol] 15 U/L Normal 10-[address] [facility] Comment on above: Performed By: #### P BNP, ADIFF, CBC, GFR, LIPID, CMP, TSH, ANEU #### [address] [address] Bili Total 0.6 mg/dL Normal 0.2-1.[address] [facility] Comment on above: Result Comment: Use of this assay is not recommended for patients undergoing treatment with eltrombopag due to the potential for falsely elevated results. Performed By: #### P BNP, ADIFF, CBC, GFR, LIPID, CMP, TSH, ANEU #### [address] [address] BUN/Creatinine Ratio 20 ratio Normal 7-27 [facility] Comment on above: Performed By: #### P BNP, ADIFF, CBC, GFR, LIPID, CMP, TSH, ANEU #### [address] [address] Calcium [Mass/Vol] 9.4 mg/dL Normal 8.4-10.2 [facility] Comment on above: Performed By: #### P BNP, ADIFF, CBC, GFR, LIPID, CMP, TSH, ANEU #### [address] [address] Chloride [Moles/Vol] 105 mmol/L Normal 98-107 [facility] Comment on above: Performed By: #### P BNP, ADIFF, CBC, GFR, LIPID, CMP, TSH, ANEU #### [address] [address] CO2 [Moles/Vol] 30 mmol/L Normal 23-[address] [facility] Comment on above: Performed By: #### P BNP, ADIFF, CBC, GFR, LIPID, CMP, TSH, ANEU #### [address] [address] Creatinine [Mass/Vol] 0.79 mg/dL Normal 0.51-0.95 [facility] Comment on above: Performed By: #### P BNP, ADIFF, CBC, GFR, LIPID, CMP, TSH, ANEU #### [address] [address] Electrolyte Balance 5.0 mEq/L Normal 4.0-15.0 [facility] Comment on above: Performed By: #### P BNP, ADIFF, CBC, GFR, LIPID, CMP, TSH, ANEU #### [address] [address] Globulin 3.5 G/dL Normal 2.7-4.[address] [facility] Comment on above: Performed By: #### P BNP, ADIFF, CBC, GFR, LIPID, CMP, TSH, ANEU #### [address] [address] Glucose [Mass/Vol] 91 mg/dL Normal 83-110 [facility] Comment on above: Performed By: #### P BNP, ADIFF, CBC, GFR, LIPID, CMP, TSH, ANEU #### [address] [address] Potassium [Moles/Vol] 4.5 mmol/L Normal 3.5-5.1 [facility] Comment on above: Performed By: #### P BNP, ADIFF, CBC, GFR, LIPID, CMP, TSH, ANEU #### [address] [address] Sodium [Moles/Vol] 140 mmol/L Normal 136-145 [facility] Comment on above: Performed By: #### P BNP, ADIFF, CBC, GFR, LIPID, CMP, TSH, ANEU #### [address] [address] Total Protein 7.3 G/dL Normal 6.4-8.[address] [facility] Comment on above: Performed By: #### P BNP, ADIFF, CBC, GFR, LIPID, CMP, TSH, ANEU #### [address] [address] Urea nitrogen [Mass/Vol] 16 mg/dL Normal 7-[address] [facility] Comment on above: Performed By: #### P BNP, ADIFF, CBC, GFR, LIPID, CMP, TSH, ANEU #### [facility] [address] [place], [place] [address] LABORATORYOrdered By: SYSTEM SYSTEM on 03-20-2025 Albumin [...] 03-20-2025 Cholesterol [Mass/Vol] 161 mg/dL Normal 0-200 [facility] Comment on above: Result Comment: Chol esterol Reference Interval: Less than 200 Desirable 200-239 Borderline high risk 240 and above High risk Performed By: #### P BNP, ADIFF, CBC, GFR, LIPID, CMP, TSH, ANEU #### [address] [address] Cholesterol in HDL [Mass/Vol] 50 mg/dL Normal 40-[address] [facility] Comment on above: Performed By: #### P BNP, ADIFF, CBC, GFR, LIPID, CMP, TSH, ANEU #### [address] [address] Cholesterol in LDL [Mass/Vol] 84 mg/dL Normal 0-[address] [facility] Comment on above: Performed By: #### P BNP, ADIFF, CBC, GFR, LIPID, CMP, TSH, ANEU #### [address] [address] Triglyceride [Mass/Vol] 135 mg/dL Normal 0-[address] [facility] Comment on above: Result Comment: Trig lyceride Reference Interval: Less than 150 Normal 150-199 Borderline high risk 200-499 High risk 500 or higher Very high risk Performed By: #### P BNP, ADIFF, CBC, GFR, LIPID, CMP, TSH, ANEU #### [address] [address] PBNPon 03-20-2025 Natriuretic peptide B (Bld) [Mass/Vol] 105 pg/mL Normal 0-[address] [facility] Comment on above: Result Comment: NT-p roBNP results of less than 300 pg/mL effectively rules out acute congestive heart failure with 99% negative predictive value. Performed By: #### P BNP, ADIFF, CBC, GFR, LIPID, CMP, TSH, ANEU #### [address] [address] TSHon 03-20-2025 TSH Qn 1.51 m[IU]/L Normal 0.36-3.[address] [facility] Comment on above: Performed By: #### P BNP, ADIFF, CBC, GFR, LIPID, CMP, TSH, ANEU #### [address] [place], [place] [address] Thyroidon 02-22-2025 Thyroid [facility] [address] [place] [address] Thyroid MR#: [id number] Acct: [id number] Name: PARVIZ TRACY Rep #: [id number] : 1950 F 75 From: Mirlande Donald nd, MD PCP: Dr. Farnaz Simon MD Status: REG CLI Study: Thyroid Date of Exam: 02/22/25 Exam# [id number] Ordering Dr: Mikhail Cardenas MD PROCEDURE: THYROID [...] indicated by ACR TI-RADS criteria. Reading Location: [facility] CC: Dr. Farnaz Simon MD; Dr. Mikhail Cardenas MD Dining Car Waiter/Waitress: Signed Normal [facility] Echo Complete W/ Contraston 02-13-2025 Echo Complete W/ Contrast [facility] [address] [place] [address] Echo Complete W/ Contrast 02/13/25 1002 MR#: [id number] Acct: [id number] Name: PARVIZ TRACY Rep #: [id number] : 1950 74 From: Ritesh Meraz MD Attending Dr: Dr. Farnaz Simon MD Status: REG CLI Ordering Dr: Farnaz Simon MD Date: 02/13/25 Location: [facility] Sex: F C Admitted: Reason For Study [...] Physician: Farnaz Simon Performed By: Asia Walker, RDCS, RVT 02/13/25 1444 Date Ritesh Meraz MD CC: Dr. Farnaz Simon MD Date Dictated: 02/13/25 1002 Date Transcribed: 02/13/251443 Dining Car Waiter/Waitress: Signed Normal [facility] Echocardiogram study reportO rdered By: Ritesh Meraz on 02-13-2025 Study report [facility] [address] [place] [address] Echo Complete W/ Contrast 02/13/25 1002 MR#: [id number] Acct: [id number] Name: PARVIZ TRACY Rep #:[id number] : 1950 74 From: Rtiesh Hatch Attending Dr: Dr. Farnaz Simon MD Status: REG I Ordering Dr: Farnaz Simon MD Neto e: 02/13/25 Location: [facility] Sex: F C Admitted: Reason For Study [...] Dictated: 02/13/25 1002 Date Transcribed: 02/13/25 1444 Dining Car Waiter/Waitress: Signed [facility] Work Phone: Albumin to globulin ratioOrd ered By: Farnaz Simon on 01-05-2025 Albumin/Globulin [Mass ratio] 1.0 {ratio} 0.9-2.4 [facility] BNP (brain natriuretic pepti de measurement)Ordered By: Farnaz Simon on 01-05-2025 Natriuretic peptide B (Bld) [Mass/Vol] 33.3 pg/mL 0-100 [facility] BNP,B-Type NATRIURETIC PEPTI Day[place] 01-05-2025 Natriuretic peptide B (Bld) [Mass/Vol] 33.3 pg/mL Normal 0-100 [facility] Comment on above: Performed By: #### L 3410.9992 #### [facility] [address] [place], [address] Bilirubin, totalOrdered By: Farnaz Siomn on 01-05-2025 Bilirubin [Mass/Vol] 0.60 mg/dL 0.20-1.00 [facility] Comment on above: For patients on eltr ombopag therapy, use of Dimension Surprise TBIL is not recommended. Blood urea nitrogen (BUN)/cr eatinine ratioOrdered By: Farnaz Simon on 01-05-2025 Urea nitrogen/Creatinine [Mass ratio] 19.8 mg/mg 10-20 [facility] CBC-Complete Blood Cnt No Di ffon 01-05-2025 Erythrocyte distribution width (RBC) [Ratio] 14.0 % Normal 11.6-14.6 [facility] Comment on above: Order Comment: [id number] 0 JAK2 V671F W REFLEX-LAV WB-RMT Performed By: #### L 3410.9992 #### [facility] [address] [place], [address] Hematocrit (Bld) [Volume fraction] 49.7 % High 37-47 [facility] Comment on above: Order Comment: 63102 0 JAK2 V671F W REFLEX-LAV WB-RMT Performed By: #### L 3410.9992 #### [facility] [address] [place], [address] Hemoglobin (Bld) [Mass/Vol] 16.6 g/dL High 12.0-15.0 [facility] Comment on above: Order Comment: 58931 0 JAK2 V671F W REFLEX-LAV WB-RMT Performed By: #### L 341.9992 #### [facility] [address] [place], [address] MCH (RBC) [Entitic mass] 31.1 pg Normal 27.0-32.0 [facility] Comment on above: Order Comment: 93998 0 JAK2 V671F W REFLEX-LAV WB-RMT Performed By: #### L 341.9992 #### [facility] [address] [place], [address] MCHC (RBC) [Mass/Vol] 33.4 g/dL Normal 32-36 [facility] Comment on above: Order Comment: 82725 0 JAK2 V671F W REFLEX-LAV WB-RMT Performed By: #### L 341.9992 #### [facility] [address] [place], [address] MCV (RBC) [Entitic vol] 93.2 fL Normal 81-99 [facility] Comment on above: Order Comment: 47826 0 JAK2 V671F W REFLEX-LAV WB-RMT Performed By: #### L 341.9992 #### [facility] [address] [place], [address] Platelet mean volume (Bld) [Entitic vol] 9.9 fL Normal 6.2-12.0 [facility] Comment on above: Order Comment: 47422 0 JAK2 V671F W REFLEX-LAV WB-RMT Performed By: #### L 341.9992 #### [facility] [address] [place], [address] Platelets (Bld) [#/Vol] 244 10*3/uL Normal 150-450 [facility] Comment on above: Order Comment: 64879 0 JAK2 V671F W REFLEX-LAV WB-RMT Performed By: #### L 3410.9992 #### [facility] [address] [place], [address] RBC (Bld) [#/Vol] 5.33 10*6/uL Normal 4.2-5.4 [facility] Comment on above: Order Comment: 51773 0 JAK2 V671F W REFLEX-LAV WB-RMT Performed By: #### L 3410.9992 #### [facility] [address] [place], [address] RDW SD 47.9 fl High 35.1-43.9 [facility] Comment on above: Order Comment: 03945 0 JAK2 V671F W REFLEX-LAV WB-RMT Performed By: #### L 3410.9992 #### [facility] [address] [place], [address] WBC (Bld) [#/Vol] 8.0 10*3/uL Normal 4.4-11.0 [facility] Comment on above: Order Comment: 90225 0 JAK2 V671F W REFLEX-LAV WB-RMT Performed By: #### L 3410.9992 #### [facility] [address] [place], [address] Carbon dioxide measurementOr dered By: Farnaz Simon on 01-05-2025 CO2 [Moles/Vol] 25.0 mmol/L 21.0-32.0 [facility] Chloride measurementOrdered By: Farnaz Simon on 01-05-2025 Chloride [Moles/Vol] 106 mmol/L 98-107 [facility] Comprehensive Metabolic Prof ilon 01-05-2025 Albumin [Mass/Vol] 3.5 g/dL Normal 3.2-5.0 [facility] Comment on above: Order Comment: 54220 0 JAK2 V671F W REFLEX-LAV WB-RMT Performed By: #### L 3410.9992 #### [facility] [address] [place], [address] Albumin/Globulin [Mass ratio] 1.0 {ratio} Normal 0.9-2.4 [facility] Comment on above: Order Comment: 02401 0 JAK2 V671F W REFLEX-LAV WB-RMT Performed By: #### L 3410.9992 #### [facility] [address] [place], [address] ALK P 84 U/L Normal 45-117 [facility] Comment on above: Order Comment: 30870 0 JAK2 V671F W REFLEX-LAV WB-RMT Performed By: #### L 3410.9992 #### [facility] [address] [place], [address] ALT [Catalytic activity/Vol] 32 U/L Normal 13-56 [facility] Comment on above: Order Comment: 09903 0 JAK2 V671F W REFLEX-LAV WB-RMT Performed By: #### L 3410.9992 #### [facility] [address] [place], [address] AST [Catalytic activity/Vol] 20 U/L Normal 15-37 [facility] Comment on above: Order Comment: 72460 0 JAK2 V671F W REFLEX-LAV WB-RMT Performed By: #### L 3410.9992 #### [facility] [address] [place], [address] Bilirubin [Mass/Vol] 0.60 mg/dL Normal 0.20-1.00 [facility] Comment on above: Order Comment: 03923 0 JAK2 V671F W REFLEX-LAV WB-RMT Result Comment: For patients on eltrombopag therapy, use of Dimension Surprise TBIL is not recommended. Performed By: #### L 3410.9992 #### [facility] [address] [place], [address] BUN/CRE 19.8 RATIO Normal 10-20 [facility] Comment on above: Order Comment: 30721 0 JAK2 V671F W REFLEX-LAV WB-RMT Performed By: #### L 3410.9992 #### [facility] [address] [place], [address] CA,Total 9.1 mg/dL Normal 8.5-10.1 [facility] Comment on above: Order Comment: 86999 0 JAK2 V671F W REFLEX-LAV WB-RMT Performed By: #### L 3410.9992 #### [facility] [address] [place], [address] Chloride [Moles/Vol] 106 mmol/L Normal 98-107 [facility] Comment on above: Order Comment: 06381 0 JAK2 V671F W REFLEX-LAV WB-RMT Performed By: #### L 3410.9992 #### [facility] [address] [place], [address] CO2 [Moles/Vol] 25.0 mmol/L Normal 21.0-32.0 [facility] Comment on above: Order Comment: 51827 0 JAK2 V671F W REFLEX-LAV WB-RMT Performed By: #### L 3410.9992 #### [facility] [address] [place], [address] Creatinine [Mass/Vol] 0.81 mg/dL Normal 0.55-1.02 [facility] Comment on above: Order Comment: 05185 0 JAK2 V671F W REFLEX-LAV WB-RMT Result Comment: The validity of the calculated GFR GFRAA in patients over 70 years has not been determined. Clinical correlation is essential. Performed By: #### L 3410.9992 #### [facility] [address] [place], [address] EST GFR - AA 90 mL/min Normal >60 [facility] Comment on above: Order Comment: 59008 0 JAK2 V671F W REFLEX-LAV WB-RMT Result Comment: Afri can [place] GFR Calc Performed By: #### L 3410.9992 #### [facility] [address] [place], [address] GAP 7 Normal 5-15 [facility] Comment on above: Order Comment: 64044 0 JAK2 V671F W REFLEX-LAV WB-RMT Performed By: #### L 3410.9992 #### [facility] [address] [place], [address] GFR/1.73 sq M.predicted among non-blacks MDRD (S/P/Bld) [Vol rate/Area] 74 mL/min/{1.73_m2} Normal >60 [facility] Comment on above: Order Comment: 47184 0 JAK2 V671F W REFLEX-LAV WB-RMT Result Comment: Non- GFR Calc Performed By: #### L 3410.9992 #### [facility] [address] [place], [address] Globulin (S) [Mass/Vol] 3.5 g/dL Normal 2.2-4.2 [facility] Comment on above: Order Comment: 71805 0 JAK2 V671F W REFLEX-LAV WB-RMT Performed By: #### L 3410.9992 #### [facility] [address] [place], [address] Glucose [Mass/Vol] 105 mg/dL Normal 74-106 [facility] Comment on above: Order Comment: 46049 0 JAK2 V671F W REFLEX-LAV WB-RMT Result Comment: Fast ing Glucose result from 100 to 125 mg/dL suggests IMPAIRED HOMEOSTASIS per A.D.A. criteria. Performed By: #### L 3410.9992 #### [facility] [address] [place], [address] Potassium [Moles/Vol] 4.6 mmol/L Normal 3.5-5.1 [facility] Comment on above: Order Comment: 55047 0 JAK2 V671F W REFLEX-LAV WB-RMT Performed By: #### L 3410.9992 #### [facility] [address] [place], [place], [address] Sodium [Moles/Vol] 138 mmol/L Normal 136-145 [facility] Comment on above: Order Comment: 87705 0 JAK2 V671F W REFLEX-LAV WB-RMT Performed By: #### L 3410.9992 #### [facility] [address] [place], [place], [address] T PROT 7.0 g/dL Normal 6.4-8.2 [facility] Comment on above: Order Comment: 65902 0 JAK2 V671F W REFLEX-LAV WB-RMT Performed By: #### L 3410.9992 #### [facility] [address] [place], [address] Urea nitrogen [Mass/Vol] 16 mg/dL Normal 7-18 [facility] Comment on above: Order Comment: 98064 0 JAK2 V671F W REFLEX-LAV WB-RMT Performed By: #### L 3410.9992 #### [facility] [address] [place], [place], [address] Erythrocyte distribution wid th ratioOrdered By: Farnaz Simon on 01-05-2025 Erythrocyte distribution width (RBC) [Ratio] 14.0 % 11.6-14.6 [facility] Erythrocyte distribution wid th standard deviationOrdered By: Farnaz Simon on 01-05-2025 Erythrocyte distribution width (RBC) [Entitic vol] 47.9 fL High 35.1-43.9 [facility] Estimated glomerular filtrat ion rate (GFR) AmericanOrdered By: Farnaz Simon on 01-05-2025 Estimated GFR (MDRD) Amer 90 mL/min >60 [facility] Comment on above: GFR Calc Glomerular filtration rate ( GFR) estimationOrdered By: Farnaz Simon on 01-05-2025 Estimated GFR (MDRD) Non-Af Amer 74 mL/min >60 [facility] Comment on above: Non- GFR Calc Glucose measurementOrdered B y: Farnaz Simon on 01-05-2025 Glucose [Mass/Vol] 105 mg/dL 74-106 [facility] Comment on above: Fasting Glucose resu lt from 100 to 125 mg/dL suggests IMPAIRED HOMEOSTASIS per A.D.A. criteria. Hematocrit Auto (Bld) [Volum e fraction]Ordered By: Farnaz Simon on 01-05-2025 Hematocrit (Bld) [Volume fraction] 49.7 % High 37-47 [facility] Hemoglobin measurementOrdere d By: Farnaz Simon on 01-05-2025 Hemoglobin (Bld) [Mass/Vol] 16.6 g/dL High 12.0-15.0 [facility] High density lipoprotein (HD L) measurementOrdered By: Farnaz Simon on 01-05-2025 Cholesterol in HDL [Mass/Vol] 51 mg/dL >40 [facility] Comment on above: The drugs N-Acetylcy steine and Metamizole may falsely depress this assay. Reference Range HDL <40 mg/dL Low HDL Cholesterol HDL >or= 60 mg/dL High HDL Cholesterol Laboratory - Chemistry and C hemistry - challengeOrdered By: Farnaz Simon on 01-05-2025 AST [Catalytic activity/Vol] 20 U/L 15-37 [facility] Lipid Profileon 01-05-2025 Cholesterol [Mass/Vol] 134 mg/dL Normal 200 [facility] Comment on above: Order Comment: [id number] 0 JAK2 V671F W REFLEX-LAV WB-RMT Result Comment: <200 mg/dL Desirable 200-240 mg/dL Borderline >240 mg/dL High Risk Performed By: #### L 3410.9992 #### [facility] [address] [place], [place], [address] Cholesterol in HDL [Mass/Vol] 51 mg/dL Normal [facility] Comment on above: Order Comment: [id number] 0 JAK2 V671F W REFLEX-LAV WB-RMT Result Comment: The drugs N-Acetylcysteine and Metamizole may falsely depress this assay. Reference Range HDL <40 mg/dL Low HDL Cholesterol HDL >or= 60 mg/dL High HDL Cholesterol Performed By: #### L 3410.9992 #### [facility] [address] [place], [address] Cholesterol in LDL [Mass/Vol] 65 mg/dL Normal 0-130 [facility] Comment on above: Order Comment: 83029 0 JAK2 V671F W REFLEX-LAV WB-RMT Performed By: #### L 3410.9992 #### [facility] [address] [place], [address] Cholesterol in VLDL [Mass/Vol] 18 mg/dL Normal 5-40 [facility] Comment on above: Order Comment: 38888 0 JAK2 V671F W REFLEX-LAV WB-RMT Performed By: #### L 3410.9992 #### [facility] [address] [place], [address] Triglyceride [Mass/Vol] 90 mg/dL Normal [facility] Comment on above: Order Comment: 84173 0 JAK2 V671F W REFLEX-LAV WB-RMT Result Comment: The drugs N-Acetylcysteine and Metamizole may falsely depress this assay. Serum Triglycerides Reference Interval Normal <150 mg/dL Borderline high 150 - 199 mg/dL High 200 - 499 mg/dL Very High > or = 500 mg/dL Performed By: #### L 3410.9992 #### [facility] [address] [facility], [address] Low density lipoprotein (LDL ) cholesterol measurementOrdered By: Farnaz Simon on 01-05-2025 Cholesterol in LDL [Mass/Vol] 65 mg/dL 0-130 [facility] MCV (mean corpuscular volume ) determinationOrdered By: Farnaz Simon on 01-05-2025 MCV (RBC) [Entitic vol] 93.2 fL 81-99 [facility] Mean corpuscular hemoglobin (MCH) determinationOrdered By: Farnaz Simon on 01-05-2025 MCH (RBC) [Entitic mass] 31.1 pg 27.0-32.0 [facility] Mean corpuscular hemoglobin concentration (MCHC) determinationOrdered By: Farnaz Simon on 01-05-2025 MCHC (RBC) [Mass/Vol] 33.4 g/dL 32-36 [facility] Mean platelet volume determi nationOrdered By: Farnaz Simon on 01-05-2025 Platelet mean volume (Bld) [Entitic vol] 9.9 fL 6.2-12.0 [facility] Platelet countOrdered By: Danyell Simon on 01-05-2025 Platelets (Bld) [#/Vol] 244 10*3/uL 150-450 [facility] Potassium measurementOrdered By: Farnaz Simon on 01-05-2025 Potassium [Moles/Vol] 4.6 mmol/L 3.5-5.1 [facility] RBC Auto (Bld) [#/Vol]Ordere d By: Farnaz Simon on 01-05-2025 RBC (Bld) [#/Vol] 5.33 10*6/uL 4.2-5.4 [facility] Serum anion gap measurementO rdered By: Farnaz Simon on 01-05-2025 Anion gap [Moles/Vol] 7 mmol/L 5-15 [facility] Serum globulin measurementOr dered By: Farnaz Simon on 01-05-2025 Globulin (S) [Mass/Vol] 3.5 g/dL 2.2-4.2 [facility] Serum or plasma alanine patel otransferase (ALT) measurementOrdered By: Farnaz Simon on 01-05-2025 ALT [Catalytic activity/Vol] 32 U/L 13-56 [facility] Serum or plasma albumin natalio urement (mass/volume)Ordered By: Farnaz Simon on 01-05-2025 Albumin [Mass/Vol] 3.5 g/dL 3.2-5.0 [facility] Serum or plasma alkaline angela sphatase measurementOrdered By: Farnaz Simon on 01-05-2025 ALP [Catalytic activity/Vol] 84 U/L 45-117 [facility] Serum or plasma calcium natalio urement (mass/volume)Ordered By: Farnaz Simon on 01-05-2025 Calcium [Mass/Vol] 9.1 mg/dL 8.5-10.1 [facility] Serum or plasma cholesterol measurement (mass/volume)Ordered By: Farnaz Simon on 01-05-2025 Cholesterol [Mass/Vol] 134 mg/dL <200 [facility] Comment on above: <200 mg/dL Desirable 200-240 mg/dL Borderline >240 mg/dL High Risk Serum or plasma creatinine m easurement (mass/volume)Ordered By: Farnaz Simon on 01-05-2025 Creatinine [Mass/Vol] 0.81 mg/dL 0.55-1.02 [facility] Comment on above: The validity of the calculated GFR & GFRAA in patients over 70 years has not been determined. Clinical correlation is essential. Serum or plasma urea nitroge n measurement (mass/volume)Ordered By: Farnaz Simon on 01-05-2025 Urea nitrogen [Mass/Vol] 16 mg/dL 7-18 [facility] Sodium levelOrdered By: Jackie Simon on 01-05-2025 Sodium [Moles/Vol] 138 mmol/L 136-145 [facility] TSH QnOrdered By: Arslan Simon on 01-05-2025 Thyroid Stimulating Hormone (TSH) 1.600 uIU/mL 0.358-3.74 0 [facility] Thyroid Stim Hormone (TSH)on 01-05-2025 TSH 1.600 uIU/mL Normal 0.358-3.74 0 [facility] Comment on above: Order Comment: [id number] 0 JAK2 V671F W REFLEX-LAV WB-RMT Performed By: #### L 3410.9992 #### [facility] [address] [place], [address] Total proteinOrdered By: Adelina Simon on 01-05-2025 Protein [Mass/Vol] 7.0 g/dL 6.4-8.2 [facility] Triglycerides measurementOrd ered By: Farnaz Simon on 01-05-2025 Triglyceride [Mass/Vol] 90 mg/dL <199 [facility] Comment on above: The drugs N-Acetylcy steine and Metamizole may falsely depress this assay.Serum Triglycerides Reference Interval Normal <150 mg/dL Borderline high 150 - 199 mg/dL High 200 - 499 mg/dL Very High > or = 500 mg/dL Very low density lipoprotein (VLDL) cholesterol measurementOrdered By: Farnaz Simon on 01-05-2025 VLDL Cholesterol 18 mg/dL 5-40 [facility] White blood cell (WBC) count Ordered By: Farnaz Simon on 01-05-2025 WBC (Bld) [#/Vol] 8.0 10*3/uL 4.4-11.0 [facility] Chest PA and Lateralon 01-04 Chest PA and Lateral [facility] [address] [place], [place] [address] Chest PA and Lateral MR#: [id number] Acct: [id number] Name: PARVIZ TRACY Rep #: [id number] : 1950 F 74 From: Wisam medley MD PCP: Dr. Farnaz Simon MD Status: REG CLI Study: Chest PA and Lateral Date of Exam: 01/04/25 Exam# [id number] Ordering Dr: Farnaz Simon PROCEDURE: CHEST PA [...] consolidation, pleural effusion or pneumothorax. Reading Location: [id number] CC: Dr. Farnaz Simon MD Dining Car Waiter/Waitress: Signed Normal [facility] COLLEEN SCREENING W TOMOon 01-02 COLLEEN SCREENING W MALACHI * * *Final Report* * * DATE OF EXAM: Jan 02 2025 10:05AM [facility] [id number] - COLLEEN SCREENING W MALACHI / PROCEDURE REASON: multiple diagnoses * * * * Physician Interpretation * * * * RESULT: [facility] [address] [place] [address] #[id number] - COLLEEN SCREENING W MALACHI HISTORY: 74 [...] Leander Sheridan M.D. Electronically signed on: 01/03/2025 Dining Car Waiter/Waitress: GINNY Transcribe Date/Time: Jan 02 2025 9:19A Dictated by: LEANDER SHERIDAN MD This examination was interpreted and the report reviewed and electronically signed by: LEANDER SHERIDAN MD on Jan 03 2025 7:51AM EST [id number] Normal [place] CNOVon 10-19-2024 CNOV Office Visit (OBGYWM ) PARVIZ TRACY ([id number]) 1950 F Date Time Provider Department 10/19/24 8:40 AM ROBERT GARSIA OBGYWM During your visit today, we recorded the following information about you: Blood pressure Weight Height 128/82 113.4 kg 1.632 m Robert Garsia MD 10/19/2024 9:20 AM Signed Parviz is a 74 year old who presents for an annual gynecologic exam without complaints. Postmenopausal: yes OB History T2 L2 SAB0 IAB1 Ectopic0 Multiple0 Live Births0 Comment: NORMAL VAGINAL DELIVERY X2. [employer] History LMP: Postmenopausal Age at Menarche: Age at First : Age at Menopause: [employer] History Comments: Sexual Activity: Yes; Male Contraception: No contraception data on record PAST MEDICAL HISTORY Diagnosis Date A-fib (HCC) Backache, unspecified Benign shuddering attacks Carpal tunnel syndrome Diastolic dysfunction DVT of leg (deep venous thrombosis) ([facility]) 02/2019 Heart failure (HCC) Insomnia Macular degeneration Melanoma of right upper arm ([facility]) 01/2020 Osteopenia Other malignant neoplasm of skin, [...] Rotator cuff repair PAST SURGICAL HISTORY OF [place] teeth extracted PAST SURGICAL HISTORY OF 08/23/2006 [...] discussed with the Patient or Patient's Authorized Professor Of Environmental Studies. As applicable, any other physician, advance practice provider, medical student, or other health professional student that will be observing or involved in the sensitive examination for educational or training purposes was discussed with the Patient or Authorized Professor Of Environmental Studies. The Patient or Authorized Professor Of Environmental Studies has agreed to proceed with the sensitive [...] external genitalia normal, normal Bartholin's glands, urethra, [place]'s glands, no vulvar lesions, no cervical lesions, [...] 2) Follow (more content not included)... Normal [facility] [place] Basophil percentageOrdered B y: Dat Mata on 03-17-2024 Chloride [Moles/Vol] 106 mmol/L 98-107 [facility] Glucose [Mass/Vol] 139 mg/dL 74-106 [facility] Comment on above: Fasting Glucose resu lt greater than or equal to 126 mg/dL suggests DIABETES MELLITUS per A.D.A. criteria. Hemoglobin (Bld) [Mass/Vol] 15.6 g/dL 12.0-15.0 [facility] Potassium [Moles/Vol] 3.7 mmol/L 3.5-5.1 [facility] Sodium [Moles/Vol] 139 mmol/L 136-145 [facility] WBC (Bld) [#/Vol] 15.2 10*3/uL 4.4-11.0 [facility] Determination of erythrocyte mean corpuscular volume (MCV)Ordered By: Dat Mata on 03-17-2024 MCV (RBC) [Entitic vol] 92.7 fL 81-99 [facility] Erythrocyte distribution wid th ratioOrdered By: Dat Mata on 03-17-2024 Erythrocyte distribution width (RBC) [Ratio] 14.1 % 11.6-14.6 [facility] Erythrocyte distribution wid th standard deviationOrdered By: Dat Mata on 03-17-2024 Erythrocyte distribution width (RBC) [Entitic vol] 47.8 fL 35.1-43.9 [facility] Hematocrit Auto (Bld) [Volum e fraction]Ordered By: Dat Mata on 03-17-2024 Hematocrit (Bld) [Volume fraction] 47.0 % 37-47 [facility] Laboratory - Chemistry and C hemistry - challengeOrdered By: Dat Mata on 03-17-2024 CO2 [Moles/Vol] 25.0 mmol/L 21.0-32.0 [facility] Urea nitrogen/Creatinine [Mass ratio] 14.2 mg/mg 10-20 [facility] Laboratory - CoagulationOrde red By: Abrahan Silver on 03-17-2024 INR Coag (Bld) [Relative time] 1.2 {INR} [facility] PT Coag (PPP) [Time] 14.9 s 11.7-14.9 [facility] Laboratory - Hematology and Cell countsOrdered By: Dat Mata on 03-17-2024 MCH (RBC) [Entitic mass] 30.8 pg 27.0-32.0 [facility] MCHC (RBC) [Mass/Vol] 33.2 g/dL 32-36 [facility] Platelet mean volume (Bld) [Entitic vol] 9.7 fL 6.2-12.0 [facility] Platelets (Bld) [#/Vol] 263 10*3/uL 150-450 [facility] No Panel InformationOrdered By: Dat Mata on 03-17-2024 Estimated Creatinine Clearance Calc 78.25 ml/min [facility] Estimated GFR (MDRD) Amer 94 mL/min >60 [facility] Comment on above: GFR Calc Estimated GFR (MDRD) Non-Af Amer 78 mL/min >60 [facility] Comment on above: Non- GFR Calc RBC Auto (Bld) [#/Vol]Ordere d By: Dat Mata on 03-17-2024 RBC (Bld) [#/Vol] 5.07 10*6/uL 4.2-5.4 [facility] Serum or plasma calcium natalio urement (mass/volume)Ordered By: Dat Mata on 03-17-2024 Calcium [Mass/Vol] 9.0 mg/dL 8.5-10.1 [facility] Serum or plasma creatinine m easurement (mass/volume)Ordered By: Dat Mata on 03-17-2024 Creatinine [Mass/Vol] 0.78 mg/dL 0.55-1.02 [facility] Comment on above: The validity of the calculated GFR & GFRAA in patients over 70 years has not been determined. Clinical correlation is essential. Serum or plasma urea nitroge n measurement (mass/volume)Ordered By: Dat Mata on 03-17-2024 Urea nitrogen [Mass/Vol] 11 mg/dL 7-18 [facility] Thin prep Papanicolaou smear with manual screeningOrdered By: Dat Mata on 03-17-2024 Thin prep Papanicolaou smear with manual screening 8 5-15 [facility] Thin prep Papanicolaou smear with manual screeningOrdered By: Dat Mata on 03-16-2024 Thin prep Papanicolaou smear with manual screening 76 mg/dL 74-106 [facility] Comment on above: MANAGEMENT OF PATIEN T CARE PER NURSING PROTOCOL Whole blood prothrombin time Ordered By: Dat Mata on 03-16-2024 PT Coag (Bld) [Time] 21.3 s 11.7-14.9 [facility] .GFRon 03-14-2024 GFR 85 ml/min/1.73sqm Normal [facility] ([place]) Comment on above: Result Comment: [...] By: #### G FR, PBNP, BMP #### [place] [address] GFR Non- 71 ml/min/1.73sqm Normal [facility] ([place]) Comment on above: Result Comment: GFR [...] Performed By: #### THERESA PIPER BMP #### [address] [address] BMPon 03-14-2024 BUN/Creatinine Ratio 32 ratio High 7-27 [facility] ([place]) Comment on above: Performed By: #### THERESA PIPER BMP #### [address] [address] Calcium [Mass/Vol] 8.9 mg/dL Normal 8.4-10.2 [facility] ([place]) Comment on above: Performed By: #### THERESA PIPER BMP #### [address] [address] Chloride [Moles/Vol] 103 mmol/L Normal 98-107 [facility] ([place]) Comment on above: Performed By: #### THERESA PIPER BMP #### [address] [address] CO2 [Moles/Vol] 28 mmol/L Normal 23-31 [facility] ([place]) Comment on above: Performed By: #### THERESA PIPER BMP #### [address] [address] Creatinine [Mass/Vol] 0.80 mg/dL Normal 0.55-1.02 [facility] ([place]) Comment on above: Performed By: #### THERESA PIPER BMP #### [address] [address] Electrolyte Balance 9.0 mEq/L Normal 4.0-15.0 [facility] ([place]) Comment on above: Performed By: #### THERESA PIPER BMP #### [address] [address] Glucose [Mass/Vol] 95 mg/dL Normal 83-110 [facility] ([place]) Comment on above: Performed By: #### G THERESA BLANCO BMP #### [place] [address] [place], [place] [address] Potassium [Moles/Vol] 4.3 mmol/L Normal 3.5-5.1 [facility] ([place]) Comment on above: Performed By: #### THERESA PIPER, MARIAN #### [place] [address] [place], [place] [address] Sodium [Moles/Vol] 140 mmol/L Normal 136-145 [facility] ([place]) Comment on above: Performed By: #### THERESA PIPER BMP #### [place] [address] [place], [place] [address] Urea nitrogen [Mass/Vol] 26 mg/dL High 7-18 [facility] ([place]) Comment on above: Performed By: #### THERESA PIPER BMP #### [address] [address] LABORATORYOrdered By: SYSTEM SYSTEM on 03-14-2024 Calcium [...] B (Bld) [Mass/Vol] 108 pg/mL Normal 0-125 [facility] ([place]) Comment on above: Result Comment: NT-p roBNP results of less than 300 pg/mL effectively rules out acute congestive heart failure with 99% negative predictive value. Performed By: #### G , THERESA, MARIAN #### [place] [address] [address] Basophil percentageOrdered B y: Dat Mata on 02-19-2024 Chloride [Moles/Vol] 108 mmol/L 98-107 [facility] Glucose [Mass/Vol] 93 mg/dL 74-106 [facility] Potassium [Moles/Vol] 3.9 mmol/L 3.5-5.1 [facility] Sodium [Moles/Vol] 140 mmol/L 136-145 [facility] Basophil percentageOrdered B y: [facility]iz [facility] Hemoglobin (Bld) [Mass/Vol] 15.7 g/dL 12.0-15.0 [facility] WBC (Bld) [#/Vol] 7.6 10*3/uL 4.4-11.0 [facility] Determination of erythrocyte mean corpuscular volume (MCV)Ordered By: Luiz [facility] on 02-19-2024 MCV (RBC) [Entitic vol] 92.3 fL 81-99 [facility] Erythrocyte distribution wid th ratioOrdered By: [facility] on 02-19-2024 Erythrocyte distribution width (RBC) [Ratio] 13.6 % 11.6-14.6 [facility] Erythrocyte distribution wid th standard deviationOrdered By: [facility] on 02-19-2024 Erythrocyte distribution width (RBC) [Entitic vol] 46.5 fL 35.1-43.9 [facility] Hematocrit Auto (Bld) [Volum e fraction]Ordered By: [facility] 02-19-20[facility] Hematocrit (Bld) [Volume fraction] 47.7 % 37-47 [facility] Laboratory - Chemistry and C hemistry - challengeOrdered By: Dat Mata on 02-19-2024 CO2 [Moles/Vol] 27.0 mmol/L 21.0-32.0 [facility] Urea nitrogen/Creatinine [Mass ratio] 17.3 mg/mg 10-20 [facility] Laboratory - Chemistry and C hemistry - challengeOrdered By: Luiz Cortes on 02-19-2024 Magnesium [Mass/Vol] 2.4 mg/dL 1.6-2.6 [facility] Laboratory - Hematology and Cell countsOrdered By: Luiz Cortes on 02-19-2024 MCH (RBC) [Entitic mass] 30.4 pg 27.0-32.0 [facility] MCHC (RBC) [Mass/Vol] 32.9 g/dL 32-36 [facility] Platelet mean volume (Bld) [Entitic vol] 9.6 fL 6.2-12.0 [facility] Platelets (Bld) [#/Vol] 249 10*3/uL 150-450 [facility] No Panel InformationOrdered By: Dat Mata on 02-19-2024 Estimated GFR (MDRD) Amer 77 mL/min >60 [facility] Comment on above: GFR Calc Estimated GFR (MDRD) Non-Af Amer 64 mL/min >60 [facility] Comment on above: Non- GFR Calc Nasal Screen MRSA/MSSA [facility] RBC Auto (Bld) [#/Vol]Ordere d By: Luiz Cortes on 02-19-2024 RBC (Bld) [#/Vol] 5.17 10*6/uL 4.2-5.4 [facility] Serum or plasma calcium natalio urement (mass/volume)Ordered By: Dat Mata on 02-19-2024 Calcium [Mass/Vol] 9.2 mg/dL 8.5-10.1 [facility] Serum or plasma creatinine m easurement (mass/volume)Ordered By: Dat Mata on 02-19-2024 Creatinine [Mass/Vol] 0.92 mg/dL 0.55-1.02 [facility] Comment on above: The validity of the calculated GFR & GFRAA in patients over 70 years has not been determined. Clinical correlation is essential. Serum or plasma thyroid stim ulating hormone (TSH) measurement (units/volume)Ordered By: Luiz Cortes on 02-19-2024 TSH Qn 1.54 uIU/mL 0.358-3.74 [facility] Serum or plasma urea nitroge n measurement (mass/volume)Ordered By: Dat Mata on 02-19-2024 Urea nitrogen [Mass/Vol] 16 mg/dL 7-18 [facility] Thin prep Papanicolaou smear with manual screeningOrdered By: Dat Mata on 02-19-2024 Thin prep Papanicolaou smear with manual screening 3.5 g/dL 3.2-5.0 [facility] Thin prep Papanicolaou smear with manual screening 5 5-15 [facility] Absolute lymphocyte countOrd ered By: Arslan Simon on 11-04-2023 Lymphocytes Auto (Unsp spec) [#/Vol] 2.15 10*3/uL 0.83-4.51 [facility] Basophil percentageOrdered B y: Arslan Simon on 11-04-2023 Basophils/100 WBC (Bld) 1.5 % 0-1 [facility] Chloride [Moles/Vol] 106 mmol/L 98-107 [facility] Cholesterol [Mass/Vol] 161 mg/dL <200 [facility] Comment on above: <200 mg/dL Desirable 200-240 mg/dL Borderline >240 mg/dL High Risk Eosinophils/100 WBC (Bld) 4.4 % 0-5 [facility] Glucose [Mass/Vol] 96 mg/dL 74-106 [facility] Neutrophils (Bld) [#/Vol] 5.2 10*3/uL 2.0-7.7 [facility] Neutrophils/100 WBC (Bld) 58.9 % 47-70 [facility] Potassium [Moles/Vol] 3.8 mmol/L 3.5-5.1 [facility] Comment on above: Slight Hemolysis, Re sult may be falsely increased. Sodium [Moles/Vol] 139 mmol/L 136-145 [facility] Triglyceride [Mass/Vol] 108 mg/dL <199 [facility] Comment on above: The drugs N-Acetylcy steine and Metamizole may falsely depress this assay.Serum Triglycerides Reference Interval Normal <150 mg/dL Borderline high 150 - 199 mg/dL High 200 - 499 mg/dL Very High > or = 500 mg/dL WBC (Bld) [#/Vol] 8.8 10*3/uL 4.4-11.0 [facility] Blood erythrocytes count (nu mber/volume)Ordered By: Arslan Simon on 11-04-2023 RBC (Bld) [#/Vol] 5.29 10*6/uL 4.2-5.4 [facility] Blood hemoglobin measurement (mass/volume)Ordered By: Arslan Simon on 11-04-2023 Hemoglobin (Bld) [Mass/Vol] 16.1 g/dL 12.0-15.0 [facility] Blood lymphocytes/100 leukoc ytesOrdered By: Arslan Simon on 11-04-2023 Lymphocytes/100 WBC (Bld) 24.4 % 19-41 [facility] Blood monocytes/100 leukocyt esOrdered By: Arslan Simon on 11-04-2023 Monocytes/100 WBC (Bld) 10.3 % 0-10 [facility] Blood platelet mean volumeOr dered By: Arslan Simon on 11-04-2023 Platelet mean volume (Bld) [Entitic vol] 9.9 fL 6.2-12.0 [facility] Determination of erythrocyte mean corpuscular volume (MCV)Ordered By: Arslan Simon on 11-04-2023 MCV (RBC) [Entitic vol] 93.0 fL 81-99 [facility] Erythrocyte sedimentation ra teOrdered By: Arslan Simon on 11-04-2023 ESR (Bld) [Velocity] 19 mm/h 0-30 [facility] Hematocrit Auto (Bld) [Volum e fraction]Ordered By: Arslan Simon on 11-04-2023 Hematocrit (Bld) [Volume fraction] 49.2 % 37-47 [facility] Laboratory - Chemistry and C hemistry - challengeOrdered By: Arslan Simon on 11-04-2023 CO2 [Moles/Vol] 26.0 mmol/L 21.0-32.0 [facility] Urea nitrogen/Creatinine [Mass ratio] 21.6 mg/mg 10-20 [facility] Laboratory - Hematology and Cell countsOrdered By: Arslan Simon on 11-04-2023 Erythrocyte distribution width (RBC) [Entitic vol] 45.6 fL 35.1-43.9 [facility] Erythrocyte distribution width (RBC) [Ratio] 13.3 % 11.6-14.6 [facility] Immature granulocytes/100 WBC (Bld) 0.500 % 0.0-0.9 [facility] Comment on above: IG% - Immature Granu locytes (promyelocytes, myelocytes and metamyelocytes) > 1% indicates that a LEFT SHIFT is Present. MCH (RBC) [Entitic mass] 30.4 pg 27.0-32.0 [facility] Nucleated RBC/100 WBC (Bld) [Ratio] 0 % 0-5 [facility] MCHC Auto (RBC) [Mass/Vol]Or dered By: Arslan Simon on 11-04-2023 MCHC (RBC) [Mass/Vol] 32.7 g/dL 32-36 [facility] No Panel InformationOrdered By: Arslan Simon on 11-04-2023 Estimated GFR (MDRD) Amer 86 mL/min >60 [facility] Comment on above: GFR Calc Estimated GFR (MDRD) Non-Af Amer 71 mL/min >60 [facility] Comment on above: Non- GFR Calc Thyroid Stimulating Hormone (TSH) 1.29 uIU/mL 0.358-3.74 [facility] Platelets bldOrdered By: Adelina Simon on 11-04-2023 Platelets (Bld) [#/Vol] 269 10*3/uL 150-450 [facility] Serum or plasma calcium natalio urement (mass/volume)Ordered By: Arslan Simon on 11-04-2023 Calcium [Mass/Vol] 9.1 mg/dL 8.5-10.1 [facility] Serum or plasma cholesterol in HDL measurement (mass/volume)Ordered By: Arslan Simon on 11-04-2023 Cholesterol in HDL [Mass/Vol] 54 mg/dL >40 [facility] Comment on above: The drugs N-Acetylcy steine and Metamizole may falsely depress this assay. Reference Range HDL <40 mg/dL Low HDL Cholesterol HDL >or= 60 mg/dL High HDL Cholesterol Serum or plasma cholesterol in VLDL measurement (mass/volume)Ordered By: Arslan Simon on 11-04-2023 Cholesterol in VLDL [Mass/Vol] 22 mg/dL 5-40 [facility] Serum or plasma creatinine m easurement (mass/volume)Ordered By: Arslan Simon on 11-04-2023 Creatinine [Mass/Vol] 0.84 mg/dL 0.55-1.02 [facility] Comment on above: The validity of the calculated GFR & GFRAA in patients over 70 years has not been determined. Clinical correlation is essential. Serum or plasma low density lipoprotein (LDL) cholesterol measurement (mass/volume)Ordered By: Arslan Simon on 11-04-2023 Cholesterol in LDL [Mass/Vol] 85 mg/dL 0-130 [facility] Serum or plasma urea nitroge n measurement (mass/volume)Ordered By: Arslan Simon on 11-04-2023 Urea nitrogen [Mass/Vol] 18 mg/dL 7-18 [facility] Thin prep Papanicolaou smear with manual screeningOrdered By: Arslan Simon on 11-04-2023 Thin prep Papanicolaou smear with manual screening 7 5-15 [facility] .GFRon 08-21-2023 GFR 77 ml/min/1.73sqm Normal [facility] ([place]) Comment on above: Result Comment: GFR Population [...] By: #### B MP, PBNP, GFR #### [address] [address] GFR Non- 63 ml/min/1.73sqm Normal [facility] ([place]) Comment on above: Result Comment: GFR Population [...] By: #### B MP, PBNP, GFR #### [address] [address] BMPon 08-21-2023 BUN/Creatinine Ratio 24 ratio Normal 7-27 [facility] ([place]) Comment on above: Performed By: #### B MP, PBNP, GFR #### [address] [address] Calcium [Mass/Vol] 9.2 mg/dL Normal 8.4-10.2 [facility] ([place]) Comment on above: Performed By: #### B MP, PBNP, GFR #### [address] [address] Chloride [Moles/Vol] 103 mmol/L Normal 98-107 [facility] ([place]) Comment on above: Performed By: #### B MP, PBNP, GFR #### [address] [address] CO2 [Moles/Vol] 27 mmol/L Normal 23-31 [facility] ([place]) Comment on above: Performed By: #### B MP, PBNP, GFR #### [address] [address] Creatinine [Mass/Vol] 0.88 mg/dL Normal 0.55-1.02 [facility] ([place]) Comment on above: Performed By: #### B MP, PBNP, GFR #### [address] [address] Electrolyte Balance 8.0 mEq/L Normal 4.0-15.0 [facility] ([place]) Comment on above: Performed By: #### B MP, PBNP, GFR #### [address] [address] Glucose [Mass/Vol] 109 mg/dL Normal 83-110 [facility] ([place]) Comment on above: Performed By: #### B MP, PBNP, GFR #### [address] [address] Potassium [Moles/Vol] 4.3 mmol/L Normal 3.5-5.1 [facility] ([place]) Comment on above: Performed By: #### B MP, PBNP, GFR #### [address] [address] Sodium [Moles/Vol] 138 mmol/L Normal 136-145 [facility] ([place]) Comment on above: Performed By: #### B MP, PBNP, GFR #### [address] [address] Urea nitrogen [Mass/Vol] 21 mg/dL High 7-18 [facility] ([place]) Comment on above: Performed By: #### B MP, PBNP, GFR #### [address] [address] LABORATORYOrdered By: SYSTEM SYSTEM on 08-21-2023 Calcium [...] [Mass ratio] 24 ratio Invalid Interpretation Code ratio AO ADM SS PBNPon 08-21-2023 Natriuretic peptide B (Bld) [Mass/Vol] 123 pg/mL Normal 0-125 [facility] ([place]) Comment on above: Result Comment: NT-p roBNP results of less than 300 pg/mL effectively rules out acute congestive heart failure with 99% negative predictive value. Performed By: #### B MP, PBNP, GFR #### [facility] [address] [place], [place] [address] Laboratory - CoagulationOrde red By: Dr. Cardenas on 04-10-2023 INR Coag (Bld) [Relative time] 1.5 {INR} [facility] Comment on above: Critical Value > 4.0 Whole blood prothrombin time Ordered By: Dr. Cardenas on 04-10-2023 PT Coag (Bld) [Time] 17.1 s 11.7-14.9 [facility] JAK2 V617F mutation detectio nOrdered By: Dr. Simon on 03-18-2023 JAK2 gene p.[id number] Molgen Ql (Bld/Tiss) Comment . [facility] Comment on above: Result: NEGATIVE for the JAK2 V617F mutation.Interpretation: The G to T nucleotide change encoding [id number] mutation was not detected. This result does [...] Simon on 03-18-2023 JAK2 Mutation Comment . [facility] Comment on above: Isamar Gilmore, PhD, FACM GDirector, Molecular OncologyMalden Hospital Center for Molecular Biology and PathologyResLas Vegas, [place] [phone] test was developed and its performance characteristicsdetermined by [employer]. It has not been cleared orapproved by the Food and Drug Administration. JAK2 V617F Reviewed By Comment . [facility] Comment on above: JAK2 is a cytoplasmi c tyrosine kinase with a hart role insignal transduction from multiple hematopoietic growthfactor receptors. 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 The [employer] Absolute Quantitation softwarewill compare the patient specimen valuse to the standardcurves and generate percent values for wild type andmutant type. In vitro studies have indicated that thisassay has an analytical sensitivity of 1%.References:Sukumar EJ, Roberto LM, Taran PJ, et al. Acquiredmutation of the tyrosine kinase JAK2 in humanmyeloproliferative disorders. Lancet. 2005 Feb 08;365(8472):3503-6822. Alex Pérez, Moises V, Amada Levine KHUSHI. Aunique clonal JAK2 mutation leading to constitutivesignaling causes polycythaemia vera. Nature. 2005 Mar 20;434(4799):0772-8471.Shannan R, Bay F, Elihsa , et al. A [id number]-px-[id number] mutation of JAK2 in myeloproliferative disorders.N Engl J Med. 2005 Mar 20; 35217):6967-5066. Serum or plasma erythropoiet in (EPO) measurement (units/volume)Ordered By: Dr. Simon on 03-18-2023 Erythropoietin (EPO) Qn 13.8 mIU/mL 2.6-18.5 [facility] Comment on above: [place] el DxI 800 Immunoassay SystemValues obtained with different assay methods or kits cannotbe used interchangeably. Results cannot be interpreted asabsolute evidence of the presence or absence of malignantdisease.Performed at: [place] [facility] [id number] [facility] [address], [place], [place] [id number] Director: Jez Nazario [facility], Phone: [phone] at: [place] - [facility] [id number], [place], [place] [id number] Director: Jez Nazario [facility], Phone: [phone] at: - [facility] [address] [id number] Director: Glenn Martínez PhD, Phone: [phone] Absolute lymphocyte countOrd ered By: Dr. Simon on 03-16-2023 Lymphocytes Auto (Unsp spec) [#/Vol] 1.94 10*3/uL 0.83-4.51 [facility] Basophil percentageOrdered B y: Dr. Simon on 03-16-2023 Basophils/100 WBC (Bld) 0.8 % 0-1 [facility] Bilirubin [Mass/Vol] 0.40 mg/dL 0.20-1.00 [facility] Comment on above: For patients on eltr ombopag therapy, use of [employer] [place] TBIL is not recommended. Chloride [Moles/Vol] 105 mmol/L 98-107 [facility] Eosinophils/100 WBC (Bld) 3.7 % 0-5 [facility] Glucose [Mass/Vol] 120 mg/dL 74-106 [facility] Comment on above: Fasting Glucose resu lt from 100 to 125 mg/dL suggests IMPAIRED HOMEOSTASIS per A.D.A. criteria. Neutrophils (Bld) [#/Vol] 6.3 10*3/uL 2.0-7.7 [facility] Neutrophils/100 WBC (Bld) 65.3 % 47-70 [facility] Potassium [Moles/Vol] 3.7 mmol/L 3.5-5.1 [facility] Protein [Mass/Vol] 7.7 g/dL 6.4-8.2 [facility] Sodium [Moles/Vol] 134 mmol/L 136-145 [facility] WBC (Bld) [#/Vol] 9.7 10*3/uL 4.4-11.0 [facility] Blood erythrocytes count (nu mber/volume)Ordered By: Dr. Simon on 03-16-2023 RBC (Bld) [#/Vol] 5.26 10*6/uL 4.2-5.4 [facility] Blood hemoglobin measurement (mass/volume)Ordered By: Dr. Simon on 03-16-2023 Hemoglobin (Bld) [Mass/Vol] 16.2 g/dL 12.0-15.0 [facility] Blood lymphocytes/100 leukoc ytesOrdered By: Dr. Simon on 03-16-2023 Lymphocytes/100 WBC (Bld) 20.1 % 19-41 [facility] Blood monocytes/100 leukocyt esOrdered By: Dr. Simon on 03-16-2023 Monocytes/100 WBC (Bld) 9.7 % 0-10 [facility] Blood platelet mean volumeOr dered By: Dr. Simon on 03-16-2023 Platelet mean volume (Bld) [Entitic vol] 10.0 fL 6.2-12.0 [facility] Determination of erythrocyte mean corpuscular volume (MCV)Ordered By: Dr. Simon on 03-16-2023 MCV (RBC) [Entitic vol] 92.6 fL 81-99 [facility] Hematocrit Auto (Bld) [Volum e fraction]Ordered By: Dr. Simon on 03-16-2023 Hematocrit (Bld) [Volume fraction] 48.7 % 37-47 [facility] Laboratory - Chemistry and C hemistry - challengeOrdered By: Dr. Simon on 03-16-2023 ALP [Catalytic activity/Vol] 85 U/L 45-117 [facility] ALT [Catalytic activity/Vol] 30 U/L 13-56 [facility] CO2 [Moles/Vol] 23.0 mmol/L 21.0-32.0 [facility] Free T4 [Mass/Vol] 1.16 ng/dL 0.76-1.46 [facility] Globulin (S) [Mass/Vol] 4.2 g/dL 2.2-4.2 [facility] Natriuretic peptide B (Bld) [Mass/Vol] 29.7 pg/mL 0-100 [facility] Urea nitrogen/Creatinine [Mass ratio] 28.2 mg/mg 10-20 [facility] Laboratory - Hematology and Cell countsOrdered By: Dr. Simon on 03-16-2023 Erythrocyte distribution width (RBC) [Entitic vol] 45.7 fL 35.1-43.9 [facility] Erythrocyte distribution width (RBC) [Ratio] 13.4 % 11.6-14.6 [facility] Immature granulocytes/100 WBC (Bld) 0.400 % 0.0-0.9 [facility] Comment on above: IG% - Immature Granu locytes (promyelocytes, myelocytes and metamyelocytes) > 1% indicates that a LEFT SHIFT is Present. MCH (RBC) [Entitic mass] 30.8 pg 27.0-32.0 [facility] Nucleated RBC/100 WBC (Bld) [Ratio] 0 % 0-5 [facility] MCHC Auto (RBC) [Mass/Vol]Or dered By: Dr. Simon on 03-16-2023 MCHC (RBC) [Mass/Vol] 33.3 g/dL 32-36 [facility] No Panel InformationOrdered By: Dr. Simon on 03-16-2023 Estimated GFR (MDRD) Amer 99 mL/min >60 [facility] Comment on above: GFR Calc Estimated GFR (MDRD) Non-Af Amer 82 mL/min >60 [facility] Comment on above: Non- GFR Calc Free Triiodothyronine (T3) pg/dL 2.6 pg/mL 2.18-3.98 [facility] Thyroid Stimulating Hormone (TSH) 1.38 uIU/mL 0.358-3.74 [facility] Platelets bldOrdered By: Dr. Simon on 03-16-2023 Platelets (Bld) [#/Vol] 265 10*3/uL 150-450 [facility] Serum or plasma albumin natalio urement (mass/volume)Ordered By: Dr. Simon on 03-16-2023 Albumin [Mass/Vol] 3.5 g/dL 3.2-5.0 [facility] Serum or plasma albumin/glob ulin mass ratioOrdered By: Dr. Simon on 03-16-2023 Albumin/Globulin [Mass ratio] 0.8 {ratio} 0.9-2.4 [facility] Serum or plasma calcium natalio urement (mass/volume)Ordered By: Dr. Simon on 03-16-2023 Calcium [Mass/Vol] 9.4 mg/dL 8.5-10.1 [facility] Serum or plasma creatinine m easurement (mass/volume)Ordered By: Dr. Simon on 03-16-2023 Creatinine [Mass/Vol] 0.74 mg/dL 0.55-1.02 [facility] Comment on above: The validity of the calculated GFR & GFRAA in patients over 70 years has not been determined. Clinical correlation is essential. Serum or plasma urea nitroge n measurement (mass/volume)Ordered By: Dr. Simon on 03-16-2023 Urea nitrogen [Mass/Vol] 21 mg/dL 7-18 [facility] Thin prep Papanicolaou smear with manual screeningOrdered By: Dr. Simon on 03-16-2023 Thin prep Papanicolaou smear with manual screening 16 U/L 15-37 [facility] Thin prep Papanicolaou smear with manual screening 6 5-15 [facility] LABORATORYOrdered By: SYSTEM SYSTEM on 02-23-2023 Calcium [...] Auto (Unsp spec) [#/Vol] 1.60 10*3/uL 0.83-4.51 [facility] Work Phone: Basophil percentageon 2021 Basophils/100 WBC (Bld) 0.9 % 0-1 [facility] Work Phone: Chloride [Moles/Vol] 108 mmol/L 98-107 [facility] Work Phone: Eosinophils/100 WBC (Bld) 3.2 % 0-5 [facility] Work Phone: Glucose [Mass/Vol] 107 mg/dL 74-106 [facility] Work Phone: Comment on above: Fasting Glucose resu lt from 100 to 125 mg/dL suggests IMPAIRED HOMEOSTASIS per A.D.A. criteria. Neutrophils (Bld) [#/Vol] 5.1 10*3/uL 2.0-7.7 [facility] Work Phone: Neutrophils/100 WBC (Bld) 64.8 % 47-70 [facility] Work Phone: Potassium [Moles/Vol] 3.7 mmol/L 3.5-5.1 [facility] Work Phone: Sodium [Moles/Vol] 140 mmol/L 136-145 [facility] Work Phone: WBC (Bld) [#/Vol] 7.9 10*3/uL 4.4-11.0 [facility] Work Phone: [phone] Blood erythrocytes count (nu mber/volume)on 07-03-2022 RBC (Bld) [#/Vol] 5.20 10*6/uL [facility].2[facility] Blood hemoglobin measurement (mass/volume)on 07-03-2022 Hemoglobin (Bld) [Mass/Vol] 15.9 g/dL 12.0-15.0 [facility] Work Phone: [phone] Blood lymphocytes/100 leukoc yteson 07-03-2022 Lymphocytes/100 WBC (Bld) 20.2 % 19-41 [facility] Work Phone: [phone] Blood monocytes/100 leukocyt eson 07-03-2022 Monocytes/100 WBC (Bld) 10.5 % 0-10 [facility] Work Phone: [phone] Blood platelet mean volumeon 07-03-2022 Platelet mean volume (Bld) [Entitic vol] 10.0 fL 6.2-12.0 [facility] Work Phone: Determination of erythrocyte mean corpuscular volume (MCV)on 07-03-2022 MCV (RBC) [Entitic vol] 92.7 fL 81-99 [facility] Work Phone: Hematocrit Auto (Bld) [Volum e fraction]on 07-03-2022 Hematocrit (Bld) [Volume fraction] 48.2 % 37-47 [facility] Work Phone: Laboratory - Chemistry and C hemistry - challengeon 07-03-2022 CO2 [Moles/Vol] 26.0 mmol/L 21.0-32.0 [facility] Work Phone: [phone] Urea nitrogen/Creatinine [Mass ratio] 23.3 mg/mg 10-20 [facility] Work Phone: Laboratory - Hematology and Cell countson 07-03-2022 Erythrocyte distribution width (RBC) [Entitic vol] 46.7 fL 35.1-43.9 [facility] Work Phone: Erythrocyte distribution width (RBC) [Ratio] 13.7 % 11.6-14.6 [facility] Work Phone: Immature granulocytes/100 WBC (Bld) 0.400 % 0.0-0.9 [facility] Work Phone: Comment on above: IG% - Immature Granu locytes (promyelocytes, myelocytes and metamyelocytes) > 1% indicates that a LEFT SHIFT is Present. MCH (RBC) [Entitic mass] 30.6 pg 27.0-32.0 [facility] Work Phone: Nucleated RBC/100 WBC (Bld) [Ratio] 0 % 0-5 [facility] Work Phone: MCHC Auto (RBC) [Mass/Vol]on 07-03-2022 MCHC (RBC) [Mass/Vol] 33.0 g/dL 32-36 [facility] Work Phone: No Panel Informationon 07-03 Estimated GFR (MDRD) Amer 95 mL/min >60 [facility] Work Phone: Comment on above: GFR Calc Estimated GFR (MDRD) Non-Af Amer 78 mL/min >60 [facility] Work Phone: Comment on above: Non- GFR Calc Thyroid Stimulating Hormone (TSH) 1.27 uIU/mL 0.358-3.74 [facility] Work Phone: Platelets bldon 07-03-2022 Platelets (Bld) [#/Vol] 257 10*3/uL 150-450 [facility] Work Phone: Serum or plasma calcium natalio urement (mass/volume)on 07-03-2022 Calcium [Mass/Vol] 9.0 mg/dL 8.5-10.1 [facility] Work Phone: Serum or plasma creatinine m easurement (mass/volume)on 07-03-2022 Creatinine [Mass/Vol] 0.77 mg/dL 0.55-1.02 [facility] Work Phone: Comment on above: The validity of the calculated GFR & GFRAA in patients over 70 years has not been determined. Clinical correlation is essential. Serum or plasma urea nitroge n measurement (mass/volume)on 07-03-2022 Urea nitrogen [Mass/Vol] 18 mg/dL 7-18 [facility] Work Phone: Thin prep Papanicolaou smear with manual screeningon 07-03-2022 Thin prep Papanicolaou smear with manual screening 6 5-15 [facility] Work Phone: Basophil percentageon 2021 Chloride [Moles/Vol] 109 mmol/L 98-107 [facility] Work Phone: Glucose [Mass/Vol] 107 mg/dL 74-106 [facility] Work Phone: Comment on above: Fasting Glucose resu lt from 100 to 125 mg/dL suggests IMPAIRED HOMEOSTASIS per A.D.A. criteria. Potassium [Moles/Vol] 3.8 mmol/L 3.5-5.1 [facility] Work Phone: Sodium [Moles/Vol] 140 mmol/L 136-145 [facility] Work Phone: Laboratory - Chemistry and C hemistry - challengeon 03-15-2022 CO2 [Moles/Vol] 24.0 mmol/L 21.0-32.0 [facility] Work Phone: Urea nitrogen/Creatinine [Mass ratio] 28.8 mg/mg 10-20 [facility] Work Phone: No Panel Informationon 03-15 Estimated Creatinine Clearance Calc 45.20 ml/min [facility] Work Phone: Estimated GFR (MDRD) Amer 107 mL/min >60 [facility] Work Phone: Comment on above: GFR Calc Estimated GFR (MDRD) Non-Af Amer 89 mL/min >60 [facility] Work Phone: Comment on above: Non- GFR Calc Serum or plasma calcium natalio urement (mass/volume)on 03-15-2022 Calcium [Mass/Vol] 8.5 mg/dL 8.5-10.1 [facility] Work Phone: Serum or plasma creatinine m easurement (mass/volume)on 03-15-2022 Creatinine [Mass/Vol] 0.69 mg/dL 0.55-1.02 [facility] Work Phone: Comment on above: The validity of the calculated GFR & GFRAA in patients over 70 years has not been determined. Clinical correlation is essential. Serum or plasma urea nitroge n measurement (mass/volume)on 03-15-2022 Urea nitrogen [Mass/Vol] 20 mg/dL 7-18 [facility] Work Phone: Thin prep Papanicolaou smear with manual screeningon 03-15-2022 Thin prep Papanicolaou smear with manual screening 7 5-15 [facility] Work Phone: Absolute lymphocyte counton 03-14-2022 Lymphocytes Auto (Unsp spec) [#/Vol] 2.10 10*3/uL 0.83-4.51 [facility] Work Phone: Basophil percentageon 2021 Basophils/100 WBC (Bld) 0.8 % 0-1 [facility] Work Phone: Chloride [Moles/Vol] 109 mmol/L 98-107 [facility] Work Phone: Eosinophils/100 WBC (Bld) 3.0 % 0-5 [facility] Work Phone: Glucose [Mass/Vol] 121 mg/dL 74-106 [facility] Work Phone: Comment on above: Fasting Glucose resu lt from 100 to 125 mg/dL suggests IMPAIRED HOMEOSTASIS per A.D.A. criteria. Neutrophils (Bld) [#/Vol] 5.6 10*3/uL 2.0-7.7 [facility] Work Phone: Neutrophils/100 WBC (Bld) 62.5 % 47-70 [facility] Work Phone: Potassium [Moles/Vol] 3.4 mmol/L 3.5-5.1 [facility] Work Phone: Sodium [Moles/Vol] 141 mmol/L 136-145 [facility] Work Phone: WBC (Bld) [#/Vol] 9.0 10*3/uL 4.4-11.0 [facility] Work Phone: Blood erythrocytes count (nu mber/volume)on 03-14-2022 RBC (Bld) [#/Vol] 5.60 10*6/uL 4.2-5.4 [facility]: Blood hemoglobin measurement (mass/volume)on 03-14-2022 Hemoglobin (Bld) [Mass/Vol] 17.1 g/dL 12.0-15.0 [facility] Work Phone: Blood lymphocytes/100 leukoc yteson 03-14-2022 Lymphocytes/100 WBC (Bld) 23.4 % 19-41 [facility] Work Phone: Blood manual differential co mment interpretation (narrative result)on 03-14-2022 Manual differential comment Ricardo (Bld) [Interp] SCANNED [facility] Work Phone: Comment on above: LYMPHOCYTOSIS NOTED Blood monocytes/100 leukocyt eson 03-14-2022 Monocytes/100 WBC (Bld) 9.7 % 0-10 [facility] Work Phone: Blood platelet mean volumeon 03-14-2022 Platelet mean volume (Bld) [Entitic vol] 10.0 fL 6.2-12.0 [facility] Work Phone: Determination of erythrocyte mean corpuscular volume (MCV)on 03-14-2022 MCV (RBC) [Entitic vol] 91.8 fL 81-99 [facility] Work Phone: Hematocrit Auto (Bld) [Volum e fraction]on 03-14-2022 Hematocrit (Bld) [Volume fraction] 51.4 % 37-47 [facility] Work Phone: INR in Blood by Coagulation assayon 03-14-2022 INR Coag (Bld) [Relative time] 2.1 {INR} [facility] Work Phone: Laboratory - Chemistry and C hemistry - challengeon 03-14-2022 CO2 [Moles/Vol] 27.0 mmol/L 21.0-32.0 [facility] Work Phone: Urea nitrogen/Creatinine [Mass ratio] 23.5 mg/mg 10-20 [facility] Work Phone: Laboratory - Coagulationon 0 03-14-2022 aPTT Coag (Bld) [Time] 43.5 s [facility] Work Phone: PT Coag (PPP) [Time] 22.9 s 11.7-14.9 [facility] Work Phone: Laboratory - Hematology and Cell countson 03-14-2022 Erythrocyte distribution width (RBC) [Entitic vol] 46.1 fL 35.1-43.9 [facility] Work Phone: Erythrocyte distribution width (RBC) [Ratio] 13.5 % 11.6-14.6 [facility] Work Phone: Immature granulocytes/100 WBC (Bld) 0.600 % 0.0-0.9 [facility] Work Phone: Comment on above: IG% - Immature Granu locytes (promyelocytes, myelocytes and metamyelocytes) > 1% indicates that a LEFT SHIFT is Present. MCH (RBC) [Entitic mass] 30.5 pg 27.0-32.0 [facility] Work Phone: Nucleated RBC/100 WBC (Bld) [Ratio] 0 % 0-5 [facility] Work Phone: MCHC Auto (RBC) [Mass/Vol]on 03-14-2022 MCHC (RBC) [Mass/Vol] 33.3 g/dL 32-36 [facility] Work Phone: No Panel Informationon 03-14 Troponin I High Sensitivity 8 pg/mL 3.0-54.0 [facility] Work Phone: Comment on above: Please Note: New Ana t Units and Gender Specific Reference Ranges. For more information see Policy Stat Procedure [place] High Sensitivity Troponin (TNIH) and attachments. D-Dimer Quantitative (PE/DVT) < 0.27 FEU/ug/m 0.27-0.49 [facility] Work Phone: Comment on above: NORMAL D-Dimer level (<0.50) indicates no DVT or PE. Estimated Creatinine Clearance Calc 45.20 ml/min [facility] Work Phone: Estimated GFR (MDRD) Amer 96 mL/min >60 [facility] Work Phone: Comment on above: GFR Calc Estimated GFR (MDRD) Non-Af Amer 79 mL/min >60 [facility] Work Phone: Comment on above: Non- GFR Calc Troponin I High Sensitivity 3 pg/mL 3.0-54.0 [facility] Work Phone: Comment on above: Please Note: New Ana t Units and Gender Specific Reference Ranges. For more information see Policy Stat Procedure [place] High Sensitivity Troponin (TNIH) and attachments. Platelets bldon 03-14-2022 Platelets (Bld) [#/Vol] 275 10*3/uL 150-450 [facility] Work Phone: Serum or plasma calcium natalio urement (mass/volume)on 03-14-2022 Calcium [Mass/Vol] 9.7 mg/dL 8.5-10.1 [facility] Work Phone: Serum or plasma creatinine m easurement (mass/volume)on 03-14-2022 Creatinine [Mass/Vol] 0.77 mg/dL 0.55-1.02 [facility] Work Phone: Comment on above: The validity of the calculated GFR & GFRAA in patients over 70 years has not been determined. Clinical correlation is essential. Serum or plasma urea nitroge n measurement (mass/volume)on 03-14-2022 Urea nitrogen [Mass/Vol] 18 mg/dL 7-18 [facility] Work Phone: Thin prep Papanicolaou smear with manual screeningon 03-14-2022 Thin prep Papanicolaou smear with manual screening 5 5-15 [facility] Work Phone: Whole blood hemoglobin A1c/t otal hemoglobin ratio (mass fraction)on 03-14-2022 HbA1c (Bld) [Mass fraction] 5.6 % 3.8-5.6 [facility] Work Phone: Comment on above: Normal < 5.7 % Predi abetic 5.7 - 6.4 % Diabetic >or= 6.5 % Please note range changes. Laboratory - Chemistry and C hemistry - challengeon 03-10-2022 Free T4 [Mass/Vol] 1.18 ng/dL 0.76-1.46 [facility] Work Phone: No Panel Informationon 03-10 Thyroid Stimulating Hormone (TSH) 1.48 uIU/mL 0.358-3.74 [facility] Work Phone: COLLEEN SCREENING W TOMOon 02-17 [facility] Basophil percentageon 2021 Bilirubin [Mass/Vol] 0.30 mg/dL 0.20-1.00 [facility] Work Phone: Comment on above: For patients on eltr ombopag therapy, use of Dimension [place] TBIL is not recommended. Chloride [Moles/Vol] 105 mmol/L 98-107 [facility] Work Phone: Glucose [Mass/Vol] 110 mg/dL 74-106 [facility] Work Phone: Comment on above: Fasting Glucose resu lt from 100 to 125 mg/dL suggests IMPAIRED HOMEOSTASIS per A.D.A. criteria. Potassium [Moles/Vol] 3.5 mmol/L 3.5-5.1 [facility] Work Phone: Protein [Mass/Vol] 6.9 g/dL 6.4-8.2 [facility] Work Phone: Sodium [Moles/Vol] 139 mmol/L 136-145 [facility] Work Phone: Laboratory - Chemistry and C hemistry - challengeon 01-08-2022 ALP [Catalytic activity/Vol] 90 U/L 45-117 [facility] Work Phone: ALT [Catalytic activity/Vol] 33 U/L 13-56 [facility] Work Phone: CO2 [Moles/Vol] 26.0 mmol/L 21.0-32.0 [facility] Work Phone: Free T4 [Mass/Vol] 1.06 ng/dL 0.76-1.46 [facility] Work Phone: Globulin (S) [Mass/Vol] 3.6 g/dL 2.2-4.2 [facility] Work Phone: Urea nitrogen/Creatinine [Mass ratio] 20.5 mg/mg 10-20 [facility] Work Phone: No Panel Informationon 01-08 Estimated GFR (MDRD) Amer 94 mL/min >60 [facility] Work Phone: Comment on above: GFR Calc Estimated GFR (MDRD) Non-Af Amer 78 mL/min >60 [facility] Work Phone: Comment on above: Non- GFR Calc Free Triiodothyronine (T3) pg/dL 2.6 pg/mL 2.18-3.98 [facility] Work Phone: Thyroid Stimulating Hormone (TSH) 1.85 uIU/mL 0.358-3.74 [facility] Work Phone: Serum or plasma albumin natalio urement (mass/volume)on 01-08-2022 Albumin [Mass/Vol] 3.3 g/dL 3.2-5.0 [facility] Work Phone: Serum or plasma albumin/glob ulin mass ratioon 01-08-2022 Albumin/Globulin [Mass ratio] 0.9 {ratio} 0.9-2.4 [facility] Work Phone: Serum or plasma calcium natalio urement (mass/volume)on 01-08-2022 Calcium [Mass/Vol] 8.6 mg/dL 8.5-10.1 [facility] Work Phone: Serum or plasma cortisol jhon surement (mass/volume)on 01-08-2022 Cortisol [Mass/Vol] 14.40 ug/dL 3.44-22.45 [facility] Work Phone: Comment on above: Adult (AM) 5.27 - 22 .45 ug/dL Adult (PM) 3.44 - 16.76 ug/dLPlease note revised CORTISOL reference range effective 2020. Serum or plasma creatinine m easurement (mass/volume)on 01-08-2022 Creatinine [Mass/Vol] 0.78 mg/dL 0.55-1.02 [facility] Work Phone: Comment on above: The validity of the calculated GFR & GFRAA in patients over 70 years has not been determined. Clinical correlation is essential. Serum or plasma urea nitroge n measurement (mass/volume)on 01-08-2022 Urea nitrogen [Mass/Vol] 16 mg/dL 7-18 [facility] Work Phone: Thin prep Papanicolaou smear with manual screeningon 01-08-2022 Thin prep Papanicolaou smear with manual screening 19 U/L 15-37 [facility] Work Phone: Thin prep Papanicolaou smear with manual screening 8 5-15 [facility] Work Phone: Vital Signs Date Time Vital Sign Value Performing Clinician Rennyi andrew 06-22-2025 16:38-0400 Body height 162.[address] Farnaz Simon MD Work Phone: [facility] 06-22-2025 16:38-0400 Body mass index (BMI) [Ratio] 43.6 kg/m2 Dr. Farnaz Simon MD Work Phone: 0(122)475-920045 [place] [address] 06-22-2025 16:38-0400 Body temperature 98.4 [degF] Dr. Farnaz Simon MD Work Phone: 4(041)302-292983 [place] [address] 06-22-2025 16:38-0400 Body weight 115.[address] Farnaz Simon MD Work Phone: 2(622)370-330683 [place] [address] 06-22-2025 16:38-0400 Diastolic blood pressure 85 mm[Hg] Dr. Farnaz Simon MD Work Phone: 0(477)335-474683 [place] [address] 06-22-2025 16:38-0400 Heart rate 68 /min Dr. Farnaz Simon MD Work Phone: 8(815)688-584783 [place] [address] 06-22-2025 16:38-0400 Respiratory rate 18 /min Dr. Farnaz Simon MD Work Phone: 1(631)107-575483 [place] [address] 06-22-2025 16:38-0400 SaO2% (BldA) [Mass fraction] 92 % Dr. Farnaz Simon MD Work Phone: 4(799)937-315683 [place] [address] 06-22-2025 16:38-0400 Systolic blood pressure 136 mm[Hg] Dr. Farnaz Simon MD Work Phone: 7(482)925-302283 [place] [address] 06-08-2025 15:23-0400 Body height 162.[address] Farnaz Simon MD Work Phone: 5(140)544-104145 [place] [address] 06-08-2025 15:23-0400 Body mass index (BMI) [Ratio] 43.7 kg/m2 Dr. Farnza Simon MD Work Phone: 2(039)815-125683 [place] [address] 06-08-2025 15:23-0400 Body temperature 98.4 [degF] Dr. Farnaz Simon MD Work Phone: 3(928)215-458183 [place] [address] 06-08-2025 15:23-0400 Body weight 115.[address] Farnaz Simon MD Work Phone: [facility] 06-08-2025 15:23-0400 Diastolic blood pressure 83 mm[Hg] Dr. Farnaz Simon MD Work Phone: [facility] 06-08-2025 15:23-0400 Heart rate 62 /min Dr. Farnaz Simon MD Work Phone: 1(834)272-596783 [place] [address] 06-08-2025 15:23-0400 Respiratory rate 18 /min Dr. Farnaz Simon MD Work Phone: 8(940)774-743245 [place] [address] 06-08-2025 15:23-0400 SaO2% (BldA) [Mass fraction] 93 % Dr. Farnaz Simon MD Work Phone: 5(706)434-583283 [place] [address] 06-08-2025 15:23-0400 Systolic blood pressure 145 mm[Hg] Dr. Farnaz Simon MD Work Phone: 2(646)416-043283 [place] [address] 05-18-2025 15:35-0400 Body height 162.[address] Farnaz Simon MD Work Phone: 8(832)379-687683 [place] [address] 05-18-2025 15:35-0400 Body mass index (BMI) [Ratio] 43.6 kg/m2 Dr. Farnaz Simon MD Work Phone: 0(480)694-205883 [place] [address] 05-18-2025 15:35-0400 Body temperature 95.3 [degF] Dr. Farnaz Simon MD Work Phone: 5(185)168-483683 [place] [address] 05-18-2025 15:35-0400 Body weight 115.[address] Farnaz Simon MD Work Phone: 5(867)505-606983 [place] [address] 05-18-2025 15:35-0400 Diastolic blood pressure 85 mm[Hg] Dr. Farnaz Simon MD Work Phone: 4(635)281-642645 [place] [address] 05-18-2025 15:35-0400 Heart rate 71 /min Dr. Farnaz Simon MD Work Phone: 4(187)110-413945 [place] [address] 05-18-2025 15:35-0400 Respiratory rate 15 /min Dr. Farnaz Simon MD Work Phone: [facility] 05-18-2025 15:35-0400 SaO2% (BldA) [Mass fraction] 95 % Dr. Farnaz Simon MD Work Phone: [facility] 05-18-2025 15:35-0400 Systolic blood pressure 131 mm[Hg] Dr. Farnaz Simon MD Work Phone: [facility] 10-19-2024 08:49-0500 Body height 163.2 cm Robert Garsia MD Work Phone: [facility] 10-19-2024 08:49-0500 Body mass index (BMI) [Ratio] 42.58 kg/m2 Robert Garsia MD Work Phone: [facility] 10-19-2024 08:49-0500 Body weight 113.4 kg Robert Garsia MD Work Phone: [facility] 10-19-2024 08:49-0500 Diastolic blood pressure 82 mm[Hg] Robert Garsia MD Work Phone: [facility] 10-19-2024 08:49-0500 Systolic blood pressure 128 mm[Hg] Robert Garsia MD Work Phone: [facility] 03-17-2024 13:19-0400 Body temperature 97.9 [degF] Dr. Farnaz Simon Work Phone: [facility] 03-17-2024 13:19-0400 Diastolic blood pressure 91 mm[Hg] Dr. Farnaz Simon Work Phone: [facility] 03-17-2024 13:19-0400 Heart rate 67 /min Dr. Farnaz Simon Work Phone: [facility] 03-17-2024 13:19-0400 Respiratory rate 16 /min Dr. Farnaz Simon Work Phone: [facility] 03-17-2024 13:19-0400 SaO2% (BldA) [Mass fraction] 100 % Dr. Farnaz Simon Work Phone: [facility] 03-17-2024 13:19-0400 Systolic blood pressure 129 mm[Hg] Dr. Farnaz Simon Work Phone: [facility] 03-17-2024 08:07-0400 Inhaled oxygen flow rate 4 L/min Dr. Farnaz Simon Work Phone: [facility] 03-16-2024 17:24-0400 Body height 162.[address] Farnaz Simon Work Phone: [facility] 03-16-2024 16:24-0400 Body mass index (BMI) [Ratio] 42.7 kg/m2 Dr. Farnaz Simon Work Phone: [facility] 03-16-2024 16:24-0400 Body weight 112.[address] Farnaz Simon Work Phone: [facility] 04-10-2023 13:56-0400 Body height 162.[address] Arslan Simon Work Phone: [facility] 04-10-2023 13:56-0400 Body mass index (BMI) [Ratio] 43.1 kg/m2 Dr. Arslan Simon Work Phone: [facility] 04-10-2023 13:56-0400 Body temperature 97.3 [degF] Dr. Arslan Simon Work Phone: [facility] 04-10-2023 13:56-0400 Body weight 114.[address] Arslan Simon Work Phone: [facility] 04-10-2023 13:56-0400 Diastolic blood pressure 84 mm[Hg] Dr. Arslan Simon Work Phone: [facility] 04-10-2023 13:56-0400 Heart rate 66 /min Dr. Arslan Simon Work Phone: [facility] 04-10-2023 13:56-0400 Respiratory rate 18 /min Dr. Arslan Simon Work Phone: [facility] 04-10-2023 13:56-0400 SaO2% (BldA) [Mass fraction] 95 % Dr. Arslan Simon Work Phone: [facility] 04-10-2023 13:56-0400 Systolic blood pressure 148 mm[Hg] Dr. Arslan Simon Work Phone: [facility] 03-15-2022 10:57-0400 Body temperature 97.9 [degF] Dr. Arslan Simon Work Phone: [facility] Work Phone: 03-15-2022 10:57-0400 Diastolic blood pressure 87 mm[Hg] Dr. Arslan Simon Work Phone: [facility] Work Phone: 03-15-2022 10:57-0400 Heart rate 84 /min Dr. Arslan Simon Work Phone: [facility] Work Phone: 03-15-2022 10:57-0400 Respiratory rate 18 /min Dr. Arslan Simon Work Phone: [facility] Work Phone: 03-15-2022 10:57-0400 SaO2% (BldA) [Mass fraction] 92 % Dr. Arslan Simon Work Phone: [facility] Work Phone: 03-15-2022 10:57-0400 Systolic blood pressure 136 mm[Hg] Dr. Arslan Simon Work Phone: [facility] Work Phone: 03-14-2022 18:36-0400 Body height 162.[address] Arslan Simon Work Phone: [facility] Work Phone: 03-14-2022 18:36-0400 Body mass index (BMI) [Ratio] 42.3 kg/m2 Dr. Arslan Simon Work Phone: [facility] Work Phone: 03-14-2022 18:36-0400 Body weight 111.[address] Arslan Simon Work Phone: [facility] Work Phone: 03-14-2022 18:14-0400 Body temperature 97.3 [degF] [facility] Work Phone: 03-14-2022 18:14-0400 Diastolic blood pressure 92 mm[Hg] [facility] Work Phone: 03-14-2022 18:14-0400 Heart rate 72 /min [facility] Work Phone: 03-14-2022 18:14-0400 Respiratory rate 15 /min [facility] Work Phone: 03-14-2022 18:14-0400 Systolic blood pressure 132 mm[Hg] [facility] Work Phone: 03-14-2022 18:05-0400 SaO2% (BldA) [Mass fraction] 96 % [facility] Work Phone: 03-14-2022 14:59-0400 Body height 162.56 cm [facility] Work Phone: 03-14-2022 14:59-0400 Body mass index (BMI) [Ratio] 43.2 kg/m2 [facility] Work Phone: 03-14-2022 14:59-0400 Body weight 114.1 kg [facility] Work Phone: 02-17-2022 08:37-0400 Body height 163.8 cm Robert Garsia MD Work Phone: [facility] 02-17-2022 08:37-0400 Body weight 112.95 kg Robert Garsia MD Work Phone: [facility] 02-17-2022 08:37-0400 Diastolic blood pressure 82 mm[Hg] Robert Garsia MD Work Phone: [facility] 02-17-2022 08:37-0400 Systolic blood pressure 138 mm[Hg] Robert Garsia MD Work Phone: [facility] Encounters Encounter Date Encounter Type Care Provider Facility Start: 06-22-2025 End: 06-22-[address] Rudy Ortiz MD -[facility] Work Phone: Start: 06-22-2025 End: 06-22-[address] Farnaz Simon MD Work Phone: -[facility] Start: 06-16-2025 End: 06-16-[address] Farnaz Simon MD Work Phone: [facility] Start: 06-16-2025 End: 06-16-[address] Rudy Ortiz MD -[facility] Work Phone: Start: 06-16-2025 End: 06-16-2025 ambulatory [facility] Facility:[facility] Start: 06-08-2025 End: 06-08-[address] Farnaz Simon MD Work Phone: -Laboratory Start: 06-08-2025 End: 06-08-[address] Rudy Ortiz MD -Laboratory Work Phone: Start: 06-08-2025 End: 06-08-[address] Rudy Ortiz MD -[facility] Work Phone: Start: 06-08-2025 End: 06-08-[address] Farnaz Simon MD Work Phone: -[facility] Start: 06-08-2025 End: 06-08-2025 ambulatory [facility] Facility:[facility] Start: 05-18-[address] Rudy Ortiz MD -[facility] Start: 05-18-2025 End: 05-18-[address] Rudy Ortiz MD -[facility] [place] Work Phone: Start: 05-18-2025 End: 05-18-[address] Farnaz Simon MD Work Phone: [facility] Work Phone: Start: 04-11-2025 ambulatory Farnaz Simon Faci lity:[facility] Start: 04-11-2025 Non-patient / Non-visit Dr. Awad Of deanna [facility] Start: 04-11-2025 End: 04-11-2025 Patient encounter procedure Sindihiren Roa BACKHOE OPERATOR-C -Cardiovascular Services Work Phone: Start: 04-11-2025 End: 04-11-2025 ambulatory Farnaz Simon Facility:[facility] Start: 03-20-2025 End: 03-20-[address] FARNAZ SIMON MD Facility:[facility] Start: 03-20-2025 End: 03-20-2025 Patient encounter procedure SINDI ROA WIRELESS OPERATOR-MULTI SHARE PROGRAM COORDINATOR [facility] Start: 02-22-2025 End: 02-22-[address] Farnaz Simon MD Work Phone: [facility] Work Phone: Start: 02-22-2025 End: 02-22-[address] Mikhail Cardenas MD -[facility] Work Phone: Start: 02-22-2025 End: 02-22-2025 ambulatory Farnaz Simon Facility:[facility] Start: 02-13-2025 Non-patient / Non-visit Dr. Awad Of deanna [facility] Start: 02-13-2025 End: 02-13-[address] Farnaz Simon MD Work Phone: [facility] Work Phone: Start: 02-13-2025 End: 02-13-[address] Farnaz Simon MD -Cardiovascular Services Work Phone: Start: 02-13-2025 End: 02-13-2025 ambulatory Farnaz Simon Facility:[facility] Start: 01-05-2025 End: 01-05-[address] Farnaz Simon MD -Laboratory, [facility] Start: 01-05-2025 End: 01-05-2025 ambulatory Farnaz Simon Facility:[facility] Start: 01-04-2025 End: 01-04-[address] Farnaz Simon MD -Radiology, [place] Work Phone: Start: 01-04-2025 End: 01-04-2025 ambulatory Farnaz Simon Facility:[facility] Start: 01-03-2025 End: 03-05-2025 Follow-up encounter Lalo King MD Work Phone: OB/Gynecology Start: 01-02-2025 End: 01-02-2025 ambulatory ROBERT GARSIA Facility:[facility] Start: 01-02-2025 Encounter for gynecological examination (general) (routine) without abnormal findings ROBERT GARSIA [place] Start: 01-02-2025 End: 01-02-2025 [facility] Start: 01-02-2025 End: 01-02-2025 Subsequent hospital visit by physician Screen Mammo [facility] Comment on above: Encounter for gyneco logical examination (general) (routine) without abnormal findings [Z01.419] Start: 10-19-2024 End: 10-19-2024 ambulatory ROBERT GARSIA Facility:[facility] Start: 10-19-2024 End: 10-19-2024 Patient encounter procedure Robert Garsia MD Work Phone: OB/Gynecology Comment on above: Encounter for gyneco logical examination (general) (routine) without abnormal findings (Primary Dx); Encounter for screening mammogram for breast cancer Start: 10-19-2024 End: 10-19-2024 Patient encounter status Robert Garsia MD Work Phone: [facility] Start: 03-16-2024 Non-patient / Non-visit Dr. Danyell Simon Work Phone: [facility] Work Phone: Start: 03-16-2024 End: 03-17-2024 Evaluation and management of inpatient Dr. Farnaz Simon Work Phone: [facility]-Medical Surgical 3 Work Phone: Start: 03-16-2024 End: 03-17-[address] Farnaz Simon Work Phone: [facility] Work Phone: Start: 03-14-2024 End: 03-15-[address] CHADD BRAND MD Facility:B Start: 03-14-2024 End: 03-14-[address] CHADD BRAND MD [facility] Start: 03-02-2024 End: 03-02-[address] Farnaz Simon Work Phone: [facility] Work Phone: Start: 02-24-2024 End: 02-24-[address] Farnaz Simon Work Phone: [facility] Work Phone: Start: 02-24-2024 End: 02-24-[address] Arslan Simon Work Phone: [facility] Work Phone: Start: 02-19-2024 End: 02-19-2024 Non-patient / Non-visit Dr. Arslan Simon Work Phone: [facility] Work Phone: Start: 02-19-2024 End: 02-19-[address] [facility] Work Phone: Start: 02-19-2024 End: 02-19-2024 Admission to same day surgery center Dr. Arslan Simon Work Phone: [facility]-Surgical Day Care Start: 02-19-2024 End: 02-19-[address] Arslan Simon Work Phone: [facility] Work Phone: Start: 01-01-2024 Documentation procedure Mammog indigo Coordinator [facility] Start: 01-01-2024 Letter encounter Mammography Coordinator [facility] Department Start: 12-31-2023 End: 12-31-2023 Subsequent hospital visit by physician Screen Mammo [facility] Comment on above: Encounter for screen ing mammogram for malignant neoplasm of breast [Z12.31] Start: 12-10-2023 End: 12-10-2023 ambulatory [facility] Work Phone: Start: 12-10-2023 End: 12-10-2023 Patient encounter procedure [facility]-Outpatient Bone Densitometry Work Phone: Start: 11-17-2023 End: 11-17-2023 ambulatory [facility] Work Phone: Start: 11-17-2023 End: 11-17-2023 [facility] Work Phone: Start: 11-04-2023 End: 11-04-2023 ambulatory [facility] Work Phone: Start: 11-04-2023 End: 11-04-2023 Patient encounter [facility] Work [facility] Start: 08-21-2023 End: 08-22-[address] FARNAZ SIMON MD Facility:[facility] Start: 08-21-2023 End: 08-21-[address] CHADD BRAND MD [facility] Start: 07-17-2023 End: 07-17-[address] Arslan Simon Work Phone: [facility] Work Phone: Start: 07-17-2023 End: 07-17-[address] Arslan Simon Work Phone: [facility]-Radiology, [facility] Work Phone: Start: 04-10-2023 End: 04-10-[address] Arslan Simon Work Phone: [facility] Work Phone: Start: 04-10-2023 End: 04-10-[address] Arslan Simon Work Phone: [facility] Start: 03-19-2023 End: 03-19-2023 ambulatory [facility] Work Phone: Start: 03-19-2023 End: 03-19-2023 Patient encounter procedure [facility]-Ultrasound, [facility] Start: 03-18-2023 End: 03-18-2023 [facility] Start: 03-16-2023 End: 03-16-2023 ambulatory [facility] Work Phone: Start: 03-16-2023 End: 03-16-2023 Patient encounter procedure [facility] Start: 02-23-2023 End: 02-23-[address] HCADD BRAND MD [facility] Start: 02-10-2023 End: 02-10-[address] CHADD BRAND MD [facility] Start: 07-03-2022 End: 07-03-[address] Arslan Simon Work Phone: [facility] Start: 03-15-2022 Non-patient / Non-visit Dr. Danyell Simon Work Phone: [facility] Start: 03-15-2022 Non-patient / Non-visit Dr. Danyell Simon Work Phone: [facility] Start: 03-15-2022 Non-patient / Non-visit Dr. Danyell Simon Work Phone: [facility] Start: 03-14-2022 End: 03-15-2022 Evaluation and management of inpatient [facility] Start: 03-10-2022 End: 03-10-2022 Patient encounter procedure [facility] Start: 02-17-2022 End: 02-17-2022 Subsequent [facility] visit by [facility] Comment on above: Encounter for gyneco [...] Start: 01-08-2022 End: 01-08-2022 Patient encounter procedure [facility] Procedures Date Procedure Procedure Detail Performing Clinician Start: 06-16-2025 X-ray of chest, PA and lateral views Dr. Farnaz Simon MD Work Phone: Start: 06-16-[address] Farnaz Simon MD Work Phone: Start: 06-08-2025 D-dimer assay, quantitative Dr. Vannesa Simon MD Work Phone: Comment on above: NORMAL D-Dimer level (<0.50) indicates n o DVT or PE. Start: 06-08-[address] Esa Simon MD Work Phone: Start: 06-08-2025 Total iron binding capacity measurement Dr. Farnaz Simon MD Work Phone: Start: 05-18-[address] Farnaz Simon MD Work Phone: Comment on above: Test Ordered: [id number] JAK2 V617F, reflex to [id number](s) [id number] V617F Resultwas developed and its performance characteristicsdetermined by [employer]. It has not been cleared or approvedby [...] G to T nucleotide change encoding the Y298Dmbacxctm was not detected. This result does not [...] In particular, mutations in exon 12 of GMB8preb been described in approximately 3% of patients withPV. JAK2 mutation allele burden correlates with clinicalphenotype, with low levels of mutant allelecharacterized by thrombocytosis, intermediate levels witherythrocytosis, and high mutant allele burden correlatingwith enhanced myelopoiesis of the BM, leukocytosis,increasing spleen size, and circulating JH76-lclczpghgocza. Limitations This assay has a sensitivity of approximately 1% VAFfor JAK2 V617F, and 2.5% VAF for other mutations in GKB5azksr 12 to 15. Deletions in JAK2 up to 6 bp and insertionsup to 34 bp have been detected in validation studies.Method Comment Reference Range: .Amplicon-based next generation sequencing.References Comment Reference Range: .Zoshrojas N, Aldulcei Y, Abalaleah H, Pepper S. Detection ofmutations in JAK2 exons 12-15 by Gerry sequencing. Int JLab Hematol. 2016 Dec;38(1):34-41. doi: 10.1111/ijlh.31687.Epub 2014Aug 03. PMID: 78654065.Nicky DA, Chago A, Go R, Art J, Domi MJ, Juan Carlos MM, Ashley CD, Marisol M, Franchesca JW. The 2016revision to the World Health Organization classification ofmyeloid neoplasms and acute leukemia. Blood. 2016 ;127(20):2391-405. doi: 10.1182/bgbph-[id number].Epub 2016 Mar 03. PMID: 98745729.Nadine W, Emily H, Zach X, Jordi DEJESUS, Zach HILL, Salinas Moran. Mutation profile of JAK2 transcripts inpatients with chronic myeloproliferative neoplasias. J MolDiagn. 2009 Nov;11(1):49-53.doi:10.2353/jmoldx.2009.710069. Epub 2007Nov 03. PMID:55337222; PMCID: [id number].NCCN Clinical Practice Guidelines in Oncology (NCCNGuidelines) Myeloproliferative Neoplasms Version 3.2021 -July 03, 2022.Mendez LUNA, scientific publications editor. WHO classification of Tumours ofHaematopoietic and Lymphoid Tissues. 4th edn. Guerra,[place]: International Agency for Research on Cancer; 2017.Dianne Ames. Primary myelofibrosis: 2020 update on diagnosis,risk-stratification and management. Am J Hematol. ;96(1):145-162. doi: 10.1002/ajh.50864. Epub 2019. PMID: 45163514.Lashawn Jung, Shannan Chua. Genetic basis and molecularpathophysiology of classical myeloproliferativeneoplasms. Blood. 2017 Dec 9;129(6):667-679. doi:10.1182/uznac-4554-09-021515. Epub 2015Nov 18. PMID:25402702.Director Review Comment Reference Range: .Thomas Gilmore, PhD, [facility] Director, Molecular Oncology [facility] [place] [address] Performed at: [facility] [id number] [place], [place] [id number] Director: Jez Nazario [facility], Phone: [phone] at: [facility] [id number] [place], [place] [id number] Director: Jez Nazario [facility], Phone: [phone] at: [address] [id number] Director: Glenn Martínez PhD, Phone: [phone] Test Ordered: [id number] MPL Mutation AnalysisMPL Mutation Analysis Result: Comment [...] afrequency of approximately 5% and 1% respectively. PnaS977 mutation is detected in patients with hereditarythrombocythemia.Methodology: [...] Range: .1. Shikha PALMA et al. (2006). WLC762 mutations in myeloproliferative and other myeloid disorders: a study of 1182 patients. Blood 108:2085-9848.2. Sofia Dempsey and Wei MILLS. (2008). JAK2 and MPL mutations in myeloproliferative neoplasms: discovery and science. Leukemia 22:9259-6734.3. Riley GOODSON et al. (2009). Evidence for a auctioneer tobacco effect of the MPL-S505N mutation in eight [place] pedigrees with hereditary thrombocythemia. Haematologica 94(10):1368- 1374.Director Review: Comment HOLDEN Reference Range: .Isamar Gilmore, PhD, FACMGDirector, Molecular OncologyLabco Center for Molecular Biology and PathologyResLas [place], [place] [phone] test was developed and its performance characteristicsdetermined by [employer]. It has not been cleared orapproved by the Food and Drug Administration.Performed at: [facility] [id number] [facility], [place] [id number] Director: Jez Nazario [facility], Phone: [phone] at: [facility] [id number] [place], [place] [id number] Director: Jez Nazario [facility], Phone: [phone] at: - [facility] [id number] [place], [place] [id number] Director: Glenn Martínez PhD, Phone: [phone] Start: 04-11-2025 Cardiovascular stress test using pharmacologic [...] for malignant neoplasm of breast Mammogram Screening [facility] Start: 05-18-2025 Erythropoietin (EPO) [Units/volume] in Serum or Plasma [facility] Start: 05-18-2025 Procedure [facility] Start: 05-18-2025 [facility] Start: 01-02-2025 End: 01-02-2025 Patient encounter procedure 01/02/2025 9:30 AM EST Appointment Mammogram [address] [place] [address] Encounter for screening mammogram for breast cancer [Z12.31] Mammogram Comment on above: Encounter for screening mammogram for br east cancer [Z12.31] Start: 12-31-2024 Screening for malignant neoplasm of breast Mammogram Screening [facility] Start: 11-23-2024 Advance Directive Discussion Advance Directive Discussion [facility] Start: 07-24-2024 Covid-19 Vaccine ( season) Covid-19 Vaccine () [facility] Start: 03-17-2024 Patient discharge [facility] Start: 03-16-2024 Oxygen therapy [facility] Start: 03-16-2024 Application of intermittent pneumatic compression device [facility] Start: 03-16-2024 Following clinical pathway protocol [facility] Start: 03-16-2024 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, Reverse (Right) [facility] Start: 03-16-2024 Ambulation therapy management [facility] Start: 03-16-2024 Application of device [facility] Start: 03-16-2024 Assessment of risk of venous thromboembolism [facility] Start: 03-16-2024 Catheterization of vein [facility] Start: 03-16-2024 Following clinical pathway protocol [facility] Start: 03-16-2024 Incentive spirometry [facility] Start: 03-16-2024 Introduction of urinary catheter [facility] Start: 03-16-2024 Measuring intake and output [facility] Start: 03-16-2024 Neurovascular assessment [facility] Start: 03-16-2024 Patient education [facility] Start: 03-16-2024 Procedure discontinued [facility] Start: 03-16-2024 Provision of activity privileges [facility] Start: 03-16-2024 Recommendation to continue with treatment [facility] Start: 03-16-2024 Referral to occupational therapist [facility] Start: 03-16-2024 Vital signs measurements [facility] Start: 03-16-2024 Wound care [facility] Start: 03-16-2024 [facility] Start: 03-16-2024 Admission procedure [facility] Start: 03-16-2024 Consultation [facility] Start: 03-16-2024 Medication education [facility] Start: 02-24-2024 US scan of thyroid Thyroid [facility] Start: 11-23-2023 Advance Directive Discussion Advance Directive Discussion [facility] Start: 11-23-2023 Depression Assessment Depression Assessment [facility] Start: 07-24-2023 Covid-19 Vaccine ( season) Covid-19 Vaccine ( season) [facility] Start: 03-19-2023 US scan of thyroid Thyroid [facility] Start: 03-18-2023 [facility] Start: 02-17-2023 Mammography MAMMOGRAM [facility] Start: 02-17-2023 Screening for malignant neoplasm of breast Mammogram Screening [facility] Start: 08-25-2022 Colonoscopy COLONOSCOPY [facility] Start: 08-25-2022 COLORECTAL CANCER SCREENING COLORECTAL CANCER SCREENING [facility] Start: 08-25-2022 Screening for malignant neoplasm of colon [facility] Start: 03-15-2022 Patient discharge [facility] Work Phone: Start: 03-14-2022 Ambulation without limitation [facility] Work Phone: Start: 03-14-2022 Assessment of risk of venous thromboembolism [facility] Work Phone: Start: 03-14-2022 Catheterization of vein [facility] Work Phone: Start: 03-14-2022 Insertion of catheter into peripheral vein [facility] Work Phone: Start: 03-14-2022 Measuring intake and [facility] Work Phone: Start: 03-14-2022 Providing care according to standard [facility] Work Phone: Start: 03-14-2022 [facility] Work Phone: Start: 03-14-2022 End: 03-14-2022 Following clinical pathway protocol [facility] Work Phone: Start: 03-14-2022 Admission procedure [facility] Work Phone: Start: 11-23-2021 ADVANCE DIRECTIVE DISCUSSION ADVANCE DIRECTIVE DISCUSSION [facility] Start: 09-03-2018 DIABETES SCREEN DIABETES SCREEN [facility] Start: 09-03-2018 Diabetes Screening Diabetes Screening [facility] Start: 01-19-2018 SHINGRIX VACCINE (3 of 3) SHINGRIX VACCINE (3 of 3) [facility] Start: 04-28-2017 Lipid panel Lipid Screening [facility] Start: 04-28-2017 LIPID SCREEN LIPID SCREEN [facility] Start: 2012 RSV Vaccine (1 - 1-dose 60+ series) RSV Vaccine (1 - 1-dose 60+ series) [facility] Start: 2012 RSV Vaccine (1 - Risk 60-74 years 1-dose series) RSV Vaccine (1 - Risk 60-74 years 1-dose series) [facility] Start: 02-15-1997 COLOGUARD (FIT-DNA) COLOGUARD (FIT-DNA) [facility] Start: 02-15-[address] COLONOGRAPHY [facility] Start: 02-15-1997 FECAL OCCULT BLOOD FECAL OCCULT BLOOD [facility] Start: 02-15-1997 Screening for malignant neoplasm of colon [facility] Start: 02-15-1997 SIGMOIDOSCOPY SIGMOIDOSCOPY [facility] Start: 02-15-1971 Urine microalbumin profile [facility] Start: 02-15-1970 ANNUAL PCP TEAM CHRONIC DISEASE VISIT ANNUAL PCP TEAM CHRONIC DISEASE VISIT [facility] Start: 02-15-1970 Anxiety Screening Anxiety Screening [facility] Start: 02-15-1970 BP CONTROLLED (<130/80) BP CONTROLLED (<130/80) [facility] Start: 02-15-1970 Depression Screening Depression Screening [facility] Start: 02-15-1970 HEPATITIS C SCREENING HEPATITIS C SCREENING [facility] Start: 02-15-1970 Hepatitis C screening Hepatitis C Screening [facility] Start: 1964 Adult depression screening assessment DEPRESSION SCREENING [facility] C reactive protein [Mass/volume] in Serum or Plasma [facility] CBC W Auto Different ial panel - Blood [facility] CBC W Auto Different ial panel - Blood [facility] Comprehensive metabo lic 2000 panel - Serum or Plasma [facility] CT Abdomen [facility] D-dimer assay, quantitative [facility] DBT Breast - bilater al screening COLLEEN SCREENING [facility] Routine Encounter for screening mammogram for malignant neoplasm of breast 12/31/2023 9:57 AM EST [facility] Work Phone: End: 11-18-2025 DBT Breast - bilateral screening COLLEEN SCREENING [facility] Routine Encounter for gynecological examination (general) (routine) without abnormal findings Encounter for screening mammogram for breast cancer 1 Occurrences starting 10/19/2024 until 11/18/2025 [facility] Work Phone: Comment on above: 1 Occurrences starting 10/19/2024 until 11/18/2025 DBT Breast - bilater al screening COLLEEN SCREENING [facility] Routine Encounter for gynecological examination (general) (routine) without abnormal findings Encounter for screening mammogram for breast cancer 01/02/2025 10:05 AM EST [facility] Work Phone: Electrocardiographic procedure [facility] Erythrocyte sediment ation rate [facility] Erythropoietin (EPO) [Units/volume] in Serum or Plasma [facility] Erythropoietin (EPO) [Units/volume] in Serum or Plasma [facility] Ferritin [Mass/volum e] in Serum or Plasma [facility] Iron and Iron bindin g capacity panel - Serum or Plasma [facility] JAK2 gene p.[id number] e [Presence] in Blood or Tissue by Molecular genetics method [facility] Lactate dehydrogenas e measurement [facility] End: 03-19-2023 COLLEEN SCREENING [facility] COLLEEN SCREENING [facility] Routine Encounter for gynecological examination (general) (routine) without abnormal findings Encounter for screening mammogram for breast cancer 1 Occurrences starting 02/17/2022 until 03/19/2023 [facility] Work Phone: Comment on above: 1 Occurrences starting 02/17/2022 until 03/19/2023 Partial thromboplast in time, activated [facility] Patient referral [facility] Work Phone: Prothrombin time [facility] Reticulocyte count [facility] [place] Thyroid gland [facility] XR Chest PA and Lateral [facility] Immunizations Immunization Date Immunization Notes Care Provider Fa [facility] 02-20-2021 COVID-19, mRNA, LNP- S, PF, 100 mcg or 50 mcg dose; Translations: [Moderna COVID-19 Vaccine] DR CHADD BRAND MD [facility] 01-23-2021 COVID-19, mRNA, LNP- S, PF, 100 mcg or 50 mcg dose; Translations: [Moderna COVID-19 Vaccine] DR CHADD BRAND MD [facility] 08-17-2020 influenza, injectabl e, quadrivalent, contains preservative Robert Garsia MD Work Phone: [facility] 09-20-2019 influenza, seasonal, injectable Robert Garsia MD Work Phone: [facility] 09-13-2018 influenza, seasonal, injectable Robert Garsia MD Work Phone: [facility] 06-15-2018 pneumococcal polysaccharide vaccine, 23 valent Robert Garsia MD Work Phone: [facility] 06-10-2017 pneumococcal conjuga te vaccine, 13 valent Robert Garsia MD Work Phone: [facility] 04-21-2014 zoster vaccine, live Robert Garsia MD Work Phone: [facility] Payers Date Payer Category Payer Self-pay [id number] 2018 [facility] [place] [id number] 2018 Unknown [place] [id number] 2018-Present [phone] [address] [place] [address] Indemnity [id number] 2018 Unknown [id number] [id number]. [id number] 2018 Unknown [id number] 2017 Medicare MEDICARE MEDICAR E A AND B [id number] 2017-Present [phone] [address] [address] [place] [address] Medicare [id number] 2017 Unknown [id number] 2017 Medicare [id number] 2017 Medicare [id number]. [id number] 1950 Unknown [id number] 2.840.1.898082.3.579.2. 627 1950 Unknown [id number] 2.840.1.247002.3.579.2. 627 1952 Unknown [id number] 2.840.1.976374.3.579.2. 627 Unknown [id number] 2.840.1.474656.3.579.2. 462 Unknown [id number] 2.16840.1.075116.3.579.2. 462 Unknown [id number] 2.16840.1.206885.3.579.2. 462 Unknown [id number] 2.16840.1.235471.3.579.2. 462 Unknown [id number] 2.16840.1.736962.3.579.2. 462 Unknown [id number] 2.16840.1.785363.3.579.2. 462 Unknown [id number] 2.16.840.1.445399.3.579.2. 462 Unknown [id number] 2.16.840.1.010681.3.579.2. 462 Unknown [id number] 2.16.840.1.897777.3.579.2. 462 Unknown [id number] 2.16.840.1.180785.3.579.2. 462 Unknown [id number] 2.16.840.1.850834.3.579.2. 462 Unknown [id number] 2.16.840.1.915565.3.579.2. 462 Unknown [id number] 2.16.840.1.050301.3.579.2. 462 Social History Date Type Detail Facility Start: 02-03-2023 End: 05-08-2025 Tobacco smoking status NHIS Never smoked tobacco [facility] Work Phone: Start: 02-17-2022 End: 10-19-2024 Alcohol intake Current non-drinker of alcohol (finding) [facility] Start: 1950 Sex Assigned At Not on file C [facility] Start: 02-07-2022 End: 02-17-2022 Exposure to SARS-CoV-2 (event) Not sure [facility] Start: 03-14-2022 End: 03-02-2024 Tobacco smoking status NEIS Unknown if ever smoked [facility] Start: 07-25-2020 Non-smoker [facility] Start: 1950 Sex Assigned At Female A [facility] Start: 05-23-2013 End: 10-19-2024 Tobacco use and exposure Smokeless tobacco non-user [facility] Start: 02-17-2022 End: 12-31-2023 History of Social function [facility] Start: 02-17-2022 End: 12-31-2023 Tobacco use panel [facility] National Score (1-10 0), lower number is lower risk 58 [facility] Start: 01-22-2021 End: 02-18-2025 Sex Female (finding) [facility] Sexual Orientation Kiley [facility]se [facility] Medical Equipment Procedure Code Equipment Code Equipment [...] 03-16-2024 Polyethylene rev erse shoulder prosthesis cup ()[id number] FDA Start: 03-16-2024 Coated shoulder humeral stem prosthesis ()[id number] FDA Start: 03-16-2024 Reverse shoulder prosthesis head ()[id number] FDA Start: 03-16-2024 Reverse shoulder prosthesis base plate ()[id number] FDA Start: 03-16-2024 Asymmetric Patella FDA [...] Assessment Result Facility 03-17-2024 Functional status Chair [facility] Work Phone: 03-15-2022 Functional status Ambulates [facility] Work Phone: 08-31-2014 Are you deaf, or do you have serious difficulty hearing No 08/31/2014 10:12 AM Jessica Bryan MA No [facility] 08-31-2014 Are you blind, or do you have serious difficulty seeing, even when wearing glasses No 08/31/2014 10:12 AM Jessica Bryan MA [facility] 08-31-2014 Do you have serious difficulty walking or climbing stairs No 08/31/2014 10:12 AM Jessica Bryan MA No [facility] 08-31-2014 Do you have difficul ty dressing or bathing No 08/31/2014 10:12 AM EDT Jessica Crews MA No [facility] 08-31-2014 Because of a physica l, mental, or emotional condition, do you have difficulty doing errands alone such as visiting a physician's office or shopping No 08/31/2014 10:12 AM EDT Jessica Crews MA No [facility] Mental Status Date Assessment Result Facility 03-17-2024 Cognitive function Voice/Name [facility] Work Phone: 03-15-2022 Cognitive function Voice/Name [facility] Work Phone: 03-14-2022 Cognitive function Voice/Name [facility] Work Phone: 08-31-2014 Because of a physica l, mental, or emotional condition, do you have serious difficulty concentrating, remembering, or making decisions No 08/31/2014 10:12 AM EDT Jessica Crews MA No [facility] Clinical Notes 05-12-2007 to 06-18-2025 Note Date & Type Note Facility 06-18-2025 Radiology Diagnostic study note [facility] Imaging Services [address] [place] [address] [id number] Abdomen Complete MR#: [id number] Acct: [id number] Name: PARVIZ TRACY Rep #: [id number] : 1950 F 75 From: Kimmie Champion MD PCP: Dr. Farnaz Simon MD Status: REG CLI Study:Abdomen Complete Date of Exam: Exam# [id number] Ordering Dr: Mango Ortiz MD PROCEDURE: ABDOMEN COMPLETE 06/16/2025 REASON FOR EXAM: POLYCYTHEMIA TECHNIQUE: ABDOMEN COMPLETE COMPARISON: No FINDINGS: The liver is normal in size but there is hepatic steatosis and heterogeneous echotexture, correlate for medical liver disease... There is a 2.3 cm cyst.. There is cholelithiasis without wall thickening, pericholecystic fluid, or localized pain.. 6 mm CBD. Hepatopetal portal flow. Normal size spleen. Normal visible pancreas. The right kidney measures 12 cm in length without hydronephrosis. Left kidney measures 12 cm in length without hydronephrosis. There is a 2 cm simple cyst. The visible aorta is unremarkable. US/Abdomen Complete IMPRESSION: Cholelithiasis without specific ultrasound evidence of cholecystitis. Spleen is normal in size. Possible medical liver disease. Reading Location: [place] [address] CC: Dr. Farnaz Simon MD; Dr. Rudy Ortiz MD ~ Dining Car Waiter/Waitress: Signed [facility] 06-16-2025 Radiology Diagnostic study note [facility] Imaging Services [address] [place], [place] [id number] Chest PA and Lateral MR#: [id number] Acct: [id number] Name: PARVIZ TRACY Rep #: [id number] : 1950 F 75 From: Carolina Cordova MD PCP: Dr. Farnaz Simon MD Status: REG CLI Study:Chest PA and Lateral Date of Exam: 06/16/25 Exam# [id number] Ordering Dr: Mango Ortiz MD PROCEDURE: CHEST PA AND LATERAL 06/16/2025 REASON FOR EXAM: POLYCYTHEMIA/THYROID NODULES TECHNIQUE: CHEST PA AND LATERAL COMPARISON: 01/04/2025 FINDINGS: Mild pulmonary vascular congestion. No focal consolidation. No pleural effusion or pneumothorax. Cardiac silhouette is within normal limits. Calcified aortic arch. Right shoulder prosthesis. No acute fractures. RAD/Chest PA and Lateral IMPRESSION: Mild pulmonary vascular congestion. No focal consolidation. Reading Location: [id number] CC: Dr. Farnaz Simon MD; Dr. Rudy Ortiz MD ~ Dining Car Waiter/Waitress: Signed [facility] 06-08-2025 Progress note [facility] 06-08-2025 Progress note Note Date/Time June 08, 2025 4:10pm [facility] [address] [facility]. [place], [place] [address] OFFICE VISIT Date of Service: 06/08/25 1521 MR#: [id number] Acct: [id number] Name: PARVIZ TRACY Rep #: [id number] : 1950 From: Rudy Ortiz MD Age/Sex: 75/F [place] [facility] Status: Signed HPI Subjective Date of Service [...] MPL done and comes for follow up. [facility] Medical History Hypertension Hand pain, right [...] 25 mg PO DAILY 02/17/24 History vitamins A,C,E-zcuk-fvwmjk 2,148 1 tab PO BID 02/17/24 06/08/25 [...] Rudy Hatch> Date _ [facility] Signature: Date (if applicable) CC: Dr. Farnaz Simon MD ~ [facility] Work Phone: 1(663) 990-998506-26-2025 Evaluation note* Diagnosis Onset Date Resolution Status Admit Date Polycythemia chronic May 18, 2 025 3:27pm Polycythemia chronic June 08, 2 025 3:06pm [facility] Work Phone: 1(315) 437-730806-26-2025 [address] [facility] [place] [address] [place] [address] OFFICE VISIT Date of Service: 05/18/25 1535 MR#: [id number] Acct: [id number] Name: PARVIZ TRACY Rep #: [id number] : 1950 From: Rudy Ortiz MD Age/Sex: 75/F Location[place] [facility] Status: Signed HPI Subjective Date of Service 05/18/25 Chief Complaint Referred for evaluation of polycythemia. History of Present Illness 75-year-old woman has had mild polycythemia since 2014. She had JAK2 V6 17F done on 03/18/2023 whichwas negative. Erythropoietin level at that time was 13.8. Recently hemoglobin has been persistentlyabove normal so referred for further evaluation. She denies smoking, drinking alcohol. [facility] Medical History Hypertension Hand pain, right [...] 25 mg PO DAILY 02/17/24 History vitamins A,C,F-kxbw-vogtvk 2,148 1 tab PO BID 02/17/24 05/18/25 [...] applicable) CC: Dr. Farnaz Simon MD ~ [facility]06-26-2025 Progress note Author Rudy Ortiz [facility] Note Date/Time May 18, 2025 4:48 pm [facility] [address] [address] OFFICE VISIT Date of Service: 05/18/25 1535 MR#: [id number] Acct: [id number] Name: PARVIZ TRACY Rep #: [id number] : 1950 From: Rudy Ortiz MD Age/Sex: 75/F [place] [facility] Status: Signed HPI Subjective Date of Service 05/18/25 Chief Complaint Referred for evaluation of polycythemia. History of Present Illness 75-year-old woman has had mild polycythemia since 2014. She had JAK2 V6 17F done on 03/18/2023 which was negative. Erythropoietin level at that time was 13.8. Recently hemoglobin has been persistently above normal so referred for further evaluation. She denies smoking, drinking alcohol. [facility] Medical History Hypertension Hand pain, right [...] 25 mg PO DAILY 02/17/24 History vitamins A,C,U-qhwn-qrhmcl 2,148 1 tab PO BID 02/17/24 05/18/25 [...] applicable) CC: Dr. Farnaz Simon MD ~ [facility] Work Phone: 1(436) 989-528304-03-2025 Radiology Diagnostic study note [facility] Imaging Services [address] [place] [address] Thyroid MR#: [id number] Acct: [id number] Name: PARVIZ TRACY Rep #: [id number] : 1950 F 75 From: Kimmie Sanchez MD PCP: Dr. Farnaz Simon MD Status: REG CLI Study:Thyroid Date of Exam: 02/22/25 Exam# [id number] Ordering Dr: Karis Cardenas MD PROCEDURE: THYROID [...] indicated by ACR TI-RADS criteria. Reading Location: [facility] CC: Dr. Farnaz Simon MD; Dr. Mikhail Cardenas MD ~ Dining Car Waiter/Waitress: Signed [facility]02-10-2025 History of Present illness Narrative* Ginette Saleh [...] PATIENT PRESENTS WITH AN IMPLANTABLE OR ATTACHED RETANNED LEATHER ROLLER: No RADIOLOGY DEPARTMENT: Mammography PERIPHERAL IV DATA: Not applicable SIGNED BY: Sonal Mar January 02, 2025 9:25 AM documented [facility]2025 NoteHNO ID: [id number] Author: GINETTE SALEH Mammo Tech Service: ? Author Type: Circus Performer Type: Progress Notes Filed: 01/02/2025 09:25 Note [...] PATIENT PRESENTS WITH AN IMPLANTABLE OR ATTACHED RETANNED LEATHER ROLLER: No RADIOLOGY DEPARTMENT: Mammography PERIPHERAL IV DATA: Not applicable SIGNED BY: Ginette Saleh [employer] January 02, 2025 9:25 [facility]11-27-2024 NoteHNO ID: [id number] Author: ROBERT GARSIA MD Service: ? Author Type: Physician Type: Progress Notes Filed: 10/19/2024 09:20 Note Text: Parviz is a 74 year old who presents for an annual gynecologic exam without complaints. Postmenopausal: yes OB History T2 L2 SAB0 IAB1 Ectopic0 Multiple0 Live Births0 Comment: NORMAL VAGINAL DELIVERY X2. [employer]usement [employer] Work[employer] History LMP: Postmenopausal Age at Menarche: Age at First : Age at Menopause: [employer]usement [employer] Work[employer] History Comments: Sexual Activity: Yes; Male Contraception: No contraception data on record PAST MEDICAL HISTORY Diagnosis Date A-fib (HCC) Backache, unspecified Benign shuddering attacks Carpal tunnel syndrome Diastolic dysfunction DVT of leg (deep venous thrombosis) ([facility] 02/2019 Heart failure (HCC) Insomnia Macular degeneration Melanoma of right upper arm ([facility]) 01/2020 Osteopenia Other malignant neoplasm of skin, [...] Rotator cuff repair PAST SURGICAL HISTORY OF [place] teeth extracted PAST SURGICAL HISTORY OF 08/23/2006 [...] discussed with the Patient or Patient's Authorized Professor Of Environmental Studies. As applicable, any other physician, advance practice provider, medical student, or other health professional student that will be observing or involved in the sensitive examination for educational or training purposes was discussed with the Patient or Authorized Professor Of Environmental Studies. The Patient or Authorized Professor Of Environmental Studies has agreed to proceed with the sensitive [...] external genitalia normal, normal Bartholin's glands, urethra, Good[place]'s glands, no vulvar lesions, no cervical lesions, [...] year or sooner as needed Robert Garsia [facility]11-27-2024 History of Present illness Narrative* Robert Garsia MD - 10/19/2024 8:36 AM EST Parviz is a 74 year old who presents for an annual gynecologic exam without complaints. Postmenopausal: yes OB History T2 L2 SAB0 IAB1 Ectopic0 Multiple0 Live Births0 Comment: NORMAL VAGINAL DELIVERY X2. 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 As applicable, any other physician, advance practice provider, medical student, or other health professional student that will be observing or involved in the sensitive examination for educational or training purposes was discussed with the Patient or Authorized Professor Of Environmental Studies. The Patient or Authorized Professor Of Environmental Studies has agreed to proceed with the sensitive [...] external genitalia normal, normal Bartholin's glands, urethra, Goodville's glands, no vulvar lesions, no cervical lesions, [...] needed Robert Garsia MD documented [facility] Discharge summary Author Jeramy Agrawal [facility] March 17, 2024 9:50am Note Date/Time March 17, 2024 9:4 4am [facility] Medical Records Department [address] [place] [address] Instructions for Home/Discharge Instructions 03/17/24 0943 MR#: [id number] Acct: [id number] Name: PARVIZ TRACY Rep #:[id number] : [...] March 21, 2024) Additional Dressing/Incision Instructions:: Follow [facility] Post-op Instructions. Once postoperative dressing has [...] - Jeramy Agrawal PA-C [Med Staff - [facility] Prof] - 04/01/24 9:00 am Disposition Disposition (needs filled in before D/C Order can be placed): Home, Self Care 03/17/24 0950<Electronically signed by Jeramy PRITCHARD PA-C>Jeramy PRITCHARD PA-C CC: Dr. Farnaz Simon MD; Dr. Abrahan Silver DO; Dr. Saritha Sandoval DO ~ Signed [facility] Work Phone: 1(980) 578-656804-25-2024 Progress note Author Jeramy [facility] March 17, 2024 9:43am Note Date/Time March 17, 2024 9:3 8am [facility] Medical Records Department [address] [place] [address] Progress Note - Orthopedic 03/17/24932 MR#: [id number] Acct: [id number] Name: PARVIZ TRACY Rep #:[id number] : 1950 74 From: Jeramy PRITCHARD PA-C PCP: Dr. Farnaz Simon MD Status :ADM DANA Location: MS3 [id number] Subjective Subjective The patient was sitting in [...] begin 2 weeks postoperatively after follow-up with [facility] with x-rays and [...] would like her prescriptions E scribed to [facility]. We discussed all medications in great detail. She will follow-up per postoperative instructions. We did discuss her postoperativedressing in which she will remove 5 days postoperatively. She does have some tape allergy and if there are any complications from the dressing or Steri-Strips she will contact her office immediately. I have reviewed the [place] Automated Rx Reporting System (OARRS) report for [...] Cosigner Signature (if applicable): CC: ~ Signed [facility] Work Phone: 1(485) 677-704604-24-2024 Progress note Author Abrahan Silver [facility] March 16, 2024 5:23pm Note Date/Time March 16, 2024 5:2 3pm [facility] Medical Records Department [address] [place] [address] Progress Note - Hospitalist 03/16/24 1719 MR#: [id number] Acct: [id number] Name: PARVIZ TRACY Rep #:[id number] : 1950 74 From: Abrahan Silver DO PCP: Dr. Farnaz Simon MD Status :ADM DANA Location: [place] [address] Reason for Visit Reason for Visit: Diagnoses Primary osteoarthritis, right shoulder (03/16/24) Encounter for other preprocedural examination (03/16/24) intermediate designer (current) use of anticoagulants (03/16/24) Other manager intermediate (current) drug therapy (03/16/24) Subjective Subjective Consult [...] during thehospitalization. Charges/Coding Visit Charges Inpatient E&M: 76717 Subs Hosp L2 03/16/24 1723 <Electronically signed by Abrahan Silver DO> Cosigner Signature (if applicable): CC: ~ Signed [facility] Work Phone: 1(700) 398-470104-24-2024 History and physical note Author Dat Mata [facility] March 16, 2024 11:20am Note Date/Time March 07, 2024 12: 58pm [facility] Medical Records Department [address] [place] [address] History & Physical Exam 03/07/24 1257 MR#: [id number] Acct: [id number] Name: PARVIZ TRACY Rep #:[id number] : 1950 74 From: Jeramy PRITCHARD PA-C PCP: Dr. Farnaz Simon MD Status :[facility] Location: [place] [address] History and Physical History and Physical? Patient [...] her hair.? 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 There is [...] the primary care provider Dr. Simon and senior resident care director Dr. Brand. REVIEW OF SYSTEMS: Review Of [...] macular degeneration Accidents: None Surgical Hx: Tonsillectomy, [place] Teeth, D & C, Tubal Ligation Shoulder Arthroscopy LT - ROTATOR CUFF SURGERY - DR BETANCUR @[facility] Lumbar Micro Surgery? Bulging Disc - DR ROBERTO RICKETTS @ [facility] Moh's Surgery - FOR BASAL CELL, SKIN CA @ [facility] Moh's Surgery - FOR MELANOMA (TWICE) Lumpectomy - (2010) RT BREAST RT TKR - (08/08/2020) SAW @ [facility] Cataracts - BILAT Left Carpal Tunnel Release - (07/25/2022) SAW @ [facility] Right Carpal Tunnel Release - (08/08/2022) DR. MATA @ [facility] Biopsy on thyroid - (04/05/2023) [facility] Anesthesia Complications: Vomiting, Nausea, Hypotension, Trouble Waking [...] x-rays of the right shoulder reveal severe [id number] glenohumeral joint space narrowing, subchondral sclerosis, osteophyte [...] instructed by the primary care provider and senior resident care director to stop the Coumadin 5 days prior [...] MD; Dr. Dat Mata MD ~* Signed [facility] Work Phone: 1(171) 472-751804-24-2024 Procedure [facility] 01-01-2024 Miscellaneous Notes* Letter - Coordinator, Mammography - 01/01/2024 7:44 AM EST January 01, 2024 PID: [id number] Parviz Tracy [address] [place] [id number] Dear Ms. Tracy, We are pleased to [...] report will be kept on file at [facility] as part of your permanent medical record and are available for your continuing care. Thank you for allowing us to help in meeting your health care needs. Sincerely, Dr. Maier Interpreting Radiologist [facility] (Normal over 40) documented in this encounter[facility] History of Present illness Narrative* Ginette Saleh Mammo Tech - 12/31/2023 9:30 AM EST Radiology Service [...] PATIENT PRESENTS WITH AN IMPLANTABLE OR ATTACHED RETANNED LEATHER ROLLER: No RADIOLOGY DEPARTMENT: Mammography PERIPHERAL IV DATA: Not applicable SIGNED BY: Sonal Mar December 31, 2023 9:29 AM documented in this encounterW[facility]28[facility] History of Present illness Narrative* RT Tangela(Toma) - 02/17/2022 9:10 AM EDT Radiology Service [...] 17, 2022 9:08 AM documented in this encounterW[facility]28[facility] History of Present illness Narrative* Robert Garsia [...] Live Births0 Comment: NORMAL VAGINAL DELIVERY X2. [employer] Work[employer] History LMP: Postmenopausal Age at Menarche: Age at First : Age at Menopause: [employer] Work[employer] History Comments: Sexual Activity: Yes; Male Contraception: No contraception data on record PAST MEDICAL HISTORY Diagnosis Date Backache, unspecified Benign shuddering attacks Carpal tunnel syndrome Diastolic dysfunction DVT of leg (deep venous thrombosis) ([facility]) 02/2019 Insomnia Melanoma of right upper arm ([facility]) 01/2020 Osteopenia Other malignant neoplasm of skin, [...] Rotator cuff repair PAST SURGICAL HISTORY OF Oketo teeth extracted PAST SURGICAL HISTORY OF 08/23/2006 [...] external genitalia normal, normal Bartholin's glands, urethra, [place]'s glands, no vulvar lesions, no cervical lesions, [...] needed Robert Garsia MD documented in this encounterW[facility] History of Past illness Narrative* Problem Noted [...] of this encounter (statuses as of 02/17/2022) [facility] History of Past illness Narrative* Problem Noted [...] of this encounter (statuses as of 02/18/2022) [facility] History of Past illness Narrative* Problem Noted [...] of this encounter (statuses as of 01/01/2024) [facility] History of Past illness Narrative* Problem Noted [...] of this encounter (statuses as of 01/05/2024) [facility]uled Tests Laboratory* Basic Metabolic Panel 02/25/23 * Lipid Profile 02/25/23 * N-Terminal proBNP 02/25/23 [facility] Evaluation + Plan note Future Appointments Appointment Date:04/26/2025 10:30:00 AM Scheduled Provider:SINDI ROA Location:[facility] PERSON Appointment Type:CV OV Future Scheduled Tests Radiology* NM Myocardial Spect Rest/Stress 03/20/25 [facility] Evaluation note* Diagnosis Encounter for gynecological examination (general) (routine) without abnormal findings Encounter for screening mammogram for breast cancer documented in this encounter [facility] note* Diagnosis Encounter for gynecological examination (general) (routine) without abnormal findings Encounter for screening mammogram for breast cancer [facility] this encounter [facility]* Diagnosis Onset Date Resolution Status Atrial fibrillation acute Chest pain acute Paroxysmal atrial fibrillation acute [facility] Work Phone: Evaluation note* Diagnosis Onset Date Resolution Status Chest pain acute [facility] Work Phone: Evaluation note* Diagnosis Onset Date Resolution Status Chest pain resolved [facility] Work Phone: Evaluation noteNo assessment information available [facility] Work Phone: Evaluation note* Diagnosis Onset Date Resolution Status Multiple thyroid nodules acu te [facility] Work Phone: Evaluation note* Diagnosis Encounter for screening mammogram for malignant neoplasm of breast Other screening mammogram documented in this encounter [facility] note* Diagnosis Onset Date Resolution Status Multiple thyroid nodules acu te Atrial fibrillation acute 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 [facility] Work Phone: Evaluation note* Diagnosis Encounter for gynecological examination (general) (routine) without abnormal findings- Primary Encounter for screening mammogram for breast cancer documented in this encounter [facility] note* Diagnosis Encounter for gynecological examination (general) (routine) without abnormal findings Encounter for screening mammogram for breast cancer documented in this encounter [facility] note* Diagnosis Onset Date Resolution Status Admit Date Polycythemia chronic May 18, 025 3:27pm [facility] Work Phone: Hospital course Narrative No data available for this section [facility] Hospital Discharge instructions No data available for this section [facility] Note* CHADD BRAND MD: SIGN, VERIFY Event Display: Echocardiogram Complete w/Strain (AOH) Authored Date: [id number] [facility] Progress note No data available for this section [facility] Reason for referral (narrative)* Diagnostic Procedure Only (Routine) - Pending Review Specialty Diagnoses / Procedures Referred By Aj street Referred To Contact [facility] Diagnoses Encounter for gynecological examination (general) (routine) without abnormal findings Encounter for screening mammogram for breast cancer Procedures COLLEEN SCREENING W MALACHI SCREENING DIGITAL BREAST TOMOSYNTHESIS BI SCREENING MAMMOGRAPHY BI 2-VIEW BREAST INC Robert Buckley MD [address] [place] [address] [facility] [address] [place] [id number] Referral ID Status Reason Start Date Expiration Date Visits Requested Visits Authorized [id number] Pending Review Auto-Generat ed Referral 02/17/2022 03/19/2023 1 1 [facility] for referral (narrative)* Diagnostic Procedure Only (Routine) - Authorized Specialty Diagnoses / Procedures Referred By Aj street Referred To Contact [facility] Diagnoses Encounter for gynecological examination (general) (routine) without abnormal findings Encounter for screening mammogram for breast cancer Procedures COLLEEN SCREENING W MALACHI SCREENING DIGITAL BREAST TOMOSYNTHESIS BI SCREENING MAMMOGRAPHY BI 2-VIEW BREAST INC Robert Buckley MD [address] [place] [address] Imaging [address] [place] [address] Referral ID Status Reason Start Date Expiration Date Visits Requested Visits Authorized [id number] Authorized Auto-Generat ed Referral 11/18/2025 1 1 [facility] for referral (narrative)No reason for referral information availableWLakeHealth [facility] Work Phone: Reason for visit Narrative* Diagnostic Procedure Only (Routine) - Closed Specialty Diagnoses / Procedures Referred By Aj street Referred To Contact [facility] Diagnoses Encounter for screening mammogram for malignant neoplasm of breast Procedures COLLEEN SCREENING W MALACHI SCREENING DIGITAL BREAST TOMOSYNTHESIS BI SCREENING MAMMOGRAPHY BI 2-VIEW BREAST INC Robert Buckley MD [address] [address] [facility] [address] [place] [address] Referral ID Status Reason Start Date Expiration Date V isits Requested Visits Authorized [id number] Closed Auto-Generate d Referral 12/17/2023 01/15/2025 1 1 [facility] N[facility]* Diagnostic Procedure Only (Routine) - Closed Specialty Diagnoses / Procedures Referred By Aj t Referred To Contact [facility] Diagnoses Encounter for gynecological examination (general) (routine) without abnormal findings Encounter for screening mammogram for breast cancer Procedures COLLEEN SCREENING W MALACHI SCREENING DIGITAL BREAST TOMOSYNTHESIS BI SCREENING MAMMOGRAPHY BI 2-VIEW BREAST INC Robert Buckley MD [address] [place] [address] Phone: tel: fax: [facility] [address] [place] [address] Referral ID Status Reason Start Date Expiration Date V isits Requested Visits Authorized [id number] Closed Auto-Generate d Referral 10/19/2024 11/18/2025 1 1 [facility] Chief Complaint and Reason for Visit Chief [...] Yearly f/u discuss results thyroid US 02/23 [facility] REVERSE RIGHT TOTAL SHOULDER ARTHRO REVERSE RIGHT [...] pm E-ORDER June 08, 2025 4:30 pm Chief Complaint Admit Date F/U THYROID NODULES February 22, 2025 11:3 9am SOB April 11, 2025 6:24a m Shortness of breath April 11, 2025 5:46p m POLYCYTHEMIA May 18, 2025 3:27 pm MED ONC May 18, 2025 3:46 pm [facility] June 08, 2025 3:06 pm E-ORDER June 08, 2025 4:30 pm Secondary polycythemia June 16, 2025 7 :30am Chief Complaint Admit Date F/U THYROID NODULES February 22, 2025 11:3 9am SOB April 11, 2025 6:24a m Shortness of breath April 11, 2025 5:46p m POLYCYTHEMIA May 18, 2025 3:27 pm MED ONC May 18, 2025 3:46 pm [facility] June 08, 2025 3:06 pm E-ORDER June 08, 2025 4:30 pm Secondary polycythemia June 16, 2025 7 :30am F/U June 22, 2025 4:37 pm Advance Directives No Advanced Directives Records Found Advance Directive Response Recorded Date/ Time Living Will Yes March 14, 2022 3:22pm Power of Priming Powder Premix Blender Yes March 14 3:22pm Advance Directive Response Recorded Date/ Time Living Will Yes March 14, 2022 6:38pm Power of Priming Powder Premix Blender Yes March 14 6:38pm Advance Directive Response Recorded Date/ Time Name of Medical Power of Priming Powder Premix Blender Alejandra Cash March 14, 2022 6:38pm Living Will Yes March 14, 2022 6:38pm Power of Priming Powder Premix Blender Yes March 14 6:38pm Advance Directive Response Recorded Date/ Time Living Will Yes March 14, 2022 5:38pm Power of Priming Powder Premix Blender Yes March 14 5:38pm Advance Directive Response Recorded Date/ Time Name of Medical Power of Priming Powder Premix Blender ON FILE February 17, 2024 2:20pm Living Will Yes February 17, 2024 2:20pm Power of Priming Powder Premix Blender Yes February 16 2:20pm Advance Directive Response Recorded Date/ Time Name of Medical Power of Priming Powder Premix Blender ON FILE March 16, 2024 4:24pm Living Will Yes March 16, 2024 4:24pm Power of Priming Powder Premix Blender Yes March 16 4:24pm Advance Directive Response Recorded Date/ Time Living Will Yes February 17, 2024 2:20pm Do you have a Healthcare Power of Priming Powder Premix Blender? Yes February 17, 2024 2:20pm Summary Purpose Family History No Family History Records Found Additional Source Comments Source Comments (unrecognize d section and content) In the event this informatio n is protected by the [facility] Confidentiality of Alcohol and Drug Abuse Patient Records regulations: The Federal rules restrict any use of the information to criminally investigate or prosecute any alcohol or drug abuse patient.[facility] Hospital[facility] the event this information is protected by the Federal Confidentiality of Alcohol and Drug Abuse Patient Records regulations: The Federal rules restrict any use of the information to criminally investigate or prosecute any alcohol or drug abuse patient.[facility] HospitalIn the event this information is protected by the Federal Confidentiality of Alcohol and Drug Abuse Patient Records regulations: The Federal rules restrict any use of the information to criminally investigate or prosecute any alcohol or drug abuse patient.[facility] HospitalIn the event this information is protected by the Federal Confidentiality of Alcohol and Drug Abuse Patient Records regulations: The Federal rules restrict any use of the information to criminally investigate or prosecute any alcohol or drug abuse patient.[facility] HospitalIn the event this information is protected by the Federal Confidentiality of Alcohol and Drug Abuse Patient Records regulations: The Federal rules restrict any use of the information to criminally investigate or prosecute any alcohol or drug abuse patient.[facility] HospitalIn the event this information is protected by the Federal Confidentiality of Alcohol and Drug Abuse Patient Records regulations: The Federal rules restrict any use of the information to criminally investigate or prosecute any alcohol or drug abuse patient.[facility] HospitalIn the event this information is protected by the Federal Confidentiality of Alcohol and Drug Abuse Patient Records regulations: The Federal rules restrict any use of the information to criminally investigate or prosecute any alcohol or drug abuse patient.[facility] Care Teams (unrecognized sec tion and content) Back Tufter Relationship Specialty Start Date End Date Farnaz Simon MD [address] [place], [place] [id number] PCP - General Family Practice 11/27/10 Back Tufter Relationship Specialty Start Date End Date Farnaz Simon MD [address] [facility] [place] [id number] PCP - General Family Practice 11/27/10 Team Status: Active Member Role Status Dates Dr. Arslan Smion MD Family Provider Active Dr. Arslan Simon [...] MD Attending Provider, Referring P rovider Active Back Tufter Relationship Specialty Start Date End Date Farnaz Simon MD [address] [address] PCP - General Family Medicine 11/27/10 Back Tufter Relationship Specialty Start Date End Date Farnaz Simon MD [address] [place] [address] PCP - General Family Medicine 11/27/10 Team [...] MD Attending Provider, Referring P jim Active Team Status: Inactive Member Role Status [...] Provider, Other Provider Active Dr. Abrahan Silver , Attending Provider Active Team Status: Inactive Member Role Status Dates Dr. Farnaz Simon MD Primary Care Provider Acti ve Dr. Dat Mata MD Admit Provider, A ttending Provider, Referring Provider Active Dr. Abrahan Silver , DO Other Provider Active Dr. Saritha Sandoval , DO Other Provider Active Back Tufter Relationship Specialty Start Date End Date Farnaz Simon MD [address] [place] [address] PCP - General Family Medicine 11/27/10 Back Tufter Relationship Specialty Start Date End Date Farnaz Simon MD [address] [place] [address] PCP - General Family Medicine 11/27/10 Team [...] February 22, 2025 End: February 22, 2025 Back Tufter Relationship Specialty Start Date End Date Farnaz Simon MD [address] [place] [address] PCP - General Family Medicine 11/27/10 Team Status: Inactive Member Role Status Dates Dr. Farnaz Simon MD Primary Care Provider Acti ve Start: April 11, 2025 End: April 11, 2025 Sindi Roa BACKHOE OPERATOR, BACKHOE OPERATOR-C Attending Provider Active Start: April 11, 2025 End: April 11, 2025 Sindi Fish BACKHOE OPERATOR, BACKHOE OPERATOR-C Referring Provider Active Start: April 11, 2025 End: April 11, 2025 Team Status: Active Member Role Status Dates Dr. Farnaz Simno MD Primary Care Provider Acti ve Start: April 11, 2025 Sindi Crispin BACKHOE OPERATOR, BACKHOE OPERATOR-C Referring Provider Active Start: April 11, 2025 Sindi Crispin BACKHOE OPERATOR, BACKHOE OPERATOR-C Other Provider Active Star t: April 11, [...] 2025 End: April 11, 2025 Sindi Fish BACKHOE OPERATOR, BACKHOE OPERATOR-C Attending Provider Active Start: April 11, 2025 End: April 11, 2025 Sindi Fish BACKHOE OPERATOR, BACKHOE OPERATOR-C Referring Provider Active Start: April 11, 2025 End: April 11, 2025 Team Status: Active Member Role/Relationship Status Dates Dr. Farnaz Simon MD Primary Care Provider Acti ve Start: April 11, 2025 Sindi Fish BACKHOE OPERATOR, BACKHOE OPERATOR-C Referring Provider Active Start: April 11, 2025 Sindi Fish BACKHOE OPERATOR, BACKHOE OPERATOR-C Other Provider Active Star t: April 11, [...] 2025 End: April 11, 2025 Sindi Fish BACKHOE OPERATOR, BACKHOE OPERATOR-C Attending Provider Active Start: April 11, 2025 End: April 11, 2025 Sindi Fish BACKHOE OPERATOR, BACKHOE OPERATOR-C Referring Provider Active Start: April 11, 2025 End: April 11, 2025 Team Status: Active Member Role/Relationship Status Dates Dr. Farnaz Simon MD Primary Care Provider Acti ve Start: April 11, 2025 Sindi Fish BACKHOE OPERATOR, BACKHOE OPERATOR-C Referring Provider Active Start: April 11, 2025 Sindi Fish BACKHOE OPERATOR, BACKHOE OPERATOR-C Other Provider Active Star t: April 11, [...] Primary Care Provider Acti ve Start: June 16, 2025 End: June 16, 2025 Dr. Rudy Ortiz MD Attending Provider Active S tart: June 16, 2025 End: June 16, 2025 Dr. Rudy Ortiz MD Referring Provider Active S tart: June 16, 2025 End: June 16, 2025 Team Status: Inactive Member Role/Relationship Status Dates Dr. Farnaz Simon MD Primary Care Provider Acti ve Start: June 22, 2025 End: June 22, 2025 Dr. Farnaz Simon MD Referring Provider Active Start: June 22, 2025 End: June 22, 2025 Dr. Rudy Ortiz MD Attending Provider Active S tart: June 22, 2025 End: June 22, 2025 Goals (unrecognized section and content) Goals [...] section and content) DATE CREATED AUTHOR 03/15/2024 [facility] ([place]) DATE CREATED AUTHOR AUTHOR'S ORGANIZ ATION 01/03/2025 [place] DATE CREATED AUTHOR AUTHOR'S ORGANIZ ATION 03/21/[address] [facility] DATE CREATED AUTHOR AUTHOR'S ORGANIZ ATION 06/24/2025 [facility] Reason for Visit (unrecogniz ed section [...] BE BASED ON THE PRIMARY CLINICAL RECORDS. [employer] provides no warranty or guarantee of the accuracy or completeness of information in this document.
--- NOTE | 2025-07-01 04:25 | EX.ED.DYSGE1 ---
HPI History of Present Illness Chief Complaint: Chest Pain Narrative Narrative: Patient is a 75-year-old female with past medical history of atrial fibrillation on Eliquis, hypertension, AIDA, CHF, hypothyroidism, SVT who presented to the emergency department the chief complaint of chest discomfort and not feeling well. Patient states that yesterday she developed right shoulder pain and notes that her right shoulder pain has been constant. States that today this evening she developed pain in both of her shoulders and noted that she felt some discomfort underneath her left breast and also noted that she had some shortness of breath associated with this and became concerned therefore she came here for further evaluation management. Patient states that she has been compliant with all her medications that missed any doses. [facility] Medical History Hypertension Hand pain, right Elevated hemoglobin Atrial fibrillation Wears glasses Thyroid disease Arthritis DVT (deep venous thrombosis) Restless legs Non-smoker CPAP (continuous positive airway pressure) dependence Sleep apnea Shortness of breath on exertion History of edema History of CHF (congestive heart failure) History of stress test History of echocardiogram Cardiology follow-up encounter History of atrial fibrillation Cataract (lens) fragments in eye following cataract surgery, bilateral Cancer Atrial fibrillation with rapid ventricular response (03/14/22) Hypothyroidism H/O Mohs micrographic surgery for skin cancer Diastolic dysfunction SVT (supraventricular tachycardia) Home Medications ?Medication ?Instructions ?Recorded ?Last Taken ?Type diltiazem HCl 120 mg 120 mg PO DAILY BP 03/12/19 03/16/24 History capsule,extended release 24 hr, controlled (DILT-XR) biotin 5 mg tablet 5 mg PO DAILY hair loss 07/25/20 03/10/24 History levothyroxine 75 mcg tablet 75 mcg PO DAILY thyroid 03/14/22 03/16/24 History (Euthyrox) metoprolol succinate 25 mg 25 mg PO DAILY #30 tabs 03/15/22 Unknown Rx tablet,extended release 24 hr calcium 600 mg (as 1 tab PO DAILY 02/17/24 03/10/24 History carbonate)-vitamin D3 5 mcg (200 unit) tablet (Calcium 600 + D(3)) clobetasol 0.05 % scalp solution 1 applic topical MOFR 02/17/24 Unknown History spironolactone 25 mg tablet 25 mg PO DAILY 02/17/24 03/15/24 History vitamins A,C,O-sbxt-ycszkk 2,148 1 tab PO BID 02/17/24 03/10/24 History mcg-113 mg-45 mg-17.4 mg tablet (Eye Multivitamin) apixaban 5 mg tablet (Eliquis) 5 mg PO BID 05/08/25 Unknown History cholecalciferol (vitamin D3) 50 2,000 unit PO DAILY supplement 05/08/25 Unknown History mcg (2,000 unit) capsule cyclosporine 0.05 % eye drops in a 1 drp ophthalmic (eye) 05/08/25 Unknown History dropperette (Restasis) furosemide 40 mg tablet 40 mg PO DAILY 05/08/25 Unknown History magnesium gluconate 12.5 mg 12.5 mg PO QDAY 05/08/25 Unknown History magnesium (250 mg) tablet Allergy/AdvReac Type Severity Reaction Status Date / Time adhesive Allergy Rash Verified 07/01/25 03:30 atenolol Allergy NEEDS Verified 07/01/25 03:30 FOLLOW-UP egg Allergy Rash Verified 07/01/25 03:30 risedronate sodium (From Allergy Swelling Verified 07/01/25 03:30 Actonel) Sulfa (Sulfonamide Allergy Other Verified 07/01/25 03:30 Antibiotics) DISPOSABLE STITCHES Allergy Rash Uncoded 06/22/25 16:39 Surgical History Squamous cell carcinoma of left lower leg History of bilateral carpal tunnel release History of right breast biopsy (~2010) History of D&C History of wisdom tooth extraction Hx of tubal ligation History of arthroplasty of left shoulder S/P lumbar microdiscectomy S/P tonsillectomy History of right knee joint replacement Social History household members: spouse current occupational status: retired Smoking Status: Never smoker alcohol intake: never substance use type: does not use ROS ROS ED ROS Narrative Constitutional: Denies any fevers, chills, headaches Eyes: Denies change in vision double vision blurry vision Cardiovascular: Complains of chest discomfort as noted above denies palpitations Respiratory: Denies coughing wheezing complains of shortness of breath as noted above Abdomen: Denies nausea vomit diarrhea : Denies any urinary symptoms Neurological: Denies any numbness, weakness, tingling Musculoskeletal: Complains of back pain in her shoulders as noted above Skin: Denies any rashes or lesions EXAM Physical Exam Narrative Exam Narrative: General: Patient was lying in bed rest comfortably did not appear to be in acute distress Head: Atraumatic, normocephalic Eyes: PERRL bilaterally, EOMI bilaterally, no conjunctival injection noted Neck: Soft, supple, trachea midline Cardiovascular: Regular rate and rhythm Respiratory: Clear to auscultation bilaterally Abdomen: No tenderness to palpation Extremities: Radial pulses +2/4 in the bilateral upper extremities, +5/5 strength noted in the bilateral upper and lower extremities Neurological: Patient is following commands knew that she was at [facility] the year is 2024 Skin: Warm, dry, intact no rashes or lesions noted Const Vital Signs: 07/01/25 03:31 07/01/25 03:43 07/01/25 03:45 Temperature 98.0 F Temperature Source Oral Pulse Rate 77 72 69 Respiratory Rate 16 29 H 18 Blood Pressure 174/74 H Blood Pressure Mean 107 Pulse Ox 94 Oxygen Delivery Method Room Air 07/01/25 03:58 07/01/25 04:00 07/01/25 04:00 Temperature Temperature Source Pulse Rate 68 Respiratory Rate 21 H Blood Pressure 154/83 H 154/83 H Blood Pressure Mean 104 104 Pulse Ox Oxygen Delivery Method Room Air 07/01/25 04:15 07/01/25 04:30 07/01/25 04:45 Temperature Temperature Source Pulse Rate 65 67 69 Respiratory Rate 18 21 H 18 Blood Pressure 142/59 H 136/75 H 133/82 H Blood Pressure Mean 84 94 98 Pulse Ox 92 92 92 Oxygen Delivery Method 07/01/25 05:00 07/01/25 05:15 07/01/25 05:37 Temperature Temperature Source Pulse Rate 68 69 68 Respiratory Rate 21 H 22 H 26 H Blood Pressure 126/68 H 126/63 H Blood Pressure Mean 87 81 Pulse Ox 92 93 94 Oxygen Delivery Method 07/01/25 05:45 07/01/25 06:00 07/01/25 06:15 Temperature Temperature Source Pulse Rate 68 68 68 Respiratory Rate 29 H 22 H 13 Blood Pressure Blood Pressure Mean Pulse Ox 93 95 96 Oxygen Delivery Method MDM MDM MDM Narrative Medical decision making narrative: Patient is a 75-year-old female who presented to the emergency department the chief complaint of chest discomfort. On the differential diagnosis includes not limited to ACS, pneumonia, pneumothorax, AAA. Once the workup is obtained reviewed she will be reevaluated. Patient CBC reviewed showed no evidence leukocytosis white blood count normal 8.7, hemoglobin 16.2, platelet count was noted be normal at 231. Patient sodium normal 140, potassium normal at 4.1, creatinine was normal at 0.87. Patient's troponin was less than 6 with a delta troponin of less than 6, EKG was reviewed which showed sinus rhythm with a rate of 69 bpm. Patient proBNP was normal at 149. Patient chest x-ray reviewed by myself and by radiology which showed no acute chest findings. On reevaluation the patient she is feeling better she like to go home at this point in time. At this time point, have low suspicion that this is cardiac etiology as her chest pain/shoulder discomfort has been going on for few days now. She also notes that she had a stress test in the wintertime and was normal as well. She was advised to follow-up with her doctor in outpatient and return if worsening symptoms or concerns. She is agreeable this plan as well as family was at bedside all question concerns answered she was discharged home in stable condition. Lab Data Labs: Laboratory Results - last 24 hr 07/01/25 07/01/25 07/01/25 03:50 03:50 05:50 WBC 8.7 RBC 5.20 Hgb 16.2 H Hct 47.7 H MCV 91.7 MCH 31.2 MCHC 34.0 RDW Std Deviation 46.7 H RDW Coeff of Gallo 13.8 Plt Count 231 MPV 9.5 Immature Gran % (Auto) 0.300 Neut % (Auto) 56.6 Lymph % (Auto) 27.3 [place] % (Auto) 11.2 H Eos % (Auto) 3.7 Baso % (Auto) 0.9 Absolute Neuts (auto) 4.9 Absolute Lymphs (auto) 2.36 Nucleated RBC % 0 Sodium 140 Potassium 4.1 Chloride 106 Carbon Dioxide 20.3 L Anion Gap 14 BUN 20 H Creatinine 0.87 Estim Creat Clear Calc 72.71 Est GFR (MDRD) Non-Af 70 BUN/Creatinine Ratio 23.0 H Glucose 114 H Calcium 9.5 Troponin T High Sens < 6 Troponin T Hi Sens 2 Hr < 6 NT pro BNP II 149 Cancelled Radiography Diagnostic Testing: Clinical Impression(s) from Imaging Studies Chest X-Ray 07/01/25 04:00 IMPRESSION: No acute chest findings. [facility] Triage Chief Complaint: Chest Pain ED Provider: Jan Caba Dx/Rx/DC Orders Clinical Impression: Chest pain, Atrial fibrillation, Hypertension Prescriptions: No Action Eliquis 5 mg tablet 5 mg PO BID magnesium gluconate 12.5 mg magne- sium (250 mg) tablet 12.5 mg PO QDAY cyclosporine [Restasis] 0.05 % dropperette 1 drp ophthalmic (eye) Patient Comments: [NO ORIGINAL SIG] furosemide 40 mg tablet 40 mg PO DAILY diltiazem HCl [DILT-XR] 120 capsule,ext.rel 24h degradable 120 mg PO DAILY biotin 5 MG tablet 5 mg PO DAILY cholecalciferol (vitamin D3) 50 mcg (2,000 unit) capsule 2,000 unit PO DAILY levothyroxine [Euthyrox] 75 mcg tablet 75 mcg PO DAILY Patient Comments: TAKE 1 TABLET BY MOUTH ONCE DAILY metoprolol succinate 25 mg tablet extended release 24 hr 25 mg PO DAILY Qty: 30 0RF spironolactone 25 mg tablet 25 mg PO DAILY clobetasol 0.05 % solution 1 applic TOPICAL MOFR Patient Comments: APPLY TO THE SCALP ONCE DAILY FOR 3 WEEKS, THEN TWICE WEEKLY NEEDED FOR MAINTENANCE calcium carbonate-vitamin D3 [Calcium 600 + D(3)] 600 mg-5 mcg (200 unit) tablet 1 tab PO DAILY Eye Multivitamin 2,148 mcg-113 mg-45 mg-17.4mg tablet 1 tab PO BID Rx Instructions: administer with AM and PM meals Primary Care Provider: Pedro Simon Referrals: Pedro Simon MD [Primary Care Provider] - Activity Restrictions/Additional Instructions: Follow-up with your doctor in the outpatient setting. Return with worsening symptoms or any concerns. Your blood work, EKG, chest x-ray did not show any acute findings. Print Language: Bengali Disposition Disposition: Home, Self Care
[2025-07-01 05:02] LABS: Anion Gap 14 (5-15); BUN 20 mg/dL (4-19); BUN/Creat Ratio 23.0 RATIO (10-20); Calcium,Total 9.5 mg/dL (7.6-11.0); Carbon Dioxide 20.3 mmol/L (21.0-32.0); Chloride 106 mmol/L (98-108); Estimated Creatinine Clearance 72.71 ml/min (50-250); Glucose 114 mg/dL (70-99); Potassium 4.1 mmol/L (3.3-5.1); Pro- Brain NATRIURETIC PEPTIDE 149 pg/mL (<=900); Troponin T High Sensitivity < 6 ng/L (<=14)
[2025-07-01 06:16] LABS: Troponin T High Sens 2 HR < 6 ng/L (<=14)
== END 2025-07-01 06:37 | disposition home or self-care (01) ==
PROVIDERS: Emergency Provider Emergency Medicine; PCP Family Medicine; Visit Provider Emergency Medicine
DX: R07.9 Chest pain, unspecified (principal); I11.0 Hypertensive heart disease with heart failure; I50.9 Heart failure, unspecified; I48.91 Unspecified atrial fibrillation; Z79.01 Long term (current) use of anticoagulants; M25.511 Pain in right shoulder
CPT/HCPCS: 36415; 71046; 80048; 83880; 84484; 85025; 93005; 96360; 99283; A4216

== ENCOUNTER → 2025-07-19 | Outpatient (CLI) | payer MEDICARE, BC, SELFPAY ==
[2025-07-19 11:32] LABS: Carboxyhemoglobin Order ORDER TUBE
[2025-07-19 15:34] LABS: Carboxyhemoglobin Frac (CO) 0.9 % (0.0-1.5)
== END | disposition home or self-care (01) ==
LOC: MTLAB 10:29
PROVIDERS: PCP Family Medicine; Referring Provider Internal Medicine Medical Oncology; Visit Provider Internal Medicine Medical Oncology
DX: D58.2 Other hemoglobinopathies (principal)
CPT/HCPCS: 36415; 82375

== ENCOUNTER → 2025-11-09 | Outpatient (CLI) | payer MEDICARE, BC, SELFPAY | END | disposition home or self-care (01) | LOC: PSN 08:24 | PROVIDERS: PCP Family Medicine; Referring Provider Nurse Practitioner Family; Visit Provider Nurse Practitioner Family | DX: R06.02 Shortness of breath (principal) | CPT/HCPCS: 94060; 94726; 94729 ==

== ENCOUNTER → 2025-11-20 | Outpatient (CLI) | payer MEDICARE, BC, SELFPAY ==
--- NOTE | 2025-11-20 12:23 | CDU_ITS ---
Reason For Study Reason For Study: Amaurosis Fugax Rt. Velocities/BP Lt. Velocities/BP Prox CCA 79/12 cm/sec. Prox CCA 131/20 cm/sec. Mid CCA 88/15 cm/sec. Mid CCA 95/18 cm/sec. Dist CCA 75/13 cm/sec. Dist CCA 89/16 cm/sec. Prox ICA 74/20 cm/sec. Prox ICA 78/14 cm/sec. Mid ICA 83/27 cm/sec. Mid ICA 68/16 cm/sec. Dist ICA 96/23 cm/sec. Dist ICA 131/25 cm/sec. Rt. ICA/CCA = 1.1. Lt. ICA/CCA = 1.4. Prox ECA 116/12 cm/sec. Prox ECA 105/11 cm/sec. Rt. Vert. 53/12 cm/sec. Lt. Vert. 71/14 cm/sec. Right Extracranial There is intimal thickening but no significant atherosclerotic plaque noted in the right common carotid artery. There is intimal thickening but no significant atherosclerotic plaque noted in the right internal carotid artery. There is no significant atherosclerotic plaque noted in the right external carotid artery. Antegrade flow is noted in the right vertebral artery. Left Extracranial There is intimal thickening but no significant atherosclerotic plaque noted in the left common carotid artery. There is heterogeneous, irregular atherosclerotic plaque noted in the left internal carotid artery. The left internal carotid artery is very tortuous. There is no significant atherosclerotic plaque noted in the left external carotid artery. Antegrade flow is noted in the left vertebral artery. Procedure Carotid Duplex 11008. This is a Carotid Duplex examination using B-mode, color flow and specral Doppler. Exam performed in department. VL/Carotid Duplex Ultrasound Interpretation Summary No significant atherosclerotic plaque or stenosis noted in the right internal c arotid artery. Mild (<50%) stenosis left extracranial internal carotid. Flow within the vertebral arteries is antegrade bilaterally. Ordering Physician: RAHUL MCPHERSON Referring Physician: Pedro Simon Performed By: Lilliana Lee RDCS, RVT
== END | disposition home or self-care (01) ==
LOC: CVS 12:22
PROVIDERS: PCP Family Medicine
DX: G45.3 Amaurosis fugax (principal)
CPT/HCPCS: 93880